=== PATIENT | female | born 1965 | race Caucasian/White ===

== ENCOUNTER 2024-10-21 09:19 | Outpatient (CLI) | payer MEDICARE, SELFPAY ==
--- OUTSIDE RECORDS SUMMARY | 2024-10-21 09:22 | XMS_ITS | Encounter Summary ---
Author Organization [employer] Address [address] [place] [address] Care Team Providers Care Tool Dispatcher Name Role Phone Santosh Briones MD Primary Care Provider [phone] Santosh Briones MD Primary Care Provider [phone] Julius Cho MD Unavailable Lew Ross MD Unavailable Karlos Islas PA-C Unavailable [phone] Encounter Details Date Type Department Care Team (Late st Contact Info) Description 07/24/2021 Transcribed Document [facility] [place] [facility] [place] [address] ProviderAle MD [address] [place] [address] Social History Tobacco Use Types Packs/Day Years Used Date Smoking Tobacco: Never Assessed Comments Unknown Sex and Gender Information Value Date Recorded Sex Assigned at Female 03/19/2022 10:49 AM PRIZE COORDINATOR Legal Sex Female 5:46 PM CDT Gender Identity Female 03/19/2022 10:49 AM PRIZE COORDINATOR Sexual Orientation Not on file documented as of this encounter Miscellaneous Notes * Cerner Conversion Note - Ale Johnson MD - 07/24/2021 1:17 PM CDT Patient Education Materials Follows: How to Use Compression Stockings Compression stockings are elastic socks that squeeze the legs. They help increase blood flow (circulation) to the legs, decrease swelling in the legs, and reduce the chance of developing blood clots in the lower legs. Compression stockings are often used by people who: ??? Are recovering from surgery. ??? Have poor circulation in their legs. ??? Tend to get blood clots in their legs. ??? Have bulging (varicose) veins. ??? Sit or stay in bed for long periods of time. Follow instructions from your health care provider about how and when to wear your compression stockings. How to wear compression stockings Before you put on your compression stockings: ??? Make sure that they are the correct size and degree of compression. If you do not know your size or required grade of compression, ask your health care provider and follow the manufacturers representative's instructions that come with the stockings. ??? Make sure that they are clean, dry, and in good condition. ??? Check them for rips and tears. Do not put them on if they are ripped or torn. Put your stockings on first thing in the morning, before you get out of bed. Keep them on for as long as your health care provider advises. When you are wearing your stockings: ??? Keep them as smooth as possible. Do not allow them to bunch up. It is especially important to prevent the stockings from bunching up around your toes or behind your knees. ??? Do not roll the stockings downward and leave them rolled down. This can decrease blood flow to your leg. ??? Change them right away if they become wet or dirty. When you take off your stockings, inspect your legs and feet. Check for: ??? Open sores. ??? Red spots. ??? Swelling. General tips ??? Do not stop wearing compression stockings without talking to your health care provider first. ??? Wash your stockings every day with mild detergent in cold or warm water. Do not use bleach. Air-dry your stockings or dry them in a clothes dryer on low heat. It may be helpful to have two pairs so that you have a pair to wear while the other is being washed. ??? Replace your stockings every 3?6 months. ??? If skin moisturizing is part of your treatment plan, apply lotion or cream at night so that your skin will be dry when you put on the stockings in the morning. It is harder to put the stockings on when you have lotion on your legs or feet. ??? Wear nonskid shoes or slip-resistant socks when walking while wearing compression stockings. Contact a health care provider and remove your stockings if you have: ??? A feeling of pins and needles in your feet or legs. ??? Open sores, red spots, or other skin changes on your feet or legs. ??? Swelling or pain that gets worse. Get help right away if you have: ??? Numbness or tingling in your lower legs that does not get better right after you take the stockings off. ??? Toes or feet that are unusually cold or turn a bluish color. ??? A warm or red area on your leg. ??? New swelling or soreness in your leg. ??? Shortness of breath. ??? Chest pain. ??? A fast or irregular heartbeat. ??? Light-headedness. ??? Dizziness. Summary ??? Compression stockings are elastic socks that squeeze the legs. ??? They help increase blood flow (circulation) to the legs, decrease swelling in the legs, and reduce the chance of developing blood clots in the lower legs. ??? Follow instructions from your health care provider about how and when to wear your compression stockings. ??? Do not stop wearing your compression stockings without talking to your health care provider first. This information is not intended to replace advice given to you by your health care provider. Make sure you discuss any questions you have with your health care provider. Document Revised: 08/22/2020 Document Reviewed: 08/22/2020 Elsevier Patient Education ? 2020 [employer] Infectious Disease Wound Infection A wound infection happens when germs start to grow in a wound. Germs that cause wound infections are most often bacteria. Other types of infections can occur as well. An infection can cause the wound to break open. Wound infections need treatment. If a wound infection is not treated, problems can happen. What are the causes? Most often caused by germs (bacteria) that grow in a wound. ??? Other germs, such as yeast and funguses, can also cause wound infections. What increases the risk? Having a weak body defense system (immune system). ??? Having diabetes. ??? Taking certain medicines (steroids) for a long time. ??? Smoking. ??? Being an older person. ??? Being overweight. ??? Taking certain medicines for cancer treatment. What are the signs or symptoms? Having more redness, swelling, or pain at the wound site. ??? Having more blood or fluid at the wound site. ??? A bad smell coming from a wound or bandage (dressing). ??? Having a fever. ??? Feeling very tired. ??? Having warmth at or around the wound. ??? Having pus at the wound site. How is this treated? This condition is most often treated with an antibiotic medicine. ? The infection should improve 24?48 hours after you start antibiotics. ? After 24?48 hours, redness around the wound should stop spreading. The wound should also be less painful. Follow these instructions at home: Medicines ??? Take or apply zokp-oyv-tpzaezn and prescription medicines only as told by your doctor. ??? If you were prescribed an antibiotic medicine, take or apply it as told by your doctor. Do not stop using the antibiotic even if you start to feel better. Wound care ??? Clean the wound each day, or as told by your doctor. ? Wash the wound with mild soap and water. ? Rinse the wound with water to remove all soap. ? Pat the wound dry with a clean towel. Do not rub it. ??? Follow instructions from your doctor about how to take care of your wound. Make sure you: ? Wash your hands with soap and water before and after you change your bandage. If you cannot use soap and water, use hand fish dressing machine feeder. ? Change your bandage as told by your doctor. ? Leave stitches (sutures), skin glue, or skin tape (adhesive) strips in place if your wound has been closed. They may need to stay in place for 2 weeks or longer. If tape strips get loose and curl up, you may trim the loose edges. Do not remove tape strips completely unless your doctor says it is okay. Some wounds are left open to heal on their own. ??? Check your wound every day for signs of infection. Watch for: ? More redness, swelling, or pain. ? More fluid or blood. ? Warmth. ? Pus or a bad smell. General instructions ??? Keep the bandage dry until your doctor says it can be removed. ??? Do not take baths, swim, or use a hot tub until your doctor approves. Ask your doctor if you may take showers. You may only be allowed to take sponge baths. ??? Raise (elevate) the injured area above the level of your heart while you are sitting or lying down. ??? Do not scratch or pick at the wound. ??? Keep all follow-up visits as told by your doctor. This is important. Contact a doctor if: ??? Medicine does not help your pain. ??? You have more redness, swelling, or pain around your wound. ??? You have more fluid or blood coming from your wound. ??? Your wound feels warm to the touch. ??? You have pus coming from your wound. ??? You notice a bad smell coming from your wound or your bandage. ??? Your wound that was closed breaks open. Get help right away if: ??? You have a red streak going away from your wound. ??? You have a fever. Summary ??? A wound infection happens when germs start to grow in a wound. ??? This condition is usually treated with an antibiotic medicine. ??? Follow instructions from your doctor about how to take care of your wound. ??? Contact a doctor if your wound infection does not start to get better in 24?48 hours, or your symptoms get worse. ??? Keep all follow-up visits as told by your doctor. This is important. This information is not intended to replace advice given to you by your health care provider. Make sure you discuss any questions you have with your health care provider. Document Revised: 11/30/2018 Document Reviewed: 11/30/2018 [employer] Patient Education ? 2020 Elsevier Inc. Pharmacology Moderate Conscious Sedation, Adult, Care After This sheet gives you information about how to care for yourself after your procedure. Your health care provider may also give you more specific instructions. If you have problems or questions, contact your health care provider. What can I expect after the procedure? After the procedure, it is common to have: ??? Sleepiness for several hours. ??? Impaired judgment for several hours. ??? Difficulty with balance. ??? Vomiting if you eat too soon. Follow these instructions at home: For the time period you were told by your health care provider: ??? Rest. ??? Do not participate in activities where you could fall or become injured. ??? Do not drive or use machinery. ??? Do not drink alcohol. ??? Do not take sleeping pills or medicines that cause drowsiness. ??? Do not make important decisions or sign legal documents. ??? Do not take care of children on your own. Eating and drinking ??? Follow the diet recommended by your health care provider. ??? Drink enough fluid to keep your urine pale yellow. ??? If you vomit: ? Drink water, juice, or soup when you can drink without vomiting. ? Make sure you have little or no nausea before eating solid foods. General instructions ??? Take lkei-hnl-kpotbyl and prescription medicines only as told by your health care provider. ??? Have a responsible adult stay with you for the time you are told. It is important to have someone help care for you until you are awake and alert. ??? Do not smoke. ??? Keep all follow-up visits as told by your health care provider. This is important. Contact a health care provider if: ??? You are still sleepy or having trouble with balance after 24 hours. ??? You feel light-headed. ??? You keep feeling nauseous or you keep vomiting. ??? You develop a rash. ??? You have a fever. ??? You have redness or swelling around the IV site. Get help right away if: ??? You have trouble breathing. ??? You have new-onset confusion at home. Summary ??? After the procedure, it is common to feel sleepy, have impaired judgment, or feel nauseous if you eat too soon. ??? Rest after you get home. Know the things you should not do after the procedure. ??? Follow the diet recommended by your health care provider and drink enough fluid to keep your urine pale yellow. ??? Get help right away if you have trouble breathing or new-onset confusion at home. This information is not intended to replace advice given to you by your health care provider. Make sure you discuss any questions you have with your health care provider. Document Revised: 08/17/2020 Document Reviewed: 03/15/2020 Elsevier Patient Education ? 2020 [employer] documented in this encounter Plan of Treatment Not on file documented as of this encounter Visit Diagnoses Not on filedocumented in this encounter Care Teams Tool Dispatcher Relationship Specialty Start Date End Date Santosh Briones MD [address] [place], [place] [id number] PCP - General General Internal Medicine 04/18/22 04/22/22 Santosh Briones MD [address] [facility] [address] [place], [place] [id number] PCP - General General Internal Medicine 04/23/22 Julius Cho MD [address] [place] [address] Referring Physician Internal Medicine 04/23/22 Lew Ross MD [address] [facility] [address] [place] [address] Cardiology 08/13/23 Karlos Islas PA-C [address] [facility] [address] [place] [address] Cardiology 11/23/23 documented as of this encounter
--- OUTSIDE RECORDS SUMMARY | 2024-10-21 09:22 | XMS_ITS | Encounter Summary ---
Author Organization [employer] Address [address] [place] [address] Care Team Providers Care Gear Cutting Machine Set Up Operator Name Role Phone Santosh Briones MD Primary Care Provider [phone] Santosh Briones MD Primary Care Provider [phone] Julius Cho MD Unavailable Lew Ross MD Unavailable Karlos Islas PA-C Unavailable [phone] Encounter Details Date Type Department Care Team (Late st Contact Info) Description 12/19/2020 Transcribed Document [facility] [place] [facility] [place] [address] ProviderAle MD [address] [place] [address] Social History Tobacco Use Types Packs/Day Years Used Date Smoking Tobacco: Never Assessed Comments Unknown Sex and Gender Information Value Date Recorded Sex Assigned at Female 03/19/2022 10:49 AM BUSINESS INITIATIVES MANAGER Legal Sex Female 5:46 PM CDT Gender Identity Female 03/19/2022 10:49 AM BUSINESS INITIATIVES MANAGER Sexual Orientation Not on file documented as of this encounter Miscellaneous Notes * Cerner Conversion Note - Ale Johnson MD - 12/19/2020 8:35 AM CDT [facility] Main OR PostOp Summary Primary Physician: MEE TUCKER, DPM-POD Finalized Date/Time: 12/19/20 12:16:40 Pt. Name: JANIS FIGUEREDO./Sex: 1965 Female Med Rec #: [id number] Physician: MEE TUCKER, DPM-POD Financial #: [id number] Pt. Type: O Room/Bed: Admit/Disch: 12/19/20 06:32:00 - Institution: [facility] Main OR PostOp Case Times Entry 1 In PACU II 12/19/20 11:10:00 Ready for PACU II 12/19/20 12:11:00 Discharge Discharge from PACU 12/19/20 12:11:00 II Last Modified By: SIOMARA ALLEN RN 12/19/20 12:16:39 [facility] Main OR PostOp Case Times Audit 12/19/20 12:16:39 Property Claims Adjuster: [id number] Modifier: [id number] <+> 1 Ready for PACU II Discharge <+> 1 Discharge from PACU II Finalized By: SIOMARA ALLEN RN Document Signatures Signed By: SIOMARA ALLEN RN 12/19/20 12:16 Electronically signed by [facility] Conversion Watch Repairer Cerner at 08/22/2022 3:51 PM CDT documented in this encounter Plan of Treatment Not on file documented as of this encounter Visit Diagnoses Not on filedocumented in this encounter Care Teams Gear Cutting Machine Set Up Operator Relationship Specialty Start Date End Date Santosh Briones MD [address] [facility] [place] [address] [place] [address] PCP - General General Internal Medicine 04/18/22 04/22/22 Santosh Briones MD [address] [place] [address] [place] [address] PCP - General General Internal Medicine 04/23/22 Julius Cho MD [address] [place] [address] Referring Physician Internal Medicine 04/23/22 Lew Ross MD [address] [facility] [address] [place] [address] Cardiology 08/13/23 Karlos Islas PA-C [address] [facility] [address] [place] [address] Cardiology 11/23/23 documented as of this encounter
--- OUTSIDE RECORDS SUMMARY | 2024-10-21 09:22 | XMS_ITS | Encounter Summary ---
Author Organization [employer] Address [address] [place] [address] Care Team Providers Care Haulage Engine Operator Name Role Phone Santosh Briones MD Primary Care Provider [phone] Santosh Briones MD Primary Care Provider [phone] Julius Cho MD Unavailable Lew Ross MD Unavailable Karlos Islas PA-C Unavailable [phone] Encounter Details Date Type Department Care Team (Late st Contact Info) Description 12/19/2020 Transcribed Document [facility] [place] [address] ProviderAle MD [address] [place] [address] Social History Tobacco Use Types Packs/Day Years Used Date Smoking Tobacco: Never Assessed Comments Unknown Sex and Gender Information Value Date Recorded Sex Assigned at Female 03/19/2022 10:49 AM REMOTE SENSING TECHNOLOGIST Legal Sex Female 5:46 PM CDT Gender Identity Female 03/19/2022 10:49 AM REMOTE SENSING TECHNOLOGIST Sexual Orientation Not on file documented as of this encounter Miscellaneous Notes * Cerner Conversion Note - Ale Johnson MD - 12/19/2020 11:47 AM CDT Patient Education Materials Follows: General Anesthesia, Adult, Care After This sheet gives you information about how to care for yourself after your procedure. Your health care provider may also give you more specific instructions. If you have problems or questions, contact your health care provider. What can I expect after the procedure? After the procedure, the following side effects are common: ??? Pain or discomfort at the IV site. ??? Nausea. ??? Vomiting. ??? Sore throat. ??? Trouble concentrating. ??? Feeling cold or chills. ??? Weak or tired. ??? Sleepiness and fatigue. ??? Soreness and body aches. These side effects can affect parts of the body that were not involved in surgery. Follow these instructions at home: For at least 24 hours after the procedure: ??? Have a responsible adult stay with you. It is important to have someone help care for you until you are awake and alert. ??? Rest as needed. ??? Do not: ? Participate in activities in which you could fall or become injured. ? Drive. ? Use heavy machinery. ? Drink alcohol. ? Take sleeping pills or medicines that cause drowsiness. ? Make important decisions or sign legal documents. ? Take care of children on your own. Eating and drinking ??? Follow any instructions from your health care provider about eating or drinking restrictions. ??? When you feel hungry, start by eating small amounts of foods that are soft and easy to digest (bland), such as toast. Gradually return to your regular diet. ??? Drink enough fluid to keep your urine pale yellow. ??? If you vomit, rehydrate by drinking water, juice, or clear broth. General instructions ??? If you have sleep apnea, surgery and certain medicines can increase your risk for breathing problems. Follow instructions from your health care provider about wearing your sleep device: ? Anytime you are sleeping, including during daytime naps. ? While taking prescription pain medicines, sleeping medicines, or medicines that make you drowsy. ??? Return to your normal activities as told by your health care provider. Ask your health care provider what activities are safe for you. ??? Take zmsz-knp-ywxavwb and prescription medicines only as told by your health care provider. ??? If you smoke, do not smoke without supervision. ??? Keep all follow-up visits as told by your health care provider. This is important. Contact a health care provider if: ??? You have nausea or vomiting that does not get better with medicine. ??? You cannot eat or drink without vomiting. ??? You have pain that does not get better with medicine. ??? You are unable to pass urine. ??? You develop a skin rash. ??? You have a fever. ??? You have redness around your IV site that gets worse. Get help right away if: ??? You have difficulty breathing. ??? You have chest pain. ??? You have blood in your urine or stool, or you vomit blood. Summary ??? After the procedure, it is common to have a sore throat or nausea. It is also common to feel tired. ??? Have a responsible adult stay with you for the first 24 hours after general anesthesia. It is important to have someone help care for you until you are awake and alert. ??? When you feel hungry, start by eating small amounts of foods that are soft and easy to digest (bland), such as toast. Gradually return to your regular diet. ??? Drink enough fluid to keep your urine pale yellow. ??? Return to your normal activities as told by your health care provider. Ask your health care provider what activities are safe for you. This information is not intended to replace advice given to you by your health care provider. Make sure you discuss any questions you have with your health care provider. Document Revised: 04/23/2018 Document Reviewed: 12/04/2017 [employer] Patient Education ? 2020 [employer] documented in this encounter Plan of Treatment Not on file documented as of this encounter Visit Diagnoses Not on filedocumented in this encounter Care Teams Haulage Engine Operator Relationship Specialty Start Date End Date Santosh Briones MD [address] [facility] [place] [address] PCP - General General Internal Medicine 04/18/22 04/22/22 Santosh Briones MD [address] [facility] [place] [address] PCP - General General Internal Medicine 04/23/22 Julius Cho MD [address] [place] [address] Referring Physician Internal Medicine 04/23/22 Lew Ross MD [address] [facility] [address] [place] [address] Cardiology 08/13/23 Karlos Islas PA-C [address] [place] [address] Cardiology 11/23/23 documented as of this encounter
--- OUTSIDE RECORDS SUMMARY | 2024-10-21 09:22 | XMS_ITS | Encounter Summary ---
Author Organization [employer] Address [address] [place] [address] Care Team Providers Care Appointment Specialist Name Role Phone Santosh Briones MD Primary Care Provider [phone] Santosh Briones MD Primary Care Provider [phone] Julius Cho MD Unavailable Lew Ross MD Unavailable Karlos Islas PA-C Unavailable [phone] Encounter Details Date Type Department Care Team (Late st Contact Info) Description 07/25/2021 Transcribed Document [facility] [place] [facility] [place] [address] ProviderAle MD [address] [place] [address] Social History Tobacco Use Types Packs/Day Years Used Date Smoking Tobacco: Never Assessed Comments Unknown Sex and Gender Information Value Date Recorded Sex Assigned at Female 03/19/2022 10:49 AM ROUTE SALES SPECIALIST Legal Sex Female 5:46 PM CDT Gender Identity Female 03/19/2022 10:49 AM ROUTE SALES SPECIALIST Sexual Orientation Not on file documented as of this encounter Miscellaneous Notes * Cerner Conversion Note - Ale Johnson MD - 07/25/2021 3:59 PM CDT Nursing Discharge Summary Entered On: 07/25/2021 16:00 EDT Performed On: 07/25/2021 15:59 EDT by Archana Teague, upholstery restorer Documentation Discharge Date/Time : 07/25/2021 16:55 EDT Archana Teague RN - 07/25/2021 17:05 EDT Patient Disposition, General : Discharge Discharge To : Home with ambulatory/outpatient follow-up Mode Of Departure, General Discharge : Wheelchair Accompanied By, Discharge : Spouse IV Discontinued : Yes Discharge Instructions Reviewed With, Opportunity For Questions Given : Patient, Spouse Patient Education Completed : Yes Teaching Method : Explanation, Printed materials Teaching Evaluation : Verbalizes understanding Archana Teague RN - 07/25/2021 15:59 EDT Electronically signed by [facility], [facility] Conversion Blocker Automatic Cerner at 08/22/2022 4:06 PM CDT documented in this encounter Plan of Treatment Not on file documented as of this encounter Visit Diagnoses Not on filedocumented in this encounter Care Teams Appointment Specialist Relationship Specialty Start Date End Date Santosh Briones MD [address] [facility] [address] [place], [place] [id number] PCP - General General Internal Medicine 04/18/22 04/22/22 Santosh Briones MD [address] [facility] [address] [place], [place] [id number] PCP - General General Internal Medicine 04/23/22 Julius Cho MD [address] [place] [address] Referring Physician Internal Medicine 04/23/22 Lew Ross MD [address] [facility] [address] [place] [address] Cardiology 08/13/23 Karlos Islas PA-C [address] [place] [address] Cardiology 11/23/23 documented as of this encounter
--- OUTSIDE RECORDS SUMMARY | 2024-10-21 09:22 | XMS_ITS | Encounter Summary ---
Author Organization [employer] Address [address] [place] [address] Care Team Providers Care Cognos Architect Name Role Phone Santosh Briones MD Primary Care Provider [phone] Santosh Briones MD Primary Care Provider [phone] Julius Cho MD Unavailable Lew Ross MD Unavailable Karlos Islas PA-C Unavailable [phone] Encounter Details Date Type Department Care Team (Late st Contact Info) Description 07/25/2021 Transcribed Document [facility] [place] [facility] [place] [address] ProviderAle MD [address] [place] [address] Social History Tobacco Use Types Packs/Day Years Used Date Smoking Tobacco: Never Assessed Comments Unknown Sex and Gender Information Value Date Recorded Sex Assigned at Female 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 Sex Female 5:46 PM CDT Gender Identity Female 03/19/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 Sexual Orientation Not on file documented as of this encounter Miscellaneous Notes * Cerner Conversion Note - Ale Johnson MD - 07/25/2021 12:16 PM CDT Pre Procedure Adult Entered On: 07/25/2021 12:17 EDT Performed On: 07/25/2021 12:16 EDT by Archana Teague RN Height and Weight, Clinical Dosing Height Source : Stated Height Entry Format : Dorothy Height, Feet : 5 ft(Converted to: 152 cm, 60 Inch) Height, Inches : 7 Inch(Converted to: 0 ft 7 Inch, 17.78 cm) Clinical Height : 170.18 cm Weight Source : Standing scale Weight Entry Format : Dorothy Clinical Dosing Weight : 126.82 kg Weight, Pounds : 279 lb Body Surface Area (BSA) : 2.33 m2 Body Mass Index : 43.8 kg/m2 (>HHI) [place] Body Weight : 61 kg Archana Teague RN - 07/25/2021 12:16 EDT Electronically signed by [facility] Conversion Dictaphone Transcriber Cerner at 08/22/2022 4:07 PM CDT documented in this encounter Plan of Treatment Not on file documented as of this encounter Visit Diagnoses Not on filedocumented in this encounter Care Teams Cognos Architect Relationship Specialty Start Date End Date Santosh Briones MD [address] [place], [place] [address] PCP - General General Internal Medicine 04/18/22 04/22/22 Santosh Briones MD [address] [place], [place] [id number] PCP - General General Internal Medicine 04/23/22 Julius Cho MD [address] [address] Referring Physician Internal Medicine 04/23/22 Lew Ross MD [address] [facility] [address] [place] [address] Cardiology 08/13/23 Karlos Islas PA-C [address] [facility], [facility] [address] [place] [address] Cardiology 11/23/23 documented as of this encounter
--- OUTSIDE RECORDS SUMMARY | 2024-10-21 09:22 | XMS_ITS | Clinical Summary ---
Author Organization [facility] Address [address] [place] [address] Phone Care Team Providers Care Death Clearance Coordinator Name Role Phone Chris Nunn MD [ ] Conditions or Problems Problem Name Problem Code Onset Date Status Entry Date Provider Comment Standard Description Annotate Hx of pulmonary embolism 284118170 (SNOMED CT) 08/25 Resolved 08/25 Natalia Herron H/O: pulmonary embolus Morbid obesity due to excess calories E66.01 (ICD-10-CM ) 08/25 Active 08/25 Natalia Herron Morbid (severe) obesity due to excess calories Benign Essential Hypertension 80980345 (SNOMED CT) 08/25 Active 08/25 Natalia Herron Benign hypertension Candidiasis of vulva and vagina, acute B37.31 (ICD-10-CM ) 09/20 Active 09/20 Natalia Herron Acute candidiasis of vulva and vagina Yeast infection 1050296 (SNOMED CT) 09/20 Inactive 09/20 Chris Nunn MD Mycosis Scleroderma 40256245 (SNOMED CT) 08/25 Active 08/25 Dania Faulkner Systemic sclerosis Personal history of allergy Bactrim 707809699 (SNOMED CT) 08/25 Active 08/25 Dania Faulkner 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[employer] current use of anticoagulan ts 581275640 (SNOMED CT) 08/25 Active 08/25 Dania Faulkner Drug therapy finding Hx of pulmonary embolism 957569045 (SNOMED CT) 08/25 Removed 08/25 Dania Faulkner H/O: pulmonary embolus Presence of left artificial ankle joint 928923399 (SNOMED CT) 08/25 Active 08/25 Dania Faulkner Prosthetic total arthroplasty of ankle Morbid obesity 226542422 (SNOMED CT) 08/25 Inactive 08/25 Dania Faulkner Morbid obesity CAD (coronary artery disease) 58257248 (SNOMED CT) 08/25 Active 08/25 Dania Faulkner Coronary arteriosclerosis Hypertension 92600298 (SNOMED CT) 08/25 Inactive 08/25 Dania Faulkner Hypertensive disorder Chronic ulcer of left ankle, skin layer only 139394440 (SNOMED CT) 08/25 Active 08/25 Dania Faulkner Chronic ulcer of ankle Cellulitis of left lower limb 722920475 (SNOMED CT) 08/20 Active 08/20 Dania Faulkner Cellulitis of leg, excluding foot Chronic osteomyeliti s, left ankle 202157451 (SNOMED CT) 08/20 Active 08/20 Dania Faulkner Chronic osteomyelitis of ankle and/or foot Medications Medication Instructions Start Date Stop Date Generic Name NDC Provider MINOCYCLINE HCL 100 MG TABS Take 1 tablet by mouth once a day minocycline 21655554834 Chris Nunn MD DIFLUCAN 200 MG TABS 1 tablet by mouth once a day as needed for yeast infection fluconazole 57898550214 Chris Nunn MD DOXYCYCLINE HYCLATE 100 MG CAPS 1 capsule by mouth once a day doxycycline hyclate 39055421600 Chris Nunn MD FOLIC ACID 400 MCG TABS Take 2 tablet by mouth once a day folic acid 35680894056 Margaret Bermudez ACETAMINOPHEN 500 MG TABS Take 1 tablet by mouth every six hours as needed acetaminophen 48448545345 Margaret Bermudez NATURAL VITAMIN D-3 125 MCG (5000 UT) TABS Take 1 tablet by mouth once a day cholecalciferol (vitamin d3) 78917907031 Margaret Bermudez ASPIRIN LOW DOSE 81 MG TBEC Take 1 tablet by mouth once a day aspirin 27688914411 Margaret Bermudez FUROSEMIDE 40 MG TABS Take 1 tablet by mouth once a day furosemide 02126314933 Margaret Bermudez apixaban (Eliquis) 5 mg Tab tablet Take 1 tablet by mouth twice a day Eliquis Margaret Bermudez PANTOPRAZOLE SODIUM 40 MG TBEC Take 1 tablet by mouth once a day pantoprazole 68616737820 Margaret Bermudez VITAMIN B-12 1000 MCG TABS Take 1 tablet by mouth once a day cyanocobalamin (vitamin b-12) 29594622469 Margaret Bermudez SACCHAROMYCES BOULARDII 250 MG CAPS Take 1 capsule (250 mg total) by mouth 2 (two) times daily for 7 days. saccharomyces boulardii 39485411177 QIE qieuser PANTOPRAZOLE SODIUM 40 MG TBEC Take 1 tablet (40 mg total) by mouth daily. pantoprazole 39136189281 QIE qieuser FUROSEMIDE 40 MG TABS Take 1 tablet (40 mg total) by mouth daily. furosemide 73556525312 QIE qieuser FOLIC ACID 400 MCG TABS Take 2 tablets (800 mcg total) by mouth daily. folic acid 43219089646 QIE qieuser VITAMIN B-12 1000 MCG TABS Take 1 tablet (1,000 mcg total) by mouth daily. cyanocobalamin (vitamin b-12) 07368967440 QIE qieuser NATURAL VITAMIN D-3 125 MCG (5000 UT) TABS Take 1 tablet (5,000 Units total) by mouth daily. cholecalciferol (vitamin d3) 82104253395 QIE [employer]ieuser ASPIRIN LOW DOSE 81 MG TBEC Take 1 tablet (81 mg total) by mouth daily. aspirin 26886635994 QIE qieuser apixaban (Eliquis) 5 mg Tab tablet Take 1 tablet (5 mg total) by mouth 2 (two) times daily. Eliquis QIE qieuser ALENDRONATE SODIUM 70 MG TABS Take 1 tablet (70 mg total) by mouth every 7 days Take in the morning with a full glass of water, on an empty stomach, and do not take anything else by mouth or lie down for the next 30 min.. alendronate 06920179438 QIE qieuser ACETAMINOPHEN 500 MG TABS Take 1 tablet (500 mg total) by mouth every 6 (six) hours as needed for up to 10 days. acetaminophen 20806013104 QIE qieuser Cubicin RF 500 mg intravenous solution 500mg IV Q24hrs/ OPAT daptomycin 69088167071 Jasmin Proctor RN CEFTRIAXONE SODIUM 2 GM SOLR 2gm IV Q24hrs/ OPAT ceftriaxone 83142040957 Jasmin Proctor RN Medications Administered No information available. Allergies, Adverse Reactions, Alerts Allergy Name Reaction Description Start Date Severity Statu s Provider SULFAMETHOXAZOLE-TRIMETH OPRIM Nausea And Vomiting Mild Active Simi Starr bill MORPHINE Other (See Comments) Mild Active Simi Poncho Results Date Name Value Unit Range Flag Description Clinical Lists Update: Prelo ad VAPE_USE Never Tobacco smok ing status Lab Report: CBC WITH AUTO DI FFERENTIAL ZZ-GE-unk 0.0 /100 WBC 0.0-0.2 GE use only - fo r Link[employer]ic import when terms are not otherwise specified LYMPHOCY BF 26.3 % 19.6-45.3 lymphoc ytes as percent of body fluid leukocytes NEUTROP BF 64.9 % 42.7-76.0 Neutroph ils/100 leukocytes in Body fluid RDW_ 14.0 12.3-15.4 RDW, no uni ts Lab Report: CK CPK 36 U/L 20-180 Creatine riki se [Enzymatic activity/volume] in Serum or Plasma Lab Report: COMPREHENSIVE ME TABOLIC PANEL ANIONGAP 7.0 mmol/L 5.0-15.0 anion gap, serum Lab Report: CBC With Differe ntial/Platelet, Comp. Metabolic Panel (14), ... CRP 5 MG/L 0-10 C reactive pr otein [Mass/volume] in Serum or Plasma ESR 31 mm/h 0-40 Erythrocyte sedimentation rate by Westergren method SGPT (ALT) 7 U/L 0-32 Alanine aminotransferase [Enzymatic activity/volume] in Serum or Plasma SGOT (AST) 13 U/L 0-40 Aspartate aminotransferase [Enzymatic activity/volume] in Serum or Plasma ALK PHOS 113 U/L 44-121 Alkaline saira sphatase [Enzymatic activity/volume] in Blood BILI TOTAL 0.3 mg/dL 0.0-1.2 Bilirubin. total [Mass/volume] in Serum or Plasma GLOBULIN 3.1 1.5-4.5 Globulin [Mass/volume] in Serum ALBUMIN 3.9 g/dL 3.8-4.9 Albumin [Mass/volume] in Serum or Plasma PROTEIN, TOT 7.0 g/dL 6.0-8.5 Protein [Mass/volume] in Serum or Plasma CALCIUM 9.4 mg/dL 8.7-10.3 Calcium [Moles/volume] in Serum or Plasma CO2 27 mmol/L 20-29 Carbon dioxid e, total [Moles/volume] in Venous blood CHLORIDE 104 mmol/L 96-106 Chloride [Moles/volume] in Serum or Plasma POTASSIUM 4.0 mmol/L 3.5-5.2 Potassium [Moles/volume] in Serum or Plasma SODIUM 145 mmol/L 134-144 H Sodium [Moles/volume] in Serum or Plasma BUN/CREAT 16 12-28 Urea nitrogen/Creatinine [Mass Ratio] in Serum or Plasma CREATININE 0.87 mg/dL 0.57-1.00 Creatini ne [Mass/volume] in Serum or Plasma BUN 14 mg/dL 8-27 Urea nitrogen [Mass/volume] in Serum or Plasma GLUCOSE SER 100 mg/dL 70-99 H Glucose [Mass/volume] in Serum or Plasma IMMATUREGRAN 0.0 X10E3/UL 0.0-0.1 Immature granulocytes [#/volume] in Blood IMM GRANU % 0 % Not Estab. Immature granulocytes/100 leukocytes in Blood BASO# 0.0 x10E3/uL 0.0-0.2 Basophils [#/vol ume] in Blood EOS ABSLT 0.1 X10E3/UL 10*3/uL 0.0-0.4 Eosinophils [#/volume] in Blood MONOSCT AUTO 0.4 X10E3/UL 10*3/uL 0.1-0.9 Monocytes [#/vol ume] in Blood by Automated count LYMPHCT AUTO 1.6 X10E3/UL 10*3/mm3 0.7-3.1 Lymphocytes [#/volume] in Blood by Automated count ABS NEUTROPH 4.1 X10E3/UL 10*3/uL 1.4-7.0 Neutrophils [#/volume] in Blood BASOPHIL % 1 % Not Estab. Basophils/100 leukocytes in Blood by Manual count % EOS AUTO 1 % Not Estab. Eosinophils/100 leukocytes in Blood by Automated count MONOCYTE % 6 % Not Estab. Monocytes/100 leukocytes in Blood by Automated count LYMPHS % 26 % Not Estab. Lymphocytes/100 leukocytes in Blood by Automated count PMN % 66 % Not Estab. Neutrophils/100 leukocytes in Blood by Automated count PLATELETS 369 X10E3/UL 10*3/mm3 150-450 Platelets [#/vol ume] in Blood by Automated count RDW 14.7 % 11.7-15.4 Erythrocyte distribution width [Ratio] by Automated count MCHC 30.1 G/DL 31.5-35.7 L MCHC [Mass/ volume] by Automated count MCH 25.5 pg 26.6-33.0 L MCH [Entiti c mass] by Automated count MCV 85 fL 79-97 MCV [Entitic volume] by Automated count HCT 36.2 % 34.0-46.6 Hematocrit [Volume Fraction] of Blood by Automated count HGB 10.9 g/dL 11.1-15.9 L Hemoglobin [Mass/volume] in Blood RBC 4.27 X10E6/UL 10*6/mm3 3.77-5.28 Erythrocytes [#/volume] in Blood by Automated count WBC 6.3 X10E3/UL 10*3/mm3 3.4-10.8 Leukocytes [#/volume] in Blood by Automated count Office Visit: Office Visit: 2 MEDS REVIEW Done Documenta tion of current medications (procedure) ORALTOBACUSE Never Tobacco smoking status SMOK STATUS Never smoker Tobacco smoking status Plan of Care Type Date Detail Pending order Continue oral an tibiotics Pending order Change oral anti biotics Pending order CMP Pending order CBC with Differe ntial Pending order C- reactive prot ein Pending order Sedimentation Ra te (ESR) Pending order New Oral Antibio tic Pending order Discontinue IV a ntibiotics Pending order PICC Removal Pending order Weekly PICC Line Care Pending order Weekly Labs (Con tinue) Pending order Continue IV anti biotics Pending order Weekly PICC Line Care Pending order Weekly Labs (Con tinue) Pending order Continue IV anti biotics Pending order Weekly PICC Line Care Pending order Weekly Labs (Con tinue) Pending order Stat Weekly Labs Pending order Daptomycin Pending order Ceftriaxone Procedures Code Procedure Name Date Entry Date CPT-81366 CMP [id number] CBC with Differential 2023 CPT-02031 C- reactive protein CPT-66900 Sedimentation Rate (ESR) 202 08/10/07 CPT-coral Change oral antibiotics 2023 CPT-jason New Oral Antibiotic CPT-DC Discontinue IV antibiotics 2 CPT-PICREM PICC Removal CPT-wpc Weekly PICC Line Care 09/13 CPT-cwl Weekly Labs (Continue) 09/13 CPT-ca Continue IV antibiotics 2023 CPT-wpc Weekly PICC Line Care 09/06 CPT-cwl Weekly Labs (Continue) 09/06 CPT-ca Continue IV antibiotics 2023 CPT-wpc Weekly PICC Line Care 08/30 CPT-cwl Weekly Labs (Continue) 08/30 CPT- stat weekly Stat Weekly Labs CPT-J0878 Daptomycin CPT-J0696 Ceftriaxone Vital Signs Date Name Value Unit Description BMI (Body Mass Index) 43.76 kg/m2 Bod y Mass Index (Ratio) Body Temperature 97.8 [degF] temperat ure E&M BP Diastolic 78 mm[Hg] blood pressu re, diastolic BP Systolic 138 mm[Hg] blood pressur e, systolic Heart Rate 68 /min pulse rate Height 67 [in_us] height E&M Respiratory Rate 16 /min respirat ory rate E&M Weight Measured 279.4 [lb_av] weight E& M Weight Measured 279.4 [lb_av] weight E& M Immunizations No information available. Advance Directives Directive Description Start Date NO ADVANCED DIRECTIVES AT THIS TIME 2023
--- OUTSIDE RECORDS SUMMARY | 2024-10-21 09:22 | XMS_ITS | Encounter Summary ---
Author Organization [employer] Address [address] [place] [address] Care Team Providers Care Management Coordinator Name Role Phone Santosh Briones MD Primary Care Provider [phone] Santosh Briones MD Primary Care Provider [phone] Julius Cho MD Unavailable Lew Ross MD Unavailable Karlos Islas PA-C Unavailable [phone] Encounter Details Date Type Department Care Team (Late st Contact Info) Description 12/19/2020 Transcribed Document [facility] [place] [address] ProviderAle MD [address] [place] [address] Social History Tobacco Use Types Packs/Day Years Used Date Smoking Tobacco: Never Assessed Comments Unknown Sex and Gender Information Value Date Recorded Sex 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 Female 5:46 PM CDT Gender Identity Female 03/19/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 Sexual Orientation Not on file documented as of this encounter Miscellaneous Notes * Cerner Conversion Note - Ale Johnson MD - 12/19/2020 7:49 AM CDT Peripheral Nerve Block Entered On: 12/19/2020 7:51 EDT Performed On: 12/19/2020 7:49 EDT by Pérez Gil, Rn Peripheral Nerve Block Peripheral Nerve Block Start Date/Time : 12/19/2020 7:40 EDT Verbally Confirm Pt, Site, and Procedure : Yes Time Out Pause Time : 12/19/2020 7:38 EDT Site Marked and Visible : Yes Site Preparation : Chlorhexidine (Hibiclens) Peripheral Nerve Block : Adductor Canal, Popliteal Laterality : Right Peripheral Nerve Block Performed by : FREIDA COCHRAN MD-ANS Medication Delivery Method : Single Shot Peripheral Nerve Block Assisted by : Pérez Gil Rn Ultra sound used during insertion : Yes Nerve Block Activity, Patient Tolerance : Good Peripheral Nerve Block End Date/Time : 12/19/2020 7:48 EDT Pérez Gil Rn - 12/19/2020 7:49 EDT Electronically signed by [facility] Conversion Ruby Developer Cerner at 08/22/2022 3:50 PM CDT documented in this encounter Plan of Treatment Not on file documented as of this encounter Visit Diagnoses Not on filedocumented in this encounter Care Teams Management Coordinator Relationship Specialty Start Date End Date Santosh Briones MD [address] [facility] [address] [place], [place] [id number] PCP - General General Internal Medicine 04/18/22 04/22/22 Santosh Briones MD [address] [facility] [address] [place], [place] [id number] PCP - General General Internal Medicine 04/23/22 Julius Cho MD [address] [place] [address] Referring Physician Internal Medicine 04/23/22 Lew Ross MD [address] [facility] [address] [place] [address] Cardiology 08/13/23 Karlos Islas PA-C [address] [facility] [place] [address] Cardiology 11/23/23 documented as of this encounter
--- OUTSIDE RECORDS SUMMARY | 2024-10-21 09:22 | XMS_ITS | Encounter Summary ---
Author Organization [employer] Address [address] [place] [address] Care Team Providers Care Logistics And Planning Manager Name Role Phone Santosh Briones MD Primary Care Provider [phone] Santosh Briones MD Primary Care Provider [phone] Julius Cho MD Unavailable Lew Ross MD Unavailable Karlos Islas PA-C Unavailable [phone] Encounter Details Date Type Department Care Team (Late st Contact Info) Description 12/19/2020 Transcribed Document [facility] [place] [facility] [place] [address] ProviderAle MD [address] [place] [address] Social History Tobacco Use Types Packs/Day Years Used Date Smoking Tobacco: Never Assessed Comments Unknown Sex and Gender Information Value Date Recorded Sex Assigned at Female 03/19/2022 10:49 AM TECHNICAL ARCHITECT Legal Sex Female 5:46 PM CDT Gender Identity Female 03/19/2022 10:49 AM TECHNICAL ARCHITECT Sexual Orientation Not on file documented as of this encounter Miscellaneous Notes * Cerner Conversion Note - Ale Johnson MD - 12/19/2020 11:50 AM CDT [facility] [place] [address] JANIS FIGUEREDO :1965 Visit Time:12/19/2020 What to do next Your Diagnosis Calcaneal spur, unspecified foot, Calcaneal spur, unspecified foot Other acquired deformities of unspecified foot Pain in right foot Instructions From Your Care Team Diet after Discharge: Resume usual diet as tolerated, Do not drink any alcoholic beverages Activity after Discharge: Rest and relax today, No strenuous activity. Non weight bearing with right foot. Offload heel in bed with Prevalon boot Lifting Restrictions: No heavy lifting Driving after Discharge: Do not drive for 24 hours or while taking narcotic pain medications Showering/Bathing: Do not get dressing wet Notify Provider of: Fever or chills, excessive bleeding, pain uncontrolled by medication, swelling, pus-like drainage Wound/Incision Care after Discharge: DO NOT CHANGE DRESSING See separate sheet for additional post operative instructions Take pain medication with food, take stool softeners while on pain medication. Do Not exceed 4000mg of acetaminophen (Tylenol) per day. Use Incentive Spirometer every 2 hours while awake May resume Eliquis tomorrow 12/20/20 Discharge Follow Up Instructions: Follow-Up Appointments Follow Up with MEE TUCKER DPM-POD When Within 2 to 3 days Comments Follow up Thursday as scheduled Where: [address] [place] [address] Medications What How Much When Instructions Next Dose acetaminophen-oxyCODONE (acetaminophen-oxyCODONE 325 mg-7.5 mg oral tablet) 1 Tablet(s) Oral Every 6 Hours as needed for for pain Pickup at [place] [address] apixaban (Eliquis 5 mg oral tablet) 1 Tablet(s) Oral Two Times A Day atorvastatin (atorvastatin 40 mg oral tablet) 1 Tablet(s) Oral Every Day cephalexin (Keflex 500 mg oral capsule) 1 Capsule(s) Oral Every 8 Hours Duration: 1 Day(s) Pickup at [place] [address] cyanocobalamin (Vitamin B12 1000 mcg oral tablet) 1 Tablet(s) Oral Every Day furosemide (furosemide 40 mg oral tablet) 1 Tablet(s) Oral Every Day gabapentin (gabapentin 300 mg oral capsule) 1 Capsule(s) Oral Two Times A Day lisinopril (lisinopril 20 mg oral tablet) 1 Tablet(s) Oral Every Day Non Formulary (Turmeric) 1,000 Milligram(s) Oral Every Day pantoprazole (pantoprazole 40 mg oral delayed release tablet) 1 Tablet(s) Oral Every Day promethazine (promethazine 25 mg oral tablet) 1 Tablet(s) Oral Three Times A Day as needed for as needed for nausea/vomiting Pickup at [place] [address] Pharmacy Information [place] [address]: [address] [facility] [address] [place], [place] [id number] [phone] Take your medications faithfully. Do NOT skip medication. Do NOT stop taking medications without the direction of a physician. Carry a list of your medications with you at all times, and take this medication list with you to your first follow up visit. Report any side effects. Avoid herbal remedies unless discussed with your physician. As part of your treatment plan, your physician may have prescribed a limited course of a controlled substance. This medication may be given to help people with moderate or severe pain or for other medical conditions, but there are risks involved with treatment. Common side effects may include nausea, constipation, drowsiness, sweating, itching, dry mouth, and rash. More serious side effects may include cognitive and motor impairment, like problems with thinking, concentrating, alertness, and movement (e.g. slowed reflexes), and driving and operating heavy machinery can be dangerous. It is important for you to talk to your physician if you have these side effects or questions. These controlled substances can produce physical dependence and be habit-forming if taken for an extended period of time, which means that the body has gotten used to them and may experience withdrawal symptoms if they are abruptly stopped. Withdrawal symptoms can include runny nose, sweating, goose bumps, diarrhea, abdominal cramping, rapid heartbeat, difficulty sleeping, and nervousness. Please dispose of unused and medications per pharmacy guidance. Education Materials General Anesthesia, Adult, Care After This sheet [...] activities are safe for you. ??? Take kyly-qoh-isqnxqo and prescription medicines only as told by [...] provider. Document Revised: 04/23/2018 Document Reviewed: 12/04/2017 [employer] Patient Education ?? 2020 [employer]. Emergency Awareness and Preventative Care STROKE is an EMERGENCY Every Minute Counts Act FAST and Check for these signs: FACE Does the face look uneven? ARM Does one arm drift down? SPEECH Does their speech sound strange? TIME Call at any sign of stroke Stroke Risk Factors Atrial Fibrillation (irregular heartbeat) Diabetes Family history of stroke Heart Disease Heavy alcohol use High Blood Pressure High Cholesterol Physical inactivity and obesity Smoking Cigarette Smoking The facts are clear, cigarette smoking will shorten your life. Smoking can cause many illnesses along the way. As a healthcare provider, we recommend that you stop smoking. Assistance with quitting is available by contacting 7-003-NMNQ-NOW. This is a free resource providing counseling, support, and referral. Or you may contact your personal physician. National Suicide Prevention Lifeline: The National Suicide Prevention Lifeline is a national network of local crisis centers that provides free and confidential emotional support to people in suicidal crisis or emotional distress 24 hours a day, 7 days a week. Don't Wait! Stop a Heart Attack Before it Starts What is a heart attack? A heart attack is damage or to a part of the heart from severely decreased or lack of blood flow to the heart. Over time, arteries can become narrow from the buildup of fat and cholesterol, which is called plaque. The plaque can rupture causing a blood clot to form. When the blood clot forms, the artery can become severely narrowed or completely blocked, causing a heart attack. Heart attack is the leading cause of in the [place]. 85% of muscle damage occurs within the first 2 hours. Delay in the recognition of heart attack symptoms increases the chances of . Know the early symptoms of a heart attack: Nausea Feeling of fullness in chest Jaw Pain Pain that travels down one or both arms Fatigue/being tired Anxiety Back Pain Chest pressure, squeezing, or discomfort Shortness of breath Sweating, or a cold sweat Feeling of impending doom There are unusual signs of a heart attack, too! Women, the elderly, and diabetics may present with atypical symptoms: Fainting/dizziness Weakness Confusion Risk Factors for a Heart Attack Some heart disease risk factors, such as age and family history, cannot be changed. Others, like smoking and lack of exercise, can be changed. Smoking High Cholesterol High Blood Pressure Family History Obesity Age Gender (Males are at higher risk) Lack of Exercise Diabetes Diet Stress Excessive Alcohol Intake If you or someone you know is experiencing the signs and symptoms of a heart attack, DON???T DELAY. Call immediately and seek help. If someone collapses, perform CPR! Do not attempt to drive if you are having symptoms of heart attack. Hands-Only CPR Why Hands-Only CPR? Hands-Only CPR has been shown to be as effective as conventional CPR for cardiac arrests that occur outside of a hospital. Survival depends on immediately receiving CPR from someone nearby. How do you perform Hands-Only CPR? There are two easy steps: Call if you see a teen or adult collapse Push hard and fast in the center of the chest at a beat of 100 beats per minute. Save a life! 4 WAYS TO GET AHEAD OF SEPSIS SEPSIS is a MEDICAL EMERGENCY. Time matters! Infections put you and your family at risk for a life-threatening condition called sepsis. Sepsis is the body's extreme response to an infection. It is life-threatening, and without timely treatment, sepsis can rapidly lead to tissue damage, organ failure, and . Sepsis happens when an infection you already have-in your skin, lungs, urinary tract or somewhere else-triggers a chain reaction throughout your body. 1 PREVENT INFECTIONS Take good care of chronic conditions. Talk to your doctor about getting the recommended vaccines. 2 PRACTICE GOOD HYGIENE Wash your hands frequently. Keep cuts or open sores clean and covered until they are healed. 3 KNOW THE SYMPTOMS Confusion or disorientation Shortness of breath High heart rate Fever, shivering, or feeling very cold Extreme pain or discomfort Clammy or sweaty skin 4 ACT FAST Get medical care IMMEDIATELY if you suspect sepsis or if you have an infection that is not getting better or is getting worse. To learn more about sepsis and how to prevent infections, visit www.cdc.gov/sepsis. Test Results Laboratory or Other Results This Visit (last charted value for your 12/19/2020 visit) Microbiology 12/17/2020 1:55 PM SARS-CoV-2 (COVID19 PCR): Negative General Chemistry 12/17/2020 10:59 AM Potassium Level: 3.8 mmol/L -- Normal range between ( 3.5 and 5.1 ) Patient Name:JANIS FIGUEREDO I have received this information and was given the opportunity to ask questions. Patient/Retail Assistant Store Manager Name: Patient/Retail Assistant Store Manager Signature: Relationship to Patient: Clinician/Hospital Retail Assistant Store Manager Signature: Date: Electronically signed by Everardo, [facility] Conversion Electronic Equipment Trades Worker Cerner at 08/22/2022 3:54 PM CDT documented in this encounter Plan of Treatment Not on file documented as of this encounter Visit Diagnoses Not on filedocumented in this encounter Care Teams Logistics And Planning Manager Relationship Specialty Start Date End Date Santosh Briones MD [address] [place], [place] [id number] PCP - General General Internal Medicine 04/18/22 04/22/22 Santosh Briones MD [address] [place], [place] [id number] PCP - General General Internal Medicine 04/23/22 Julius Cho MD [address] [place] [address] Referring Physician Internal Medicine 04/23/22 Lew Ross MD [address] [facility] [address] [place] [address] Cardiology 08/13/23 Karlos Islas PA-C [address] [facility] [address] [place] [address] Cardiology 11/23/23 documented as of this encounter
--- OUTSIDE RECORDS SUMMARY | 2024-10-21 09:22 | XMS_ITS | Referral Summary ---
Author Organization [employer] Address [address] [place] [address] Care Team Providers Care Inverform Machine Operator Name Role Phone Santosh Briones MD Primary Care Provider [phone] Julius Cho MD Unavailable Lew Ross MD Unavailable Karlos Islas PA-C Unavailable [phone] Allergies Active Allergy Reactions Criticality Noted Date Comments Morphine Other (See Comments) 04/21/2022 Sulfamethoxazole-Trimethoprim Nausea And Vomiting 04/21/2022 Medications furosemide (LASIX) 40 MG tablet Take 1 tablet (40 mg total) by mouth daily. Active cyanocobalamin (vitamin B-12) 1000 MCG tablet Take 1 tablet (1,000 mcg total) by mouth daily. Active folic acid (FOLVITE) 400 MCG tablet Take 2 tablets (800 mcg total) by mouth daily. Active pantoprazole (PROTONIX) 40 MG tablet Take 1 tablet (40 mg total) by mouth daily. 4 Active alendronate (FOSAMAX) 70 MG tablet Take 1 tablet (70 mg total) by mouth every 7 days Take in the morning with a full glass of water, on an empty stomach, and do not take anything else by mouth or lie down for the next 30 min.. Active apixaban (Eliquis) 5 mg Tab tablet Take 1 tablet (5 mg total) by mouth 2 (two) times daily. Active cholecalcifero l (VITAMIN D3) 125 mcg (5,000 unit) tablet Take 1 tablet (5,000 Units total) by mouth daily. Active atorvastatin (LIPITOR) 80 MG tablet Take 1 tablet (80mg total) by mouth every evening.. 90 tablet 3 4 Active semaglutide, weight loss, (Wegovy) 0.5 mg/0.5 mL PnIj Inject 0.5 mg subcutaneously once a week. 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 History of femur fracture 07/17/2022 Pain management 04/23/2022 Ankle joint replacement status, left 04/23/2022 Morbid obesity 04/23/2022 ADONIS (obstructive sleep apnea) by history 022 Immunizations Name Administration Dates Next Due Tdap 07/17/2022 Social History Tobacco Use Types Packs/Day Years Used Date Smoking Tobacco: Never Smokeless Tobacco: Never Tobacco Cessation:Counseling Given: Not Answered Alcohol Use Standard Drinks/Week Comments Not Currently 0 (1 standard drink = 0.6 oz pur e alcohol) PRAPARE - Transportation Answer Date Re corded In the past 12 months, has l ack of transportation kept you from medical appointments or from getting medications? No 07/21/2022 Lack of Transportation (Non-Medical) Not on file 07/21/2022 Housing Stability Vital Sign Answer Arturo e Recorded In the last 12 months, was t here a time when you were not able to pay the mortgage or rent on time? No 07/21/2022 In the last 12 months, how many places have you lived? 1 07/21/2022 In the last 12 months, was t here a time when you did not have a steady place to sleep or slept in a residential (including now)? No 07/21/2022 Utilities Answer Date Recorded In the past 12 months, has t he electric, gas, oil, or water company threatened to shut off services in your home? No 08/17/2023 Interpersonal Safety Answer Date Record ed How often does anyone, margaret garza family and friends, physically hurt you? Never 08/17/2023 How often does anyone, margaret garza family and friends, insult or talk down to you? Never 08/17/2023 How often does anyone, margaret garza family and friends, threaten you with harm? Never 08/17/2023 How often does anyone, margaret garza family and friends, scream or curse at you? Never 08/17/2023 Housing Stability Answer Date Recorded What is your living situation today? [facility] place to live 08/17/[address] you li ve. Do you have problems with any of the following? None of the above 08/17/2023 Food Insecurity Answer Date Recorded Within the past 12 months, y ou worried that your food would run out before you got money to buy more. Never true 08/17/2023 Within the past 12 months, t he food you bought just didn't last and you didn't have money to get more. Never true 08/17/2023 Transportation Needs Answer Date Record ed In the past 12 months, has l ack of reliable transportation kept you from medical appointments, meetings, work or from getting things needed for daily living? No 08/17/2023 Financial Resource Strain Answer Date R ecorded How hard is it for you to pa y for the very basics like food, housing, medical care, and heating? Would you say it is: Not hard at all 08/17/2023 Employment Answer Date Recorded Do you want help finding or keeping work or a job? I do not need or want help 08/17/2023 Family and Community Support Answer Arturo e Recorded If for any reason you need h elp with day-to-day activities such as bathing, preparing meals, shopping, managing finances, etc., do you get the help you need? I don't need any help 08/17/2023 Feeling Lonely or Isolated 0 08/16 Educational Attainment Answer Date Kirk rded Do you speak a language other than Georgian at [facility]? No 08/17/2023 Do you want help with school or training? For example, starting or completing job training or getting a high school diploma, GED or equivalent. No 08/17/2023 Physical Activity Answer Date Recorded Number of minutes of exercise per week 0 08/17/2023 Alcohol Use Answer Date Recorded 5 or More Drinks Per Day Past 12 Months 0 03/19/2024 Depression Answer Date Recorded Calculation of above two rows 0 Stress Answer Date Recorded Stress means a situation in which a person feels tense, restless, nervous, or anxious, or is unable to sleep at night because his or her mind is troubled all the time. Do you feel this kind of stress these days? Not at all 08/17/2023 Disabilities Answer Date Recorded Because of a physical, menta l, or emotional condition, do you have serious difficulty concentrating, remembering, or making decisions? (5 years or older) No 08/17/2023 Because of a physical, menta l, or emotional condition, do you have difficulty doing errands alone such as visiting a doctor's office or shopping? (15 years or older) No 08/17/2023 Substance Use Answer Date Recorded How many times in the past y ear have you used prescription drugs for non-medical reasons? Never 08/17/2023 How many times in the past year have you used il legal drugs? Never 08/17/2023 Comments Unknown Sex and Gender Information Value Date Recorded Sex Assigned at Female 03/19/2022 10:49 AM STRAIGHT KNIFE MACHINE CUTTER Legal Sex Female 5:46 PM CDT Gender Identity Female 03/19/2022 10:49 AM STRAIGHT KNIFE MACHINE CUTTER Sexual Orientation Not on file Last Filed Vital Signs Vital Sign Reading Time Taken Comments Blood Pressure 130/80 11/23/2023 10:11 AM EDT Pulse 64 11/23/2023 10:11 AM EDT Temperature 36.3 C (97.3 F) 08/25/2023 7:57 AM EDT Respiratory Rate 16 08/25/2023 7:57 AM EDT Oxygen Saturation 99% 08/25/2023 7:57 AM EDT Inhaled Oxygen Concentration - - Weight 126.6 kg (279 lb) 11/23/2023 10:11 AM EDT Height 170.2 cm (5' 7 ) 11/23/2023 10:11 AM EDT Body Mass Index 43.7 11/23/2023 10:11 AM EDT Plan of Treatment Not on file Medical Devices Implanted Type Area Band Bias Machine Operator Device Identifier Shelf Expiration Date Model / Serial / Lot Base Tib 18mm [id number] - [id number] Implanted:Qty : 1 on 04/23/2022 by Massimo Blake, DPM at [facility] IMPLANTS Left: Ankle ARIAS MED GRP:ARIAS MED TECH 03/13/[id number] / / [id number] Stem Mid Tib 16mm [id number] - [id number] Implanted:Qty : 2 on 04/23/2022 by Massimo Blake, DPM at [facility] IMPLANTS Left: Ankle ARIAS MED GRP:ARIAS MED TECH 03/10/[id number] / / [id number] Stem Top Tib 16mm [id number] - [id number] Implanted:Qty : 1 on 04/23/2022 by Massimo Blake, DPM at [facility] IMPLANTS Left: Ankle ARIAS MED GRP:ARIAS MED TECH 05/20/[id number] / / [id number] Cement Bone Smplx Tobra 40gm 6197-9-001 - [id number] Implanted:Qty : 3 on 04/23/2022 by Massimo Blake, DPM at [facility] IMPLANTS Left: Ankle GIUSEPPE:GIUSEPPE ORTHOPAEDICS 08/02/2023 6197-9-001 / / [id number] Tray Tib Sz4 L [id number] - [id number] Implanted:Qty : 1 on 04/23/2022 by Massimo Blake, DPM at [facility] IMPLANTS Left: Ankle ARIAS MED GRP:ARIAS MED TECH 02/20/[id number] / / [id number] Dome Inbone Talar Sulcus Sz 3 - - [id number] Implanted:Qty : 1 on 04/23/2022 by Massimo Blake, DPM at [facility] IMPLANTS Left: Ankle ARIAS MED GRP:ARIAS MED TECH 10/31/2028- / / [id number] Insrt Crosslnk Poly Sz3 [id number] - [id number] Implanted:Qty : 1 on 04/23/2022 by Massimo Blake, DPM at [facility] IMPLANTS Left: Ankle ARIAS MED GRP:ARIAS MED TECH 02/17/2030 [id number] / / [id number] Stem Talar 10mm [id number] - [id number] Implanted:Qty : 1 on 04/23/2022 by Massimo Blake DPM at [facility] IMPLANTS Left: Ankle ARIAS MED GRP:ARIAS MED TECH 02/16/[id number] / / [id number] Bone Putty Stimulan [facility] 620-005 - [id number] Implanted:Qty : 1 on 08/18/2023 by Massimo Blake DPM at [facility] IMPLANTS Left: Ankle BIOCOMPOSITES 03/03/2026 620-005 / / [id number] Insurance BLUE CROSS/BLUE SHIELD Advance Directives For more information, please contact: [phone] * Full Code (Latest Code Status on File) Date Activated Date Inactivated Comments 08/21/2023 8:47 AM 08/25/2023 2:40 PM * Full Code Date Activated Date Inactivated Comments 08/21/2023 8:47 AM 08/21/2023 8:47 AM * Full Code Date Activated Date Inactivated Comments 08/20/2023 6:02 PM 08/21/2023 8:47 AM * Full Code Date Activated Date Inactivated Comments 08/18/2023 5:58 PM 08/20/2023 6:02 PM * Full Code Date Activated Date Inactivated Comments 08/17/2023 5:35 PM 08/18/2023 5:58 PM Care Teams Inverform Machine Operator Relationship Specialty Start Date End Date Santosh Briones MD [address] [place], [place] [id number] PCP - General General Internal Medicine 04/23/22 Julius Cho MD [address] [place] [address] Referring Physician Internal Medicine 04/23/22 Lew Ross MD [address] [facility] [address] [place] [address] Cardiology 08/13/23 Karlos Islas PA-C [address] [facility] [place] [address] Cardiology 11/23/23
--- OUTSIDE RECORDS SUMMARY | 2024-10-21 09:22 | XMS_ITS | Encounter Summary ---
Author Organization [employer] Address [address] [place] [address] Care Team Providers Care Folder Operator Name Role Phone Santosh Briones MD Primary Care Provider [phone] Santosh Briones MD Primary Care Provider [phone] Julius Cho MD Unavailable Lew Ross MD Unavailable Karlos Islas PA-C Unavailable [phone] Encounter Details Date Type Department Care Team (Late st Contact Info) Description 08/02/2021 Transcribed Document [facility] [place] [facility] [place] [address] ProviderAle MD [address] [place] [address] Social History Tobacco Use Types Packs/Day Years Used Date Smoking Tobacco: Never Assessed Comments Unknown Sex and Gender Information Value Date Recorded Sex Assigned at Female 03/19/2022 10:49 AM VISUAL PRESENTATION MANAGER Legal Sex Female 5:46 PM CDT Gender Identity Female 03/19/2022 10:49 AM VISUAL PRESENTATION MANAGER Sexual Orientation Not on file documented as of this encounter Miscellaneous Notes * Cerner Conversion Note - Ale Johnson MD - 08/02/2021 9:51 AM CDT HISTORY AND PHYSICAL UPDATE Update Required: The appropriate section below MUST be completed prior to authentication. __x___UPDATE: The History and Physical performed by Dr Lew Ross on 90-79-25 has been reviewed, patient was examined, and no change has occurred since the History and Physical was completed. OR UPDATE: The History and Physical performed by on has been reviewed and patient examined. The only significant change(s) in the patient's history or condition since the History and Physical was completed are indicated below: Significant Changes: Electronically signed by Interface, [facility] Conversion Commercial Parts Professional Cerner at 08/22/2022 3:57 PM CDT documented in this encounter Plan of Treatment Not on file documented as of this encounter Visit Diagnoses Not on filedocumented in this encounter Care Teams Folder Operator Relationship Specialty Start Date End Date Santosh Briones MD [address] [facility] [place] [address] [place] [address] PCP - General General Internal Medicine 04/18/22 04/22/22 Santosh Briones MD [address] [place] [address] [place] [address] PCP - General General Internal Medicine 04/23/22 Julius Cho MD [address] [place] [address] Referring Physician Internal Medicine 04/23/22 Lew Ross MD [address] [facility] [address] [place] [address] Cardiology 08/13/23 Karlos Islas PA-C [address] [facility], [facility] [address] [place] [address] Cardiology 11/23/23 documented as of this encounter
--- OUTSIDE RECORDS SUMMARY | 2024-10-21 09:22 | XMS_ITS | Encounter Summary ---
Author Organization [employer] Address [address] [place] [address] Care Team Providers Care Veterinarian Small Animal Name Role Phone Santosh Santos MD Primary Care Provider [phone] Santosh Santos MD Primary Care Provider [phone] Julius Cho MD Unavailable Nader Wu MD Unavailable Karlos Islas PA-C Unavailable [phone] Encounter Details Date Type Department Care Team (Late st Contact Info) Description 07/24/2021 Transcribed Document [facility] [place] [address] ProviderAle MD [address] [place] [address] Social History Tobacco Use Types Packs/Day Years Used Date Smoking Tobacco: Never Assessed Comments Unknown Sex and Gender Information Value Date Recorded Sex Assigned at Female 03/19/2022 10:49 AM KIER PLEATER Legal Sex Female 5:46 PM CDT Gender Identity Female 03/19/2022 10:49 AM KIER PLEATER Sexual Orientation Not on file documented as of this encounter Miscellaneous Notes * Cerner Conversion Note - Ale ProviderMD - 07/24/2021 4:25 PM CDT [facility] [place] [address] JANIS FIGUEREDO :1965 Visit Time:07/24/2021 Your Visit Summary Your Care Team Admitting Physician - NADER WU MD-CAR Attending Physician - NADER WU MD-CAR Primary Care Physician - SANTOSH SANTOS (REF)MATTHEW Referring Physician - NADER WU MD-CAR Your Diagnosis Chronic venous hypertension (idiopathic) with inflammation of bilateral lower extremity, Chronic venous hypertension (idiopathic) with inflammation of bilateral lower extremity These Are Your Goals No qualifying data available. Discharge Vitals Temperature 36.5 ??C Heart Rate 53 Blood Pressure 125/68 What to do next Instructions From Your Care Team Diet after Discharge: Resume usual diet as tolerated Activity after Discharge: Rest and relax today, No strenuous activity, Driving Restrictions: No driving for 24 hours. Showering/Bathing: No showering for 24 hours., No tub bathing, soaking or swimming for 3-5 days until site is healed. Medications: No changes to your current home medications., Dressing Instructions: You can remove the leg wrap in [address] compression hose on immediately Wear compression stockings 24 hours a day for 14 days. Follow-Up Appointments Follow Up with Return to hospital When Within 1 day Where: Medications What How Much When Instructions Next Dose apixaban (Eliquis 5 mg oral tablet) 1 Tablet(s) Oral Two Times A Day atorvastatin (atorvastatin 40 mg oral tablet) 1 Tablet(s) Oral Every Day cyanocobalamin (Vitamin B12 1000 mcg oral tablet) 1 Tablet(s) Oral Every Day furosemide (furosemide 40 mg oral tablet) 1 Tablet(s) Oral Every Day gabapentin (gabapentin 300 mg oral capsule) 1 Capsule(s) Oral Three Times A Day lisinopril (lisinopril 20 mg oral tablet) 1 Tablet(s) Oral Every Day Non Formulary (Turmeric) 1,000 Milligram(s) Oral Every Day pantoprazole (pantoprazole 40 mg oral delayed release tablet) 1 Tablet(s) Oral Every Day Take your medications faithfully. Do NOT skip [...] Please dispose of unused and medications per your retail pharmacy guidance. Allergies Bactrim (Nausea & vomiting) morphine (Chest pain) Immunizations This Visit No Immunizations Found Education Materials How to Use Compression Stockings Compression stockings [...] your health care provider and follow the supervisor paint roller covers's instructions that come with the stockings. ??? [...] being washed. ??? Replace your stockings every 3???6 months. ??? If skin moisturizing is part [...] provider. Document Revised: 08/22/2020 Document Reviewed: 08/22/2020 [employer] Patient Education ?? 2020 [employer] Wound Infection A wound infection happens when [...] antibiotic medicine. ? The infection should improve 24???48 hours after you start antibiotics. ? After 24???48 hours, redness around the wound should stop spreading. The wound should also be less painful. Follow these instructions at home: Medicines ??? Take or apply tcnz-tng-bgjnvva and prescription medicines only as told by [...] cannot use soap and water, use hand program advisor. ? Change your bandage as told by [...] does not start to get better in 24???48 hours, or your symptoms get worse. ??? Keep all follow-up visits as told by your doctor. This is important. This information is not intended to replace advice given to you by your health care provider. Make sure you discuss any questions you have with your health care provider. Document Revised: 11/30/2018 Document Reviewed: 11/30/2018 [employer] Patient Education ?? 2020 [employer] Moderate Conscious Sedation, Adult, Care After This [...] eating solid foods. General instructions ??? Take qcxc-cfj-hoggeis and prescription medicines only as told by [...] provider. Document Revised: 08/17/2020 Document Reviewed: 03/15/2020 [employer] Patient Education ?? 2020 [employer] Emergency Awareness and Preventative Care STROKE is [...] Assistance with quitting is available by contacting 1-899-EOHLNOW. This is a free resource providing counseling, [...] This Visit (last charted value for your 07/24/2021 visit) Vascular Ultrasound 07/24/2021 2:06 PM VL Veins LE Duplex LTD LT: VL Veins LE Duplex LTD LT Patient Name:JANIS FIGUEREDO I have received and understand this information and was given the opportunity to ask questions. Patient/Forms Examiner Name: Patient/Forms Examiner Signature: Relationship to Patient: Clinician/Hospital Forms Examiner Signature: Date: Electronically signed by Everardo, [facility] Conversion Nuclear Reactor Operator Cerner at 08/22/2022 3:53 PM CDT documented in this encounter Plan of Treatment Not on file documented as of this encounter Visit Diagnoses Not on filedocumented in this encounter Care Teams Veterinarian Small Animal Relationship Specialty Start Date End Date Santosh Santos MD [address] [place], [place] [id number] PCP - General General Internal Medicine 04/18/22 04/22/22 Santosh Santos MD [address] [place], [place] [id number] PCP - General General Internal Medicine 04/23/22 Julius Cho MD [address] [place] [address] Referring Physician Internal Medicine 04/23/22 Nader Wu MD [address] [facility] [address] [place] [address] Cardiology 08/13/23 Karlos Islas PA-C [address] [place] [address], [facility] [address] [place] [address] Cardiology 11/23/23 documented as of this encounter
--- OUTSIDE RECORDS SUMMARY | 2024-10-21 09:22 | XMS_ITS | Encounter Summary ---
Author Organization [employer] Address [address] [place] [address] Care Team Providers Care Cementing Machine Operator Name Role Phone Santosh Briones MD Primary Care Provider [phone] Santosh Briones MD Primary Care Provider [phone] Julius Cho MD Unavailable Lew Ross MD Unavailable Karlos Islas PA-C Unavailable [phone] Encounter Details Date Type Department Care Team (Late st Contact Info) Description 07/19/2021 Transcribed Document [facility] [place] [facility] [place] [address] ProviderAle MD [address] [place] [address] Social History Tobacco Use Types Packs/Day Years Used Date Smoking Tobacco: Never Assessed Comments Unknown Sex and Gender Information Value Date Recorded Sex Assigned at Female 03/19/2022 10:49 AM LICENSED REACTOR OPERATOR Legal Sex Female 5:46 PM CDT Gender Identity Female 03/19/2022 10:49 AM LICENSED REACTOR OPERATOR Sexual Orientation Not on file documented as of this encounter Miscellaneous Notes * Cerner Conversion Note - Ale ProviderMD - 07/19/2021 6:45 AM CDT Pre Procedure Adult Entered On: 07/19/2021 6:49 EDT Performed On: 07/19/2021 6:45 EDT by FAISAL CISNEROS RN Height and Weight, Clinical Dosing Height Source : Stated Height Entry Format : [place] Height, Feet : 5 ft(Converted to: 152 cm, 60 Inch) Height, Inches : 7 Inch(Converted to: 0 ft 7 Inch, 17.78 cm) Clinical Height : 170.18 cm Weight Source : Standing scale Weight Entry Format : [place]ler Clinical Dosing Weight : 127.27 kg Weight, Pounds : 280 lb Body Surface Area (BSA) : 2.33 m2 Body Mass Index : 43.9 kg/m2 (>HHI) [place] Body Weight : 61 kg FAISAL CISNEROS RN - 07/19/2021 6:45 EDT Health Histories Smoking Status : Never (less than 100 in lifetime; none in last 30 days) Smokeless Tobacco Status : Never Implant/Device Type, Nut Sorter Operator and Model : breast implants IVC filter FAISAL CISNEROS RN - 07/19/2021 6:45 EDT Social History (As Of: 07/19/2021 06:49:21 EDT) Tobacco: Never (less than 100 in lifetime) Smoking Status. Never Smokeless Tobacco Status. None Smokeless Tobacco Use History. Second Hand Smoke Exposure: Yes. (Last Updated: 12/14/2020 10:54:16 EDT by Tru Barkley, Rn) Alcohol: Alcohol Use History Yes. Days/Week: 0.5. # Drinks/Day: 2. Total Drinks/Week: 1. Use in Last 12 Months: Yes. (Last Updated: 12/14/2020 10:54:16 EDT by Tru Barkley, Rn) Substance Abuse: Drug Use Hx: No. Use in Last 12 Months: No. (Last Updated: 12/14/2020 10:54:16 EDT by Tru Barkley, Rn) Infectious Disease History Does patient have symptoms of COVID-19? : No Has the Patient Been Tested for COVID-19 in the last 14 days? : PreProcedure/NON-PUI COVID-19 Testing Does the Patient state known exposure to a COVID-19 positive case in the last 14 days? : No Patient Vaccinated for COVID-19 : Fully vaccinated FAISAL CISNEROS RN - 07/19/2021 6:45 EDT Infectious Disease Risk Screening Grid Cough < 2 wks of unknown origin : NO Cough > 2 weeks : NO Blood in Sputum : NO Fever or self-reported Fever : NO Rash of unknown origin : NO Headache : NO Stiff neck : NO Night Sweats : NO Unexplained Weight Loss : NO Diarrhea (3 episode per day) : NO FAISAL CISNEROS RN - 07/19/2021 6:45 EDT Physical contact outside [place] in the last 30 days : No Hospitalized in Foreign Country : No Infectious Disease History : Chicken pox/Shingles, Influenza INF Disease TB Screening Calc : 0 INF Disease Recent Travel Calc : 0 FAISAL CISNEROS RN - 07/19/2021 6:45 EDT COVID19 PreProcedure Screening Is this an Emergent or Add on Procedure? : No Date PreProcedure COVID-19 test known? : No Has patient been isolated since the test : N/A - PreProcedure, in-person visit Exposed to COVID19 symptoms since test? : N/A - PreProcedure, in-person visit FAISAL CISNEROS RN - 07/19/2021 6:45 EDT Anesthesia/Transfusion History Family History of Anesthesia Reaction : No prior transfusion(s) Transfusion History : Prior anesthesia without reaction Family History of Anesthesia Reaction : None FAISAL CISNEROS RN - 07/19/2021 6:45 EDT Functional Assessment Living Situation : Home Patient Lives With : Spouse Current Home Treatments : None FAISAL CISNEROS RN - 07/19/2021 6:45 EDT [place] Suicide Severity Rating Scale (C-SSRS) CSSRS Past Month Wish to be : No CSSRS Past Month Suicidal Thoughts : No CSSRS Lifetime Suicide Behavior : No Suicide Severity Rating Score : 0 Suicide Severity Rating : No Additional Care Required at this time FAISAL CISNEROS RN - 07/19/2021 6:45 EDT Psychosocial History Currently in Unsafe Situation : No FAISAL CISNEROS RN - 07/19/2021 6:45 EDT Advance Directive Patient has Advance Directive *Q : No, patient refuses Advance Directive information FIASAL CISNEROS RN - 07/19/2021 6:45 EDT Teaching/Learning Assessment Barriers To Learning : None evident FAISAL CISNEROS RN - 07/19/2021 6:45 EDT Education Topics, Periop Preadmission Perioperative Education Grid Arrival Time/Place : Verbalizes understanding Falls : Verbalizes understanding Infection Control : Verbalizes understanding IV's : Verbalizes understanding NPO Status/Directions : Verbalizes understanding Pain Management : Verbalizes understanding Postoperative Care Preparations : Verbalizes understanding Preprocedure Preparations : Verbalizes understanding Preprocedure Tests/Labs : Verbalizes understanding Responsible Adult : Verbalizes understanding FAISAL CISNEROS RN - 07/19/2021 6:45 EDT General Info Support Person/Patient Laborer [place] : Yes Support Person/Pt Rep Name : Jose Ramon Lorenzana - Support Person/Pt Rep Contact Information : [phone] Want Family/Rep/Phys Notified of Admit : No Emergency Contact #1 : . Emergency Contact #1 Phone Number : . Emergency Contact #1 Relationship : . Emergency Contact #2 : . Emergency Contact #2 Phone Number : . Emergency Contact #2 Relationship : . Primary Language : Pry[place] Communication Barrier : None Rural Sociologist Needed : No FAISAL CISNEROS RN - 07/19/2021 6:45 EDT Sleep Apnea Risk Assmt Hx of Obstructive Sleep Apnea Diagnosis : No Snore Loudly : No Tired, Fatigued, or Sleepy During Day : No Observed Stopping Breathing During Sleep : No Have/Are Being Treated for Hypertension : Yes BMI Greater Than 35 kg/m2 : Yes Age over 50 Years Old : Yes Neck Circumference Greater Than 40 cm : No Gender Male : No STOP-BANG Sleep Apnea Risk Level Score : 3 FAISAL CISNEROS RN - 07/19/2021 6:45 EDT Ke Scale Ke Sensory Perception : No impairment Ke Moisture : Rarely moist Ke Activity : Walks frequently Ke Mobility : No limitation Ke Nutrition : Adequate Ke Friction and Shear : No apparent problem Ke Score : 22 FAISAL CISNEROS RN - 07/19/2021 6:45 EDT Fall Risk Scales ABCs Fall Injury Risk Identification : Coagulation ABC Fall Injury Risk : Moderate to high injury risk SANCHEZ Hx Falls Immediate/Within 3 Months : No Sanchez Secondary Diagnosis : Yes SANCHEZ Use of Ambulatory Aid : None SANCHEZ IV Therapy or IV Access : Yes Sanchez Gait/Transferring : Normal, bedrest, immobile Sanchez Mental Status : Oriented to own ability Sanchez Fall Risk Score : 35 SANCHEZ Fall Scale Risk Level : 25-45 Medium Risk [place] Fall Interventions : Adequate lighting, Assistive devices within reach, Bed in low position, Personal items within reach, Reinforced to call for assistance before getting out of bed, Room free of clutter/spills FAISAL CISNEROS RN - 07/19/2021 6:45 EDT Valuables and Belongings Valuables and Belongings : Clothing Clothing : Common streetwear Clothing Disposition : Bedside, With family, Declines to send to security/safe BLAYNEFAISAL VUONG RN - 07/19/2021 6:45 EDT Electronically signed by [facility], [facility] Conversion Mirror Specialist Cerner at 08/22/2022 3:45 PM CDT documented in this encounter Plan of Treatment Not on file documented as of this encounter Visit Diagnoses Not on filedocumented in this encounter Care Teams Cementing Machine Operator Relationship Specialty Start Date End Date Santosh Briones MD [address] [place], [place] [id number] PCP - General General Internal Medicine 04/18/22 04/22/22 Santosh Briones MD [address] [place], [place] [id number] PCP - General General Internal Medicine 04/23/22 Julius Cho MD [address] [place] [address] Referring Physician Internal Medicine 04/23/22 Lew Ross MD [address] [facility] [address] [place] [address] Cardiology 08/13/23 Karlos Islas PA-C [address] [facility] [address] [place] [address] Cardiology 11/23/23 documented as of this encounter
--- OUTSIDE RECORDS SUMMARY | 2024-10-21 09:22 | XMS_ITS | Encounter Summary ---
Author Organization [employer] Address [address] [place] [address] Care Team Providers Care Lockstitch Coat Joiner Name Role Phone Santosh Briones MD Primary Care Provider [phone] Santosh Briones MD Primary Care Provider [phone] Julius Cho MD Unavailable Lew Ross MD Unavailable Karlos Islas PA-C Unavailable [phone] Encounter Details Date Type Department Care Team (Late st Contact Info) Description 07/23/2021 Transcribed Document [facility] [place] [facility] [address] ProviderAle MD [address] [place] [address] Social History Tobacco Use Types Packs/Day Years Used Date Smoking Tobacco: Never Assessed Comments Unknown Sex and Gender Information Value Date Recorded Sex Assigned at Female 03/19/2022 10:49 AM PLASTIC MACHINE OPERATOR Legal Sex Female 5:46 PM CDT Gender Identity Female 03/19/2022 10:49 AM PLASTIC MACHINE OPERATOR Sexual Orientation Not on file documented as of this encounter Miscellaneous Notes * Cerner Conversion Note - Ale Johnson MD - 07/23/2021 3:24 PM CDT Patient Education Materials Follows:Disease Wound Infection A wound infection happens when [...] at home: Medicines ??? Take or apply wvcf-fac-fbnacla and prescription medicines only as told by [...] cannot use soap and water, use hand six sigma black trainer. ? Change your bandage as told by [...] provider. Document Revised: 11/30/2018 Document Reviewed: 11/30/2018 [employer] Patient Education ? 2020 [employer] Pharmacology Moderate Conscious Sedation, Adult, Care [...] eating solid foods. General instructions ??? Take inie-ahm-jsxzgmi and prescription medicines only as told by [...] provider. Document Revised: 08/17/2020 Document Reviewed: 03/15/2020 [employer] Patient Education ? 2020 [employer]. documented in this encounter Plan of Treatment Not on file documented as of this encounter Visit Diagnoses Not on filedocumented in this encounter Care Teams Lockstitch Coat Joiner Relationship Specialty Start Date End Date Santosh Briones MD [address] [facility] [address] [place], [place] [id number] PCP - General General Internal Medicine 04/18/22 04/22/22 Santosh Briones MD [address] [facility] [place] [address] PCP - General General Internal Medicine 04/23/22 Julius Cho MD [address] [place] [address] Referring Physician Internal Medicine 04/23/22 Lew Ross MD [address] [facility] [address] [place] [address] Cardiology 08/13/23 Karlos Islas PA-C [address] [facility] [address] [place] [address] Cardiology 11/23/23 documented as of this encounter
--- OUTSIDE RECORDS SUMMARY | 2024-10-21 09:22 | XMS_ITS | Encounter Summary ---
Author Organization [employer] Address [address] [place] [address] Care Team Providers Care Pediatric Registered Nurse Name Role Phone Santosh Briones MD Primary Care Provider [phone] Santosh Briones MD Primary Care Provider [phone] Julius Cho MD Unavailable Lew Ross MD Unavailable Karlos Islas PA-C Unavailable [phone] Encounter Details Date Type Department Care Team (Late st Contact Info) Description 07/23/2021 Transcribed Document [facility] [place] [facility] [place] [address] ProviderAle MD [address] [place] [address] Social History Tobacco Use Types Packs/Day Years Used Date Smoking Tobacco: Never Assessed Comments Unknown Sex and Gender Information Value Date Recorded Sex Assigned at Female 03/19/2022 10:49 AM NUCLEAR MEDICINE PHYSICIAN Legal Sex Female 5:46 PM CDT Gender Identity Female 03/19/2022 10:49 AM NUCLEAR MEDICINE PHYSICIAN Sexual Orientation Not on file documented as of this encounter Miscellaneous Notes * Cerner Conversion Note - Ale ProviderMD - 07/23/2021 12:30 PM CDT Patient: JANIS FIGUEREDO Age: 56 years Sex: Female : 1965 Associated Diagnoses: None Author: Yuli Mendez, RN-ROUNDING Basic Information PCP: Santosh Briones Histology Assistant: Dr. 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 gastric bypass 2003/revision 2011. She has complaints of BLE edema, and breaking open L>R. She has gained 23lbs over the past year. Review of Systems Constitutional: Negative except as documented in history of present illness. Eye: Negative except as documented in history of present illness. Ear/Nose/Mouth/Throat: Negative except as documented in history of present illness. Respiratory: Negative except as documented in history of present illness. Cardiovascular: Negative except as documented in history of present illness. Gastrointestinal: Negative except as documented in history of present illness. Genitourinary: Negative except as documented in history of present illness. Hematology/Lymphatics: Negative except as documented in history of present illness. Endocrine: Negative except as documented in history of present illness. Immunologic: Negative except as documented in history of present illness. Musculoskeletal: Negative except as documented in history of present illness. Integumentary: Negative except as documented in history of present illness. Neurologic: Negative except as documented in history of present illness. Psychiatric: Negative except as documented in history of present illness. Health Status Allergies (2) Active Reaction Bactrim Nausea & vomiting morphine Chest pain Home Medications (8) Active atorvastatin 40 mg oral tablet 40 mg = 1 Tab, Oral, Daily Eliquis 5 mg oral tablet 5 mg = 1 Tab, Oral, BID furosemide 40 mg oral tablet 40 mg = 1 Tab, Oral, Daily gabapentin 300 mg oral capsule 300 mg = 1 Cap, Oral, TID lisinopril 20 mg oral tablet 20 mg = 1 Tab, Oral, Daily pantoprazole 40 mg oral delayed release tablet 40 mg = 1 Tab, Oral, Daily Turmeric 1,000 mg, Oral, Daily Vitamin B12 1000 mcg oral tablet 1,000 mcg = 1 Tab, Oral, Daily Allergies: Allergic Reactions (Selected) Severity Not Documented Bactrim- Nausea & vomiting. Morphine- Chest pain., Allergies (2) Active Reaction Bactrim Nausea & vomiting morphine Chest pain Current medications: (Selected) Documented Medications Documented Eliquis 5 mg oral tablet: 1 Tab, Oral, BID, 60 Tab, 0 Refill(s) Turmeric: 1,000 mg, Oral, Daily, 0 Refill(s) Vitamin B12 1000 mcg oral tablet: 1 Tab, Oral, Daily, 30 Tab, 0 Refill(s) atorvastatin 40 mg oral tablet: 1 Tab, Oral, Daily, 0 Refill(s) furosemide 40 mg oral tablet: 1 Tab, Oral, Daily, 0 Refill(s) gabapentin 300 mg oral capsule: 1 Cap, Oral, TID, 60 Cap, 0 Refill(s) lisinopril 20 mg oral tablet: 1 Tab, Oral, Daily, 30 Tab, 0 Refill(s) pantoprazole 40 mg oral delayed release tablet: 1 Tab, Oral, Daily, 30 Tab, 0 Refill(s), No qualifying data available Problem list: All Problems High blood pressure / SNOMED CT 54905371 / Confirmed GERD - Gastro-esophageal reflux disease / SNOMED CT 5174141745 / Confirmed Renal calculus / SNOMED CT 682453509 / Confirmed Arthritis / SNOMED CT 4916081 / Confirmed Peripheral neuropathy / SNOMED CT 4952335174 / Confirmed Blood clot in vein / SNOMED CT 781459922 / Confirmed Heel spur / SNOMED CT 11187560 / Confirmed Achilles tendon injury / SNOMED CT 2008638660 / Confirmed Dependent lymphedema due to / SNOMED CT 0541951371 / Confirmed left lower leg since blood clot 1995 At risk for sleep apnea / IMO 87923495 / Confirmed, Active Problems (10) Achilles tendon injury Arthritis At risk for sleep apnea Blood clot in vein Dependent lymphedema due to GERD - Gastro-esophageal reflux disease Heel spur High blood pressure Peripheral neuropathy Renal calculus Histories No education data available. Social & Psychosocial Habits Alcohol 12/14/2020 Alcohol Use History, Social Habits Yes Days Per Week of Alcohol Use 0.5 Number of Drinks per Day 2 Total Drinks Per Week 1 Alcohol Use in Last Twelve Months Yes Substance Abuse 12/14/2020 Recreational Drug Use History No Recreational Drug Use Last 12 Months No Tobacco 12/14/2020 Smoking Status Never (less than 100 in l Smokeless Tobacco Status Never Smokeless Tobacco Use History None Second Hand Smoke Exposure Yes Past Medical History: No active or resolved past medical history items have been selected or recorded. Family History: No family history items have been selected or recorded. Procedure history: gastric bypass. gastric bypass revision. hernia repair x2. Cholecystectomy (17808067). breast augmentation. Social History Social & Psychosocial Habits Alcohol 12/14/2020 Alcohol Use History, Social Habits Yes Days Per Week of Alcohol Use 0.5 Number of Drinks per Day 2 Total Drinks Per Week 1 Alcohol Use in Last Twelve Months Yes Substance Abuse 12/14/2020 Recreational Drug Use History No Recreational Drug Use Last 12 Months No Tobacco 12/14/2020 Smoking Status Never (less than 100 in l Smokeless Tobacco Status Never Smokeless Tobacco Use History None Second Hand Smoke Exposure Yes . Physical Examination VS/Measurements Vitals Signs (last 24 hrs) Last Charted Minimum Maximum Temp 98.3 (JUL 23 12:48) 98.3 (JUL 23:48) 98.3 (JUL 23:48) SBP 123 (JUL 23 12:48) 123 (JUL 23 12:48) 123 (JUL 23:48) DBP L 55 (JUL 23:48) L 55 (JUL 23:48) L 55 (JUL 23:48) SpO2 97 (JUL 23 12:48) 97 (JUL 23 12:48) 97 (JUL 23 12:48) General: Alert and oriented, No acute distress. Eye: Pupils are equal, round and reactive to light, Normal conjunctiva. HENT: Normocephalic. Neck: Supple, No jugular venous distention. Respiratory: Lungs are clear to auscultation, Respirations are non-labored, Symmetrical chest wall expansion. Cardiovascular: Normal rate, Regular rhythm, No murmur, Good pulses equal in all extremities. Gastrointestinal: Soft, Non-distended, Normal bowel sounds. Musculoskeletal: Normal range of motion, Normal strength. Integumentary: Warm, Dry, [place]. Neurologic: Alert, Oriented. Psychiatric: Cooperative, Appropriate mood & affect. Review / Management Results review: No qualifying data available. Impression and Plan IMPRESSION: * Limiting symptomatic L>R LE Swelling due to a combination of obesity related to lymphedema/lipedema & L LE post thrombotic syndrome. * Remote hx. DVT/PE 1994 resulting in IVC Filter Placement * Hx. of Phlebitis/Cellulitis * Morbid Obesity gastric bypass 2003/revision 2011. Previously weighed >500lbs, 23 lb weight gain over the past year. * Stable CAD * HTN * HLD PLAN; RLE Varithena Electronically signed by Interface, [facility] Conversion Factory Clerk Cerner at 08/22/2022 3:47 PM CDT documented in this encounter Plan of Treatment Not on file documented as of this encounter Visit Diagnoses Not on filedocumented in this encounter Care Teams Pediatric Registered Nurse Relationship Specialty Start Date End Date Santosh Briones MD [address] [place], [place] [address] PCP - General General Internal Medicine 04/18/22 04/22/22 Santosh Briones MD [address] [place], [place] [id number] PCP - General General Internal Medicine 04/23/22 Julius Cho MD [address] [address] Referring Physician Internal Medicine 04/23/22 Lew Ross MD [address] [facility] [address] [place] [address] Cardiology 08/13/23 Karlos Islas PA-C [address] [facility], [facility] [address] [place] [address] Cardiology 11/23/23 documented as of this encounter
--- OUTSIDE RECORDS SUMMARY | 2024-10-21 09:22 | XMS_ITS | Clinical Summary ---
Author Organization [employer] Address [address] [place] [address] Care Team Providers Care Keycase Assembler Name Role Phone Santosh Briones MD Primary Care Provider [phone] Julius Cho MD Unavailable Lew Ross MD Unavailable Karlos Islas PA-C Unavailable [phone] Allergies Active Allergy Reactions Criticality Noted [...] Name Administration Dates Next Due Tdap 07/17/2022 Family History Medical History Relation Name Comments Clotting disorder Brother Torandall Jimenez Diabetes Brother Josue Jimenez Heart disease Brother Josue Jimenez Hypertension Brother Torandall Jimenez Diabetes Father Ho Jimenez Heart attack Father Ho Jimenez Heart disease Father Ho Jimenez Diabetes Mother Relation Name Status Comments Brother Torandall Jimenez Father Ho Jimenez Mother Social History Tobacco Use Types Packs/Day Years [...] place to sleep or slept in a intermediate (including now)? No 07/21/2022 Utilities Answer Date Recorded In the past 12 months, has t he electric, gas, oil, or water company threatened to shut off services in your home? No 08/17/2023 Interpersonal Safety Answer Date Record ed How often does anyone, margaert garza family and friends, physically hurt you? [...] your living situation today? I have a [facility] place to live 08/17/2023 Think about [...] Do you speak a language other than [place] at [place]? No 08/17/2023 Do you want help with [...] Sex Assigned at Female 03/19/2022 10:49 AM CDL BULK DRIVER Legal Sex Female 5:46 PM CDT Gender Identity Female 03/19/2022 10:49 AM CDL BULK DRIVER Sexual Orientation Not on file Last Filed [...] 11/23/2023 10:11 AM EDT Plan of Treatment Health Maintenance Due Date Last Done Comments CT Colonography 1965 Colonoscopy 1965 Colorectal Cancer Screening 1965 FOBT/FIT 1965 Fit-DNA (Cologuard) 1965 Sigmoidoscopy 1965 Depression Screening (12+) 1975 HIV Screening 1978 Hepatitis C Screening 1981 Pap Smear 1984 Breast Cancer Screening 2003 Lipid Panel 2008 Respiratory Syncytial Virus (RSV) Adult or (1 - Risk 60-74 years 1-dose series) 2023 Shingles Vaccine (Zoster) (2 of 2) 03/20/20232022 COVID-19 VACCINE (5 - 2023-2 5 season) 2024 10/29/2021, 02/01/2021, 05/23/2020, Additional history exists Tobacco Cessation Counseling and Screening (12+) 11/22/2024 11/23/2023 Influenza Vaccine (Season Ended) 2025 01/24/20 DTAP/TDAP/TD VACCINES (2 - T d or Tdap) 07/17/2032 07/17/2022 Pneumococcal 50+ years Completed 01/28/2024 Medical Devices Implanted Type Area Cash Person Device Identifier Shelf Expiration Date Model / Serial / Lot Base Tib 18mm [id number] - [id number] Implanted:Qty : 1 on 04/23/2022 by Massimo Blake DPM at [facility] IMPLANTS Left: Ankle ARIAS MED GRP:ARIAS MED TECH 03/13/[id number] / / [id number] Stem Mid Tib 16mm [id number] - [id number] Implanted:Qty : 2 on 04/23/2022 by Massimo Blake DPM at [facility] IMPLANTS Left: Ankle ARIAS MED GRP:ARIAS MED TECH 03/10/2030 / / [id number] Stem Top Tib 16mm [id number] - [id number] Implanted:Qty : 1 on 04/23/2022 by Massimo Blake, DPM at [facility] IMPLANTS Left: Ankle ARIAS MED GRP:ARIAS MED TECH 05/20/[id number] / / [id number] Cement Bone Smplx Tobra 40gm 6197-9-001 - [id number] Implanted:Qty : 3 on 04/23/2022 by Massimo Blake, DPM at [facility] IMPLANTS Left: Ankle GIUSEPPE:GIUSEPPE ORTHOPAEDICS 08/02/2023 6197-9-001 / / [id number] Tray Tib Sz4 L [id number] - [id number] Implanted:Qty : 1 on 04/23/2022 by Massimo Blake, DPM at [facility] IMPLANTS Left: Ankle ARIAS MED GRP:ARIAS MED TECH 02/20/[id number] / / [id number] Dome Inbone Talar Sulcus Sz 3 - [id number] Implanted:Qty : 1 on 04/23/2022 by Massimo Blake, DPM at [facility] IMPLANTS Left: Ankle ARIAS MED GRP:ARIAS MED TECH 10/31/20283 / / [id number] Insrt Crosslnk Poly Sz3 [id number] - [id number] Implanted:Qty : 1 on 04/23/2022 by Massimo Blake, DPM at [facility] IMPLANTS Left: Ankle ARIAS MED GRP:ARIAS MED TECH 02/17/[id number] / / [id number] Stem Talar 10mm [id number] - [id number] Implanted:Qty : 1 on 04/23/2022 by Massimo Blake, DPM at [facility] IMPLANTS Left: Ankle ARIAS MED GRP:ARIAS MED TECH 02/16/[id number] / / [id number] Bone Putty Stimulan 5cc 620-005 - [id number] Implanted:Qty : 1 on 08/18/2023 by Massimo Blake, DPM at [facility] IMPLANTS Left: Ankle BIOCOMPOSITES 03/03/2026 620-005 / / [id number] Insurance BLUE CROSS/BLUE SHIELD Advance Directives For more information, please contact: [phone] * Full Code (Latest Code Status on [...] 5:35 PM 08/18/2023 5:58 PM Care Teams Keycase Assembler Relationship Specialty Start Date End Date Santosh Briones MD [address] [place] [address] [place] [address] PCP - General General Internal Medicine 04/23/22 Julius Cho MD [address] [place] [address] Referring Physician Internal Medicine 04/23/22 Lew Ross MD [address] [place] [address] [address] Cardiology 08/13/23 Karlos Islas PA-C [address] [facility], [facility] [address] [place] [address] Cardiology 11/23/23
--- OUTSIDE RECORDS SUMMARY | 2024-10-21 09:22 | XMS_ITS | Encounter Summary ---
Author Organization [employer] [facility] [employer] Address [address] [place] [address] Care Team Providers Care Bag Machine Adjuster Name Role Phone Santosh Briones MD Primary Care Provider [phone] Santosh Briones MD Primary Care Provider [phone] Julius Cho MD Unavailable Lew Ross MD Unavailable Karlos Islas PA-C Unavailable [phone] Encounter Details Date Type Department Care Team (Late st Contact Info) Description 07/19/2021 Transcribed Document [facility] [place] [facility] [place] [address] ProviderAle MD [address] [place] [address] Social History Tobacco Use Types Packs/Day Years Used Date Smoking Tobacco: Never Assessed Comments Unknown Sex and Gender Information Value Date Recorded Sex Assigned at Female 03/19/2022 10:49 AM RESEARCH AND DEVELOPMENT RESEARCHER Legal Sex Female 5:46 PM CDT Gender Identity Female 03/19/2022 10:49 AM RESEARCH AND DEVELOPMENT RESEARCHER Sexual Orientation Not on file documented as of this encounter Miscellaneous Notes * Cerner Conversion Note - Ale Johnson MD - 07/19/2021 9:30 AM CDT Patient Education Materials Follows:Disease Wound Infection [...] at home: Medicines ??? Take or apply uhyy-zbu-etkrprc and prescription medicines only as told by [...] cannot use soap and water, use hand healthcare corporate account director. ? Change your bandage as told by [...] provider. Document Revised: 11/30/2018 Document Reviewed: 11/30/2018 [employer] Patient Education ? 2020 [employer] Pharmacology Moderate Conscious Sedation, Adult, Care [...] eating solid foods. General instructions ??? Take slys-qhq-ubiczwb and prescription medicines only as told by [...] provider. Document Revised: 08/17/2020 Document Reviewed: 03/15/2020 [employer] Patient Education ? 2020 [employer]. documented in this encounter Plan of Treatment Not on file documented as of this encounter Visit Diagnoses Not on filedocumented in this encounter Care Teams Bag Machine Adjuster Relationship Specialty Start Date End Date Santosh Briones MD [address] [facility] [address] [place], [place] [id number] PCP - General General Internal Medicine 04/18/22 04/22/22 Santosh Briones MD [address] [facility] [place] [address] [place] [address] PCP - General General Internal Medicine 04/23/22 Julius Cho MD [address] [place] [address] Referring Physician Internal Medicine 04/23/22 Lew Ross MD [address] [facility] [address] [place] [address] Cardiology 08/13/23 Karlos Islas PA-C [address] [facility], [facility] [address] [place] [address] Cardiology 11/23/23 documented as of this encounter
--- OUTSIDE RECORDS SUMMARY | 2024-10-21 09:22 | XMS_ITS | Encounter Summary ---
Author Organization [facility] [employer] [facility] [employer] Address [address] [place] [address] Care Team Providers Care Superannuation Funds Manager Name Role Phone Santosh Santos MD Primary Care Provider [phone] Santosh Santos MD Primary Care Provider [phone] Julius Cho MD Unavailable Nader Wu MD Unavailable Karlos Islas PA-C Unavailable [phone] Encounter Details Date Type Department Care Team (Late st Contact Info) Description 07/25/2021 Transcribed Document [facility] Family Medicine [facility] [place] [address] ProviderAle MD [address] [place] [address] Social History Tobacco Use Types Packs/Day Years Used Date Smoking Tobacco: Never Assessed Comments Unknown Sex and Gender Information Value Date Recorded Sex Assigned at Female 03/19/2022 10:49 AM LUMP ROLLER Legal Sex Female 5:46 PM CDT Gender Identity Female 03/19/2022 10:49 AM LUMP ROLLER Sexual Orientation Not on file documented as of this encounter Miscellaneous Notes * Cerner Conversion Note - Ale ProviderMD - 07/25/2021 4:01 PM CDT [facility] [place] [address] JANIS FIGUEREDO :1965 Visit Time:07/25/2021 Your Visit Summary Your Care Team Admitting Physician - NADER WU MD-CAR Attending Physician - NADER WU MD-CAR Primary Care Physician - SANTOSH SANTOS (REF)MATTHEW Referring Physician - NADER WU MD-CAR Your Diagnosis Varicose veins of left lower extremity with inflammation, Varicose veins of left lower extremity with inflammation Varicose veins of right lower extremity with inflammation These Are Your Goals No qualifying data available. Discharge Vitals Heart Rate (Monitored) 52 Blood Pressure 154/70 What to do next Instructions From Your Care Team Diet after Discharge: Resume usual diet as tolerated Activity after Discharge: Rest and relax today, No strenuous activity, _, _ Driving Restrictions: No driving for 24 hours. Showering/Bathing: Keep bandages clean and dry for 48 hours Medications: No changes to your current home medications., _, _ Dressing Instructions: Do not remove the bandages and compression stocking applied by your doctor. Remove post-treatment bandages after 48 hours, but continue to wear compression stocking. Follow-Up Appointments Follow Up with NADRE WU MD-CAR When Comments Follow-up as instructed Where: [address] [place] [address] [place] [address]- Medications What How Much When Instructions Next [...] This Visit No Immunizations Found Education Materials Endovenous Ablation, Care After This sheet gives you information about how to care for yourself after your procedure. Your health care provider may also give you more specific instructions. If you have problems or questions, contact your health care provider. What can I expect after the procedure? After the procedure, it is common to have: ??? Bruising. ??? Tenderness. Follow these instructions at home: Incision care ??? Follow instructions from your health care provider about how to take care of your incision. Make sure you: ? Wash your hands with soap and water before and after you change your bandage (dressing). If soap and water are not available, use hand recreation aide. ? Change your dressing as told by your health care provider. ? Follow instructions from your health care provider about when you should remove your dressing. ??? Check your incision area every day for signs of infection. Check for: ? Redness, swelling, or pain. ? Fluid or blood. ? Warmth. ? Pus or a bad smell. ??? Keep the dressing dry until your health care provider says it can be removed. Activity ??? Avoid sitting for a long time without moving. Get up to take short walks every 1???2 hours. This is important to improve blood flow. Ask for help if you feel weak or unsteady. ??? Rest as told by your health care provider. General instructions ??? Take azoh-wmc-plkjhlv and prescription medicines only as told by your health care provider. ??? Do not drive for 24 hours if you were given a sedative during your procedure. ??? Do not take long car trips or travel by air until your health care provider has approved. ??? Wear compression stockings as told by your health care provider. These stockings help to prevent blood clots and reduce swelling in your legs. ??? Do not use any products that contain nicotine or tobacco, such as cigarettes, e-cigarettes, and chewing tobacco. These can delay incision healing after the procedure. If you need help quitting, ask your health care provider. ??? Keep all follow-up visits as told by your health care provider. This is important. Contact a health care provider if you have: ??? A fever. ??? Redness, swelling, or pain at the site of your incision. ??? Fluid or blood coming from your incision. ??? Warmth at the incision area. ??? Pus or a bad smell coming from your incision. Get help right away if you: ??? Notice red streaks coming from the incision. ??? Develop nausea or vomiting. ??? Have trouble breathing. ??? Develop chest pain. Summary ??? Follow instructions from your health care provider about how to take care of your incision. ??? Avoid sitting for a long time without moving. Get up to take short walks every 1???2 hours. ??? Wear compression stockings as told by your health care provider. These stockings help to prevent blood clots and reduce swelling in your legs. ??? Contact a health care provider if you have redness, swelling, or pain at the site of your incision. ??? Keep all follow-up visits as told by your health care provider. This is important. This information is not intended to replace advice given to you by your health care provider. Make sure you discuss any questions you have with your health care provider. Document Revised: 12/29/2018 Document Reviewed: 12/29/2018 Elsevier Patient Education ?? 2020 [email or web address] Moderate Conscious Sedation, Adult, Care After [...] eating solid foods. General instructions ??? Take jqii-xgt-xynwgdn and prescription medicines only as told by [...] provider. Document Revised: 08/17/2020 Document Reviewed: 03/15/2020 [email or web address] Patient Education ?? 2020 [employer]. Emergency Awareness and Preventative Care STROKE is [...] Assistance with quitting is available by contacting 8-770-CHLI-NOW. This is a free resource providing counseling, [...] This Visit (last charted value for your 07/25/2021 visit) No Laboratory or Other Results This Visit Patient Name:JANIS FIGUEREDO I have received and understand this information and was given the opportunity to ask questions. Patient/Television Mechanic Name: Patient/Television Mechanic Signature: Relationship to Patient: Clinician/Hospital Television Mechanic Signature: Date: documented in this encounter Plan of Treatment Not on file documented as of this encounter Visit Diagnoses Not on filedocumented in this encounter Care Teams Superannuation Funds Manager Relationship Specialty Start Date End Date Santosh Santos MD [address] [place] [address] [place] [address] PCP - General General Internal Medicine 04/18/22 04/22/22 Santosh Santos MD [address] [place] [address] [place] [address] PCP - General General Internal Medicine 04/23/22 Julius Cho MD [address] [place] [address] Referring Physician Internal Medicine 04/23/22 Nader Wu MD [address] [facility] [address] [place] [address] Cardiology 08/13/23 Karlos Islas PA-C [address] [place] [address] Cardiology 11/23/23 documented as of this encounter
--- OUTSIDE RECORDS SUMMARY | 2024-10-21 09:22 | XMS_ITS | Encounter Summary ---
Author Organization [employer] [facility] [employer] Address [address] [place] [address] Care Team Providers Care Veterinary Milk Specialist Name Role Phone Santosh Briones MD Primary Care Provider [phone] Santosh Briones MD Primary Care Provider [phone] Julius Cho MD Unavailable Lew Ross MD Unavailable Karlos Islas PA-C Unavailable [phone] Encounter Details Date Type Department Care Team (Late st Contact Info) Description 12/19/2020 Transcribed Document [facility] Family Medicine [facility] [place] [address] ProviderAle MD [address] [place] [address] Social History Tobacco Use Types Packs/Day Years Used Date Smoking Tobacco: Never Assessed Comments Unknown Sex and Gender Information Value Date Recorded Sex Assigned at Female 03/19/2022 10:49 AM UTILITY APPRAISER Legal Sex Female 5:46 PM CDT Gender Identity Female 03/19/2022 10:49 AM UTILITY APPRAISER Sexual Orientation Not on file documented as of this encounter Miscellaneous Notes * Cerner Conversion Note - Ale ProviderMD - 12/19/2020 7:30 AM CDT [facility] Main OR Preop Summary Primary Physician: MEE TUCKER, DPM-POD Finalized Date/Time: 12/19/20 07:52:13 Pt. Name: JANIS FIGUEREDO./Sex: 1965 Female Med Rec #: [id number] Physician: MEE TUCKER, DPM-POD Financial #: [id number] Pt. Type: O Room/Bed: Admit/Disch: 12/19/20 06:32:00 - Institution: [facility] PreOp Case Times Entry 1 In Preop 12/19/20 05:50:00 Ready for Holding n/a Room Patient Ready for 12/19/20 07:48:00 Surgery Patient Out of Preop 12/19/20 07:52:00 Patient Out of n/a Holding Room Last Modified By: Pérez Gil Rn 12/19/20 07:52:11 [facility] PreOp Case Times Audit 12/19/20 07:52:11 Network Specialist: [id number] Modifier: [id number] <+> 1 Patient Out of Preop <+> 1 Patient Ready for Surgery Finalized By: Pérez Gil Rn Document Signatures Signed By: Pérez Gil Rn 12/19/20 07:52 Electronically signed by Everardo [facility] Conversion Skin Lifter Bacon Cerner at 08/22/2022 3:49 PM CDT documented in this encounter Plan of Treatment Not on file documented as of this encounter Visit Diagnoses Not on filedocumented in this encounter Care Teams Veterinary Milk Specialist Relationship Specialty Start Date End Date Santosh Briones MD [address] [facility] [place] [address] [place] [address] PCP - General General Internal Medicine 04/18/22 04/22/22 Santosh Briones MD [address] [facility] [address] [place], [place] [id number] PCP - General General Internal Medicine 04/23/22 Julius Cho MD [address] [place] [address] Referring Physician Internal Medicine 04/23/22 Lew Ross MD [facility] [address] [place] [address] Cardiology 08/13/23 Karlos Islas PA-C [address] [facility] [address] [place] [address] Cardiology 11/23/23 documented as of this encounter
--- OUTSIDE RECORDS SUMMARY | 2024-10-21 09:22 | XMS_ITS | Encounter Summary ---
Author Organization [employer] [facility] [employer] Address [address] [place] [address] Care Team Providers Care Animal Feeder Name Role Phone Santosh Briones MD Primary Care Provider [phone] Santosh Briones MD Primary Care Provider [phone] Julius Cho MD Unavailable Lew Ross MD Unavailable Karlos Islas PA-C Unavailable [phone] Encounter Details Date Type Department Care Team (Late st Contact Info) Description 07/23/2021 Transcribed Document [facility] [place] Family Medicine [facility] [place] [address] ProviderAle MD [address] [place] [address] Social History Tobacco Use Types Packs/Day Years Used Date Smoking Tobacco: Never Assessed Comments Unknown Sex and Gender Information Value Date Recorded Sex Assigned at Female 03/19/2022 10:49 AM INTERNATIONAL COORDINATOR Legal Sex Female 5:46 PM CDT Gender Identity Female 03/19/2022 10:49 AM INTERNATIONAL COORDINATOR Sexual Orientation Not on file documented as of this encounter Miscellaneous Notes * Cerner Conversion Note - Ale Johnson MD - 07/23/2021 3:12 PM CDT Nursing Discharge Summary Entered On: 07/23/2021 15:12 EDT Performed On: 07/23/2021 15:12 EDT by Lisa Prado, plant operations manager Documentation Discharge Date/Time : 07/23/2021 16:00 EDT Lisa Prado RN - 07/23/2021 16:20 EDT Patient Disposition, General : Discharge Discharge To : Home with ambulatory/outpatient follow-up Mode Of Departure, General Discharge : Private vehicle Accompanied By, Discharge : Mother IV Discontinued : Yes Personal Belongings With Patient : Yes Discharge Instructions Reviewed With, Opportunity For Questions Given : Patient, Mother Patient Education Completed : Yes Teaching Method : Explanation, Printed materials Teaching Evaluation : Returns demonstration, Verbalizes understanding Lisa Prado RN - 07/23/2021 15:12 EDT Electronically signed by [facility] Conversion Bilingual Administrative Assistant Cerner at 08/22/2022 3:53 PM CDT documented in this encounter Plan of Treatment Not on file documented as of this encounter Visit Diagnoses Not on filedocumented in this encounter Care Teams Animal Feeder Relationship Specialty Start Date End Date Santosh Briones MD [address] [facility] [address] [place], [place] [id number] PCP - General General Internal Medicine 04/18/22 04/22/22 Santosh Briones MD [address] [facility] [address] [place], [place] [id number] PCP - General General Internal Medicine 04/23/22 Julius Cho MD [address] [place] [address] Referring Physician Internal Medicine 04/23/22 Lew Ross MD [address] [facility] [address] [place] [address] Cardiology 08/13/23 Karlos Islas PA-C [address] [place] [address] Cardiology 11/23/23 documented as of this encounter
--- OUTSIDE RECORDS SUMMARY | 2024-10-21 09:22 | XMS_ITS | Encounter Summary ---
Author Organization [employer] Address [address] [place] [address] Care Team Providers Care Sales Representative Groceries Name Role Phone Santosh Briones MD Primary Care Provider [phone] Santosh Briones MD Primary Care Provider [phone] Julius Cho MD Unavailable Lew Ross MD Unavailable Karlos Islas PA-C Unavailable [phone] Encounter Details Date Type Department Care Team (Late st Contact Info) Description 07/24/2021 Transcribed Document [facility] Family Medicine [facility] [address] ProviderAle MD [address] [place] [address] Social History Tobacco Use Types Packs/Day Years Used Date Smoking Tobacco: Never Assessed Comments Unknown Sex and Gender Information Value Date Recorded Sex Assigned at Female 03/19/2022 10:49 AM SHOE CLERK Legal Sex Female 5:46 PM CDT Gender Identity Female 03/19/2022 10:49 AM SHOE CLERK Sexual Orientation Not on file documented as of this encounter Miscellaneous Notes * Cerner Conversion Note - Ale Johnson MD - 07/24/2021 1:18 PM CDT Nursing Discharge Summary Entered On: 07/24/2021 13:18 EDT Performed On: 07/24/2021 13:[address] RN Discharge Documentation Patient Disposition, General : Discharge Discharge To : Home with ambulatory/outpatient follow-up Mode Of Departure, General Discharge : Private vehicle Accompanied By, Discharge : Sibling IV Discontinued : Yes Personal Belongings With Patient : Yes Pt's Own Supply of Medications Returned : No patient supply of medications to return Prescriptions Given to Patient : No Medications Given to Patient : No Discharge Instructions Reviewed With, Opportunity For Questions Given : Patient, Sibling Patient Education Completed : Yes Teaching Method : Explanation Teaching Evaluation : Returns demonstration, Verbalizes understanding OUSMANE LANE RN - 07/24/2021 13:18 EDT Electronically signed by Everardo [facility] Conversion Off Track Betting Manager Cerner at 08/22/2022 3:57 PM CDT documented in this encounter Plan of Treatment Not on file documented as of this encounter Visit Diagnoses Not on filedocumented in this encounter Care Teams Sales Representative Groceries Relationship Specialty Start Date End Date Santosh Briones MD [address] [facility] [address] [place], [place] [id number] PCP - General General Internal Medicine 04/18/22 04/22/22 Santosh Briones MD [address] [facility] [address] [place], [place] [id number] PCP - General General Internal Medicine 04/23/22 Julius Cho MD [address] [place] [address] Referring Physician Internal Medicine 04/23/22 Lew Ross MD [address] [facility] [address] [place] [address] Cardiology 08/13/23 Karlos Islas PA-C [address] [facility] [place] [address] Cardiology 11/23/23 documented as of this encounter
--- OUTSIDE RECORDS SUMMARY | 2024-10-21 09:22 | XMS_ITS | Encounter Summary ---
Author Organization [employer] Address [address] [place] [address] Care Team Providers Care Delivery Manager Name Role Phone Santosh Briones MD Primary Care Provider [phone] Santosh Briones MD Primary Care Provider [phone] Julius Cho MD Unavailable Lew Ross MD Unavailable Karlos Islas PA-C Unavailable [phone] Encounter Details Date Type Department Care Team (Late st Contact Info) Description 12/19/2020 Transcribed Document [facility] [facility] [place] [facility] [place] [address] ProviderAle MD [address] [place] [address] Social History Tobacco Use Types Packs/Day Years Used Date Smoking Tobacco: Never Assessed Comments Unknown Sex and Gender Information Value Date Recorded Sex Assigned at Female 03/19/2022 10:49 AM PARTS DESIGNER Legal Sex Female 5:46 PM CDT Gender Identity Female 03/19/2022 10:49 AM PARTS DESIGNER Sexual Orientation Not on file documented as of this encounter Miscellaneous Notes * Cerner Conversion Note - Ale Johnson MD - 12/19/2020 8:35 AM CDT [facility] Main OR IntraOp Summary Primary Physician: MEE TUCKER, DPM-POD Finalized Date/Time: 12/21/20 10:05:58 Pt. Name: JANIS FIGUEREDO./Sex: 1965 Female [facility] Rec #: [id number] Physician: MEE TUCKER, DPM-POD Financial #: [id number] Pt. Type: O Room/Bed: /9 Admit/Disch: 12/19/20 06:32:00 - 12/19/20 12:11:00 Institution: [facility] IntraOp Case Attendance Entry 1 Entry 2 Entry 3 Case Attendee MEE TUCKER BOWEN, JON B, MD-YVETTE ROSEN APRN DPM-POD Role Performed Surgeon/Proceduralist, Anesthesiologist of MANUFACTURING PLANT TECHNICIAN/Nurse Mold Dresser First Record Time In 12/19/20 07:55:00 12/19/20 07:55:00 12/19/20 07:55:00 Time Out 12/19/20 10:23:00 12/19/20 10:23:00 12/19/20 10:23:00 Procedure Achilles Tendon Achilles Tendon Achilles Tendon Repair(Right), Bone Repair(Right), Bone Repair(Right), Bone Spur Excision Spur Excision Spur Excision Other Attendee Superficial Wound Closed By: Last Modified By: Julienne Atkins Rn Compton, Tracy R, Rn Compton, Tracy R, Rn 12/19/20 10:28:51 12/19/20 10:28:51 12/19/20 10:28:51 Entry 4 Entry 5 Entry 6 Case Attendee Julienne Atkins Rn Poe, Kali, Letitia Reese, Tree Faller Role Performed Manager Proposal, First Manager Proposal, Second Scrub, First Time In 12/19/20 07:55:00 12/19/20 07:55:00 12/19/20 07:55:00 Time Out 12/19/20 10:23:00 12/19/20 10:23:00 12/19/20 10:23:00 Procedure Achilles Tendon Achilles Tendon Achilles Tendon Repair(Right), Bone Repair(Right), Bone Repair(Right), Bone Spur Excision Spur Excision Spur Excision Other Attendee Superficial Wound Closed By: Last Modified By: Julienne Atkins Rn Compton, Tracy R, Rn Compton, Tracy R, Rn 12/19/20 10:28:51 12/19/20 10:28:51 12/19/20 10:28:51 Entry 7 Case Attendee ROBERTO BELCHER RN Role Performed Manager Proposal, First Time In 12/19/20 09:45:00 Time Out 12/19/20 10:03:00 Procedure Achilles Tendon Repair(Right), Bone Spur Excision Other Attendee BREAK Superficial Wound Closed By: Last Modified By: Julienne Atkins Rn 12/19/20 10:28:51 [facility] IntraOp Case Attendance Audit 12/19/20 10:28:51 Cosmetics Counter Manager: [id number] Modifier: [id number] <+> Time Out 1 <*> Procedure Achilles Tendon Repair(Right), Bone Spur Excision 2 <+> Time Out 2 <*> Procedure Achilles Tendon Repair(Right), Bone Spur Excision 3 <+> Time Out 3 <*> Procedure Achilles Tendon Repair(Right), Bone Spur Excision 4 <+> Time Out 4 <*> Procedure Achilles Tendon Repair(Right), Bone Spur Excision 5 <+> Time Out 5 <*> Procedure Achilles Tendon Repair(Right), Bone Spur Excision 6 <+> Time Out 6 <*> Procedure Achilles Tendon Repair(Right), Bone Spur Excision 7 <*> Procedure Achilles Tendon Repair(Right), Bone Spur Excision 12/19/20 10:03:51 Cosmetics Counter Manager: [id number] Modifier: [id number] <+> Time Out 7 <*> Procedure Achilles Tendon Repair(Right), Bone Spur Excision 12/19/20 09:47:32 Cosmetics Counter Manager: [id number] Modifier: [id number] <*> Procedure Achilles Tendon Repair(Right), Bone Spur Excision 2 <+> Time In 2 <*> Procedure Achilles Tendon Repair(Right), Bone Spur Excision 3 <+> Time In 3 <*> Procedure Achilles Tendon Repair(Right), Bone Spur Excision 4 <+> Time In 4 <*> Procedure Achilles Tendon Repair(Right), Bone Spur Excision 5 <+> Time In 5 <*> Procedure Achilles Tendon Repair(Right), Bone Spur Excision 6 <+> Time In 6 <*> Procedure Achilles Tendon Repair(Right), Bone Spur Excision <+> 7 Case Attendee <+> 7 Role Performed <+> 7 Time In <+> 7 Procedure <+> 7 Other Attendee 12/19/20 07:58:46 Cosmetics Counter Manager: [id number] Modifier: [id number] <+> 6 Procedure [facility] IntraOp Case Times Entry 1 Patient In Room Time 12/19/20 07:55:00 Out Room Time 12/19/20 10:23:00 Anesthesia Start Time 12/19/20 07:55:00 Stop Time 12/19/20 10:23:00 Surgery / Procedure Times Start Time 12/19/20 08:35:00 Stop Time 12/19/20 10:16:00 Last Modified By: Julienne Atkins Rn 12/19/20 10:28:41 [facility] IntraOp Case Times Audit 12/19/20 10:28:41 Cosmetics Counter Manager: [id number] Modifier: [id number] <+> 1 Out Room Time <+> 1 Stop Time <+> 1 Stop Time 12/19/20 08:37:30 Cosmetics Counter Manager: [id number] Modifier: [id number] <+> 1 Start Time [facility] IntraOp Cautery Entry 1 ESU Identification Cautery Type Monopolar ESU ID Number [id number] ID Type Hospital Number Cautery Settings Cut Setting 30 Coag Setting 30 ESU Grounding Pad Ground Pad Type Adult Grounding Pad Site Left thigh Grounding Pad Julienne Atkins Rn Applied By Grounding Pad Site Warm, Dry, Intact Skin Condition Before Cautery Site Skin Condition WDL Before Comment Grounding Pad Site Unchanged Skin Condition After Cautery Site Skin Condition WDL After Comment Last Modified By: Julienne Atkins Rn 12/19/20 07:59:56 [facility] IntraOp Communication Entry 1 Communication To Family/Significant other Communication By Domingo Conklin RN Date and Time 12/19/20 08:37:00 Last Modified By: Julienne Atkins Rn 12/19/20 08:37:40 [facility] IntraOp Counts Verification Entry 1 Procedure Achilles Tendon Repair(Right), Bone Spur Excision Count Info Count Type Sponge, Sharps Counts Verification Baseline/pre-procedure Sequence Count Results Not Applicable Counts Performed By Count Performed By Letitia Washington (Scrub) Tree Faller Count Performed By Domingo Conklin RN (RN) Last Modified By: Julienne Atkins Rn 12/19/20 08:00:18 [facility] IntraOp Counts Final Entry 1 Procedure Achilles Tendon Repair(Right), Bone Spur Excision Final Count Info Count Type Sponge, Sharps Counts Verification Skin Closure/end of Sequence procedure Count Results Correct, surgeon notified Counts Performed By Count Performed By Letitia Washington (Scrub) Tree Faller Count Performed By Julienne Atkins Rn (RN) Last Modified By: Julinene Atkins Rn 12/19/20 10:05:43 [facility] IntraOp Cultures and Spec Summary Entry 1 Cultrures and Specimens Specimen Ordered: Yes Test(s) Routine/Path-Lab Requested/Final Disposition Last Modified By: Julienne Atkins Rn 12/19/20 09:32:55 General Comments: A. RIGHT FOOT BONE [facility] IntraOp Delays Entry 1 Delay Reason Patient, other (document in comment) Duration 25 Minute(s) Comment PATIENT GETTING NERVE BLOCK Last Modified By: Julienne Atkins Rn 12/19/20 08:00:49 [facility] IntraOp Departure from OR Entry 1 Integumentary Assessment Integumentary WDL Assessment WDL Transfer/Handoff Transfer to PACU Phase I Handoff Method Bedside/Face to face, Phone call Post-op Transport Stretcher/Gurney Via Patient Transport YVETTE CEJA, Accompanied by Wilbert CLEVELAND Tracy R, Viri, Domingo Conklin RN Last Modified By: Julienne Atkins Rn 12/19/20 08:01:04 [facility] IntraOp Drains and Tubes Entry 1 Device Type Dane Size 1/4 Drain/Tube Activity Inserted Drain/Tube Suction [place] Drain/Tube Drainage Red Device Location RIGHT LOWER LEG Method of Drainage [place] Last Modified By: Julienne Atkins Rn 12/19/20 08:49:09 [facility] IntraOp Dressing and Packing Entry 1 Type Dressing Location RIGHT FOOT Wound Dressing Item 4x4's, Kerlix/Janie, Johnnie, Other Applied By MEE TUCKER, DPM-POD Other Comments SILVER DRESSING Last Modified By: Julienne Atkins Rn 12/19/20 10:05:02 [facility] IntraOp Dressing and Packing Audit 12/19/20 10:05:02 Cosmetics Counter Manager: [id number] Modifier: [id number] 1 <*> Wound Dressing Item 4x4's, Kerlix/Janie, Johnnie 1 <+> Applied By 1 <*> Other Comments ACTICOAT [facility] IntraOp Fire Risk Assessment Entry 1 Fire Info Surgical Site or 0- No Incision Above the Xyphoid Open O2 Source 0- No (Mask or Cannula) Available Ignition 1- Yes (ESU, Laser, Light Source) Fire Risk 1 Assessment Score Fire Score Fire Risk Yes Assessment Complete Fire Risk Julienne Atkins Rn Assessment Verified By Fire Risk 12/19/20 08:01:00 Assessment Verified Date/Time Fire Risk Standard Fire Yes Safety Precautions Followed Last Modified By: Julienne Atkins Rn 12/19/20 08:01:48 [facility] IntraOp General Case Change Booth Attendant 1 Case Information OR OR 02 [facility] Case Level 1 Room Verified Yes Wound Class I - Clean Specialty Podiatry Anesthesia Type General ASA Class 3 Diagnosis Preop Diagnosis RIGHT ACHILLES INJURY Postop Same As Preop No Postop Diagnosis SEE MD NOTES Last Modified By: Julienne Atkins Rn 12/19/20 08:02:15 [facility] IntraOp Implant Log Entry 1 Entry 2 Entry 3 Type Tissue Implant Implant (Synthetic) Implant (Synthetic) (Biologic) Implant Log Implant Type Hardware Hardware Tissue Implant Type Tissue Implant IMP STRAVIX [id number] ARTHREX ANCHOR KT IB PLUS BC W/CC FT Identification [id number] Description Implant Quantity 1 2 1 Implant Site RIGHT ANKLE RIGHT FOOT RIGHT FOOT Implant Identification Model Number Implant [id number] Identification Serial Number Implant [id number] Identification Lot Number Implant [employer] ARTHREX Arthrex Identification Racket Stringer Name: Implant [id number] Identification Catalog Number Implant Size Implant Has an Yes Yes Yes Expiration Date Implant Expiration 04/13/23 08/01/22 07/01/22 Date Wasted Radioactive Material Time Implanted Tissue Implant Continue for Tissue Implant Documentation Tissue Identification Number Graft Prep Per Yes Racket Stringer Instructions: Tissue Preparation N/A Method: Reconstitution Solution: Reconstitution Solution Lot Number Reconstitution Solution Expiration Date: Thawing Solution Thawing Solution Lot Number Thawing Solution Expiration Date Preparation Materials, Other Preparation Materials, Other Lot Number Preparation Materials, Other Expiration Date MEE Ash, Prepared/Processed DPM-POD By Racket Stringer Yes Paperwork Completed Implant Type Comment Last Modified By: Julienne Atkins Rn Compton, Tracy R, Rn Compton, Tracy R, Rn 12/19/20 09:32:32 12/19/20 09:32:32 12/19/20 09:32:32 Entry 4 Type Implant (Synthetic) Implant Log Implant Type Tissue Implant Type Implant ARTHREX SUTURE TAPE REF Identification [id number] Description Implant Quantity 1 Implant Site OPSITE Implant Identification Model Number Implant Identification Serial Number Implant [id number] Identification Lot Number Implant Identification Racket Stringer Name: Implant Identification Catalog Number Implant Size Implant Has an Yes Expiration Date Implant Expiration 08/31/25 Date Wasted Radioactive Material Time Implanted Tissue Implant Continue for Tissue Implant Documentation Tissue Identification Number Graft Prep Per Racket Stringer Instructions: Tissue Preparation Method: Reconstitution Solution: Reconstitution Solution Lot Number Reconstitution Solution Expiration Date: Thawing Solution Thawing Solution Lot Number Thawing Solution Expiration Date Preparation Materials, Other Preparation Materials, Other Lot Number Preparation Materials, Other Expiration Date Tissue Prepared/Processed By Racket Stringer Paperwork Completed Implant Type Comment Last Modified By: Julienne Atkins Rn 12/19/20 10:03:35 [facility] IntraOp Implant Log Audit 12/19/20 10:03:35 Cosmetics Counter Manager: [id number] Modifier: [id number] <+> 4 Implant Identification Description <+> 4 Implant Identification Lot Number <+> 4 Implant Expiration Date <+> 4 Implant Site <+> 4 Implant Quantity <+> 4 Implant Has an Expiration Date <+> 4 Type [facility] IntraOp Intraoperative Assessment Entry 1 Handoff Method Bedside/Face to face, Online nursing summary Valid History / Yes Physical in Chart Preoperative Yes Checklist Reviewed/Evaluated Allergies Reviewed Yes Patient is Latex No Sensitive Isolation Not applicable Precautions Noted Level of WDL Consciousness (WDL = Alert, Oriented to Person, Place, and Time) Skin Assessment Yes Verified Present Upon IVs Arrival to OR Last Modified By: Julienne Atkins Rn 12/19/20 08:03:12 [facility] IntraOp Intraoperative Equipment Entry 1 Type Equipment Equipment Equipment Yumi Suction System ID Number [id number] Setting ON Intraop Monitoring Blood Pressure Non-Invasive BP Device Source Antiembolic Devices Scopes Photo/Video Documentation Last Modified By: Julienne Atkins Rn 12/19/20 08:03:54 [facility] IntraOp Medication Admin Entry 1 Medication/Irrigant LAILA IRR NACL 0.9PCT 2000ML [id number] Time Administered 12/19/20 08:35:00 Route of IRRIGATION Administration Dose Administered By MEE TUCKER, DPOswald-POD Procedure Irrigation Last Modified By: Julienne Atkins Rn 12/19/20 09:04:22 [facility] IntraOp Medication Admin Audit 12/19/20 09:04:22 Cosmetics Counter Manager: [id number] Modifier: [id number] 1 <*> Medication/Irrigant LAILA IRR NACL 0.9PCT 2000ML [id number] 1 <+> Time Administered [facility] IntraOp Patient Positioning Entry 1 Procedure Achilles Tendon Repair(Right), Bone Spur Excision Body Position Prone Left Arm Position Secured on padded arm board Right Arm Position Secured on padded arm board Left Leg Position Uncrossed, parallel Right Leg Position Held on field Feet Uncrossed Yes Pressure Points Yes Checked Positioning Devices Arm Board, Roll(s), Chest, Pad, Arm, Pillows, Safety Strap, Thighs Positioned By MEE TUCKER, DPM-POD, YVETTE CEJA APRN, Julienne Atkins, Rn, Domingo Conklin, RN Position Verified Positioning Yes Verified by Anesthesia Positioning Yes Verified by Surgeon Last Modified By: Julienne Atkins Rn 12/19/20 08:05:17 [facility] IntraOp Sign In Entry 1 Patient, Site, Yes Procedure Identified Surgical Consent Yes Confirmed Relevant Surgical Yes Documents Available Surgical Site Yes Marked by person performing procedure Anesthesia Machine Yes Check Completed Medication Checks Yes Completed Allergies Yes Airway Difficult No Airway/Aspiration Risk Difficult Yes Airway/Aspiration Intervention Equipment Available Blood Loss Risk Yes Blood Loss Yes Intervention Equipment Prepared and Ready Blood Identifiers Not applicable Verified Per Policy Hypothermia Risk Yes Warming Measures Yes Taken Last Modified By: Julienne Atkins Rn 12/19/20 08:05:29 [facility] IntraOp Sign Out Entry 1 RN Confirmation Surgical Yes Procedure(s) Identified Instrument, Sponge Yes and Sharps Counts Correct/Documented Equipment Problems Yes Documented Specimen Labeled Yes Correctly Urinary Catheter N/A Documented in IView Sales Patient Yes Recovery Concerns Reviewed with Anesthesia Provider, Surgeon and RN Sales Patient Yes Management Concerns Reviewed with Anesthesia Provider, Surgeon and RN Safety Checklist Yes Elements Complete? RN Sign Out Julienne tAkins Rn Signature RN Sign Out 12/19/20 10:28:00 Signature Date/Time Plan of Care Outcome - Fire Risk OUTCOME STATEMENT: Goal met Patient is free from injury related to surgical fire Plan of Care Outcome - Pt Positioning OUTCOME STATEMENT: Goal met Absence of signs and symptoms of positioning injury. Plan of Care Outcome - Skin Prep OUTCOME STATEMENT: Goal met Intraoperative care is consistent with measures to prevent infection Plan of Care Outcome - Xray/Images OUTCOME STATEMENT: Goal met Absence of observable signs or symptoms of radiation injury Plan of Care Outcome - Counts OUTCOME STATEMENT: Goal met Absence of signs and symptoms of injury related to extraneous objects Last Modified By: Julienne Atkins Rn 12/19/20 10:28:48 [facility] IntraOp Sign Out Audit 12/19/20 10:28:48 Cosmetics Counter Manager: [id number] Modifier: [id number] <+> 1 RN Sign Out Signature Date/Time [facility] IntraOp Skin Prep Entry 1 Procedure Achilles Tendon Repair(Right), Bone Spur Excision Prescribed Yes Pre-Surgical Prep Completed Prep Area RIGHT FOOT AND LOWER LEG TO KNEE Intraop Prep Integumentary WDL Assessment WDL Prep Agents Chloraprep Prep by Julienne Atkins Rn Hair Removal Methods No hair removal performed Last Modified By: Julienne Atkins Rn 12/19/20 08:08:22 [facility] IntraOp Surgical Procedures Entry 1 Entry 2 Procedure Achilles Tendon Repair Bone Spur Excision Modifiers Right Additional (RT FOOT ACHILLES Procedure DETACH REATTACH, Description CALCANEAL SPUR RESECTION, GASTROCHEMIUS RECESSION GRAFT) Primary Procedure Yes No Primary Surgeon MEE TUCKER, MEE TUCKER, DPM-POD DPM-POD Start 12/19/20 08:35:00 12/19/20 08:35:00 Stop 12/19/20 10:16:00 12/19/20 10:16:00 Physician States Cecum Reached Anesthesia Type General General Specialty Podiatry Podiatry Wound Class I - Clean I - Clean Last Modified By: Julienne Atkins Rn Compton, Tracy R, Rn 12/19/20 10:28:50 12/19/20 10:28:50 [facility] IntraOp Surgical Procedures Audit 12/19/20 10:28:50 Cosmetics Counter Manager: [id number] Modifier: [id number] <+> 1 Stop <+> 2 Stop [facility] IntraOp Temp Regulation Devices Entry 1 Temp Regulation Temperature Forced Air Warming Regulation Device device, Warm blankets Temperature [id number] Regulation Device Serial/Unit Number Temperature Upper body Regulation Site Temperature Device on Setting Temperature YVETTE CEJA APRN Regulation Device Applied by Last Modified By: Julienne Atkins Rn 12/19/20 08:39:43 [facility] IntraOP Time Out Entry 1 Procedure to be Achilles Tendon Performed Repair(Right), Bone Spur Excision Time Out Time Out Pause Time 12/19/20 08:32:00 All activity Yes suspended (unless life threatening emergency) Team Verbally Correct patient Confirms Information identity, Correct side and site are marked, Consent form is present and accurate, Agreement on the procedure to be done, Correct patient position, Relevant images/results properly labeled/appropriately displayed, Confirm antibiotics have been administered, Confirm the skin prep has dried, Confirm prosthesis/implant/devic e is present, Performed in location of procedure after prepped/draped, Reconcile problems if responses among team members differ Antibiotic Yes Prophylaxis Administered Or In Progress Within the Last 60 Minutes Beta Piotr N/A Administered Venous N/A Thromboembolism Prophylaxis Required Anticipated Critical Events Surgeon None expected Anesthesia Provider None expected Nursing Assures Sterility of instruments, Equipment concerns or issues, Implant Availability Essential Imaging Yes Labeled and Displayed Last Modified By: Julienne Atkins Rn 12/19/20 08:38:12 [facility] IntraOp Tourniquet Entry 1 Type Pneumatic Serial/Unit Number [id number] Setting 300 mmHg Pheumatic Yes Tourniquet Checked Per Protocol Placement Thigh, right upper Skin Protection - Yes Padded Under Cuff Applied By Julienne Atkins Rn Removed By MEE TUCKER DPM-POD Times Start Time 12/19/20 08:34:00 Stop Time 12/19/20 10:15:00 Total Time 101 calculated manually (Mins) Last Modified By: Julienne Atkins Rn 12/19/20 10:16:00 [facility] IntraOp Tourniquet Audit 12/19/20 10:16:00 Cosmetics Counter Manager: [id number] Modifier: [id number] <+> 1 Total Time calculated manually (Mins) <+> 1 Stop Time Case Comments <None> Finalized By: KENDRA PROCTOR Document Signatures Signed By: Julienne Atkins Rn 12/19/20 10:28 KENDRA PROCTOR 12/20/20 12:08 KENDRA PROCTOR 12/21/20 10:05 Unfinalized History Date/Time Username Reason for Unfinalizing Freetext Reason for Unfinalizing 12/20/20 12:03 WATTS Correct Billing 12/21/20 10:05 [email or web address] Correct Billing Electronically signed by Ever[facility] Conversion Motion Picture Set Up Worker Cerner at 08/22/2022 3:52 PM CDT documented in this encounter Plan of Treatment Not on file documented as of this encounter Visit Diagnoses Not on filedocumented in this encounter Care Teams Delivery Manager Relationship Specialty Start Date End Date Santosh Briones MD [address] [facility] [address] [place], [place] [id number] PCP - General General Internal Medicine 04/18/22 04/22/22 Santosh Briones MD [address] [place], [place] [id number] PCP - General General Internal Medicine 04/23/22 Julius Cho MD [address] [place] [address] Referring Physician Internal Medicine 04/23/22 Lew Ross MD [address] [facility] [address] [place] [address] Cardiology 08/13/23 Karlos Islas PA-C [address] [facility], [facility] [address] [place] [address] Cardiology 11/23/23 documented as of this encounter
--- OUTSIDE RECORDS SUMMARY | 2024-10-21 09:22 | XMS_ITS | Encounter Summary ---
Author Organization [employer] Address [address] [place] [address] Care Team Providers Care Thermoplastic Technician Name Role Phone Santosh Briones MD Primary Care Provider [phone] Santosh Briones MD Primary Care Provider [phone] Julius Cho MD Unavailable Lew Ross MD Unavailable Karlos Islas PA-C Unavailable [phone] Encounter Details Date Type Department Care Team (Late st Contact Info) Description 07/25/2021 Transcribed Document [facility] [place] [address] ProviderAle MD [address] [place] [address] Social History Tobacco Use Types Packs/Day Years Used Date Smoking Tobacco: Never Assessed Comments Unknown Sex and Gender Information Value Date Recorded Sex Assigned at Female 03/19/2022 10:49 AM CONDENSER TUBE TENDER Legal Sex Female 5:46 PM CDT Gender Identity Female 03/19/2022 10:49 AM CONDENSER TUBE TENDER Sexual Orientation Not on file documented as of this encounter Miscellaneous Notes * Cerner Conversion Note - Ale Johnson MD - 07/25/2021 3:54 PM CDT Patient Education Materials Follows: Moderate Conscious Sedation, Adult, Care After This [...] eating solid foods. General instructions ??? Take xyfr-wkb-tkqnwnl and prescription medicines only as told by [...] Reviewed: 03/15/2020 Elsevier Patient Education ? 2020 [employer] Procedures Endovenous Ablation, Care After This sheet gives [...] and water are not available, use hand body mechanic. ? Change your dressing as told by [...] Get up to take short walks every 1?2 hours. This is important to improve blood flow. Ask for help if you feel weak or unsteady. ??? Rest as told by your health care provider. General instructions ??? Take wwlv-lls-ipcvsfs and prescription medicines only as told by [...] Get up to take short walks every 1?2 hours. ??? Wear compression stockings as told [...] provider. Document Revised: 12/29/2018 Document Reviewed: 12/29/2018 [employer] Patient Education ? 2020 [employer]. Electronically signed by Jeremy Mcgee Conversion Lean Manufacturing Coordinator Cerner at 08/22/2022 3:48 PM CDT documented in this encounter Plan of Treatment Not on file documented as of this encounter Visit Diagnoses Not on filedocumented in this encounter Care Teams Thermoplastic Technician Relationship Specialty Start Date End Date Santosh Briones MD [address] [facility] [place] [address] PCP - General General Internal Medicine 04/18/22 04/22/22 Santosh Briones MD [address] [facility] [place] [address] PCP - General General Internal Medicine 04/23/22 Julius Cho MD [address] [place] [address] Referring Physician Internal Medicine 04/23/22 Lew Ross MD [address] [facility] [address] [place] [address] Cardiology 08/13/23 Karlos Islas PA-C [address] [place] [address] Cardiology 11/23/23 documented as of this encounter
--- OUTSIDE RECORDS SUMMARY | 2024-10-21 09:22 | XMS_ITS | Encounter Summary ---
Author Organization [employer] Address [address] [place] [address] Care Team Providers Care Measurement Supervisor Name Role Phone Santosh Briones MD Primary Care Provider Santosh Briones MD Primary Care Provider [phone] Julius Cho MD Unavailable Lew Ross MD Unavailable Karlos Islas PA-C Unavailable [phone] Encounter Details Date Type Department Care Team (Late st Contact Info) Description 07/23/2021 Transcribed Document [facility] [place] [facility] [place] [address] ProviderAle MD [address] [place] [address] Social History Tobacco Use Types Packs/Day Years Used Date Smoking Tobacco: Never Assessed Comments Unknown Sex and Gender Information Value Date Recorded Sex Assigned at Female 03/19/2022 10:49 AM SUPERVISOR PIG MACHINE Legal Sex Female 5:46 PM CDT Gender Identity Female 03/19/2022 10:49 AM SUPERVISOR PIG MACHINE Sexual Orientation Not on file documented as of this encounter Miscellaneous Notes * Cerner Conversion Note - Ale Johnson MD - 07/23/2021 1:19 PM CDT Pre Procedure Adult Entered On: 07/23/2021 14:07 EDT Performed On: 07/23/2021 13:19 EDT by Lisa Prado RN Height and Weight, Clinical Dosing Height Source : Stated Height Entry Format : Gibson Height, Feet : 5 ft(Converted to: 152 cm, 60 Inch) Height, Inches : 7 Inch(Converted to: 0 ft 7 Inch, 17.78 cm) Clinical Height : 170.18 cm Weight Source : Standing scale Weight Entry Format : Gibson Clinical Dosing Weight : 126.82 kg Weight, Pounds : 279 lb Body Surface Area (BSA) : 2.33 m2 Body Mass Index : 43.8 kg/m2 (>HHI) Trona Body Weight : 61 kg Lisa Prado RN - 07/23/2021 13:19 EDT Health Histories Smoking Status : Never (less than 100 in lifetime; none in last 30 days) Smokeless Tobacco Status : Never Implant/Device Type, Harbormaster and Model : breast implants IVC filter Lisa Prado RN - 07/23/2021 13:19 EDT Social History (As Of: 07/23/2021 14:07:41 EDT) Tobacco: Never (less than 100 in [...] COVID-19 in the last 14 days? : No, Patient stated Does the Patient state known exposure to a COVID-19 positive case in the last 14 days? : No Patient Vaccinated for COVID-19 : Fully vaccinated Lisa Prado RN - 07/23/2021 13:19 EDT Infectious Disease Risk Screening Grid Cough < 2 wks of unknown origin : NO Cough > 2 weeks : NO Blood in Sputum : NO Fever or self-reported Fever : NO Rash of unknown origin : NO Headache : NO Stiff neck : NO Night Sweats : NO Unexplained Weight Loss : NO Diarrhea (3 episode per day) : NO Lisa Prado RN - 07/23/2021 13:19 EDT Physical contact outside [place] in the last 30 days : No Hospitalized in Foreign Country : No Infectious Disease History : Chicken pox/Shingles, Influenza INF Disease TB Screening Calc : 0 INF Disease Recent Travel Calc : 0 Lisa Prado RN - 07/23/2021 13:19 EDT COVID19 PreProcedure Screening Is this an Emergent or Add on Procedure? : No Date PreProcedure COVID-19 test known? : No Has patient been isolated since the test : N/A - PreProcedure, in-person visit Exposed to COVID19 symptoms since test? : N/A - PreProcedure, in-person visit Lisa Prado RN - 07/23/2021 13:19 EDT Anesthesia/Transfusion History Family History of Anesthesia Reaction : No prior transfusion(s) Transfusion History : Prior anesthesia without reaction Family History of Anesthesia Reaction : None Intubation History : Unknown Lisa Prado RN - 07/23/2021 13:19 EDT Functional Assessment Living Situation : Home Current Home Treatments : None Lisa Prado RN - 07/23/2021 13:19 EDT Edgar Suicide Severity Rating Scale (C-SSRS) CSSRS Past Month Wish to be : No CSSRS Past Month Suicidal Thoughts : No CSSRS Lifetime Suicide Behavior : No Suicide Severity Rating Score : 0 Suicide Severity Rating : No Additional Care Required at this time Lisa Prado RN - 07/23/2021 13:19 EDT Psychosocial History Do You Have a History of the Following? : Patient denies history Currently in Unsafe Situation : No Lisa Prado RN - 07/23/2021 13:19 EDT Advance Directive Patient has Advance Directive *Q : No, patient refuses Advance Directive information Lisa Prado RN - 07/23/2021 13:19 EDT General Info Support Person/Patient Garbage Pick Up Worker : Yes Support Person/Pt Rep Name : Jose Ramon Lorenzana - Support Person/Pt Rep Contact Information : [phone] Want Family/Rep/Phys Notified of Admit : No Emergency Contact #1 : na Emergency Contact #1 Phone Number : na Emergency Contact #1 Relationship : na Emergency Contact #2 : na Emergency Contact #2 Phone Number : na Emergency Contact #2 Relationship : na Primary Language : Venezuelan Preferred Communication Mode : Verbal Communication Barrier : None Manager Bank Needed : No Lisa Prado RN - 07/23/2021 13:19 EDT Sleep Apnea Risk Assmt Hx of [...] Sleep Apnea Risk Level Score : 3 Lisa Prado RN - 07/23/2021 13:19 EDT Ke Scale Ke Sensory Perception : No impairment Ke Moisture : Rarely moist Ke Activity : Walks frequently Ke Mobility : No limitation Ke Nutrition : Excellent Ke Friction and Shear : No apparent problem Ke Score : 23 Lisa Prado RN - 07/23/2021 13:19 EDT Fall Risk Scales ABCs Fall Injury Risk Identification : None SANCHEZ Hx Falls Immediate/Within 3 Months : No Sanchez Secondary Diagnosis : No SANCHEZ Use of Ambulatory Aid : None SANCHEZ IV Therapy or IV Access : Yes Sanchez Gait/Transferring : Normal, bedrest, immobile Sanchez Mental Status : Oriented to own ability Sanchez Fall Risk Score : 20 SANCHEZ Fall Scale Risk Level : 0-24 Low Risk Cummings Fall Interventions : Adequate lighting, Assistive devices within reach, Bed in low position, Call device within reach, Fall prevention handout/education per facility policy, Frequent orientation to call device, Non-slip footwear, Personal items within reach, Reinforced to call for assistance before getting out of bed, Wheels locked, Wires/Cords secured Lisa Prado RN - 07/23/2021 13:19 EDT Valuables and Belongings Valuables and Belongings : Clothing Clothing : Common streetwear Clothing Disposition : Bedside, With family Lisa Prado RN - 07/23/2021 13:19 EDT documented in this encounter Plan of Treatment Not on file documented as of this encounter Visit Diagnoses Not on filedocumented in this encounter Care Teams Measurement Supervisor Relationship Specialty Start Date End Date Santosh Briones MD [address] [facility] [place], [place] [id number] PCP - General General Internal Medicine 04/18/22 04/22/22 Santosh Briones MD [address] [place], [place] [id number] PCP - General General Internal Medicine 04/23/22 Julius Cho MD [address] [place] [address] Referring Physician Internal Medicine 04/23/22 Lew Ross MD [address] [facility] [address] [place] [address] Cardiology 08/13/23 Karlos Islas PA-C [address] [place] [address] Cardiology 11/23/23 documented as of this encounter
--- OUTSIDE RECORDS SUMMARY | 2024-10-21 09:22 | XMS_ITS | Encounter Summary ---
Author Organization [employer] Address [address] [place] [address] Care Team Providers Care Layout Technician Name Role Phone Santosh Briones MD Primary Care Provider [phone] Santosh Briones MD Primary Care Provider [phone] Julius Cho MD Unavailable Lew Ross MD Unavailable Karlos Islas PA-C Unavailable [phone] Encounter Details Date Type Department Care Team (Late st Contact Info) Description 12/19/2020 Transcribed Document [facility] [place] Family Medicine [address] [place] [address] ProviderAle MD [address] [place] [address] Social History Tobacco Use Types Packs/Day Years Used Date Smoking Tobacco: Never Assessed Comments Unknown Sex and Gender Information Value Date Recorded Sex Assigned at Female 03/19/2022 10:49 AM BARBER SHOP OPERATOR Legal Sex Female 5:46 PM CDT Gender Identity Female 03/19/2022 10:49 AM BARBER SHOP OPERATOR Sexual Orientation Not on file documented as of this encounter Miscellaneous Notes * Cerner Conversion Note - Ale Johnson MD - 12/19/2020 3:48 PM CDT DATE OF PROCEDURE: 12/19/2020 1963 SURGEON: Massimo Blake DPM CLASSROOM ASSISTANT: None. PREOPERATIVE DIAGNOSES: Right Achilles tendon tear; pain, right foot and leg; edema to the right lower extremity, chronic lipid and lymphedema; gastroc equinus right ; and right calcaneal spur. POSTOPERATIVE DIAGNOSES: Right Achilles tendon tear; pain, right foot and leg; edema to the right lower extremity, chronic lipid and lymphedema; right gastroc equinus; and right calcaneal spur. PROCEDURES PERFORMED: 1. Achilles tendon repair with calcaneal spur resection Right ( detach /reattach anchors) 2. Right gastroc recession 3. Application of anterior-posterior splint. 4. use of allograft with Right foot Achilles repair. PATHOLOGY: Bone. ANESTHESIA: General. HEMOSTASIS: Pneumatic thigh tourniquet on the right at 300 mmHg. ESTIMATED BLOOD LOSS: Minimal. MATERIALS: Stratafix, nylon 2-0, Vicryl 2-0, Arthrex anchors x4. Dane drain. Graft Info: We used a 2 x 4 graft and the graft was completely used 100%. It was an Mary graft and Stravix graft. The rationale is to help in healing of the tissue and to give augmentation to the tissue as we healed it. INJECTABLES: See Anesthesia. COMPLICATIONS: None. INDICATIONS FOR PROCEDURE: The patient is a 55-year-old female, status post right Achilles tendon MRI, which found a tear to the area and found gastroc equinus. The patient failed conservative care, could not wear a boot and wrap due to the fact of the size of her leg, could not fit a boot on her leg. Therefore, the patient opted for surgical treatment. All risks, benefits, and potential complications were explained to the patient in great detail. The patient had the opportunity to ask questions. No guarantees were given or implied. OPERATIVE TECHNIQUE: The patient was brought into the operating room and placed on the operating room table in prone position, well-padded chest rolls and so forth. The right foot, ankle, and leg were prepped and draped in usual sterile fashion. Attention was then directed to patient's right foot, ankle, and leg where we made an incision over the medial leg there, identified the gastroc aponeurosis and did a gastroc recession. There was excellent release of that tissue. There was much less contractility at this time and we were able to do it. The surgical site was flushed with copious amounts of sterile saline and we were able to perform the gastroc recession. We then after finishing the gastroc recession after blunt and sharp dissection was done and paying careful attention to any neurovascular structures in the area, which were bovied, ligated and retracted as necessary. We then placed a Saint Joseph drain. We closed up the incision with Vicryl after a quarter-inch Saint Joseph drain was placed and then we put a 2-0 uninterrupted nylon in there after the Vicryl, and then we put incision on the posterior Achilles, where we identified the Achilles tendon, the calcaneal spur and so forth, identified that, we resected off the Achilles and removed all the calcification within the tendon, all the bone spur and so forth until a flat area of the back. We then anchored the tendon back onto the bone with two different types of tendon anchors, one for the main hook into the tendon and then the SpeedBridge tendon anchors, push locks. SpeedBridge was then complete. We then augmented the area with graft as well as additional suturing technique to help reinforce the tendons into the bone to give additional strength for the construct from both the anchors itself as well as the suture from the anchors. The area was then flushed with copious amounts of sterile saline and then we reapproximated the paratenon after allograft was placed with Vicryl, cutaneous structures with Stratafix. The surgical site was then dressed with silver dressing, 4 x 4's, Kerlix, Coban, and a well-padded splint was then applied to the patient's right lower extremity. The patient tolerated the procedure and anesthesia well without any complications. The patient was transported from the operating room to the recovery room for monitoring vital signs and neurovascular status. Prior to patient's discharge, patient will receive both oral and written instructions. The patient will follow up in my office. The patient is to keep dressing clean, dry, and intact, take medications as prescribed, call for any questions or emergencies. We will continue to follow this patient. /[id number] YONG Enciso/JALEEL / BMF / MODL /[id number] documented in this encounter Plan of Treatment Not on file documented as of this encounter Visit Diagnoses Not on filedocumented in this encounter Care Teams Layout Technician Relationship Specialty Start Date End Date Santosh Briones MD [address] [facility] [address] [place], [place] [id number] PCP - General General Internal Medicine 04/18/22 04/22/22 Santosh Briones MD [address] [place], [place] [id number] PCP - General General Internal Medicine 04/23/22 Julius [place] [address] Referring Physician Internal Medicine 04/23/22 Lew Ross MD [address] [facility] [address] [place] [address] Cardiology 08/13/23 Karlos Islas PA-C [address] [facility] [address] [place] [address] Cardiology 11/23/23 documented as of this encounter
--- OUTSIDE RECORDS SUMMARY | 2024-10-21 09:22 | XMS_ITS | Encounter Summary ---
Author Organization [employer] Address [address] [place] [address] Care Team Providers Care Senior Mainframe Programmer Analyst Name Role Phone Santosh Briones MD Primary Care Provider [phone] Santosh Briones MD Primary Care Provider [phone] Julius Cho MD Unavailable Lew Ross MD Unavailable Karlos Islas PA-C Unavailable [phone] Encounter Details Date Type Department Care Team (Late st Contact Info) Description 07/24/2021 Transcribed Document [facility] [place] [address] ProviderAle MD [address] [place] [address] Social History Tobacco Use Types Packs/Day Years Used Date Smoking Tobacco: Never Assessed Comments Unknown Sex and Gender Information Value Date Recorded Sex Assigned at Female 03/19/2022 10:49 AM PRIMARY OPERATOR Legal Sex Female 5:46 PM CDT Gender Identity Female 03/19/2022 10:49 AM PRIMARY OPERATOR Sexual Orientation Not on file documented as of this encounter Miscellaneous Notes * Cerner Conversion Note - Ale ProviderMD - 07/24/2021 12:43 PM CDT Pre Procedure Adult Entered On: 07/24/2021 12:47 EDT Performed On: 07/24/2021 12:[address], KATIA Height and Weight, Clinical Dosing Height Source : Stated Height Entry Format : [place] Height, Feet : 5 ft(Converted to: 152 cm, 60 Inch) Height, Inches : 7 Inch(Converted to: 0 ft 7 Inch, 17.78 cm) Clinical Height : 170.18 cm Weight Source : Standing scale Weight Entry Format : [place] Clinical Dosing Weight : 126.82 kg Weight, Pounds : 279 lb Body Surface Area (BSA) : 2.33 m2 Body Mass Index : 43.8 kg/m2 (>HHI) [place] Body Weight : [address] RN - 07/24/2021 12:43 EDT Health Histories Smoking Status : Never (less than 100 in lifetime; none in last 30 days) Smokeless Tobacco Status : Never Implant/Device Type, Outdoor Studies Director and Model : breast implants IVC filter OUSMANE LANE RN - 07/24/2021 12:43 EDT Social History (As Of: 07/24/2021 12:47:09 EDT) Tobacco: Never (less than 100 in [...] COVID-19 in the last 14 days? : Yes, Patient stated results Negative Does the Patient state known exposure to a COVID-19 positive case in the last 14 days? : No Patient Vaccinated for COVID-19 : Fully vaccinated OUSMANE LANE RN - 07/24/2021 12:43 EDT Infectious Disease Risk Screening Grid Cough < 2 wks of unknown origin : NO Cough > 2 weeks : NO Blood in Sputum : NO Fever or self-reported Fever : NO Rash of unknown origin : NO Headache : NO Stiff neck : NO Night Sweats : NO Unexplained Weight Loss : NO Diarrhea (3 episode per day) : NO OUSMANE ALNE RN - 07/24/2021 12:43 EDT Physical contact outside [place] in the last 30 days : No Hospitalized in Foreign Country : No Infectious Disease History : Chicken pox/Shingles, Influenza INF Disease TB Screening Calc : 0 INF Disease Recent Travel Calc : [address] RN - 07/24/2021 12:43 EDT COVID19 PreProcedure Screening Is this an Emergent or Add on Procedure? : No Date PreProcedure COVID-19 test known? : Yes Date of PreProcedure COVID-19 : 07/17/2021 EDT Has patient been isolated since the test : No Exposed to COVID19 symptoms since test? : No OUSMANE LANE RN - 07/24/2021 12:43 EDT Anesthesia/Transfusion History Family History of Anesthesia Reaction : No prior transfusion(s) Transfusion History : Prior anesthesia without reaction Family History of Anesthesia Reaction : None Intubation History : Unknown OUSMANE LANE RN - 07/24/2021 12:43 EDT Functional Assessment Living Situation : Home Current Home Treatments : None OUSMANE LANE RN - 07/24/2021 12:43 EDT [place] Suicide Severity Rating Scale (C-SSRS) CSSRS Past Month Wish to be : No CSSRS Past Month Suicidal Thoughts : No CSSRS Lifetime Suicide Behavior : No Suicide Severity Rating Score : 0 Suicide Severity Rating : No Additional Care Required at this time OUSMANE LANE RN - 07/24/2021 12:43 EDT Psychosocial History Do You Have a History of the Following? : Patient denies history Currently in Unsafe Situation : No OUSMANE LANE RN - 07/24/2021 12:43 EDT Advance Directive Patient has Advance Directive *Q : No, patient refuses Advance Directive information OUSMANE LANE RN - 07/24/2021 12:43 EDT Teaching/Learning Assessment Barriers To Learning : None evident Individuals Taught : Patient Learning Style Preferences Patient : Verbal explanation OUSMANE LANE RN - 07/24/2021 12:43 EDT Education Topics, Periop Preadmission Perioperative Education Grid Arrival Time/Place : Verbalizes understanding IV's : Verbalizes understanding NPO Status/Directions : Verbalizes understanding Pain Management : Verbalizes understanding Take/Hold Medications Pre-Procedure : Verbalizes understanding OUSMANE LANE RN - 07/24/2021 12:43 EDT General Info Support Person/Patient Shop Teacher : Yes Support Person/Pt Rep Name : Jose Ramon Lorenzana - Support Person/Pt Rep Contact Information : [phone] Want Family/Rep/Phys Notified of Admit : No Emergency Contact #1 : Gopal Jimenez Emergency Contact #1 Emergency Contact #1 Relationship : Brother Emergency Contact #2 : . Emergency Contact #2 Phone Number : . Emergency Contact #2 Relationship : . Primary Language : Italian Preferred Communication Mode : Verbal Communication Barrier : None Lidar Scientist Needed : No OUSMANE LANE RN - 07/24/2021 12:43 EDT Vital Measurements Temperature Mode : Fahrenheit Temperature, Fahrenheit : 97.7 Deg F Clinical Temperature, C : 36.5 Deg C Heart Rate, Apical : 53 bpm (LOW) Systolic Blood Pressure : 125 mmHg Diastolic Blood Pressure : 68 mmHg Oxygen Saturation : 98 % Oxygen Therapy Mode : Room air OUSMANE LANE RN - 07/24/2021 12:43 EDT Sleep Apnea Risk Assmt Hx of [...] Sleep Apnea Risk Level Score : [address] RN - 07/24/2021 12:43 EDT Ke Scale Ke Sensory Perception : No impairment Ke Moisture : Rarely moist Ke Activity : Walks frequently Ke Mobility : No limitation Ke Nutrition : Excellent Ke Friction and Shear : No apparent problem Ke Score : [address] RN - 07/24/2021 12:43 EDT Pain Assessment Pain Assessment : Initial assessment Pain Scale Used : 0-[address] RN - 07/24/2021 12:43 EDT Fall Risk Scales ABCs Fall Injury [...] Scale Risk Level : 0-24 Low Risk [place] Fall Interventions : Adequate lighting, Assistive devices within reach, Call device within reach, Frequent orientation to call device, Frequent orientation to surroundings, Hourly comfort/safety rounds, Non-slip footwear, Personal items within reach, Reinforced to call for assistance before getting out of bed, Room free of clutter/spills, Upper side-rails up, Wheels locked, Wires/Cords secured OUSMANE LANE RN - 07/24/2021 12:43 EDT Education Topics, Day of Surgery DayofSurgery Education Grid Anesthesia/Sedation : Verbalizes understanding IV's : Verbalizes understanding Responsible Adult : Verbalizes understanding OUSMANE LANE RN - 07/24/2021 12:43 EDT Valuables and Belongings Valuables and Belongings : Clothing Clothing : Common streetwear Clothing Disposition : Bedside, With family, Declines to send to security/safe OUSMANE LANE RN - 07/24/2021 12:43 EDT Pain Scale Intensity : [address] RN - 07/24/2021 12:43 EDT Image 4 - Images currently included in the form version of this document have not been included in the text rendition version of the form. Electronically signed by Jeremy Mcgee Conversion Patient Care Nursing Assistant Cerner at 08/22/2022 3:49 PM CDT documented in this encounter Plan of Treatment Not on file documented as of this encounter Visit Diagnoses Not on filedocumented in this encounter Care Teams Senior Mainframe Programmer Analyst Relationship Specialty Start Date End Date Santosh Briones MD [address] [place] [address] [place] [address] PCP - General General Internal Medicine 04/18/22 04/22/22 Santosh Briones MD [address] [place] [address] [place] [address] PCP - General General Internal Medicine 04/23/22 Julius Cho MD [address] [place] [address] Referring Physician Internal Medicine 04/23/22 Lew Ross MD [address] [facility] [address] [place] [address] Cardiology 08/13/23 Karlos Islas PA-C [address], [facility] [address] [place] [address] Cardiology 11/23/23 documented as of this encounter
--- OUTSIDE RECORDS SUMMARY | 2024-10-21 09:22 | XMS_ITS | Encounter Summary ---
Author Organization [employer] Address [address] [place] [address] Care Team Providers Care Senior Hydrogeologist Name Role Phone Santosh Briones MD Primary Care Provider [phone] Santosh Briones MD Primary Care Provider [phone] Julius Cho MD Unavailable Lew Ross MD Unavailable Karlos Islas PA-C Unavailable [phone] Encounter Details Date Type Department Care Team (Late st Contact Info) Description 07/23/2021 Transcribed Document [facility] [place] [address] ProviderAle MD [address] [place] [address] Social History Tobacco Use Types Packs/Day Years Used Date Smoking Tobacco: Never Assessed Comments Unknown Sex and Gender Information Value Date Recorded Sex Assigned at Female 03/19/2022 10:49 AM PIANOS AND ORGANS SALESPERSON Legal Sex Female 5:46 PM CDT Gender Identity Female 03/19/2022 10:49 AM PIANOS AND ORGANS SALESPERSON Sexual Orientation Not on file documented as of this encounter Miscellaneous Notes * Cerner Conversion Note - Ale Johnson MD - 07/23/2021 12:48 PM CDT Height and Weight, Clinical Dosing Entered On: 07/23/2021 12:48 EDT Performed On: 07/23/2021 12:48 EDT by Lisa Prado RN Height and Weight, Clinical Dosing Height Source : Stated Height Entry Format : [place] Height, Feet : 5 ft(Converted to: 152 cm, 60 Inch) Height, Inches : 7 Inch(Converted to: 0 ft 7 Inch, 17.78 cm) Clinical Height : 170.18 cm Weight Source : Standing scale Weight Entry Format : [place] Clinical Dosing Weight : 126.82 kg Weight, Pounds : 279 lb Body Surface Area (BSA) : 2.33 m2 Body Mass Index : 43.8 kg/m2 (>HHI) [place] Body Weight : 61 kg Lisa Prado RN - 07/23/2021 12:48 EDT Electronically signed by [facility] Conversion Lunch Wagon Operator Cerner at 08/22/2022 4:02 PM CDT documented in this encounter Plan of Treatment Not on file documented as of this encounter Visit Diagnoses Not on filedocumented in this encounter Care Teams Senior Hydrogeologist Relationship Specialty Start Date End Date Santosh Briones MD [address] [facility] [address] [place], [place] [id number] PCP - General General Internal Medicine 04/18/22 04/22/22 Santosh Briones MD [address] [facility] [address] [place], [place] [id number] PCP - General General Internal Medicine 04/23/22 Julius Cho MD [address] [place] [address] Referring Physician Internal Medicine 04/23/22 Lew Ross MD [address] [facility] [address] [place] [address] Cardiology 08/13/23 Karlos Islas PA-C [address] [facility], [facility] [address] [place] [address] Cardiology 11/23/23 documented as of this encounter
--- OUTSIDE RECORDS SUMMARY | 2024-10-21 09:22 | XMS_ITS | Encounter Summary ---
Author Organization [employer] Address [address] [place] [address] Care Team Providers Care Dust Puller Name Role Phone Santosh Briones MD Primary Care Provider [phone] Santosh Briones MD Primary Care Provider [phone] Julius Cho MD Unavailable Lew Ross MD Unavailable Karlos Islas PA-C Unavailable [phone] Encounter Details Date Type Department Care Team (Late st Contact Info) Description 12/19/2020 Transcribed Document [facility] [place] [facility] [place] [address] ProviderAle MD [address] [place] [address] Social History Tobacco Use Types Packs/Day Years Used Date Smoking Tobacco: Never Assessed Comments Unknown Sex and Gender Information Value Date Recorded Sex Assigned at Female 03/19/2022 10:49 AM RUNWAY MODEL Legal Sex Female 5:46 PM CDT Gender Identity Female 03/19/2022 10:49 AM RUNWAY MODEL Sexual Orientation Not on file documented as of this encounter Miscellaneous Notes * Cerner Conversion Note - Ale Johnson MD - 12/19/2020 8:35 AM CDT [facility] Main OR PACU Summary Primary Physician: MEE TUCKER, DPM-POD Finalized Date/Time: 12/21/20 20:53:34 Pt. Name: JANIS FIGUEREDO./Sex: 1965 Female Med Rec #: [id number] Physician: MEE TUCKER, DPM-POD Financial #: [id number] Pt. Type: O Room/Bed: Admit/Disch: 12/19/20 06:32:00 - 12/19/20 12:11:00 Institution: [facility] Main OR PACU I Case Times Entry 1 In PACU I 12/19/20 10:25:00 Ready for PACU 12/19/20 11:05:00 Discharge Discharge from PACU 12/19/20 11:08:00 I Last Modified By: Sunshine Rowland RN-PATIENT CARE BEDSIDE NON-EXEMPT 12/19/20 11:55:39 [facility] Main OR PACU Acuity Entry 1 Start Time 12/19/20 11:05:00 Stop Time 12/19/20 11:08:00 Acuity Level [facility] PACU Acuity I Last Modified By: Letitia Dugan, Nurse Insurance Sales Producer 12/21/20 20:53:32 [facility] Main OR PACU Acuity Audit 12/21/20 20:53:32 Hemodialysis Lab Technician: [id number] Modifier: [id number] <*> Start Time 12/19/20 10:25:00 Finalized By: Letitia Dugan, Nurse Pelt Inspector Signatures Signed By: Sunshine Rowland RN-PATIENT CARE BEDSIDE NON-EXEMPT 12/19/20 11:55 Letitia Dugan Nurse Insurance Sales Producer 12/21/20 20:53 Unfinalized History Date/Time Username Reason for Unfinalizing Freetext Reason for Unfinalizing 12/21/20 20:53 [id number] Correct Billing Electronically signed by Everardo [facility] Conversion Heat Seal Operator Cerner at 08/22/2022 3:52 PM CDT documented in this encounter Plan of Treatment Not on file documented as of this encounter Visit Diagnoses Not on filedocumented in this encounter Care Teams Dust Puller Relationship Specialty Start Date End Date Santosh Briones MD [address] [facility] [place] [address] PCP - General General Internal Medicine 04/18/22 04/22/22 Santosh Briones MD [address] [place] [address] [place] [address] PCP - General General Internal Medicine 04/23/22 Julius Cho MD [address] [place] [address] Referring Physician Internal Medicine 04/23/22 Lew Ross MD [address] [facility] [address] [place] [address] Cardiology 08/13/23 Karlos Islas PA-C [address], [place] [address] [place] [address] Cardiology 11/23/23 documented as of this encounter
--- OUTSIDE RECORDS SUMMARY | 2024-10-21 09:23 | XMS_ITS | Clinical Summary ---
Author Organization [facility] Address [address] [place] [address] Care Team Providers Care Hammer Smith Name Role Phone Santosh Briones MD Primary Care Provider [phone] Social History Tobacco Use Types Packs/Day Years Used Date Smoking Tobacco: Never Alcohol Use Standard Drinks/Week Comments No 0 (1 standard drink = 0.6 oz pur e alcohol) Comments Unknown Sex and Gender Information Value Date Recorded Sex Assigned at Not on file Legal Sex Female 6:50 PM EDT Gender Identity Not on file Sexual Orientation Not on file Last Filed Vital Signs Vital Sign Reading Time Taken Comments Blood Pressure 142/77 09/06/2018 1:10 PM EDT Pulse 66 09/06/2018 1:10 PM EDT Temperature - - Respiratory Rate - - Oxygen Saturation - - Inhaled Oxygen Concentration - - Weight 109 kg (239 lb 15.9 oz) 09/06/2018 1:10 P M EDT Height 170.2 cm (5' 7 ) 09/06/2018 1:10 PM EDT Body Mass Index 37.59 09/06/2018 1:10 PM EDT Plan of Treatment Health Maintenance Due Date Last Done Comments [facility]-Depression Screening 1965 [facility]-Infant/Child/Adol SDOH Screenings 1965 [facility]- SDOH Screenings 1981 [facility]-Adult SDOH Screenings 1981 [facility]-DTaP,Tdap,and Td Vaccines (1 - Tdap) 1982 [facility]-Pap Smear 1984 [facility]-Cervical Cancer Screening 1993 [facility]-HPV/Cotest 1993 CT Colonography 2008 Colonoscopy 2008 FIT-DNA 2008 FIT 2008 FOBT 2008 Sigmoidoscopy 2008 [facility]-Colorectal Cancer Screening 2008 [facility]-Pneumococcal Vaccine: 50+ Years (1 of 1 - PCV) 2013 [facility]-Zoster Vaccines (1 of 2) 2013 [id number] Vaccine (5 - season) 2024 10/29/2021, 02/01/2021, 05/23/2020, Additional history exists [facility]-Influenza Vaccine (Season Ended) 2025 [facility]-RSV Vaccine: 60+ Years or (1 - 1-dose 75+ series) 2038 HPV Vaccines Aged Out No longer eligi ble based on patient's age to complete this topic [facility]-HIB Vaccines Aged Out No longer e ligible based on patient's age to complete this topic [facility]-Hepatitis A Vaccines Aged Out No longer eligible based on patient's age to complete this topic [facility]-IPV Vaccines Aged Out No longer e ligible based on patient's age to complete this topic [facility]-Rotavirus Vaccines Aged Out No lo nger eligible based on patient's age to complete this topic Insurance Care Teams Hammer Smith Relationship Specialty Start Date End Date Santosh Briones MD [address] [place] [address] PCP - General 12/31/21
--- OUTSIDE RECORDS SUMMARY | 2024-10-21 09:23 | XMS_ITS | CCD ---
Author Name [employer] Address [address] [place] [address] [place] [address] Oncology an d Hematology Address [address] [place] [address] Care Team Providers Care Clothes Ironer Name Role Phone Fuentes Crawley Unavailable Unavailable Reason for Visit Encounters Medications Problems Social History
--- OUTSIDE RECORDS SUMMARY | 2024-10-21 09:23 | XMS_ITS | Encounter Summary ---
Author Organization [employer] Address [address] [place] [address] Care Team Providers Care Miner Assistant Name Role Phone Santosh Santos MD Primary Care Provider [phone] Santosh Santos MD Primary Care Provider [phone] Julius Cho MD Unavailable Nader Wu MD Unavailable Karlos Islas PA-C Unavailable [phone] Encounter Details Date Type Department Care Team (Late st Contact Info) Description 07/23/2021 Transcribed Document [facility] [place] Family [place] [facility] [place] [place] [address] ProviderAle MD [address] [place] [address] Social History Tobacco Use Types Packs/Day Years Used Date Smoking Tobacco: Never Assessed Comments Unknown Sex and Gender Information Value Date Recorded Sex Assigned at Female 03/19/2022 10:49 AM SAW STRAIGHTENER Legal Sex Female 5:46 PM CDT Gender Identity Female 03/19/2022 10:49 AM SAW STRAIGHTENER Sexual Orientation Not on file documented as of this encounter Miscellaneous Notes * Cerner Conversion Note - Ale ProviderMD - 07/23/2021 3:25 PM CDT [facility] [place] [address] JANIS FIGUEREDO :1965 Visit Time:07/23/2021 Your Visit Summary Your Care Team Admitting Physician - NADER WU MD-CAR Attending Physician - NADER WU MD-CAR Primary Care Physician - SANTOSH SANTOS (REF)MATTHEW Referring Physician - NADER WU MD-CAR Your Diagnosis Chronic venous hypertension (idiopathic) with inflammation of bilateral lower extremity, Chronic venous hypertension (idiopathic) with inflammation of bilateral lower extremity Varicose veins of left lower extremity with inflammation Varicose veins of right lower extremity with inflammation These Are Your Goals No qualifying data available. Discharge Vitals Temperature 36.8 ??C Heart Rate (Monitored) 56 Respiratory Rate 42 Blood Pressure 129/83 What to do next Instructions From Your [...] 14 days. Follow-Up Appointments Follow Up with NADER WU When Comments Follow-up as instructed Bring your compression stockings. Where: [address] [place] [address] Business (1) Medications What How Much When Instructions Next [...] This Visit No Immunizations Found Education Materials Wound Infection A wound infection happens when [...] at home: Medicines ??? Take or apply lhhb-izb-fjpctwz and prescription medicines only as told by [...] cannot use soap and water, use hand treatment counselor. ? Change your bandage as told by [...] provider. Document Revised: 11/30/2018 Document Reviewed: 11/30/2018 [employer] Patient Education ?? 202 [employer] Moderate Conscious Sedation, Adult, Care After [...] eating solid foods. General instructions ??? Take iztg-afm-buqhwcu and prescription medicines only as told by [...] 08/17/2020 Document Reviewed: 03/15/2020 Elsevier Patient Education ?? 2020 [employer] Emergency Awareness and Preventative Care STROKE [...] Assistance with quitting is available by contacting 7-779-OAJSNOW. This is a free resource providing counseling, [...] This Visit (last charted value for your 07/23/2021 visit) No Laboratory or Other Results This Visit Patient Name:JANIS FIGUEREDO BILLIE I have received and understand this information and was given the opportunity to ask questions. Patient/Cementer Machine Applicator Name: Patient/Cementer Machine Applicator Signature: Relationship to Patient: Clinician/Hospital Cementer Machine Applicator Signature: Date: documented in this encounter Plan of Treatment Not on file documented as of this encounter Visit Diagnoses Not on filedocumented in this encounter Care Teams Miner Assistant Relationship Specialty Start Date End Date Santosh Santos MD [address] [facility] [place] [address] PCP - General General Internal Medicine 04/18/22 04/22/22 Santosh Santos MD [address] [facility] [place] [address] [place] [address] PCP - General General Internal Medicine 04/23/22 Julius Cho MD [address] [place] [address] Referring Physician Internal Medicine 04/23/22 [place] [address] [place] [address] [address] [place] [address] Cardiology 08/13/23 Karlos Islas PA-C [address] [place] [address], [facility] [address] [place] [address] Cardiology 11/23/23 documented as of this encounter
--- OUTSIDE RECORDS SUMMARY | 2024-10-21 09:23 | XMS_ITS | Encounter Summary ---
Author Organization [employer] Address [address] [place] [address] Care Team Providers Care Emergency Service Restorer Name Role Phone Santosh Briones MD Primary Care Provider [phone] Santosh Briones MD Primary Care Provider [phone] Julius Cho MD Unavailable Lew Ross MD Unavailable Karlos Islas PA-C Unavailable [phone] Encounter Details Date Type Department Care Team (Late st Contact Info) Description 07/22/2021 Transcribed Document [facility] [place] [facility] [place] [place] [address] ProviderAle MD [address] [place] [address] Social History Tobacco Use Types Packs/Day Years Used Date Smoking Tobacco: Never Assessed Comments Unknown Sex and Gender Information Value Date Recorded Sex Assigned at Female 03/19/2022 10:49 AM TICKETING CLERK Legal Sex Female 5:46 PM CDT Gender Identity Female 03/19/2022 10:49 AM TICKETING CLERK Sexual Orientation Not on file documented as of this encounter Miscellaneous Notes * Cerner Conversion Note - Ale ProviderMD - 07/22/2021 1:46 PM CDT Spiritual Care Assessment Entered On: 07/22/2021 14:57 EDT Performed On: 07/22/2021 14:17 EDT by ZAKI TORO General Information Initial Visit : Yes Referral Reason Comment : Advance directive Ministry Provided to : Patient, Family/Significant other Orthodox Preference : Faith ZAKI TORO P - 07/22/2021 14:56 EDT Spiritual Assessment Spiritual Assessment Comment/Summary Points : Patient declined asking for advance directive info. Provided spiritual support. Spirital Assessment Comment/Summary Report : SPIRITUAL ASSESSMENT COMMENT/SUMMARY No qualifying data available. CORTEZ ZAKI P - 07/22/2021 14:56 EDT Interventions Advance Directive Information Provided : No Spiritual and Orthodox : Spiritual/Orthodox support provided ZAKI TORO P - 07/22/2021 14:56 EDT Electronically signed by [facility] Conversion Nuclear Fuel Processing Technician Cerner at 08/22/2022 3:52 PM CDT documented in this encounter Plan of Treatment Not on file documented as of this encounter Visit Diagnoses Not on filedocumented in this encounter Care Teams Emergency Service Restorer Relationship Specialty Start Date End Date Santosh Briones MD [address] [place], [place] [id number] PCP - General General Internal Medicine 04/18/22 04/22/22 Santosh Briones MD [address] [place] [place] [address] [place] [address] PCP - General General Internal Medicine 04/23/22 Julius Cho MD [address] [address] Referring Physician Internal Medicine 04/23/22 Lew Ross MD [address] [facility] [address] [place] [address] Cardiology 08/13/23 Karlos Islas PA-C [address] [place] [address] Cardiology 11/23/23 documented as of this encounter
--- OUTSIDE RECORDS SUMMARY | 2024-10-21 09:23 | XMS_ITS | Encounter Summary ---
Author Organization [facility] [facility] [employer] Address [address] [place] [address] Care Team Providers Care Pattern Changer And Repairer Name Role Phone Santosh Briones MD Primary Care Provider [phone] Santosh Briones MD Primary Care Provider [phone] Julius Cho MD Unavailable Lew Ross MD Unavailable Karlos Islas PA-C Unavailable [phone] Encounter Details Date Type Department Care Team (Late st Contact Info) Description 07/22/2021 Transcribed Document [facility] [place] [facility] [place] [address] ProviderAle MD [address] [place] [address] Social History Tobacco Use Types Packs/Day Years Used Date Smoking Tobacco: Never Assessed Comments Unknown Sex and Gender Information Value Date Recorded Sex Assigned at Female 03/19/2022 10:49 AM KNITTED GOODS SHAPER Legal Sex Female 5:46 PM CDT Gender Identity Female 03/19/2022 10:49 AM KNITTED GOODS SHAPER Sexual Orientation Not on file documented as of this encounter Miscellaneous Notes * Cerner Conversion Note - Ale Johnson MD - 07/22/2021 4:34 PM CDT Nursing Discharge Summary Entered On: 07/22/2021 16:35 EDT Performed On: 07/22/2021 16:34 EDT by Delisa Brothers, stone trimmer Documentation Discharge Date/Time : 07/22/2021 17:40 EDT Delisa Brothers RN - 07/22/2021 17:57 EDT Patient Disposition, General : Discharge Discharge [...] Teaching Evaluation : Returns demonstration, Verbalizes understanding Delisa Brothers RN - 07/22/2021 16:34 EDT Electronically signed by [facility], [facility] Conversion Fashion Coordinator Cerner at 08/22/2022 4:09 PM CDT documented in this encounter Plan of Treatment Not on file documented as of this encounter Visit Diagnoses Not on filedocumented in this encounter Care Teams Pattern Changer And Repairer Relationship Specialty Start Date End Date Santosh Briones MD [address] [place], [place] [id number] PCP - General General Internal Medicine 04/18/22 04/22/22 Santosh Briones MD [address] [place], [place] [id number] PCP - General General Internal Medicine 04/23/22 Julius Cho MD [address] [place] [address] Referring Physician Internal Medicine 04/23/22 Lew Ross MD [address] [facility] [address] [place] [address] Cardiology 08/13/23 Karlos Islas PA-C [address] [facility], [facility] [address] [place] [address] Cardiology 11/23/23 documented as of this encounter
--- OUTSIDE RECORDS SUMMARY | 2024-10-21 09:23 | XMS_ITS | CCD ---
Author Name Interface, [id number] Address [address] [place] [address] [place] [address] Oncology an d Hematology Address [address] [place] [address] Care Team Providers Care Wafer Polishing Worker Name Role Phone Fuentes Crawley Unavailable Unavailable Reason for Visit Encounters Medications Problems Social History
--- OUTSIDE RECORDS SUMMARY | 2024-10-21 09:23 | XMS_ITS | Encounter Summary ---
Author Organization [employer] Address [address] [place] [address] Care Team Providers Care Sole Cementer Name Role Phone Santosh Briones MD Primary Care Provider [phone] Santosh Briones MD Primary Care Provider [phone] Julius Cho MD Unavailable Lew Ross MD Unavailable Karlos Islas PA-C Unavailable [phone] Encounter Details Date Type Department Care Team (Late st Contact Info) Description 07/19/2021 Transcribed Document [facility] [place] [address] ProviderAle MD [address] [place] [address] Social History Tobacco Use Types Packs/Day Years Used Date Smoking Tobacco: Never Assessed Comments Unknown Sex and Gender Information Value Date Recorded Sex Assigned at Female 03/19/2022 10:49 AM DURABLE MEDICAL EQUIPMENT TECHNICIAN Legal Sex Female 5:46 PM CDT Gender Identity Female 03/19/2022 10:49 AM DURABLE MEDICAL EQUIPMENT TECHNICIAN Sexual Orientation Not on file documented as of this encounter Miscellaneous Notes * Cerner Conversion Note - Ale Johnson MD - 07/19/2021 9:32 AM CDT Nursing Discharge Summary Entered On: 07/19/2021 9:32 EDT Performed On: 07/19/2021 9:32 EDT by FAISAL CISNEROS gis professor Documentation Discharge Date/Time : 07/19/2021 10:50 EDT Transporter Signature : FAISAL CISNEROS, RN FAISAL CISNEROS RN - 07/19/2021 9:41 EDT Patient Disposition, General : Discharge Discharge To : Home with ambulatory/outpatient follow-up Mode Of Departure, General Discharge : Private vehicle Accompanied By, Discharge : Spouse IV Discontinued : Yes Personal Belongings With Patient : Yes Discharge Instructions Reviewed With, Opportunity For Questions Given : Patient, Spouse Patient Education Completed : Yes Teaching Method : Explanation, Printed materials Teaching Evaluation : Returns demonstration, Verbalizes understanding FAISAL CISNEROS RN - 07/19/2021 9:32 EDT Electronically signed by [facility], [facility] Conversion Buffet Runner Cerner at 08/22/2022 3:59 PM CDT documented in this encounter Plan of Treatment Not on file documented as of this encounter Visit Diagnoses Not on filedocumented in this encounter Care Teams Sole Cementer Relationship Specialty Start Date End Date Santosh Briones MD [address] [place], [place] [id number] PCP - General General Internal Medicine 04/18/22 04/22/22 Santosh Briones MD [address] [place] [address] [place] [address] PCP - General General Internal Medicine 04/23/22 Julius Cho MD [address] [place] [address] Referring Physician Internal Medicine 04/23/22 Lew Ross MD [address] [facility] [address] [place] [address] Cardiology 08/13/23 Karlos Islas PA-C [address] [facility], [facility] [address] [place] [address] Cardiology 11/23/23 documented as of this encounter
--- OUTSIDE RECORDS SUMMARY | 2024-10-21 09:23 | XMS_ITS | Clinical Summary ---
Author Organization [facility] Address [address] [place] [address] Care Team Providers Care Wool Buyer Name Role Phone Santosh Briones MD Primary Care Provider [phone] Social History Tobacco Use Types Packs/Day Years Used Date Smoking Tobacco: Never Assessed Abuse Screen Answer Date Recorded Unsafe at Home or Work/School Not on file Feels Threatened by Someone? Not on file 01/2023 Does Anyone Keep You from Co ntacting Others or Doint Things Outside the Home? Not on file 02/09/2023 Physical Sign of Abuse Present Not on file 1 Housing Stability Answer Date Recorded Current Living Arrangements Not on file 01/2023 Potentially Unsafe Housing Conditions Not on rex e 02/09/2023 Family and Community Support Answer Arturo e Recorded Help with Day-to-Day Activities Not on file 02/09/2023 Lonely or Isolated Not on file 02/09/2023 Employment Answer Date Recorded Do you want help finding or keeping work or a dominik b? Not on file 02/09/2023 Disabilities Answer Date Recorded Concentrating, Remembering, or Making Decisions Difficulty Not on file 02/09/2023 Doing Errands Independently Difficulty Not on fi le 02/09/2023 Education Answer Date Recorded Help with school or training? Not on file Preferred Language Not on file 02/09/2023 Comments Unknown Sex and Gender Information Value Date Recorded Sex Assigned at Not on file Legal Sex Female 1:22 PM EDT Gender Identity Not on file Sexual Orientation Not on file Plan of Treatment Health Maintenance Due Date Last Done Comments ANNUAL PHYSICAL 1965 Annual Gynecologic Pelvic an d Breast Exam 1965 HEPATITIS C SCREENING 1965 MAMMOGRAM 2003 COLOGUARD 2008 COLON CANCER SCREENING 5 YEA R SIGMOIDOSCOPY 2008 COLONOSCOPY [address] CANCER SCREENING 2008 CT COLONOGRAPHY 2008 FECAL OCCULT BLOOD TEST 2008 FIT Testing (1 year) 2008 Pneumococcal Vaccine 50+ (1 of 1 - PCV) 2013 ZOSTER VACCINE (2 of 2) 03/20/2023 01/23/2023 COVID-19 Vaccine (5 - 2023-2 5 season) 2024 10/29/2021, 02/01/2021, 05/23/2020, Additional history exists INFLUENZA VACCINE 11/01/2024 TDAP/TD VACCINES (2 - Td or Tdap) 07/17/2032 023 Insurance MEDICARE A & B Member Subscriber Plan / Payer (Ef fective 2024-Present) Name:Janis Lorenzana Member ID:[id number] Relation to Subscriber:Self Name:Christie Lorenzanalissette Suero Subscriber ID:[id number] Payer ID:[id number] Group ID:Not on file Type:Not on file Address: [address] MEDICARE ADVANTAGE HMO NON PAR Care Teams Wool Buyer Relationship Specialty Start Date End Date Santosh Briones MD PCP - General Internal Medicine 02/27/22
--- OUTSIDE RECORDS SUMMARY | 2024-10-21 09:23 | XMS_ITS | Encounter Summary ---
Author Organization [employer] Address [address] [place] [address] Care Team Providers Care Buffing Wheel Raker Name Role Phone Santosh Santos MD Primary Care Provider [phone] Santosh Santos MD Primary Care Provider [phone] Julius Cho MD Unavailable Nader Wu MD Unavailable Karlos Islas PA-C Unavailable [phone] Encounter Details Date Type Department Care Team (Late st Contact Info) Description 07/19/2021 Transcribed Document [facility] [place] [facility] [place] [address] ProviderAle MD [address] [place] [address] Social History Tobacco Use Types Packs/Day Years Used Date Smoking Tobacco: Never Assessed Comments Unknown Sex and Gender Information Value Date Recorded Sex Assigned at Female 03/19/2022 10:49 AM 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 [address] JANIS FIGUEREDO :1965 Visit Time:07/19/2021 Your Visit Summary Your Care Team Admitting Physician - NADER WU MD-CAR Attending Physician - NADER WU MD-CAR Primary Care Physician - SANTOSH SANTOS (REF)MATTHEW Referring Physician - NADER WU MD-CAR These Are Your Goals No qualifying data available. Discharge Vitals Temperature 36.6 ??C Heart Rate (Monitored) 52 Respiratory Rate 16 Blood Pressure 121/69 What to do next Instructions From Your [...] medications., Dressing Instructions: You can remove the dressing in 24 hours[address] compression hose on immediately Follow-Up Appointments Follow Up with Return to hospital When 07/22/2021 01:00 PM EDT Where: Medications What How Much When Instructions [...] at home: Medicines ??? Take or apply [id number] and prescription medicines only as told by [...] cannot use soap and water, use hand dredge lever operator. ? Change your bandage as told by [...] provider. Document Revised: 11/30/2018 Document Reviewed: 11/30/2018 [employer] Patient Education ?? [employer]. Moderate Conscious Sedation, Adult, Care After This [...] eating solid foods. General instructions ??? Take [id number] and prescription medicines only as told by [...] provider. Document Revised: 08/17/2020 Document Reviewed: 03/15/2020 [employer] Patient Education ?? 2020 [employer] Emergency Awareness and Preventative Care STROKE [...] Assistance with quitting is available by contacting 9-784-PMGTNOW. This is a free resource providing counseling, [...] CPR? There are two easy steps: Call 9-1-1 if you see a teen or adult [...] This Visit (last charted value for your 07/19/2021 visit) No Laboratory or Other Results This Visit Patient Name:JANIS FIGUEREDO BILLIE I have received and understand this information and was given the opportunity to ask questions. Patient/Mid Level Project Manager Name: Patient/Mid Level Project Manager Signature: Relationship to Patient: Clinician/Hospital Mid Level Project Manager Signature: Date: documented in this encounter Plan of Treatment Not on file documented as of this encounter Visit Diagnoses Not on filedocumented in this encounter Care Teams Buffing Wheel Raker Relationship Specialty Start Date End Date Santosh Santos MD [address] [facility] [place] [address] PCP - General General Internal Medicine 04/18/22 04/22/22 Santosh Santos MD [address] [facility] [place] [place] [id number] PCP - General General Internal Medicine 04/23/22 Julius Cho MD [address] [place] [address] Referring Physician Internal Medicine 04/23/22 Nader Wu MD [address] [facility] [address] [place] [address] Cardiology 08/13/23 Karlos Islas PA-C [address] [place] [address] Cardiology 11/23/23 documented as of this encounter
--- OUTSIDE RECORDS SUMMARY | 2024-10-21 09:23 | XMS_ITS | Patient Health Record ---
Author Organization [facility] Billing Info Address [address] [place] [address] Care Team Providers Care Credit Reporting Clerk Name Role Phone SANTOS NI Primary Care Provider Unavailabl e Allergies Allergen (clinical drug ingredient) Drug/Non Drug Allergy documented on EMR Reaction Allergy Type Onset Date Status sulfamethoxazole / trimethoprim Bactrim Unknown Drug Allergy Active morphine Morphine Unknown Drug Allergy Active Reason For Referral No Information Medications Medication SIG (Take, Route, Frequency, Duration) Notes Start Date End Date Status Carvedilol 12.5 MG 1 tablet with food O rally Twice a day for 30 day(s) 01/27/2022 Active Zetia 10 MG 1 tablet Orally Once a day for 30 day(s) 03/10/2022 Active Atorvastatin Calcium 80 MG TAKE ONE TABL ET BY MOUTH DAILY for 30 Active Furosemide 40 MG 1 tablet Orally Once a day for 30 day(s) Active Lisinopril 20 MG 1 tablet Orally Once a day for 30 day(s) Active Eliquis 5 MG Oral for 30 Activ e Gabapentin 300 MG 1 capsule Orally Onc e a day for 30 day(s) Active Ibuprofen 600 MG 1 tablet with food o r milk as needed Orally Three times a day Active B12 5000 MCG as directed Sublingual Active Pantoprazole Sodium 20 MG 1 tablet Orall y Once a day for 30 day(s) Active Social History Tobacco Use: Social History Observation Description Date Details (start date - stop date) Never Smoker NA - NA Tobacco Status: Question Answer Notes Patient is a never smoker Plan Of Treatment No Information Insurance Providers Payer Name Payer Address Payer Phone Subscriber Number Group Number Insured Name Patient Relationship to Insured Coverage Start Date Coverage End Date [employer] PPO [employer] MAINTENA[employer]CE [employer]D [address] [place] [id number] Janis Lorenzana Self - patient is the insured 2 Medical (General) History Medical History History ICD Code Hypertension I10 Hyperlipidemia E78.5 Chronic venous insufficiency I87.2 Atrial fibrillation GERD CAD, 70% proximal left circumflex, 90% m id OM, followed medically. Left lower extremity DVT, vena caval rex ter Obesity Asthma Surgical History Surgery Date(Month/Year) Gastric bypass X2 Hernia repair X2 Cholecystectomy Breast augmentation Vena caval filter placement Hospitalization History Reason Date(Month/Year) [facility] [place]- Chest Pain
--- OUTSIDE RECORDS SUMMARY | 2024-10-21 09:23 | XMS_ITS | Encounter Summary ---
Author Organization [employer] Address [address] [place] [address] Care Team Providers Care Community Product Specialist Name Role Phone Santosh Briones MD Primary Care Provider [phone] Santosh Briones MD Primary Care Provider [phone] Julius Cho MD Unavailable Lew Ross MD Unavailable Karlos Islas PA-C Unavailable [phone] Encounter Details Date Type Department Care Team (Late st Contact Info) Description 07/22/2021 Transcribed Document [facility] Family Medicine [facility] [place] [address] ProviderAle MD [address] [place] [address] Social History Tobacco Use Types Packs/Day Years Used Date Smoking Tobacco: Never Assessed Comments Unknown Sex and Gender Information Value Date Recorded Sex Assigned at Female 03/19/2022 10:49 AM 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 General instructions ??? Take aqpg-obx-xfyjdmx and prescription medicines only as told by [...] provider. Document Revised: 08/17/2020 Document Reviewed: 03/15/2020 [employer] Patient Education ? 2020 [employer] Procedures Endovenous Ablation Endovenous ablation is a procedure that seals off an abnormally enlarged leg vein (varicose vein). This procedure uses heat from radiofrequency waves or a laser to close off the affected vein. This procedure may be done if the vein is causing pain, swelling, sores on the skin (ulcers), or skin discoloration. Closing off the vein can help reduce these symptoms by preventing the pooling of blood that causes varicose veins. Tell a health care provider about: ??? Any allergies you have. ??? All medicines you are taking, including vitamins, herbs, eye drops, creams, and drba-css-qsyjiwi medicines. ??? Any problems you or family members have had with anesthetic medicines. ??? Any blood disorders you have. ??? Any surgeries you have had. ??? Any medical conditions you have or have had. ??? Whether you are or may be . What are the risks? Generally, this is a safe procedure. However, problems may occur, including: ??? Infection. ??? Bleeding. ??? Allergic reactions to medicines. ??? Damage to other structures. ??? Numbness or tingling along the leg. This is uncommon, and it is usually temporary. ??? Vein swelling. This is usually temporary. ??? Blood clots that form in a deep vein of the leg (deep vein thrombosis, or DVT) and can travel to the lungs (pulmonary embolism, or PE). This is very rare. What happens before the procedure? Medicines Ask your health care provider about: ??? Changing or stopping your regular medicines. This is especially important if you are taking diabetes medicines or blood thinners. ??? Taking medicines such as aspirin and ibuprofen. These medicines can thin your blood. Do not take these medicines unless your health care provider tells you to take them. ??? Taking fplq-bpv-jwmelac medicines, vitamins, herbs, and supplements. Eating and drinking Follow instructions from your health care provider about eating and drinking, which may include: ??? 8 hours before the procedure ? stop eating heavy meals or foods, such as meat, fried foods, or fatty foods. ??? 6 hours before the procedure ? stop eating light meals or foods, such as toast or cereal. ??? 6 hours before the procedure ? stop drinking milk or drinks that contain milk. ??? 2 hours before the procedure ? stop drinking clear liquids. Staying hydrated Follow instructions from your health care provider about hydration, which may include: ??? Up to 2 hours before the procedure ? you may continue to drink clear liquids, such as water, clear fruit juice, black coffee, and plain tea. General instructions ??? You may have blood tests to make sure that your blood can clot normally. ??? Plan to have someone take you home from the hospital or clinic. ??? If you will be going home right after the procedure, plan to have someone with you for 24 hours. ??? Do not use any products that contain nicotine or tobacco for at least 4 weeks before the procedure. These products include cigarettes, e-cigarettes, and chewing tobacco. If you need help quitting, ask your health care provider. ??? Ask your health care provider what steps will be taken to help prevent infection. These may include: ? Removing hair at the surgery site. ? Washing skin with a germ-killing soap. What happens during the procedure? You will lie on an exam table. ??? An IV will be inserted into one of your veins. ??? You will be given: ? A medicine to help you relax (sedative). ? A medicine to numb the area (local anesthetic). ??? Your health care provider will use an imaging tool that uses sound waves (ultrasonogram) to show images of your leg veins. ??? A small incision will be made near the area that will be treated. A narrow tube (catheter) will be slipped through the incision and into the vein. ??? Small sensors (electrodes or laser fibers) will be passed through the catheter and into the vein. ??? Radiofrequency or laser energy will be sent through the sensors to burn the vein. This seals off the vein. ??? The electrodes, laser fibers, and catheter will be removed from the vein. ??? A bandage (dressing) will be placed over the incision. The procedure may vary among health care providers and hospitals. What happens after the procedure? Your blood pressure, heart rate, breathing rate, and blood oxygen level may be monitored until you leave the hospital or clinic. ??? You may have to wear compression stockings. These stockings help to prevent blood clots and reduce swelling in your legs. ??? You will be encouraged to walk around right after the procedure. ??? Do not drive for 24 hours if you were given a sedative during your procedure. Summary ??? Endovenous ablation is a procedure that seals off an abnormally enlarged leg vein (varicose vein). ??? Follow instructions from your health care provider about changing or stopping your medicines. This is especially important if you are taking diabetes medicines or blood thinners. ??? Follow instructions from your health care provider about eating and drinking before the procedure. ??? Plan to have someone take you home from the hospital or clinic. ??? After the procedure, you may have to wear compression stockings, and you will be encouraged to walk around right away. This information is not intended to replace advice given to you by your health care provider. Make sure you discuss any questions you have with your health care provider. Document Revised: 12/29/2018 Document Reviewed: 12/29/2018 [employer] Patient Education ? 2020 [employer] Endovenous Ablation, Care After This sheet gives [...] and water are not available, use hand stringing machine operator. ? Change your dressing as told by [...] health care provider. General instructions ??? Take nlov-fkj-atsifry and prescription medicines only as told by [...] 12/29/2018 Document Reviewed: 12/29/2018 Elsevier Patient Education ? 2020 [employer] documented in this encounter Plan of Treatment Not on file documented as of this encounter Visit Diagnoses Not on filedocumented in this encounter Care Teams Community Product Specialist Relationship Specialty Start Date End Date Santosh Briones MD [address] [place], [place] [id number] PCP - General General Internal Medicine 04/18/22 04/22/22 Santosh Briones MD [address] [place] [address] [place] [address] PCP - General General Internal Medicine 04/23/22 Julius Cho MD [address] [place] [address] Referring Physician Internal Medicine 04/23/22 Lew Ross MD [address] [facility] [address] [place] [address] Cardiology 08/13/23 Karlos Islas PA-C [address] [facility] [place] [address] Cardiology 11/23/23 documented as of this encounter
--- OUTSIDE RECORDS SUMMARY | 2024-10-21 09:23 | XMS_ITS | Encounter Summary ---
Author Organization [employer] Address [address] [place] [address] Care Team Providers Care French Tutor Name Role Phone Santosh Santos MD Primary Care Provider [phone] Santosh Santos MD Primary Care Provider [phone] Julius Cho MD Unavailable Nader Wu MD Unavailable Karlos Islas PA-C Unavailable Encounter Details Date Type Department Care Team (Late st Contact Info) Description 07/22/[address] 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 [address] JANIS FIGUEREDO :1965 Visit Time:07/22/2021 Your Visit Summary Your Care Team Admitting [...] No qualifying data available. Discharge Vitals Temperature 37 ??C Heart Rate (Monitored) 62 Respiratory Rate 15 Blood Pressure 115/68 What to do next Instructions From Your Care Team No driving for 24 hours. Rest and relax today. No changes to your diet or current medications. Keep stocking intact, clean, and dry. Encourage ambulation. Follow-Up Appointments Follow Up with NADER WU When Comments Keep follow-up appointments as previously scheduled. Where: [address] [place] [address] Business (1) Medications What How Much [...] Visit No Immunizations Found Education Materials Endovenous Ablation Endovenous ablation is a procedure [...] including vitamins, herbs, eye drops, creams, and rzpf-eti-hjmkiwu medicines. ??? Any problems you or family [...] tells you to take them. ??? Taking wtjw-pmi-qtlfxbe medicines, vitamins, herbs, and supplements. Eating and drinking Follow instructions from your health care provider about eating and drinking, which may include: ??? 8 hours before the procedure ??? stop eating heavy meals or foods, such as meat, fried foods, or fatty foods. ??? 6 hours before the procedure ??? stop eating light meals or foods, such as toast or cereal. ??? 6 hours before the procedure ??? stop drinking milk or drinks that contain milk. ??? 2 hours before the procedure ??? stop drinking clear liquids. Staying hydrated Follow instructions from your health care provider about hydration, which may include: ??? Up to 2 hours before the procedure ??? you may continue to drink clear liquids, [...] provider. Document Revised: 12/29/2018 Document Reviewed: 12/29/2018 [employer] Patient Education ?? [employer] Endovenous Ablation, Care After This sheet [...] and water are not available, use hand mannequin molder. ? Change your dressing as told by [...] health care provider. General instructions ??? Take zexg-vci-izeqgns and prescription medicines only as told by [...] provider. Document Revised: 12/29/2018 Document Reviewed: 12/29/2018 [employer] Patient Education ?? 2020 [employer] Moderate Conscious Sedation, Adult, Care After [...] eating solid foods. General instructions ??? Take faeu-bpd-roewohk and prescription medicines only as told by [...] provider. Document Revised: 08/17/2020 Document Reviewed: 03/15/2020 [employer] Patient Education ?? 2020 [employer] Emergency Awareness and Preventative Care STROKE [...] Assistance with quitting is available by contacting 9-668-NSEF-NOW. This is a free resource providing counseling, [...] This Visit (last charted value for your 07/22/2021 visit) No Laboratory or Other Results This Visit Patient Name:JANIS FIGUEREDO I have received and understand this information and was given the opportunity to ask questions. Patient/Dictaphone Operator Name: Patient/Dictaphone Operator Signature: Relationship to Patient: Clinician/Hospital Dictaphone Operator Signature: Date: Electronically signed by Everardo, [facility] Conversion Punch Press Setter Cerner at 08/22/2022 3:43 PM CDT documented in this encounter Plan of Treatment Not on file documented as of this encounter Visit Diagnoses Not on filedocumented in this encounter Care Teams French Tutor Relationship Specialty Start Date End Date Santosh Santos MD [address] [place], [place] [id number] PCP - General General Internal Medicine 04/18/22 04/22/22 Santosh Santos MD [address] [place], [place] [id number] PCP - General General Internal Medicine 04/23/22 Julius Cho MD [address] [place] [address] Referring Physician Internal Medicine 04/23/22 Nader Wu MD [address] [facility] [address] [place] [address] Cardiology 08/13/23 Karlos Islas PA-C [address] [facility] [address] [place] [address] Cardiology 11/23/23 documented as of this encounter
--- OUTSIDE RECORDS SUMMARY | 2024-10-21 09:23 | XMS_ITS | Encounter Summary ---
Author Organization [employer] Address [address] [place] [address] Care Team Providers Care Application Support Developer Name Role Phone Santosh Briones MD Primary Care Provider [phone] Santosh Briones MD Primary Care Provider [phone] Julius Cho MD Unavailable Lew Ross MD Unavailable Karlos Islas PA-C Unavailable [phone] Encounter Details Date Type Department Care Team (Late st Contact Info) Description 12/14/2020 Transcribed Document [facility] Family Medicine [facility] [place] [address] ProviderAle MD [address] [place] [address] Social History Tobacco Use Types Packs/Day Years Used Date Smoking Tobacco: Never Assessed Comments Unknown Sex and Gender Information Value Date Recorded Sex Assigned at Female 03/19/2022 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 Sex Female 5:46 PM CDT Gender Identity Female 03/19/2022 10:49 AM 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 SALES MANAGER Sexual Orientation Not on file documented as of this encounter Miscellaneous Notes * Cerner Conversion Note - Ale Johnson MD - 12/14/2020 10:54 AM CDT PAT Adult Entered On: 12/14/2020 10:54 EDT Performed On: 12/14/2020 10:54 EDT by Tru Barkley, Rn Vital Measurements Temperature Source : Temporal artery scanning Temperature Mode : Fahrenheit Temperature, Fahrenheit : 97.1 Deg F Clinical Temperature, C : 36.2 Deg C Pulse Method : Palpation Pulse Source : Radial, Right Heart Rate, Apical : 58 bpm (LOW) Pulse Rhythm : Regular Respiratory Rate : 20 Breaths/Min Blood Pressure Location : Arm, right upper Blood Pressure Source : Non-Invasive BP Device Blood Pressure Position : Sitting Systolic Blood Pressure : 123 mmHg Diastolic Blood Pressure : 76 mmHg Oxygen Saturation : 100 % Oxygen Therapy Mode : Room air PETROS HERNDON RN - 12/17/2020 10:31 EDT Height and Weight, Clinical Dosing Height Source : Measured Height Entry Format : UsherBuddy Height, Feet : 5 ft(Converted to: 152 cm, 60 Inch) Height, Inches : 7 Inch(Converted to: 0 ft 7 Inch, 17.78 cm) Clinical Height : 170.18 cm Weight Source : Standing scale Weight Entry Format : UsherBuddy Clinical Dosing Weight : 116.82 kg Weight, Pounds : 257 lb Body Surface Area (BSA) : 2.25 m2 Body Mass Index : 40.3 kg/m2 (>HHI) [place] Body Weight : 61 kg PETROS HERNDON RN - 12/17/2020 10:31 EDT Health Histories Smoking Status : Never (less than 100 in lifetime; none in last 30 days) Smokeless Tobacco Status : Never Implant/Device Type, [employer] Groover and Model : breast implants IVC filter Tru Barkley Rn - 12/14/2020 10:54 EDT Social History (As Of: 12/14/2020 10:58:13 EDT) Tobacco: Never (less than 100 in [...] by Tru Barkley, Rn) Infectious Disease History Where are the test results? : In EMR Results Has the patient ever been tested for COVID-19? : Yes, Patient stated results Negative Pérez Gil Rn - 12/19/2020 6:14 EDT Date of COVID-19 test known? : Yes Date of COVID-19 Test : 12/17/2020 EDT Does patient have symptoms of COVID-19? : No COVID19 Screening : No Experiencing Infectious Disease Symptoms : No symptoms Physical contact outside [place] in the last 30 days : No Infectious Disease History : Chicken pox/Shingles, Influenza Childhood Vaccinations Comment : vaccine 04/22 and 05/24 Tuberculosis Symptoms : None PETROS HERNDON RN - 12/17/2020 10:31 EDT COVID19 PreProcedure Screening Has patient been isolated since the test : Yes Exposed to COVID19 symptoms since test? : No Pérez Gil Rn - 12/19/2020 6:14 EDT Is this an Emergent or Add on Procedure? : No Date PreProcedure COVID-19 test known? : Yes Date of PreProcedure COVID-19 : 12/17/2020 EDT PETROS HERNDON RN - 12/17/2020 10:31 EDT Anesthesia/Transfusion History Family History of Anesthesia Reaction : No prior transfusion(s) Blood Transfusion Acceptable to Patient : Yes Transfusion History : Prior anesthesia without reaction Family History of Anesthesia Reaction : None Tru Barkley Rn - 12/14/2020 10:55 EDT Functional Assessment Functional ADL Evaluation Index EBN Bathing : Independent (2) Dressing : Independent (2) Toileting : Independent (2) Transferring Bed or Chair : Independent (2) Continence : Independent (2) Feeding : Independent (2) Tru Barkley Rn - 12/14/2020 10:55 EDT ADL Index Score : 12 Tru Barkley Rn - 12/14/2020 10:55 EDT Advance Directive Patient has Advance Directive *Q : No, patient refuses Advance Directive information Tru Barkley Rn - 12/14/2020 10:55 EDT Spiritual/Cultural Needs Any Spiritual/Cultural Needs or Requests : No Tru Barkley Rn - 12/14/2020 10:55 EDT Placer Suicide Severity Rating Scale (C-SSRS) CSSRS Past Month Wish to be : No CSSRS Past Month Suicidal Thoughts : No CSSRS Lifetime Suicide Behavior : No Suicide Severity Rating Score : 0 Suicide Severity Rating : No Additional Care Required at this time Tru Barkley Rn - 12/14/2020 10:55 EDT Psychosocial History Currently in Unsafe Situation : Tru De La Fuente Rn - 12/14/2020 10:55 EDT General Info Legal Guardian : Spouse Support Person/Patient Nurse Companion : Yes Support Person/Pt Rep Name : Jose Ramon Lorenzana - Support Person/Pt Rep Contact Information : [phone] Want Family/Rep/Phys Notified of Admit : Tru De La Fuente Rn - 12/14/2020 10:55 EDT Emergency Contact #1 : Jose Ramon Lorenzana Emergency Contact #1 Emergency Contact #1 Relationship : Pérez GilViri - 12/19/2020 6:14 EDT Emergency Contact #2 : ` Emergency Contact #2 Phone Number : ` Emergency Contact #2 Relationship : ` Information Obtained From : Patient Primary Language : Malagasy Communication Barrier : None 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 : Tru De La Fuente Rn - 12/14/2020 10:55 EDT Ke Scale Ke Sensory Perception : No impairment Ke Moisture : Rarely moist Ke Activity : Walks occasionally Ke Mobility : Slightly limited Ke Nutrition : Adequate Ke Friction and Shear : No apparent problem Ke Score : 20 Tru Barkley Rn - 12/14/2020 10:55 EDT Sleep Apnea Risk Assmt BMI Greater Than 35 kg/m2 : Yes Neck Circumference Greater Than 40 cm : Yes STOP-BANG Sleep Apnea Risk Level Score : 4 PETROS HERNDON RN - 12/17/2020 10:31 EDT Hx of Obstructive Sleep Apnea Diagnosis : No Snore Loudly : No Tired, Fatigued, or Sleepy During Day : No Observed Stopping Breathing During Sleep : No Have/Are Being Treated for Hypertension : Yes Age over 50 Years Old : Yes Gender Male : Tru De La Fuente Rn - 12/14/2020 10:55 EDT documented in this encounter Plan of Treatment Not on file documented as of this encounter Visit Diagnoses Not on filedocumented in this encounter Care Teams Application Support Developer Relationship Specialty Start Date End Date Santosh Briones MD [address] [place], [place] [id number] PCP - General General Internal Medicine 04/18/22 04/22/22 Santosh Briones MD [address] [place], [place] [id number] PCP - General General Internal Medicine 04/23/22 Julius Cho MD [address] [place] [address] Referring Physician Internal Medicine 04/23/22 Lew Ross MD [address] [facility] [address] [place] [address] Cardiology 08/13/23 Karlos Islas PA-C [address] [facility] [place] [address] Cardiology 11/23/23 documented as of this encounter
--- OUTSIDE RECORDS SUMMARY | 2024-10-21 09:23 | XMS_ITS | Encounter Summary ---
Author Organization [employer] Address [address] [place] [address] Care Team Providers Care Communications Equipment Installer Name Role Phone Santosh Briones MD Primary Care Provider [phone] Santosh Briones MD Primary Care Provider [phone] Julius Cho MD Unavailable Lew Ross MD Unavailable Karlos Islas PA-C Unavailable [phone] Encounter Details Date Type Department Care Team (Late st Contact Info) Description 07/22/2021 Transcribed Document [facility] [place] [facility] [place] [address] ProviderAle MD [address] [place] [address] Social History Tobacco Use Types Packs/Day Years Used Date Smoking Tobacco: Never Assessed Comments Unknown Sex and Gender Information Value Date Recorded Sex Assigned at Female 03/19/2022 10:49 AM [employer] Legal Sex Female 5:46 PM CDT Gender Identity Female 03/19/2022 10:49 AM [employer] Sexual Orientation Not on file documented as of this encounter Miscellaneous Notes * Cerner Conversion Note - Ale ProviderMD - 07/22/2021 1:41 PM CDT Pre Procedure Adult Entered On: 07/22/2021 13:46 EDT Performed On: 07/22/2021 13:41 EDT by Delisa Brothers RN Height and Weight, Clinical Dosing Height Source : Stated Height Entry Format : [place] Height, Feet : 5 ft(Converted to: 152 cm, 60 Inch) Height, Inches : 7 Inch(Converted to: 0 ft 7 Inch, 17.78 cm) Clinical Height : 170.18 cm Weight Source : Standing scale Weight Entry Format : [place] Clinical Dosing Weight : 126.82 kg Weight, Pounds : 279 lb Body Surface Area (BSA) : 2.33 m2 Body Mass Index : 43.8 kg/m2 (>HHI) [place] Body Weight : 61 kg Delisa Brothers RN - 07/22/2021 13:41 EDT Health Histories Smoking Status : Never (less than 100 in lifetime; none in last 30 days) Smokeless Tobacco Status : Never 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/Device 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, 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 : Yes Physical contact outside [place] in the last 30 days : No Hospitalized in Foreign Country : No Infectious Disease History : Chicken pox/Shingles, Influenza INF Disease TB Screening Calc : 0 INF Disease Recent Travel Calc : 0 Delisa Brothers RN - 07/22/2021 13:41 EDT COVID19 PreProcedure Screening Is this an Emergent or Add on Procedure? : No Date PreProcedure COVID-19 test known? : No Has patient been isolated since the test : N/A - PreProcedure, in-person visit Exposed to COVID19 symptoms since test? : N/A - PreProcedure, in-person visit Delisa Brothers RN - 07/22/2021 13:41 EDT Anesthesia/Transfusion History Family History of Anesthesia Reaction : No prior transfusion(s) Blood Transfusion Acceptable to Patient : Yes Transfusion History : Prior anesthesia without reaction Family History of Anesthesia Reaction : None Intubation History : Unknown Delisa Brothers RN - 07/22/2021 13:41 EDT Functional Assessment Living Situation : Home Persons Assisting Patient at Home : Alone Current Daily Living Assistance : None Sensory Deficits : None Mobility Assistance Prior to Admission : Independent SANCHEZ Hx Falls Immediate/Within 3 Months : No Current Home Treatments : None Home Equipment : None Delisa Brothers RN - 07/22/2021 13:41 EDT [place] Suicide Severity Rating Scale (C-SSRS) CSSRS Past Month Wish to be : No CSSRS Past Month Suicidal Thoughts : No CSSRS Lifetime Suicide Behavior : No Suicide Severity Rating Score : 0 Suicide Severity Rating : No Additional Care Required at this time Delisa Brothers RN - 07/22/2021 13:41 EDT Psychosocial History Do You Have a History of the Following? : Patient denies history Currently in Unsafe Situation : No Delisa Brothers RN - 07/22/2021 13:41 EDT Advance Directive Patient has Advance Directive *Q : No, patient requests assist formulating Advance Directive Delisa Brothers RN - 07/22/2021 13:41 EDT Spiritual/Cultural Needs Scientologist Preference : Uatsdin Delisa Brothers RN - 07/22/2021 13:41 EDT Teaching/Learning Assessment Barriers To Learning : None evident Individuals Taught : Patient, Parent Readiness to Learn : Cooperative Readiness to Learn : Explanation Delisa Brothers RN - 07/22/2021 13:41 EDT Education Topics, Periop Preadmission Perioperative Education Grid Arrival Time/Place : Verbalizes understanding CAUTI : Verbalizes understanding Central Lines : Verbalizes understanding CHG Preoperative Bathing/Cloths : Verbalizes understanding Falls : Verbalizes understanding Incentive Spirometry : Verbalizes understanding Infection Control : Verbalizes understanding IV's : Verbalizes understanding NPO Status/Directions : Verbalizes understanding Pain Management : Verbalizes understanding Postoperative Care Preparations : Verbalizes understanding Preprocedure Preparations : Verbalizes understanding Preprocedure Tests/Labs : Verbalizes understanding Remove Body Piercings : Verbalizes understanding Responsible Adult : Verbalizes understanding SNE's : Verbalizes understanding Take/Hold Medications Pre-Procedure : Verbalizes understanding Other : Verbalizes understanding Delisa Brothers RN - 07/22/2021 13:41 EDT General Info Arrived From : Home Mode of Arrival on Unit : Ambulatory Legal Guardian : Mother Support Person/Patient Heart Coordinator : Yes Support Person/Pt Rep Name : Jose Ramon Lorenzana - Support Person/Pt Rep Contact Information : [phone] Want Family/Rep/Phys Notified of Admit : No Emergency Contact #1 : Lalitha Lorenzana Emergency Contact #1 Emergency Contact #1 Relationship : [id number] Emergency Contact #2 : Gopal Jimenez Emergency Contact #2 Emergency Contact #2 Relationship : Brother Information Obtained From : Patient Primary Language : Togolese Preferred Communication Mode : Verbal Communication Barrier : None Unemployment Examiner Needed : No Delisa Brothers RN - 07/22/2021 13:41 EDT Vital Measurements Temperature Source : Temporal artery scanning Temperature Mode : Fahrenheit Temperature, Fahrenheit : 98.6 Deg F Clinical Temperature, C : 37 Deg C Peripheral Pulse Rate : 62 bpm Respiratory Rate : 17 Breaths/Min Systolic Blood Pressure : 125 mmHg Diastolic Blood Pressure : 61 mmHg Oxygen Saturation : 97 % Oxygen Therapy Mode : Room air Delisa Brothers RN - 07/22/2021 13:41 EDT Sleep Apnea Risk Assmt Hx of [...] Sleep Apnea Risk Level Score : 3 Delisa Brothers RN - 07/22/2021 13:41 EDT Ke Scale Ke Sensory Perception : No impairment Ke Moisture : Rarely moist Ke Activity : Walks frequently Ke Mobility : No limitation Ke Nutrition : Excellent Ke Friction and Shear : No apparent problem Ke Score : 23 Delisa Brothers RN - 07/22/2021 13:41 EDT Pain Assessment Pain Assessment : Initial assessment Pain Scale Used : 0-10 Scale Delisa Brothers RN - 07/22/2021 13:41 EDT Fall Risk Scales ABCs Fall Injury [...] Scale Risk Level : 0-24 Low Risk [place] Fall Interventions : Adequate lighting, Assistive devices within reach, Bed in low position, Call device within reach, Fall prevention handout/education per facility policy, Frequent orientation to call device, Frequent orientation to surroundings, Hourly comfort/safety rounds, Non-slip footwear, Personal items within reach, Reinforced to call for assistance before getting out of bed, Room free of clutter/spills, Upper side-rails up, Wheels locked, Wires/Cords secured Delisa Brothers RN - 07/22/2021 13:41 EDT Valuables and Belongings Valuables and Belongings : Clothing, Personal devices, Personal items, No comfort items, No jewelry, No assistive devices, No respiratory devices Clothing : Common streetwear Clothing Disposition : Bedside, With patient, Declines to send to security/safe Personal Device Disposition : Bedside, With patient, Declines to send to security/safe Personal Devices : Glasses Personal Items : Purse Personal Items Disposition : Bedside, With family Delisa Brothers RN - 07/22/2021 13:41 EDT Pain Scale Intensity : 0 Delisa Brothers RN - 07/22/2021 13:41 EDT Image 4 - Images currently included in the form version of this document have not been included in the text rendition version of the form. documented in this encounter Plan of Treatment Not on file documented as of this encounter Visit Diagnoses Not on filedocumented in this encounter Care Teams Communications Equipment Installer Relationship Specialty Start Date End Date Santosh Briones MD [address] [place], [place] [id number] PCP - General General Internal Medicine 04/18/22 04/22/22 Santosh Briones MD [address] [place], [place] [id number] PCP - General General Internal Medicine 04/23/22 Julius Cho MD [address] [place] [address] Referring Physician Internal Medicine 04/23/22 Lew Ross MD [address] [facility] [address] [place] [address] Cardiology 08/13/23 Karlos Islas PA-C [address] [facility] [place] [address] Cardiology 11/23/23 documented as of this encounter
--- OUTSIDE RECORDS SUMMARY | 2024-10-21 09:24 | XMS_ITS | Data Portability ---
Author Organization [facility] AD[facility] Address [address] [place] [id number] Care Team Providers Care Computer Analyst Name Role Phone NI SANTOS Primary Care Provider [phone] Assessment Encounter Date Assessment Date Assessment LastModified by Organization Details LastModified Time 06/25/2023 06/25/2023 The patient is a 58 year old female referred to [facility] by Dr. Felipe for management of chronic low back pain. The patient denies diabetes, and nicotine dependence. The patient takes Eliquis daily as prescribed by Dr. Felipe. The patient presents to the clinic today for establishment of care. The patient complains of lumbar pain that has been present for greater than 5 years. She notes over the last few months the pain has been exacerbated. This pain affects her daily function, ability to sleep comfortably, and ability to ambulate for more than 10 minutes at a time. She performs exercises/stretch es at home in an effort to maintain function, but this provides minimal benefit. This pain is negatively effecting her quality of life. The patient complains of axial, non-radicular low back pain, which has been persistent for greater than 3 months despite conservative treatment, including PT. Based on the history and physical exam it appears that the pain is associated with lumbar spondylosis. I think much of the pain is being generated in the facet joints. I will order a lumbar x ray to assess the overall bony architecture of the lumbar spine and degree of degenerative process. I will review this imaging prior to proceeding with interventional procedures. After a detailed discussion of treatment modalities and the respective risks/benefits, I will proceed with scheduling a bilateral lumbar medial branch block at L4-S1. If the patient receives significant (greater than 80% pain relief for at least 6 hours) benefit from the block, I will repeat based on insurance, and if the patient again receives significant benefit, I will proceed with scheduling a lumbar RFA. The procedure will be fluoroscopy-guide d. * BLMBB L4-S1 * Order: Lumbar x ray * Follow Up: Post procedure I have discussed in great detail our potential treatment options which would include a rehabilitative approach to care. This program would include medication management, Physical Therapy, consideration for interventional procedures as appropriate, and lifestyle modification (diet, weight loss, exercise, smoking/tobacco cessation, holistic approach including meditation and yoga). The patient understands and agrees prior to proceeding with this plan. _ __ __ __ __ __ __ __ __ __ __ __ __ __ __ __ __ __ __ __ __ __ __ __ __ __ __ __ _ I counseled the patient extensively and informed of the risks of the procedure, including the risk of paralysis, nerve damage, respiratory arrest, arrhythmias, stroke, weakness, and infection, which although very low, could result in or disability. The patient acknowledged to me that they understand and accept these risks. RN EDUCATION Extensive coordination of care provided by RN to educate patient on upcoming procedure and to coordinate obtaining extensive incoming medical records. -------- RECORDS REVIEW: As per clinic policy, we will have the patient sign a release to obtain previous imaging and clinical notes. _ __ __ __ __ __ __ __ __ __ __ __ __ __ __ __ __ __ __ __ __ __ __ __ __ __ __ __ _ PSYCH: Pain affecting Neuro-psych behavior was discussed. Discussed about pain psychological counseling as a part of the multimodal approach to pain treatment. _ __ __ __ __ __ __ __ __ __ __ __ __ __ __ __ __ __ __ __ __ __ __ __ __ __ __ __ _ REHABILITATION: Discussed with the patient the importance of diet, daily physical activity and PT. Discussed with the patient the need to be scheduled for physical therapy since physical therapy will prolong the benefits of the procedure and interventions. _ __ __ __ __ __ __ __ __ __ __ __ __ __ __ __ __ __ __ __ __ __ __ __ __ __ __ __ _ ALEIDA: [id number] I have reviewed patient's ALEIDA report prior to prescribing Schedule II, III, and IV medications that require review by law. [email or web address] Not available 06/25/2023 12:07:47 Plan of Treatment Reminders Order Date Submit Date Provider Last Modified By Organization Details Last Modified Time Details Appointments None recorded. Lab None recorded. Referral None recorded. Procedures medial branch block, lumbar (PROC) - 20716, 22314; Bilateral L4-S1 2023 024 [email or web address] Cuco Fajardo MD, [address], [place], [address], 4 11:27:19 Surgeries None recorded. Imaging XR, lumbar spine - Assess overall bony oim architect ure of the lumbar spine and degree of degenerat wilian process prior to intervent ional procedure s. 2023 024 courtney [facility] (Registration ), [address], [place], [address], 4 11:34:24 Medication Orders None recorded. Patient TargetsNo targets recorded. Patient InstructionsNo instructions recorded. Reason for Referral None Reported. Results Created Date Observation Date Name Description Value Unit Range Abnormal Flag Note LastModifiedBy Organization Detail LastModifiedTime 06/25/19 24 06/25/2023 lumba r spine 2 to 3V [facility] [address] [place] [address] Phone: Fax: Name: JANIS FIGUEREDO Exam Date: : 963 Age 58 Gender : F Access ion: [id number] Physic nia: CUCO BALES Facili ty: [facility] Facili ty HSV: Outpat ient Exam: LUMBAR SPINE 2 TO 3V Lumbar spine 3 VIEW HISTOR Y: Pain. FINDIN GS: Accent uated lumbar spine lordos is. Trace malinda listhe sis of L3 on L4. Chroni c anteri or wedgin g of T11, T12 and L1 verteb ral bodies with mild height loss. Remain ing lumbar spine verteb ral body height s are normal . Severe multil evel facet degene rative change s. Mild multil evel degene rative disc diseas e. IVC filter is noted. IMPRES ZOHRA: Chroni c findin gs as above. No acute bony abnorm ality. Dictat ed By: Emanuel Batres Transc ribkerri By: Emanuel Macias Transc ribed On: 10:55 AM Electr onical ly signed by: Emanuel Batres Thank you for referr SATYA CedenoA to [facility] al. Legall y authen ticate d by EMILIA GARCIA 06-25 10:55: 27 CC'ed Logic: Orderi ng Provid er: MABEL NORWOOD Attend ing Provid er: MABEL NORWOOD Admitt ing Provid er: MABEL NORWOOD [email or web address] [facility] [address] [place] [address], [place], [address], 07/06/2023 09:37:21 Result Notes None recorded. Problems Name Problem SNOMED Code Status Onset Date Resolution Date Notes Provider Name and Address Organization Details Recorded Time Hypertensive disorder 46445379 [facility] [place] [facility] [place] & [place] 4 09:19:41 Heart disease 88372236 [facility] 2023 [facility] [place] [facility] [place] & [place] 4 09:19:49 Arthritis 3782514 Active 2023 [facility] [place] [facility] [place] & [place] 4 09:19:55 Osteoporosis 43092957 Active [facility]23 [facility] - [facility] [place] & [place] 4 09:20:06 Gastroesophage al reflux disease 753749628 Active 2023 [facility] [place] [place] [facility] & [place] 4 09:20:11 Hernia repair Active 2023 [facility] [place] [place] - [facility] & [place] 4 09:20:16 Problem Notes None recorded. Procedures Surgical History Date Name Laterality Status Provider Name and Address Organization Details Recorded Time bypass of stomach completed [facility] [place] [facility] [place] 06/25/2023 09:20:59 ankle reconstruction completed [facility] [place] - [facility] - [place] & [place] 06/25/2023 09:21:11 Cholecystectomy completed [facility] [place] - [facility] & [place] 06/25/2023 09:21:18 Breast augmentation w/implt completed [facility] [place] - [facility] - [place] & [place] 06/25/2023 09:21:28 Imaging Results None recorded. Procedure Notes None recorded. Medical Equipment None Reported. Allergies Allergen ID Allergen Name Allergen Category Reaction Reaction Severity Criticality Documentation Date Start Date Code Code System Note Provider Name and Address Organization Details Recorded Time 648218 morphine medicatio n chest pain Not available Not available 06/25/2023 7052 RxNorm Danielle Beardswor th null, [place] - [facility] & [place] 4 08:56:59 550836 Bactrim medicatio n nausea Not available Not available 06/25/2023 74671 9 [facility] & [place] 4 08:57:22 Medications Name Sig Start Date Stop Date Status Note LastModified by Organization Details LastModified Time Santyl 250 unit/gram topical ointment APPLY NICKEL THICK AMOUNT TO THE AFFECTED AREA DAILY DIRECTED. 06/25 completed Not Available Not Available Not Available promethazin e-DM 6.25 mg-15 mg/5 mL oral syrup 06/25 completed Not Available Not Available Not Available atorvastati n 80 mg tablet active Not Available Not Available Not Available alendronate 70 mg tablet Take 1 tablet every week by oral route. active Not Available Not Available No t Available pantoprazol e 40 mg tablet,yari yed release active Not Available Not Available Not Available oseltamivir 75 mg capsule 06/25 completed Not Available Not Available Not Available ergocalcife rol (vitamin D2) 1,250 mcg (50,000 unit) capsule active Not Available Not Available Not Available naproxen 500 mg tablet active Not Available Not Available Not Available Eliquis 5 mg tablet TAKE 1 TABLET BY MOUTH TWICE DAILY active Not Available Not Available No t Available Vitals Date Recorded Body weight Body temperature Oxygen saturation Oxygen saturation in Arterial blood by Pulse oximetry Heart rate Systolic blood pressure Diastolic blood pressure Provider Name and Address Organization Details Last Updated DateTime 4 651589. 46 g 97.2 [degF] 96 % 96 % 60 /min 159 mm[Hg] 95 mm[Hg] [facility] P[facility] & [place] 4 08:56:10 Social History None recorded. Functional Status None recorded. Mental Status None recorded. Family History Relationship Description Onset Age of this Age Resolved Age Notes LastModified by Organization Details LastModified Time Father Disorder of endocrine system pt. added direct ly (06/24) [email or web address] Not available 06/24/2023 09:08:15 Father Heart disease pt. added direct ly (06/24) [email or web address] Not available 06/24/2023 09:08:27 Brother Disorder of endocrine system pt. added direct ly (06/24) [email or web address] Not available 06/24/2023 09:08:15 Brother Heart disease pt. added direct ly (06/24) [email or web address] Not available 06/24/2023 09:08:27 Brother Blood coagulation disorder pt. added direct ly (06/24) [email or web address] Not available 06/24/2023 09:08:36 Maternal Grandfather Disorder of endocrine system pt. added direct ly (06/24) [email or web address] Not available 06/24/2023 09:08:15 Medical History Condition Response Hernia Y Acid Reflux (GERD) Y Heart Disease Y Hypertension Y Osteoporosis Y Gynecological HistoryNo gynecological history recorded. 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 874327996 M99.53 Health Concerns Section Related Observation LastModified by Organization Detai ls LastModified Time None Recorded Concern Status LastModified by Organization Details LastModified Time None Recorded Advance Directives Directive None Recorded Payers Insurance Date Sequence Insurance Name Policy Number Policy Mcduffie Covered Member ID Mcduffie Member ID Guarantor Name 07/08/2023 1 [facility] [id number] Jose Ramon Figueredo [id number] Janis Figueredo Notes Date Note Type Note Provider Name and Address Organization Details Recorded Time text/html The patient is a 58 year old female referred to [facility] by Dr. Felipe for management of chronic low back pain. The patient denies diabetes, and nicotine dependence.The patient takes Eliquis daily as prescribed by Dr. Felipe. The patient presents to the clinic today for establishment of care. She states her pain is in the low back, left knee, and left ankle that has been present for several years. In 2021 she had a left total ankle replacement, and in 2020 she had to have spurs removed from right ankle. Onset: 5+ yearContext: Worsening over timeCharacter: Ache, Dull, Constant, ThrobLocation: Low back, LLEDuration: Constant with fluctuationsIntensity: 6/10Worse: Prolonged sitting/standing, AmbulationBetter: Rest Associated symptoms: Denies saddle anaesthesia, denies acute bowel/bladder changes, denies acute power loss. ADLs: The patient's pain interferes with daily chores, exercise, sleep, relationships, and walking. Current Pain Medications: N/APrior Pain Medications: N/ANSAIDS/OTC: Minimal benefitNon-interventional Tx: Minimal benefitPhysical Therapy: Minimal benefit/home exerciseInterventional Tx: N/ASurgery:Imaging/Studies : Left knee MRI Cuco Fajardo MD [address] [facility], [place], [address], [facility] - [facility] & [place] 07/01/2023 11:45:50 OBGyn Episode No OBEpisode recorded.
--- NOTE | 2024-10-21 09:30 | XR_ITS ---
FINAL REPORT TECHNIQUE: Bone densitometry calculations of the lumbar spine and bilateral hips were obtained. CLINICAL HISTORY: osteoporosis COMPARISON: None FINDINGS: Using L1-4, the bone mineral density of the spine is 1.104 g/cm2, corresponding to T-score of 0.5 and a Z score of 2.0. This is within the range of normal. Using the left hip, the bone mineral density of the femoral neck is 0.534 g/cm2, corresponding to a T-score of -2.8 point and a Z-score of -1.5. This is within the range of osteoporosis. Using the right hip, the bone mineral density of the femoral neck is 0.552 g/cm?, corresponding to a T-score of -2.7 and a Z-score of -1.3. This is within the range of osteoporosis. NOTE: T-score: Standard deviation compared with peak bone mass of young adult mean. *Following the recommendations of the International Society of Bone densitometry, classification of hip BMD is based on the lower of two T-scores; total hip or femoral neck. IMPRESSION: 1. Bone mineral density of the lumbar spine within the range of normal. 2. Bone mineral density of the bilateral femoral necks within the range of osteoporosis. Reviewed, Interpreted and Dictated by Smiley Bower MD Transcribed by Tiffany Crane Authenticated and [facility]
--- NOTE | 2024-10-21 09:53 | MM_ITS ---
PROCEDURE INFORMATION: Exam: MG Bilateral Screening 3D Mammography Exam date and time: 10/21/2024 9:53 AM Age: 59 years old Clinical indication: Screening examination TECHNIQUE: Imaging protocol: Bilateral Screening tomosynthesis and 2D mammography including computer-aided detection (CAD) when performed. COMPARISON: No relevant prior studies available. FINDINGS: MAMMOGRAPHY: Breast composition: The breasts are almost entirely fatty. Mass: None. Architectural distortion: None. Calcifications: No suspicious calcifications. Asymmetric density: None. Skin thickening: None. Axillary adenopathy: None. Other findings: Subpectoral saline breast implants are present. IMPRESSION: No mammographic evidence of malignancy. Annual screening is recommended unless otherwise clinically indicated. ASSESSMENT: BI-RADS 1, Negative.
--- NOTE | 2024-10-21 10:00 | US_ITS ---
PROCEDURE: US TRANSVAGINAL CLINICAL INDICATION: bleeding of unknown origin COMPARISON: No exams were available for comparison FINDINGS: Transvaginal and transabdominal sonographic images of the pelvis were obtained. UTERUS: 6.2cm x 3.6 mmx 2.7 cm anteverted with a combined endometrial thickness of 5.2mm. There is fluid within the endometrial cavity. LEFT OVARY: 2.9 cmx3.0cmx2.1cm with a volume of 9.3ml. There is a follicle in the left ovary measuring 1.4 cm x 1.4 cm x 1.8 cm RIGHT OVARY: The right ovary is not visualized either transvaginally or transabdominally. Left ovary is seen and appears normal. Doppler flow to the ovary is seen. There is no fluid in the cul-de-sac. IMPRESSION: 1. Anteverted, small uterus. The endometrium measures 5.2 mm and there is fluid in the endometrium as well as in the cervix. Suggest endometrial sampling given that the endometrial thickness is greater than 4 mm. 2. The left ovary is seen and has a follicle measuring 1.8 cm. The right ovary is not visualized. 3. No fluid in the cul-de-sac. Dictated by: Jono Graves MD 10/21/2024 14:52 Jono Graves MD in OV 10/21/2024 14:52
== END 2024-10-21 23:59 | disposition home or self-care (01) ==
LOC: RAD 09:19
PROVIDERS: PCP Internal Medicine; Visit Provider Obstetrics & Gynecology
DX: Z12.31 Encounter for screening mammogram for malignant neoplasm of breast (principal); M81.0 Age-related osteoporosis without current pathological fracture; R93.89 Abnormal findings on diagnostic imaging of other specified body structures; R92.313 Mammographic fatty tissue density, bilateral breasts; R58 Hemorrhage, not elsewhere classified
CPT/HCPCS: 76830; 77063; 77067; 77080

== ENCOUNTER 2024-11-15 12:13 | Outpatient (CLI) | payer MEDICARE, SELFPAY ==
--- OUTSIDE RECORDS SUMMARY | 2024-11-15 12:15 | XMS_ITS | Continuity of Care Document ---
Author Organization [facility]. If a dditional information is needed, contact Health Information Management at [phone] Address [address] [place] [address] Phone Care Team Providers Care Customer Account Executive Name Role Phone Unavailable Unavailable Unavailable Unavailable Unavailable Unavailable Unavailable Unavailable Unavailable Unavailable Unavailable Unavailable Unavailable Unavailable Unavailable Unavailable Unavailable Unavailable Unavailable Unavailable Unavailable Unavailable Unavailable Unavailable Unavailable Unavailable Unavailable Unavailable Unavailable Unavailable Unavailable Unavailable Unavailable Unavailable Unavailable Unavailable Unavailable Unavailable Unavailable Unavailable Unavailable Unavailable Unavailable Unavailable Unavailable Unavailable Unavailable Unavailable Unavailable Unavailable Unavailable Problems H/O: pulmonary embolus Onset:18-Jan-2022 Chalo Clark Status:Acute Pain of left forearm Onset:08-Jan-2020 Fidel KAMINSKI Status:Acute Coronary arteriosclerosis Onset:24-Nov-2019 Rebeca Akers Status:Acute Hypertensive disorder Onset:24-Nov-2019 Rebeca Akers Status:Acute Hyperlipidemia Onset:24-Nov-2019 Rebeca Akers Status:Acute Fracture of radius Onset:24-Nov-2019 Rebeca Akers Status:Acute Chest wall pain Onset:21-Feb-2019 Mazin Lugo Status:Acute Abrasion and/or friction bur n of multiple sites Onset:25-Jun-2015 Dee Johnson Status:Acute Comments:Onset Date: Laceration of lip Onset:25-Jun-2015 Dee Johnson Status:Acute Comments:Onset Date: Laceration of mouth Onset:25-Jun-2015 Dee Johnson Status:Acute Comments:Onset Date: Abdominal pain Onset:18-Mar-2015 José Miguel Suero Status:Acute Comments:Onset Date: Chest pain Onset:18-Mar-2015 Curtis Lima Status:Acute Comments:Onset Date: Chest pain Onset:18-Mar-2015 Chalo Clark Status:Acute Comments:Onset Date: [id number] Hypertensive disorder Onset:18-Mar-2015 José Miguel Suero Comments:Onset Date: Nausea and vomiting Onset:18-Mar-2015 José Miguel Cecilia Suero Status:Complete Comments:Onset Date: [id number] Deep venous thrombosis Onset:13-Feb-2015 Pineda Perkins Comments:Onset Date: [id number] Morbid obesity Onset:12-Feb-2015 Brian Suero Comments:Onset Date: Acute non-ST segment elevati on myocardial infarction Onset:12-Feb-2015 Brian Suero Status:Acute Comments:Onset Date: Atypical chest pain Onset:11-Feb-2015 Zana Bettencourt Status:Acute Comments:Onset Date: Functional Status Functional finding 11-Feb-2022 Functional finding 11-Feb-2022 Functional finding 11-Feb-2022 Functional finding 11-Feb-2022 Functional finding 17-Jan-2022 Functional finding 17-Jan-2022 Functional finding 17-Jan-2022 Functional finding 08-Jan-2020 Functional finding 08-Jan-2020 Functional finding 08-Jan-2020 Functional finding 21-Feb-2019 Functional finding 21-Feb-2019 Functional finding 21-Feb-2019 Allergies and Adverse Reactions morphine(Allergy) Onset: 11-Feb-2022 Reaction:Chest Pain Sulfamethoxazole(Allergy) Onset: 11-Feb-2022 Reaction:Vomiting trimethoprim(Allergy) Onset: 11-Feb-2022 Reaction:Vomiting Bactrim(Allergy) Morphine(Allergy) Medications Atorvastatin Calcium;80 MG O rally Once a day, 1 tablet Quantity:30 Sagealison Del Cid W Start:10-Mar-2022 Comments:80 MG Orally Once a day, 1 tablet Zetia;10 MG Orally Once a da y, 1 tablet Quantity:30 Siu Nehemias W Start:10-Mar-2022 Comments:10 MG Orally Once a day, 1 tablet carvedilol 12.5 MG Oral Tablet;12.5 MG Orally Twice a day, 1 tablet with food Quantity:60 Si Nehemias W Start:27-Jan-2022 Comments:12.5 MG Orally Twice a day, 1 tablet with food 24 HR isosorbide mononitrate 30 MG Extended Release Oral Tablet;30 MG ORAL Daily Start:17-Jan-2022 Comments:30 mg PO DAILY nitroglycerin 0.4 MG Subling ual Tablet [Nitrostat];0.4 MG Sublingual Q5M Start:17-Jan-2022 Comments:0.4 mg SUBLINGUAL Q5M As Needed for Chest Pain acetaminophen 325 MG / HYDRO codone bitartrate 5 MG Oral Tablet;1 TAB ORAL Q6H Start:24-Nov-2019 Comments:1 tab PO Q6H lidocaine 0.05 MG/MG Medicat ed Patch [Lidoderm];1 PATCH TOPICAL Daily Start:21-Feb-2019 Comments:1 patch TOPICAL DAILY 24 HR isosorbide mononitrate 30 MG Extended Release Oral Tablet;30 MG ORAL Daily Start:24-Jun-2015 Comments:30 mg PO DAILY acetaminophen 325 MG / HYDRO codone bitartrate 5 MG Oral Tablet;1 TAB ORAL Every 6 Hours as Needed Start:24-Jun-2015 Comments:1 tab PO Q6H PRN As Needed for Pain furosemide 40 MG Oral Tablet ;40 MG ORAL Daily Start:24-Jun-2015 Comments:40 mg PO DAILY Zofran;4 MG ORAL Three Times a Day As Needed Start:20-Mar-2015 Status:Aborted Comments:4 MG PO TID PRN As Needed for Nausea Lactobacillus acidophilus [Acidophilus] Capsule;1 ORAL Two Times a Day Start:20-Mar-2015 Status:Aborted Comments:1 ea PO BID Flagyl;500 MG ORAL Three Gume es a Day Start:20-Mar-2015 Status:Aborted Comments:500 MG PO TID ;750 MG ORAL Start:20-Mar-2015 Status:Aborted Comments:750 MG PO Q24 ;25 MG ORAL Two Times a Day Start:19-Mar-2015 Comments:25 mg PO BID Lopressor_[id number];12. 5 MG ORAL Two Times a Day Start:14-Feb-2015 Status:Aborted Comments:12.5 MG PO BID pantoprazole 40 MG Delayed R elease Oral Tablet;40 MG ORAL Daily Start:14-Feb-2015 Comments:40 mg PO DAILY clopidogrel;75 MG ORAL Daily Start:14-Feb-2015 Comments:75 mg PO DAILY atorvastatin calcium;40 MG O RAL Daily Start:14-Feb-2015 Comments:40 mg PO DAILY Analgesic [place];325 MG ORAL D aily Start:14-Feb-2015 Comments:325 mg PO DAILY lisinopril 40 mg tablet;40 M G ORAL Daily Start:14-Feb-2015 Comments:40 mg PO DAILY No Home Medications_NK-AOM Start:11-Feb-2015 Status:Canceled apixaban 5 MG Oral Tablet [Eliquis];5 MG Oral , Quantity:60 Jimi Mtz Comments:5 MG Oral , Furosemide 40 MG Oral Tablet ;40 MG Orally Once a day, 1 tablet Quantity:30 Jimi Mtz Comments:40 MG Orally Once a day, 1 tablet Isosorbide Mononitrate 20 MG Oral Tablet;20 MG Orally Twice a day, 1 tablet Jimi Mtz Status:Inactive Comments:20 MG Orally Twice a day, 1 tablet pantoprazole 20 MG Delayed R elease Oral Tablet;20 MG Orally Once a day, 1 tablet Quantity:30 Jimi Mtz Comments:20 MG Orally Once a day, 1 tablet Lisinopril 20 MG Oral Tablet ;20 MG Orally Once a day, 1 tablet Quantity:30 Jimi Mtz Comments:20 MG Orally Once a day, 1 tablet Ibuprofen 600 MG Oral Tablet ;600 MG Orally Three times a day, 1 tablet with food or milk as needed Jimi Mtz Comments:600 MG Orally Three times a day, 1 tablet with food or milk as needed Gabapentin;300 MG Orally Onc e a day, 1 capsule Quantity:30 Jimi Mtz Comments:300 MG Orally Once a day, 1 capsule B12;5000 MCG Sublingual , as directed Jimi Mtz Comments:5000 MCG Sublingual , as directed Social History Smoking Status Never smoked tobacco Recorded: 08-Jan-2020 Never smoked tobacco Recorded: 24-Nov-2019 Never smoked tobacco Recorded: 21-Feb-2019 Never smoked tobacco Never smoked tobacco Encounters pre-admission 20-Jan-2019 Anay Suero (Attending) Juliann pre-admission 20-Aug-2018 08:00 Juliann
--- OUTSIDE RECORDS SUMMARY | 2024-11-15 12:16 | XMS_ITS | Encounter Summary ---
Author Organization [employer] ([place], [place], [place], [place]) Address [address] [place] [address] Care Team Providers Care Tactical Deception Plans Officer Name Role Phone Santosh Briones MD Primary Care Provider [phone] Santosh Briones MD Primary Care Provider [phone] Julius Cho MD Unavailable Lew Ross MD Unavailable Karlos Islas PA-C Unavailable [phone] Encounter Details Date Type Department Care Team (Late st Contact Info) Description 07/25/2021 Transcribed Document [facility] [place] [address] [place] [address] ProviderAle MD [address] [place] [address] Social History Tobacco Use Types Packs/Day Years Used Date Smoking Tobacco: Never Assessed PRAPARE - Transportation Answer Date Re corded In the past 12 months, has l ack of transportation kept you from medical appointments or from getting medications? No 07/21/2022 Lack of Transportation (Non-Medical) Not on file 07/21/2022 Utilities Answer Date Recorded In the past 12 months, has t he electric, gas, oil, or water company threatened to shut off services in your home? No 08/17/2023 Food Insecurity Answer Date Recorded Within [...] Do you speak a language other than [place] at [facility]? No 08/17/2023 Do you want help with school or training? For example, starting or completing job training or getting a high school diploma, GED or equivalent. No 08/17/2023 Physical Activity Answer Date Recorded Number of minutes of exercise per week 0 08/17/2023 Substance Use Answer Date Recorded How many times in the past y ear have you used prescription drugs for non-medical reasons? Never 08/17/2023 How many times in the past year have you used [place] legal drugs? Never 08/17/2023 Comments Unknown Sex and Gender Information Value Date Recorded Sex Assigned at Female 03/19/2022 10:49 AM HEADHUNTER Legal Sex Female 5:46 PM CDT Gender Identity Female 03/19/2022 10:49 AM HEADHUNTER Sexual Orientation Not on file COVID-19 Exposure Response Date Recorded In the last 10 days, have yo u been in contact with someone who was confirmed or suspected to have Coronavirus/COVID-19? No / Unsure 07/17/2022 7:53 AM EDT documented as of this encounter Miscellaneous Notes * Cerner Conversion Note - Historical Provider, - 07/25/2021 12:16 PM CDT Pre Procedure Adult Entered On: 07/25/2021 12:17 EDT Performed On: 07/25/2021 12:16 EDT by Archana Teague RN Height and Weight, Clinical Dosing Height Source : Stated Height Entry Format : [place] Height, Feet : 5 ft(Converted to: 152 cm, 60 Inch) Height, Inches : 7 Inch(Converted to: 0 ft 7 Inch, 17.78 cm) Clinical Height : 170.18 cm Weight Source : Standing scale Weight Entry Format : [place] Clinical Dosing Weight : 126.82 kg Weight, Pounds : 279 lb Body Surface Area (BSA) : 2.33 m2 Body Mass Index : 43.8 kg/m2 (>HHI) [place] Body Weight : 61 kg Archana Teague RN - 07/25/2021 12:16 EDT documented in this encounter Plan of Treatment Not on file documented as of this encounter Visit Diagnoses Not on filedocumented in this encounter Care Teams Tactical Deception Plans Officer Relationship Specialty Start Date End Date Santosh Briones MD [address] [facility] [address] [place], [place] [id number] PCP - General General Internal Medicine 04/18/22 04/22/22 Santosh Briones MD [address] [facility] [address] [place], [place] [id number] PCP - General General Internal Medicine 04/23/22 Julius Cho MD [address] [place] [address] Referring Physician Internal Medicine 04/23/22 Lew Ross MD [address] [facility] [address] [place] [address] Cardiology 08/13/23 Karlos Islas PA-C [address] [place] [address] Cardiology 11/23/23 documented as of this encounter
--- OUTSIDE RECORDS SUMMARY | 2024-11-15 12:16 | XMS_ITS | Encounter Summary ---
Author Organization [employer] ([place], [place], [place], [place]) Address [address] [place] [address] Care Team Providers Care Players Club Representative Name Role Phone Santosh Briones MD Primary Care Provider [phone] Santosh Briones MD Primary Care Provider [phone] Julius Cho MD Unavailable Lew Ross MD Unavailable Karlos Islas PA-C Unavailable [phone] Encounter Details Date Type Department Care Team (Late st Contact Info) Description 08/02/2021 Transcribed Document [facility] [place] Family Medicine [address] [place] [address] ProviderAle MD [address] [place] [address] Social History Tobacco Use Types [...] Do you speak a language other than [place]ian at [facility]? No 08/17/2023 Do you want help [...] Sex Assigned at Female 03/19/2022 10:49 AM CLOTH EXAMINER MACHINE Legal Sex Female 5:46 PM CDT Gender Identity Female 03/19/2022 10:49 AM CLOTH EXAMINER MACHINE Sexual Orientation Not on file COVID-19 Exposure Response Date Recorded In the last 10 days, have yo u been in contact with someone who was confirmed or suspected to have Coronavirus/COVID-19? No / Unsure 07/17/2022 7:53 AM EDT documented as of this encounter Miscellaneous Notes * Cerner Conversion Note - Historical Provider, - 08/02/2021 9:51 AM CDT HISTORY AND PHYSICAL UPDATE Update Required: The appropriate section below MUST be completed prior to authentication. __x___UPDATE: The History and Physical performed by Dr Hackett Lin on 28-04-79 has been reviewed, patient was examined, and no change has occurred since the History and Physical was completed. OR UPDATE: The History and Physical performed by on has been reviewed and patient examined. The only significant change(s) in the patient's history or condition since the History and Physical was completed are indicated below: Significant Changes: Electronically signed by Interface, [facility] Conversion Senior Web Analyst Cerner at 08/22/2022 3:57 PM CDT documented in this encounter Plan of Treatment Not on file documented as of this encounter Visit Diagnoses Not on filedocumented in this encounter Care Teams Players Club Representative Relationship Specialty Start Date End Date Santosh Briones MD [address] [facility] [place] [address] [place] [address] PCP - General General Internal Medicine 04/18/22 04/22/22 Santosh Briones MD [address] [facility] [place] [address] [place] [address] PCP - General General Internal Medicine 04/23/22 Julius Cho MD [address] [place] [address] Referring Physician Internal Medicine 04/23/22 Lew Ross MD [address] [facility] [address] [place] [address] Cardiology 08/13/23 Karlos Islas PA-C [address] [place] [address], [facility] [address] [place] [address] Cardiology 11/23/23 documented as of this encounter
--- OUTSIDE RECORDS SUMMARY | 2024-11-15 12:16 | XMS_ITS | Encounter Summary ---
Author Organization [employer] ([place], [place], [place], [place]) Address [address] [place] [address] Care Team Providers Care Hardboard Press Operator Name Role Phone Santosh Briones MD Primary Care Provider [phone] Santosh Briones MD Primary Care Provider [phone] Julius Cho MD Unavailable Lew Ross MD Unavailable Karlos Islas PA-C Unavailable [phone] Encounter Details Date Type Department Care Team (Late st Contact Info) Description 07/25/2021 Transcribed Document [facility] [place] Family Medicine [address] [place] [address] ProviderAle MD [address] [place] [address] Social History Tobacco Use Types [...] Do you speak a language other than Polish at [facility]? No 08/17/2023 Do you want help with [...] Sex Assigned at Female 03/19/2022 10:49 AM CUPOLA LINER Legal Sex Female 5:46 PM CDT Gender Identity Female 03/19/2022 10:49 AM CUPOLA LINER Sexual Orientation Not on file COVID-19 Exposure Response Date Recorded In the last 10 days, have yo u been in contact with someone who was confirmed or suspected to have Coronavirus/COVID-19? No / Unsure 07/17/2022 7:53 AM EDT documented as of this encounter Miscellaneous Notes * Cerner Conversion Note - Historical Provider, - 07/25/2021 3:59 PM CDT Nursing Discharge Summary Entered On: 07/25/2021 16:00 EDT Performed On: 07/25/2021 15:59 EDT by Archana Teague RN Discharge Documentation Discharge Date/Time : 07/25/2021 16:55 EDT [...] - 07/25/2021 15:59 EDT Electronically signed by [facility] Conversion Fill Technician Cerner at 08/22/2022 4:06 PM CDT documented in this encounter Plan of Treatment Not on file documented as of this encounter Visit Diagnoses Not on filedocumented in this encounter Care Teams Hardboard Press Operator Relationship Specialty Start Date End Date Santosh Briones MD [address] [facility] [address] [place], [place] [id number] PCP - General General Internal Medicine 04/18/22 04/22/22 Santosh Briones MD [address] [facility] [address] [place], [place] [id number] PCP - General General Internal Medicine 04/23/22 Julius Cho MD [address] [place] [address] Referring Physician Internal Medicine 04/23/22 Lew Ross MD [address] [facility] [address] [place] [address] Cardiology 08/13/23 Karlos Islas PA-C [address] [place] [address] Cardiology 11/23/23 documented as of this encounter
--- OUTSIDE RECORDS SUMMARY | 2024-11-15 12:17 | XMS_ITS | Clinical Summary ---
Author Organization [facility] Address [address] [place] [address] Care Team Providers Care Supervisor Properties Name Role Phone Santosh Briones MD Primary Care Provider [phone] Social History Tobacco Use Types Packs/Day Years [...] 02/01/2021, 05/23/2020, Additional history exists INFLUENZA VACCINE 02/01/2025 TDAP/TD VACCINES (2 - Td or Tdap) 07/17/2032 023 Insurance MEDICARE A & B Member Subscriber Plan / Payer (Ef fective 2024-Present) Name:Janis Lornezana Member ID:[id number] Relation to Subscriber:Self Name:Christie Lorenzanalissette Suero Subscriber ID:[id number] Payer ID:[id number] Group ID:Not on file Type:Not on file Address: [id number] MEDICARE ADVANTAGE HMO NON PAR Care Teams Supervisor Properties Relationship Specialty Start Date End Date Santosh Briones MD PCP - General Internal Medicine 02/27/22
--- OUTSIDE RECORDS SUMMARY | 2024-11-15 12:17 | XMS_ITS | Encounter Summary ---
Author Organization [employer] ([place], [place], [place], [place]) Address [address] [place] [address] Care Team Providers Care Central Office Operator Supervisor Name Role Phone Santosh Briones MD Primary Care Provider [phone] Santosh Briones MD Primary Care Provider [phone] Julius Cho MD Unavailable Lew Ross MD Unavailable Karlos Islas PA-C Unavailable [phone] Encounter Details Date Type Department Care Team (Late st Contact Info) Description 07/19/2021 Transcribed Document [facility] [place] [address] [place] [address] ProviderAle MD [address] [place] [address] Social History Tobacco Use Types [...] Do you speak a language other than Chinese at [facility]? No 08/17/2023 Do you want help with [...] Sex Assigned at Female 03/19/2022 10:49 AM MATERIALS MANAGEMENT MANAGER Legal Sex Female 5:46 PM CDT Gender Identity Female 03/19/2022 10:49 AM MATERIALS MANAGEMENT MANAGER Sexual Orientation Not on file COVID-19 Exposure Response Date Recorded In the last 10 days, have yo u been in contact with someone who was confirmed or suspected to have Coronavirus/COVID-19? No / Unsure 07/17/2022 7:53 AM EDT documented as of this encounter Miscellaneous Notes * Cerner Conversion Note - Historical Provider, - 07/19/2021 9:32 AM CDT Nursing Discharge Summary Entered On: 07/19/2021 9:32 EDT Performed On: 07/19/2021 9:32 EDT by FAISAL CISNEROS RN Discharge Documentation Discharge Date/Time : 07/19/2021 10:50 EDT Transporter Signature : FAISAL CISNEROS RN FAISAL CISNEROS RN - 07/19/2021 9:41 [...] - 07/19/2021 9:32 EDT Electronically signed by [facility] Conversion Salvage Engineer Cerner at 08/22/2022 3:59 PM CDT documented in this encounter Plan of Treatment Not on file documented as of this encounter Visit Diagnoses Not on filedocumented in this encounter Care Teams Central Office Operator Supervisor Relationship Specialty Start Date End Date Santosh Briones MD [address] [place], [place] [id number] PCP - General General Internal Medicine 04/18/22 04/22/22 Santosh Briones MD [address] [facility] [facility] [address] [place], [place] [address] PCP - General General Internal Medicine 04/23/22 Julius Cho MD [address] [place] [address] Referring Physician Internal Medicine 04/23/22 Lew Ross MD [address] [facility] [address] [place] [address] Cardiology 08/13/23 Karlos Islas PA-C [address] [place] [address] Cardiology 11/23/23 documented as of this encounter
--- OUTSIDE RECORDS SUMMARY | 2024-11-15 12:17 | XMS_ITS | Encounter Summary ---
Author Organization [employer] ([place], [place], [place], [place]) Address [address] [place] [address] Care Team Providers Care Certified Control Systems Technician Name Role Phone Santosh Briones MD Primary Care Provider [phone] Santosh Briones MD Primary Care Provider [phone] Julius Cho MD Unavailable Lew Ross MD Unavailable Karlos Islas PA-C Unavailable [phone] Encounter Details Date Type Department Care Team (Late st Contact Info) Description 07/19/2021 Transcribed Document [facility] Family Medicine [address] [place] [address] ProviderAle MD [address] [place] [address] Social History Tobacco Use Types [...] Do you speak a language other than Peruvian at [facility]? No 08/17/2023 Do you want help [...] Sex Assigned at Female 03/19/2022 10:49 AM RETAIL LOSS PREVENTION SPECIALIST Legal Sex Female 5:46 PM CDT Gender Identity Female 03/19/2022 10:49 AM RETAIL LOSS PREVENTION SPECIALIST Sexual Orientation Not on file COVID-19 Exposure Response Date Recorded In the last 10 days, have yo u been in contact with someone who was confirmed or suspected to have Coronavirus/COVID-19? No / Unsure 07/17/2022 7:53 AM EDT documented as of this encounter Miscellaneous Notes * Cerner Conversion Note - Historical Provider, - 07/19/2021 6:45 AM CDT Pre Procedure Adult Entered On: 07/19/2021 6:49 EDT Performed On: 07/19/2021 6:45 EDT by FAISAL CISNEROS RN Height and Weight, Clinical Dosing Height Source : Stated Height Entry Format : [place] Height, Feet : 5 ft(Converted to: 152 cm, 60 Inch) Height, Inches : 7 Inch(Converted to: 0 ft 7 Inch, 17.78 cm) Clinical Height : 170.18 cm Weight Source : Standing scale Weight Entry Format : [place]s Clinical Dosing Weight : 127.27 kg Weight, Pounds : 280 lb Body Surface Area (BSA) : 2.33 m2 Body Mass Index : 43.9 kg/m2 (>HHI) [place] Body Weight : 61 kg FAISAL CISNEROS RN - 07/19/2021 6:45 EDT Health Histories Smoking Status : Never (less than 100 in lifetime; none in last 30 days) Smokeless Tobacco Status : Never Implant/Device Type, Mass Communications Instructor and Model : breast implants IVC filter [...] (Last Updated: 12/14/2020 10:54:16 EDT by Tru Barkley Rn) Infectious Disease History Does patient have [...] FAISAL CISNEROS RN - 07/19/2021 6:45 EDT [place] Suicide Severity Rating Scale (C-SSRS) CSSRS Past [...] : No, patient refuses Advance Directive information FAISAL CISNEROS RN - 07/19/2021 6:45 EDT Teaching/Learning [...] 07/19/2021 6:45 EDT General Info Support Person/Patient Econometrician : Yes Support Person/Pt Rep Name : Jose Ramon Lorenzana - Support Person/Pt Rep Contact Information : [phone] Want Family/Rep/Phys Notified of Admit : No Emergency Contact #1 : . Emergency Contact #1 Phone Number : . Emergency Contact #1 Relationship : . Emergency Contact #2 : . Emergency Contact #2 Phone Number : . Emergency Contact #2 Relationship : . Primary Language : Peruvian Communication Barrier : None Pyrometer Mechanic Needed : No FAISAL CISNEROS RN - [...] Scale Risk Level : 25-45 Medium Risk [place] Fall Interventions : Adequate lighting, Assistive devices within reach, Bed in low position, Personal items within reach, Reinforced to call for assistance before getting out of bed, Room free of clutter/spills FAISAL CISNEROS RN - 07/19/2021 6:45 EDT Valuables and Belongings Valuables and Belongings : Clothing Clothing : Common streetwear Clothing Disposition : Bedside, With family, Declines to send to security/safe FAISAL CISNEROS RN - 07/19/2021 6:45 EDT Electronically signed by [facility] Conversion Ice Crusher Cerner at 08/22/2022 3:45 PM CDT documented in this encounter Plan of Treatment Not on file documented as of this encounter Visit Diagnoses Not on filedocumented in this encounter Care Teams Certified Control Systems Technician Relationship Specialty Start Date End Date Santosh Briones MD [address] [place], [place] [id number] PCP - General General Internal Medicine 04/18/22 04/22/22 Santosh Briones MD [address] [place], [place] [id number] PCP - General General Internal Medicine 04/23/22 Julius Cho MD [address] [place] [address] Referring Physician Internal Medicine 04/23/22 Lwe Ross MD [address] [facility] [address] [place] [address] Cardiology 08/13/23 Karlos Islas PA-C [address] [facility] [address] [place] [address] Cardiology 11/23/23 documented as of this encounter
--- OUTSIDE RECORDS SUMMARY | 2024-11-15 12:17 | XMS_ITS | Encounter Summary ---
Author Organization [employer] ([place], [place], [place], [place]) Address [address] [place] [address] Care Team Providers Care Supervisor Bleach Plant Name Role Phone Santosh Santos MD Primary Care Provider [phone] Santosh Santos MD Primary Care Provider [phone] Julius Cho MD Unavailable Nader Wu MD Unavailable Karlos Islas PA-C Unavailable [phone] Encounter Details Date Type Department Care Team (Late st Contact Info) Description 07/22/2021 Transcribed Document [facility] Family Medicine [address] [place] [address] ProviderAle MD [address] [place] [address] Social History Tobacco Use Types [...] Do you speak a language other than Gabonese at [facility]? No 08/17/2023 Do you want help [...] Sex Assigned at Female 03/19/2022 10:49 AM AIRPORT OPERATIONS CREW MEMBER Legal Sex Female 5:46 PM CDT Gender Identity Female 03/19/2022 10:49 AM AIRPORT OPERATIONS CREW MEMBER Sexual Orientation Not on file COVID-19 Exposure Response Date Recorded In the last 10 days, have yo u been in contact with someone who was confirmed or suspected to have Coronavirus/COVID-19? No / Unsure 07/17/2022 7:53 AM EDT documented as of this encounter Miscellaneous Notes * Cerner Conversion Note - Historical Provider, - 07/22/2021 4:35 PM CDT [facility] [place] [address] JANIS FIGUEREDO :1965 Visit Time:07/22/2021 Your Visit [...] Keep follow-up appointments as previously scheduled. Where: [address] [facility] [address] [place] [address] [facility] (1) Medications What How Much When Instructions [...] including vitamins, herbs, eye drops, creams, and ensc-ifd-plmrpwq medicines. ??? Any problems you or family [...] tells you to take them. ??? Taking lwfn-bpz-sytmvbo medicines, vitamins, herbs, and supplements. Eating and [...] provider. Document Revised: 12/29/2018 Document Reviewed: 12/29/2018 [employer] Patient Education ?? 2020 [employer] Endovenous Ablation, Care After This sheet [...] and water are not available, use hand enforcement manager. ? Change your dressing as told by [...] health care provider. General instructions ??? Take zcis-xad-dxhatau and prescription medicines only as told by [...] provider. Document Revised: 12/29/2018 Document Reviewed: 12/29/2018 [employer] Patient Education ?? 202 [employer] Moderate Conscious Sedation, Adult, Care After [...] eating solid foods. General instructions ??? Take oboe-gjh-djuehcm and prescription medicines only as told by [...] provider. Document Revised: 08/17/2020 Document Reviewed: 03/15/2020 [employer] Patient Education ?? 2020 [employer] Emergency Awareness and Preventative Care STROKE [...] Assistance with quitting is available by contacting 0-869-NPDB-NOW. This is a free resource providing counseling, [...] was given the opportunity to ask questions. Patient/Casket Coverer Name: Patient/Casket Coverer Signature: Relationship to Patient: Clinician/Hospital Casket Coverer Signature: Date: documented in this encounter Plan of Treatment Not on file documented as of this encounter Visit Diagnoses Not on filedocumented in this encounter Care Teams Supervisor Bleach Plant Relationship Specialty Start Date End Date Santosh Santos MD [address] [facility] [address] [place], [place] [id number] PCP - General General Internal Medicine 04/18/22 04/22/22 Santosh Santos MD [address] [facility] [address] [place], [place] [id number] PCP - General General Internal Medicine 04/23/22 Julius Cho MD [address] [place] [address] Referring Physician Internal Medicine 04/23/22 Nader Wu MD [address] [facility] [address] [place] [address] Cardiology 08/13/23 Karlos Islas PA-C [address] [facility] [address] [place] [address] Cardiology 11/23/23 documented as of this encounter
--- OUTSIDE RECORDS SUMMARY | 2024-11-15 12:17 | XMS_ITS | CCD ---
Author Name Interface, [employer] Address [address] [place] [address] Organization [facility] Address [address] [place] [address] [address] [place] [address] Care Team Providers Care Equipment Superintendent Name Role Phone Misbah STEWART, Fuentes Unavailable Unavailable Allergies and Adverse Reactions Medication/Group Name Reaction Severity Date morphine 05/21/2022 Bactrim 05/21/2022 Reason for Visit FOLLOW UP Medications Date Name Route Dose Frequency Instructions Start Date End Date Status Atorvastatin Oral active Cyanocobalamin Oral active Furosemide Oral a ctive Nitroglycerin Sublingual active Lisinopril Oral s topped Nystatin Oral act wilian Lisinopril Oral a ctive Nirmatrelvir-Ritona vir Dose Pack 300 mg (150 mg x 2)-100 mg active Apixaban Oral act wilian Pantoprazole (Sodium) Oral Delayed Release acti ve Methocarbamol Oral active Meloxicam Oral ac tive Gabapentin Oral a ctive Hydrocodone-Acetami nophen Oral 10 mg-325 mg active Problems Diagnosis Status Date of Diagnosis Resolution Date History of deep vein thrombosis (situation) Active Anemia Active Deep vein thrombosis Active 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
--- OUTSIDE RECORDS SUMMARY | 2024-11-15 12:17 | XMS_ITS | Encounter Summary ---
Author Organization [employer] ([place], [place], [place], [place]) Address [address] [place] [address] Care Team Providers Care Fish Stringer Assembler Name Role Phone Santosh Briones MD Primary Care Provider Santosh Briones MD Primary Care Provider [phone] Julius Cho MD Unavailable Lew Ross MD Unavailable Karlos Islas PA-C Unavailable [phone] Encounter Details Date Type Department Care Team (Late st Contact Info) Description 12/19/2020 Transcribed Document [facility] [place] [facility] Family Medicine [facility] [place] [address] Ale Johnson MD [address] [place] [address] Social History Tobacco Use Types Packs/Day Years Used Date Smoking Tobacco: Never Assessed Comments Unknown Sex and Gender Information Value Date Recorded Sex Assigned at Female 03/19/2022 10:49 AM BALL TRUING MACHINE OPERATOR Legal Sex Female 5:46 PM CDT Gender Identity Female 03/19/2022 10:49 AM BALL TRUING MACHINE OPERATOR Sexual Orientation Not on file [...] activities are safe for you. ??? Take fxrg-qxl-tkrueex and prescription medicines only as told by [...] provider. Document Revised: 04/23/2018 Document Reviewed: 12/04/2017 [employer] Patient Education ? 2020 [employer] documented in this encounter Plan of Treatment Not on file documented as of this encounter Visit Diagnoses Not on filedocumented in this encounter Care Teams Fish Stringer Assembler Relationship Specialty Start Date End Date Santosh Briones MD [address] [place] [address] PCP - General General Internal Medicine 04/18/22 04/22/22 Santosh Briones MD [address] [place] [address] PCP - General General Internal Medicine 04/23/22 Julius Cho MD [address] [place] [address] Referring Physician Internal Medicine 04/23/22 Lew Ross MD [address] [facility] [address] [place] [address] Cardiology 08/13/23 Karlos Islas PA-C [address] [place] [address] [address] [place] [address] Cardiology 11/23/23 documented as of this encounter
--- OUTSIDE RECORDS SUMMARY | 2024-11-15 12:17 | XMS_ITS | Encounter Summary ---
Author Organization [employer] ([place], [place], [place], [place]) Address [address] [place] [address] Care Team Providers Care Dairy Science Teacher Name Role Phone Santosh Briones MD Primary Care Provider [phone] Santosh Briones MD Primary Care Provider [phone] Julius Cho MD Unavailable Lew Ross MD Unavailable Karlos Islas PA-C Unavailable [phone] Encounter Details Date Type Department Care Team (Late st Contact Info) Description 07/22/2021 Transcribed Document [facility] Family Medicine [address] [place] [address] ProviderAle MD [address] [place] [address] Social History Tobacco Use Types [...] Do you speak a language other than Dominican at [facility]? No 08/17/2023 Do you want help with [...] Sex Assigned at Female 03/19/2022 10:49 AM CRITICAL CARE REGISTERED NURSE Legal Sex Female 5:46 PM CDT Gender Identity Female 03/19/2022 10:49 AM CRITICAL CARE REGISTERED NURSE Sexual Orientation Not on file COVID-19 Exposure Response Date Recorded In the last 10 days, have yo u been in contact with someone who was confirmed or suspected to have Coronavirus/COVID-19? No / Unsure 07/17/2022 7:53 AM EDT documented as of this encounter Miscellaneous Notes * Cerner Conversion Note - Historical Provider, - 07/22/2021 4:34 PM CDT Patient Education [...] eating solid foods. General instructions ??? Take rxju-hpc-nhbyexk and prescription medicines only as told by [...] provider. Document Revised: 08/17/2020 Document Reviewed: 03/15/2020 [employer] Patient Education ? 2020 [employer] Procedures Endovenous Ablation Endovenous ablation is [...] including vitamins, herbs, eye drops, creams, and guqg-itu-oywyemh medicines. ??? Any problems you or family [...] tells you to take them. ??? Taking yjbn-lra-pgqeggh medicines, vitamins, herbs, and supplements. Eating and [...] provider. Document Revised: 12/29/2018 Document Reviewed: 12/29/2018 [employer] Patient Education ? 2020 [employer] Endovenous Ablation, Care After This sheet [...] and water are not available, use hand automatic die cutting machine operator. ? Change your dressing as [...] health care provider. General instructions ??? Take zjxr-zew-wncjvdl and prescription medicines only as told by [...] provider. Document Revised: 12/29/2018 Document Reviewed: 12/29/2018 [employer] Patient Education ? 2020 [employer]. documented in this encounter Plan of Treatment Not on file documented as of this encounter Visit Diagnoses Not on filedocumented in this encounter Care Teams Dairy Science Teacher Relationship Specialty Start Date End Date Santosh Briones MD [address] [facility] [address] [place], [place] [id number] PCP - General General Internal Medicine 04/18/22 04/22/22 Santosh Briones MD [address] [facility] [place] [address] PCP - General General Internal Medicine 04/23/22 Julius Cho MD [address] [place] [address] Referring Physician Internal Medicine 04/23/22 Lew Ross MD [address] [facility] [address] [place] [address] Cardiology 08/13/23 Karlos Islas PA-C [address] [place] [address] Cardiology 11/23/23 documented as of this encounter
--- OUTSIDE RECORDS SUMMARY | 2024-11-15 12:17 | XMS_ITS | Encounter Summary ---
Author Organization [employer] ([place], [place], [place], [place]) Address [address] [place] [address] Care Team Providers Care Product Marketer Name Role Phone Santosh Briones MD Primary Care Provider [phone] Santosh Briones MD Primary Care Provider [phone] Julius Cho MD Unavailable Lew Ross MD Unavailable Karlos Islas PA-C Unavailable [phone] Encounter Details Date Type Department Care Team (Late st Contact Info) Description 07/23/2021 Transcribed Document [facility] Family Medicine [address] [place] [address] ProviderAle MD [address] [place] [address] Social History Tobacco Use Types [...] Do you speak a language other than Solomon Islander at [facility]? No 08/17/2023 Do you want help with [...] Sex Assigned at Female 03/19/2022 10:49 AM RABBIT FANCIER Legal Sex Female 5:46 PM CDT Gender Identity Female 03/19/2022 10:49 AM RABBIT FANCIER Sexual Orientation Not on file COVID-19 Exposure Response Date Recorded In the last 10 days, have yo u been in contact with someone who was confirmed or suspected to have Coronavirus/COVID-19? No / Unsure 07/17/2022 7:53 AM EDT documented as of this encounter Miscellaneous Notes * Cerner Conversion Note - Historical Provider, - 07/23/2021 1:19 PM CDT Pre Procedure Adult Entered On: 07/23/2021 14:07 EDT Performed On: 07/23/2021 13:19 EDT by Lisa Prado RN Height and Weight, Clinical Dosing Height Source : Stated Height Entry Format : [place] Height, Feet : 5 ft(Converted to: 152 cm, 60 Inch) Height, Inches : 7 Inch(Converted to: 0 ft 7 Inch, 17.78 cm) Clinical Height : 170.18 cm Weight Source : Standing scale Weight Entry Format : [place] Clinical Dosing Weight : 126.82 kg Weight, Pounds : 279 lb Body Surface Area (BSA) : 2.33 m2 Body Mass Index : 43.8 kg/m2 (>HHI) [place] Body Weight : 61 kg Lisa Prado RN - 07/23/2021 13:19 EDT Health Histories Smoking Status : Never (less than 100 in lifetime; none in last 30 days) Smokeless Tobacco Status : Never Implant/Device Type, Vp Ad Products And Planning and Model : breast implants IVC filter Lisa Prado RN - 07/23/2021 13:19 EDT Social History (As Of: 07/23/2021 14:07:41 EDT) Tobacco: Never (less than 100 in lifetime) Smoking Status. Never Smokeless Tobacco Status. None Smokeless Tobacco Use History. Second Hand Smoke Exposure: Yes. (Last Updated: 12/14/2020 10:54:16 EDT by Tru Barkley Rn) Alcohol: Alcohol Use History Yes. Days/Week: 0.5. # Drinks/Day: 2. Total Drinks/Week: 1. Use in Last 12 Months: Yes. (Last Updated: 12/14/2020 10:54:16 EDT by Tru Barkley Rn) Substance Abuse: Drug Use Hx: No. [...] : None Intubation History : Unknown Lisa Pardo RN - 07/23/2021 13:19 EDT Functional Assessment Living Situation : Home Current Home Treatments : None Lisa Prado RN - 07/23/2021 13:19 EDT [place] Suicide Severity Rating Scale (C-SSRS) CSSRS Past [...] 07/23/2021 13:19 EDT General Info Support Person/Patient Business Analyst Consultant : Yes Support Person/Pt Rep Name : Jose Ramon Lorenzana - Support Person/Pt Rep Contact Information : [phone] Want Family/Rep/Phys Notified of Admit : No Emergency Contact #1 : na Emergency Contact #1 Phone Number : na Emergency Contact #1 Relationship : na Emergency Contact #2 : na Emergency Contact #2 Phone Number : na Emergency Contact #2 Relationship : na Primary Language : Solomon Islander Preferred Communication Mode : Verbal Communication Barrier : None General Laborer Needed : No Lisa Prado RN - [...] Scale Risk Level : 0-24 Low Risk [place] Fall Interventions : Adequate lighting, Assistive devices [...] on filedocumented in this encounter Care Teams Product Marketer Relationship Specialty Start Date End Date Santosh Briones MD [address] [facility] [address] [place], [place] [id number] PCP - General General Internal Medicine 04/18/22 04/22/22 Santosh Briones MD [address] [place], [place] [id number] PCP - General General Internal Medicine 04/23/22 Julius Cho MD [address] [place] [address] Referring Physician Internal Medicine 04/23/22 Lew Ross MD [address] [facility] [address] [place] [address] Cardiology 08/13/23 Karlos Islas PA-C [address] [facility] [place] [address] Cardiology 11/23/23 documented as of this encounter
--- OUTSIDE RECORDS SUMMARY | 2024-11-15 12:17 | XMS_ITS | Encounter Summary ---
Author Organization [employer] ([place], [place], [place], [place]) Address [address] [place] [address] Care Team Providers Care Intelligence Applications Name Role Phone Santosh Briones MD Primary Care Provider [phone] Santosh Briones MD Primary Care Provider [phone] Julius Cho MD Unavailable Lew Ross MD Unavailable Karlos Islas PA-C Unavailable [phone] Encounter Details Date Type Department Care Team (Late st Contact Info) Description 07/23/2021 Transcribed Document [facility] [place] [address] [place] [address] ProviderAle MD [address] [place] [address] Social History Tobacco Use Types [...] Do you speak a language other than Surinamese at [facility]? No 08/17/2023 Do you want help [...] Sex Assigned at Female 03/19/2022 10:49 AM NATURAL RESOURCE SPECIALIST Legal Sex Female 5:46 PM CDT Gender Identity Female 03/19/2022 10:49 AM NATURAL RESOURCE SPECIALIST Sexual Orientation Not on file COVID-19 Exposure Response Date Recorded In the last 10 days, have yo u been in contact with someone who was confirmed or suspected to have Coronavirus/COVID-19? No / Unsure 07/17/2022 7:53 AM EDT documented as of this encounter Miscellaneous Notes * Cerner Conversion Note - Historical Provider, - 07/23/2021 3:12 PM CDT Nursing Discharge Summary Entered On: 07/23/2021 15:12 EDT Performed On: 07/23/2021 15:12 EDT by Lisa Prado RN Discharge Documentation Discharge Date/Time : 07/23/2021 16:00 EDT [...] - 07/23/2021 15:12 EDT Electronically signed by [facility] Conversion Boiler Cleaner Cerner at 08/22/2022 3:53 PM CDT documented in this encounter Plan of Treatment Not on file documented as of this encounter Visit Diagnoses Not on filedocumented in this encounter Care Teams Intelligence Applications Relationship Specialty Start Date End Date Santosh Briones MD [address] [place], [place] [id number] PCP - General General Internal Medicine 04/18/22 04/22/22 Santosh Briones MD [address] [place] [address] PCP - General General Internal Medicine 04/23/22 Julius Cho MD [address] [place] [address] Referring Physician Internal Medicine 04/23/22 Lew Ross MD [address] [facility] [address] [place] [address] Cardiology 08/13/23 Karlos Islas PA-C [address] [place] [address] Cardiology 11/23/23 documented as of this encounter
--- OUTSIDE RECORDS SUMMARY | 2024-11-15 12:17 | XMS_ITS | Encounter Summary ---
Author Organization [employer] ([place], [place], [place], [place]) Address [address] [place] [address] Care Team Providers Care Chrome Polisher Name Role Phone Santosh Santos MD Primary Care Provider [phone] Santosh Santos MD Primary Care Provider [phone] Julius Cho MD Unavailable Nader Wu MD Unavailable Karols Islas PA-C Unavailable [phone] Encounter Details Date Type Department Care Team (Late st Contact Info) Description 07/24/2021 Transcribed Document [facility] [place] [address] [place] [address] ProviderAle MD [address] [place] [address] Social History Tobacco Use Types [...] Do you speak a language other than Turkmen at [facility]? No 08/17/2023 Do you want [...] Sex Assigned at Female 03/19/2022 10:49 AM TELLER VAULT Legal Sex Female 5:46 PM CDT Gender Identity Female 03/19/2022 10:49 AM TELLER VAULT Sexual Orientation Not on file COVID-19 Exposure Response Date Recorded In the last 10 days, have yo u been in contact with someone who was confirmed or suspected to have Coronavirus/COVID-19? No / Unsure 07/17/2022 7:53 AM EDT documented as of this encounter Miscellaneous Notes * Cerner Conversion Note - Historical Provider, - 07/24/2021 4:25 PM CDT [facility] [place], [place] [id number] JANIS FIGUEREDO :1965 Visit Time:07/24/2021 Your Visit [...] your health care provider and follow the manager aerospace's instructions that come with the stockings. ??? [...] provider. Document Revised: 08/22/2020 Document Reviewed: 08/22/2020 [employer] Patient Education ?? 2020 [employer]. Wound Infection A wound infection happens when [...] at home: Medicines ??? Take or apply lnit-kzm-wkvooxh and prescription medicines only as told by [...] cannot use soap and water, use hand terrestrial ecologist. ? Change your bandage as told by [...] provider. Document Revised: 11/30/2018 Document Reviewed: 11/30/2018 [employer] Patient Education ?? 2020 [employer] Inc. Moderate Conscious Sedation, Adult, Care After [...] eating solid foods. General instructions ??? Take hahg-dzg-zdnxgmm and prescription medicines only as told by [...] provider. Document Revised: 08/17/2020 Document Reviewed: 03/15/2020 [employer] Patient Education ?? 2020 [employer] Inc. Emergency Awareness and Preventative Care STROKE [...] Assistance with quitting is available by contacting 4-012-CYXHNOW. This is a free resource providing counseling, [...] [employer] Patient Name:JANIS FIGUEREDO BILLIE I have received and understand this information and was given the opportunity to ask questions. Patient/Gypsum Calciner Name: Patient/Gypsum Calciner Signature: Relationship to Patient: Clinician/Hospital Gypsum Calciner Signature: Date: Electronically signed by Everardo, [facility] Conversion Underlay Stitcher Cerner at 08/22/2022 3:53 PM CDT documented in this encounter Plan of Treatment Not on file documented as of this encounter Visit Diagnoses Not on filedocumented in this encounter Care Teams Chrome Polisher Relationship Specialty Start Date End Date Santosh Santos MD [address] [place], [place] [id number] PCP - General General Internal Medicine 04/18/22 04/22/22 Santosh Santos MD [address] [facility] [address] [place], [place] [id number] PCP - General General Internal Medicine 04/23/22 Julius Cho MD [address] [place] [address] Referring Physician Internal Medicine 04/23/22 Nader Wu MD [address] [facility] [address] [place] [address] Cardiology 08/13/23 Karlos Islas PA-C [address] [facility], [facility] [address] [place] [address] Cardiology 11/23/23 documented as of this encounter
--- OUTSIDE RECORDS SUMMARY | 2024-11-15 12:17 | XMS_ITS | CCD ---
Author Name Interface, S1Douqnrb lity Address [address] [place] [address] Organization [facility] Address [address] [place] [address] [address] [place] [address] Care Team Providers Care Plant Packer Name Role Phone Misbah STEWART, Fuentes Unavailable Unavailable Allergies and Adverse Reactions Medication/Group Name Reaction Severity Date morphine 05/21/2022 Bactrim 05/21/2022 Reason for Visit FOLLOW UP Medications Date Name Route Dose Frequency Instructions Start Date End Date Status Atorvastatin Oral active Cyanocobalamin Oral active Furosemide Oral a ctive Nitroglycerin Sublingual active Lisinopril Oral s topped Nystatin Oral act wilian Lisinopril Oral a ctive Apixaban Oral act wilian Nirmatrelvir-Ritona vir Dose Pack 300 mg (150 mg x 2)-100 mg active Pantoprazole (Sodium) Oral Delayed Release acti ve Methocarbamol Oral active Meloxicam Oral ac tive Gabapentin Oral a ctive Hydrocodone-Acetami nophen Oral 10 mg-325 mg active Problems Diagnosis Status Date of Diagnosis Resolution Date History of deep vein thrombosis (situation) Active Anemia Active Deep vein thrombosis Active HTN Active 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
--- OUTSIDE RECORDS SUMMARY | 2024-11-15 12:17 | XMS_ITS | Encounter Summary ---
Author Organization [employer] ([place], [place], [place], [place]) Address [address] [place] [address] Care Team Providers Care Traffic Circuit Engineer Name Role Phone Santosh Briones MD Primary Care Provider [phone] Santosh Briones MD Primary Care Provider [phone] Julius Cho MD Unavailable Lew Ross MD Unavailable Karlos Islas PA-C Unavailable [phone] Encounter Details Date Type Department Care Team (Late st Contact Info) Description 07/24/2021 Transcribed Document [facility] [place] [address] [place] [address] ProviderAle MD [address] [place] [address] Social History Tobacco Use Types [...] Do you speak a language other than Tristanian at [facility]? No 08/17/2023 Do you want help with [...] Sex Assigned at Female 03/19/2022 10:49 AM WEB PRESS OPERATOR Legal Sex Female 5:46 PM CDT Gender Identity Female 03/19/2022 10:49 AM WEB PRESS OPERATOR Sexual Orientation Not on file COVID-19 Exposure Response Date Recorded In the last 10 days, have yo u been in contact with someone who was confirmed or suspected to have Coronavirus/COVID-19? No / Unsure 07/17/2022 7:53 AM EDT documented as of this encounter Miscellaneous Notes * Cerner Conversion Note - Historical Provider, - 07/24/2021 12:43 PM CDT Pre Procedure Adult Entered On: 07/24/2021 12:47 EDT Performed On: 07/24/2021 12:[address] RN Height and Weight, Clinical Dosing Height Source : Stated Height Entry Format : [place] Height, Feet : 5 ft(Converted to: 152 cm, 60 Inch) Height, Inches : 7 Inch(Converted to: 0 ft 7 Inch, 17.78 cm) Clinical Height : 170.18 cm Weight Source : Standing scale Weight Entry Format : [place] Clinical Dosing Weight : 126.82 kg Weight, Pounds : 279 lb Body Surface Area (BSA) : 2.33 m2 Body Mass Index : 43.8 kg/m2 (>HHI) [place] Body Weight : [address] RN - 07/24/2021 12:43 EDT Health Histories Smoking Status : Never (less than 100 in lifetime; none in last 30 days) Smokeless Tobacco Status : Never Implant/Device Type, Equipment Processer Storage and Model : breast implants IVC filter [...] (3 episode per day) : NO OUSMANE LANE RN - 07/24/2021 12:43 EDT Physical contact [...] OUSMANE LANE RN - 07/24/2021 12:43 EDT [place] Suicide Severity Rating Scale (C-SSRS) CSSRS Past [...] 07/24/2021 12:43 EDT General Info Support Person/Patient Copier Field Service Technician : Yes Support Person/Pt Rep Name : Jose Ramon Lorenzana - Support Person/Pt Rep Contact Information : [phone] Want Family/Rep/Phys Notified of Admit : No Emergency Contact #1 : Gopal Jimenez Emergency Contact #1 Emergency Contact #1 Relationship : Brother Emergency Contact #2 : . Emergency Contact #2 Phone Number : . Emergency Contact #2 Relationship : . Primary Language : Tristanian Preferred Communication Mode : Verbal Communication Barrier : None Lead Generation Specialist Needed : No OUSMANE LANE RN - [...] Scale Risk Level : 0-24 Low Risk [place] Fall Interventions : Adequate lighting, Assistive devices [...] on filedocumented in this encounter Care Teams Traffic Circuit Engineer Relationship Specialty Start Date End Date Santosh Briones MD [address] [place] [address] PCP - General General Internal Medicine 04/18/22 04/22/22 Santosh Briones MD [address] [place] [address] [place] [address] PCP - General General Internal Medicine 04/23/22 Julius Cho MD [address] [place] [address] Referring Physician Internal Medicine 04/23/22 Lew Ross MD [address] [facility] [address] [place] [address] Cardiology 08/13/23 Karlos Islas PA-C [address] [place] [address] Cardiology 11/23/23 documented as of this encounter
--- OUTSIDE RECORDS SUMMARY | 2024-11-15 12:17 | XMS_ITS | Encounter Summary ---
Author Organization [employer] ([place], [place], [place], [place]) Address [address] [place] [address] Care Team Providers Care Hearing Aide Technician Name Role Phone Santosh Briones MD Primary Care Provider [phone] Santosh Briones MD Primary Care Provider Julius Cho MD Unavailable Lew Ross MD Unavailable Karlos Islas PA-C Unavailable [phone] Encounter Details Date Type Department Care Team (Late st Contact Info) Description 07/23/2021 Transcribed Document [facility] [place] [address] [place] [address] ProviderAle MD [address] [place] [address] Social History Tobacco Use Types [...] Do you speak a language other than Barbadian at [facility]? No 08/17/2023 Do you want help [...] Sex Assigned at Female 03/19/2022 10:49 AM STOREKEEPER HELPER Legal Sex Female 5:46 PM CDT Gender Identity Female 03/19/2022 10:49 AM STOREKEEPER HELPER Sexual Orientation Not on file COVID-19 Exposure Response Date Recorded In the last 10 days, have yo u been in contact with someone who was confirmed or suspected to have Coronavirus/COVID-19? No / Unsure 07/17/2022 7:53 AM EDT documented as of this encounter Miscellaneous Notes * Cerner Conversion Note - Historical Provider, - 07/23/2021 3:24 PM CDT Patient Education [...] at home: Medicines ??? Take or apply fngl-xbt-lpkoazh and prescription medicines only as told by [...] cannot use soap and water, use hand fire management specialist. ? Change your bandage as told by [...] provider. Document Revised: 11/30/2018 Document Reviewed: 11/30/2018 [employer] Patient Education ? 2020 [employer]. Pharmacology Moderate Conscious Sedation, Adult, Care [...] eating solid foods. General instructions ??? Take lusb-ebk-nufdkjp and prescription medicines only as told by [...] provider. Document Revised: 08/17/2020 Document Reviewed: 03/15/2020 [employer] Patient Education ? 2020 [employer]. documented in this encounter Plan of Treatment Not on file documented as of this encounter Visit Diagnoses Not on filedocumented in this encounter Care Teams Hearing Aide Technician Relationship Specialty Start Date End Date Santosh Briones MD [address] [facility] [address] [place], [place] [id number] PCP - General General Internal Medicine 04/18/22 04/22/22 Santosh Briones MD [address] [facility] [place] [address] PCP - General General Internal Medicine 04/23/22 Julius Cho MD [address] [place] [address] Referring Physician Internal Medicine 04/23/22 Lew Ross MD [address] [facility] [address] [place] [address] Cardiology 08/13/23 Karlos Islas PA-C [address] [facility], [facility] [address] [place] [address] Cardiology 11/23/23 documented as of this encounter
--- OUTSIDE RECORDS SUMMARY | 2024-11-15 12:17 | XMS_ITS | Encounter Summary ---
Author Organization [employer] ([place], [place], [place], [place]) Address [address] [place] [address] Care Team Providers Care Technical Sales Representative Name Role Phone Santosh Briones MD Primary Care Provider [phone] Santosh Briones MD Primary Care Provider [phone] Julius Cho MD Unavailable Lew Ross MD Unavailable Karlos Islas PA-C Unavailable [phone] Encounter Details Date Type Department Care Team (Late st Contact Info) Description 07/22/2021 Transcribed Document [facility] [place] [address] [place] [address] ProviderAle MD [address] [place] [address] Social History Tobacco Use Types [...] Do you speak a language other than Sammarinese at [facility]? No 08/17/2023 Do you want help [...] Sex Assigned at Female 03/19/2022 10:49 AM K 9 HANDLER/ DEPUTY Legal Sex Female 5:46 PM CDT Gender Identity Female 03/19/2022 10:49 AM K 9 HANDLER/ DEPUTY Sexual Orientation Not on file COVID-19 Exposure Response Date Recorded In the last 10 days, have yo u been in contact with someone who was confirmed or suspected to have Coronavirus/COVID-19? No / Unsure 07/17/2022 7:53 AM EDT documented as of this encounter Miscellaneous Notes * Cerner Conversion Note - Historical Provider, - 07/22/2021 1:41 PM CDT Pre Procedure Adult Entered On: 07/22/2021 13:46 EDT Performed On: 07/22/2021 13:41 EDT by Delisa Brothers RN Height and Weight, Clinical Dosing Height Source : Stated Height Entry Format : [place] Height, Feet : 5 ft(Converted to: 152 cm, 60 Inch) Height, Inches : 7 Inch(Converted to: 0 ft 7 Inch, 17.78 cm) Clinical Height : 170.18 cm Weight Source : Standing scale Weight Entry Format : [place] Clinical Dosing Weight : 126.82 kg Weight, Pounds : 279 lb Body Surface Area (BSA) : 2.33 m2 Body Mass Index : 43.8 kg/m2 (>HHI) [place] Body Weight : 61 kg Delisa Brothers RN - 07/22/2021 13:41 EDT Health Histories Smoking Status : Never (less than 100 in lifetime; none in last 30 days) Smokeless Tobacco Status : Never Implant/Device Type, Time Piece Repairer and Model : breast implants IVC filter Delisa Brothers RN - 07/22/2021 13:41 EDT Social History (As Of: 07/22/2021 13:46:19 EDT) Tobacco: Never (less than 100 in lifetime) Smoking Status. Never Smokeless Tobacco Status. None Smokeless Tobacco Use History. Second Hand Smoke Exposure: Yes. (Last Updated: 12/14/2020 10:54:16 EDT by Tru Barkley, Viri) Alcohol: Alcohol Use History Yes. Days/Week: 0.5. # Drinks/Day: 2. Total Drinks/Week: 1. Use in Last 12 Months: Yes. (Last Updated: 12/14/2020 10:54:16 EDT by Tru Barkley, Rn) Substance Abuse: Drug Use Hx: No. Use in Last 12 Months: No. (Last Updated: 12/14/2020 10:54:16 EDT by Tru Barkley, Viri) Infectious Disease History Does patient have symptoms [...] Delisa Brothers RN - 07/22/2021 13:41 EDT [place] Suicide Severity Rating Scale (C-SSRS) CSSRS Past [...] RN - 07/22/2021 13:41 EDT Spiritual/Cultural Needs Hoahaoism Preference : Presybeterian Delisa Brothers RN - 07/22/2021 13:41 EDT [...] Ambulatory Legal Guardian : Mother Support Person/Patient Client Professional : Yes Support Person/Pt Rep Name : Jose Ramon Lorenzana - Support Person/Pt Rep Contact Information : [phone] Want Family/Rep/Phys Notified of Admit : No Emergency Contact #1 : Lalitha Salomón Emergency Contact #1 Emergency Contact #1 Relationship : Ifhmjl-eq-aly Emergency Contact #2 : Gopal Jimenez Emergency Contact #2 Emergency Contact #2 Relationship : Brother Information Obtained From : Patient Primary Language : Sammarinese Preferred Communication Mode : Verbal Communication Barrier : None Automotive Glass Technician Needed : No Delisa Brothers RN - [...] Scale Risk Level : 0-24 Low Risk [place] Fall Interventions : Adequate lighting, Assistive devices [...] version of the form. Electronically signed by Everardo, [facility] Conversion Shale Miner Blasting Cerner at 08/22/2022 4:03 PM CDT documented in this encounter Plan of Treatment Not on file documented as of this encounter Visit Diagnoses Not on filedocumented in this encounter Care Teams Technical Sales Representative Relationship Specialty Start Date End Date Santosh Briones MD [address] [place], [place] [id number] PCP - General General Internal Medicine 04/18/22 04/22/22 Santosh Briones MD [address] [place], [place] [id number] PCP - General General Internal Medicine 04/23/22 Julius Cho MD [address] [place] [address] Referring Physician Internal Medicine 04/23/22 Lew Ross MD [address] [facility] [address] [place] [address] Cardiology 08/13/23 Karlos Islas PA-C [address] [facility], [facility] [address] [place] [address] Cardiology 11/23/23 documented as of this encounter
--- OUTSIDE RECORDS SUMMARY | 2024-11-15 12:17 | XMS_ITS | Encounter Summary ---
Author Organization [employer] ([place], [place], [place], [place]) Address [address] [place] [address] Care Team Providers Care Nursery School Teacher Name Role Phone Santosh Briones MD Primary Care Provider [phone] Santosh Briones MD Primary Care Provider [phone] Juilus Cho MD Unavailable Lew Ross MD Unavailable Karlos Islas PA-C Unavailable [phone] Encounter Details Date Type Department Care Team (Late st Contact Info) Description 12/19/2020 Transcribed Document [facility] [place] [address] ProviderAle MD [address] [place] [address] Social History Tobacco Use Types Packs/Day Years Used Date Smoking Tobacco: Never Assessed Comments Unknown Sex and Gender Information Value Date Recorded Sex Assigned at Female 03/19/2022 10:49 AM TRAUMA PROGRAM MANAGER Legal Sex Female 5:46 PM CDT Gender Identity Female 03/19/2022 10:49 AM TRAUMA PROGRAM MANAGER Sexual Orientation Not on file documented as of this encounter Miscellaneous Notes * Cerner Conversion Note - Ale ProviderMD - 12/19/2020 11:50 AM CDT [facility] [place] [address] JANIS FIGUEREDO :1965 Visit Time:12/19/2020 What [...] Comments Follow up Thursday as scheduled Where: [address] [place] [address] Medications What How Much When Instructions Next Dose acetaminophen-oxyCODONE (acetaminophen-oxyCODONE 325 mg-7.5 mg oral tablet) 1 Tablet(s) Oral Every 6 Hours as needed for for pain Pickup at [place] [address] apixaban (Eliquis 5 mg oral tablet) 1 Tablet(s) Oral Two Times A Day atorvastatin (atorvastatin 40 mg oral tablet) 1 Tablet(s) Oral Every Day cephalexin (Keflex 500 mg oral capsule) 1 Capsule(s) Oral Every 8 Hours Duration: 1 Day(s) Pickup at [place] [address] cyanocobalamin (Vitamin B12 1000 mcg oral tablet) [...] for as needed for nausea/vomiting Pickup at [place] [address] Pharmacy Information [place] [address]: [address] [place], [place] [id number] [phone] Take your medications faithfully. Do NOT skip [...] activities are safe for you. ??? Take ljts-wpm-gjjikmd and prescription medicines only as told by [...] provider. Document Revised: 04/23/2018 Document Reviewed: 12/04/2017 [employer] Patient Education ?? 2020 [employer]. Emergency Awareness and Preventative Care STROKE is [...] Assistance with quitting is available by contacting 1-619-BAJT-NOW. This is a free resource providing counseling, [...] was given the opportunity to ask questions. Patient/Agility Instructor Name: Patient/Agility Instructor Signature: Relationship to Patient: Clinician/Hospital Agility Instructor Signature: Date: documented in this encounter Plan of Treatment Not on file documented as of this encounter Visit Diagnoses Not on filedocumented in this encounter Care Teams Nursery School Teacher Relationship Specialty Start Date End Date Santosh Briones MD [address] [place] [address] [place] [address] PCP - General General Internal Medicine 04/18/22 04/22/22 Santosh Briones MD [address] [place] [address] [place] [address] PCP - General General Internal Medicine 04/23/22 Julius Cho MD [address] [place] [address] Referring Physician Internal Medicine 04/23/22 Lew Ross MD [address] [facility] [address] [place] [address] Cardiology 08/13/23 Karlos Islas PA-C [address] [facility] [address] [place] [address] Cardiology 11/23/23 documented as of this encounter
--- OUTSIDE RECORDS SUMMARY | 2024-11-15 12:17 | XMS_ITS | Encounter Summary ---
Author Organization [employer] ([place], [place], [place], [place]) Address [address] [place] [address] Care Team Providers Care Furnace Worker Name Role Phone Santosh Briones MD Primary Care Provider [phone] Santosh Briones MD Primary Care Provider [phone] Julius Cho MD Unavailable Lew Ross MD Unavailable Karlos Islas PA-C Unavailable [phone] Encounter Details Date Type Department Care Team (Late st Contact Info) Description 07/24/2021 Transcribed Document [facility] [place] [address] [place] [address] ProviderAle MD [address] [place] [address] Social History Tobacco Use Types [...] Do you speak a language other than Danish at [facility]? No 08/17/2023 Do you want help with [...] Sex Assigned at Female 03/19/2022 10:49 AM TITLE COORDINATOR Legal Sex Female 5:46 PM CDT Gender Identity Female 03/19/2022 10:49 AM TITLE COORDINATOR Sexual Orientation Not on file COVID-19 Exposure Response Date Recorded In the last 10 days, have yo u been in contact with someone who was confirmed or suspected to have Coronavirus/COVID-19? No / Unsure 07/17/2022 7:53 AM EDT documented as of this encounter Miscellaneous Notes * Cerner Conversion Note - Historical Provider, - 07/24/2021 1:18 PM CDT Nursing Discharge [...] - 07/24/2021 13:18 EDT Electronically signed by [facility] Conversion Color Room Attendant Cerner at 08/22/2022 3:57 PM CDT documented in this encounter Plan of Treatment Not on file documented as of this encounter Visit Diagnoses Not on filedocumented in this encounter Care Teams Furnace Worker Relationship Specialty Start Date End Date Santosh Briones MD [address] [facility] [place], [place] [id number] PCP - General General Internal Medicine 04/18/22 04/22/22 Santosh Briones MD [address] [facility] [address] [place], [place] [id number] PCP - General General Internal Medicine 04/23/22 Julius Cho MD [address] [place] [address] Referring Physician Internal Medicine 04/23/22 Lew Ross MD [address] [facility] [address] [place] [address] Cardiology 08/13/23 Karlos Islas PA-C [address] [place] [address] Cardiology 11/23/23 documented as of this encounter
--- OUTSIDE RECORDS SUMMARY | 2024-11-15 12:17 | XMS_ITS | Encounter Summary ---
Author Organization [employer] ([place], [place], [place], [place]) Address [address] [place] [address] Care Team Providers Care Crystal Grinder Name Role Phone Santosh Briones MD Primary Care Provider [phone] Santosh Briones MD Primary Care Provider [phone] Julius Cho MD Unavailable Lew Ross MD Unavailable Karlos Islas PA-C Unavailable [phone] Encounter Details Date Type Department Care Team (Late st Contact Info) Description 07/23/2021 Transcribed Document [facility] Family Medicine [address] [place] [address] ProviderAle MD [address] [place] [address] Social History Tobacco Use Types [...] speak a language other than [place] at [facility]? No 08/17/2023 Do you [...] Sex Assigned at Female 03/19/2022 10:49 AM BOTTLE ASSEMBLER Legal Sex Female 5:46 PM CDT Gender Identity Female 03/19/2022 10:49 AM BOTTLE ASSEMBLER Sexual Orientation Not on file COVID-19 Exposure Response Date Recorded In the last 10 days, have yo u been in contact with someone who was confirmed or suspected to have Coronavirus/COVID-19? No / Unsure 07/17/2022 7:53 AM EDT documented as of this encounter Miscellaneous Notes * Cerner Conversion Note - Historical Provider, - 07/23/2021 12:30 PM CDT Patient: JANIS FIGEUREDO Age: 56 years Sex: Female : 1965 Associated Diagnoses: None Author: Yuli Mendez, RN-ROUNDING Basic Information PCP: Santosh Briones Veterinary Practitioner: Dr. 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 hernia repair x2. Cholecystectomy (19804450). breast augmentation. Social History Social & Psychosocial [...] 12:48) 123 (JUL 23 12:48) 123 (JUL 23 12:48) DBP L 55 (JUL 23 12:48) L 55 (JUL 23 12:48) L 55 (JUL 23 12:48) SpO2 97 (JUL 23:48) 97 (JUL 23 12:48) 97 (JUL 23 [...] of motion, Normal strength. Integumentary: Warm, Dry, [place]. Neurologic: Alert, Oriented. Psychiatric: Cooperative, Appropriate mood [...] PLAN; RLE Varithena Electronically signed by Interface, [facility] Conversion Lawn Sprinkler Installer Cerner at 08/22/2022 3:47 PM CDT documented in this encounter Plan of Treatment Not on file documented as of this encounter Visit Diagnoses Not on filedocumented in this encounter Care Teams Crystal Grinder Relationship Specialty Start Date End Date Santosh Briones MD [address] [facility] [address] [place], [place] [id number] PCP - General General Internal Medicine 04/18/22 04/22/22 Santosh Briones MD [address] [facility] [place] [address] [place] [address] PCP - General General Internal Medicine 04/23/22 Julius Cho MD [address] [place] [address] Referring Physician Internal Medicine 04/23/22 Lew Ross MD [address] [facility] [address] [place] [address] Cardiology 08/13/23 Karlos Islas PA-C [address] [facility], [facility] [address] [place] [address] Cardiology 11/23/23 documented as of this encounter
--- OUTSIDE RECORDS SUMMARY | 2024-11-15 12:17 | XMS_ITS | Referral Summary ---
Author Organization [employer] ([place], [place], [place], [place]) Address [address] [place] [address] Care Team Providers Care Cuff Presser Name Role Phone Santosh Briones MD Primary Care Provider [phone] Julius Cho MD Unavailable Lew Ross MD Unavailable Karlos Islas PA-C Unavailable Allergies Active Allergy Reactions Criticality Noted Date [...] Do you speak a language other than [place] at [facility]? No 08/17/2023 Do you want help with [...] Sex Assigned at Female 03/19/2022 10:49 AM TAXICAB COORDINATOR Legal Sex Female 5:46 PM CDT Gender Identity Female 03/19/2022 10:49 AM TAXICAB COORDINATOR Sexual Orientation Not on file Last Filed [...] on file Medical Devices Implanted Type Area Funeral Home Associate Device Identifier Shelf Expiration Date Model / Serial / Lot Base Tib 18mm [id number] - [id number] Implanted:Qty : 1 on 04/23/2022 by Massimo Blake, DPM at [facility] IMPLANTS Left: Ankle ARIAS MED GRP:ARIAS MED TECH 03/13/[id number] / / [id number] Stem Mid Tib 16mm [id number] - [id number] Implanted:Qty : 2 on 04/23/2022 by Massimo Blake, DPM at [facility] IMPLANTS Left: Ankle ARIAS MED GRP:ARIAS MED TECH 03/10/[id number] / / [id number] Stem Top Tib 16mm [id number] - [id number] Implanted:Qty : 1 on 04/23/2022 by Massimo Blake, DPM at [facility] IMPLANTS Left: Ankle ARIAS MED GRP:ARIAS MED TECH 05/20/[id number] / / [id number] Cement Bone Smplx Tobra 40gm 6197-9-001 - [id number] Implanted:Qty : 3 on 04/23/2022 by Massimo Blake, DPM at [facility] IMPLANTS Left: Ankle GIUSEPPE:GIUSEPPE ORTHOPAEDICS 08/02/2023 6197-9-001 / / [id number] Tray Tib Sz4 L [id number] - [id number] Implanted:Qty : 1 on 04/23/2022 by Massimo Blake, DPM at [facility] IMPLANTS Left: Ankle ARIAS MED GRP:ARIAS MED TECH 02/20/[id number] / / [id number] Dome Inbone Talar Sulcus Sz 3 - [id number] Implanted:Qty : 1 on 04/23/2022 by Massimo Blake, DPM at [facility] IMPLANTS Left: Ankle ARIAS MED GRP:ARIAS MED TECH 10/31/2028 / / [id number] Insrt Crosslnk Poly Sz3 [id number] - [id number] Implanted:Qty : 1 on 04/23/2022 by Massimo Blake DPM at [facility] IMPLANTS Left: Ankle ARIAS MED GRP:ARIAS MED TECH 02/17/2030 [id number] / / [id number] Stem Talar 10mm [id number] - [id number] Implanted:Qty : 1 on 04/23/2022 by Massimo Blake DPM at [facility] IMPLANTS Left: Ankle ARIAS MED GRP:ARIAS MED TECH 02/16/[id number] / / [id number] Bone Putty Stimulan [facility] 620-005 - [id number] Implanted:Qty : 1 on 08/18/2023 by Massimo Blake DPM at [facility] IMPLANTS Left: Ankle BIOCOMPOSITES 03/03/2026 620-005 / / [id number] Insurance BLUE CROSS/BLUE SHIELD Advance Directives For more information, please contact: [phone] * Full Code (Latest Code Status on [...] 5:35 PM 08/18/2023 5:58 PM Care Teams Cuff Presser Relationship Specialty Start Date End Date Santosh Briones MD [address] [place], [place] [id number] PCP - General General Internal Medicine 04/23/22 Julius Cho MD [address] [place] [address] Referring Physician Internal Medicine 04/23/22 Lew Ross MD [address] [facility] [address] [place] [address] Cardiology 08/13/23 Karlos Islas PA-C [address] [place] [address] Cardiology 11/23/23
--- OUTSIDE RECORDS SUMMARY | 2024-11-15 12:17 | XMS_ITS | Encounter Summary ---
Author Organization [employer] ([place], [place], [place], [place]) Address [address] [place] [address] Care Team Providers Care Oracle Soa Architect Name Role Phone Santosh Briones MD Primary Care Provider [phone] Santosh Briones MD Primary Care Provider [phone] Julius Cho MD Unavailable Lew Ross MD Unavailable Karlos Islas PA-C Unavailable [phone] Encounter Details Date Type Department Care Team (Late st Contact Info) Description 12/19/2020 Transcribed Document [facility] Family Medicine [facility] [place] [address] Ale Johnson MD [address] [place] [address] Social History Tobacco Use Types Packs/Day Years Used Date Smoking Tobacco: Never Assessed Comments Unknown Sex and Gender Information Value Date Recorded Sex Assigned at Female 03/19/2022 10:49 AM GROUP EXERCISE CLASS INSTRUCTOR Legal Sex Female 5:46 PM CDT Gender Identity Female 03/19/2022 10:49 AM GROUP EXERCISE CLASS INSTRUCTOR Sexual Orientation Not on file documented as of this encounter Miscellaneous Notes * Cerner Conversion Note - Ale ProviderMD - 12/19/2020 8:35 AM CDT [facility] Main [place] PostOp Summary Primary Physician: MEE TUCKER, DPM-POD Finalized Date/Time: 12/19/20 12:16:40 Pt. Name: JANIS FIGUEREDO BILLIE Sands/Sex: 1965 Female Med Rec #: [id number] Physician: MEE TUCKER, DPM-POD Financial #: [id number] Pt. Type: O Room/Bed: / Admit/Disch: 12/19/20 06:32:00 - Institution: [facility] Main OR PostOp Case Times Entry 1 In PACU II 12/19/20 11:10:00 Ready for PACU II 12/19/20 12:11:00 Discharge Discharge from PACU 12/19/20 12:11:00 II Last Modified By: SIOMARA ALLEN RN 12/19/20 12:16:39 [facility] Main OR PostOp Case Times Audit 12/19/20 12:16:39 Splicing Machine Operator Automatic: [id number] Modifier: [id number] <+> 1 Ready for PACU II Discharge <+> 1 Discharge from PACU II Finalized By: SIOMARA ALLEN RN Document Signatures Signed By: SIOMARA ALLEN RN 12/19/20 12:16 Electronically signed by [facility] Conversion Manager Implementation Cerner at 08/22/2022 3:51 PM CDT documented in this encounter Plan of Treatment Not on file documented as of this encounter Visit Diagnoses Not on filedocumented in this encounter Care Teams Oracle Soa Architect Relationship Specialty Start Date End Date Santosh Briones MD [address] [facility] [address] [place], [place] [id number] PCP - General General Internal Medicine 04/18/22 04/22/22 Santosh Briones MD [address] [facility] [address] [place], [place] [address] PCP - General General Internal Medicine 04/23/22 Julius Cho MD [address] [place] [address] Referring Physician Internal Medicine 04/23/22 Lew Ross MD [address] [facility] [address] [place] [address] Cardiology 08/13/23 Karlos Islas PA-C [address] [facility], [facility] [address] [place] [address] Cardiology 11/23/23 documented as of this encounter
--- OUTSIDE RECORDS SUMMARY | 2024-11-15 12:17 | XMS_ITS | Encounter Summary ---
Author Organization [employer] ([place], [place], [place], [place]) Address [address] [place] [address] Care Team Providers Care Diet Therapist Name Role Phone Santosh Briones MD Primary Care Provider [phone] Santosh Briones MD Primary Care Provider [phone] Julius Cho MD Unavailable Lew Ross MD Unavailable Karlos Islas PA-C Unavailable [phone] Encounter Details Date Type Department Care Team (Late st Contact Info) Description 12/14/2020 Transcribed Document [facility] [place] Medicine [facility] [place] [address] Ale Johnson MD [address] [place] [address] Social History Tobacco Use Types Packs/Day Years Used Date Smoking Tobacco: Never Assessed Comments Unknown Sex and Gender Information Value Date Recorded Sex Assigned at Female 03/19/2022 10:49 AM ASSISTANT MEDIA BUYER Legal Sex Female 5:46 PM CDT Gender Identity Female 03/19/2022 10:49 AM ASSISTANT MEDIA BUYER Sexual Orientation Not on file documented as [...] Source : Measured Height Entry Format : Elizabeth Height, Feet : 5 ft(Converted to: 152 cm, 60 Inch) Height, Inches : 7 Inch(Converted to: 0 ft 7 Inch, 17.78 cm) Clinical Height : 170.18 cm Weight Source : Standing scale Weight Entry Format : Elizabeth Clinical Dosing Weight : 116.82 kg Weight, Pounds : 257 lb Body Surface Area (BSA) : 2.25 m2 Body Mass Index : 40.3 kg/m2 (>HHI) [place] Body Weight : 61 kg PETROS HERNDON RN - 12/17/2020 10:31 EDT Health Histories Smoking Status : Never (less than 100 in lifetime; none in last 30 days) Smokeless Tobacco Status : Never Implant/Device Type, Special Needs Child Caregiver and Model : breast implants IVC filter [...] : Yes, Patient stated results Negative Pérez Gli Rn - 12/19/2020 6:14 EDT Date of [...] Tru Barkley Rn - 12/14/2020 10:55 EDT [place] Suicide Severity Rating Scale (C-SSRS) CSSRS Past Month Wish to be : No CSSRS Past Month Suicidal Thoughts : No CSSRS Lifetime Suicide Behavior : No Suicide Severity Rating Score : 0 Suicide Severity Rating : No Additional Care Required at this time Tru Barkley Rn - 12/14/2020 10:55 EDT Psychosocial History Currently in Unsafe Situation : No Tru Barkley Rn - 12/14/2020 10:55 EDT General Info Legal Guardian : Spouse Support Person/Patient Material Handling Supervisor : Yes Support Person/Pt Rep Name : Jose Ramon Lorenzana - Support Person/Pt Rep Contact Information : [phone] Want Family/Rep/Phys Notified of Admit : No Tru Barkley Rn - 12/14/2020 10:55 EDT Emergency Contact #1 : Jose Ramon Lorenzana Emergency Contact #1 Emergency Contact #1 Relationship : Pérez GilViri - 12/19/2020 6:14 EDT Emergency Contact #2 : ` Emergency Contact #2 Phone Number : ` Emergency Contact #2 Relationship : ` Information Obtained From : Patient Primary Language : [place]ian Communication Barrier : None Coiler Operator Needed : No Tru Barkley Rn - 12/14/2020 10:55 EDT Ke Scale [...] on filedocumented in this encounter Care Teams Diet Therapist Relationship Specialty Start Date End Date Santosh Briones MD [address] [place], [place] [id number] PCP - General General Internal Medicine 04/18/22 04/22/22 Santosh Briones MD [address] [facility] [address] [place], [place] [address] PCP - General General Internal Medicine 04/23/22 Julius Cho MD [address] [place] [address] Referring Physician Internal Medicine 04/23/22 Lew Ross MD [address] [facility] [address] [place] [address] Cardiology 08/13/23 Karlos Islas PA-C [address] [facility], [facility] [address] [place] [address] Cardiology 11/23/23 documented as of this encounter
--- OUTSIDE RECORDS SUMMARY | 2024-11-15 12:17 | XMS_ITS | Encounter Summary ---
Author Organization [email or web address] ([place], [place], [place], [place]) Address [address] [place] [address] Care Team Providers Care Stone Polisher Name Role Phone Santosh Briones MD Primary Care Provider [phone] Santosh Briones MD Primary Care Provider [phone] Julius Cho MD Unavailable Lew Ross MD Unavailable Karlos Islas PA-C Unavailable [phone] Encounter Details Date Type Department Care Team (Late st Contact Info) Description 07/22/2021 Transcribed Document [facility] Family Medicine [address] [place] [address] ProviderAle MD [address] [place] [address] Social History Tobacco Use Types [...] Do you speak a language other than [place] at [facility]? 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 No / Unsure 07/17/2022 7:53 AM EDT documented as of this encounter Miscellaneous Notes * Cerner Conversion Note - Historical Provider, - 07/22/2021 1:46 PM CDT Spiritual Care Assessment Entered On: 07/22/2021 14:57 EDT Performed On: 07/22/2021 14:17 EDT by ZAKI TORO General Information Initial Visit : Yes Referral Reason Comment : Advance directive Ministry Provided to : Patient, Family/Significant other Nondenominational Preference : Hoahaoism ZAKI TORO - 07/22/2021 14:56 EDT Spiritual Assessment Spiritual Assessment Comment/Summary Points : Patient declined asking for advance directive info. Provided spiritual support. Spirital Assessment Comment/Summary Report : SPIRITUAL ASSESSMENT COMMENT/SUMMARY No qualifying data available. ZAKI TORO P - 07/22/2021 14:56 EDT Interventions Advance Directive Information Provided : No Spiritual and Nondenominational : Spiritual/Nondenominational support provided ZAKI TORO - 07/22/2021 14:56 EDT Electronically signed by [facility] Conversion Accounting Coordinator Cerner at 08/22/2022 3:52 PM CDT documented in this encounter Plan of Treatment Not on file documented as of this encounter Visit Diagnoses Not on filedocumented in this encounter Care Teams Stone Polisher Relationship Specialty Start Date End Date Santosh Briones MD [address] [place], [place] [id number] PCP - General General Internal Medicine 04/18/22 04/22/22 Santosh Briones MD [address] [place] [address] [place] [address] PCP - General General Internal Medicine 04/23/22 Julius Cho MD [address] [place] [address] Referring Physician Internal Medicine 04/23/22 Lew Ross MD [address] [facility] [address] [place] [address] Cardiology 08/13/23 Karlos Islas PA-C [address] [place] [address] Cardiology 11/23/23 documented as of this encounter
--- OUTSIDE RECORDS SUMMARY | 2024-11-15 12:17 | XMS_ITS | Encounter Summary ---
Author Organization [employer] ([place], [place], [place], [place]) Address [address] [place] [address] Care Team Providers Care Graphic Art Sales Representative Name Role Phone Santosh Briones MD Primary Care Provider [phone] Santosh Briones MD Primary Care Provider [phone] Julius Cho MD Unavailable Lew Ross MD Unavailable Karlos Islas PA-C Unavailable [phone] Encounter Details Date Type Department Care Team (Late st Contact Info) Description 07/24/2021 Transcribed Document [facility] [place] [address] [place] [address] ProviderAle MD [address] [place] [address] Social History Tobacco Use Types [...] Do you speak a language other than [place] at [facility]? No 08/17/2023 Do you want help [...] Sex Assigned at Female 03/19/2022 10:49 AM PROFESSOR OF VIOLIN Legal Sex Female 5:46 PM CDT Gender Identity Female 03/19/2022 10:49 AM PROFESSOR OF VIOLIN Sexual Orientation Not on file COVID-19 Exposure Response Date Recorded In the last 10 days, have yo u been in contact with someone who was confirmed or suspected to have Coronavirus/COVID-19? No / Unsure 07/17/2022 7:53 AM EDT documented as of this encounter Miscellaneous Notes * Cerner Conversion Note - Historical Provider, - 07/24/2021 1:17 PM CDT Patient Education [...] your health care provider and follow the structural steel ironworker's instructions that come with the stockings. ??? [...] provider. Document Revised: 08/22/2020 Document Reviewed: 08/22/2020 [employer] Patient Education ? 2020 [employer] Infectious Disease Wound Infection A wound [...] at home: Medicines ??? Take or apply xdxq-caq-kyomknm and prescription medicines only as told by [...] cannot use soap and water, use hand writer producer. ? Change your bandage as told by [...] provider. Document Revised: 11/30/2018 Document Reviewed: 11/30/2018 [employer] Patient Education ? 2020 [employer] Pharmacology Moderate Conscious Sedation, Adult, Care [...] eating solid foods. General instructions ??? Take gyeb-xse-tcyerbm and prescription medicines only as told by [...] Reviewed: 03/15/2020 [employer] Patient Education ? 2020 [employer] documented in this encounter Plan of Treatment Not on file documented as of this encounter Visit Diagnoses Not on filedocumented in this encounter Care Teams Graphic Art Sales Representative Relationship Specialty Start Date End Date Santosh Briones MD [address] [facility] [address] [place], [place] [id number] PCP - General General Internal Medicine 04/18/22 04/22/22 Santosh Briones MD [address] [facility] [address] PCP - General General Internal Medicine 04/23/22 Julius Cho MD [address] [place] [address] Referring Physician Internal Medicine 04/23/22 Lew Ross MD [address] [facility] [address] [place] [address] Cardiology 08/13/23 Karlos Islas PA-C [address] [place] [address] Cardiology 11/23/23 documented as of this encounter
--- OUTSIDE RECORDS SUMMARY | 2024-11-15 12:17 | XMS_ITS | Clinical Summary ---
Author Organization [facility] Address [address] [place] [address] Phone Care Team Providers Care Piano Instructor Name Role Phone Chris Nunn MD [ ] Conditions or Problems Problem Name Problem Code Onset Date Status Entry Date Provider Comment Standard Description Annotate Hx of pulmonary embolism 494903796 (SNOMED CT) 08/25 Resolved 08/25 Natalia Herron H/O: pulmonary embolus Morbid obesity due to excess calories E66.01 (ICD-10-CM ) 08/25 Active 08/25 Natalia Herron Morbid (severe) obesity due to excess calories Benign Essential Hypertension 83258109 (SNOMED CT) 08/25 Active 08/25 Natalia Herron Benign hypertension Candidiasis of vulva and vagina, acute B37.31 (ICD-10-CM ) 09/20 Active 09/20 Natalia Herron Acute candidiasis of vulva and vagina Yeast infection 9067529 (SNOMED CT) 09/20 Inactive 09/20 Chris Nunn MD Mycosis Scleroderma 06608763 (SNOMED CT) 08/25 Active 08/25 Dania Faulkner Systemic sclerosis Personal history of allergy Bactrim 172938371 (SNOMED CT) 08/25 Active 08/25 Dania Faulkner Allergy to antibacterial drug intermediate frame tender current use of anticoagulan ts 106868061 (SNOMED CT) 08/25 Active 08/25 Dania Faulkner Drug therapy finding Hx of pulmonary embolism 523508229 (SNOMED CT) 08/25 Removed 08/25 Dania Faulkner H/O: pulmonary embolus Presence of left artificial ankle joint 246100753 (SNOMED CT) 08/25 Active 08/25 Dania Faulkner Prosthetic total arthroplasty of ankle Morbid obesity 988985942 (SNOMED CT) 08/25 Inactive 08/25 Dania Faulkner Morbid obesity CAD (coronary artery disease) 05955982 (SNOMED CT) 08/25 Active 08/25 Dania Faulkner Coronary arteriosclerosis Hypertension 91773971 (SNOMED CT) 08/25 Inactive 08/25 Dania Faulkner Hypertensive disorder Chronic ulcer of left ankle, skin layer only 225956708 (SNOMED CT) 08/25 Active 08/25 Dania Faulkner Chronic ulcer of ankle Cellulitis of left lower limb 970386371 (SNOMED CT) 08/20 Active 08/20 Dania Faulkner Cellulitis of leg, excluding foot Chronic osteomyeliti s, left ankle 239933587 (SNOMED CT) 08/20 Active 08/20 Dania Faulkner Chronic osteomyelitis of ankle and/or foot Medications Medication Instructions Start Date Stop Date Generic Name NDC Provider MINOCYCLINE HCL 100 MG TABS Take 1 tablet by mouth once a day minocycline 32262712073 Chris Nunn MD DIFLUCAN 200 MG TABS 1 tablet by mouth once a day as needed for yeast infection fluconazole 52217992099 Chris Nunn MD DOXYCYCLINE HYCLATE 100 MG CAPS 1 capsule by mouth once a day doxycycline hyclate 03831673382 Chris Nunn MD FOLIC ACID 400 MCG TABS Take 2 tablet by mouth once a day folic acid 56727007652 Margaret Bermudez ACETAMINOPHEN 500 MG TABS Take 1 tablet by mouth every six hours as needed acetaminophen 40721038310 Margaret Bermudez NATURAL VITAMIN D-3 125 MCG (5000 UT) TABS Take 1 tablet by mouth once a day cholecalciferol (vitamin d3) 34784538479 Margaret Bermudez ASPIRIN LOW DOSE 81 MG TBEC Take 1 tablet by mouth once a day aspirin 36491879015 Margaret Bermudez FUROSEMIDE 40 MG TABS Take 1 tablet by mouth once a day furosemide 32460601878 Margaret Bermudez apixaban (Eliquis) 5 mg Tab tablet Take 1 tablet by mouth twice a day Eliquis Margaret Bermudez PANTOPRAZOLE SODIUM 40 MG TBEC Take 1 tablet by mouth once a day pantoprazole 89514970252 Margaret Bermudez VITAMIN B-12 1000 MCG TABS Take 1 tablet by mouth once a day cyanocobalamin (vitamin b-12) 81679592229 Margaret Bermudez SACCHAROMYCES BOULARDII 250 MG CAPS Take 1 capsule (250 mg total) by mouth 2 (two) times daily for 7 days. saccharomyces boulardii 68555510208 QIE qieuser PANTOPRAZOLE SODIUM 40 MG TBEC Take 1 tablet (40 mg total) by mouth daily. pantoprazole 46727858533 QIE qieuser FUROSEMIDE 40 MG TABS Take 1 tablet (40 mg total) by mouth daily. furosemide 29527093396 QIE qieuser FOLIC ACID 400 MCG TABS Take 2 tablets (800 mcg total) by mouth daily. folic acid 40746461437 QIE qieuser VITAMIN B-12 1000 MCG TABS Take 1 tablet (1,000 mcg total) by mouth daily. cyanocobalamin (vitamin b-12) 13247800151 QIE qieuser NATURAL VITAMIN D-3 125 MCG (5000 UT) TABS Take 1 tablet (5,000 Units total) by mouth daily. cholecalciferol (vitamin d3) 87736903278 QIE qieuser ASPIRIN LOW DOSE 81 MG TBEC Take 1 tablet (81 mg total) by mouth daily. aspirin 35821897127 QIE qieuser apixaban (Eliquis) 5 mg Tab [...] down for the next 30 min.. alendronate 15056130866 QIE qieuser ACETAMINOPHEN 500 MG TABS Take 1 tablet (500 mg total) by mouth every 6 (six) hours as needed for up to 10 days. acetaminophen 32407842092 QIE qieuser Cubicin RF 500 mg intravenous solution 500mg IV Q24hrs/ OPAT daptomycin 13606538276 Jasmin Proctor RN CEFTRIAXONE SODIUM 2 GM SOLR 2gm IV Q24hrs/ OPAT ceftriaxone 62749083866 Jasmin Proctor RN Medications Administered No information [...] Procedures Code Procedure Name Date Entry Date CPT-24699 CMP J7041s,[id number] CBC with Differential 2023 CPT-68912 C- reactive protein CPT-51341 Sedimentation Rate (ESR) 202 08/10/07 CPT-coral Change [...]
--- OUTSIDE RECORDS SUMMARY | 2024-11-15 12:17 | XMS_ITS | Encounter Summary ---
Author Organization [email or web address] ([place], [place], [place], [place]) Address [address] [place] [address] Care Team Providers Care Edging Supervisor Name Role Phone Santosh Briones MD Primary Care Provider [phone] Santosh Briones MD Primary Care Provider [phone] Julius Cho MD Unavailable Lew Ross MD Unavailable Karlos Islas PA-C Unavailable [phone] Encounter Details Date Type Department Care Team (Late st Contact Info) Description 07/19/2021 Transcribed Document [facility] Family Medicine [address] [place] [address] ProviderAle MD [address] [place] [address] Social History Tobacco Use Types [...] Do you speak a language other than [place]ralt[place] at [facility]? No 08/17/2023 Do you want [...] Sex Assigned at Female 03/19/2022 10:49 AM LADIES' LOCKER ROOM ATTENDANT Legal Sex Female 5:46 PM CDT Gender Identity Female 03/19/2022 10:49 AM LADIES' LOCKER ROOM ATTENDANT Sexual Orientation Not on file COVID-19 Exposure Response Date Recorded In the last 10 days, have yo u been in contact with someone who was confirmed or suspected to have Coronavirus/COVID-19? No / Unsure 07/17/2022 7:53 AM EDT documented as of this encounter Miscellaneous Notes * Cerner Conversion Note - Historical Provider, - 07/19/2021 9:30 AM CDT Patient Education [...] at home: Medicines ??? Take or apply ougg-fdj-vqupoyg and prescription medicines only as told by [...] cannot use soap and water, use hand supervisor anodizing. ? Change your bandage as told by [...] provider. Document Revised: 11/30/2018 Document Reviewed: 11/30/2018 [employer] Patient Education ? 2020 [employer] Pharmacology Moderate Conscious Sedation, Adult, Care [...] eating solid foods. General instructions ??? Take izcy-vpm-cojqhic and prescription medicines only as told by [...] provider. Document Revised: 08/17/2020 Document Reviewed: 03/15/2020 [employer] Patient Education ? 2020 [employer]. documented in this encounter Plan of Treatment Not on file documented as of this encounter Visit Diagnoses Not on filedocumented in this encounter Care Teams Edging Supervisor Relationship Specialty Start Date End Date Santosh Briones MD [address] [facility] [address] [place], [place] [id number] PCP - General General Internal Medicine 04/18/22 04/22/22 Santosh Briones MD [address] [facility] [place] [address] [place] [address] PCP - General General Internal Medicine 04/23/22 Julius Cho MD [address] [place] [address] Referring Physician Internal Medicine 04/23/22 Lew Ross MD [address] [facility] [address] [place] [address] Cardiology 08/13/23 Karlos Islas PA-C [address] [facility], [facility] [address] [place] [address] Cardiology 11/23/23 documented as of this encounter
--- OUTSIDE RECORDS SUMMARY | 2024-11-15 12:17 | XMS_ITS | Encounter Summary ---
Author Organization [employer] ([place], [place], [place], [place]) Address [address] [address] Care Team Providers Care Inspector Handbag Frames Name Role Phone Santosh Briones MD Primary Care Provider [phone] Santosh Briones MD Primary Care Provider [phone] Julius Cho MD Unavailable Lew Ross MD Unavailable Karlos Islas PA-C Unavailable [phone] Encounter Details Date Type Department Care Team (Late st Contact Info) Description 07/23/2021 Transcribed Document [facility] Family Medicine [address] [place] [address] ProviderAle MD [address] [place] [address] Social History Tobacco Use Types [...] Do you speak a language other than Mongolian at [facility]? No 08/17/2023 Do you want [...] Sex Assigned at Female 03/19/2022 10:49 AM DISINTEGRATOR Legal Sex Female 5:46 PM CDT Gender Identity Female 03/19/2022 10:49 AM DISINTEGRATOR Sexual Orientation Not on file COVID-19 Exposure Response Date Recorded In the last 10 days, have yo u been in contact with someone who was confirmed or suspected to have Coronavirus/COVID-19? No / Unsure 07/17/2022 7:53 AM EDT documented as of this encounter Miscellaneous Notes * Cerner Conversion Note - Historical Provider, - 07/23/2021 12:48 PM CDT Height and Weight, Clinical Dosing Entered On: 07/23/2021 12:48 EDT Performed On: 07/23/2021 12:48 EDT by Lisa Prado RN Height and Weight, Clinical Dosing Height Source : Stated Height Entry Format : [place] Height, Feet : 5 ft(Converted to: 152 cm, 60 Inch) Height, Inches : 7 Inch(Converted to: 0 ft 7 Inch, 17.78 cm) Clinical Height : 170.18 cm Weight Source : Standing scale Weight Entry Format : [place] Clinical Dosing Weight : 126.82 kg Weight, Pounds : 279 lb Body Surface Area (BSA) : 2.33 m2 Body Mass Index : 43.8 kg/m2 (>HHI) [place] Body Weight : 61 kg Lisa Prado RN - 07/23/2021 12:48 EDT Electronically signed by [facility] Conversion Clinical Documentation Consultant Cerner at 08/22/2022 4:02 PM CDT documented in this encounter Plan of Treatment Not on file documented as of this encounter Visit Diagnoses Not on filedocumented in this encounter Care Teams Inspector Handbag Frames Relationship Specialty Start Date End Date Santosh Briones MD [address] [facility] [address] [place], [place] [id number] PCP - General General Internal Medicine 04/18/22 04/22/22 Santosh Briones MD [address] [facility] [address] [place], [place] [id number] PCP - General General Internal Medicine 04/23/22 Julius Cho MD [address] [place] [address] Referring Physician Internal Medicine 04/23/22 Lew Ross MD [address] [facility] [address] [place] [address] Cardiology 08/13/23 Karlos Islas PA-C [address] [place] [address] Cardiology 11/23/23 documented as of this encounter
--- OUTSIDE RECORDS SUMMARY | 2024-11-15 12:17 | XMS_ITS | Encounter Summary ---
Author Organization [employer] ([place], [place], [place], [place]) Address [address] [place] [address] Care Team Providers Care House Cleaner Name Role Phone Santosh Briones MD Primary Care Provider [phone] Santosh Briones MD Primary Care Provider [phone] Julius Cho MD Unavailable Lew Ross MD Unavailable Karlos Islas PA-C Unavailable [phone] Encounter Details Date Type Department Care Team (Late st Contact Info) Description 12/19/2020 Transcribed Document [facility] [place] Formerly [facility] [place] [address] Ale Johnson MD [address] [place] [address] Social History Tobacco Use Types Packs/Day Years Used Date Smoking Tobacco: Never Assessed Comments Unknown Sex and Gender Information Value Date Recorded Sex Assigned at Female 03/19/2022 10:49 AM CORSET FITTER Legal Sex Female 5:46 PM CDT Gender Identity Female 03/19/2022 10:49 AM CORSET FITTER Sexual Orientation Not on file documented as of this encounter Miscellaneous Notes * Cerner Conversion Note - Ale ProviderMD - 12/19/2020 8:[address] [facility] Main OR IntraOp Summary Primary Physician: MEE TUCKER, DPM-POD Finalized Date/Time: 12/21/20 10:05:58 Pt. Name: JANIS FIGUERDEO BILLIE Sands/Sex: 1965 Female [facility] Rec #: [id number] Physician: MEE TUCKER, DPM-POD Financial #: [id number] Pt. Type: O Room/Bed: /9 Admit/Disch: 12/19/20 06:32:00 - 12/19/20 12:11:00 Institution: [facility] IntraOp Case Attendance Entry 1 Entry 2 Entry 3 Case Attendee MEE UTCKER BOWEN, JON B, MD-YVETTE ROSEN APRN DPM-POD Role Performed Surgeon/Proceduralist, Anesthesiologist of [facility]/Nurse Public Works Manager First Record Time In 12/19/20 07:55:00 12/19/20 [...] Julienne Atkins Rn Poe, Kali, Letitia Reese, Tax Map Technician Role Performed Public Safety Police, First Public Safety Police, Second Scrub, First Time In 12/19/20 07:55:00 [...] Case Attendee ROBERTO BELCHER RN Role Performed Public Safety Police, First Time In 12/19/20 09:45:00 Time Out 12/19/20 10:03:00 Procedure Achilles Tendon Repair(Right), Bone Spur Excision Other Attendee BREAK Superficial Wound Closed By: Last Modified By: Julienne Atkins Rn 12/19/20 10:28:51 [facility] IntraOp Case Attendance Audit 12/19/20 10:28:51 Master Hearth Technician: [id number] Modifier: [id number] <+> Time Out 1 <*> Procedure [...] Tendon Repair(Right), Bone Spur Excision 12/19/20 10:03:51 Master Hearth Technician: [id number] Modifier: [id number] <+> Time Out 7 <*> Procedure Achilles Tendon Repair(Right), Bone Spur Excision 12/19/20 09:47:32 Master Hearth Technician: [id number] Modifier: [id number] 1 <*> Procedure Achilles Tendon Repair(Right), Bone [...] Procedure <+> 7 Other Attendee 12/19/20 07:58:46 Master Hearth Technician: [id number] Modifier: [id number] <+> [address] [facility] IntraOp Case Times Entry 1 Patient In Room Time 12/19/20 07:55:00 Out Room Time 12/19/20 10:23:00 Anesthesia Start Time 12/19/20 07:55:00 Stop Time 12/19/20 10:23:00 Surgery / Procedure Times Start Time 12/19/20 08:35:00 Stop Time 12/19/20 10:16:00 Last Modified By: Julienne Atkins Rn 12/19/20 10:28:41 [facility] IntraOp Case Times Audit 12/19/20 10:28:41 Master Hearth Technician: [id number] Modifier: [id number] <+> 1 Out Room Time <+> 1 Stop Time <+> 1 Stop Time 12/19/20 08:37:30 Master Hearth Technician: [id number] Modifier: [id number] <+> [address] [facility] IntraOp Cautery Entry 1 ESU Identification Cautery Type Monopolar ESU ID Number [id number] ID Type Hospital Number Cautery Settings Cut [...] Modified By: Julienne Atkins Rn 12/19/20 07:59:56 [facility] IntraOp Communication Entry 1 Communication To Family/Significant other Communication By Domingo Conklin RN Date and Time 12/19/20 08:37:00 Last Modified By: Julienne Atkins Rn 12/19/20 08:37:40 [facility] IntraOp Counts Verification Entry 1 Procedure Achilles Tendon Repair(Right), Bone Spur Excision Count Info Count Type Sponge, Sharps Counts Verification Baseline/pre-procedure Sequence Count Results Not Applicable Counts Performed By Count Performed By Letitia [place] (Scrub) Tax Map Technician Count Performed By Domingo Conklin RN (RN) Last Modified By: Julienne Atkins Rn 12/19/20 08:00:18 [facility] IntraOp Counts Final Entry 1 Procedure Achilles Tendon Repair(Right), Bone Spur Excision Final Count Info Count Type Sponge, Sharps Counts Verification Skin Closure/end of Sequence procedure Count Results Correct, surgeon notified Counts Performed By Count Performed By Letitia Washington (Scrub) Tax Map Technician Count Performed By Julienne Atkins Rn (RN) Last Modified By: Julienne Atkins Rn 12/19/20 10:05:43 [facility] IntraOp Cultures and Spec Summary Entry 1 Cultrures and Specimens Specimen Ordered: Yes Test(s) Routine/Path-Lab Requested/Final Disposition Last Modified By: Julienne Atkins Rn 12/19/20 09:32:55 General Comments: A. RIGHT FOOT BONE [facility] IntraOp Delays Entry 1 Delay Reason Patient, other (document in comment) Duration 25 Minute(s) Comment PATIENT GETTING NERVE BLOCK Last Modified By: Julienne Atkins Rn 12/19/20 08:00:49 [facility] IntraOp Departure from OR Entry 1 Integumentary Assessment Integumentary WDL Assessment WDL Transfer/Handoff Transfer to PACU Phase I Handoff Method Bedside/Face to face, Phone call Post-op Transport Stretcher/Gurney Via Patient Transport YVETTE CEJA, Accompanied by Wilbert CLEVELAND Tracy R, Rn, Domingo Conklin RN Last Modified By: Julienne Atkins Rn 12/19/20 08:01:04 [facility] IntraOp Drains and Tubes Entry 1 Device Type Dane Size 1/4 Drain/Tube Activity Inserted Drain/Tube Suction Emory Drain/Tube Drainage Red Device Location RIGHT LOWER LEG Method of Drainage Emory Last Modified By: Julienne Atkins Rn 12/19/20 08:49:09 [facility] IntraOp Dressing and Packing Entry 1 Type Dressing Location RIGHT FOOT Wound Dressing Item 4x4's, Kerlix/Janie, Johnnie, Other Applied By MEE TUCKER, DPOswald-POD Other Comments SILVER DRESSING Last Modified By: Julienne Atkins Rn 12/19/20 10:05:02 [facility] IntraOp Dressing and Packing Audit 12/19/20 10:05:02 Master Hearth Technician: [id number] Modifier: [id number] 1 <*> Wound Dressing Item 4x4's, Kerlix/Janie, Johnnie 1 <+> Applied By 1 <*> Other Comments ACTICOAT [facility] IntraOp Fire Risk Assessment Entry 1 Fire [...] Modified By: Julienne Atkins Rn 12/19/20 08:01:48 [facility] IntraOp General Case Procurement Services Manager 1 Case Information OR OR 02 [facility] Case Level 1 Room Verified Yes Wound Class I - Clean Specialty Podiatry Anesthesia Type General ASA Class 3 Diagnosis Preop Diagnosis RIGHT ACHILLES INJURY Postop Same As Preop No Postop Diagnosis SEE MD NOTES Last Modified By: Julienne Atkins Rn 12/19/20 08:02:15 [facility] IntraOp Implant Log Entry 1 Entry 2 Entry 3 Type Tissue Implant Implant (Synthetic) Implant (Synthetic) (Biologic) Implant Log Implant Type Hardware Hardware Tissue Implant Type Tissue Implant IMP STRAVIX [id number] ARTHREX ANCHOR KT IB PLUS BC W/CC FT Identification [id number] Description Implant Quantity 1 2 1 Implant Site RIGHT ANKLE RIGHT FOOT RIGHT FOOT Implant Identification Model Number Implant [id number] Identification Serial Number Implant [id number] Identification Lot Number Implant [employer] ARTHREX Arthrex Identification Tripe Cooker Name: Implant [id number] Identification Catalog Number Implant Size Implant Has an Yes Yes Yes Expiration Date Implant Expiration 04/13/23 08/01/22 07/01/22 Date Wasted Radioactive Material Time Implanted Tissue Implant Continue for Tissue Implant Documentation Tissue Identification Number Graft Prep Per Yes Tripe Cooker Instructions: Tissue Preparation N/A Method: Reconstitution Solution: Reconstitution Solution Lot Number Reconstitution Solution Expiration Date: Thawing Solution Thawing Solution Lot Number Thawing Solution Expiration Date Preparation Materials, Other Preparation Materials, Other Lot Number Preparation Materials, Other Expiration Date MEE Ash, Prepared/Processed DPM-POD By Tripe Cooker Yes Paperwork Completed Implant Type Comment Last Modified By: Julienne Atkins Rn Compton, Tracy R, Rn Compton, Tracy R, Rn 12/19/20 09:32:32 12/19/20 09:32:32 12/19/20 09:32:32 Entry 4 Type Implant (Synthetic) Implant Log Implant Type Tissue Implant Type Implant ARTHREX SUTURE TAPE REF Identification [id number] Description Implant Quantity 1 Implant Site OPSITE Implant Identification Model Number Implant Identification Serial Number Implant [id number] Identification Lot Number Implant Identification Tripe Cooker Name: Implant Identification Catalog Number Implant Size Implant Has an Yes Expiration Date Implant Expiration 08/31/25 Date Wasted Radioactive Material Time Implanted Tissue Implant Continue for Tissue Implant Documentation Tissue Identification Number Graft Prep Per Tripe Cooker Instructions: Tissue Preparation Method: Reconstitution Solution: Reconstitution Solution Lot Number Reconstitution Solution Expiration Date: Thawing Solution Thawing Solution Lot Number Thawing Solution Expiration Date Preparation Materials, Other Preparation Materials, Other Lot Number Preparation Materials, Other Expiration Date Tissue Prepared/Processed By Tripe Cooker Paperwork Completed Implant Type Comment Last Modified By: Julienne Atkins Rn 12/19/20 10:03:35 [facility] IntraOp Implant Log Audit 12/19/20 10:03:35 Master Hearth Technician: [id number] Modifier: [id number] <+> 4 Implant Identification Description <+> 4 Implant Identification Lot Number <+> 4 Implant Expiration Date <+> 4 Implant Site <+> 4 Implant Quantity <+> 4 Implant Has an Expiration Date <+> [address] [facility] IntraOp Intraoperative Assessment Entry 1 Handoff Method [...] Modified By: Julienne Atkins Rn 12/19/20 08:03:12 [facility] IntraOp Intraoperative Equipment Entry 1 Type Equipment Equipment Equipment Yumi Suction System ID Number [id number] Setting ON Intraop Monitoring Blood Pressure Non-Invasive BP Device Source Antiembolic Devices Scopes Photo/Video Documentation Last Modified By: Julienne Atkins Rn 12/19/20 08:03:54 [facility] IntraOp Medication Admin Entry 1 Medication/Irrigant LAILA IRR NACL 0.9PCT 2000ML [facility]-[id number] Time Administered 12/19/20 08:35:00 Route of IRRIGATION Administration Dose Administered By MEE TUCKER DPOswald-POD Procedure Irrigation Last Modified By: Julienne Atkins Rn 12/19/20 09:04:22 [facility] IntraOp Medication Admin Audit 12/19/20 09:04:22 Master Hearth Technician: [id number] Modifier: [id number] 1 <*> Medication/Irrigant LAILA IRR NACL 0.9PCT 2000ML [facility]-[id number] 1 <+> Time Administered [facility] IntraOp Patient Positioning Entry 1 Procedure Achilles [...] TUCKER, DPM-POD, YVETTE CEJA APRN, Julienne Atkins, Viri, Domingo Conklin, RN Position Verified Positioning Yes Verified by Anesthesia Positioning Yes Verified by Surgeon Last Modified By: Julienne Atkins Rn 12/19/20 08:05:17 [facility] IntraOp Sign In Entry 1 Patient, Site, [...] Modified By: Julienne Atkins Rn 12/19/20 08:05:29 [facility] IntraOp Sign Out Entry 1 RN Confirmation [...] Yes Elements Complete? RN Sign Out Julienne Atkins Rn Signature RN Sign Out 12/19/20 10:28:00 [...] Modified By: Julienne Atkins Rn 12/19/20 10:28:48 [facility] IntraOp Sign Out Audit 12/19/20 10:28:48 Master Hearth Technician: [id number] Modifier: [id number] <+> 1 RN Sign Out Signature Date/Time [facility] IntraOp Skin Prep Entry 1 Procedure Achilles Tendon Repair(Right), Bone Spur Excision Prescribed Yes Pre-Surgical Prep Completed Prep Area RIGHT FOOT AND LOWER LEG TO KNEE Intraop Prep Integumentary WDL Assessment WDL Prep Agents Chloraprep Prep by Julienne Atkins Rn Hair Removal Methods No hair removal performed Last Modified By: Julienne Atkins Rn 12/19/20 08:08:22 [facility] IntraOp Surgical Procedures Entry 1 Entry 2 [...] Tracy R, Rn 12/19/20 10:28:50 12/19/20 10:28:50 [facility] IntraOp Surgical Procedures Audit 12/19/20 10:28:50 Master Hearth Technician: [id number] Modifier: [id number] <+> 1 Stop <+> [address] [facility] IntraOp Temp Regulation Devices Entry 1 Temp Regulation Temperature Forced Air Warming Regulation Device device, Warm blankets Temperature 179723 Regulation Device Serial/Unit Number Temperature Upper body Regulation Site Temperature Device on Setting Temperature YVETTE CEJA APRN Regulation Device Applied by Last Modified By: Julienne Atkins Rn 12/19/20 08:39:43 [facility] IntraOP Time Out Entry 1 Procedure to [...] Modified By: Julienne Atkins Rn 12/19/20 08:38:12 [facility] IntraOp Tourniquet Entry 1 Type Pneumatic Serial/Unit Number [id number] Setting 300 mmHg Pheumatic Yes Tourniquet Checked Per Protocol Placement Thigh, right upper Skin Protection - Yes Padded Under Cuff Applied By Julienne Atkins Rn Removed By MEE TUCKER DPM-POD Times Start Time 12/19/20 08:34:00 Stop Time 12/19/20 10:15:00 Total Time 101 calculated manually (Mins) Last Modified By: Julienne Atkins Rn 12/19/20 10:16:00 [facility] IntraOp Tourniquet Audit 12/19/20 10:16:00 Master Hearth Technician: [id number] Modifier: [id number] <+> 1 Total Time calculated manually (Mins) <+> 1 Stop Time Case Comments <None> Finalized By: KENDRA PROCTOR Document Signatures Signed By: Julienne Atkins Rn 12/19/20 10:28 KENDRA PROCTOR 12/20/20 12:08 KENDRA PROCTOR 12/21/20 10:05 Unfinalized History Date/Time Username Reason for Unfinalizing Freetext Reason for Unfinalizing 12/20/20 12:03 [id number] Correct Billing 12/21/20 10:05 CHEN Correct Billing Electronically signed by [facility] Conversion Opthalmic Tech Cerner at 08/22/2022 3:52 PM CDT documented in this encounter Plan of Treatment Not on file documented as of this encounter Visit Diagnoses Not on filedocumented in this encounter Care Teams House Cleaner Relationship Specialty Start Date End Date Santosh Briones MD [address] [place], [place] [id number] PCP - General General Internal Medicine 04/18/22 04/22/22 Santosh Briones MD [address] [place], [place] [id number] PCP - General General Internal Medicine 04/23/22 Julius Cho MD [address] [place] [address] Referring Physician Internal Medicine 04/23/22 Lew Ross MD [address] [facility] [address] [place] [address] Cardiology 08/13/23 Karlos Islas PA-C [address] [facility] [address] [place] [id number] Cardiology 11/23/23 documented as of this encounter
--- OUTSIDE RECORDS SUMMARY | 2024-11-15 12:17 | XMS_ITS | Encounter Summary ---
Author Organization [employer] ([place], [place], [place], [place]) Address [address] [place] [address] Care Team Providers Care Second Hand Paper Machine Name Role Phone Santosh Briones MD Primary Care Provider [phone] Santosh Briones MD Primary Care Provider [phone] Julius Cho MD Unavailable Lew Ross MD Unavailable Karlos Islas PA-C Unavailable [phone] Encounter Details Date Type Department Care Team (Late st Contact Info) Description 12/19/2020 Transcribed Document [facility] [place] [facility] [place] [address] Ale Johnson MD [address] [place] [address] Social History Tobacco Use Types Packs/Day Years Used Date Smoking Tobacco: Never Assessed Comments Unknown Sex and Gender Information Value Date Recorded Sex Assigned at Female 03/19/2022 10:49 AM FRETTED INSTRUMENT REPAIRER Legal Sex Female 5:46 PM CDT Gender Identity Female 03/19/2022 10:49 AM FRETTED INSTRUMENT REPAIRER Sexual Orientation Not on file documented as of this encounter Miscellaneous Notes * Cerner Conversion Note - Ale ProviderMD - 12/19/2020 7:49 AM CDT Peripheral Nerve [...] - 12/19/2020 7:49 EDT Electronically signed by [facility] Conversion Director Vaccine Cerner at 08/22/2022 3:50 PM CDT documented in this encounter Plan of Treatment Not on file documented as of this encounter Visit Diagnoses Not on filedocumented in this encounter Care Teams Second Hand Paper Machine Relationship Specialty Start Date End Date Santosh Briones MD [address] [facility] [address] [place], [place] [id number] PCP - General General Internal Medicine 04/18/22 04/22/22 Santosh Briones MD [address] [facility] [address] [place], [place] [id number] PCP - General General Internal Medicine 04/23/22 Julius Cho MD [address] [place] [address] Referring Physician Internal Medicine 04/23/22 Lew Ross MD [address] [facility] [address] [place] [address] Cardiology 08/13/23 Karlos Islas PA-C [address] [facility] [address] [place] [address] Cardiology 11/23/23 documented as of this encounter
--- OUTSIDE RECORDS SUMMARY | 2024-11-15 12:17 | XMS_ITS | Encounter Summary ---
Author Organization [employer] ([place], [place], [place], [place]) Address [address] [place] [address] Care Team Providers Care Retail Leasing Agent Name Role Phone Santosh Briones MD Primary Care Provider [phone] Santosh Briones MD Primary Care Provider [phone] Julius Cho MD Unavailable Lew Ross MD Unavailable Karlos Islas PA-C Unavailable [phone] Encounter Details Date Type Department Care Team (Late st Contact Info) Description 12/19/2020 Transcribed Document [facility] [place] Family [place] [address] Ale Johnson MD [address] [place] [address] Social History Tobacco Use Types Packs/Day Years Used Date Smoking Tobacco: Never Assessed Comments Unknown Sex and Gender Information Value Date Recorded Sex Assigned at Female 03/19/2022 10:49 AM PRECAST WORKER Legal Sex Female 5:46 PM CDT Gender Identity Female 03/19/2022 10:49 AM PRECAST WORKER Sexual Orientation Not on file documented as of this encounter Miscellaneous Notes * Cerner Conversion Note - Ale ProviderMD - 12/19/2020 8:35 AM CDT [facility] Main OR PACU Summary Primary Physician: MEE TUCKER, DPM-POD Finalized Date/Time: 12/21/20 20:53:34 Pt. Name: JANIS FIGUEREDO BILLIE Sands/Sex: 1965 Female Med Rec #: [id number] Physician: MEE TUCKER, DPM-POD Financial #: [id number] Pt. Type: O Room/Bed: Admit/Disch: 12/19/20 06:32:00 - 12/19/20 12:11:00 Institution: [facility] Main OR PACU I Case Times Entry 1 In PACU I 12/19/20 10:25:00 Ready for PACU 12/19/20 11:05:00 Discharge Discharge from PACU 12/19/20 11:08:00 I Last Modified By: Sunshine Rowland RN-PATIENT CARE BEDSIDE NON-EXEMPT 12/19/20 11:55:39 [facility] Main OR PACU Acuity Entry 1 Start Time 12/19/20 11:05:00 Stop Time 12/19/20 11:08:00 Acuity Level [facility] PACU Acuity I Last Modified By: Letitia Dugan Nurse Billet Assembler 12/21/20 20:53:32 [facility] Main OR PACU Acuity Audit 12/21/20 20:53:32 Wealth Management Advisor: [id number] Modifier: [id number] <*> Start Time 12/19/20 10:25:00 Finalized By: Letitia Dugan Nurse Returns Processor Signatures Signed By: Sunshine Rowland RN-PATIENT CARE BEDSIDE NON-EXEMPT 12/19/20 11:55 Letitia Dugan Nurse Billet Assembler 12/21/20 20:53 Unfinalized History Date/Time Username Reason for Unfinalizing Freetext Reason for Unfinalizing 12/21/20 20:53 [id number] Correct Billing Electronically signed by [facility] Conversion Treer Cerner at 08/22/2022 3:52 PM CDT documented in this encounter Plan of Treatment Not on file documented as of this encounter Visit Diagnoses Not on filedocumented in this encounter Care Teams Retail Leasing Agent Relationship Specialty Start Date End Date Santosh Briones MD [address] [facility] [place] [address] PCP - General General Internal Medicine 04/18/22 04/22/22 Santosh Briones MD [address] [place] [address] [place] [address] PCP - General General Internal Medicine 04/23/22 Julius Cho MD [address] [place] [address] Referring Physician Internal Medicine 04/23/22 Lew Ross MD [address] [facility] [address] [place] [address] Cardiology 08/13/23 Karlos Islas PA-C [address] [facility] [address] [place] [address] Cardiology 11/23/23 documented as of this encounter
--- OUTSIDE RECORDS SUMMARY | 2024-11-15 12:17 | XMS_ITS | Encounter Summary ---
Author Organization [employer] ([place], [place], [place], [place]) Address [address] [place] [address] Care Team Providers Care Formula Mixer Name Role Phone Santosh Briones MD Primary Care Provider [phone] Santosh Briones MD Primary Care Provider [phone] Julius Cho MD Unavailable Lew Ross MD Unavailable Karlos Islas PA-C Unavailable Encounter Details Date Type Department Care Team (Late st Contact Info) Description 12/19/2020 Transcribed Document [facility] [place] Medicine [address] [place] [address] ProviderAle MD [address] [place] [address] Social History Tobacco Use Types Packs/Day Years Used Date Smoking Tobacco: Never Assessed Comments Unknown Sex and Gender Information Value Date Recorded Sex Assigned at Female 03/19/2022 10:49 AM CAR STARTER Legal Sex Female 5:46 PM CDT Gender Identity Female 03/19/2022 10:49 AM CAR STARTER Sexual Orientation Not on file documented as of this encounter Miscellaneous Notes * Cerner Conversion Note - Ale ProviderMD - 12/19/2020 3:48 PM CDT DATE OF PROCEDURE: 12/19/2020 1965 SURGEON: Massimo Blake DPM HEAD OF MERCHANDISE BUYING: None. PREOPERATIVE DIAGNOSES: Right Achilles tendon tear; [...] nylon 2-0, Vicryl 2-0, Arthrex anchors x4. Daen drain. Graft Info: We used a 2 [...] retracted as necessary. We then placed a Dane drain. We closed up the incision with Vicryl after a quarter-inch Dane drain was placed and then we put [...] We will continue to follow this patient. /[id number] YONG Enciso/JALEEL / BMLizbet / MODL /[id number] documented in this encounter Plan of Treatment Not on file documented as of this encounter Visit Diagnoses Not on filedocumented in this encounter Care Teams Formula Mixer Relationship Specialty Start Date End Date Santosh Briones MD [address] [place], [place] [id number] PCP - General General Internal Medicine 04/18/22 04/22/22 Santosh Briones MD [address] [facility] [address] [place], [place] [id number] PCP - General General Internal Medicine 04/23/22 Julius Cho MD [address] [address] Referring Physician Internal Medicine 04/23/22 Lew Ross MD [address] [facility] [address] [place] [address] Cardiology 08/13/23 Karlos Islas PA-C [address] [facility] [address] [place] [address] Cardiology 11/23/23 documented as of this encounter
--- OUTSIDE RECORDS SUMMARY | 2024-11-15 12:17 | XMS_ITS | Encounter Summary ---
Author Organization [employer] ([place], [place], [place], [place]) Address [address] [place] [address] Care Team Providers Care International Organizer Name Role Phone Santosh Santos MD Primary Care Provider [phone] Santosh Santos MD Primary Care Provider [phone] Julius Cho MD Unavailable Nader Wu MD Unavailable Karlos Islas PA-C Unavailable Encounter Details Date Type Department Care Team (Late st Contact Info) Description 07/25/2021 Transcribed Document [facility] [place] Family Medicine [address] [place] [address] ProviderAle MD [address] [place] [address] Social History Tobacco Use Types [...] Do you speak a language other than Marshallese at [facility]? No 08/17/2023 Do [...] Sex Assigned at Female 03/19/2022 10:49 AM SMASH HAND Legal Sex Female 5:46 PM CDT Gender Identity Female 03/19/2022 10:49 AM SMASH HAND Sexual Orientation Not on file COVID-19 Exposure Response Date Recorded In the last 10 days, have yo u been in contact with someone who was confirmed or suspected to have Coronavirus/COVID-19? No / Unsure 07/17/2022 7:53 AM EDT documented as of this encounter Miscellaneous Notes * Cerner Conversion Note - Historical Provider, - 07/25/2021 4:01 PM CDT [facility] [address] [place], [place] [id number] JANIS FIGUEREDO :1965 Visit Time:07/25/2021 Your Visit [...] compression stocking. Follow-Up Appointments Follow Up with NADER WU MD-CAR When Comments Follow-up as instructed Where: [address] [place] [address] [address] [place] [address]- Medications What How Much When Instructions Next [...] and water are not available, use hand personal injury specialist. ? Change your dressing as told by [...] health care provider. General instructions ??? Take weof-otv-rspptve and prescription medicines only as told by [...] provider. Document Revised: 12/29/2018 Document Reviewed: 12/29/2018 ngmoco Patient Education ?? 2020 ngmoco Inc. Moderate Conscious Sedation, Adult, Care After [...] eating solid foods. General instructions ??? Take jcmo-pln-vwvijql and prescription medicines only as told by [...] provider. Document Revised: 08/17/2020 Document Reviewed: 03/15/2020 ElseFly Fishing Hunter Patient Education ?? 2020 ngmoco Inc. Emergency Awareness and Preventative Care STROKE [...] Assistance with quitting is available by contacting 0-558-CAYF-NOW. This is a free resource providing counseling, [...] was given the opportunity to ask questions. Patient/Heeler Name: Patient/Heeler Signature: Relationship to Patient: Clinician/Hospital Heeler Signature: Date: documented in this encounter Plan of Treatment Not on file documented as of this encounter Visit Diagnoses Not on filedocumented in this encounter Care Teams International Organizer Relationship Specialty Start Date End Date Santosh Santos MD [facility] [address] [place], [place] [id number] PCP - General General Internal Medicine 04/18/22 04/22/22 Santosh Santos MD [address] [facility] [place] [address] PCP - General General Internal Medicine 04/23/22 Julius Cho MD [address] [place] [address] Referring Physician Internal Medicine 04/23/22 Nader Wu MD [address] [facility] [address] [place] [address] Cardiology 08/13/23 Karlos Islas PA-C [address] [place] [address] Cardiology 11/23/23 documented as of this encounter
--- OUTSIDE RECORDS SUMMARY | 2024-11-15 12:17 | XMS_ITS | Encounter Summary ---
Author Organization [employer] ([place], [place], [place], [place]) Address [address] [place] [address] Care Team Providers Care Bundle Sorter Name Role Phone Santosh Santos MD Primary Care Provider [phone] Santosh Santos MD Primary Care Provider [phone] Julius Cho MD Unavailable Nader Wu MD Unavailable Karlos Islas PA-C Unavailable [phone] Encounter Details Date Type Department Care Team (Late st Contact Info) Description 07/19/2021 Transcribed Document [facility] [place] Family Medicine [address] [place] [address] ProviderAle MD [address] [place] [address] Social History Tobacco Use Types [...] Do you speak a language other than Cook Islander at [facility]? No 08/17/2023 Do you want help with [...] Sex Assigned at Female 03/19/2022 10:49 AM STOVE MECHANIC Legal Sex Female 5:46 PM CDT Gender Identity Female 03/19/2022 10:49 AM STOVE MECHANIC Sexual Orientation Not on file COVID-19 Exposure Response Date Recorded In the last 10 days, have yo u been in contact with someone who was confirmed or suspected to have Coronavirus/COVID-19? No / Unsure 07/17/2022 7:53 AM EDT documented as of this encounter Miscellaneous Notes * Cerner Conversion Note - Historical Provider, - 07/19/2021 9:32 AM CDT [facility] [address] [place], [place] [id number] JANIS FIGUEREDO :1965 Visit Time:07/19/2021 Your Visit [...] at home: Medicines ??? Take or apply nroh-zfa-qdcfbmk and prescription medicines only as told by [...] cannot use soap and water, use hand organic gardening teacher. ? Change your bandage as told by [...] provider. Document Revised: 11/30/2018 Document Reviewed: 11/30/2018 Semmle Patient Education ?? 2020 Semmle Inc. Moderate Conscious Sedation, Adult, Care After [...] eating solid foods. General instructions ??? Take ctpj-jwi-rxkmcoi and prescription medicines only as told by [...] Reviewed: 03/15/2020 Elsevier Patient Education ?? 2020 Semmle Inc. Emergency Awareness and Preventative Care STROKE [...] Assistance with quitting is available by contacting 1-565-UXKU-NOW. This is a free resource providing counseling, support, and referral. Or you may contact your personal physician. Amber Suicide Prevention Lifeline: The National Suicide Prevention [...] CPR? There are two easy steps: Call --1 if you see a teen or adult [...] Laboratory or Other Results This Visit Patient Name:FIGUEREDOJANIS I have received and understand this information and was given the opportunity to ask questions. Patient/Transfusion Nurse Name: Patient/Transfusion Nurse Signature: Relationship to Patient: Clinician/Hospital Transfusion Nurse Signature: Date: documented in this encounter Plan of Treatment Not on file documented as of this encounter Visit Diagnoses Not on filedocumented in this encounter Care Teams Bundle Sorter Relationship Specialty Start Date End Date Santosh Santos MD [address] [facility] [place] [address] PCP - General General Internal Medicine 04/18/22 04/22/22 Santosh Santos MD [address] [facility] [place] [address] PCP - General General Internal Medicine 04/23/22 Julius Cho MD [address] [place] [address] Referring Physician Internal Medicine 04/23/22 Nader Wu MD [address] [facility] [address] [place] [address] Cardiology 08/13/23 Karlos Islas PA-C [address] [facility] [place] [address] Cardiology 11/23/23 documented as of this encounter
--- OUTSIDE RECORDS SUMMARY | 2024-11-15 12:17 | XMS_ITS | Encounter Summary ---
Author Organization [employer] ([place], [place], [place], [place]) Address [address] [place] [address] Care Team Providers Care Director Of Front Office Name Role Phone Santosh Briones MD Primary Care Provider [phone] Santosh Briones MD Primary Care Provider [phone] Julius Cho MD Unavailable Lew Ross MD Unavailable Karlos Islas PA-C Unavailable [phone] Encounter Details Date Type Department Care Team (Late st Contact Info) Description 07/22/2021 Transcribed Document [facility] [place] Family Medicine [address] [place] [address] ProviderAle MD [address] [place] [address] Social History Tobacco Use Types [...] Do you speak a language other than Scottish at [facility]? No 08/17/2023 Do you want help [...] Sex Assigned at Female 03/19/2022 10:49 AM SOUND EQUIPMENT MECHANIC Legal Sex Female 5:46 PM CDT Gender Identity Female 03/19/2022 10:49 AM SOUND EQUIPMENT MECHANIC Sexual Orientation Not on file COVID-19 Exposure Response Date Recorded In the last 10 days, have yo u been in contact with someone who was confirmed or suspected to have Coronavirus/COVID-19? No / Unsure 07/17/2022 7:53 AM EDT documented as of this encounter Miscellaneous Notes * Cerner Conversion Note - Historical Provider, - 07/22/2021 4:34 PM CDT Nursing Discharge Summary Entered On: 07/22/2021 16:35 EDT Performed On: 07/22/2021 16:34 EDT by [employer] mixing and molding machine operator Documentation Discharge Date/Time : 07/22/2021 17:40 EDT [...] - 07/22/2021 16:34 EDT Electronically signed by [facility] Conversion Air Saw Operator Cerner at 08/22/2022 4:09 PM CDT documented in this encounter Plan of Treatment Not on file documented as of this encounter Visit Diagnoses Not on filedocumented in this encounter Care Teams Director Of Front Office Relationship Specialty Start Date End Date Santosh Briones MD [address] [facility] [address] [place], [place] [id number] PCP - General General Internal Medicine 04/18/22 04/22/22 Santosh Briones MD [address] [facility] [address] [place], [place] [address] PCP - General General Internal Medicine 04/23/22 Julius Cho MD [address] [place] [address] Referring Physician Internal Medicine 04/23/22 eLw Ross MD [address] [facility] [address] [place] [address] Cardiology 08/13/23 Karlos Islas PA-C [address] [facility], [facility] [address] [place] [address] Cardiology 11/23/23 documented as of this encounter
--- OUTSIDE RECORDS SUMMARY | 2024-11-15 12:17 | XMS_ITS | Encounter Summary ---
Author Organization [employer] ([place], [place], [place], [place]) Address [address] [place] [address] Care Team Providers Care Supervisor Phosphoric Acid Name Role Phone Santosh Santos MD Primary Care Provider [phone] Santosh Santos MD Primary Care Provider [phone] Julius Cho MD Unavailable Nader Wu MD Unavailable Karlos Islas PA-C Unavailable [phone] Encounter Details Date Type Department Care Team (Late st Contact Info) Description 07/23/2021 Transcribed Document [facility] [place] Family Medicine [address] [place] [address] ProviderAle MD [address] [place] [address] Social History Tobacco Use Types [...] Do you speak a language other than Bolivian at [facility]? No 08/17/2023 Do you want help [...] Assigned at Female 03/19/2022 10:49 AM VISUAL JOURNALIST Legal Sex Female 5:46 PM CDT Gender Identity Female 03/19/2022 10:49 AM VISUAL JOURNALIST Sexual Orientation Not on file COVID-19 Exposure Response Date Recorded In the last 10 days, have yo u been in contact with someone who was confirmed or suspected to have Coronavirus/COVID-19? No / Unsure 07/17/2022 7:53 AM EDT documented as of this encounter Miscellaneous Notes * Cerner Conversion Note - Historical Provider, - 07/23/2021 3:25 PM CDT [facility] [place] [address] JANIS FIGUEREDO :1965 Visit Time:07/23/2021 Your Visit [...] as instructed Bring your compression stockings. Where: [address] [facility] [address] [place] [address]- Business (1) Medications What How Much When [...] at home: Medicines ??? Take or apply obgt-nxs-muyrvsb and prescription medicines only as told by [...] cannot use soap and water, use hand web press operator helper offset. ? Change your bandage as told by [...] provider. Document Revised: 11/30/2018 Document Reviewed: 11/30/2018 ElseFuture Health Software Patient Education ?? 2021 CAH Holdings Groupvier Inc. Moderate Conscious Sedation, Adult, Care After [...] eating solid foods. General instructions ??? Take zjth-gim-uzwrgtb and prescription medicines only as told by [...] provider. Document Revised: 08/17/2020 Document Reviewed: 03/15/2020 ElseFuture Health Software Patient Education ?? 2020 [employer]o Group Inc. Emergency Awareness and Preventative Care STROKE [...] Assistance with quitting is available by contacting 2-430-FPQKNew Seasons MarketNOW. This is a free resource providing counseling, [...] was given the opportunity to ask questions. Patient/Utility System Repairer Name: Patient/Utility System Repairer Signature: Relationship to Patient: Clinician/Hospital Utility System Repairer Signature: Date: Electronically signed by Everardo [facility] Conversion Wood Molder Cerner at 08/22/2022 3:47 PM CDT documented in this encounter Plan of Treatment Not on file documented as of this encounter Visit Diagnoses Not on filedocumented in this encounter Care Teams Supervisor Phosphoric Acid Relationship Specialty Start Date End Date Santosh Santos MD [address] [facility] [place] [address] PCP - General General Internal Medicine 04/18/22 04/22/22 Santosh Santos MD [address] [place] [address] PCP - General General Internal Medicine 04/23/22 Julius Cho MD [address] [place] [address] Referring Physician Internal Medicine 04/23/22 Nader Wu MD [address] [place] [address] [address] [place] [address] Cardiology 08/13/23 Karlos Islas PA-C [address], [facility] [address] [place] [address] Cardiology 11/23/23 documented as of this encounter
--- OUTSIDE RECORDS SUMMARY | 2024-11-15 12:17 | XMS_ITS | Encounter Summary ---
Author Organization [employer] ([place], [place], [place], [place]) Address [address] [place] [address] Care Team Providers Care Explosive Operator Fuse Name Role Phone Santosh Briones MD Primary Care Provider Santosh Briones MD Primary Care Provider [phone] Julius Cho MD Unavailable Lew Ross MD Unavailable Karlos Islas PA-C Unavailable [phone] Encounter Details Date Type Department Care Team (Late st Contact Info) Description 12/19/2020 Transcribed Document [facility] [place] Family Medicine [facility] [address] Ale Johnson MD [address] [place] [address] Social History Tobacco Use Types Packs/Day Years Used Date Smoking Tobacco: Never Assessed Comments Unknown Sex and Gender Information Value Date Recorded Sex Assigned at Female 03/19/2022 10:49 AM MEAT TEAM MEMBER Legal Sex Female 5:46 PM CDT Gender Identity Female 03/19/2022 10:49 AM MEAT TEAM MEMBER Sexual Orientation Not on file documented as of this encounter Miscellaneous Notes * Cerner Conversion Note - Ale ProviderMD - 12/19/2020 7:30 AM CDT [facility] Main OR Preop Summary Primary Physician: MEE TUCKER, DPM-POD Finalized Date/Time: 12/19/20 07:52:13 Pt. Name: JANIS FIGUEREDO BILLIE Sands/Sex: 1965 Female Med Rec #: [id number] Physician: MEE TUCKER, DPM-POD Financial #: [id number] Pt. Type: O Room/Bed: / Admit/Disch: 12/19/20 06:32:00 - Institution: [facility] PreOp Case Times Entry 1 In Preop 12/19/20 05:50:00 Ready for Holding n/a Room Patient Ready for 12/19/20 07:48:00 Surgery Patient Out of Preop 12/19/20 07:52:00 Patient Out of n/a Holding Room Last Modified By: Pérez Gil Rn 12/19/20 07:52:11 [facility] PreOp Case Times Audit 12/19/20 07:52:11 Process Controller: [id number] Modifier: [id number] <+> 1 Patient Out of Preop <+> 1 Patient Ready for Surgery Finalized By: Pérez Gil Rn Document Signatures Signed By: Pérez Gil Rn 12/19/20 07:52 Electronically signed by Everardo [facility] Conversion Environmental Field Team Member Cerner at 08/22/2022 3:49 PM CDT documented in this encounter Plan of Treatment Not on file documented as of this encounter Visit Diagnoses Not on filedocumented in this encounter Care Teams Explosive Operator Fuse Relationship Specialty Start Date End Date Santosh Briones MD [address] [place] [address] PCP - General General Internal Medicine 04/18/22 04/22/22 Santosh Briones MD [address] [place], [place] [address] PCP - General General Internal Medicine 04/23/22 Julius Cho MD [address] [place] [address] Referring Physician Internal Medicine 04/23/22 Lew Ross MD [address] [place] [address] [address] [place] [address] Cardiology 08/13/23 Karlos Islas PA-C [address], [facility] [address] [place] [address] Cardiology 11/23/23 documented as of this encounter
--- OUTSIDE RECORDS SUMMARY | 2024-11-15 12:17 | XMS_ITS | Encounter Summary ---
Author Organization [employer] ([place], [place], [place], [place]) Address [address] [place] [address] Care Team Providers Care Sample Wrapper Name Role Phone Santosh Briones MD Primary Care Provider [phone] Santosh Briones MD Primary Care Provider [phone] Julius Cho MD Unavailable Lew Ross MD Unavailable Karlos Islas PA-C Unavailable Encounter Details Date Type Department Care Team (Late st Contact Info) Description 07/25/2021 Transcribed Document [facility] [place] Family [place] [address] [place] [address] ProviderAle MD [address] [place] [address] Social History Tobacco Use Types [...] speak a language other than Bolivian at [facility]? No 08/17/2023 Do you [...] Sex Assigned at Female 03/19/2022 10:49 AM FERRIS WHEEL ATTENDANT Legal Sex Female 5:46 PM CDT Gender Identity Female 03/19/2022 10:49 AM FERRIS WHEEL ATTENDANT Sexual Orientation Not on file COVID-19 Exposure Response Date Recorded In the last 10 days, have yo u been in contact with someone who was confirmed or suspected to have Coronavirus/COVID-19? No / Unsure 07/17/2022 7:53 AM EDT documented as of this encounter Miscellaneous Notes * Cerner Conversion Note - Historical Provider, - 07/25/2021 3:54 PM CDT Patient Education [...] eating solid foods. General instructions ??? Take tiqe-tpq-vgtxnub and prescription medicines only as told by [...] provider. Document Revised: 08/17/2020 Document Reviewed: 03/15/2020 [email or web address] Patient Education ? 2020 Comparameglio.it Inc. Procedures Endovenous Ablation, Care After This [...] and water are not available, use hand health director. ? Change your dressing as told by [...] health care provider. General instructions ??? Take fijz-arf-fbzcytt and prescription medicines only as told by [...] provider. Document Revised: 12/29/2018 Document Reviewed: 12/29/2018 [email or web address].it Patient Education ? 2020 [email or web address].[email or web address]. documented in this encounter Plan of Treatment Not on file documented as of this encounter Visit Diagnoses Not on filedocumented in this encounter Care Teams Sample Wrapper Relationship Specialty Start Date End Date Santosh Briones MD [address] [facility] [place] [address] PCP - General General Internal Medicine 04/18/22 04/22/22 Santosh Briones MD [address] [facility] [place] [address] PCP - General General Internal Medicine 04/23/22 Julius Cho MD [address] [place] [address] Referring Physician Internal Medicine 04/23/22 Lew Ross MD [address] [facility] [address] [place] [address] Cardiology 08/13/23 Karlos Islas PA-C [address] [place] [address] Cardiology 11/23/23 documented as of this encounter
--- OUTSIDE RECORDS SUMMARY | 2024-11-15 12:17 | XMS_ITS | Clinical Summary ---
Author Organization [employer] ([place], [place], [place], [place]) Address [address] [place] [address] Care Team Providers Care Bioinformatics Support Specialist Name Role Phone Santosh Briones MD Primary Care Provider [phone] Julius Cho MD Unavailable Lew Ross MD Unavailable Karlos Islas PA-C Unavailable [phone] Allergies Active Allergy Reactions Criticality Noted [...] Diabetes Mother Relation Name Status Comments Brother Josue Jimenez Father Ho Jimenez Mother Social History [...] Do you speak a language other than Korean at [facility]? No 08/17/2023 Do you want help with [...] Sex Assigned at Female 03/19/2022 10:49 AM OILING MACHINE OPERATOR Legal Sex Female 5:46 PM CDT Gender Identity Female 03/19/2022 10:49 AM OILING MACHINE OPERATOR Sexual Orientation Not on file Last Filed [...] and Screening (12+) 11/22/2024 11/23/2023 Influenza Vaccine (#1) 2025 01/23/2023 DTAP/TDAP/TD VACCINES (2 - T d or Tdap) 07/17/2032 07/17/2022 Pneumococcal 50+ years Completed 01/28/2024 Medical Devices Implanted Type Area Health Science Instructor Device Identifier Shelf Expiration Date Model / Serial / Lot Base Tib 18mm [id number] - [id number] Implanted:Qty : 1 on 04/23/2022 by Massimo Blake DPM at [facility] IMPLANTS Left: Ankle ARIAS MED GRP:ARIAS MED TECH 03/13/[id number] / / [id number] Stem Mid Tib 16mm [id number] - [id number] Implanted:Qty : 2 on 04/23/2022 by Massimo Blake, DPM at [facility] IMPLANTS Left: Ankle ARIAS MED GRP:ARIAS MED TECH 03/10/2030 / / [id number] Stem Top Tib 16mm [id number] - [id number] Implanted:Qty : 1 on 04/23/2022 by Massimo Blake, DPM at [facility] IMPLANTS Left: Ankle ARIAS MED GRP:ARIAS MED TECH 05/20/[id number] / / [id number] Cement Bone Smplx Tobra 40gm 6197-9-001 - [id number] Implanted:Qty : 3 on 04/23/2022 by Massimo Blake, DPM at [facility] IMPLANTS Left: Ankle GIUSEPPE:GIUSEPPE ORTHOPAEDICS 08/02/2023 6197-9-001 / / [id number] Tray Tib Sz4 L [id number] - [id number] Implanted:Qty : 1 on 04/23/2022 by Massimo Blake, DPM at [facility] IMPLANTS Left: Ankle ARIAS MED GRP:ARIAS MED TECH 02/20/[id number] / / [id number] Dome Inbone Talar Sulcus Sz 3 - [id number] Implanted:Qty : 1 on 04/23/2022 by Massimo Blake, DPM at [facility] IMPLANTS Left: Ankle ARIAS MED GRP:ARIAS MED TECH 10/31/20283 / / [id number] Insrt Crosslnk Poly Sz3 [id number] - [id number] Implanted:Qty : 1 on 04/23/2022 by Massimo Blake, DPM at [facility] IMPLANTS Left: Ankle ARIAS MED GRP:ARIAS MED TECH 02/17/[id number] / / [id number] Stem Talar 10mm [id number] - [id number] Implanted:Qty : 1 on 04/23/2022 by Massimo Blake, DPM at [facility] IMPLANTS Left: Ankle ARIAS MED GRP:ARIAS MED TECH 02/16/[id number] / / [id number] Bone Putty [facility] 620-005 - [id number] Implanted:Qty : 1 on 08/18/2023 by Massimo Blake DPM at [facility] IMPLANTS Left: Ankle BIOCOMPOSITES 03/03/2026 620-005 / / [id number] Insurance BLUE CROSS/BLUE SHIELD Advance Directives For more information, please contact: [phone] * Full Code (Latest Code Status on [...] 5:35 PM 08/18/2023 5:58 PM Care Teams Bioinformatics Support Specialist Relationship Specialty Start Date End Date Santosh Briones MD [address] [facility] [place] [address] PCP - General General Internal Medicine 04/23/22 Julius Cho MD [address] [place] [address] Referring Physician Internal Medicine 04/23/22 Lew Ross MD [address] [facility] [address] [place] [address] Cardiology 08/13/23 Karlos Islas PA-C [address], [facility] [address] [place] [address] Cardiology 11/23/23
--- OUTSIDE RECORDS SUMMARY | 2024-11-15 12:18 | XMS_ITS | Data Portability ---
Author Organization [facility] ADMIN Address [address] [place] [id number] Care Team Providers Care Nurse Discharge Name Role Phone NI SANTOS Primary Care Provider Assessment Encounter Date Assessment Date Assessment LastModified by Organization Details LastModified Time 06/25/2023 06/25/2023 The patient is a 58 year old female referred to [facility] by Dr. Feliep for management of chronic low back pain. [...] lumbar RFA. The procedure will be fluoroscopy-guide dAgnes * BLMBB L4-S1 * Order: Lumbar x [...] __ __ __ __ __ _ ALEIDA: [id number] I have reviewed patient's ALEIDA report prior to prescribing Schedule II, III, and IV medications that require review by law. [email or web address] Not available 06/25/2023 12:07:47 Plan of Treatment Reminders Order Date Submit Date Provider Last Modified By Organization Details Last Modified Time Details Appointments None recorded. Lab None recorded. Referral None recorded. Procedures medial branch block, lumbar (PROC) - 27767, 70869; Bilateral L4-S1 2023 024 [email or web address] Cuco Fajardo MD, [address], [address], [place], [address], 4 11:27:19 Surgeries None recorded. Imaging XR, lumbar spine - Assess overall bony data modeling architect ure of the lumbar spine and degree of degenerat wilian process prior to intervent ional procedure s. 2023 024 [email or web address] [facility] (Registration ), [address], [place], [address], 4 11:34:24 Medication Orders None recorded. Patient TargetsNo targets recorded. Patient InstructionsNo instructions recorded. Reason for Referral None Reported. Results Created Date Observation Date Name Description Value Unit Range Abnormal Flag Note LastModifiedBy Organization Detail LastModifiedTime 06/25/19 24 06/25/2023 lumba r spine 2 to 3V [facility] [address] [place] [address] Phone: Fax: Name: JANIS FIGUEREDO Exam Date: : 963 Age 58 Gender : F Access ion: [id number] Physic nia: CUCO BALES Facili ty: [facility] Facili ty HSV: Outpat ient Exam: LUMBAR [...] Thank you for referr SATYA CedenoA to [facility] al. Legall y authen ticate d by EMILIA GARCIA 06-25 10:55: 27 CC'ed Logic: Orderi ng Provid er: MABEL NORWOOD Attend ing Provid er: MABEL NORWOOD Admitt ing Provid er: MABEL NORWOOD [email or web address] [facility] - Physical Therapy [address], [place], [address], 07/06/2023 09:37:21 Result Notes None recorded. Problems Name Problem SNOMED Code Status Onset Date Resolution Date Notes Provider Name and Address Organization Details Recorded Time Hypertensive disorder 91689314 [facility] [place] [facility] [place] & [place] 4 09:19:41 Heart disease 39628126 Active 2023 [facility] th null, [place] - [place] [place] & [place] 4 09:19:49 Arthritis 5904319 [facility] [place] & [place] 4 09:19:55 Osteoporosis 19456778 [facility] [place] - [facility] [place] & [place] 4 09:20:06 Gastroesophage al reflux disease 929749404 Active 2023 [facility] th null, [place] - [facility] [place] & [place] 4 09:20:11 Hernia repair Active 2023 [facility] null, [place] - [facility] [place] & [place] 4 09:20:16 Problem Notes None recorded. Procedures Surgical History Date Name Laterality Status Provider Name and Address Organization Details Recorded Time bypass of stomach completed [facility] [place] [facility] [place] 06/25/2023 09:20:59 ankle reconstruction completed [facility] [place] [facility] [place] 06/25/2023 09:21:11 Cholecystectomy completed [facility] [place] [facility] [place] 06/25/2023 09:21:18 Breast augmentation w/implt completed [facility] [place] - [facility] - [place] & [place] 06/25/2023 09:21:28 Imaging Results None recorded. Procedure Notes None recorded. Medical Equipment None Reported. Allergies Allergen ID Allergen Name Allergen Category Reaction Reaction Severity Criticality Documentation Date Start Date Code Code System Note Provider Name and Address Organization Details Recorded Time 239358 morphine medicatio n chest pain Not available Not available 06/25/2023 7052 [facility], [facility] & [place] 4 08:56:59 362050 Bactrim medicatio n nausea Not available Not available 06/25/2023 19916 9 [facility], [facility] [place] 4 08:57:22 Medications Name Sig Start Date [...] blood by Pulse oximetry Heart rate Systolic And Diastolic Provider Name and Address Organization Details Last Updated DateTime 4 522644. 46 g 97.2 [degF] 96 % 96 % 60 /min 159/95 mm[Hg] [facility] [place] 4 08:56:10 Social History None recorded. 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 773825847 M99.53 Health Concerns Section Related Observation LastModified by Organization Detai ls LastModified Time None Recorded Concern Status LastModified by Organization Details LastModified Time None Recorded Advance Directives Directive None Recorded Payers Insurance Date Sequence Insurance Name Policy Number Policy Mcduffie Covered Member ID Mcduffie Member ID Guarantor Name 07/08/2023 1 [facility] [id number] Jose Ramon Figueredo [id number] Janis Figueredo Notes Date Note Type Note Provider Name and Address Organization Details Recorded Time text/html The patient is a 58 year old female referred to [facility] by Dr. Felipe for management of [...] : Left knee MRI Cuco Fajardo MD [address], [place], [address], [facility] - [facility] & [place] 07/01/2023 11:45:50 OBGyn Episode No OBEpisode recorded.
--- OUTSIDE RECORDS SUMMARY | 2024-11-15 12:18 | XMS_ITS | Patient Health Record ---
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
--- OUTSIDE RECORDS SUMMARY | 2024-11-15 12:18 | XMS_ITS | Clinical Summary ---
Author Organization [facility] Address [address] [place] [address] Care Team Providers Care Spinner Hand Name Role Phone Santosh Briones MD Primary Care Provider [phone] Social History Tobacco Use Types Packs/Day Years [...] 2013 [facility]-Zoster Vaccines (1 of 2) 2013 [facility]-OCZES-78 Vaccine (5 - season) 2024 10/29/2021, 02/01/2021, 05/23/2020, Additional history exists [facility]-Influenza Vaccine (#1) 2025 [facility]-RSV Vaccine: 60+ Years or (1 [...] to complete this topic Insurance Care Teams Spinner Hand Relationship Specialty Start Date End Date Santosh Briones MD [address] [place] [address] PCP - General 12/31/21
--- OUTSIDE RECORDS SUMMARY | 2024-11-15 12:18 | XMS_ITS | Data Portability ---
Author Organization [facility] ROBI Jane GREGORY CLOSED Address [address] [place] [address] Assessment No assessment recorded. Plan of Treatment Reminders Order Date Submit Date Provider Last Modified By Organization Details Last Modified Time Details Appointments None recorded. Lab None recorded. Referral home health referral - 1-2 visits per week for 4-6 weeks. Range of motion and strength, modalities, manual therapy, and development of home exercise program per therapist discretion. *Begin with ROM to start, pt is WBAT* 2022 023 [email or web address] [facility], [address], [address], [place], [address], 3 09:33:59 physical therapist referral - 1-2 visits per week for 4-6 weeks. Range of motion and strength, modalities, manual therapy, and development of home exercise program per therapist discretion. *Begin with ROM to start, pt is WBAT* 2022 023 [facility], [address], [place], [address], 3 22:51:41 home health referral - 1-2 visits of home health PT per week for 6-8 weeks. Range of motion up to 30-45 degrees for the next two weeks, toe touch weighbearin g to start, progressing to partial WB over the course of the next two weeks. Strength, modalities, manual therapy, and development of home exercise program per therapist discretion. 2022 023 [email or web address] [facility], [address], [address], [place], [address], 3 11:57:29 Procedures None recorded. Surgeries None recorded. Imaging None recorded. Medication Orders None recorded. Patient TargetsNo targets recorded. Patient InstructionsNo instructions recorded. Reason for Referral Home Health Referral for Marisol sed fracture of lateral condyle of left femur 1-2 visits of home health PT per week for 6-8 weeks. Range of motion up to 30-45 degrees for the next two weeks, toe touch weighbearing to start, progressing to partial WB over the course of the next two weeks. Strength, modalities, manual therapy, and development of home exercise program per therapist discretion. Referring Physician: Paulie Gooden, Orthopedic Surgery, Encounter Date: 08/12/2022 Home Health Referral for Marisol sed fracture of lateral condyle of left femur 1-2 visits per week for 4-6 weeks. Range of motion and strength, modalities, manual therapy, and development of home exercise program per therapist discretion.*Begin with ROM to start, pt is WBAT* Referring Physician: Paulie Gooden, Orthopedic Surgery, Encounter Date: 08/26/2022 Physical Therapist Referral for Closed fracture of lateral condyle of left femur 1-2 visits per week for 4-6 weeks. Range of motion and strength, modalities, manual therapy, and development of home exercise program per therapist discretion.*Begin with ROM to start, pt is WBAT* Referring Physician: Paulie Gooden, Orthopedic Surgery, Encounter Date: 08/26/2022 Results Created Date Observation Date Name Description Value Unit Range Abnormal Flag Note LastModifiedBy Organization Detail LastModifiedTime 08/13/19 23 08/12/2022 XR, knee, 1 or 2 view [facility] [address] [place] [address] Sadi martin Name: JANIS FIGUEREDO Davidashahzad veronica : 963 Davidashahzad martin 55 Orderi ng Provid er: PAULIE GOODEN EXAM DATE: 2022 EXAM: XR LT KNEE 1 OR 2 VIEWS COMPAR ALTA: None. HISTOR Y: Follow -up of a fractu re. FINDIN GS: No displa val fractu re is identi fied. There are modera te degene rative change s in the left knee. There is modera te medial joint space loss. There is modera te margin al spurri ng. IMPRES ZOHRA: 1. No defini te fractu re is seen of the left knee. There are modera te degene rative change s in the left knee. Interp reted By: Deandra aguilera MD Electr onical ly Signed By: Deandra aguilera MD on 023 2:12 PM [email or web address] [facility] [place] [address], [place], [address], 09/11/2022 09:34:11 08/27/19 23 08/26/2022 XR, knee, 1 or 2 view [facility] [address] [place] [address] Sadi martin Name: JANIS martin : 963 Sadi martin 55 Orderi ng Provid er: [facility]IE [facility] EXAM DATE: 2022 EXAM: XR LT KNEE 1 OR 2 VIEWS COMPAR ALTA: HISTOR Y: Left knee pain. FINDIN GS: No displa val fractu re is identi fied. There are modera te degene rative change s in the left knee. There is mild to modera te medial joint space loss. There is modera te margin al spurri ng. IMPRES ZOHRA: 1. There are modera te degene rative change s in the left knee. A nondis placed fractu re cannot be exclud ed. Interp reted By: Deandra aguilera MD Electr onical ly Signed By: Deandra aguilera MD on 023 10:10 AM [email or web address] [facility] [place] [address] , [place], [address], 09/10/2022 16:48:12 05/09/20 23 09/09/2022 XR, knee, 1 or 2 view [facility] [address] [place] [address] Sadi martin Name: JANIS martin : 963 Sadi martin 55 Orderi ng Provid er: [facility] EXAM DATE: 2022 EXAM: XR LT KNEE 1 OR 2 VIEWS COMPAR ALTA: 023 HISTOR Y: Follow -up of a fractu re. FINDIN GS: No displa val fractu re is identi fied. There are modera te degene rative change s in the left knee. There is mild to modera te medial joint space loss. There is modera te margin al spurri ng. IMPRES ZOHRA: 1. There are modera te degene rative change s in the left knee. A nondis placed fractu re cannot be exclud ed. Interp reted By: Deandra aguilera MD Electr onical ly Signed By: Deandra aguilrea MD on 09/10/19 23 9:00 AM [email or web address] [facility] [place] [address] , [place], [address], 09/10/2022 16:32:20 10/01/19 23 09/30/2022 XR, knee, 1 or 2 view Saqib garcia [facility] [address] [place] [address] Sadi martin Name: JANIS martin : 963 Sadi martin 55 Orderi ng Provid er: [facility] EXAM DATE: 2022 EXAM: XR LT KNEE 1 OR 2 VIEWS COMPAR ALTA: 09/10/19 23 HISTOR Y: Follow up of fractu re. FINDIN GS: Again seen is a probab le fractu re of the latera l femora l condyl e which is minima lly displa val. There are severe degene rative change s in the left knee. IMPRES ZOHRA: 1. There is unchan ged alignm ent of the fractu re of the distal left femur. Interp reted By: TimLila aguilera MD Electr on ly Signed By: Deandra aguilera MD on 023 9:15 AM [email or web address] [facility] [address] , [place], [address], 11/26/2022 16:01:04 Result Notes Documentation Provider Name and Address Organization Details Recorded Time Xr, Knee, 1 Or 2 View : [place] [address] [place] [address] Patient Name: JANIS FIGUEREDO Patient : 1965 Patient Ordering Provider: PAULIE GOODEN EXAM DATE: 08/12/2022 EXAM: XR LT KNEE 1 OR 2 VIEWS COMPARISON: None. HISTORY: Follow-up of a fracture. FINDINGS: No displaced fracture is identified. There are moderate degenerative changes in the left knee. There is moderate medial joint space loss. There is moderate marginal spurring. IMPRESSION: 1. No definite fracture is seen of the left knee. There are moderate degenerative changes in the left knee. Interpreted By: Diego Brower MD IE GOODEN PA-C [address] [place] [address], [address], [facility] 09/11/2022 09:34:11 Xr, Knee, 1 Or 2 View : [facility] [address] [address] Patient Name: JANIS FIGUEREDO Patient : 1965 Patient Ordering Provider: PAULIE GOODEN EXAM DATE: 08/26/2022 EXAM: XR LT KNEE 1 OR 2 VIEWS COMPARISON: 08/12/2022 HISTORY: Left knee pain. FINDINGS: No displaced fracture is identified. There are moderate degenerative changes in the left knee. There is mild to moderate medial joint space loss. There is moderate marginal spurring. IMPRESSION: 1. There are moderate degenerative changes in the left knee. A nondisplaced fracture cannot be excluded. Interpreted By: Diego Brower MD IE GOODEN PA-C [address] [place], [address], [facility] 09/10/2022 16:48:12 Xr, Knee, 1 Or 2 View : [facility] [address] [place] [address] Patient Name: JANIS FIGUEREDO Patient : 1965 Patient Ordering Provider: PAULIE GOODEN EXAM DATE: 09/09/2022 EXAM: XR LT KNEE 1 OR 2 VIEWS COMPARISON: 08/26/2022 HISTORY: Follow-up of a fracture. FINDINGS: No displaced fracture is identified. There are moderate degenerative changes in the left knee. There is mild to moderate medial joint space loss. There is moderate marginal spurring. IMPRESSION: 1. There are moderate degenerative changes in the left knee. A nondisplaced fracture cannot be excluded. Interpreted By: Diego Brower MD IE GOODEN PA-C [address] [place], [address], [facility] 09/10/2022 16:32:20 Xr, Knee, 1 Or 2 View : [place] [address] [place] [address] Patient Name: JANIS FIGUEREDO Patient : 1965 Patient Ordering Provider: PAULIE GOODEN EXAM DATE: 09/30/2022 EXAM: XR LT KNEE 1 OR 2 VIEWS COMPARISON: 09/09/2022 HISTORY: Followup of fracture. FINDINGS: Again seen is a probable fracture of the lateral femoral condyle which is minimally displaced. There are severe degenerative changes in the left knee. IMPRESSION: 1. There is unchanged alignment of the fracture of the distal left femur. Interpreted By: Diego Brower MD IE GOODEN [facility]-C [address] [facility] [place], [address], [facility] 11/26/2022 16:01:04 Procedures Surgical History Date Name Laterality Status Provider Name and Address Organization Details Recorded Time 04/23/20 prosthetic total arthroplasty of ankle completed Elena Jacob [facility] 09/09/2022 09:02:08 Imaging Results None recorded. Procedure Notes None recorded. Medical Equipment None Reported. Allergies Allergen ID Allergen Name Allergen Category Reaction Reaction Severity Criticality Documentation Date Start Date Code Code System Note Provider Name and Address Organization Details Recorded Time 779593 Bactrim medicatio n Not available Not available Not available 08/12/2022 87102 9 RxNorm Jesu [facility] 3 14:02:58 158162 morphine medicatio n Not available Not available Not available 08/12/2022 7052 RxNorm Jesu [facility] 3 14:03:05 Medications Name Sig Start Date Stop Date Status Note LastModified by Organization Details LastModified Time furosemide 40 mg tablet Take 1 tablet every day by oral route. active Not Available Not Available No t Available atorvastatin 80 mg tablet Take 1 tablet every day by oral route. active Not Available Not Available No t Available pantoprazole 40 mg tablet,delayed release Take 1 tablet every day by oral route. active Not Available Not Available No t Available folic acid 1 mg tablet Take 1 tablet every day by oral route. active Not Available Not Available No t Available potassium 750mg active Not Available Not Jeniffer ilable Not Available B-12 Plus active Not Available Not Jeniffer ilable Not Available Eliquis 5 mg tablet Take 1 tablet twice a day by oral route. active Not Available Not Available No t Available Vitals Date Recorded Body height Provider Name an d Address Organization Details Last Updated DateTime 08/12/2022 170.18 cm Jesu Jeter [facility] 08/12/2022 14:02:31 Date Recorded Body height Provider Name an d Address Organization Details Last Updated DateTime 08/26/2022 170.18 cm Eyad Iam [facility] 09:57:49 Date Recorded Body height Body mass index (BMI) Body weight Provider Name and Address Organization Details Last Updated DateTime 09/09/2022 170.18 cm 43.9 kg/m2 382515.86 g Elena Jacob [facility] 09/09/2022 09:00:04 Date Recorded Body height Body mass index (BMI) Body weight Provider Name and Address Organization Details Last Updated DateTime 09/30/2022 170.18 cm 43.9 kg/m2 418077.86 g Jesu Jeter [facility] 09/30/2022 09:13:05 Date Recorded Body height Body mass index (BMI) Body weight Provider Name and Address Organization Details Last Updated DateTime 10/28/2022 170.18 cm 43.9 kg/m2 649292.86 g Eyad Vitale [facility] 10/28/2022 08:57:51 Social History Question Answer Notes LastModified by Organizat ion Details LastModified Time Tobacco Smoking Status [facility]/09/2022 09:00:55 What Is Your Level Of Caffeine Consumption? Moderate [email or web address] Information not available 09/09/2022 What Was The Date Of Your Most Recent Tobacco Screening? 09/09/2022 Information not available 09/09/2022 Has Tobacco Cessation Counseling Been Provided? No [email or web address] Information not available 09/09/2022 Sex: Unknown Functional Status Question Answer Note LastModified by Organizat ion Details LastModified Time Do you use any illicit or recreational drugs? No [email or web address] Information not available 09/09/2022 Do you or have you ever used any other forms of tobacco or nicotine? No [email or web address] Information not available 09/09/2022 What is your level of alcohol consumption? None [email or web address] Information not available 09/09/2022 Mental Status None recorded. Family History Nothing Reported. Medical History Condition Response Allergies/Hayfever N Anxiety/Depression N Gout N Other N Thyroid Disease N Kidney Stones N Heart Conditions N Hernia N Migraines N COPD N Glaucoma N Pneumonia N Skin Problems N Immune System Disorder N Anesthesia Complications N Heart Attack ([place]) N Mental Illness N Neurological Problems N Diabetes N Rheumatic Fever N Bleeding Disorder N Arthritis N Seizures/Epilepsy N Blood Clot N Tuberculosis N Genetic Disorder N AIDS/HIV N Cancer N Stroke N Asthma N Blood Thinners Y Alcohol Overuse/Alcohol Abuse N Sleep Apnea N High Cholesterol Y Liver Disease N Included as Review of Systems N Hypertension N Osteoporosis N Kidney Disease N Gynecological HistoryNo gynecological history recorded. Obstetrics History GPAL:G 0 P 0 0 0 0 Immunizations Vaccine Type Date Status Note Provider Nam e and Address Organization Details Recorded Time COVID-19, mRNA, LNP-S, PF, 30 mcg/0.3 mL dose 05/23/2020 completed Elena Hubbardon null, [facility] 09/09/2022 09:00:22 COVID-19, mRNA, LNP-S, PF, 30 mcg/0.3 mL dose 10/29/2021 completed Elena Hubbardon null, [facility] 09/09/2022 09:00:22 COVID-19, mRNA, LNP-S, PF, 30 mcg/0.3 mL dose 02/01/2021 completed Elena Jacob null, [facility] 09/09/2022 09:00:22 COVID-19, mRNA, LNP-S, PF, 30 mcg/0.3 mL dose 05/03/2020 completed Elena Hubbardon null, [facility] 09/09/2022 09:00:22 Tdap 07/17/2022 [facility] 09:00:22 Past Encounters Encounter ID Performer Location Encounter Start Date Encounter Closed Date Diagnosis/Indication Diagnosis SNOMED-CT Code Diagnosis ICD10 Code Diagnosis Note [id number] PAULIE GOODEN PA-C [facility] [address] [place] [address] 08/12/2022 13:21:20 08/12/2022 14:55:58 Closed fracture of lateral condyle of left femur [id number] S72.422A Assessment : Closed lateral femoral condyle fracture with mild displaceme nt. Plan: Dr. Nueñz consulted on the case today. Knee immobilize r for ambulation , put an order in for home health physical therapy. States she will use a walker most likely for ambulation . Follow-up in 2 weeks for repeat x-rays on arrival and recheck. [id number] PAULIE GOODEN PA[facility]C [facility] [address] [address] 08/26/2022 09:17:49 08/26/2022 10:13:28 Closed fracture of lateral condyle of left femur [id number] S72.422D Assessment : Follow-up of mildly displaced lateral femoral condyle fracture Plan: Continue with knee immobilize r for ambulation begin gentle range of motion with therapy. Follow-up in 2 weeks for repeat x-rays on arrival and recheck. [id number] PAULIE GOODEN PA[facility] [address] [place] [address] 09/09/2022 08:45:36 09/09/2022 09:23:43 Closed fracture of lateral condyle of left femur 7642011202 [id number] S72.422D Assessment : Status nearly 8 weeks lateral femoral condyle fracture with well-maint ained alignment, compared to last visit studies Plan: She still does not feel entirely confident with the quad strength at this point, T scope ordered, I would like her to use that locked out for ambulation for the rest of this week to give her more time to work on the quad. She is nearly 8 weeks out from injury at this point. Beginning next week, she may unlock the T scope to 90 degrees flexion and 0 degrees extension for ambulation , continuing to use the walker and work on good quad strengthen ing while at PT. Follow-up in 3 weeks for recheck, no x-rays needed at that visit. [id number] PAULIE GOODEN PA[facility]C [facility] [address] [place] [address] 09/30/2022 08:53:14 09/30/2022 09:32:35 Closed fracture of lateral condyle of left femur [id number] S72.422D Assessment : Follow-up of lateral femoral condyle fracture Plan: She is doing great from a knee perspectiv e but still using the crutches a bit from the ankle surgery that she had. Follow-up in 4 weeks for recheck of the left knee. No x-rays needed at that time. [id number] PAULIE GOODEN PA-C [facility] [address] [place] [address] 10/28/2022 08:51:03 10/28/2022 09:08:47 Closed fracture of lateral condyle of left femur [id number] S72.422D Assessment : Follow-up of lateral femoral condyle fracture Plan: From a knee perspectiv e I think she has progressed nicely. By her own account she feels as though she is headed in the right direction. She still has some lingering issues with the ankle following the surgery. She may follow-up with me on an as needed basis going forward. Health Concerns Section Related Observation LastModified by Organization Detai ls LastModified Time None Recorded Concern Status LastModified by Organization Details LastModified Time None Recorded Advance Directives Directive None Recorded Payers Insurance Date Sequence Insurance Name Policy Number Policy Mcduffie Covered Member ID Mcduffie Member ID Guarantor Name 08/26/2023 1 [id number] Jose Ramon Figueredo [id number] Janis Figueredo 08/24/2023 GENERIC INSURANCE - MOVED-HOLD Janis Figueredo 09/15/2024 PAYMENT PLAN Janis Figueredo 08/28/2023 1 [place] [id number] Janis Figueredo [id number] Janis Figueredo Notes Date Note Type Note Provider Name and Address Organization Details Recorded Time 08/12/2022 text/html WHAT: Left Knee.WHEN: [id number]: tripped and fellSYMPTOMS: pain, swelling, bruisingPain is intermittent dull ache in nature.The patient does not have numbness or tinglingThey do not have popping and clickingThey are able to sleep comfortably with this injury.Their pain is made better with resting the limbTheir pain is exacerbated by putting weight on and moving the affected limbOverall, the patient would say that their pain is well-controlled at this time PAIN: 10X-RAY: LCMRI:PT:INJECTION : PAULIE GOODEN PA-C [address] [place], [address], [facility] 08/26/2022 16:24:18 08/26/2022 text/html Patient comes in today for FU Left foot. Patient states they are better than last visit. Patient denies new injury since last visit Pain is intermittent dull ache in nature. The patient does not have numbness or tingling They do not have popping and clicking They are not able to sleep comfortably with this injury. Their pain is made better with resting the limb Their pain is exacerbated by putting weight on and moving the affected limb Overall, the patient would say that their pain is well-controlled at this time. PAULIE GOODEN PA-C [address] [place], [address], [facility] 09/11/2022 10:31:35 09/09/2022 text/html Patient comes in today for FU Left Knee.Patient states they are better than last visit.Patient denies new injury since last visitPain is intermittent dull ache in nature.The patient does not have numbness or tinglingThey do not have popping and clickingThey are able to sleep comfortably with this injury.Their pain is made better with resting the limbTheir pain is exacerbated by nothingOverall, the patient would say that their pain is well-controlled at this time. PAULIE GOODEN PA-C [address] [place], [address], [facility] 09/09/2022 09:31:11 09/30/2022 text/html Patient comes in today for FU Left Knee.Patient states they are better than last visit.Patient denies new injury since last visitThe patient does not have numbness or tinglingThey do not have popping and clickingThey are able to sleep comfortably with this injury.Their pain is made better with resting the limbTheir pain is exacerbated by nothingOverall, the patient would say that their pain is well-controlled at this time. PAULIE GOODEN PA-C [address] [place], [address], [facility] 10/18/2022 16:55:34 10/28/2022 text/html Patient comes in today for FU Left Knee.Patient states they are better than last visit.Patient denies new injury since last visitPain is intermittent dull ache in nature.The patient does not have numbness or tinglingThey have popping and clickingThey are able to sleep comfortably with this injury.Their pain is made better with resting the limbTheir pain is exacerbated by putting weight on and moving the affected limbOverall, the patient would say that their pain is not well-controlled at this time.Still notes some popping in the knee and stiffness in the morning. PAULIE GOODEN PA-C [address] [place], [address], [facility] 10/28/2022 10:39:06 OBGyn Episode No OBEpisode recorded.
[2024-11-15 13:08] LABS: Alanine Aminotransferase 15 U/L (12-78); Albumin Level 3.7 g/dl (3.5-5.0); Albumin/Globulin Ratio 1.3 (1.1-1.8); Alkaline Phosphatase 109 U/L (38-126); Anion Gap 15.1 mEq/L (5-15); Aspartate Amino Transferase 23 U/L (14-36); Bilirubin,Total 0.7 mg/dl (0.2-1.3); Blood Urea Nitrogen 18 mg/dl (7-17); Calcium 9.3 mg/dl (8.4-10.2); Carbon Dioxide 27 mmol/L (22.0-30.0); Chloride 101 mmol/L (98-107); Creatinine,Serum 0.70 mg/dl (0.52-1.04); Estimated Glomerular Filt Rate 85 ml/min (>60); GFR (African American) 103 ML/MIN (>60); Globulin 2.9 g/dL (1.3-3.2); Glucose 100 mg/dl (74-100); Potassium 4.1 mmoL/L (3.5-5.1); Sodium 139 mmol/L (136-145); Total Protein,Serum 6.6 g/dl (6.3-8.2)
[2024-11-16 11:43] LABS: RPR W/RFX Titers Nonreactive (Nonreactive)
[2024-11-20 03:37] LABS: 1,25 Dihydroxy Vitamin D 94 pg/mL (.); 1,25-Dihydroxy, Vitamin D-2 30 pg/mL (.); 1,25-Dihydroxy, Vitamin D-3 64 pg/mL (.)
== END 2024-11-15 23:59 | disposition home or self-care (01) ==
LOC: LAB 12:15
PROVIDERS: PCP Nurse Practitioner Family; Visit Provider Obstetrics & Gynecology
DX: M81.0 Age-related osteoporosis without current pathological fracture (principal); Z01.419 Encounter for gynecological examination (general) (routine) without abnormal findings
CPT/HCPCS: 36415; 80053; 80074; 82652; 86592; 87389

== ENCOUNTER 2024-11-28 12:29 | Outpatient (CLI) | payer MEDICARE, SELFPAY ==
--- OUTSIDE RECORDS SUMMARY | 2024-11-28 12:35 | XMS_ITS | Clinical Summary ---
Author Organization [facility] Address [address] [place] [address] Phone Care Team Providers Care Pelletizer Tender Name Role Phone Chris Nunn MD [ ] Conditions or Problems Problem Name Problem Code Onset Date Status Entry Date Provider Comment Standard Description Annotate Hx of pulmonary embolism 542177556 (SNOMED CT) 08/25 Resolved 08/25 Natalia Herron H/O: pulmonary embolus Morbid obesity due to excess calories E66.01 (ICD-10-CM ) 08/25 Active 08/25 Natalia Herron Morbid (severe) obesity due to excess calories Benign Essential Hypertension 67230744 (SNOMED CT) 08/25 Active 08/25 Natalia Herron Benign hypertension Candidiasis of vulva and vagina, acute B37.31 (ICD-10-CM ) 09/20 Active 09/20 Natalia Herron Acute candidiasis of vulva and vagina Yeast infection 6191534 (SNOMED CT) 09/20 Inactive 09/20 Chris Nunn MD Mycosis Scleroderma 59011855 (SNOMED CT) 08/25 Active 08/25 Dania Faulkner Systemic sclerosis Personal history of allergy Bactrim 308506340 (SNOMED CT) 08/25 Active 08/25 Dania Faulkner 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 use of anticoagulan ts 956208978 (SNOMED CT) 08/25 Active 08/25 Dania Faulkner Drug therapy finding Hx of pulmonary embolism 179521933 (SNOMED CT) 08/25 Removed 08/25 Dania Faulkner H/O: pulmonary embolus Presence of left artificial ankle joint 077287535 (SNOMED CT) 08/25 Active 08/25 Dania Faulkner Prosthetic total arthroplasty of ankle Morbid obesity 954117249 (SNOMED CT) 08/25 Inactive 08/25 Dania Faulkner Morbid obesity CAD (coronary artery disease) 14460505 (SNOMED CT) 08/25 Active 08/25 Dania Faulkner Coronary arteriosclerosis Hypertension 90958051 (SNOMED CT) 08/25 Inactive 08/25 Dania Faulkner Hypertensive disorder Chronic ulcer of left ankle, skin layer only 472093243 (SNOMED CT) 08/25 Active 08/25 Dania Faulkner Chronic ulcer of ankle Cellulitis of left lower limb 354159574 (SNOMED CT) 08/20 Active 08/20 Dania Faulkner Cellulitis of leg, excluding foot Chronic osteomyeliti s, left ankle 023850108 (SNOMED CT) 08/20 Active 08/20 Dania Faulkner Chronic osteomyelitis of ankle and/or foot Medications Medication Instructions Start Date Stop Date Generic Name NDC Provider MINOCYCLINE HCL 100 MG TABS Take 1 tablet by mouth once a day minocycline 12544021678 Chris Nunn MD DIFLUCAN 200 MG TABS 1 tablet by mouth once a day as needed for yeast infection fluconazole 28435932609 Chris Nunn MD DOXYCYCLINE HYCLATE 100 MG CAPS 1 capsule by mouth once a day doxycycline hyclate 31679018490 Chris Nunn MD FOLIC ACID 400 MCG TABS Take 2 tablet by mouth once a day folic acid 63703159454 Margaret Bermudez ACETAMINOPHEN 500 MG TABS Take 1 tablet by mouth every six hours as needed acetaminophen 67377738614 Margaret Bermudez NATURAL VITAMIN D-3 125 MCG (5000 UT) TABS Take 1 tablet by mouth once a day cholecalciferol (vitamin d3) 64541477010 Margaret Bermudez ASPIRIN LOW DOSE 81 MG TBEC Take 1 tablet by mouth once a day aspirin 16698376662 Margaret Bermudez FUROSEMIDE 40 MG TABS Take 1 tablet by mouth once a day furosemide 37753247660 Margaret Bermudez apixaban (Eliquis) 5 mg Tab tablet Take 1 tablet by mouth twice a day Eliquis Margaret Bermudez PANTOPRAZOLE SODIUM 40 MG TBEC Take 1 tablet by mouth once a day pantoprazole 80930377440 Margaret Bermudez VITAMIN B-12 1000 MCG TABS Take 1 tablet by mouth once a day cyanocobalamin (vitamin b-12) 22101203871 Margaret Bermudez SACCHAROMYCES BOULARDII 250 MG CAPS Take 1 capsule (250 mg total) by mouth 2 (two) times daily for 7 days. saccharomyces boulardii 27115654770 QIE qieuser PANTOPRAZOLE SODIUM 40 MG TBEC Take 1 tablet (40 mg total) by mouth daily. pantoprazole 14260673191 QIE [facility] FUROSEMIDE 40 MG TABS Take 1 tablet (40 mg total) by mouth daily. furosemide 21982184876 QIE [facility]ieuser FOLIC ACID 400 MCG TABS Take 2 tablets (800 mcg total) by mouth daily. folic acid 42194502872 QIE [facility]ieuser VITAMIN B-12 1000 MCG TABS Take 1 tablet (1,000 mcg total) by mouth daily. cyanocobalamin (vitamin b-12) 94553775946 QIE [facility]ieuser NATURAL VITAMIN D-3 125 MCG (5000 UT) TABS Take 1 tablet (5,000 Units total) by mouth daily. cholecalciferol (vitamin d3) 28046291154 QIE [facility]ieuser ASPIRIN LOW DOSE 81 MG TBEC Take 1 tablet (81 mg total) by mouth daily. aspirin 06207909616 QIE qieuser apixaban (Eliquis) 5 mg Tab [...] down for the next 30 min.. alendronate 48291783900 QIE qieuser ACETAMINOPHEN 500 MG TABS Take 1 tablet (500 mg total) by mouth every 6 (six) hours as needed for up to 10 days. acetaminophen 93679436592 QIE qieuser Cubicin RF 500 mg intravenous solution 500mg IV Q24hrs/ OPAT daptomycin 51013947613 Jasmin Proctor RN CEFTRIAXONE SODIUM 2 GM SOLR 2gm IV Q24hrs/ OPAT ceftriaxone 84109514991 Jasmin Proctor RN Medications Administered No information [...] Procedures Code Procedure Name Date Entry Date CPT-89592 CMP [id number] CBC with Differential 2023 CPT-02695 C- reactive protein CPT-10287 Sedimentation Rate (ESR) 202 08/10/07 CPT-coral Change [...]
--- OUTSIDE RECORDS SUMMARY | 2024-11-28 12:35 | XMS_ITS | Encounter Summary ---
Author Organization [employer] ([place], [place], [place], [place]) Address [address] [place] [address] Care Team Providers Care Machine Biller Name Role Phone Santosh Santos MD Primary Care Provider [phone] Santosh Santos MD Primary Care Provider [phone] Julius Cho MD Unavailable Nader Wu MD Unavailable Karlos Islas PA-C Unavailable [phone] Encounter Details Date Type Department Care Team (Late st Contact Info) Description 07/25/2021 Transcribed Document [facility] [address] [place] [address] ProviderAle MD [address] [place] [address] Social History Tobacco Use Types [...] Do you speak a language other than Guamanian at [facility]? No 08/17/2023 Do you [...] Sex Assigned at Female 03/19/2022 10:49 AM CRM TECHNICAL LEAD Legal Sex Female 5:46 PM CDT Gender Identity Female 03/19/2022 10:49 AM CRM TECHNICAL LEAD Sexual Orientation Not on file COVID-19 Exposure Response Date Recorded In the last 10 days, have yo u been in contact with someone who was confirmed or suspected to have Coronavirus/COVID-19? No / Unsure 07/17/2022 7:53 AM EDT documented as of this encounter Miscellaneous Notes * Cerner Conversion Note - Historical Provider, - 07/25/2021 4:01 PM CDT [facility] [address] [place], [place] [id number] JANIS FIGUEREDO :1965 Visit Time:07/25/2021 Your Visit [...] MD-CAR When Comments Follow-up as instructed Where: [address] [place] [address] [address] [place] [address]- Medications What How Much When Instructions Next [...] and water are not available, use hand bee producer. ? Change your dressing as told by [...] health care provider. General instructions ??? Take kzwx-zks-uvatzqc and prescription medicines only as told by [...] provider. Document Revised: 12/29/2018 Document Reviewed: 12/29/2018 [employer] Patient Education ?? 2020 [employer] Moderate Conscious Sedation, Adult, Care After [...] eating solid foods. General instructions ??? Take essg-jin-fhrexkx and prescription medicines only as told by [...] provider. Document Revised: 08/17/2020 Document Reviewed: 03/15/2020 [email or web address] Patient Education ?? 2020 [employer] Emergency Awareness and Preventative Care STROKE [...] Assistance with quitting is available by contacting 6-266-ZBBS-NOW. This is a free resource providing counseling, [...] was given the opportunity to ask questions. Patient/Melt Superintendant Name: Patient/Melt Superintendant Signature: Relationship to Patient: Clinician/Hospital Melt Superintendant Signature: Date: documented in this encounter Plan of Treatment Not on file documented as of this encounter Visit Diagnoses Not on filedocumented in this encounter Care Teams Machine Biller Relationship Specialty Start Date End Date Santosh Santos MD [facility] [address] [place], [place] [id number] PCP - General General Internal Medicine 04/18/22 04/22/22 Santosh Santos MD [address] [facility] [place] [address] [place] [address] PCP - General General Internal Medicine 04/23/22 Julius Cho MD [address] [place] [address] Referring Physician Internal Medicine 04/23/22 Nader Wu MD [address] [facility] [address] [place] [address] Cardiology 08/13/23 Karlos Islas PA-C [address] [place] [address] Cardiology 11/23/23 documented as of this encounter
--- OUTSIDE RECORDS SUMMARY | 2024-11-28 12:35 | XMS_ITS | CCD ---
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
--- OUTSIDE RECORDS SUMMARY | 2024-11-28 12:35 | XMS_ITS | Encounter Summary ---
Author Organization [employer] ([place], [place], [place], [place]) Address [address] [address] Care Team Providers Care Embossing Calender Operator Name Role Phone Santosh Briones MD Primary Care Provider [phone] Santosh Briones MD Primary Care Provider [phone] Julius Cho MD Unavailable Lew Ross MD Unavailable Karlos Islas PA-C Unavailable Encounter Details Date Type Department Care Team (Late st Contact Info) Description 07/25/2021 Transcribed Document [facility] Family Medicine [address] [place] [address] ProviderAle MD [address] [place] [address] Social History Tobacco Use [...] Do you speak a language other than Puerto Rican at [facility]? 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 Legal Sex Female 5:46 PM CDT Gender Identity Female 03/19/2022 10:49 AM LEVERS LACE MACHINE OPERATOR Sexual Orientation Not on file COVID-19 [...] Source : Stated Height Entry Format : Hughes Height, Feet : 5 ft(Converted to: 152 cm, 60 Inch) Height, Inches : 7 Inch(Converted to: 0 ft 7 Inch, 17.78 cm) Clinical Height : 170.18 cm Weight Source : Standing scale Weight Entry Format : Hughes Clinical Dosing Weight : 126.82 kg Weight, Pounds : 279 lb Body Surface Area (BSA) : 2.33 m2 Body Mass Index : 43.8 kg/m2 (>HHI) [place] Body Weight : 61 kg Archana Teague RN - 07/25/2021 12:16 EDT documented in this encounter Plan of Treatment Not on file documented as of this encounter Visit Diagnoses Not on filedocumented in this encounter Care Teams Embossing Calender Operator Relationship Specialty Start Date End Date Santosh Briones MD [address] [facility] [address] [place], [place] [id number] PCP - General General Internal Medicine 04/18/22 04/22/22 Santosh Briones MD [address] [facility] [address] [place], [place] [id number] PCP - General General Internal Medicine 04/23/22 Julius Cho MD [address] [place] [address] Referring Physician Internal Medicine 04/23/22 Lew Ross MD [address] [facility] [address] [place] [address] Cardiology 08/13/23 Karlos Islas PA-C [address] [place] [address] Cardiology 11/23/23 documented as of this encounter
--- OUTSIDE RECORDS SUMMARY | 2024-11-28 12:35 | XMS_ITS | Clinical Summary ---
Author Organization [employer] ([place], [place], [place], [place]) Address [address] [place] [address] Care Team Providers Care Disease Case Manager Name Role Phone Santosh Briones MD Primary Care Provider [phone] Julius Cho MD Unavailable Lew Ross MD Unavailable Karlos Islas PA-C Unavailable [phone] Allergies Active Allergy Reactions Criticality Noted [...] disease Brother Josue Jimenez Hypertension Brother Torandall Jiemnez Diabetes Father Ho Jimenez Heart attack Father [...] Do you speak a language other than Nepali at [facility]? No 08/17/2023 [...] Sex Assigned at Female 03/19/2022 10:49 AM SHOW GIRL Legal Sex Female 5:46 PM CDT Gender Identity Female 03/19/2022 10:49 AM SHOW GIRL Sexual Orientation Not on file Last Filed [...] Completed 01/28/2024 Medical Devices Implanted Type Area Back Stayer Device Identifier Shelf Expiration Date Model / Serial / Lot Base Tib 18mm [id number] - [id number] Implanted:Qty : 1 on 04/23/2022 by Massimo Blake DPM at [facility] IMPLANTS Left: Ankle ARIAS MED GRP:ARIAS MED TECH 03/13/[id number] / / [id number] Stem Mid Tib 16mm [id number] - [id number] Implanted:Qty : 2 on 04/23/2022 by Massimo Blake, DPM at [facility] IMPLANTS Left: Ankle ARIAS MED GRP:ARIAS MED TECH 03/10/2030 / / [id number] Stem Top Tib 16mm [id number] - [id number] Implanted:Qty : 1 on 04/23/2022 by Massimo Blake, DPM at [facility] IMPLANTS Left: Ankle ARIAS MED GRP:ARIAS MED TECH 05/20/[id number] / / [id number] Cement Bone Smplx Tobra 40gm 6197-9-001 - [id number] Implanted:Qty : 3 on 04/23/2022 by Massimo Blake, DPM at [facility] IMPLANTS Left: Ankle GIUSEPPE:GIUSEPPE ORTHOPAEDICS 08/02/2023 6197-9-001 / / [id number] Tray Tib Sz4 L [id number] - [id number] Implanted:Qty : 1 on 04/23/2022 by Massimo Blake, DPM at [facility] IMPLANTS Left: Ankle ARIAS MED GRP:ARIAS MED TECH 02/20/[id number] / / [id number] Dome Inbone Talar Sulcus Sz 3 - [id number] Implanted:Qty : 1 on 04/23/2022 by Massimo Blake, DPM at [facility] IMPLANTS Left: Ankle ARIAS MED GRP:ARIAS MED TECH 10/31/20283 / / [id number] Insrt Crosslnk Poly Sz3 [id number] - [id number] Implanted:Qty : 1 on 04/23/2022 by Massimo Blake, DPM at [facility] IMPLANTS Left: Ankle ARIAS MED GRP:ARIAS MED TECH 02/17/[id number] / / [id number] Stem Talar 10mm [id number] - [id number] Implanted:Qty : 1 on 04/23/2022 by Massimo Blake, DPM at [facility] IMPLANTS Left: Ankle ARIAS MED GRP:ARIAS MED TECH 02/16/[id number] / / [id number] Bone Putty Stimulan [facility] 620-005 - [id number] Implanted:Qty : 1 on 08/18/2023 by Massimo Blake DPM at [facility] IMPLANTS Left: Ankle BIOCOMPOSITES 03/03/2026 620-005 / / [id number] Insurance BLUE CROSS/BLUE SHIELD Advance Directives For more information, please contact: [phone] * Full Code (Latest Code Status on [...] 5:35 PM 08/18/2023 5:58 PM Care Teams Disease Case Manager Relationship Specialty Start Date End Date Santosh Briones MD [address] [facility] [place] [facility] [place] [address] PCP - General General Internal Medicine 04/23/22 Julius Cho MD [address] [place] [address] Referring Physician Internal Medicine 04/23/22 Lew Ross MD [address] [facility] [address] [place] [address] Cardiology 08/13/23 Kalros Islas PA-C [address] [facility] [address] [place] [address] Cardiology 11/23/23
--- OUTSIDE RECORDS SUMMARY | 2024-11-28 12:35 | XMS_ITS | Encounter Summary ---
Author Organization [employer] ([place], [place], [place], [place]) Address [address] [place] [address] Care Team Providers Care Wood Router Hand Name Role Phone Santosh Briones MD Primary Care Provider [phone] Santosh Briones MD Primary Care Provider [phone] Julius Cho MD Unavailable Lew Ross MD Unavailable Karlos Islas PA-C Unavailable [phone] Encounter Details Date Type Department Care Team (Late st Contact Info) Description 07/23/2021 Transcribed Document [facility] [address] [place] [address] ProviderAle MD [address] [place] [address] Social History Tobacco Use Types [...] Do you speak a language other than Macedonian at [facility]? 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 Legal Sex Female 5:46 PM CDT Gender Identity Female 03/19/2022 10:49 AM AUTOMOTIVE BUYER Sexual Orientation Not on file COVID-19 Exposure [...] Source : Stated Height Entry Format : Gray Height, Feet : 5 ft(Converted to: 152 cm, 60 Inch) Height, Inches : 7 Inch(Converted to: 0 ft 7 Inch, 17.78 cm) Clinical Height : 170.18 cm Weight Source : Standing scale Weight Entry Format : Gray Clinical Dosing Weight : 126.82 kg Weight, Pounds : 279 lb Body Surface Area (BSA) : 2.33 m2 Body Mass Index : 43.8 kg/m2 (>HHI) [place] Body Weight : 61 kg Lisa Prado RN - 07/23/2021 13:19 EDT Health Histories Smoking Status : Never (less than 100 in lifetime; none in last 30 days) Smokeless Tobacco Status : Never Implant/Device Type, Ict Support Technicians and Model : breast implants IVC filter [...] Lisa Prado RN - 07/23/2021 13:19 EDT [place] Suicide Severity Rating Scale (C-SSRS) CSSRS Past [...] 07/23/2021 13:19 EDT General Info Support Person/Patient Modeling Agency Manager : Yes Support Person/Pt Rep Name : Jose Ramon Lorenzana - Support Person/Pt Rep Contact Information : [phone] Want Family/Rep/Phys Notified of Admit : No Emergency Contact #1 : na Emergency Contact #1 Phone Number : na Emergency Contact #1 Relationship : na Emergency Contact #2 : na Emergency Contact #2 Phone Number : na Emergency Contact #2 Relationship : na Primary Language : Macedonian Preferred Communication Mode : Verbal Communication Barrier : None Neon Glass Blower Needed : No Lisa Prado RN - [...] Scale Risk Level : 0-24 Low Risk Gypsy Fall Interventions : Adequate lighting, Assistive devices [...] on filedocumented in this encounter Care Teams Wood Router Hand Relationship Specialty Start Date End Date Santosh Briones MD [address] [facility] [address] [place], [place] [address] PCP - General General Internal Medicine 04/18/22 04/22/22 Santosh Briones MD [address] [place], [place] [address] PCP - General General Internal Medicine 04/23/22 Julius Cho MD [address] [place] [address] Referring Physician Internal Medicine 04/23/22 Lew Ross MD [address] [facility] [address] [place] [address] Cardiology 08/13/23 Karlos Islas PA-C [address] [facility] [place] [address] Cardiology 11/23/23 documented as of this encounter
--- OUTSIDE RECORDS SUMMARY | 2024-11-28 12:35 | XMS_ITS | Encounter Summary ---
Author Organization [employer] ([place], [place], [place], [place]) Address [address] [place] [address] Care Team Providers Care Slip Seat Coverer Name Role Phone Santosh Briones MD Primary Care Provider [phone] Santosh Briones MD Primary Care Provider [phone] Julius Cho MD Unavailable Lew Ross MD Unavailable Karlos Islas PA-C Unavailable [phone] Encounter Details Date Type Department Care Team (Late st Contact Info) Description 07/25/2021 Transcribed Document [facility] [place] [address] [place] [address] ProviderAle MD [address] [place] [address] Social History Tobacco Use Types [...] Do you speak a language other than Israeli at [facility]? No 08/17/2023 Do you want help [...] Sex Assigned at Female 03/19/2022 10:49 AM MANIPULATIVE THERAPY SPECIALIST Legal Sex Female 5:46 PM CDT Gender Identity Female 03/19/2022 10:49 AM MANIPULATIVE THERAPY SPECIALIST Sexual Orientation Not on file COVID-19 [...] eating solid foods. General instructions ??? Take cjqc-exg-qqttvad and prescription medicines only as told by [...] provider. Document Revised: 08/17/2020 Document Reviewed: 03/15/2020 [employer] Patient Education ? 2020 [employer] Inc. Procedures Endovenous Ablation, Care After This [...] and water are not available, use hand coach mechanic. ? Change your dressing as told [...] health care provider. General instructions ??? Take tdzy-snz-csrmfny and prescription medicines only as told by [...] provider. Document Revised: 12/29/2018 Document Reviewed: 12/29/2018 [employer] Patient Education ? 2020 [employer]. documented in this encounter Plan of Treatment Not on file documented as of this encounter Visit Diagnoses Not on filedocumented in this encounter Care Teams Slip Seat Coverer Relationship Specialty Start Date End Date Santosh Briones MD [address] [facility] [place] [address] PCP - General General Internal Medicine 04/18/22 04/22/22 Santosh Briones MD [address] [facility] [place] [address] PCP - General General Internal Medicine 04/23/22 Julius Cho MD [address] [place] [address] Referring Physician Internal Medicine 04/23/22 Lew Ross MD [address] [facility] [address] [place] [address] Cardiology 08/13/23 Karlos Islas PA-C [address] [place] [address] Cardiology 11/23/23 documented as of this encounter
--- OUTSIDE RECORDS SUMMARY | 2024-11-28 12:35 | XMS_ITS | Encounter Summary ---
Author Organization [employer] ([place], [place], [place], [place]) Address [address] [place] [address] Care Team Providers Care Industrial Education Instructor Name Role Phone Santosh Briones MD Primary Care Provider [phone] Santosh Briones MD Primary Care Provider [phone] Julius Cho MD Unavailable Lew Ross MD Unavailable Karlos Islas PA-C Unavailable [phone] Encounter Details Date Type Department Care Team (Late st Contact Info) Description 07/24/2021 Transcribed Document [facility] [place] [address] [place] [address] ProviderAle MD [address] [place] [address] Social History Tobacco Use Types [...] Do you speak a language other than [facility]? No 08/17/2023 Do [...] Sex Assigned at Female 03/19/2022 10:49 AM CLINIC CLERK Legal Sex Female 5:46 PM CDT Gender Identity Female 03/19/2022 10:49 AM CLINIC CLERK Sexual Orientation Not on file COVID-19 Exposure [...] Source : Stated Height Entry Format : Bracken Height, Feet : 5 ft(Converted to: 152 cm, 60 Inch) Height, Inches : 7 Inch(Converted to: 0 ft 7 Inch, 17.78 cm) Clinical Height : 170.18 cm Weight Source : Standing scale Weight Entry Format : Bracken Clinical Dosing Weight : 126.82 kg Weight, Pounds : 279 lb Body Surface Area (BSA) : 2.33 m2 Body Mass Index : 43.8 kg/m2 (>HHI) Switchback Body Weight : [address] RN - 07/24/2021 12:43 EDT Health Histories Smoking Status : Never (less than 100 in lifetime; none in last 30 days) Smokeless Tobacco Status : Never Implant/Device Type, Technical Laboratory Asst and Model : breast implants IVC filter [...] OUSMANE LANE RN - 07/24/2021 12:43 EDT [place] Suicide Severity Rating Scale (C-SSRS) CSSRS Past [...] 07/24/2021 12:43 EDT General Info Support Person/Patient Museum Exhibit Designer : Yes Support Person/Pt Rep Name : Jose Ramon Lorenzana - Support Person/Pt Rep Contact Information : [phone] Want Family/Rep/Phys Notified of Admit : No Emergency Contact #1 : Gopal Jimenez Emergency Contact #1 Emergency Contact #1 Relationship : Brother Emergency Contact #2 : . Emergency Contact #2 Phone Number : . Emergency Contact #2 Relationship : . Primary Language : Japanese Preferred Communication Mode : Verbal Communication Barrier : None Power Plant Inspector Needed : No OUSMANE LANE RN - [...] Scale Risk Level : 0-24 Low Risk [place] Fall Interventions : Adequate lighting, Assistive devices [...] on filedocumented in this encounter Care Teams Industrial Education Instructor Relationship Specialty Start Date End Date Santosh Briones MD [address] [place] [address] PCP - General General Internal Medicine 04/18/22 04/22/22 Santosh Briones MD [address] [place] [address] PCP - General General Internal Medicine 04/23/22 Julius Cho MD [address] [place] [address] Referring Physician Internal Medicine 04/23/22 Lew Ross MD [address] [facility] [address] [place] [address] Cardiology 08/13/23 Karlos Islas PA-C [address] [place] [address] Cardiology 11/23/23 documented as of this encounter
--- OUTSIDE RECORDS SUMMARY | 2024-11-28 12:35 | XMS_ITS | Encounter Summary ---
Author Organization [employer] ([place], [place], [place], [place]) Address [address] [place] [address] Care Team Providers Care Engineering Program Manager Name Role Phone Santosh Briones MD Primary Care Provider [phone] Santosh Briones MD Primary Care Provider [phone] Julius Cho MD Unavailable Lew Ross MD Unavailable Karlos Islas PA-C Unavailable [phone] Encounter Details Date Type Department Care Team (Late st Contact Info) Description 07/25/2021 Transcribed Document [facility] [place] Family Medicine [address] [place] [address] ProviderAle MD [address] [place] [address] Social History Tobacco Use Types [...] Do you speak a language other than Citizen Of [place] at [facility]? No 08/17/2023 Do you [...] Sex Assigned at Female 03/19/2022 10:49 AM BRONC BREAKER Legal Sex Female 5:46 PM CDT Gender Identity Female 03/19/2022 10:49 AM BRONC BREAKER Sexual Orientation Not on file COVID-19 Exposure [...] - 07/25/2021 15:59 EDT Electronically signed by [facility] Conversion Children'S Program Coordinator Cerner at 08/22/2022 4:06 PM CDT documented in this encounter Plan of Treatment Not on file documented as of this encounter Visit Diagnoses Not on filedocumented in this encounter Care Teams Engineering Program Manager Relationship Specialty Start Date End Date Santosh Briones MD [address] [facility] [address] [place], [place] [id number] PCP - General General Internal Medicine 04/18/22 04/22/22 Santosh Briones MD [address] [facility] [address] [place], [place] [id number] PCP - General General Internal Medicine 04/23/22 Julius Cho MD [address] [place] [address] Referring Physician Internal Medicine 04/23/22 Lew Ross MD [address] [facility] [address] [place] [address] Cardiology 08/13/23 Karlos Islas PA-C [address] [place] [address] Cardiology 11/23/23 documented as of this encounter
--- OUTSIDE RECORDS SUMMARY | 2024-11-28 12:35 | XMS_ITS | Encounter Summary ---
Author Organization [employer] ([place], [place], [place], [place]) Address [address] [place] [address] Care Team Providers Care Contract Loader Name Role Phone Santosh Santos MD Primary Care Provider [phone] Santosh Santos MD Primary Care Provider [phone] Julius Cho MD Unavailable Nader Wu MD Unavailable Karlos Islas PA-C Unavailable [phone] Encounter Details Date Type Department Care Team (Late st Contact Info) Description 07/24/2021 Transcribed Document [facility] [place] [address] [place] [address] ProviderAle MD [address] [place] [address] Social History Tobacco Use Types [...] Do you speak a language other than Rwandan at [facility]? No 08/17/2023 Do you want help [...] Sex Assigned at Female 03/19/2022 10:49 AM RAILROAD SIGNAL OPERATOR Legal Sex Female 5:46 PM CDT Gender Identity Female 03/19/2022 10:49 AM RAILROAD SIGNAL OPERATOR Sexual Orientation Not on file COVID-19 Exposure Response Date Recorded In the last 10 days, have yo u been in contact with someone who was confirmed or suspected to have Coronavirus/COVID-19? No / Unsure 07/17/2022 7:53 AM EDT documented as of this encounter Miscellaneous Notes * Cerner Conversion Note - Historical Provider, - 07/24/2021 4:[address] [facility] [address] [place], [place] [id number] JANIS FIGUEREDO :1965 Visit Time:07/24/2021 Your Visit [...] your health care provider and follow the software analyst's instructions that come with the stockings. ??? [...] provider. Document Revised: 08/22/2020 Document Reviewed: 08/22/2020 [employer] Patient Education ?? 2020 [employer]. Wound Infection A wound infection happens when [...] at home: Medicines ??? Take or apply llhp-ylp-ykgdxkk and prescription medicines only as told by [...] cannot use soap and water, use hand box brander. ? Change your bandage as told by [...] provider. Document Revised: 11/30/2018 Document Reviewed: 11/30/2018 [employer] Patient Education ?? 2020 [employer] Moderate Conscious Sedation, Adult, Care After [...] eating solid foods. General instructions ??? Take joub-zkj-aiznhvo and prescription medicines only as told by [...] provider. Document Revised: 08/17/2020 Document Reviewed: 03/15/2020 [employer] Patient Education ?? 2020 [employer] Emergency Awareness and Preventative Care STROKE [...] Assistance with quitting is available by contacting 1-641-OHTPNOW. This is a free resource providing counseling, [...] was given the opportunity to ask questions. Patient/Supervisor Composing Room Name: Patient/Supervisor Composing Room Signature: Relationship to Patient: Clinician/Hospital Supervisor Composing Room Signature: Date: Electronically signed by Everardo, [facility] Conversion Commodities Requirements Analyst Cerner at 08/22/2022 3:53 PM CDT documented in this encounter Plan of Treatment Not on file documented as of this encounter Visit Diagnoses Not on filedocumented in this encounter Care Teams Contract Loader Relationship Specialty Start Date End Date Santosh Santos MD [address] [place], [place] [id number] PCP - General General Internal Medicine 04/18/22 04/22/22 Santosh Santos MD [address] [facility] [address] [place], [place] [id number] PCP - General General Internal Medicine 04/23/22 Julius Cho MD [address] [place] [address] Referring Physician Internal Medicine 04/23/22 Nader Wu MD [address] [facility] [address] [place] [address] Cardiology 08/13/23 Karlos Islas PA-C [address] [facility] [address] [place] [address] Cardiology 11/23/23 documented as of this encounter
--- OUTSIDE RECORDS SUMMARY | 2024-11-28 12:35 | XMS_ITS | Referral Summary ---
Author Organization [employer] ([place], [place], [place], [place]) Address [address] [place] [address] Care Team Providers Care Director Operating Room Name Role Phone Santosh Briones MD Primary Care Provider [phone] Julius Cho MD Unavailable Lew Ross MD Unavailable Karlos Islas PA-C Unavailable [phone] Allergies Active Allergy Reactions Criticality Noted [...] Do you speak a language other than Micronesian at [facility]? No 08/17/2023 Do you want [...] Sex Assigned at Female 03/19/2022 10:49 AM HEAVY MACHINERY ASSEMBLER Legal Sex Female 5:46 PM CDT Gender Identity Female 03/19/2022 10:49 AM HEAVY MACHINERY ASSEMBLER Sexual Orientation Not on file Last Filed [...] on file Medical Devices Implanted Type Area Panel Machine Operator Device Identifier Shelf Expiration Date Model / Serial / Lot Base Tib 18mm [id number] - [id number] Implanted:Qty : 1 on 04/23/2022 by Massimo Blake, DPM at [facility] IMPLANTS Left: Ankle ARIAS MED GRP:ARIAS MED TECH 03/13/[id number] / / [id number] Stem Mid Tib 16mm [id number] - [id number] Implanted:Qty : 2 on 04/23/2022 by Massimo Blake, DPM at [facility] IMPLANTS Left: Ankle ARIAS MED GRP:ARIAS MED TECH 03/10/[id number] / / [id number] Stem Top Tib 16mm [id number] - [id number] Implanted:Qty : 1 on 04/23/2022 by Massimo Blake, DPM at [facility] IMPLANTS Left: Ankle ARIAS MED GRP:ARIAS MED TECH 05/20/[id number] / / [id number] Cement Bone Smplx Tobra 40gm 6197-9-001 - [id number] Implanted:Qty : 3 on 04/23/2022 by Massimo Blake, DPM at [facility] IMPLANTS Left: Ankle GIUSEPPE:GIUSEPPE ORTHOPAEDICS 08/02/2023 6197-9-001 / / [id number] Tray Tib Sz4 L [id number] - [id number] Implanted:Qty : 1 on 04/23/2022 by Massimo Blake, DPM at [facility] IMPLANTS Left: Ankle ARIAS MED GRP:ARIAS MED TECH 02/20/[id number] / / [id number] Dome Inbone Talar Sulcus Sz 3 - [id number] Implanted:Qty : 1 on 04/23/2022 by Massimo Blake, DPM at [facility] IMPLANTS Left: Ankle ARIAS MED GRP:ARIAS MED TECH 10/31/2028 / / [id number] Insrt Crosslnk Poly Sz3 [id number] - [id number] Implanted:Qty : 1 on 04/23/2022 by Massimo Blake DPM at [facility] IMPLANTS Left: Ankle ARIAS MED GRP:ARIAS MED TECH 02/17/2030 [id number] / / [id number] Stem Talar 10mm [id number] - [id number] Implanted:Qty : 1 on 04/23/2022 by Massimo Blake DPM at [facility] IMPLANTS Left: Ankle ARIAS MED GRP:ARIAS MED TECH 02/16/[id number] / / [id number] Bone Putty Stimulan [facility] 620-005 - [id number] Implanted:Qty : 1 on 08/18/2023 by Massimo Blake DPM at [facility] IMPLANTS Left: Ankle BIOCOMPOSITES 03/03/2026 620-005 / / [id number] Insurance BLUE CROSS/BLUE SHIELD Advance Directives For more information, please contact: [phone] * Full Code (Latest Code Status on [...] 5:35 PM 08/18/2023 5:58 PM Care Teams Director Operating Room Relationship Specialty Start Date End Date Santosh Briones MD [address] [place], [place] [id number] PCP - General General Internal Medicine 04/23/22 Julius Cho MD [address] [place] [address] Referring Physician Internal Medicine 04/23/22 Lew Ross MD [address] [facility] [address] [place] [address] Cardiology 08/13/23 Karlos Islas PA-C [address] [place] [address] Cardiology 11/23/23
--- OUTSIDE RECORDS SUMMARY | 2024-11-28 12:35 | XMS_ITS | Encounter Summary ---
Author Organization [employer] ([place], [place], [place], [place]) Address [address] [place] [address] Care Team Providers Care Mogul Operator Name Role Phone Santosh Briones MD Primary Care Provider [phone] Santosh Briones MD Primary Care Provider [phone] Julius Cho MD Unavailable Lew Ross MD Unavailable Karlos Islas PA-C Unavailable [phone] Encounter Details Date Type Department Care Team (Late st Contact Info) Description 07/24/2021 Transcribed Document [facility] [place] [address] [place] [address] ProviderAle MD [address] [place] [address] Social History Tobacco Use Types [...] Do you speak a language other than Palestinian at [facility]? No 08/17/2023 Do you [...] Sex Assigned at Female 03/19/2022 10:49 AM REJOINER Legal Sex Female 5:46 PM CDT Gender Identity Female 03/19/2022 10:49 AM REJOINER Sexual Orientation Not on file COVID-19 Exposure [...] your health care provider and follow the exceptional needs teacher's instructions that come with the stockings. ??? [...] provider. Document Revised: 08/22/2020 Document Reviewed: 08/22/2020 [email or web address] Patient Education ? 2020 [employer] Infectious Disease Wound Infection A wound [...] at home: Medicines ??? Take or apply awfp-jbo-jvbnwhr and prescription medicines only as told by [...] cannot use soap and water, use hand stab setter and driller. ? Change your bandage as told by [...] provider. Document Revised: 11/30/2018 Document Reviewed: 11/30/2018 [email or web address] Patient Education ? 2020 [employer] Pharmacology Moderate Conscious Sedation, Adult, Care [...] eating solid foods. General instructions ??? Take mkwp-qpw-eariafp and prescription medicines only as told by [...] Reviewed: 03/15/2020 [employer] Patient Education ? 2020 [employer] documented in this encounter Plan of Treatment Not on file documented as of this encounter Visit Diagnoses Not on filedocumented in this encounter Care Teams Mogul Operator Relationship Specialty Start Date End Date Santosh Briones MD [address] [facility] [address] [place], [place] [id number] PCP - General General Internal Medicine 04/18/22 04/22/22 Santosh Briones MD [address] [facility] [place] [address] PCP - General General Internal Medicine 04/23/22 Julius Cho MD [address] [place] [address] Referring Physician Internal Medicine 04/23/22 Lew Ross MD [address] [facility] [address] [place] [address] Cardiology 08/13/23 Karlos Islas PA-C [address] [place] [address] Cardiology 11/23/23 documented as of this encounter
--- OUTSIDE RECORDS SUMMARY | 2024-11-28 12:35 | XMS_ITS | Encounter Summary ---
Author Organization [employer] ([place], [place], [place], [place]) Address [address] [place] [address] Care Team Providers Care Mop Handle Assembler Name Role Phone Santosh Briones MD Primary Care Provider [phone] Santosh Briones MD Primary Care Provider [phone] Julius Cho MD Unavailable Lew Ross MD Unavailable Karlos Islas PA-C Unavailable [phone] Encounter Details Date Type Department Care Team (Late st Contact Info) Description 07/24/2021 Transcribed Document [facility] [place] [address] [place] [address] ProviderAle MD [address] [place] [address] Social History Tobacco Use Types [...] Do you speak a language other than Nicaraguan at [facility]? No 08/17/2023 Do you [...] Sex Assigned at Female 03/19/2022 10:49 AM SURFACE GRINDER TENDER Legal Sex Female 5:46 PM CDT Gender Identity Female 03/19/2022 10:49 AM SURFACE GRINDER TENDER Sexual Orientation Not on file COVID-19 Exposure [...] - 07/24/2021 13:18 EDT Electronically signed by [facility] Conversion Coordinate Measuring Machine Technician Cerner at 08/22/2022 3:57 PM CDT documented in this encounter Plan of Treatment Not on file documented as of this encounter Visit Diagnoses Not on filedocumented in this encounter Care Teams Mop Handle Assembler Relationship Specialty Start Date End Date Santosh Briones MD [address] [facility] [address] [place], [place] [address] PCP - General General Internal Medicine 04/18/22 04/22/22 Santosh Briones MD [address] [facility] [address] [place], [place] [address] PCP - General General Internal Medicine 04/23/22 Julius Cho MD [address] [place] [address] Referring Physician Internal Medicine 04/23/22 Lew Ross MD [address] [facility] [address] [place] [address] Cardiology 08/13/23 Karlos Islas PA-C [address] [place] [address] Cardiology 11/23/23 documented as of this encounter
--- OUTSIDE RECORDS SUMMARY | 2024-11-28 12:35 | XMS_ITS | Encounter Summary ---
Author Organization [employer] ([place], [place], [place], [place]) Address [address] [address] Care Team Providers Care Print Controller Name Role Phone Santosh Briones MD Primary Care Provider [phone] Santosh Briones MD Primary Care Provider [phone] Julius Cho MD Unavailable Lew Ross MD Unavailable Karlos Islas PA-C Unavailable [phone] Encounter Details Date Type Department Care Team (Late st Contact Info) Description 07/23/2021 Transcribed Document [facility] [place] [address] [place] [address] ProviderAle MD [address] [place] [address] Social History Tobacco Use Types [...] Do you speak a language other than Libyan at [facility]? No 08/17/2023 Do you want help [...] Sex Assigned at Female 03/19/2022 10:49 AM OUTSIDE MACHINIST SUPERVISOR Legal Sex Female 5:46 PM CDT Gender Identity Female 03/19/2022 10:49 AM OUTSIDE MACHINIST SUPERVISOR Sexual Orientation Not on file COVID-19 Exposure [...] Source : Stated Height Entry Format : Pima Height, Feet : 5 ft(Converted to: 152 cm, 60 Inch) Height, Inches : 7 Inch(Converted to: 0 ft 7 Inch, 17.78 cm) Clinical Height : 170.18 cm Weight Source : Standing scale Weight Entry Format : Pima Clinical Dosing Weight : 126.82 kg Weight, Pounds : 279 lb Body Surface Area (BSA) : 2.33 m2 Body Mass Index : 43.8 kg/m2 (>HHI) Deep Water Body Weight : 61 kg Lisa Prado RN - 07/23/2021 12:48 EDT Electronically signed by Everardo [facility] Conversion Boiler Installer Cerner at 08/22/2022 4:02 PM CDT documented in this encounter Plan of Treatment Not on file documented as of this encounter Visit Diagnoses Not on filedocumented in this encounter Care Teams Print Controller Relationship Specialty Start Date End Date Santosh Briones MD [address] [facility] [address] [place], [place] [address] PCP - General General Internal Medicine 04/18/22 04/22/22 Santosh Briones MD [address] [facility] [address] [place], [place] [address] PCP - General General Internal Medicine 04/23/22 Julius Cho MD [address] [place] [address] Referring Physician Internal Medicine 04/23/22 Lew Ross MD [address] [facility] [address] [place] [address] Cardiology 08/13/23 Karlos Islas PA-C [address] [place] [address] Cardiology 11/23/23 documented as of this encounter
--- OUTSIDE RECORDS SUMMARY | 2024-11-28 12:35 | XMS_ITS | Encounter Summary ---
Author Organization [employer] ([place], [place], [place], [place]) Address [address] [address] Care Team Providers Care Entry Level Recruiter Name Role Phone Santosh Briones MD Primary Care Provider [phone] Santosh Briones MD Primary Care Provider [phone] Julius Cho MD Unavailable Lew Ross MD Unavailable Karlos Islas PA-C Unavailable [phone] Encounter Details Date Type Department Care Team (Late st Contact Info) Description 08/02/2021 Transcribed Document [facility] [place] Family Medicine [address] [place] [address] ProviderAle MD [address] [place] [address] Social History Tobacco Use Types [...] Do you speak a language other than Ecuadorean at [facility]? No 08/17/2023 Do you want [...] Sex Assigned at Female 03/19/2022 10:49 AM SALES AND MANAGEMENT TRAINEE Legal Sex Female 5:46 PM CDT Gender Identity Female 03/19/2022 10:49 AM SALES AND MANAGEMENT TRAINEE Sexual Orientation Not on file COVID-19 Exposure [...] Physical performed by Dr Hackett Lin on [id number] has been reviewed, patient was examined, and no change has occurred since the History and Physical was completed. OR UPDATE: The History and Physical performed by on has been reviewed and patient examined. The only significant change(s) in the patient's history or condition since the History and Physical was completed are indicated below: Significant Changes: Electronically signed by Interface, [facility] Conversion Hydraulic Repairer Cerner at 08/22/2022 3:57 PM CDT documented in this encounter Plan of Treatment Not on file documented as of this encounter Visit Diagnoses Not on filedocumented in this encounter Care Teams Entry Level Recruiter Relationship Specialty Start Date End Date Santosh Briones MD [address] [facility] [place] [address] PCP - General General Internal Medicine 04/18/22 04/22/22 Santosh Briones MD 200 [facility] [place] [address] PCP - General General Internal Medicine 04/23/22 Julius Cho MD [address] [place] [address] Referring Physician Internal Medicine 04/23/22 Lew Ross MD [address] [facility] [address] [place] [address] Cardiology 08/13/23 Karlos Islas PA-C [address] [place] [address], [facility] [address] [place] [address] Cardiology 11/23/23 documented as of this encounter
--- NOTE | 2024-11-28 12:36 | XR_ITS ---
FINAL REPORT CLINICAL HISTORY: left hip pain FINDINGS: AP and frog leg views of the left hip were obtained. There is no acute fracture or dislocation. 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 Soft tissues are unremarkable. IMPRESSION: Degenerative findings bilaterally with no acute osseous abnormality. Reviewed, Interpreted and Dictated by Smiley Bower MD Transcribed by YAMILEX Christopher Authenticated and [facility]
--- OUTSIDE RECORDS SUMMARY | 2024-11-28 12:36 | XMS_ITS | Encounter Summary ---
Author Organization [employer] ([place], [place], [place], [place]) Address [address] [place] [address] Care Team Providers Care Dental Biller Name Role Phone Santosh Briones MD Primary Care Provider [phone] Santosh Briones MD Primary Care Provider [phone] Julius Cho MD Unavailable Lew Ross MD Unavailable Karlos Islas PA-C Unavailable [phone] Encounter Details Date Type Department Care Team (Late st Contact Info) Description 12/19/2020 Transcribed Document [facility] [place] Family Medicine [facility] [place] [address] ProviderAle MD [address] [place] [address] Social History Tobacco Use Types Packs/Day Years Used Date Smoking Tobacco: Never Assessed Comments Unknown Sex and Gender Information Value Date Recorded Sex Assigned at Female 03/19/2022 10:49 AM COIN MACHINE SUPERVISOR Legal Sex Female 5:46 PM CDT Gender Identity Female 03/19/2022 10:49 AM COIN MACHINE SUPERVISOR Sexual Orientation Not on file documented as of this encounter Miscellaneous Notes * Cerner Conversion Note - Ale ProviderMD - 12/19/2020 7:30 AM CDT [facility] Main OR Preop Summary Primary Physician: MEE TUCKER, DPM-POD Finalized Date/Time: 12/19/20 07:52:13 Pt. Name: JANIS FIGUEREDO BILLIE Sands/Sex: 1965 Female Med Rec #: [id number] Physician: MEE TUCKER, DPM-POD Financial #: [id number] Pt. Type: O Room/Bed: / Admit/Disch: 12/19/20 06:32:00 - Institution: [facility] PreOp Case Times Entry 1 In Preop 12/19/20 05:50:00 Ready for Holding n/a Room Patient Ready for 12/19/20 07:48:00 Surgery Patient Out of Preop 12/19/20 07:52:00 Patient Out of n/a Holding Room Last Modified By: Pérez Gil Rn 12/19/20 07:52:11 [facility] PreOp Case Times Audit 12/19/20 07:52:11 Casket Coverer: [id number] Modifier: [id number] <+> 1 Patient Out of Preop <+> 1 Patient Ready for Surgery Finalized By: Pérez Gil Rn Document Signatures Signed By: Pérez Gil Rn 12/19/20 07:52 Electronically signed by Everardo [facility] Conversion Bread Racker Cerner at 08/22/2022 3:49 PM CDT documented in this encounter Plan of Treatment Not on file documented as of this encounter Visit Diagnoses Not on filedocumented in this encounter Care Teams Dental Biller Relationship Specialty Start Date End Date Santosh Briones MD [address] [place] [address] [place] [address] PCP - General General Internal Medicine 04/18/22 04/22/22 Santosh Briones MD [address] [place], [place] [id number] PCP - General General Internal Medicine 04/23/22 Julius Cho MD [address] [place] [address] Referring Physician Internal Medicine 04/23/22 Lew Ross MD [address] [place] [address] [address] [place] [address] Cardiology 08/13/23 Karlos Islas PA-C [address], [facility] [address] [place] [address] Cardiology 11/23/23 documented as of this encounter
--- OUTSIDE RECORDS SUMMARY | 2024-11-28 12:36 | XMS_ITS | Encounter Summary ---
Author Organization [employer] ([place], [place], [place], [place]) Address [address] [place] [address] Care Team Providers Care Operators Teacher Name Role Phone Santosh Briones MD Primary Care Provider Santosh Briones MD Primary Care Provider [phone] Julius Cho MD Unavailable Lew Ross MD Unavailable Karlos Islas PA-C Unavailable Encounter Details Date Type Department Care Team (Late st Contact Info) Description 12/19/2020 Transcribed Document [facility] [place] [facility] [place] [address] Ale Johnson MD [address] [place] [address] Social History Tobacco Use Types Packs/Day Years Used Date Smoking Tobacco: Never Assessed Comments Unknown Sex and Gender Information Value Date Recorded Sex Assigned at Female 03/19/2022 10:49 AM ART GILDER Legal Sex Female 5:46 PM CDT Gender Identity Female 03/19/2022 10:49 AM ART GILDER Sexual Orientation Not on file documented as of this encounter Miscellaneous Notes * Cerner Conversion Note - Ale ProviderMD - 12/19/2020 8:35 AM CDT [facility] Main OR PACU Summary Primary Physician: MEE TUCKER, DPM-POD Finalized Date/Time: 12/21/20 20:53:34 Pt. Name: JANIS FIGUEREDO BILLIE Sands/Sex: 1965 Female Med Rec #: [id number] Physician: MEE TUCKER, DPM-POD Financial #: [id number] Pt. Type: O Room/Bed: Admit/Disch: 12/19/20 06:32:00 - 12/19/20 12:11:00 Institution: [facility] Main OR PACU I Case Times Entry 1 In PACU I 12/19/20 10:25:00 Ready for PACU 12/19/20 11:05:00 Discharge Discharge from PACU 12/19/20 11:08:00 I Last Modified By: Sunshine Rowland RN-PATIENT CARE BEDSIDE NON-EXEMPT 12/19/20 11:55:39 [facility] Main OR PACU Acuity Entry 1 Start Time 12/19/20 11:05:00 Stop Time 12/19/20 11:08:00 Acuity Level [facility] PACU Acuity I Last Modified By: Letitia Dugan Nurse Industrial Hygenist 12/21/20 20:53:32 [facility] Main OR PACU Acuity Audit 12/21/20 20:53:32 Rn Imaging: [id number] Modifier: [id number] <*> Start Time 12/19/20 10:25:00 Finalized By: Letitia Dugan Nurse Manager Requirements Signatures Signed By: Sunshine Rowland RN-PATIENT CARE BEDSIDE NON-EXEMPT 12/19/20 11:55 Letitia Dugan Nurse Industrial Hygenist 12/21/20 20:53 Unfinalized History Date/Time Username Reason for Unfinalizing Freetext Reason for Unfinalizing 12/21/20 20:53 [id number] Correct Billing Electronically signed by [facility] Conversion Vice President Global Advertising Sales Cerner at 08/22/2022 3:52 PM CDT documented in this encounter Plan of Treatment Not on file documented as of this encounter Visit Diagnoses Not on filedocumented in this encounter Care Teams Operators Teacher Relationship Specialty Start Date End Date Santosh Briones MD [address] [facility] [place] [address] PCP - General General Internal Medicine 04/18/22 04/22/22 Santosh Briones MD [address] [place] [address] [place] [address] PCP - General General Internal Medicine 04/23/22 Julius Cho MD [address] [place] [address] Referring Physician Internal Medicine 04/23/22 Lew Ross MD [address] [facility] [address] [place] [address] Cardiology 08/13/23 Karlos Islas PA-C [address] [facility] [address] [place] [address] Cardiology 11/23/23 documented as of this encounter
--- OUTSIDE RECORDS SUMMARY | 2024-11-28 12:36 | XMS_ITS | Encounter Summary ---
Author Organization [employer] ([place], [place], [place], [place]) Address [address] [place] [address] Care Team Providers Care Ell Tutor Name Role Phone Santosh Briones MD Primary Care Provider [phone] Santosh Briones MD Primary Care Provider [phone] Julius Cho MD Unavailable Lew Ross MD Unavailable Karlos Islas PA-C Unavailable [phone] Encounter Details Date Type Department Care Team (Late st Contact Info) Description 12/19/2020 Transcribed Document [facility] [place] [facility] [place] [address] Ale Johnson MD [address] [place] [address] Social History Tobacco Use Types Packs/Day Years Used Date Smoking Tobacco: Never Assessed Comments Unknown Sex and Gender Information Value Date Recorded Sex Assigned at Female 03/19/2022 10:49 AM RN COMPLIANCE Legal Sex Female 5:46 PM CDT Gender Identity Female 03/19/2022 10:49 AM RN COMPLIANCE Sexual Orientation Not on file documented as [...] activities are safe for you. ??? Take cnjx-gkd-mheqpdb and prescription medicines only as told by [...] provider. Document Revised: 04/23/2018 Document Reviewed: 12/04/2017 dotHIV Patient Education ? 2020 [employer]. documented in this encounter Plan of Treatment Not on file documented as of this encounter Visit Diagnoses Not on filedocumented in this encounter Care Teams Ell Tutor Relationship Specialty Start Date End Date Santosh Briones MD [address] [facility] [place] [address] PCP - General General Internal Medicine 04/18/22 04/22/22 Santosh Briones MD [address] [facility] [place] [address] PCP - General General Internal Medicine 04/23/22 Julius Cho MD [address] [place] [address] Referring Physician Internal Medicine 04/23/22 Lew Ross MD [address] [facility] [address] [place] [address] Cardiology 08/13/23 Karlos Islas PA-C [address] [place] [address] [address] [place] [address] Cardiology 11/23/23 documented as of this encounter
--- OUTSIDE RECORDS SUMMARY | 2024-11-28 12:36 | XMS_ITS | Encounter Summary ---
Author Organization [employer] ([place], [place], [place], [place]) Address [address] [place] [address] Care Team Providers Care Medical Technologist Prn Name Role Phone Santosh Briones MD Primary Care Provider [phone] Santosh Briones MD Primary Care Provider [phone] Julius Cho MD Unavailable Lew Ross MD Unavailable Karlos Islas PA-C Unavailable [phone] Encounter Details Date Type Department Care Team (Late st Contact Info) Description 07/23/2021 Transcribed Document [facility] [place] Family Medicine [address] [place] [address] ProviderAle MD [address] [place] [address] Social History Tobacco Use Types [...] Do you speak a language other than Venezuelan at [facility]? 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 Take or apply lqeh-jlb-wvdibys and prescription medicines only as told by [...] cannot use soap and water, use hand lye machine operator. ? Change your bandage as told [...] provider. Document Revised: 11/30/2018 Document Reviewed: 11/30/2018 ElseHandpay Patient Education ? 2020 [employer] Pharmacology Moderate Conscious Sedation, Adult, Care [...] eating solid foods. General instructions ??? Take jgvh-pcg-hajcktn and prescription medicines only as told by [...] provider. Document Revised: 08/17/2020 Document Reviewed: 03/15/2020 [employer]ESEEKER Patient Education ? 2020 [employer]. documented in this encounter Plan of Treatment Not on file documented as of this encounter Visit Diagnoses Not on filedocumented in this encounter Care Teams Medical Technologist Prn Relationship Specialty Start Date End Date Santosh Briones MD [address] [facility] [address] [place], [place] [id number] PCP - General General Internal Medicine 04/18/22 04/22/22 Santosh Briones MD [address] [facility] [place] [address] PCP - General General Internal Medicine 04/23/22 Julius Cho MD [address] [place] [address] Referring Physician Internal Medicine 04/23/22 Lew Ross MD [address] [facility] [address] [place] [address] Cardiology 08/13/23 Karlos Islas PA-C [address] [facility] [address] [place] [address] Cardiology 11/23/23 documented as of this encounter
--- OUTSIDE RECORDS SUMMARY | 2024-11-28 12:36 | XMS_ITS | Clinical Summary ---
Author Organization [facility] Address [address] [place] [address] Care Team Providers Care Bag Repairer Name Role Phone Santosh Briones MD Primary Care Provider [phone] Social History Tobacco Use Types Packs/Day Years [...] Payer (Ef fective 2024-Present) Name:Janis Lorenzana Member ID:[id number] Relation to Subscriber:Self Name:Christie Lorenzanalissette Suero Subscriber ID:[id number] Payer ID:[id number] Group ID:Not on file Type:Not on file Address: [id number] MEDICARE ADVANTAGE HMO NON PAR Care Teams Bag Repairer Relationship Specialty Start Date End Date Santosh Briones MD PCP - General Internal Medicine 02/27/22
--- OUTSIDE RECORDS SUMMARY | 2024-11-28 12:36 | XMS_ITS | Encounter Summary ---
Author Organization [employer] ([place], [place], [place], [place]) Address [address] [place] [address] Care Team Providers Care Hand Pattern Marker Name Role Phone Santosh Briones MD Primary Care Provider [phone] Santosh Briones MD Primary Care Provider [phone] Julius Cho MD Unavailable Lew Ross MD Unavailable Karlos Islas PA-C Unavailable [phone] Encounter Details Date Type Department Care Team (Late st Contact Info) Description 07/22/2021 Transcribed Document [facility] [place] [address] [place] [address] ProviderAle MD [address] [place] [address] Social History Tobacco Use Types [...] Do you speak a language other than Chadian at [facility]? No 08/17/2023 Do you want [...] Sex Assigned at Female 03/19/2022 10:49 AM JBOSS DEVELOPER Legal Sex Female 5:46 PM CDT Gender Identity Female 03/19/2022 10:49 AM JBOSS DEVELOPER Sexual Orientation Not on file COVID-19 Exposure [...] Ministry Provided to : Patient, Family/Significant other Church Preference : [employer] ZAKI TORO - 07/22/2021 14:56 EDT Spiritual Assessment Spiritual Assessment Comment/Summary Points : Patient declined asking for advance directive info. Provided spiritual support. Spirital Assessment Comment/Summary Report : SPIRITUAL ASSESSMENT COMMENT/SUMMARY No qualifying data available. ZAKI TORO P - 07/22/2021 14:56 EDT Interventions Advance Directive Information Provided : No Spiritual and Church : Spiritual/Church support provided ZAKI TORO - 07/22/2021 14:56 EDT Electronically signed by Everardo [facility] Conversion Mining Plant Operator Cerner at 08/22/2022 3:52 PM CDT documented in this encounter Plan of Treatment Not on file documented as of this encounter Visit Diagnoses Not on filedocumented in this encounter Care Teams Hand Pattern Marker Relationship Specialty Start Date End Date Santosh Briones MD [address] [place], [place] [id number] PCP - General General Internal Medicine 04/18/22 04/22/22 Santosh Briones MD [address] [place] [address] PCP - General General Internal Medicine 04/23/22 Julius Cho MD [address] [place] [address] Referring Physician Internal Medicine 04/23/22 Lew Ross MD [address] [facility] [address] [place] [address] Cardiology 08/13/23 Karlos Islas PA-C [address] [place] [address] Cardiology 11/23/23 documented as of this encounter
--- OUTSIDE RECORDS SUMMARY | 2024-11-28 12:36 | XMS_ITS | Encounter Summary ---
Author Organization [employer] ([place], [place], [place], [place]) Address [address] [place] [address] Care Team Providers Care Pressure Control Supervisor Name Role Phone Santosh Santos MD Primary Care Provider [phone] Santosh Santos MD Primary Care Provider [phone] Julius Cho MD Unavailable Nader Wu MD Unavailable Karlos Islas PA-C Unavailable [phone] Encounter Details Date Type Department Care Team (Late st Contact Info) Description 07/19/2021 Transcribed Document [facility] [place] Family Medicine [address] [place] [address] ProviderAle MD [address] [place] [address] Social History Tobacco Use Types [...] speak a language other than Palestinian at [facility]? No 08/17/2023 Do you want help [...] Sex Assigned at Female 03/19/2022 10:49 AM INSURANCE SERVICE REPRESENTATIVE Legal Sex Female 5:46 PM CDT Gender Identity Female 03/19/2022 10:49 AM INSURANCE SERVICE REPRESENTATIVE Sexual Orientation Not on file COVID-19 Exposure Response Date Recorded In the last 10 days, have yo u been in contact with someone who was confirmed or suspected to have Coronavirus/COVID-19? No / Unsure 07/17/2022 7:53 AM EDT documented as of this encounter Miscellaneous Notes * Cerner Conversion Note - Historical Provider, - 07/19/2021 9:32 AM CDT [facility] [address] [place], [place] [id number] JANIS FIGUEREDO :1965 Visit Time:07/19/2021 Your Visit [...] at home: Medicines ??? Take or apply ytwn-rdv-tjaaefw and prescription medicines only as told by [...] cannot use soap and water, use hand tour conductor. ? Change your bandage as told by [...] provider. Document Revised: 11/30/2018 Document Reviewed: 11/30/2018 Mygeni Patient Education ?? 2020 My[employer]i Inc. Moderate Conscious Sedation, Adult, Care After [...] eating solid foods. General instructions ??? Take ycos-muk-pevlizo and prescription medicines only as told by [...] Reviewed: 03/15/2020 Elsevier Patient Education ?? 2020 My[employer]i Inc. Emergency Awareness and Preventative Care STROKE [...] Assistance with quitting is available by contacting 6-841-TXWT-NOW. This is a free resource providing counseling, support, and referral. Or you may contact your personal physician. [place] Suicide Prevention Lifeline: The National Suicide Prevention [...] was given the opportunity to ask questions. Patient/Tile Machine Operator Name: Patient/Tile Machine Operator Signature: Relationship to Patient: Clinician/Hospital Tile Machine Operator Signature: Date: Electronically signed by Jeremy Mcgee Conversion Dictating Transcribing Machine Servicer Cerner at 08/22/2022 4:00 PM CDT documented in this encounter Plan of Treatment Not on file documented as of this encounter Visit Diagnoses Not on filedocumented in this encounter Care Teams Pressure Control Supervisor Relationship Specialty Start Date End Date Santosh Santos MD [address] [facility] [address] PCP - General General Internal Medicine 04/18/22 04/22/22 Santosh Santos MD [address] [facility] [place] [address] PCP - General General Internal Medicine 04/23/22 Julius Cho MD [address] [place] [address] Referring Physician Internal Medicine 04/23/22 Nader Wu MD [address] [facility] [address] [place] [address] Cardiology 08/13/23 Karlos Islas PA-C [address] [facility] [place] [address] Cardiology 11/23/23 documented as of this encounter
--- OUTSIDE RECORDS SUMMARY | 2024-11-28 12:36 | XMS_ITS | Encounter Summary ---
Author Organization [employer] ([place], [place], [place], [place]) Address [address] [place] [address] Care Team Providers Care Student Development Coordinator Name Role Phone Santosh Briones MD Primary Care Provider [phone] Santosh Briones MD Primary Care Provider [phone] Julius Cho MD Unavailable Lew Ross MD Unavailable Karlos Islas PA-C Unavailable [phone] Encounter Details Date Type Department Care Team (Late st Contact Info) Description 12/19/2020 Transcribed Document [facility] [place] [facility] [place] [address] Ale Johnson MD [address] [place] [address] Social History Tobacco Use Types Packs/Day Years Used Date Smoking Tobacco: Never Assessed Comments Unknown Sex and Gender Information Value Date Recorded Sex Assigned at Female 03/19/2022 10:49 AM APARTMENT MAINTENANCE SUPERVISOR Legal Sex Female 5:46 PM CDT Gender Identity Female 03/19/2022 10:49 AM APARTMENT MAINTENANCE SUPERVISOR Sexual Orientation Not on file documented [...] - 12/19/2020 7:49 EDT Electronically signed by [facility] Conversion Collections Clerk Cerner at 08/22/2022 3:50 PM CDT documented in this encounter Plan of Treatment Not on file documented as of this encounter Visit Diagnoses Not on filedocumented in this encounter Care Teams Student Development Coordinator Relationship Specialty Start Date End Date Santosh Briones MD [address] [facility] [address] [place], [place] [id number] PCP - General General Internal Medicine 04/18/22 04/22/22 Santosh Briones MD [address] [facility] [address] [place], [place] [address] PCP - General General Internal Medicine 04/23/22 Julius Cho MD [address] [place] [address] Referring Physician Internal Medicine 04/23/22 Lew Ross MD [address] [facility] [address] [place] [address] Cardiology 08/13/23 Karlos Islas PA-C [address] [facility] [place] [address] Cardiology 11/23/23 documented as of this encounter
--- OUTSIDE RECORDS SUMMARY | 2024-11-28 12:36 | XMS_ITS | Encounter Summary ---
Author Organization [employer] ([place], [place], [place], [place]) Address [address] [place] [address] Care Team Providers Care Package Handler Name Role Phone Santosh Briones MD Primary Care Provider [phone] Santosh Briones MD Primary Care Provider [phone] Julius Cho MD Unavailable Lew Ross MD Unavailable Karlos Islas PA-C Unavailable [phone] Encounter Details Date Type Department Care Team (Late st Contact Info) Description 07/19/2021 Transcribed Document [facility] [address] [place] [address] ProviderAle MD [address] [place] [address] Social History Tobacco Use Types [...] Do you speak a language other than Martiniquais at [facility]? No 08/17/2023 Do you want [...] Sex Assigned at Female 03/19/2022 10:49 AM PUNCH OPERATOR Legal Sex Female 5:46 PM CDT Gender Identity Female 03/19/2022 10:49 AM PUNCH OPERATOR Sexual Orientation Not on file COVID-19 [...] - 07/19/2021 9:32 EDT Electronically signed by [facility] Conversion Smooth Stucco Resurfacer Cerner at 08/22/2022 3:59 PM CDT documented in this encounter Plan of Treatment Not on file documented as of this encounter Visit Diagnoses Not on filedocumented in this encounter Care Teams Package Handler Relationship Specialty Start Date End Date Santosh Briones MD [address] [place], [place] [id number] PCP - General General Internal Medicine 04/18/22 04/22/22 Santosh Briones MD [address] [facility] [address] [place], [place] [address] PCP - General General Internal Medicine 04/23/22 Julius Cho MD [address] [place] [address] Referring Physician Internal Medicine 04/23/22 Lew Ross MD [address] [facility] [address] [place] [address] Cardiology 08/13/23 Karlos Islas PA-C [address] [place] [address] Cardiology 11/23/23 documented as of this encounter
--- OUTSIDE RECORDS SUMMARY | 2024-11-28 12:36 | XMS_ITS | Data Portability ---
Author Organization [facility] ROBI [place] CLOS[place] Address [address] [facility] [address] [place] [address] Assessment No assessment recorded. Plan of Treatment [...] to start, pt is WBAT* 2022 023 [email or web address] [facility], [address], [address], [place], [address], 3 09:33:59 physical therapist referral - 1-2 visits per week for 4-6 weeks. Range of motion and strength, modalities, manual therapy, and development of home exercise program per therapist discretion. *Begin with ROM to start, pt is WBAT* 2022 023 [facility], [address] [facility], [place], [address], 3 22:51:41 home health referral - 1-2 visits of home health PT per week for 6-8 weeks. Range of motion up to 30-45 degrees for the next two weeks, toe touch weighbearin g to start, progressing to partial WB over the course of the next two weeks. Strength, modalities, manual therapy, and development of home exercise program per therapist discretion. 2022 023 [email or web address] [facility], [address], [address], [place], [address], 3 11:57:29 Procedures None recorded. Surgeries None [...] knee, 1 or 2 view [facility] [address] [place] [address] Sadi martin Name: JANIS FIGUEREDO Davidashahzad veronica [...] aguilera MD on 023 2:12 PM [email or web address] [facility] [address], [place], [address], 09/11/2022 09:34:11 08/27/19 23 08/26/2022 XR, knee, 1 or 2 view [facility] [address] [place] [address] Sadi martin Name: JANIS martin : 89 Sadi martin 55 Orderi ng Provid er: [facility] EXAM DATE: 2022 EXAM: XR LT [...] aguilera MD on 023 10:10 AM [email or web address] [facility] [address] , [place], [address], 09/10/2022 16:48:12 05/09/20 23 09/09/2022 XR, knee, 1 or 2 view [facility] [address] [place] [address] Sadi martin Name: JANIS martin : 89 Sadi martin 55 Orderi ng Provid er: [facility] EXAM DATE: 2022 EXAM: XR LT KNEE [...] ly Signed By: Deandra aguilera MD on 09/10/19 23 9:00 AM [email or web address] [facility] [address] , [place], [address], 09/10/2022 16:32:20 10/01/19 23 09/30/2022 XR, knee, 1 or 2 view [facility] [address] [place] [address] Sadi martin Name: JANIS martin : 961 Sadi martin 55 Orderi ng Provid er: [facility] EXAM DATE: 2022 EXAM: XR LT KNEE [...] aguilera MD on 023 9:15 AM [email or web address] [facility] [address] , [place], [address], 11/26/2022 16:01:04 Result Notes Documentation Provider Name and Address Organization Details Recorded Time Xr, Knee, 1 Or 2 View : [place] [address] [place] [address] Patient Name: JANIS FIGUEREDO Patient : 1965 [...] By: Diego Brower MD IE GOODEN PA-C [address] [place] [address], [address], [facility] 09/11/2022 09:34:11 Xr, Knee, 1 Or 2 View : [facility] [address] [place] [address] Patient Name: JANIS FIGUEREDO Patient : 1965 [...] Brower MD IE GOODEN PA-C [address] [place], [address], [facility] 09/10/2022 16:48:12 Xr, Knee, 1 Or 2 View : [facility] [address] [place] [address] Patient Name: JANIS FIGUEREDO Patient : 1965 [...] Brower MD IE GOODEN PA-C [address] [place], [address], [facility] 09/10/2022 16:32:20 Xr, Knee, 1 Or 2 View : [place] [address] [place] [address] Patient Name: JANIS FIGUEREDO Patient : 1965 [...] Diego Brower MD IE GOODEN PA-C [address] [facility] [place], [address], [facility] 11/26/2022 16:01:04 Procedures Surgical History Date Name Laterality Status Provider Name and Address Organization Details Recorded Time 04/23/20 prosthetic total arthroplasty of ankle completed Elena James [facility] 09/09/2022 09:02:08 Imaging Results None recorded. Procedure Notes None recorded. Medical Equipment None Reported. Allergies Allergen ID Allergen Name Allergen Category Reaction Reaction Severity Criticality Documentation Date Start Date Code Code System Note Provider Name and Address Organization Details Recorded Time 313444 Bactrim medicatio n Not available Not available Not available 08/12/2022 85805 9 RxNorm Jesu Jeter [facility] 3 14:02:58 296436 morphine medicatio n Not available Not available Not available 08/12/2022 7052 RxNorm Jesu Jeter [facility] 3 14:03:05 Medications Name Sig Start Date [...] t Available Vitals Date Recorded Body height Pain severity - 0-10 verbal numeric rating [Score] - Reported Pain severity - 0-10 verbal numeric rating [Score] - Reported Provider Name and Address Organization Details Last Updated DateTime 08/12/2022 170.18 cm 0 3 Jesu Jeter [facility] 08/12/2022 14:02:40 Date Recorded Body height Pain severity - 0-10 verbal numeric rating [Score] - Reported Provider Name and Address Organization Details Last Updated DateTime 08/26/2022 170.18 cm 1 Eyad Vitale [facility] 08/26/2022 09:58:04 Date Recorded Body height Body mass index (BMI) Body weight Pain severity - 0-10 verbal numeric rating [Score] - Reported Provider Name and Address Organization Details Last Updated DateTime 09/09/2022 170.18 cm 43.9 kg/m2 570813.86 g 2 Elena James [facility] 09/09/2022 09:00:15 Date Recorded Body height Body mass index (BMI) Body weight Pain severity - 0-10 verbal numeric rating [Score] - Reported Provider Name and Address Organization Details Last Updated DateTime 09/30/2022 170.18 cm 43.9 kg/m2 184262.86 g 0 Jesu Jeter [facility] 09/30/2022 09:13:11 Date Recorded Body height Body mass index (BMI) Body weight Pain severity - 0-10 verbal numeric rating [Score] - Reported Provider Name and Address Organization Details Last Updated DateTime 10/28/2022 170.18 cm 43.9 kg/m2 024694.86 g 0 Eyad Iam [facility] 10/28/2022 08:57:52 Social History Question Answer Notes LastModified by [employer] Details LastModified Time Tobacco Smoking Status Never Smoker Elena James [facility] 09/09/2022 09:00:55 What Is Your Level Of Caffeine Consumption? Moderate [email or web address] Information not available 09/09/2022 What Was The Date Of Your Most Recent Tobacco Screening? 09/09/2022 [email or web address] Information not available 09/09/2022 Has Tobacco Cessation Counseling Been Provided? No [email or web address] Information not available 09/09/2022 Sex: Unknown Functional Status Question Answer Note LastModified by [employer] Details LastModified Time Do you use any illicit or recreational drugs? No [email or web address] Information not available 09/09/2022 Do you or have you ever used any other forms of tobacco or nicotine? No [email or web address] Information not available 09/09/2022 What is your level of alcohol consumption? None Information not available 09/09/2022 Mental Status None recorded. Family History Nothing Reported. Medical History Condition Response Gout N Other N Kidney Stones N COPD N Pneumonia N Arthritis N Blood Clot N Cancer N Stroke N Kidney Disease N Heart Conditions N Migraines N Skin Problems N Rheumatic Fever N Bleeding Disorder N Tuberculosis N Genetic Disorder N AIDS/HIV N Asthma N Included as Review of Systems N Anxiety/Depression N Thyroid Disease N Hernia N Glaucoma N Anesthesia Complications N Blood Thinners Y Alcohol Overuse/Alcohol Abuse N High Cholesterol Y Liver Disease N Allergies/Hayfever N Immune System Disorder N Heart Attack ([place]) N Mental Illness N Neurological Problems N Diabetes N Seizures/Epilepsy N Sleep Apnea N Hypertension N Osteoporosis N Gynecological HistoryNo gynecological history recorded. Obstetrics History GPAL:G 0 P 0 0 0 0 Immunizations Vaccine Type Date Status Note Provider Nam e and Address Organization Details Recorded Time COVID-19, mRNA, LNP-S, PF, 30 mcg/0.3 mL dose 05/23/2020 completed Elena James null, [facility] 09/09/2022 09:00:22 COVID-19, mRNA, LNP-S, PF, 30 mcg/0.3 mL dose 10/29/2021 [facility] 09:00:22 COVID-19, mRNA, LNP-S, PF, 30 mcg/0.3 mL dose 02/01/2021 completed Elena James null, [facility] 09/09/2022 09:00:22 COVID-19, mRNA, LNP-S, PF, 30 mcg/0.3 mL dose 05/03/2020 completed Elena avendaño, [facility] 09/09/2022 09:00:22 Tdap 07/17/2022 completed Elena James [facility] 09/09/2022 09:00:22 Past Encounters Encounter ID Performer Location Encounter Start Date Encounter Closed Date Diagnosis/Indication Diagnosis SNOMED-CT Code Diagnosis ICD10 Code Diagnosis Note [id number] PAULIE GOODEN PA-C [facility] [address] [place] [address] 08/12/2022 13:21:20 08/12/2022 14:55:58 Closed fracture of lateral condyle of left femur [id number] S72.422A Assessment : Closed lateral femoral condyle fracture with mild displaceme nt. Plan: Dr. Nuñez consulted on the case today. Knee immobilize r for ambulation , put an order in for home health physical therapy. States she will use a walker most likely for ambulation . Follow-up in 2 weeks for repeat x-rays on arrival and recheck. [id number] PAULIE GOODEN PA-C [facility] [address] [address] 08/26/2022 09:17:49 08/26/2022 10:13:28 Closed fracture of lateral condyle of left femur [id number] S72.422D Assessment : Follow-up of mildly displaced lateral femoral condyle fracture Plan: Continue with knee immobilize r for ambulation begin gentle range of motion with therapy. Follow-up in 2 weeks for repeat x-rays on arrival and recheck. [id number] PAULIE GOODEN PA-C [facility] [address] [address] 09/09/2022 08:45:36 09/09/2022 09:23:43 Closed fracture of lateral condyle of left femur [id number] S72.422D Assessment : Status nearly 8 weeks [...] recheck, no x-rays needed at that visit. [id number] PAULIE GOODEN PA-C [facility] [address] [place] [address] 09/30/2022 08:53:14 09/30/2022 09:32:35 Closed fracture of lateral condyle of left femur [id number] S72.422D Assessment : Follow-up of lateral femoral condyle fracture Plan: She is doing great from a knee perspectiv e but still using the crutches a bit from the ankle surgery that she had. Follow-up in 4 weeks for recheck of the left knee. No x-rays needed at that time. [id number] PAULIE GOODEN PA-C [facility] [address] [place] [address] 10/28/2022 08:51:03 10/28/2022 09:08:47 Closed fracture of lateral condyle of left femur [id number] S72.422D Assessment : Follow-up of lateral femoral [...] Mcduffie Member ID Guarantor Name 08/26/2023 1 [id number] Jose Ramon Figueredo [id number] Janis Figueredo 08/24/2023 GENERIC INSURANCE - MOVED-HOLD Janis Figueredo 09/15/2024 PAYMENT PLAN Janis Figueredo 08/28/2023 1 [place] [id number] Janis Figueredo [id number] Janis Figueredo OBGyn Episode No OBEpisode recorded.
--- OUTSIDE RECORDS SUMMARY | 2024-11-28 12:36 | XMS_ITS | Encounter Summary ---
Author Organization [employer] ([place], [place], [place], [place]) Address [address] [place] [address] Care Team Providers Care Security Administrator Name Role Phone Santosh Briones MD Primary Care Provider [phone] Santosh Briones MD Primary Care Provider [phone] Julius Cho MD Unavailable Lew Ross MD Unavailable Karlos Islas PA-C Unavailable [phone] Encounter Details Date Type Department Care Team (Late st Contact Info) Description 12/19/2020 Transcribed Document [facility] Family Medicine [address] [place] [address] ProviderAle MD [address] [place] [address] Social History Tobacco Use Types Packs/Day Years Used Date Smoking Tobacco: Never Assessed Comments Unknown Sex and Gender Information Value Date Recorded Sex Assigned at Female 03/19/2022 10:49 AM ANIMAL CHIROPRACTOR Legal Sex Female 5:46 PM CDT Gender Identity Female 03/19/2022 10:49 AM ANIMAL CHIROPRACTOR Sexual Orientation Not on file documented as of this encounter Miscellaneous Notes * Cerner Conversion Note - Ale ProviderMD - 12/19/2020 3:48 PM CDT DATE OF PROCEDURE: 12/19/2020 1965 SURGEON: Massimo Blake DPM SEAT COVERER: None. PREOPERATIVE DIAGNOSES: Right Achilles tendon tear; [...] We will continue to follow this patient. /[id number] YONG Enciso/JALEEL / BMLizbet / MODL /[id number] documented in this encounter Plan of Treatment Not on file documented as of this encounter Visit Diagnoses Not on filedocumented in this encounter Care Teams Security Administrator Relationship Specialty Start Date End Date Santosh Birones MD [address] [place], [place] [address] PCP - General General Internal Medicine 04/18/22 04/22/22 Santosh Briones MD [address] [facility] [address] [place], [place] [address] PCP - General General Internal Medicine 04/23/22 Julius Cho MD [address] [address] Referring Physician Internal Medicine 04/23/22 Lew Ross MD [address] [facility] [address] [place] [address] Cardiology 08/13/23 Karlos Islas PA-C [address] [facility] [address] [place] [address] Cardiology 11/23/23 documented as of this encounter
--- OUTSIDE RECORDS SUMMARY | 2024-11-28 12:36 | XMS_ITS | Encounter Summary ---
Author Organization [employer] ([place], [place], [place], [place]) Address [address] [place] [address] Care Team Providers Care Section Leader Name Role Phone Santosh Santos MD Primary Care Provider [phone] Santosh Santos MD Primary Care Provider [phone] Julius Cho MD Unavailable Nader Wu MD Unavailable Karlos Islas PA-C Unavailable [phone] Encounter Details Date Type Department Care Team (Late st Contact Info) Description 07/23/2021 Transcribed Document [facility] [address] [place] [address] ProviderAle MD [address] [place] [address] Social History Tobacco Use Types [...] Do you speak a language other than [place] at [facility]? No 08/17/2023 Do you want help [...] Sex Assigned at Female 03/19/2022 10:49 AM CUT TOBACCO BULKER Legal Sex Female 5:46 PM CDT Gender Identity Female 03/19/2022 10:49 AM CUT TOBACCO BULKER Sexual Orientation Not on file COVID-19 Exposure Response Date Recorded In the last 10 days, have yo u been in contact with someone who was confirmed or suspected to have Coronavirus/COVID-19? No / Unsure 07/17/2022 7:53 AM EDT documented as of this encounter Miscellaneous Notes * Cerner Conversion Note - Historical Provider, - 07/23/2021 3:25 PM CDT [facility] [address] [place] [address] JANIS FIGUEREDO :1965 Visit Time:07/23/2021 Your Visit [...] instructed Bring your compression stockings. Where: [address] [facility] [address] [place] [address]- Business (1) Medications What How Much When [...] at home: Medicines ??? Take or apply bciy-rxg-wjtqjua and prescription medicines only as told by [...] cannot use soap and water, use hand gear cutter. ? Change your bandage as told by [...] provider. Document Revised: 11/30/2018 Document Reviewed: 11/30/2018 [employer] (ML4D) Patient Education ?? 2021 [employer] Moderate Conscious Sedation, Adult, Care After [...] eating solid foods. General instructions ??? Take edvy-hzv-biiejad and prescription medicines only as told by [...] provider. Document Revised: 08/17/2020 Document Reviewed: 03/15/2020 [employer] (ML4D) Patient Education ?? 2020 [employer] Emergency Awareness and Preventative Care STROKE [...] Assistance with quitting is available by contacting 5-559-HJOXPoly AdaptiveNOW. This is a free resource providing counseling, [...] was given the opportunity to ask questions. Patient/Group President Name: Patient/Group President Signature: Relationship to Patient: Clinician/Hospital Group President Signature: Date: Electronically signed by Everardo [facility] Conversion Structural Steel Detailer Cerner at 08/22/2022 3:47 PM CDT documented in this encounter Plan of Treatment Not on file documented as of this encounter Visit Diagnoses Not on filedocumented in this encounter Care Teams Section Leader Relationship Specialty Start Date End Date Santosh Santos MD [address] [facility] [place] [address] PCP - General General Internal Medicine 04/18/22 04/22/22 Santosh Santos MD [address] [place] [address] PCP - General General Internal Medicine 04/23/22 Julius Cho MD [address] [place] [address] Referring Physician Internal Medicine 04/23/22 Nader Wu MD [address] [place] [address] [address] [place] [address] Cardiology 08/13/23 Karlos Islas PA-C [address] [facility] [address] [place] [address] Cardiology 11/23/23 documented as of this encounter
--- OUTSIDE RECORDS SUMMARY | 2024-11-28 12:36 | XMS_ITS | Encounter Summary ---
Author Organization [employer] ([place], [place], [place], [place]) Address [address] [place] [address] Care Team Providers Care Artificial Fly Tier Name Role Phone Santosh Briones MD Primary Care Provider [phone] Santosh Briones MD Primary Care Provider [phone] Julius Cho MD Unavailable Lew Ross MD Unavailable Karlos Islas PA-C Unavailable [phone] Encounter Details Date Type Department Care Team (Late st Contact Info) Description 07/19/2021 Transcribed Document [facility] [address] [place] [address] ProviderAle MD [address] [place] [address] Social History Tobacco Use Types [...] Do you speak a language other than Austrian at [facility]? No 08/17/2023 Do you want help with [...] Sex Assigned at Female 03/19/2022 10:49 AM FACILITY REHAB DIRECTOR Legal Sex Female 5:46 PM CDT Gender Identity Female 03/19/2022 10:49 AM FACILITY REHAB DIRECTOR Sexual Orientation Not on file COVID-19 Exposure [...] Source : Stated Height Entry Format : [place] Height, Feet : 5 ft(Converted to: 152 cm, 60 Inch) Height, Inches : 7 Inch(Converted to: 0 ft 7 Inch, 17.78 cm) Clinical Height : 170.18 cm Weight Source : Standing scale Weight Entry Format : [place] Clinical Dosing Weight : 127.27 kg Weight, Pounds : 280 lb Body Surface Area (BSA) : 2.33 m2 Body Mass Index : 43.9 kg/m2 (>HHI) [place] Body Weight : 61 kg FAISAL CISNEROS RN - 07/19/2021 6:45 EDT Health Histories Smoking Status : Never (less than 100 in lifetime; none in last 30 days) Smokeless Tobacco Status : Never Implant/Device Type, Solar Energy Systems Designer and Model : breast implants IVC filter [...] FAISAL CISNEROS RN - 07/19/2021 6:45 EDT [place] Suicide Severity Rating Scale (C-SSRS) CSSRS Past [...] 07/19/2021 6:45 EDT General Info Support Person/Patient Volunteer Recruitment Coordinator : Yes Support Person/Pt Rep Name : Jose Ramon Lorenzana - Support Person/Pt Rep Contact Information : [phone] Want Family/Rep/Phys Notified of Admit : No Emergency Contact #1 : . Emergency Contact #1 Phone Number : . Emergency Contact #1 Relationship : . Emergency Contact #2 : . Emergency Contact #2 Phone Number : . Emergency Contact #2 Relationship : . Primary Language : Austrian Communication Barrier : None Evaluator Transfer Students Needed : No FAISAL CISNEROS RN - [...] Scale Risk Level : 25-45 Medium Risk [place] Interventions : Adequate lighting, Assistive devices [...] - 07/19/2021 6:45 EDT Electronically signed by [facility] Conversion Solar Energy Systems Designer Cerner at 08/22/2022 3:45 PM CDT documented in this encounter Plan of Treatment Not on file documented as of this encounter Visit Diagnoses Not on filedocumented in this encounter Care Teams Artificial Fly Tier Relationship Specialty Start Date End Date Santosh Briones MD [address] [place], [place] [address] PCP - General General Internal Medicine 04/18/22 04/22/22 Santosh Briones MD [address] [place], [place] [address] PCP - General General Internal Medicine 04/23/22 Julius Cho MD [address] [place] [address] Referring Physician Internal Medicine 04/23/22 Lew Ross MD [address] [facility] [address] [place] [address] Cardiology 08/13/23 Karlos Islas PA-C [address] [facility] [address] [place] [address] Cardiology 11/23/23 documented as of this encounter
--- OUTSIDE RECORDS SUMMARY | 2024-11-28 12:36 | XMS_ITS | Encounter Summary ---
Author Organization [employer] ([place], [place], [place], [place]) Address [address] [place] [address] Care Team Providers Care Behavioral Modification Assistant Name Role Phone Santosh Briones MD Primary Care Provider [phone] Santosh Briones MD Primary Care Provider [phone] Julius Cho MD Unavailable Lew Ross MD Unavailable Karlos Islas PA-C Unavailable [phone] Encounter Details Date Type Department Care Team (Late st Contact Info) Description 12/14/2020 Transcribed Document [facility] Family [place] [facility] [place] [address] Ale Johnson MD [address] [place] [address] Social History Tobacco Use Types Packs/Day Years Used Date Smoking Tobacco: Never Assessed Comments Unknown Sex and Gender Information Value Date Recorded Sex Assigned at Female 03/19/2022 10:49 AM WORKERS' COMPENSATION MAGISTRATE Legal Sex Female 5:46 PM CDT Gender Identity Female 03/19/2022 10:49 AM WORKERS' COMPENSATION MAGISTRATE Sexual Orientation Not on file documented as [...] Source : Measured Height Entry Format : [place] Height, Feet : 5 ft(Converted to: 152 cm, 60 Inch) Height, Inches : 7 Inch(Converted to: 0 ft 7 Inch, 17.78 cm) Clinical Height : 170.18 cm Weight Source : Standing scale Weight Entry Format : [place] Clinical Dosing Weight : 116.82 kg Weight, Pounds : 257 lb Body Surface Area (BSA) : 2.25 m2 Body Mass Index : 40.3 kg/m2 (>HHI) [place] Body Weight : 61 kg PETROS HERNDON RN - 12/17/2020 10:31 EDT Health Histories Smoking Status : Never (less than 100 in lifetime; none in last 30 days) Smokeless Tobacco Status : Never Implant/Device Type, E Learning Manager and Model : breast implants IVC filter [...] Tru Barkley Rn - 12/14/2020 10:55 EDT [place] Suicide Severity Rating Scale (C-SSRS) CSSRS Past [...] Info Legal Guardian : Spouse Support Person/Patient Manager Copy : Yes Support Person/Pt Rep Name : Jose Ramon Lorenzana - Support Person/Pt Rep Contact Information : [phone] Want Family/Rep/Phys Notified of Admit : No Tru Barkley Rn - 12/14/2020 10:55 EDT Emergency Contact #1 : Jose Ramon Lorenzana Emergency Contact #1 Emergency Contact #1 Relationship : Pérez GilViri - 12/19/2020 6:14 EDT Emergency Contact #2 : ` Emergency Contact #2 Phone Number : ` Emergency Contact #2 Relationship : ` Information Obtained From : Patient Primary Language : Beninese Communication Barrier : None Client Liaison Needed : No Tru Barkley Rn - [...] on filedocumented in this encounter Care Teams Behavioral Modification Assistant Relationship Specialty Start Date End Date Santosh Briones MD [address] [place], [place] [address] PCP - General General Internal Medicine 04/18/22 04/22/22 Santosh Briones MD [address] [facility] [address] [place], [place] [address] PCP - General General Internal Medicine 04/23/22 Julius Cho MD [address] [place] [address] Referring Physician Internal Medicine 04/23/22 Lew Ross MD [address] [facility] [address] [place] [address] Cardiology 08/13/23 Karlos Islas PA-C [address] [facility] [address] [place] [address] Cardiology 11/23/23 documented as of this encounter
--- OUTSIDE RECORDS SUMMARY | 2024-11-28 12:36 | XMS_ITS | Encounter Summary ---
Author Organization [employer] ([place], [place], [place], [place]) Address [address] [place] [address] Care Team Providers Care Contact Officer Name Role Phone Santosh Briones MD Primary Care Provider [phone] Santosh Briones MD Primary Care Provider [phone] Julius Cho MD Unavailable Lew Ross MD Unavailable Karlos Islas PA-C Unavailable [phone] Encounter Details Date Type Department Care Team (Late st Contact Info) Description 07/23/2021 Transcribed Document [facility] [place] [address] [place] [address] ProviderAle MD [address] [place] [address] Social History Tobacco Use Types [...] Do you speak a language other than [place] at [facility]? No 08/17/2023 Do [...] Sex Assigned at Female 03/19/2022 10:49 AM PRACTICE PERFORMANCE MANAGER Legal Sex Female 5:46 PM CDT Gender Identity Female 03/19/2022 10:49 AM PRACTICE PERFORMANCE MANAGER Sexual Orientation Not on file COVID-19 [...] 07/23/2021 15:12 EDT Electronically signed by Everardo [facility] Conversion Territory Outside Sales Manager Cerner at 08/22/2022 3:53 PM CDT documented in this encounter Plan of Treatment Not on file documented as of this encounter Visit Diagnoses Not on filedocumented in this encounter Care Teams Contact Officer Relationship Specialty Start Date End Date Santosh Briones MD [address] [facility] [address] [place], [place] [id number] PCP - General General Internal Medicine 04/18/22 04/22/22 Santosh Briones MD [address] [facility] [address] [place] [address] PCP - General General Internal Medicine 04/23/22 Julius Cho MD [address] [place] [address] Referring Physician Internal Medicine 04/23/22 Lew Ross MD [address] [facility] [address] [place] [address] Cardiology 08/13/23 Karlos Islas PA-C [address] [place] [address] Cardiology 11/23/23 documented as of this encounter
--- OUTSIDE RECORDS SUMMARY | 2024-11-28 12:36 | XMS_ITS | Encounter Summary ---
Author Organization [employer] ([place], [place], [place], [place]) Address [address] [place] [address] Care Team Providers Care Pill Coater Name Role Phone Santosh Briones MD Primary Care Provider [phone] Santosh Briones MD Primary Care Provider [phone] Julius Cho MD Unavailable Lew Ross MD Unavailable Karlos Islas PA-C Unavailable [phone] Encounter Details Date Type Department Care Team (Late st Contact Info) Description 12/19/2020 Transcribed Document [facility] [place] Family [place] [address] ProviderAle MD [address] [place] [address] Social History Tobacco Use Types Packs/Day Years Used Date Smoking Tobacco: Never Assessed Comments Unknown Sex and Gender Information Value Date Recorded Sex Assigned at Female 03/19/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 [address] JANIS FIGUEREDO :1965 Visit Time:12/19/2020 What [...] Comments Follow up Thursday as scheduled Where: [address] [place] [address] Medications What How Much When Instructions Next Dose acetaminophen-oxyCODONE (acetaminophen-oxyCODONE 325 mg-7.5 mg oral tablet) 1 Tablet(s) Oral Every 6 Hours as needed for for pain Pickup at [place] [address] apixaban (Eliquis 5 mg oral tablet) 1 Tablet(s) Oral Two Times A Day atorvastatin (atorvastatin 40 mg oral tablet) 1 Tablet(s) Oral Every Day cephalexin (Keflex 500 mg oral capsule) 1 Capsule(s) Oral Every 8 Hours Duration: 1 Day(s) Pickup at [place] [address] cyanocobalamin (Vitamin B12 1000 mcg oral tablet) [...] for as needed for nausea/vomiting Pickup at [place] [address] Pharmacy Information [place] [address]: [address] [place], [place] [id number] [phone] Take your medications faithfully. Do NOT skip [...] activities are safe for you. ??? Take jyqg-bpn-enpbxbl and prescription medicines only as told by [...] provider. Document Revised: 04/23/2018 Document Reviewed: 12/04/2017 [employer] Patient Education ?? 2020 [employer]. Emergency Awareness and Preventative Care STROKE is [...] Assistance with quitting is available by contacting 9-022-CTXG-NOW. This is a free resource providing counseling, [...] was given the opportunity to ask questions. Patient/Accounts Payable Representative Name: Patient/Accounts Payable Representative Signature: Relationship to Patient: Clinician/Hospital Accounts Payable Representative Signature: Date: documented in this encounter Plan of Treatment Not on file documented as of this encounter Visit Diagnoses Not on filedocumented in this encounter Care Teams Pill Coater Relationship Specialty Start Date End Date Santosh Briones MD [address] [place] [address] [place] [address] PCP - General General Internal Medicine 04/18/22 04/22/22 Santosh Briones MD [address] [place] [address] [place] [address] PCP - General General Internal Medicine 04/23/22 Julius Cho MD [address] [place] [address] Referring Physician Internal Medicine 04/23/22 Lew Ross MD [address] [facility] [address] [place] [address] Cardiology 08/13/23 Karlos Islas PA-C [address] [facility], [facility] [address] [place] [address] Cardiology 11/23/23 documented as of this encounter
--- OUTSIDE RECORDS SUMMARY | 2024-11-28 12:36 | XMS_ITS | Encounter Summary ---
Author Organization [employer] ([place], [place], [place], [place]) Address [address] [place] [address] Care Team Providers Care Alterations Sewer Name Role Phone Santosh Briones MD Primary Care Provider [phone] Santosh Briones MD Primary Care Provider [phone] Julius Cho MD Unavailable Lew Ross MD Unavailable Karlos Islas PA-C Unavailable Encounter Details Date Type Department Care Team (Late st Contact Info) Description 12/19/2020 Transcribed Document [facility] [place] Medicine [facility] [place] [address] Ale Johnson MD [address] [place] [address] Social History Tobacco Use Types Packs/Day Years Used Date Smoking Tobacco: Never Assessed Comments Unknown Sex and Gender Information Value Date Recorded Sex Assigned at Female 03/19/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 Name: JANIS FIGUEREDO BILLIE Sands/Sex: 1965 Female [facility] Rec #: [id number] Physician: MEE TUCKER, DPM-POD Financial #: [id number] Pt. Type: O Room/Bed: /9 Admit/Disch: 12/19/20 06:32:00 - 12/19/20 12:11:00 Institution: [facility] IntraOp Case Attendance Entry 1 Entry 2 Entry 3 Case Attendee MEE TUCKER BOWEN, JON B, MD-YVETTE ROSEN APRN DPM-POD Role Performed Surgeon/Proceduralist, Anesthesiologist of [facility]/Nurse Sales Exhibitor First Record Time In 12/19/20 07:55:00 12/19/20 [...] Julienne Atkins Rn Poe, Kali, Letitia Reese, Windshield Repair Technician Role Performed Dietist, First Dietist, Second Scrub, First Time In 12/19/20 07:55:00 [...] Case Attendee ROBERTO BELCHER RN Role Performed Dietist, First Time In 12/19/20 09:45:00 Time Out 12/19/20 10:03:00 Procedure Achilles Tendon Repair(Right), Bone Spur Excision Other Attendee BREAK Superficial Wound Closed By: Last Modified By: Julienne Atkins Rn 12/19/20 10:28:51 [facility] IntraOp Case Attendance Audit 12/19/20 10:28:51 Pvc Monitor: [id number] Modifier: [id number] 1 <+> Time Out 1 <*> Procedure [...] Tendon Repair(Right), Bone Spur Excision 12/19/20 10:03:51 Pvc Monitor: [id number] Modifier: [id number] <+> Time Out 7 <*> Procedure Achilles Tendon Repair(Right), Bone Spur Excision 12/19/20 09:47:32 Pvc Monitor: [id number] Modifier: [id number] 1 <*> Procedure Achilles Tendon Repair(Right), Bone [...] Procedure <+> 7 Other Attendee 12/19/20 07:58:46 Pvc Monitor: [id number] Modifier: [id number] <+> 6 Procedure [facility] IntraOp Case Times Entry 1 Patient In Room Time 12/19/20 07:55:00 Out Room Time 12/19/20 10:23:00 Anesthesia Start Time 12/19/20 07:55:00 Stop Time 12/19/20 10:23:00 Surgery / Procedure Times Start Time 12/19/20 08:35:00 Stop Time 12/19/20 10:16:00 Last Modified By: Julienne Atkins Rn 12/19/20 10:28:41 [facility] IntraOp Case Times Audit 12/19/20 10:28:41 Pvc Monitor: [id number] Modifier: [id number] <+> 1 Out Room Time <+> 1 Stop Time <+> 1 Stop Time 12/19/20 08:37:30 Pvc Monitor: [id number] Modifier: [id number] <+> 1 Start Time [facility] IntraOp Cautery Entry 1 ESU Identification Cautery Type Monopolar ESU ID Number [id number] ID Type Hospital Number Cautery Settings Cut [...] Modified By: Julienne Atkins Rn 12/19/20 07:59:56 [facility] IntraOp Communication Entry 1 Communication To Family/Significant other Communication By Domingo Conklin RN Date and Time 12/19/20 08:37:00 Last Modified By: Julienne Atkins Rn 12/19/20 08:37:40 [facility] IntraOp Counts Verification Entry 1 Procedure Achilles Tendon Repair(Right), Bone Spur Excision Count Info Count Type Sponge, Sharps Counts Verification Baseline/pre-procedure Sequence Count Results Not Applicable Counts Performed By Count Performed By Letitia Washington (Scrub) Windshield Repair Technician Count Performed By Domingo Conklin RN (RN) Last Modified By: Julienne Atkins Rn 12/19/20 08:00:18 [facility] IntraOp Counts Final Entry 1 Procedure Achilles Tendon Repair(Right), Bone Spur Excision Final Count Info Count Type Sponge, Sharps Counts Verification Skin Closure/end of Sequence procedure Count Results Correct, surgeon notified Counts Performed By Count Performed By Letitia Washington (Scrub) Windshield Repair Technician Count Performed By Julienne Atkins Rn (RN) Last Modified By: Julienne Atkins Rn 12/19/20 10:05:43 [facility] IntraOp Cultures and Spec Summary Entry 1 Cultrures and Specimens Specimen Ordered: Yes Test(s) Routine/Path-Lab Requested/Final Disposition Last Modified By: Julienne Atkins Rn 12/19/20 09:32:55 General Comments: A. RIGHT FOOT BONE [facility] IntraOp Delays Entry 1 Delay Reason Patient, other (document in comment) Duration 25 Minute(s) Comment PATIENT GETTING NERVE BLOCK Last Modified By: Julienne Atkins Rn 12/19/20 08:00:49 [facility] IntraOp Departure from OR Entry 1 Integumentary Assessment Integumentary WDL Assessment WDL Transfer/Handoff Transfer to PACU Phase I Handoff Method Bedside/Face to face, Phone call Post-op Transport Stretcher/Gurney Via Patient Transport YVETTE CEJA, Accompanied by Wilbert CLEVELAND Tracy R, Rn, Domingo Conklin RN Last Modified By: Julienne Atkins Rn 12/19/20 08:01:04 [facility] IntraOp Drains and Tubes Entry 1 Device Type Dane Size 1/4 Drain/Tube Activity Inserted Drain/Tube Suction [place] Drain/Tube Drainage Red Device Location RIGHT LOWER LEG Method of Drainage [place] Last Modified By: Julienne Atkins Rn 12/19/20 08:49:09 [facility] IntraOp Dressing and Packing Entry 1 Type Dressing Location RIGHT FOOT Wound Dressing Item 4x4's, Kerlix/Janie, Johnnie, Other Applied By MEE TUCKER, DPOswald-POD Other Comments SILVER DRESSING Last Modified By: Julienne Atkins Rn 12/19/20 10:05:02 [facility] IntraOp Dressing and Packing Audit 12/19/20 10:05:02 Pvc Monitor: [id number] Modifier: [id number] 1 <*> Wound Dressing Item 4x4's, Kerlix/Janie, Johnnie 1 <+> Applied By 1 <*> Other Comments ACTICOAT [facility] IntraOp Fire Risk Assessment Entry 1 Fire [...] Modified By: Julienne Atkins Rn 12/19/20 08:01:48 [facility] IntraOp General Case Automobile Engine 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 1 Case Information OR OR 02 [facility] Case Level 1 Room Verified Yes Wound Class I - Clean Specialty Podiatry Anesthesia Type General ASA Class 3 Diagnosis Preop Diagnosis RIGHT ACHILLES INJURY Postop Same As Preop No Postop Diagnosis SEE MD NOTES Last Modified By: Julienne Atkins Rn 12/19/20 08:02:15 [facility] IntraOp Implant Log Entry 1 Entry 2 Entry 3 Type Tissue Implant Implant (Synthetic) Implant (Synthetic) (Biologic) Implant Log Implant Type Hardware Hardware Tissue Implant Type Tissue Implant IMP STRAVIX [id number] ARTHREX ANCHOR KT IB PLUS BC W/CC FT Identification [id number] Description Implant Quantity 1 2 1 Implant Site RIGHT ANKLE RIGHT FOOT RIGHT FOOT Implant Identification Model Number Implant [id number] Identification Serial Number Implant [id number] Identification Lot Number Implant [employer] ARTHREX Arthrex Identification Gun Barrel Finisher Name: Implant [id number] Identification Catalog Number Implant Size Implant Has an Yes Yes Yes Expiration Date Implant Expiration 04/13/23 08/01/22 07/01/22 Date Wasted Radioactive Material Time Implanted Tissue Implant Continue for Tissue Implant Documentation Tissue Identification Number Graft Prep Per Yes Gun Barrel Finisher Instructions: Tissue Preparation N/A Method: Reconstitution Solution: Reconstitution Solution Lot Number Reconstitution Solution Expiration Date: Thawing Solution Thawing Solution Lot Number Thawing Solution Expiration Date Preparation Materials, Other Preparation Materials, Other Lot Number Preparation Materials, Other Expiration Date MEE Ash, Prepared/Processed DPM-POD By Gun Barrel Finisher Yes Paperwork Completed Implant Type Comment Last Modified By: Julienne Atkins Rn Compton, Tracy R, Rn Compton, Tracy R, Rn 12/19/20 09:32:32 12/19/20 09:32:32 12/19/20 09:32:32 Entry 4 Type Implant (Synthetic) Implant Log Implant Type Tissue Implant Type Implant ARTHREX SUTURE TAPE REF Identification [id number] Description Implant Quantity 1 Implant Site OPSITE Implant Identification Model Number Implant Identification Serial Number Implant [id number] Identification Lot Number Implant Identification Gun Barrel Finisher Name: Implant Identification Catalog Number Implant Size Implant Has an Yes Expiration Date Implant Expiration 08/31/25 Date Wasted Radioactive Material Time Implanted Tissue Implant Continue for Tissue Implant Documentation Tissue Identification Number Graft Prep Per Gun Barrel Finisher Instructions: Tissue Preparation Method: Reconstitution Solution: Reconstitution Solution Lot Number Reconstitution Solution Expiration Date: Thawing Solution Thawing Solution Lot Number Thawing Solution Expiration Date Preparation Materials, Other Preparation Materials, Other Lot Number Preparation Materials, Other Expiration Date Tissue Prepared/Processed By Gun Barrel Finisher Paperwork Completed Implant Type Comment Last Modified By: Julienne Atkins Rn 12/19/20 10:03:35 [facility] IntraOp Implant Log Audit 12/19/20 10:03:35 Pvc Monitor: [id number] Modifier: [id number] <+> 4 Implant Identification Description <+> 4 Implant Identification Lot Number <+> 4 Implant Expiration Date <+> 4 Implant Site <+> 4 Implant Quantity <+> 4 Implant Has an Expiration Date <+> 4 Type [facility] IntraOp Intraoperative Assessment Entry 1 Handoff Method [...] Modified By: Julienne Atkins Rn 12/19/20 08:03:12 [facility] IntraOp Intraoperative Equipment Entry 1 Type Equipment Equipment Equipment Yumi Suction System ID Number [id number] Setting ON Intraop Monitoring Blood Pressure Non-Invasive BP Device Source Antiembolic Devices Scopes Photo/Video Documentation Last Modified By: Julienne Atkins Rn 12/19/20 08:03:54 [facility] IntraOp Medication Admin Entry 1 Medication/Irrigant LAILA IRR NACL 0.9PCT 2000ML [facility]-[id number] Time Administered 12/19/20 08:35:00 Route of IRRIGATION Administration Dose Administered By MEE TUCKER DPOswald-POD Procedure Irrigation Last Modified By: Julienne Atkins Rn 12/19/20 09:04:22 [facility] IntraOp Medication Admin Audit 12/19/20 09:04:22 Pvc Monitor: [id number] Modifier: [id number] 1 <*> Medication/Irrigant LAILA IRR NACL 0.9PCT 2000ML [facility]-[id number] 1 <+> Time Administered [facility] IntraOp Patient Positioning Entry 1 Procedure Achilles [...] Modified By: Julienne Atkins Rn 12/19/20 08:05:17 [facility] IntraOp Sign In Entry 1 Patient, Site, [...] Modified By: Julienne Atkins Rn 12/19/20 08:05:29 [facility] IntraOp Sign Out Entry 1 RN Confirmation [...] Modified By: Julienne Atkins Rn 12/19/20 10:28:48 [facility] IntraOp Sign Out Audit 12/19/20 10:28:48 Pvc Monitor: [id number] Modifier: [id number] <+> 1 RN Sign Out Signature Date/Time [facility] IntraOp Skin Prep Entry 1 Procedure Achilles Tendon Repair(Right), Bone Spur Excision Prescribed Yes Pre-Surgical Prep Completed Prep Area RIGHT FOOT AND LOWER LEG TO KNEE Intraop Prep Integumentary WDL Assessment WDL Prep Agents Chloraprep Prep by Julienne Atkins Rn Hair Removal Methods No hair removal performed Last Modified By: Julienne Atkins Rn 12/19/20 08:08:22 [facility] IntraOp Surgical Procedures Entry 1 Entry 2 [...] Tracy R, Rn 12/19/20 10:28:50 12/19/20 10:28:50 [facility] IntraOp Surgical Procedures Audit 12/19/20 10:28:50 Pvc Monitor: [id number] Modifier: [id number] <+> 1 Stop <+> 2 Stop [facility] IntraOp Temp Regulation Devices Entry 1 Temp Regulation Temperature Forced Air Warming Regulation Device device, Warm blankets Temperature 766702 Regulation Device Serial/Unit Number Temperature Upper body Regulation Site Temperature Device on Setting Temperature YVETTE CEJA APRN Regulation Device Applied by Last Modified By: Julienne Atkins Rn 12/19/20 08:39:43 [facility] IntraOP Time Out Entry 1 Procedure to [...] Modified By: Julienne Atkins Rn 12/19/20 08:38:12 [facility] IntraOp Tourniquet Entry 1 Type Pneumatic Serial/Unit Number [id number] Setting 300 mmHg Pheumatic Yes Tourniquet Checked Per Protocol Placement Thigh, right upper Skin Protection - Yes Padded Under Cuff Applied By Julienne Atkins Rn Removed By MEE TUCKER DPM-POD Times Start Time 12/19/20 08:34:00 Stop Time 12/19/20 10:15:00 Total Time 101 calculated manually (Mins) Last Modified By: Julienne Atkins Rn 12/19/20 10:16:00 [facility] IntraOp Tourniquet Audit 12/19/20 10:16:00 Pvc Monitor: [id number] Modifier: [id number] <+> 1 Total Time calculated manually (Mins) <+> 1 Stop Time Case Comments <None> Finalized By: KENDRA PROCTOR Document Signatures Signed By: Julienne Atkins Rn 12/19/20 10:28 KENDRA PROCTOR 12/20/20 12:08 KENDRA PROCTOR 12/21/20 10:05 Unfinalized History Date/Time Username Reason for Unfinalizing Freetext Reason for Unfinalizing 12/20/20 12:03 [email or web address] Correct Billing 12/21/20 10:05 CHEN Correct Billing Electronically signed by [facility] Conversion Director Export Cerner at 08/22/2022 3:52 PM CDT documented in this encounter Plan of Treatment Not on file documented as of this encounter Visit Diagnoses Not on filedocumented in this encounter Care Teams Alterations Sewer Relationship Specialty Start Date End Date Santosh Briones MD [address] [place], [place] [id number] PCP - General General Internal Medicine 04/18/22 04/22/22 Santosh Briones MD [address] [place], [place] [id number] PCP - General General Internal Medicine 04/23/22 Julius Cho MD [address] [place] [address] Referring Physician Internal Medicine 04/23/22 Lew Ross MD [address] [facility] [address] [place] [address] Cardiology 08/13/23 Karlos Islas PA-C [address] [facility], [facility] [address] [place] [id number] Cardiology 11/23/23 documented as of this encounter
--- OUTSIDE RECORDS SUMMARY | 2024-11-28 12:36 | XMS_ITS | Encounter Summary ---
Author Organization [employer] ([place], [place], [place], [place]) Address [address] [place] [address] Care Team Providers Care Gui Developer Name Role Phone Santosh Briones MD Primary Care Provider [phone] Santosh Briones MD Primary Care Provider [phone] Julius Cho MD Unavailable Lew Ross MD Unavailable Karlos Islas PA-C Unavailable [phone] Encounter Details Date Type Department Care Team (Late st Contact Info) Description 12/19/2020 Transcribed Document [facility] [place] [facility] [place] [address] Ale Johnson MD [address] [place] [address] Social History Tobacco Use Types Packs/Day Years Used Date Smoking Tobacco: Never Assessed Comments Unknown Sex and Gender Information Value Date Recorded Sex Assigned at Female 03/19/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 Name: JANIS FIGUEREDO BILLIE Sands/Sex: 1965 Female Med Rec #: [id number] Physician: MEE TUCKER, DPM-POD Financial #: [id number] Pt. Type: O Room/Bed: / Admit/Disch: 12/19/20 06:32:00 - Institution: [facility] Main OR PostOp Case Times Entry 1 In PACU II 12/19/20 11:10:00 Ready for PACU II 12/19/20 12:11:00 Discharge Discharge from PACU 12/19/20 12:11:00 II Last Modified By: SIOMARA ALLEN RN 12/19/20 12:16:39 [facility] Main OR PostOp Case Times Audit 12/19/20 12:16:39 Elevator Constructor Hydraulic: [id number] Modifier: [id number] <+> 1 Ready for PACU II Discharge <+> 1 Discharge from PACU II Finalized By: SIOMARA ALLEN RN Document Signatures Signed By: SIOMARA ALLEN RN 12/19/20 12:[address] [facility] Conversion Complaint Evaluation Officer Cerner at 08/22/2022 3:51 PM CDT documented in this encounter Plan of Treatment Not on file documented as of this encounter Visit Diagnoses Not on filedocumented in this encounter Care Teams Gui Developer Relationship Specialty Start Date End Date Santosh Briones MD [address] [facility] [address] [place], [place] [id number] PCP - General General Internal Medicine 04/18/22 04/22/22 Santosh Briones MD [address] [facility] [address] [place], [place] [id number] PCP - General General Internal Medicine 04/23/22 Julius Cho MD [address] [place] [address] Referring Physician Internal Medicine 04/23/22 Lew Ross MD [address] [facility] [address] [place] [address] Cardiology 08/13/23 Karlos Islas PA-C [address] [facility], [facility] [address] [place] [address] Cardiology 11/23/23 documented as of this encounter
--- OUTSIDE RECORDS SUMMARY | 2024-11-28 12:36 | XMS_ITS | Encounter Summary ---
Author Organization [employer] ([place], [place], [place]) Address [address] [place] [address] Care Team Providers Care Grapple Operator Name Role Phone Santosh Briones MD Primary Care Provider [phone] Santosh Briones MD Primary Care Provider [phone] Julius Cho MD Unavailable Lew Ross MD Unavailable Karlos Islas PA-C Unavailable [phone] Encounter Details Date Type Department Care Team (Late st Contact Info) Description 07/22/2021 Transcribed Document [facility] [place] [address] [place] [address] ProviderAle MD [address] [place] [address] Social History Tobacco Use Types [...] Do you speak a language other than Montenegrin at [facility]? 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 Conversion Hotel Night Auditor Cerner at 08/22/2022 4:09 PM CDT documented in this encounter Plan of Treatment Not on file documented as of this encounter Visit Diagnoses Not on filedocumented in this encounter Care Teams Grapple Operator Relationship Specialty Start Date End Date Santosh Briones MD [address] [facility] [address] [place], [place] [id number] PCP - General General Internal Medicine 04/18/22 04/22/22 Santosh Briones MD [address] [facility] [address] [place], [place] [address] PCP - General General Internal Medicine 04/23/22 Julius Cho MD [address] [place] [address] Referring Physician Internal Medicine 04/23/22 Lew Ross MD [address] [facility] [address] [place] [address] Cardiology 08/13/23 Karlos Islas PA-C [address] [facility], [facility] [address] [place] [address] Cardiology 11/23/23 documented as of this encounter
--- OUTSIDE RECORDS SUMMARY | 2024-11-28 12:36 | XMS_ITS | Encounter Summary ---
Author Organization [employer] ([place], [place], [place], [place]) Address [address] [place] [address] Care Team Providers Care Drum Worker Name Role Phone Santosh Briones MD Primary Care Provider [phone] Snatosh Briones MD Primary Care Provider [phone] Julius Cho MD Unavailable Lew Ross MD Unavailable Karlos Islas PA-C Unavailable [phone] Encounter Details Date Type Department Care Team (Late st Contact Info) Description 07/23/2021 Transcribed Document [facility] [place] [address] [place] [address] ProviderAle MD [address] [place] [address] Social History Tobacco Use Types [...] speak a language other than Citizen Of [place] at [facility]? 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 hernia repair x2. Cholecystectomy (58361217). breast augmentation. Social History Social & Psychosocial [...] of motion, Normal strength. Integumentary: Warm, Dry, Nixon. Neurologic: Alert, Oriented. Psychiatric: Cooperative, Appropriate mood [...] Interface, [facility] Conversion Casing Sewer Cerner at 08/22/2022 3:47 PM CDT documented in this encounter Plan of Treatment Not on file documented as of this encounter Visit Diagnoses Not on filedocumented in this encounter Care Teams Drum Worker Relationship Specialty Start Date End Date Santosh Briones MD [address] [facility] [address] [place], [place] [address] PCP - General General Internal Medicine 04/18/22 04/22/22 Santosh Briones MD [address] [facility] [place] [address] [place] [address] PCP - General General Internal Medicine 04/23/22 Julius Cho MD [address] [place] [address] Referring Physician Internal Medicine 04/23/22 Lew Ross MD [address] [facility] [address] [place] [address] Cardiology 08/13/23 Karlos Islas PA-C [address] [facility], [facility] [address] [place] [address] Cardiology 11/23/23 documented as of this encounter
--- OUTSIDE RECORDS SUMMARY | 2024-11-28 12:36 | XMS_ITS | Encounter Summary ---
Author Organization [email or web address] ([place], [place], [place], [place]) Address [address] [place] [address] Care Team Providers Care Health Care Attorney Name Role Phone Santosh Briones MD Primary Care Provider [phone] Santosh Briones MD Primary Care Provider Julius Cho MD Unavailable Lew Ross MD Unavailable Karlos Islas PA-C Unavailable [phone] Encounter Details Date Type Department Care Team (Late st Contact Info) Description 07/22/2021 Transcribed Document [facility] [place] Family Medicine [address] [place] [address] ProviderAle MD [address] [place] [address] Social History Tobacco Use Types [...] Do you speak a language other than [place] Korean at [facility]? 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 Legal Sex Female 5:46 PM CDT Gender Identity Female 03/19/2022 10:49 AM PLANT BREEDER SCIENTIST Sexual Orientation Not on file COVID-19 Exposure [...] Source : Stated Height Entry Format : [place] Height, Feet : 5 ft(Converted to: 152 cm, 60 Inch) Height, Inches : 7 Inch(Converted to: 0 ft 7 Inch, 17.78 cm) Clinical Height : 170.18 cm Weight Source : Standing scale Weight Entry Format : [place] Clinical Dosing Weight : 126.82 kg Weight, Pounds : 279 lb Body Surface Area (BSA) : 2.33 m2 Body Mass Index : 43.8 kg/m2 (>HHI) [place] Body Weight : 61 kg Delisa Brothers RN - 07/22/2021 13:41 EDT Health Histories Smoking Status : Never (less than 100 in lifetime; none in last 30 days) Smokeless Tobacco Status : Never Implant/Device Type, Movie Editor and Model : breast implants IVC filter [...] Delisa Brothers RN - 07/22/2021 13:41 EDT [place] Suicide Severity Rating Scale (C-SSRS) CSSRS Past [...] RN - 07/22/2021 13:41 EDT Spiritual/Cultural Needs Buddhist Preference : Christianity Delisa Brothers RN - 07/22/2021 13:41 EDT [...] Ambulatory Legal Guardian : Mother Support Person/Patient Glaucoma Specialist : Yes Support Person/Pt Rep Name : Jose Ramon Lorenzana - Support Person/Pt Rep Contact Information : [phone] Want Family/Rep/Phys Notified of Admit : No Emergency Contact #1 : Lalitha Salomón Emergency Contact #1 Emergency Contact #1 Relationship : [id number] Emergency Contact #2 : Gopal Jimenez Emergency Contact #2 Emergency Contact #2 Relationship : Brother Information Obtained From : Patient Primary Language : North Korean Preferred Communication Mode : Verbal Communication Barrier : None Email Marketing Assistant Needed : No Delisa Brothers RN - [...] Mental Status : Oriented to own ability Sancehz Fall Risk Score : 20 SANCHEZ Fall Scale Risk Level : 0-24 Low Risk [place] Fall Interventions : Adequate lighting, Assistive devices [...] of the form. Electronically signed by Everardo, [facility] Conversion Utility Sales Representative Cerner at 08/22/2022 4:03 PM CDT documented in this encounter Plan of Treatment Not on file documented as of this encounter Visit Diagnoses Not on filedocumented in this encounter Care Teams Health Care Attorney Relationship Specialty Start Date End Date Santosh Briones MD [address] [place], [place] [address] PCP - General General Internal Medicine 04/18/22 04/22/22 Santosh Briones MD [address] [place], [place] [address] PCP - General General Internal Medicine 04/23/22 Julius Cho MD [address] [place] [address] Referring Physician Internal Medicine 04/23/22 Lew Ross MD [address] [facility] [address] [place] [address] Cardiology 08/13/23 Karlos Islas PA-C [address] [facility], [facility] [address] [place] [address] Cardiology 11/23/23 documented as of this encounter
--- OUTSIDE RECORDS SUMMARY | 2024-11-28 12:36 | XMS_ITS | Encounter Summary ---
Author Organization [employer] ([place], [place], [place], [place]) Address [address] [place] [address] Care Team Providers Care Baking Factory Worker Name Role Phone Santosh Briones MD Primary Care Provider [phone] Santosh Briones MD Primary Care Provider [phone] Julius Cho MD Unavailable Lew Ross MD Unavailable Karlos Islas PA-C Unavailable [phone] Encounter Details Date Type Department Care Team (Late st Contact Info) Description 07/19/2021 Transcribed Document [facility] [place] Family Medicine [address] [place] [address] ProviderAle MD [address] [place] [address] Social History Tobacco Use Types [...] speak a language other than Georgian at [facility]? 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 Take or apply rcra-jia-ywvpecf and prescription medicines only as told by [...] cannot use soap and water, use hand vpk teacher. ? Change your bandage as told [...] provider. Document Revised: 11/30/2018 Document Reviewed: 11/30/2018 ElseAdChoice Patient Education ? 2020 [employer] Inc. Pharmacology Moderate Conscious Sedation, Adult, Care [...] eating solid foods. General instructions ??? Take nlmq-khh-cebttmi and prescription medicines only as told by [...] provider. Document Revised: 08/17/2020 Document Reviewed: 03/15/2020 [employer] Patient Education ? 2020 [employer]. documented in this encounter Plan of Treatment Not on file documented as of this encounter Visit Diagnoses Not on filedocumented in this encounter Care Teams Baking Factory Worker Relationship Specialty Start Date End Date Santosh Briones MD [address] [facility] [address] [place], [place] [address] PCP - General General Internal Medicine 04/18/22 04/22/22 Santosh Briones MD [address] [facility] [place] [address] [place] [address] PCP - General General Internal Medicine 04/23/22 Julius Cho MD [address] [place] [address] Referring Physician Internal Medicine 04/23/22 Lew Ross MD [address] [facility] [address] [place] [address] Cardiology 08/13/23 Karlos Islas PA-C [address] [facility] [address] [place] [address] Cardiology 11/23/23 documented as of this encounter
--- OUTSIDE RECORDS SUMMARY | 2024-11-28 12:36 | XMS_ITS | Clinical Summary ---
Author Organization [facility] Address [address] [place] [address] Care Team Providers Care Mobile Product Manager Name Role Phone Santosh Briones MD Primary Care Provider [phone] Social History Tobacco Use Types Packs/Day Years [...] 2013 UKY-Zoster Vaccines (1 of 2) 2013 BDO-DIBLP-07 Vaccine (5 - season) 2024 10/29/2021, 02/01/2021, [...] to complete this topic Insurance Care Teams Mobile Product Manager Relationship Specialty Start Date End Date Santosh Briones MD [address] [place] [address] PCP - General 12/31/21
--- OUTSIDE RECORDS SUMMARY | 2024-11-28 12:36 | XMS_ITS | Encounter Summary ---
Author Organization [employer] ([place], [place], [place], [place]) Address [address] [place] [address] Care Team Providers Care Small Battery Plate Assembler Name Role Phone Santosh Briones MD Primary Care Provider [phone] Santosh Briones MD Primary Care Provider [phone] Julius Cho MD Unavailable Lew Ross MD Unavailable Karlos Islas PA-C Unavailable [phone] Encounter Details Date Type Department Care Team (Late st Contact Info) Description 07/22/2021 Transcribed Document [facility] [place] Family Medicine [address] [place] [address] ProviderAle MD [address] [place] [address] Social History Tobacco Use Types [...] Do you speak a language other than German at [facility]? No 08/17/2023 Do you want [...] Sex Assigned at Female 03/19/2022 10:49 AM SR. MANAGER Legal Sex Female 5:46 PM CDT Gender Identity Female 03/19/2022 10:49 AM SR. MANAGER Sexual Orientation Not on file COVID-19 [...] eating solid foods. General instructions ??? Take zhue-knb-gjxqmel and prescription medicines only as told by [...] provider. Document Revised: 08/17/2020 Document Reviewed: 03/15/2020 Candid io Patient Education ? 2020 C[employer] Inc. Procedures Endovenous Ablation Endovenous ablation is [...] including vitamins, herbs, eye drops, creams, and yyfy-bwc-rtmqeuq medicines. ??? Any problems you or family [...] tells you to take them. ??? Taking akzk-sye-riupjii medicines, vitamins, herbs, and supplements. Eating and [...] provider. Document Revised: 12/29/2018 Document Reviewed: 12/29/2018 Candid io Patient Education ? 2020 [employer] Inc. Endovenous Ablation, Care After This sheet [...] and water are not available, use hand high school drafting teacher. ? Change your dressing as told by [...] health care provider. General instructions ??? Take ejnl-muj-majlxud and prescription medicines only as told by [...] provider. Document Revised: 12/29/2018 Document Reviewed: 12/29/2018 ElseMashery Patient Education ? 2020 [employer]. documented in this encounter Plan of Treatment Not on file documented as of this encounter Visit Diagnoses Not on filedocumented in this encounter Care Teams Small Battery Plate Assembler Relationship Specialty Start Date End Date Santosh Briones MD [address] [facility] [address] [place], [place] [id number] PCP - General General Internal Medicine 04/18/22 04/22/22 Snatosh Briones MD [address] [facility] [place] [address] PCP - General General Internal Medicine 04/23/22 Julius Cho MD [address] [place] [address] Referring Physician Internal Medicine 04/23/22 Lew Ross MD [address] [facility] [address] [place] [address] Cardiology 08/13/23 Karlos Islas PA-C [address] [place] [address] Cardiology 11/23/23 documented as of this encounter
--- OUTSIDE RECORDS SUMMARY | 2024-11-28 12:36 | XMS_ITS | Encounter Summary ---
Author Organization [employer] ([place], [place], [place], [place]) Address [address] [place] [address] Care Team Providers Care Director Advertising Name Role Phone Santosh Santos MD Primary Care Provider [phone] Santosh Santos MD Primary Care Provider [phone] Julius Cho MD Unavailable Nader Wu MD Unavailable Karlos Islas PA-C Unavailable [phone] Encounter Details Date Type Department Care Team (Late st Contact Info) Description 07/22/2021 Transcribed Document [facility] [place] [address] [place] [address] ProviderAle MD [address] [place] [address] Social History Tobacco Use Types [...] Do you speak a language other than Afghan at [facility]? 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 No / Unsure 07/17/2022 7:53 AM EDT documented as of this encounter Miscellaneous Notes * Cerner Conversion Note - Historical Provider, - 07/22/2021 4:35 PM CDT [facility] [address] [place] [address] JANIS FIGUEREDO :1965 Visit Time:07/22/2021 Your Visit [...] follow-up appointments as previously scheduled. Where: [address] [facility] [address] [place] [address] [facility] (1) Medications What How Much When [...] including vitamins, herbs, eye drops, creams, and fgsm-fcg-hjiwrae medicines. ??? Any problems you or family [...] tells you to take them. ??? Taking fqdl-was-skoopta medicines, vitamins, herbs, and supplements. Eating and [...] provider. Document Revised: 12/29/2018 Document Reviewed: 12/29/2018 ElseTabl Media Patient Education ?? 2020 [employer] Inc. Endovenous Ablation, Care After This sheet [...] and water are not available, use hand principal strategist. ? Change your dressing as told by [...] health care provider. General instructions ??? Take emao-jxt-lvytkbw and prescription medicines only as told by [...] provider. Document Revised: 12/29/2018 Document Reviewed: 12/29/2018 ElseTabl Media Patient Education ?? 202 [employer] Moderate Conscious Sedation, Adult, Care After [...] eating solid foods. General instructions ??? Take xjac-ccd-ktqymla and prescription medicines only as told by [...] provider. Document Revised: 08/17/2020 Document Reviewed: 03/15/2020 ElseTabl Media Patient Education ?? 2020 [employer] Inc. Emergency Awareness and Preventative Care STROKE [...] Assistance with quitting is available by contacting 5-904-[facility]HN-NOW. This is a free resource providing counseling, [...] was given the opportunity to ask questions. Patient/Global Sales Executive Name: Patient/Global Sales Executive Signature: Relationship to Patient: Clinician/Hospital Global Sales Executive Signature: Date: documented in this encounter Plan of Treatment Not on file documented as of this encounter Visit Diagnoses Not on filedocumented in this encounter Care Teams Director Advertising Relationship Specialty Start Date End Date Santosh Santos MD [address] [facility] [address] [place], [place] [id number] PCP - General General Internal Medicine 04/18/22 04/22/22 Santosh Santos MD [address] [facility] [address] [place], [place] [address] PCP - General General Internal Medicine 04/23/22 Julius Cho MD [address] [place] [address] Referring Physician Internal Medicine 04/23/22 Nader Wu MD [address] [facility] [address] [place] [address] Cardiology 08/13/23 Karlos Islas PA-C [address] [facility], [facility] [address] [place] [address] Cardiology 11/23/23 documented as of this encounter
== END 2024-11-28 23:59 | disposition home or self-care (01) ==
LOC: RAD 12:33
PROVIDERS: PCP Nurse Practitioner Family; Visit Provider Nurse Practitioner Family
DX: M16.0 Bilateral primary osteoarthritis of hip (principal)
CPT/HCPCS: 73502

== ENCOUNTER 2024-12-06 08:31 | Outpatient (CLI) | payer MEDICARE, SELFPAY ==
--- OUTSIDE RECORDS SUMMARY | 2024-12-06 08:33 | XMS_ITS | Encounter Summary ---
Author Organization [employer] ([place], [place], [place], [place]) Address [address] [place] [address] Care Team Providers Care Nursing Program Coordinator Name Role Phone Santosh Briones MD Primary Care Provider [phone] Santosh Briones MD Primary Care Provider [phone] Julius Cho MD Unavailable Lew Ross MD Unavailable Karlos Islas PA-C Unavailable [phone] Encounter Details Date Type Department Care Team (Late st Contact Info) Description 07/25/2021 Transcribed Document [facility] [place] Family Medicine [address] [place] [address] ProviderAle MD [address] [place] [address] Social History Tobacco Use Types [...] Do you speak a language other than Sudanese at [facility]? 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 FIELDER Legal Sex Female 5:46 PM CDT Gender Identity Female 03/19/2022 10:49 AM ORE FIELDER Sexual Orientation Not on file COVID-19 Exposure [...] - 07/25/2021 15:59 EDT Electronically signed by [facility] Conversion Welding Rod Coater Cerner at 08/22/2022 4:06 PM CDT documented in this encounter Plan of Treatment Not on file documented as of this encounter Visit Diagnoses Not on filedocumented in this encounter Care Teams Nursing Program Coordinator Relationship Specialty Start Date End Date Santosh Briones MD [address] [facility] [address] [place], [place] [id number] PCP - General General Internal Medicine 04/18/22 04/22/22 Santosh Briones MD [address] [facility] [address] [place], [place] [id number] PCP - General General Internal Medicine 04/23/22 Julius Cho MD [address] [place] [address] Referring Physician Internal Medicine 04/23/22 Lew Ross MD [address] [facility] [address] [place] [address] Cardiology 08/13/23 Karlos Islas PA-C [address] [place] [address] Cardiology 11/23/23 documented as of this encounter
--- OUTSIDE RECORDS SUMMARY | 2024-12-06 08:33 | XMS_ITS | Encounter Summary ---
Author Organization [employer] ([place], [place], [place], [place]) Address [address] [place] [address] Care Team Providers Care Guide Travel Name Role Phone Santosh Briones MD Primary Care Provider [phone] Santosh Briones MD Primary Care Provider [phone] Julius Cho MD Unavailable Lew Ross MD Unavailable Karlos Islas PA-C Unavailable [phone] Encounter Details Date Type Department Care Team (Late st Contact Info) Description 07/25/2021 Transcribed Document [facility] [place] Family Medicine [address] [place] [address] ProviderAle MD [address] [place] [address] Social History Tobacco Use Types [...] a language other than Solomon Islander at [facility]? No 08/17/2023 Do you want help [...] Sex Assigned at Female 03/19/2022 10:49 AM BALLISTICIAN Legal Sex Female 5:46 PM CDT Gender Identity Female 03/19/2022 10:49 AM BALLISTICIAN Sexual Orientation Not on file COVID-19 Exposure [...] Source : Stated Height Entry Format : [place]onda Height, Feet : 5 ft(Converted to: 152 cm, 60 Inch) Height, Inches : 7 Inch(Converted to: 0 ft 7 Inch, 17.78 cm) Clinical Height : 170.18 cm Weight Source : Standing scale Weight Entry Format : Ronda Clinical Dosing Weight : 126.82 kg Weight, Pounds : 279 lb Body Surface Area (BSA) : 2.33 m2 Body Mass Index : 43.8 kg/m2 (>HHI) [place] Body Weight : 61 kg Archana Teague RN - 07/25/2021 12:16 EDT documented in this encounter Plan of Treatment Not on file documented as of this encounter Visit Diagnoses Not on filedocumented in this encounter Care Teams Guide Travel Relationship Specialty Start Date End Date Santosh Briones MD [address] [facility] [address] [place], [place] [address] PCP - General General Internal Medicine 04/18/22 04/22/22 Santosh Briones MD [address] [facility] [address] [place], [place] [address] PCP - General General Internal Medicine 04/23/22 Julius Cho MD [address] [place] [address] Referring Physician Internal Medicine 04/23/22 Lew Ross MD [address] [facility] [address] [place] [address] Cardiology 08/13/23 Karlos Islas PA-C [address] [place] [address] Cardiology 11/23/23 documented as of this encounter
--- OUTSIDE RECORDS SUMMARY | 2024-12-06 08:33 | XMS_ITS | Encounter Summary ---
Author Organization [employer] ([place], [place], [place], [place]) Address [address] [place] [address] Care Team Providers Care Associate Sales Name Role Phone Santosh Briones MD Primary Care Provider [phone] Santosh Briones MD Primary Care Provider [phone] Julius Cho MD Unavailable Lew Ross MD Unavailable Karlos Islas PA-C Unavailable [phone] Encounter Details Date Type Department Care Team (Late st Contact Info) Description 08/02/2021 Transcribed Document [facility] [place] Medicine [address] [place] [address] ProviderAle MD [address] [place] [address] Social History Tobacco Use Types [...] Do you speak a language other than Liberian at [facility]? No 08/17/2023 Do you [...] Sex Assigned at Female 03/19/2022 10:49 AM TELEPHONE ASSEMBLER Legal Sex Female 5:46 PM CDT Gender Identity Female 03/19/2022 10:49 AM TELEPHONE ASSEMBLER Sexual Orientation Not on file COVID-19 [...] Physical performed by Dr Hackett Lin on 76-72-89 has been reviewed, patient was examined, and no change has occurred since the History and Physical was completed. OR UPDATE: The History and Physical performed by on has been reviewed and patient examined. The only significant change(s) in the patient's history or condition since the History and Physical was completed are indicated below: Significant Changes: Electronically signed by Interface, [facility] Conversion Cork Painter And Grader Cerner at 08/22/2022 3:57 PM CDT documented in this encounter Plan of Treatment Not on file documented as of this encounter Visit Diagnoses Not on filedocumented in this encounter Care Teams Associate Sales Relationship Specialty Start Date End Date Santosh Briones MD [address] [facility] [place] [address] PCP - General General Internal Medicine 04/18/22 04/22/22 Santosh Briones MD [address] [facility] [place] [address] PCP - General General Internal Medicine 04/23/22 Julius Cho MD [address] [place] [address] Referring Physician Internal Medicine 04/23/22 Lew Ross MD [address] [facility] [address] [place] [address] Cardiology 08/13/23 Karlos Islas PA-C [address] [place] [address], [facility] [address] [place] [address] Cardiology 11/23/23 documented as of this encounter
--- OUTSIDE RECORDS SUMMARY | 2024-12-06 08:33 | XMS_ITS | Encounter Summary ---
Author Organization [employer] ([place], [place], [place], [place]) Address [address] [place] [address] Care Team Providers Care Dip Stand Loader Name Role Phone Santosh Briones MD Primary Care Provider Santosh Briones MD Primary Care Provider [phone] Julius Cho MD Unavailable Lew Ross MD Unavailable Karlos Islas PA-C Unavailable [phone] Encounter Details Date Type Department Care Team (Late st Contact Info) Description 07/25/2021 Transcribed Document [facility] [place] [address] [place] [address] ProviderAle MD [address] [place] [address] Social History Tobacco Use Types [...] speak a language other than Rwandan at [facility]? No 08/17/2023 Do you want help [...] Sex Assigned at Female 03/19/2022 10:49 AM DISTRICT COMMERCIAL SUPERINTENDENT Legal Sex Female 5:46 PM CDT Gender Identity Female 03/19/2022 10:49 AM DISTRICT COMMERCIAL SUPERINTENDENT Sexual Orientation Not on file COVID-19 Exposure [...] eating solid foods. General instructions ??? Take cpge-zmo-bxexpjc and prescription medicines only as told by [...] provider. Document Revised: 08/17/2020 Document Reviewed: 03/15/2020 [employer] Patient Education ? 2020 [employer] Procedures Endovenous Ablation, Care After This [...] and water are not available, use hand vice president of recruiting. ? Change your dressing as told by [...] health care provider. General instructions ??? Take fkzp-vnf-mlzhssd and prescription medicines only as told by [...] provider. Document Revised: 12/29/2018 Document Reviewed: 12/29/2018 [facility] [employer] [facility] Patient Education ? 2020 [employer]. documented in this encounter Plan of Treatment Not on file documented as of this encounter Visit Diagnoses Not on filedocumented in this encounter Care Teams Dip Stand Loader Relationship Specialty Start Date End Date Santosh Briones MD [address] [facility] [place] [address] PCP - General General Internal Medicine 04/18/22 04/22/22 Santosh Briones MD 200 [facility] [place] [address] PCP - General General Internal Medicine 04/23/22 Julius Cho MD [address] [place] [address] Referring Physician Internal Medicine 04/23/22 Lew Ross MD [address] [facility] [address] [place] [address] Cardiology 08/13/23 Karlos Islas PA-C [address] [place] [address] Cardiology 11/23/23 documented as of this encounter
--- OUTSIDE RECORDS SUMMARY | 2024-12-06 08:34 | XMS_ITS | Encounter Summary ---
Author Organization [employer] ([place], [place], [place], [place]) Address [address] [place] [address] Care Team Providers Care Legend Maker Name Role Phone Santosh Santos MD Primary Care Provider [phone] Santosh Santos MD Primary Care Provider [phone] Julius Cho MD Unavailable Nader Wu MD Unavailable Karlos Islas PA-C Unavailable [phone] Encounter Details Date Type Department Care Team (Late st Contact Info) Description 07/25/2021 Transcribed Document [facility] [place] [address] [place] [address] ProviderAle MD [address] [place] [address] Social History Tobacco Use Types [...] speak a language other than [facility] at [facility]? No 08/17/2023 Do you want help [...] Sex Assigned at Female 03/19/2022 10:49 AM BACTERIOLOGY PROFESSOR Legal Sex Female 5:46 PM CDT Gender Identity Female 03/19/2022 10:49 AM BACTERIOLOGY PROFESSOR Sexual Orientation Not on file COVID-19 Exposure Response Date Recorded In the last 10 days, have yo u been in contact with someone who was confirmed or suspected to have Coronavirus/COVID-19? No / Unsure 07/17/2022 7:53 AM EDT documented as of this encounter Miscellaneous Notes * Cerner Conversion Note - Historical Provider, - 07/25/2021 4:01 PM CDT [facility] [address] [place], [place] [id number] JANIS FIGUEREDO :1965 Visit Time:07/25/2021 Your Visit [...] MD-CAR When Comments Follow-up as instructed Where: [address] [place] [address] [address] [place] [address]- Medications What How Much When Instructions Next [...] and water are not available, use hand home school coordinator. ? Change your dressing as told by [...] health care provider. General instructions ??? Take lnbp-eot-nakhrke and prescription medicines only as told by [...] provider. Document Revised: 12/29/2018 Document Reviewed: 12/29/2018 [employer] Patient Education ?? 2020 [employer]. Moderate Conscious Sedation, Adult, Care After [...] eating solid foods. General instructions ??? Take uesh-lgd-uzmwlgt and prescription medicines only as told by [...] provider. Document Revised: 08/17/2020 Document Reviewed: 03/15/2020 [employer] Patient Education ?? 2020 [employer]. Emergency Awareness and Preventative Care STROKE [...] Assistance with quitting is available by contacting [phone]-PGMW-NOW. This is a free resource providing counseling, [...] was given the opportunity to ask questions. Patient/Project Management Professor Name: Patient/Project Management Professor Signature: Relationship to Patient: Clinician/Hospital Project Management Professor Signature: Date: documented in this encounter Plan of Treatment Not on file documented as of this encounter Visit Diagnoses Not on filedocumented in this encounter Care Teams Legend Maker Relationship Specialty Start Date End Date Santosh Santos MD [facility] [address] [place], [place] [id number] PCP - General General Internal Medicine 04/18/22 04/22/22 Santosh Santos MD [address] [facility] [place] [address] PCP - General General Internal Medicine 04/23/22 Julius Cho MD [address] [place] [address] Referring Physician Internal Medicine 04/23/22 Nader Wu MD [address] [facility] [address] [place] [address] Cardiology 08/13/23 Karlos Islas PA-C [address] [place] [address] Cardiology 11/23/23 documented as of this encounter
--- OUTSIDE RECORDS SUMMARY | 2024-12-06 08:35 | XMS_ITS | Clinical Summary ---
Author Organization [facility] Address [address] [place] [address] Phone Care Team Providers Care Showplace Manager Name Role Phone Chris Nunn MD [ ] Conditions or Problems Problem Name Problem Code Onset Date Status Entry Date Provider Comment Standard Description Annotate Hx of pulmonary embolism 732023867 (SNOMED CT) 08/25 Resolved 08/25 Natalia Herron H/O: pulmonary embolus Morbid obesity due to excess calories E66.01 (ICD-10-CM ) 08/25 Active 08/25 Natalia Herron Morbid (severe) obesity due to excess calories Benign Essential Hypertension 29109111 (SNOMED CT) 08/25 Active 08/25 Natalia Herron Benign hypertension Candidiasis of vulva and vagina, acute B37.31 (ICD-10-CM ) 09/20 Active 09/20 Natalia Herron Acute candidiasis of vulva and vagina Yeast infection 9949961 (SNOMED CT) 09/20 Inactive 09/20 Chris Nunn MD Mycosis Scleroderma 08896534 (SNOMED CT) 08/25 Active 08/25 Dania Faulkner Systemic sclerosis Personal history of allergy Bactrim 874294526 (SNOMED CT) 08/25 Active 08/25 Dania Faulkner 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 current use of anticoagulan ts 672303617 (SNOMED CT) 08/25 Active 08/25 Dania Faulkner Drug therapy finding Hx of pulmonary embolism 772914323 (SNOMED CT) 08/25 Removed 08/25 Dania Faulkner H/O: pulmonary embolus Presence of left artificial ankle joint 947312859 (SNOMED CT) 08/25 Active 08/25 Dania Faulkner Prosthetic total arthroplasty of ankle Morbid obesity 131793762 (SNOMED CT) 08/25 Inactive 08/25 Dania Faulkner Morbid obesity CAD (coronary artery disease) 13567979 (SNOMED CT) 08/25 Active 08/25 Dania Faulkner Coronary arteriosclerosis Hypertension 48587152 (SNOMED CT) 08/25 Inactive 08/25 Dania Faulkner Hypertensive disorder Chronic ulcer of left ankle, skin layer only 776488744 (SNOMED CT) 08/25 Active 08/25 Dania Faulkner Chronic ulcer of ankle Cellulitis of left lower limb 649577314 (SNOMED CT) 08/20 Active 08/20 Dania Faulkner Cellulitis of leg, excluding foot Chronic osteomyeliti s, left ankle 736809261 (SNOMED CT) 08/20 Active 08/20 Dania Faulkner Chronic osteomyelitis of ankle and/or foot Medications Medication Instructions Start Date Stop Date Generic Name NDC Provider MINOCYCLINE HCL 100 MG TABS Take 1 tablet by mouth once a day minocycline 24418668616 Chris Nunn MD DIFLUCAN 200 MG TABS 1 tablet by mouth once a day as needed for yeast infection fluconazole 46023935336 Chris Nunn MD DOXYCYCLINE HYCLATE 100 MG CAPS 1 capsule by mouth once a day doxycycline hyclate 80360654239 Chris Nunn MD FOLIC ACID 400 MCG TABS Take 2 tablet by mouth once a day folic acid 53910859015 Margaret Bermudez ACETAMINOPHEN 500 MG TABS Take 1 tablet by mouth every six hours as needed acetaminophen 85694780236 Margaret Bermudez NATURAL VITAMIN D-3 125 MCG (5000 UT) TABS Take 1 tablet by mouth once a day cholecalciferol (vitamin d3) 51853199498 Margaret Bermudez ASPIRIN LOW DOSE 81 MG TBEC Take 1 tablet by mouth once a day aspirin 77662990593 Margaret Bermudez FUROSEMIDE 40 MG TABS Take 1 tablet by mouth once a day furosemide 23983562190 Margaret Bermudez apixaban (Eliquis) 5 mg Tab tablet Take 1 tablet by mouth twice a day Eliquis Margaret Bermudez PANTOPRAZOLE SODIUM 40 MG TBEC Take 1 tablet by mouth once a day pantoprazole 89680059481 Margaret Bermudez VITAMIN B-12 1000 MCG TABS Take 1 tablet by mouth once a day cyanocobalamin (vitamin b-12) 24581370823 Margaret Bermudez SACCHAROMYCES BOULARDII 250 MG CAPS Take 1 capsule (250 mg total) by mouth 2 (two) times daily for 7 days. saccharomyces boulardii 20374901630 QIE qieuser PANTOPRAZOLE SODIUM 40 MG TBEC Take 1 tablet (40 mg total) by mouth daily. pantoprazole 92615657436 QIE [employer]user FUROSEMIDE 40 MG TABS Take 1 tablet (40 mg total) by mouth daily. furosemide 00616633004 QIE [employer]ieuser FOLIC ACID 400 MCG TABS Take 2 tablets (800 mcg total) by mouth daily. folic acid 63151604310 QIE [employer]user VITAMIN B-12 1000 MCG TABS Take 1 tablet (1,000 mcg total) by mouth daily. cyanocobalamin (vitamin b-12) 16242456473 QIE [employer]user NATURAL VITAMIN D-3 125 MCG (5000 UT) TABS Take 1 tablet (5,000 Units total) by mouth daily. cholecalciferol (vitamin d3) 04182466803 QIE [employer]user ASPIRIN LOW DOSE 81 MG TBEC Take 1 tablet (81 mg total) by mouth daily. aspirin 20108990792 QIE qieuser apixaban (Eliquis) 5 mg Tab [...] down for the next 30 min.. alendronate 08670811197 QIE [employer]user ACETAMINOPHEN 500 MG TABS Take 1 tablet (500 mg total) by mouth every 6 (six) hours as needed for up to 10 days. acetaminophen 75286659235 QIE qieuser Cubicin RF 500 mg intravenous solution 500mg IV Q24hrs/ OPAT daptomycin 49307277913 Jasmin Proctor RN CEFTRIAXONE SODIUM 2 GM SOLR 2gm IV Q24hrs/ OPAT ceftriaxone 18227464105 Jasmin Proctor RN Medications Administered No information [...] Procedures Code Procedure Name Date Entry Date CPT-50701 CMP [id number] CBC with Differential 2023 CPT-57539 C- reactive protein CPT-24627 Sedimentation Rate (ESR) 202 08/10/07 CPT-coral Change [...]
--- OUTSIDE RECORDS SUMMARY | 2024-12-06 08:35 | XMS_ITS | Encounter Summary ---
Author Organization [employer] ([place], [place], [place], [place]) Address [address] [place] [address] Care Team Providers Care Cash Crop Farmer Name Role Phone Santosh Briones MD Primary Care Provider [phone] Santosh Briones MD Primary Care Provider [phone] Julius Cho MD Unavailable Lew Ross MD Unavailable Karlos Islas PA-C Unavailable [phone] Encounter Details Date Type Department Care Team (Late st Contact Info) Description 07/24/2021 Transcribed Document [facility] [place] [address] [place] [address] ProviderAle MD [address] [place] [address] Social History Tobacco Use Types [...] Do you speak a language other than [place] Verdean at [facility]? No 08/17/2023 Do you want help [...] Sex Assigned at Female 03/19/2022 10:49 AM ELECTRIC SERVICEMAN Legal Sex Female 5:46 PM CDT Gender Identity Female 03/19/2022 10:49 AM ELECTRIC SERVICEMAN Sexual Orientation Not on file COVID-19 Exposure [...] your health care provider and follow the nitric acid concentrator operator's instructions that come with the stockings. ??? [...] provider. Document Revised: 08/22/2020 Document Reviewed: 08/22/2020 [employer] Patient Education ? 2020 [employer]. Infectious Disease Wound Infection A wound [...] at home: Medicines ??? Take or apply qoea-bxs-hmdrndf and prescription medicines only as told by [...] cannot use soap and water, use hand senior scheduler. ? Change your bandage as told by [...] provider. Document Revised: 11/30/2018 Document Reviewed: 11/30/2018 [employer] Patient Education ? 2020 [employer] Pharmacology Moderate Conscious Sedation, Adult, Care [...] eating solid foods. General instructions ??? Take yayt-oop-rhieqqp and prescription medicines only as told by [...] Reviewed: 03/15/2020 Elsevier Patient Education ? 2020 [employer]. documented in this encounter Plan of Treatment Not on file documented as of this encounter Visit Diagnoses Not on filedocumented in this encounter Care Teams Cash Crop Farmer Relationship Specialty Start Date End Date Santosh Briones MD [address] [facility] [address] [place], [place] [id number] PCP - General General Internal Medicine 04/18/22 04/22/22 Santosh Briones MD [address] [facility] [place] [address] PCP - General General Internal Medicine 04/23/22 Julius Cho MD [address] [place] [address] Referring Physician Internal Medicine 04/23/22 Lew Ross MD [address] [facility] [address] [place] [address] Cardiology 08/13/23 Karlos Islas PA-C [address] [place] [address] Cardiology 11/23/23 documented as of this encounter
--- OUTSIDE RECORDS SUMMARY | 2024-12-06 08:35 | XMS_ITS | Encounter Summary ---
Author Organization [employer] ([place], [place], [place], [place]) Address [address] [place] [address] Care Team Providers Care Wax Pumper Name Role Phone Santosh Santos MD Primary Care Provider [phone] Santosh Santos MD Primary Care Provider [phone] Julius Cho MD Unavailable Nader Wu MD Unavailable Karlos Islas PA-C Unavailable [phone] Encounter Details Date Type Department Care Team (Late st Contact Info) Description 07/24/2021 Transcribed Document [facility] [place] [address] [place] [address] ProviderAle MD [address] [place] [address] Social History Tobacco Use Types [...] Do you speak a language other than [place]orese at [facility]? No 08/17/2023 Do [...] Sex Assigned at Female 03/19/2022 10:49 AM ELECTRICAL APPLIANCE MECHANIC Legal Sex Female 5:46 PM CDT Gender Identity Female 03/19/2022 10:49 AM ELECTRICAL APPLIANCE MECHANIC Sexual Orientation Not on file COVID-19 Exposure Response Date Recorded In the last 10 days, have yo u been in contact with someone who was confirmed or suspected to have Coronavirus/COVID-19? No / Unsure 07/17/2022 7:53 AM EDT documented as of this encounter Miscellaneous Notes * Cerner Conversion Note - Historical Provider, - 07/24/2021 4:25 PM CDT [facility] [address] [place], [place] [id number] JANIS FIGUEREDO :1965 Visit Time:07/24/2021 Your Visit [...] your health care provider and follow the tele rn's instructions that come with the stockings. ??? [...] provider. Document Revised: 08/22/2020 Document Reviewed: 08/22/2020 [employer] Patient Education ?? 2020 [employer]. Wound Infection A wound infection happens when [...] at home: Medicines ??? Take or apply sdmu-dxk-wvujhgj and prescription medicines only as told by [...] cannot use soap and water, use hand criminal researcher. ? Change your bandage as told by [...] provider. Document Revised: 11/30/2018 Document Reviewed: 11/30/2018 [employer] Patient Education ?? 2020 [employer] Moderate Conscious Sedation, Adult, Care After [...] eating solid foods. General instructions ??? Take zbnr-vvu-zxsjbcz and prescription medicines only as told by [...] provider. Document Revised: 08/17/2020 Document Reviewed: 03/15/2020 [employer] Patient Education ?? 2020 [employer] Emergency Awareness and Preventative Care STROKE [...] Assistance with quitting is available by contacting [phone]-AZLCNOW. This is a free resource providing counseling, [...] was given the opportunity to ask questions. Patient/Magneto Electrician Name: Patient/Magneto Electrician Signature: Relationship to Patient: Clinician/Hospital Magneto Electrician Signature: Date: Electronically signed by Everardo, [facility] Conversion Boat Cleaner Cerner at 08/22/2022 3:53 PM CDT documented in this encounter Plan of Treatment Not on file documented as of this encounter Visit Diagnoses Not on filedocumented in this encounter Care Teams Wax Pumper Relationship Specialty Start Date End Date Santosh Santos MD [address] [place], [place] [id number] PCP - General General Internal Medicine 04/18/22 04/22/22 Santosh Santos MD [address] [facility] [address] [place], [place] [id number] PCP - General General Internal Medicine 04/23/22 Julius Cho MD [address] [place] [address] Referring Physician Internal Medicine 04/23/22 Nader Wu MD [address] [facility] [address] [place] [address] Cardiology 08/13/23 Karlos Islas PA-C [address] [facility] [address] [place] [address] Cardiology 11/23/23 documented as of this encounter
--- OUTSIDE RECORDS SUMMARY | 2024-12-06 08:35 | XMS_ITS | Encounter Summary ---
Author Organization [employer] ([place], [place], [place], [place]) Address [address] [place] [address] Care Team Providers Care Boiler House Supervisor Name Role Phone Santosh Briones MD Primary Care Provider [phone] Santosh Briones MD Primary Care Provider Julius Cho MD Unavailable Lew Ross MD Unavailable Karlos Islas PA-C Unavailable [phone] Encounter Details Date Type Department Care Team (Late st Contact Info) Description 07/19/2021 Transcribed Document [facility] Family Medicine [address] [place] [address] ProviderAle MD [address] [place] [address] Social History Tobacco Use Types [...] Do you speak a language other than Kenyan at [facility]? No 08/17/2023 Do you [...] Source : Stated Height Entry Format : [place] Height, Feet : 5 ft(Converted to: 152 cm, 60 Inch) Height, Inches : 7 Inch(Converted to: 0 ft 7 Inch, 17.78 cm) Clinical Height : 170.18 cm Weight Source : Standing scale Weight Entry Format : [place] Clinical Dosing Weight : 127.27 kg Weight, Pounds : 280 lb Body Surface Area (BSA) : 2.33 m2 Body Mass Index : 43.9 kg/m2 (>HHI) [place] Body Weight : 61 kg FAISAL CISNEROS RN - 07/19/2021 6:45 EDT Health Histories Smoking Status : Never (less than 100 in lifetime; none in last 30 days) Smokeless Tobacco Status : Never Implant/Device Type, Program Admin and Model : breast implants IVC filter [...] FAISAL CISNEROS RN - 07/19/2021 6:45 EDT [place] Suicide Severity Rating Scale (C-SSRS) CSSRS Past [...] 07/19/2021 6:45 EDT General Info Support Person/Patient Process Coordinator : Yes Support Person/Pt Rep Name : Jose Ramon Lorenzana - Support Person/Pt Rep Contact Information : [phone] Want Family/Rep/Phys Notified of Admit : No Emergency Contact #1 : . Emergency Contact #1 Phone Number : . Emergency Contact #1 Relationship : . Emergency Contact #2 : . Emergency Contact #2 Phone Number : . Emergency Contact #2 Relationship : . Primary Language : Kenyan Communication Barrier : None Residential Program Coordinator Needed : No FAISAL CISNEROS RN - [...] Scale Risk Level : 25-45 Medium Risk [place] Fall Interventions : Adequate lighting, Assistive devices [...] - 07/19/2021 6:45 EDT Electronically signed by [facility], [facility] Conversion Hull Outfit Supervisor Cerner at 08/22/2022 3:45 PM CDT documented in this encounter Plan of Treatment Not on file documented as of this encounter Visit Diagnoses Not on filedocumented in this encounter Care Teams Boiler House Supervisor Relationship Specialty Start Date End Date Santsoh Briones MD [address] [place], [place] [id number] PCP - General General Internal Medicine 04/18/22 04/22/22 Santosh Briones MD [address] [place], [place] [id number] PCP - General General Internal Medicine 04/23/22 Julius Cho MD [address] [place] [address] Referring Physician Internal Medicine 04/23/22 Lew Ross MD [address] [facility] [address] [place] [address] Cardiology 08/13/23 Karlos Islas PA-C [address] [facility] [address] [place] [address] Cardiology 11/23/23 documented as of this encounter
--- OUTSIDE RECORDS SUMMARY | 2024-12-06 08:35 | XMS_ITS | Clinical Summary ---
Author Organization [employer] ([place], [place], [place], [place]) Address [address] [place] [address] Care Team Providers Care Violin Restorer Name Role Phone Santosh Briones MD Primary Care Provider [phone] Julius Cho MD Unavailable Lew Ross MD Unavailable Karlos Islas PA-C Unavailable [phone] Allergies Active Allergy Reactions Criticality Noted [...] speak a language other than [place]ian at [facility]? No 08/17/2023 Do you [...] Sex Assigned at Female 03/19/2022 10:49 AM COMMERCIAL INSTALLER Legal Sex Female 5:46 PM CDT Gender Identity Female 03/19/2022 10:49 AM COMMERCIAL INSTALLER Sexual Orientation Not on file Last Filed [...] Completed 01/28/2024 Medical Devices Implanted Type Area Boom Man Device Identifier Shelf Expiration Date Model / Serial / Lot Base Tib 18mm [id number] - [id number] Implanted:Qty : 1 on 04/23/2022 by Massimo Blake DPM at [facility] IMPLANTS Left: Ankle ARIAS MED GRP:ARIAS MED TECH 03/13/[id number] / / [id number] Stem Mid Tib 16mm [id number] - [id number] Implanted:Qty : 2 on 04/23/2022 by Massimo Blake, DPM at [facility] IMPLANTS Left: Ankle ARIAS MED GRP:ARIAS MED TECH 03/10/2030 / / [id number] Stem Top Tib 16mm [id number] - [id number] Implanted:Qty : 1 on 04/23/2022 by Massimo Blake, DPM at [facility] IMPLANTS Left: Ankle ARIAS MED GRP:ARIAS MED TECH 05/20/[id number] / / [id number] Cement Bone Smplx Tobra 40gm 6197-9-001 - [id number] Implanted:Qty : 3 on 04/23/2022 by Massimo Blake, DPM at [facility] IMPLANTS Left: Ankle GIUSEPPE:GIUSEPPE ORTHOPAEDICS 08/02/2023 6197-9-001 / / [id number] Tray Tib Sz4 L [id number] - [id number] Implanted:Qty : 1 on 04/23/2022 by Massimo Blake, DPM at [facility] IMPLANTS Left: Ankle ARIAS MED GRP:ARIAS MED TECH 02/20/[id number] / / [id number] Dome Inbone Talar Sulcus Sz 3 - [id number] Implanted:Qty : 1 on 04/23/2022 by Massimo Blake, DPM at [facility] IMPLANTS Left: Ankle ARIAS MED GRP:ARIAS MED TECH 10/31/20283 / / [id number] Insrt Crosslnk Poly Sz3 [id number] - [id number] Implanted:Qty : 1 on 04/23/2022 by Massimo Blake, DPM at [facility] IMPLANTS Left: Ankle ARIAS MED GRP:ARIAS MED TECH 02/17/[id number] / / [id number] Stem Talar 10mm [id number] - [id number] Implanted:Qty : 1 on 04/23/2022 by Massimo Blake, DPM at [facility] IMPLANTS Left: Ankle ARIAS MED GRP:ARIAS MED TECH 02/16/[id number] / / [id number] Bone Putty Stimulan [facility] 620-005 - [id number] Implanted:Qty : 1 on 08/18/2023 by Massimo Blake DPM at [facility] IMPLANTS Left: Ankle BIOCOMPOSITES 03/03/2026 620-005 / / [id number] Insurance BLUE CROSS/BLUE SHIELD Advance Directives For more information, please contact: [phone] * Full Code (Latest Code Status on [...] 5:35 PM 08/18/2023 5:58 PM Care Teams Violin Restorer Relationship Specialty Start Date End Date Santosh Briones MD [address] [facility] [place] [address] PCP - General General Internal Medicine 04/23/22 Julius Cho MD [address] [place] [address] Referring Physician Internal Medicine 04/23/22 Lew Ross MD [address] [facility] [address] [place] [address] Cardiology 08/13/23 Karlos Islas PA-C [address], [facility] [address] [place] [address] Cardiology 11/23/23
--- OUTSIDE RECORDS SUMMARY | 2024-12-06 08:35 | XMS_ITS | Encounter Summary ---
Author Organization [employer] ([place], [place], [place], [place]) Address [address] [place] [address] Care Team Providers Care Apartment Coordinator Name Role Phone Santosh Briones MD Primary Care Provider [phone] Santosh Briones MD Primary Care Provider [phone] Julius Cho MD Unavailable Lew Ross MD Unavailable Karlos Islas PA-C Unavailable [phone] Encounter Details Date Type Department Care Team (Late st Contact Info) Description 07/23/2021 Transcribed Document [facility] [place] Family Medicine [address] [place] [address] ProviderAle MD [address] [place] [address] Social History Tobacco Use Types [...] speak a language other than Venezuelan at [facility]? No 08/17/2023 [...] Sex Assigned at Female 03/19/2022 10:49 AM GM VIDEO Legal Sex Female 5:46 PM CDT Gender Identity Female 03/19/2022 10:49 AM GM VIDEO Sexual Orientation Not on file COVID-19 Exposure [...] Source : Stated Height Entry Format : [place] Height, Feet : 5 ft(Converted to: 152 cm, 60 Inch) Height, Inches : 7 Inch(Converted to: 0 ft 7 Inch, 17.78 cm) Clinical Height : 170.18 cm Weight Source : Standing scale Weight Entry Format : [place] Clinical Dosing Weight : 126.82 kg Weight, Pounds : 279 lb Body Surface Area (BSA) : 2.33 m2 Body Mass Index : 43.8 kg/m2 (>HHI) [place] Body Weight : 61 kg Lisa Prado RN - 07/23/2021 12:48 EDT Electronically signed by Everardo [facility] Conversion Injection Molding Machine Offbearer Cerner at 08/22/2022 4:02 PM CDT documented in this encounter Plan of Treatment Not on file documented as of this encounter Visit Diagnoses Not on filedocumented in this encounter Care Teams Apartment Coordinator Relationship Specialty Start Date End Date Santosh Briones MD [address] [facility] [address] [place], [place] [address] PCP - General General Internal Medicine 04/18/22 04/22/22 Santosh Briones MD [address] [facility] [address] [place], [place] [address] PCP - General General Internal Medicine 04/23/22 Julius Cho MD [address] [place] [address] Referring Physician Internal Medicine 04/23/22 Lew Ross MD [address] [facility] [address] [place] [address] Cardiology 08/13/23 Karlos Islas PA-C [address] [place] [address] Cardiology 11/23/23 documented as of this encounter
--- OUTSIDE RECORDS SUMMARY | 2024-12-06 08:35 | XMS_ITS | Encounter Summary ---
Author Organization [employer] ([place], [place], [place], [place]) Address [address] [place] [address] Care Team Providers Care Powertrain Engineer Name Role Phone Santosh Briones MD Primary Care Provider [phone] Santosh Briones MD Primary Care Provider [phone] Julius Cho MD Unavailable Lew Ross MD Unavailable Karlos Islas PA-C Unavailable [phone] Encounter Details Date Type Department Care Team (Late st Contact Info) Description 07/24/2021 Transcribed Document [facility] [place] Family Medicine [address] [place] [address] ProviderAle MD [address] [place] [address] Social History Tobacco Use Types [...] Do you speak a language other than Singaporean at [facility]? No 08/17/2023 Do you want help [...] Sex Assigned at Female 03/19/2022 10:49 AM SACK DEPARTMENT SUPERVISOR Legal Sex Female 5:46 PM CDT Gender Identity Female 03/19/2022 10:49 AM SACK DEPARTMENT SUPERVISOR Sexual Orientation Not on file COVID-19 [...] Source : Stated Height Entry Format : [place] Height, Feet : 5 ft(Converted to: 152 cm, 60 Inch) Height, Inches : 7 Inch(Converted to: 0 ft 7 Inch, 17.78 cm) Clinical Height : 170.18 cm Weight Source : Standing scale Weight Entry Format : [place] Clinical Dosing Weight : 126.82 kg Weight, Pounds : 279 lb Body Surface Area (BSA) : 2.33 m2 Body Mass Index : 43.8 kg/m2 (>HHI) [place] Body Weight : [address] RN - 07/24/2021 12:43 EDT Health Histories Smoking Status : Never (less than 100 in lifetime; none in last 30 days) Smokeless Tobacco Status : Never Implant/Device Type, Nurse Transplant and Model : breast implants IVC filter OUSMANE ALNE RN - 07/24/2021 12:43 EDT Social History [...] OUSMANE LANE RN - 07/24/2021 12:43 EDT [place] Suicide Severity Rating Scale (C-SSRS) CSSRS Past [...] 07/24/2021 12:43 EDT General Info Support Person/Patient Nut Sheller : Yes Support Person/Pt Rep Name : Jose Ramon Lorenzana - Support Person/Pt Rep Contact Information : [phone] Want Family/Rep/Phys Notified of Admit : No Emergency Contact #1 : Gopal Jimenez Emergency Contact #1 Emergency Contact #1 Relationship : Brother Emergency Contact #2 : . Emergency Contact #2 Phone Number : . Emergency Contact #2 Relationship : . Primary Language : Singaporean Preferred Communication Mode : Verbal Communication Barrier : None Digital Measurement Advisor Needed : No OUSMANE LANE RN - [...] Scale Risk Level : 0-24 Low Risk [place] Fall Interventions : Adequate lighting, Assistive devices [...] EDT Pain Scale Intensity : 0 OUSMANE LNAE RN - 07/24/2021 12:43 EDT Image 4 - Images currently included in the form version of this document have not been included in the text rendition version of the form. Electronically signed by Jeremy Mcgee Conversion Manager Enterprise Content Management Cerner at 08/22/2022 3:49 PM CDT documented in this encounter Plan of Treatment Not on file documented as of this encounter Visit Diagnoses Not on filedocumented in this encounter Care Teams Powertrain Engineer Relationship Specialty Start Date End Date Santosh Briones MD [address] [facility] [place] [address] PCP - General General Internal Medicine 04/18/22 04/22/22 Santosh Briones MD [address] [place] [address] [place] [address] PCP - General General Internal Medicine 04/23/22 Julius Cho MD [address] [place] [address] Referring Physician Internal Medicine 04/23/22 Lew Ross MD [address] [facility] [address] [place] [address] Cardiology 08/13/23 Karlos Islas PA-C [address] [place] [address] Cardiology 11/23/23 documented as of this encounter
--- OUTSIDE RECORDS SUMMARY | 2024-12-06 08:35 | XMS_ITS | Referral Summary ---
Author Organization [employer] ([place], [place], [place], [place]) Address [address] [place] [address] Care Team Providers Care Beam Worker Name Role Phone Santosh Briones MD Primary Care Provider [phone] Julius Cho MD Unavailable Lew Ross MD Unavailable Karlos Islas PA-C Unavailable [phone] Allergies Active Allergy Reactions Criticality Noted [...] Do you speak a language other than Taiwanese at [facility]? No 08/17/2023 Do [...] Sex Assigned at Female 03/19/2022 10:49 AM DEVELOPMENT REPRESENTATIVE Legal Sex Female 5:46 PM CDT Gender Identity Female 03/19/2022 10:49 AM DEVELOPMENT REPRESENTATIVE Sexual Orientation Not on file Last Filed [...] on file Medical Devices Implanted Type Area Ground Mixer Device Identifier Shelf Expiration Date Model / Serial / Lot Base Tib 18mm [id number] - [id number] Implanted:Qty : 1 on 04/23/2022 by Massimo Blake, DPM at [facility] IMPLANTS Left: Ankle ARIAS MED GRP:ARIAS MED TECH 03/13/[id number] / / [id number] Stem Mid Tib 16mm [id number] - [id number] Implanted:Qty : 2 on 04/23/2022 by Massimo Blake, DPM at [facility] IMPLANTS Left: Ankle ARIAS MED GRP:ARIAS MED TECH 03/10/[id number] / / [id number] Stem Top Tib 16mm [id number] - [id number] Implanted:Qty : 1 on 04/23/2022 by Massimo Blake, DPM at [facility] IMPLANTS Left: Ankle ARIAS MED GRP:ARIAS MED TECH 05/20/[id number] / / [id number] Cement Bone Smplx Tobra 40gm 6197-9-001 - [id number] Implanted:Qty : 3 on 04/23/2022 by Massimo Blake, DPM at [facility] IMPLANTS Left: Ankle GIUSEPPE:GIUSEPPE ORTHOPAEDICS 08/02/2023 6197-9-001 / / [id number] Tray Tib Sz4 L [id number] - [id number] Implanted:Qty : 1 on 04/23/2022 by Massimo Blake, DPM at [facility] IMPLANTS Left: Ankle ARIAS MED GRP:ARIAS MED TECH 02/20/[id number] / / [id number] Dome Inbone Talar Sulcus Sz 3 - [id number] Implanted:Qty : 1 on 04/23/2022 by Massimo Blake, DPM at [facility] IMPLANTS Left: Ankle ARIAS MED GRP:ARIAS MED TECH 10/31/2028 / / [id number] Insrt Crosslnk Poly Sz3 [id number] - [id number] Implanted:Qty : 1 on 04/23/2022 by Massimo Balke DPM at [facility] IMPLANTS Left: Ankle ARIAS MED GRP:ARIAS MED TECH 02/17/2030 [id number] / / [id number] Stem Talar 10mm [id number] - [id number] Implanted:Qty : 1 on 04/23/2022 by Massimo Blake DPM at [facility] IMPLANTS Left: Ankle ARIAS MED GRP:ARIAS MED TECH 02/16/[id number] / / [id number] Bone Putty Stimulan [facility] 620-005 - [id number] Implanted:Qty : 1 on 08/18/2023 by Massimo Blake DPM at [facility] IMPLANTS Left: Ankle BIOCOMPOSITES 03/03/2026 620-005 / / [id number] Insurance BLUE CROSS/BLUE SHIELD Advance Directives For more information, please contact: [phone] * Full Code (Latest Code Status on [...] 5:35 PM 08/18/2023 5:58 PM Care Teams Beam Worker Relationship Specialty Start Date End Date Santosh Briones MD [address] [place], [place] [address] PCP - General General Internal Medicine 04/23/22 Julius Cho MD [address] [place] [address] Referring Physician Internal Medicine 04/23/22 Lew Ross MD [address] [facility] [address] [place] [address] Cardiology 08/13/23 Karlos Islas PA-C [address] [place] [address] Cardiology 11/23/23
--- OUTSIDE RECORDS SUMMARY | 2024-12-06 08:35 | XMS_ITS | Encounter Summary ---
Author Organization [employer] ([place], [place], [place], [place]) Address [address] [place] [address] Care Team Providers Care Straight Knife Cutter Machine Name Role Phone Santosh Briones MD Primary Care Provider Santosh Briones MD Primary Care Provider [phone] Julius Cho MD Unavailable Lew Ross MD Unavailable Karlos Islas PA-C Unavailable [phone] Encounter Details Date Type Department Care Team (Late st Contact Info) Description 07/24/2021 Transcribed Document [facility] [place] Family Medicine [address] [place] [address] ProviderAle MD [address] [place] [address] Social History Tobacco Use Types [...] Do you speak a language other than Salvadorean at [facility]? No 08/17/2023 Do you want [...] Sex Assigned at Female 03/19/2022 10:49 AM GIN INSPECTOR Legal Sex Female 5:46 PM CDT Gender Identity Female 03/19/2022 10:49 AM GIN INSPECTOR Sexual Orientation Not on file COVID-19 [...] - 07/24/2021 13:18 EDT Electronically signed by [facility] Conversion Keysmith Cerner at 08/22/2022 3:57 PM CDT documented in this encounter Plan of Treatment Not on file documented as of this encounter Visit Diagnoses Not on filedocumented in this encounter Care Teams Straight Knife Cutter Machine Relationship Specialty Start Date End Date Santosh Briones MD [address] [facility] [address] [place], [place] [address] PCP - General General Internal Medicine 04/18/22 04/22/22 Santosh Briones MD [address] [facility] [address] [place], [place] [address] PCP - General General Internal Medicine 04/23/22 Julius Cho MD [address] [place] [address] Referring Physician Internal Medicine 04/23/22 Lew Ross MD [address] [facility] [address] [place] [address] Cardiology 08/13/23 Karlos Islas PA-C [address] [place] [address] Cardiology 11/23/23 documented as of this encounter
--- OUTSIDE RECORDS SUMMARY | 2024-12-06 08:35 | XMS_ITS | Encounter Summary ---
Author Organization [employer] ([place], [place], [place], [place]) Address [address] [place] [address] Care Team Providers Care Communications Assistant Name Role Phone Santosh Briones MD Primary Care Provider [phone] Santosh Briones MD Primary Care Provider [phone] Julius Cho MD Unavailable Lew Ross MD Unavailable Karlos Islas PA-C Unavailable [phone] Encounter Details Date Type Department Care Team (Late st Contact Info) Description 07/23/2021 Transcribed Document [facility] [place] [address] [place] [address] ProviderAle MD [address] [place] [address] Social History Tobacco Use Types [...] Do you speak a language other than Azerbaijani at [facility]? No 08/17/2023 Do [...] Sex Assigned at Female 03/19/2022 10:49 AM BRAILLE TEACHER Legal Sex Female 5:46 PM CDT Gender Identity Female 03/19/2022 10:49 AM BRAILLE TEACHER Sexual Orientation Not on file COVID-19 Exposure [...] Source : Stated Height Entry Format : [place] Height, Feet : 5 ft(Converted to: 152 cm, 60 Inch) Height, Inches : 7 Inch(Converted to: 0 ft 7 Inch, 17.78 cm) Clinical Height : 170.18 cm Weight Source : Standing scale Weight Entry Format : [place] Clinical Dosing Weight : 126.82 kg Weight, Pounds : 279 lb Body Surface Area (BSA) : 2.33 m2 Body Mass Index : 43.8 kg/m2 (>HHI) [place] Body Weight : 61 kg Lisa Prado RN - 07/23/2021 13:19 EDT Health Histories Smoking Status : Never (less than 100 in lifetime; none in last 30 days) Smokeless Tobacco Status : Never Implant/Device Type, Offshore Wind Operations Manager and Model : breast implants IVC filter Lisa Prado RN - 07/23/2021 13:19 EDT Social History (As Of: 07/23/2021 14:07:41 EDT) Tobacco: Never (less than 100 in lifetime) Smoking Status. Never Smokeless Tobacco Status. None Smokeless Tobacco Use History. Second Hand Smoke Exposure: Yes. (Last Updated: 12/14/2020 10:54:16 EDT by rTu Barkley Rn) Alcohol: Alcohol Use History Yes. [...] Lisa Prado RN - 07/23/2021 13:19 EDT [place] Suicide Severity Rating Scale (C-SSRS) CSSRS Past [...] 07/23/2021 13:19 EDT General Info Support Person/Patient Brick Grader : Yes Support Person/Pt Rep Name : Jose Ramon Lorenzana - Support Person/Pt Rep Contact Information : [phone] Want Family/Rep/Phys Notified of Admit : No Emergency Contact #1 : na Emergency Contact #1 Phone Number : na Emergency Contact #1 Relationship : na Emergency Contact #2 : na Emergency Contact #2 Phone Number : na Emergency Contact #2 Relationship : na Primary Language : Azerbaijani Preferred Communication Mode : Verbal Communication Barrier : None Outboard System Operator Needed : No Lisa Prado RN - [...] Scale Risk Level : 0-24 Low Risk [place] Fall Interventions : Adequate lighting, Assistive devices [...] filedocumented in this encounter Care Teams Communications Assistant Relationship Specialty Start Date End Date Santosh Briones MD [address] [facility] [address] [place], [place] [address] PCP - General General Internal Medicine 04/18/22 04/22/22 Santosh Briones MD [address] [place], [place] [address] PCP - General General Internal Medicine 04/23/22 Julius Cho MD [address] [place] [address] Referring Physician Internal Medicine 04/23/22 Lew Ross MD [address] [facility] [address] [place] [address] Cardiology 08/13/23 Karlos Islas PA-C [address] [facility] [place] [address] Cardiology 11/23/23 documented as of this encounter
--- OUTSIDE RECORDS SUMMARY | 2024-12-06 08:36 | XMS_ITS | Encounter Summary ---
Author Organization [employer] ([place], [place], [place], [place]) Address [address] [place] [address] Care Team Providers Care Steel Heater Name Role Phone Santosh Briones MD Primary Care Provider [phone] Santosh Briones MD Primary Care Provider [phone] Julius Cho MD Unavailable Lew Ross MD Unavailable Karlos Islas PA-C Unavailable [phone] Encounter Details Date Type Department Care Team (Late st Contact Info) Description 12/19/2020 Transcribed Document [facility] [place] Family Medicine [address] [place] [address] ProviderAle MD [address] [place] [address] Social History Tobacco Use Types Packs/Day Years Used Date Smoking Tobacco: Never Assessed Comments Unknown Sex and Gender Information Value Date Recorded Sex Assigned at Female 03/19/2022 10:49 AM PROCESSOR INSPECTOR Legal Sex Female 5:46 PM CDT Gender Identity Female 03/19/2022 10:49 AM PROCESSOR INSPECTOR Sexual Orientation Not on file documented as of this encounter Miscellaneous Notes * Cerner Conversion Note - Ale ProviderMD - 12/19/2020 3:48 PM CDT DATE OF PROCEDURE: 12/19/2020 1965 SURGEON: Massimo Blake DPM CONVEYOR WORKER: None. PREOPERATIVE DIAGNOSES: Right Achilles tendon tear; [...] nylon 2-0, Vicryl 2-0, Arthrex anchors x4. Newfane drain. Graft Info: We used a 2 [...] We will continue to follow this patient. /[id number] YONG Enciso/JALEEL / BMLizbet / MODL /[id number] documented in this encounter Plan of Treatment Not on file documented as of this encounter Visit Diagnoses Not on filedocumented in this encounter Care Teams Steel Heater Relationship Specialty Start Date End Date Santosh Briones MD [address] [place], [place] [address] PCP - General General Internal Medicine 04/18/22 04/22/22 Santosh Briones MD [address] [facility] [address] [place], [place] [address] PCP - General General Internal Medicine 04/23/22 Julius Cho MD [address] [address] Referring Physician Internal Medicine 04/23/22 Lew Ross MD [address] [facility] [address] [place] [address] Cardiology 08/13/23 Karlos Islas PA-C [address] [facility] [address] [place] [address] Cardiology 11/23/23 documented as of this encounter
--- OUTSIDE RECORDS SUMMARY | 2024-12-06 08:36 | XMS_ITS | Encounter Summary ---
Author Organization [employer] ([place], [place], [place], [place]) Address [address] [place] [address] Care Team Providers Care Ceo And Founder Name Role Phone Santosh Briones MD Primary Care Provider [phone] Santosh Briones MD Primary Care Provider [phone] Julius Cho MD Unavailable Lew Ross MD Unavailable Karlos Islas PA-C Unavailable [phone] Encounter Details Date Type Department Care Team (Late st Contact Info) Description 12/19/2020 Transcribed Document [facility] [place] Family Medicine Count [facility] [place] [address] Ale Johnson MD [address] [place] [address] Social History Tobacco Use Types Packs/Day Years Used Date Smoking Tobacco: Never Assessed Comments Unknown Sex and Gender Information Value Date Recorded Sex Assigned at Female 03/19/2022 10:49 AM BACK PANEL PADDER Legal Sex Female 5:46 PM CDT Gender Identity Female 03/19/2022 10:49 AM BACK PANEL PADDER Sexual Orientation Not on file documented as of this encounter Miscellaneous Notes * Cerner Conversion Note - lAe Johnson MD - 12/19/2020 11:47 AM CDT [...] activities are safe for you. ??? Take [id number] and prescription medicines only as told by [...] provider. Document Revised: 04/23/2018 Document Reviewed: 12/04/2017 [employer] Patient Education ? 2020 [employer] Electronically signed by Jeremy Mcgee Conversion Telegraphic Typewriter Operator Cerner at 08/22/2022 4:02 PM CDT documented in this encounter Plan of Treatment Not on file documented as of this encounter Visit Diagnoses Not on filedocumented in this encounter Care Teams Ceo And Founder Relationship Specialty Start Date End Date Santosh Briones MD [address] [facility] [place] [address] PCP - General General Internal Medicine 04/18/22 04/22/22 Santosh Briones MD [address] [facility] [place] [address] PCP - General General Internal Medicine 04/23/22 Julius Cho MD [address] [place] [address] Referring Physician Internal Medicine 04/23/22 Lew Ross MD [address] [facility] [address] [place] [address] Cardiology 08/13/23 Karlos Islas PA-C [address] [place] [address] [address] [place] [address] Cardiology 11/23/23 documented as of this encounter
--- OUTSIDE RECORDS SUMMARY | 2024-12-06 08:36 | XMS_ITS | Encounter Summary ---
Author Organization [employer] ([place], [place], [place], [place]) Address [address] [place] [address] Care Team Providers Care Wrecker Driver Name Role Phone Santosh Briones MD Primary Care Provider [phone] Santosh Briones MD Primary Care Provider [phone] Julius Cho MD Unavailable Lew Ross MD Unavailable Karlos Islas PA-C Unavailable [phone] Encounter Details Date Type Department Care Team (Late st Contact Info) Description 12/19/2020 Transcribed Document [facility] Family [place] [facility] [place] [address] ProviderAle MD [address] [place] [address] Social History Tobacco Use Types Packs/Day Years Used Date Smoking Tobacco: Never Assessed Comments Unknown Sex and Gender Information Value Date Recorded Sex Assigned at Female 03/19/2022 10:49 AM WOMEN'S SOCCER COACH Legal Sex Female 5:46 PM CDT Gender Identity Female 03/19/2022 10:49 AM WOMEN'S SOCCER COACH Sexual Orientation Not on file documented as of this encounter Miscellaneous Notes * Cerner Conversion Note - Ale ProviderMD - 12/19/2020 11:50 AM CDT [facility] [place] [address] JANIS FIGUEREDO :1965 Visit Time:12/19/2020 What [...] Comments Follow up Thursday as scheduled Where: [address] [place] [address] Medications What How Much When Instructions Next Dose acetaminophen-oxyCODONE (acetaminophen-oxyCODONE 325 mg-7.5 mg oral tablet) 1 Tablet(s) Oral Every 6 Hours as needed for for pain Pickup at [place] [address] apixaban (Eliquis 5 mg oral tablet) 1 Tablet(s) Oral Two Times A Day atorvastatin (atorvastatin 40 mg oral tablet) 1 Tablet(s) Oral Every Day cephalexin (Keflex 500 mg oral capsule) 1 Capsule(s) Oral Every 8 Hours Duration: 1 Day(s) Pickup at [place] [address] cyanocobalamin (Vitamin B12 1000 mcg oral tablet) [...] for as needed for nausea/vomiting Pickup at [place] [address] Pharmacy Information [place] [address]: [address] [place], [place] [id number] [phone] Take your medications faithfully. Do NOT skip [...] activities are safe for you. ??? Take eqlf-vyg-jgvjsqm and prescription medicines only as told by [...] provider. Document Revised: 04/23/2018 Document Reviewed: 12/04/2017 [employer] Patient Education ?? 2020 One Month. Emergency Awareness and Preventative Care STROKE is [...] Assistance with quitting is available by contacting 0-187-MTCF-NOW. This is a free resource providing counseling, [...] was given the opportunity to ask questions. Patient/Boxcar Weigher Name: Patient/Boxcar Weigher Signature: Relationship to Patient: Clinician/Hospital Boxcar Weigher Signature: Date: documented in this encounter Plan of Treatment Not on file documented as of this encounter Visit Diagnoses Not on filedocumented in this encounter Care Teams Wrecker Driver Relationship Specialty Start Date End Date Santosh Briones MD [address] [place] [address] [place] [address] PCP - General General Internal Medicine 04/18/22 04/22/22 Santosh Briones MD [address] [place] [address] [place] [address] PCP - General General Internal Medicine 04/23/22 Julius Cho MD [address] [place] [address] Referring Physician Internal Medicine 04/23/22 Lew Ross MD [address] [facility] [address] [place] [address] Cardiology 08/13/23 Karlos Islas PA-C [address] [facility] [address] [place] [address] Cardiology 11/23/23 documented as of this encounter
--- OUTSIDE RECORDS SUMMARY | 2024-12-06 08:36 | XMS_ITS | Encounter Summary ---
Author Organization [employer] ([place], [place], [place], [place]) Address [address] [place] [address] Care Team Providers Care Juvenile Counselor Name Role Phone Santosh Briones MD Primary Care Provider [phone] Santosh Briones MD Primary Care Provider [phone] Julius Cho MD Unavailable Lew Ross MD Unavailable Karlos Islas PA-C Unavailable [phone] Encounter Details Date Type Department Care Team (Late st Contact Info) Description 12/19/2020 Transcribed Document [facility] [place] [facility] [place] [address] Ale Johnson MD [address] [place] [address] Social History Tobacco Use Types Packs/Day Years Used Date Smoking Tobacco: Never Assessed Comments Unknown Sex and Gender Information Value Date Recorded Sex Assigned at Female 03/19/2022 10:49 AM 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 Name: JANIS FIGUEREDO BILLIE Sands/Sex: 1965 Female [facility] Rec #: [id number] Physician: MEE TUCKER, DPM-POD Financial #: [id number] Pt. Type: O Room/Bed: /9 Admit/Disch: 12/19/20 06:32:00 - 12/19/20 12:11:00 Institution: [facility] IntraOp Case Attendance Entry 1 Entry 2 Entry 3 Case Attendee MEE TUCEKR BOWEN, JON B, MD-YVETTE ROSEN APRN DPM-POD Role Performed Surgeon/Proceduralist, Anesthesiologist of [facility]/Nurse Strategic Planning Specialist First Record Time In 12/19/20 07:55:00 12/19/20 [...] Julienne Atkins Rn Poe, Kali, Letitia Reese, Hoseman Role Performed Supervisor Graphite, First Supervisor Graphite, Second Scrub, First Time In 12/19/20 07:55:00 [...] Case Attendee ROBERTO BELCHER RN Role Performed Supervisor Graphite, First Time In 12/19/20 09:45:00 Time Out 12/19/20 10:03:00 Procedure Achilles Tendon Repair(Right), Bone Spur Excision Other Attendee BREAK Superficial Wound Closed By: Last Modified By: Julienne Atkins Rn 12/19/20 10:28:51 [facility] IntraOp Case Attendance Audit 12/19/20 10:28:51 Calibration Engineer: [id number] Modifier: [id number] <+> Time Out 1 <*> Procedure [...] Tendon Repair(Right), Bone Spur Excision 12/19/20 10:03:51 Calibration Engineer: [id number] Modifier: [id number] <+> Time Out 7 <*> Procedure Achilles Tendon Repair(Right), Bone Spur Excision 12/19/20 09:47:32 Calibration Engineer: [id number] Modifier: [id number] 1 <*> Procedure Achilles Tendon Repair(Right), Bone [...] Procedure <+> 7 Other Attendee 12/19/20 07:58:46 Calibration Engineer: [id number] Modifier: [id number] <+> 6 Procedure [facility] IntraOp Case Times Entry 1 Patient In Room Time 12/19/20 07:55:00 Out Room Time 12/19/20 10:23:00 Anesthesia Start Time 12/19/20 07:55:00 Stop Time 12/19/20 10:23:00 Surgery / Procedure Times Start Time 12/19/20 08:35:00 Stop Time 12/19/20 10:16:00 Last Modified By: Julienne Atkins Rn 12/19/20 10:28:41 [facility] IntraOp Case Times Audit 12/19/20 10:28:41 Calibration Engineer: [id number] Modifier: [id number] <+> 1 Out Room Time <+> 1 Stop Time <+> 1 Stop Time 12/19/20 08:37:30 Calibration Engineer: [id number] Modifier: [id number] <+> 1 Start Time [facility] IntraOp Cautery Entry 1 ESU Identification Cautery Type Monopolar ESU ID Number [id number] ID Type Hospital Number Cautery Settings Cut [...] Modified By: Julienne Atkins Rn 12/19/20 07:59:56 [facility] IntraOp Communication Entry 1 Communication To Family/Significant other Communication By Domingo Conklin RN Date and Time 12/19/20 08:37:00 Last Modified By: Julienne Atkins Rn 12/19/20 08:37:40 [facility] IntraOp Counts Verification Entry 1 Procedure Achilles Tendon Repair(Right), Bone Spur Excision Count Info Count Type Sponge, Sharps Counts Verification Baseline/pre-procedure Sequence Count Results Not Applicable Counts Performed By Count Performed By Letitia Washington (Scrub) Hoseman Count Performed By Domingo Conklin RN (RN) Last Modified By: Julienne Atkins Rn 12/19/20 08:00:18 [facility] IntraOp Counts Final Entry 1 Procedure Achilles Tendon Repair(Right), Bone Spur Excision Final Count Info Count Type Sponge, Sharps Counts Verification Skin Closure/end of Sequence procedure Count Results Correct, surgeon notified Counts Performed By Count Performed By Letitia Washington (Scrub) Hoseman Count Performed By Julienne Atkins Rn (RN) Last Modified By: Julienne Atkins Rn 12/19/20 10:05:43 [facility] IntraOp Cultures and Spec Summary Entry 1 Cultrures and Specimens Specimen Ordered: Yes Test(s) Routine/Path-Lab Requested/Final Disposition Last Modified By: Julienne Atkins Rn 12/19/20 09:32:55 General Comments: A. RIGHT FOOT BONE [facility] IntraOp Delays Entry 1 Delay Reason Patient, other (document in comment) Duration 25 Minute(s) Comment PATIENT GETTING NERVE BLOCK Last Modified By: Julienne Atkins Rn 12/19/20 08:00:49 [facility] IntraOp Departure from OR Entry 1 Integumentary Assessment Integumentary WDL Assessment WDL Transfer/Handoff Transfer to PACU Phase I Handoff Method Bedside/Face to face, Phone call Post-op Transport Stretcher/Gurney Via Patient Transport YVETTE CEJA, Accompanied by Wilbert CLEVELAND Tracy R, Rn, Domingo Conklin RN Last Modified By: Julienne Atkins Rn 12/19/20 08:01:04 [facility] IntraOp Drains and Tubes Entry 1 Device Type [place] Size 1/4 Drain/Tube Activity Inserted Drain/Tube Suction [place] Drain/Tube Drainage Red Device Location RIGHT LOWER LEG Method of Drainage [place] Last Modified By: Julienne Atkins Rn 12/19/20 08:49:09 [facility] IntraOp Dressing and Packing Entry 1 Type Dressing Location RIGHT FOOT Wound Dressing Item 4x4's, Kerlix/Janie, Johnnie, Other Applied By MEE TUCKER, DPOswald-POD Other Comments SILVER DRESSING Last Modified By: Julienne Atkins Rn 12/19/20 10:05:02 [facility] IntraOp Dressing and Packing Audit 12/19/20 10:05:02 Calibration Engineer: [id number] Modifier: [id number] 1 <*> Wound Dressing Item 4x4's, Kerlix/Janie, Johnnie 1 <+> Applied By 1 <*> Other Comments ACTICOAT [facility] IntraOp Fire Risk Assessment Entry 1 [...] Modified By: Julienne Atkins Rn 12/19/20 08:01:48 [facility] IntraOp General Case Plating Inspector 1 Case Information OR OR 02 [facility] Case Level 1 Room Verified Yes Wound Class I - Clean Specialty Podiatry Anesthesia Type General ASA Class 3 Diagnosis Preop Diagnosis RIGHT ACHILLES INJURY Postop Same As Preop No Postop Diagnosis SEE MD NOTES Last Modified By: Julienne Atkins Rn 12/19/20 08:02:15 [facility] IntraOp Implant Log Entry 1 Entry 2 Entry 3 Type Tissue Implant Implant (Synthetic) Implant (Synthetic) (Biologic) Implant Log Implant Type Hardware Hardware Tissue Implant Type Tissue Implant IMP STRAVIX [id number] ARTHREX ANCHOR KT IB PLUS BC W/CC FT Identification [id number] Description Implant Quantity 1 2 1 Implant Site RIGHT ANKLE RIGHT FOOT RIGHT FOOT Implant Identification Model Number Implant [id number] Identification Serial Number Implant [id number] Identification Lot Number Implant [employer] ARTHREX Arthrex Identification Hand Hardener Name: Implant [id number] Identification Catalog Number Implant Size Implant Has an Yes Yes Yes Expiration Date Implant Expiration 04/13/23 08/01/22 07/01/22 Date Wasted Radioactive Material Time Implanted Tissue Implant Continue for Tissue Implant Documentation Tissue Identification Number Graft Prep Per Yes Hand Hardener Instructions: Tissue Preparation N/A Method: Reconstitution Solution: Reconstitution Solution Lot Number Reconstitution Solution Expiration Date: Thawing Solution Thawing Solution Lot Number Thawing Solution Expiration Date Preparation Materials, Other Preparation Materials, Other Lot Number Preparation Materials, Other Expiration Date MEE Ash, Prepared/Processed DPM-POD By Hand Hardener Yes Paperwork Completed Implant Type Comment Last Modified By: Julienne Atkins Rn Compton, Tracy R, Rn Compton, Tracy R, Rn 12/19/20 09:32:32 12/19/20 09:32:32 12/19/20 09:32:32 Entry 4 Type Implant (Synthetic) Implant Log Implant Type Tissue Implant Type Implant ARTHREX SUTURE TAPE REF Identification [id number] Description Implant Quantity 1 Implant Site OPSITE Implant Identification Model Number Implant Identification Serial Number Implant [id number] Identification Lot Number Implant Identification Hand Hardener Name: Implant Identification Catalog Number Implant Size Implant Has an Yes Expiration Date Implant Expiration 08/31/25 Date Wasted Radioactive Material Time Implanted Tissue Implant Continue for Tissue Implant Documentation Tissue Identification Number Graft Prep Per Hand Hardener Instructions: Tissue Preparation Method: Reconstitution Solution: Reconstitution Solution Lot Number Reconstitution Solution Expiration Date: Thawing Solution Thawing Solution Lot Number Thawing Solution Expiration Date Preparation Materials, Other Preparation Materials, Other Lot Number Preparation Materials, Other Expiration Date Tissue Prepared/Processed By Hand Hardener Paperwork Completed Implant Type Comment Last Modified By: Julienne Atkins Rn 12/19/20 10:03:35 [facility] IntraOp Implant Log Audit 12/19/20 10:03:35 Calibration Engineer: [id number] Modifier: [id number] <+> 4 Implant Identification Description <+> 4 Implant Identification Lot Number <+> 4 Implant Expiration Date <+> 4 Implant Site <+> 4 Implant Quantity <+> 4 Implant Has an Expiration Date <+> 4 Type [facility] IntraOp Intraoperative Assessment Entry 1 Handoff [...] IVs Arrival to OR Last Modified By: Julienen Atkins Rn 12/19/20 08:03:12 [facility] IntraOp Intraoperative Equipment Entry 1 Type Equipment Equipment Equipment Yumi Suction System ID Number [id number] Setting ON Intraop Monitoring Blood Pressure Non-Invasive BP Device Source Antiembolic Devices Scopes Photo/Video Documentation Last Modified By: Julienne Atkins Rn 12/19/20 08:03:54 [facility] IntraOp Medication Admin Entry 1 Medication/Irrigant LAILA IRR NACL 0.9PCT 2000ML [employer]-[id number] Time Administered 12/19/20 08:35:00 Route of IRRIGATION Administration Dose Administered By MEE TUCKER DPOswald-POD Procedure Irrigation Last Modified By: Julienne Atkins Rn 12/19/20 09:04:22 [facility] IntraOp Medication Admin Audit 12/19/20 09:04:22 Calibration Engineer: [id number] Modifier: [id number] 1 <*> Medication/Irrigant LAILA IRR NACL 0.9PCT 2000ML [employer]-[id number] 1 <+> Time Administered [facility] IntraOp Patient Positioning Entry 1 Procedure [...] Modified By: Julienne Atkins Rn 12/19/20 08:05:17 [facility] IntraOp Sign In Entry 1 Patient, [...] Modified By: Julienne Atkins Rn 12/19/20 08:05:29 [facility] IntraOp Sign Out Entry 1 RN [...] Modified By: Julienne Atkins Rn 12/19/20 10:28:48 [facility] IntraOp Sign Out Audit 12/19/20 10:28:48 Calibration Engineer: [id number] Modifier: [id number] <+> 1 RN Sign Out Signature Date/Time [facility] IntraOp Skin Prep Entry 1 Procedure Achilles Tendon Repair(Right), Bone Spur Excision Prescribed Yes Pre-Surgical Prep Completed Prep Area RIGHT FOOT AND LOWER LEG TO KNEE Intraop Prep Integumentary WDL Assessment WDL Prep Agents Chloraprep Prep by Julienne Atkins Rn Hair Removal Methods No hair removal performed Last Modified By: Julienne Atkins Rn 12/19/20 08:08:22 [facility] IntraOp Surgical Procedures Entry 1 Entry [...] Tracy R, Rn 12/19/20 10:28:50 12/19/20 10:28:50 [facility] IntraOp Surgical Procedures Audit 12/19/20 10:28:50 Calibration Engineer: [id number] Modifier: [id number] <+> 1 Stop <+> 2 Stop [facility] IntraOp Temp Regulation Devices Entry 1 Temp Regulation Temperature Forced Air Warming Regulation Device device, Warm blankets Temperature 948243 Regulation Device Serial/Unit Number Temperature Upper body Regulation Site Temperature Device on Setting Temperature YVETTE CEJA APRN Regulation Device Applied by Last Modified By: Julienne Atkins Rn 12/19/20 08:39:43 [facility] IntraOP Time Out Entry 1 Procedure [...] Modified By: Julienne Atkins Rn 12/19/20 08:38:12 [facility] IntraOp Tourniquet Entry 1 Type Pneumatic Serial/Unit Number [id number] Setting 300 mmHg Pheumatic Yes Tourniquet Checked Per Protocol Placement Thigh, right upper Skin Protection - Yes Padded Under Cuff Applied By Julienne Atkins Rn Removed By MEE TUCKER DPM-POD Times Start Time 12/19/20 08:34:00 Stop Time 12/19/20 10:15:00 Total Time 101 calculated manually (Mins) Last Modified By: Julienne Atkins Rn 12/19/20 10:16:00 [facility] IntraOp Tourniquet Audit 12/19/20 10:16:00 Calibration Engineer: [id number] Modifier: [id number] <+> 1 Total Time calculated manually (Mins) <+> 1 Stop Time Case Comments <None> Finalized By: KENDRA PROCTOR Document Signatures Signed By: Julienne Atkins Rn 12/19/20 10:28 KENDRA PROCTOR 12/20/20 12:08 KENDRA PROCTOR 12/21/20 10:05 Unfinalized History Date/Time Username Reason for Unfinalizing Freetext Reason for Unfinalizing 12/20/20 12:03 [email or web address] Correct Billing 12/21/20 10:05 CHEN Correct Billing Electronically signed by [facility], [facility] Conversion Shoe Stamper Cerner at 08/22/2022 3:52 PM CDT documented in this encounter Plan of Treatment Not on file documented as of this encounter Visit Diagnoses Not on filedocumented in this encounter Care Teams Juvenile Counselor Relationship Specialty Start Date End Date Santosh Briones MD [address] [place], [place] [id number] PCP - General General Internal Medicine 04/18/22 04/22/22 Santosh Briones MD [address] [place], [place] [address] PCP - General General Internal Medicine 04/23/22 Julius Cho MD [address] [place] [address] Referring Physician Internal Medicine 04/23/22 Lew Ross MD [address] [facility] [address] [place] [address] Cardiology 08/13/23 Karlos Islas PA-C [address] [facility] [address] [place] [id number] Cardiology 11/23/23 documented as of this encounter
--- OUTSIDE RECORDS SUMMARY | 2024-12-06 08:36 | XMS_ITS | Encounter Summary ---
Author Organization [employer] ([place], [place], [place], [place]) Address [address] [place] [address] Care Team Providers Care Taxation Inspector Name Role Phone Santosh Briones MD Primary Care Provider [phone] Santosh Briones MD Primary Care Provider [phone] Julius Cho MD Unavailable Lew Ross MD Unavailable Karlos Islas PA-C Unavailable [phone] Encounter Details Date Type Department Care Team (Late st Contact Info) Description 12/19/2020 Transcribed Document [facility] [place] [facility] [place] [address] Ale Johnson MD [address] [place] [address] Social History Tobacco Use Types Packs/Day Years Used Date Smoking Tobacco: Never Assessed Comments Unknown Sex and Gender Information Value Date Recorded Sex Assigned at Female 03/19/2022 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 Name: JANIS FIGUEREDO BILLIE Sands/Sex: 1965 Female Med Rec #: [id number] Physician: MEE TUCKER, DPM-POD Financial #: [id number] Pt. Type: O Room/Bed: / Admit/Disch: 12/19/20 06:32:00 - Institution: [facility] Main OR PostOp Case Times Entry 1 In PACU II 12/19/20 11:10:00 Ready for PACU II 12/19/20 12:11:00 Discharge Discharge from PACU 12/19/20 12:11:00 II Last Modified By: SIOMARA ALLEN RN 12/19/20 12:16:39 [facility] Main OR PostOp Case Times Audit 12/19/20 12:16:39 Trim Mechanic: [id number] Modifier: [id number] <+> 1 Ready for PACU II Discharge <+> 1 Discharge from PACU II Finalized By: SIOMARA ALLEN RN Document Signatures Signed By: SIOMARA ALLEN RN 12/19/20 12:16 Electronically signed by [facility] Conversion Violin Mechanic Cerner at 08/22/2022 3:51 PM CDT documented in this encounter Plan of Treatment Not on file documented as of this encounter Visit Diagnoses Not on filedocumented in this encounter Care Teams Taxation Inspector Relationship Specialty Start Date End Date Santosh Briones MD [address] [facility] [address] [place], [place] [address] PCP - General General Internal Medicine 04/18/22 04/22/22 Santosh Briones MD [address] [facility] [address] [place], [place] [address] PCP - General General Internal Medicine 04/23/22 Julius Cho MD [address] [place] [address] Referring Physician Internal Medicine 04/23/22 Lew Ross MD [address] [facility] [address] [place] [address] Cardiology 08/13/23 Karlos Islas PA-C [address] [facility] [address] [place] [address] Cardiology 11/23/23 documented as of this encounter
--- OUTSIDE RECORDS SUMMARY | 2024-12-06 08:36 | XMS_ITS | Encounter Summary ---
Author Organization [employer] ([place], [place], [place], [place]) Address [address] [place] [address] Care Team Providers Care Maintenance Aide Name Role Phone Santosh Briones MD Primary Care Provider [phone] Santosh Briones MD Primary Care Provider [phone] Julius Cho MD Unavailable Lew Ross MD Unavailable Karlos Islas PA-C Unavailable [phone] Encounter Details Date Type Department Care Team (Late st Contact Info) Description 12/19/2020 Transcribed Document [facility] Family Medicine [facility] [place] [address] Ale Johnson MD [address] [place] [address] Social History Tobacco Use Types Packs/Day Years Used Date Smoking Tobacco: Never Assessed Comments Unknown Sex and Gender Information Value Date Recorded Sex Assigned at Female 03/19/2022 10:49 AM 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 Name: JANSI FIGUEREDO BILLIE Sands/Sex: 1965 Female Med Rec #: [id number] Physician: MEE TUCKER, DPM-POD Financial #: [id number] Pt. Type: O Room/Bed: Admit/Disch: 12/19/20 06:32:00 - 12/19/20 12:11:00 Institution: [facility] Main OR PACU I Case Times Entry 1 In PACU I 12/19/20 10:25:00 Ready for PACU 12/19/20 11:05:00 Discharge Discharge from PACU 12/19/20 11:08:00 I Last Modified By: Sunshine Rowland RN-PATIENT CARE BEDSIDE NON-EXEMPT 12/19/20 11:55:39 [facility] Main OR PACU Acuity Entry 1 Start Time 12/19/20 11:05:00 Stop Time 12/19/20 11:08:00 Acuity Level [facility] PACU Acuity I Last Modified By: Letitia Dugan Nurse Design Inserter 12/21/20 20:53:32 [facility] Main OR PACU Acuity Audit 12/21/20 20:53:32 Cherry Picker Operator: [id number] Modifier: [id number] <*> Start Time 12/19/20 10:25:00 Finalized By: Letitia Dugan Nurse Wood Experimental Mechanic Signatures Signed By: Sunshine Rowland RN-PATIENT CARE BEDSIDE NON-EXEMPT 12/19/20 11:55 Letitia Dugan Nurse Design Inserter 12/21/20 20:53 Unfinalized History Date/Time Username Reason for Unfinalizing Freetext Reason for Unfinalizing 12/21/20 20:53 [id number] Correct Billing Electronically signed by [facility] Conversion Wax Pourer Cerner at 08/22/2022 3:52 PM CDT documented in this encounter Plan of Treatment Not on file documented as of this encounter Visit Diagnoses Not on filedocumented in this encounter Care Teams Maintenance Aide Relationship Specialty Start Date End Date Santosh Briones MD [address] [facility] [place] [address] PCP - General General Internal Medicine 04/18/22 04/22/22 Santosh Briones MD [address] [place] [address] PCP - General General Internal Medicine 04/23/22 Julius Cho MD [address] [place] [address] Referring Physician Internal Medicine 04/23/22 Lew Ross MD [address] [facility] [address] [place] [address] Cardiology 08/13/23 Karlos Islas PA-C [address] [facility] [[email or web address] [address] [place] [address] Cardiology 11/23/23 documented as of this encounter
--- OUTSIDE RECORDS SUMMARY | 2024-12-06 08:36 | XMS_ITS | Encounter Summary ---
Author Organization [employer] ([place], [place], [place], [place]) Address [address] [place] [address] Care Team Providers Care Product Development Assistant Name Role Phone Santosh Briones MD Primary Care Provider [phone] Santosh Briones MD Primary Care Provider [phone] Julius Cho MD Unavailable Lew Ross MD Unavailable Karlos Islas PA-C Unavailable [phone] Encounter Details Date Type Department Care Team (Late st Contact Info) Description 12/19/2020 Transcribed Document [facility] Family Medicine [facility] [place] [address] Ale Johnson MD [address] [place] [address] Social History Tobacco Use Types Packs/Day Years Used Date Smoking Tobacco: Never Assessed Comments Unknown Sex and Gender Information Value Date Recorded Sex Assigned at Female 03/19/2022 10:49 AM HIGH SCHOOL 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 Legal Sex Female 5:46 PM CDT Gender Identity Female 03/19/2022 10:49 AM HIGH SCHOOL LIBRARY 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 Sexual Orientation Not on file documented [...] - 12/19/2020 7:49 EDT Electronically signed by [facility] Conversion Meter And Regulator Shop Supervisor Cerner at 08/22/2022 3:50 PM CDT documented in this encounter Plan of Treatment Not on file documented as of this encounter Visit Diagnoses Not on filedocumented in this encounter Care Teams Product Development Assistant Relationship Specialty Start Date End Date Santosh Briones MD [address] [facility] [address] [place], [place] [id number] PCP - General General Internal Medicine 04/18/22 04/22/22 Santosh Briones MD [address] [facility] [address] [place], [place] [address] PCP - General General Internal Medicine 04/23/22 Julius Cho MD [address] [place] [address] Referring Physician Internal Medicine 04/23/22 Lew Ross MD [address] [facility] [address] [place] [address] Cardiology 08/13/23 Karlos Islas PA-C [address] [facility] [place] [address] Cardiology 11/23/23 documented as of this encounter
--- OUTSIDE RECORDS SUMMARY | 2024-12-06 08:37 | XMS_ITS | Encounter Summary ---
Author Organization [email or web address] ([place], [place], [place], [place]) Address [address] [place] [address] Care Team Providers Care Loan Workout Officer Name Role Phone Santosh Santos MD Primary Care Provider [phone] Santosh Santos MD Primary Care Provider [phone] Julius Cho MD Unavailable Nader Wu MD Unavailable Karlos Islas PA-C Unavailable [phone] Encounter Details Date Type Department Care Team (Late st Contact Info) Description 07/23/2021 Transcribed Document [facility] Family Medicine [address] [place] [address] ProviderAle MD [address] [place] [address] Social History Tobacco Use Types [...] Do you speak a language other than Kuwaiti at [facility]? No 08/17/2023 Do [...] Sex Assigned at Female 03/19/2022 10:49 AM SHEET ROCK SANDER Legal Sex Female 5:46 PM CDT Gender Identity Female 03/19/2022 10:49 AM SHEET ROCK SANDER Sexual Orientation Not on file COVID-19 Exposure Response Date Recorded In the last 10 days, have yo u been in contact with someone who was confirmed or suspected to have Coronavirus/COVID-19? No / Unsure 07/17/2022 7:53 AM EDT documented as of this encounter Miscellaneous Notes * Cerner Conversion Note - Historical Provider, - 07/23/2021 3:25 PM CDT [facility] [address] [place] [address] JANIS FIGUEREDO :1965 Visit Time:07/23/2021 Your Visit [...] instructed Bring your compression stockings. Where: [address] [facility] [address] [place] [address]- Business (1) Medications What How Much When [...] at home: Medicines ??? Take or apply dehr-qoy-mjbzzcb and prescription medicines only as told by [...] cannot use soap and water, use hand lag screwer. ? Change your bandage as told by [...] provider. Document Revised: 11/30/2018 Document Reviewed: 11/30/2018 [employer] Patient Education ?? 2021 [employer] Moderate Conscious Sedation, Adult, Care After [...] eating solid foods. General instructions ??? Take jrbt-ruc-katiads and prescription medicines only as told by [...] provider. Document Revised: 08/17/2020 Document Reviewed: 03/15/2020 [employer] Patient Education ?? 2020 [employer] Emergency Awareness and Preventative Care STROKE [...] Assistance with quitting is available by contacting 4-751-MKDJParadigm SolarNOW. This is a free resource providing counseling, [...] was given the opportunity to ask questions. Patient/Venetian Blind Installer Name: Patient/Venetian Blind Installer Signature: Relationship to Patient: Clinician/Hospital Venetian Blind Installer Signature: Date: Electronically signed by Everardo [facility] Conversion Pre Algebra Teacher Cerner at 08/22/2022 3:47 PM CDT documented in this encounter Plan of Treatment Not on file documented as of this encounter Visit Diagnoses Not on filedocumented in this encounter Care Teams Loan Workout Officer Relationship Specialty Start Date End Date Santosh Santos MD [address] [facility] [place] [address] PCP - General General Internal Medicine 04/18/22 04/22/22 Santosh Santos MD [address] [place] [address] PCP - General General Internal Medicine 04/23/22 Julius Cho MD [address] [place] [address] Referring Physician Internal Medicine 04/23/22 Nader Wu MD [address] [place] [address] [address] [place] [address] Cardiology 08/13/23 Karlos Islas PA-C [address] [facility] [address] [place] [address] Cardiology 11/23/23 documented as of this encounter
--- OUTSIDE RECORDS SUMMARY | 2024-12-06 08:37 | XMS_ITS | Encounter Summary ---
Author Organization [employer] ([place], [place], [place], [place]) Address [address] [place] [address] Care Team Providers Care Jet Engine Mechanic Name Role Phone Santosh Briones MD Primary Care Provider [phone] Santosh Briones MD Primary Care Provider [phone] Julius Cho MD Unavailable Lwe Ross MD Unavailable Karlos Islas PA-C Unavailable [phone] Encounter Details Date Type Department Care Team (Late st Contact Info) Description 07/23/2021 Transcribed Document [facility] [place] Family Medicine [address] [place] [address] ProviderAle MD [address] [place] [address] Social History Tobacco Use Types [...] Do you speak a language other than Somali at [facility]? No 08/17/2023 Do you want help with [...] Sex Assigned at Female 03/19/2022 10:49 AM GOVERNMENT TEACHER Legal Sex Female 5:46 PM CDT Gender Identity Female 03/19/2022 10:49 AM GOVERNMENT TEACHER Sexual Orientation Not on file COVID-19 [...] at home: Medicines ??? Take or apply tpgm-cjg-knkoyoj and prescription medicines only as told by [...] cannot use soap and water, use hand vending machine host/hostess. ? Change your bandage as told by [...] provider. Document Revised: 11/30/2018 Document Reviewed: 11/30/2018 [employer] Patient Education ? 2020 [employer]. Pharmacology Moderate Conscious Sedation, Adult, Care [...] eating solid foods. General instructions ??? Take rete-ywx-cdlftlo and prescription medicines only as told by [...] provider. Document Revised: 08/17/2020 Document Reviewed: 03/15/2020 [employer] Patient Education ? 2020 [employer]. documented in this encounter Plan of Treatment Not on file documented as of this encounter Visit Diagnoses Not on filedocumented in this encounter Care Teams Jet Engine Mechanic Relationship Specialty Start Date End Date Santosh Briones MD [address] [facility] [address] [place], [place] [id number] PCP - General General Internal Medicine 04/18/22 04/22/22 Santosh Briones MD [address] [facility] [place] [address] PCP - General General Internal Medicine 04/23/22 Julius Cho MD [address] [place] [address] Referring Physician Internal Medicine 04/23/22 Lew Ross MD [address] [facility] [address] [place] [address] Cardiology 08/13/23 Karlos Islas PA-C [address] [facility] [address] [place] [address] Cardiology 11/23/23 documented as of this encounter
--- OUTSIDE RECORDS SUMMARY | 2024-12-06 08:37 | XMS_ITS | CCD ---
Author Name Interface, [email or web address] Address [address] [place] [address] Oncology an d Hematology Address [address] [place] [address] Care Team Providers Care Sheeting Puller Name Role Phone Misbah STEWART, Fuentes Unavailable Unavailable Allergies and Adverse Reactions Reason for Visit Medications Problems Social History
--- OUTSIDE RECORDS SUMMARY | 2024-12-06 08:37 | XMS_ITS | Encounter Summary ---
Author Organization [employer] ([place], [place], [place], [place]) Address [address] [place] [address] Care Team Providers Care Joist Setter Name Role Phone Santosh Briones MD Primary Care Provider [phone] Santosh Briones MD Primary Care Provider [phone] Julius Cho MD Unavailable Lwe Ross MD Unavailable Karlos Islas PA-C Unavailable [phone] Encounter Details Date Type Department Care Team (Late st Contact Info) Description 07/23/2021 Transcribed Document [facility] Family Medicine [address] [place] [address] ProviderAle MD [address] [place] [address] Social History Tobacco Use Types [...] Do you speak a language other than Czech at [facility]? No 08/17/2023 Do [...] Assigned at Female 03/19/2022 10:49 AM BUSINESS MACHINES TEACHER Legal Sex Female 5:46 PM CDT Gender Identity Female 03/19/2022 10:49 AM BUSINESS MACHINES TEACHER Sexual Orientation Not on file COVID-19 [...] 07/23/2021 15:12 EDT Electronically signed by Everardo [facility] Conversion Boat Loader Cerner at 08/22/2022 3:53 PM CDT documented in this encounter Plan of Treatment Not on file documented as of this encounter Visit Diagnoses Not on filedocumented in this encounter Care Teams Joist Setter Relationship Specialty Start Date End Date Santosh Briones MD [address] [facility] [address] [place], [place] [address] PCP - General General Internal Medicine 04/18/22 04/22/22 Santosh Briones MD [address] [facility] [place] [address] PCP - General General Internal Medicine 04/23/22 Julius Cho MD [address] [place] [address] Referring Physician Internal Medicine 04/23/22 Lew Ross MD [address] [facility] [address] [place] [address] Cardiology 08/13/23 Karlos Islas PA-C [address] [place] [address] Cardiology 11/23/23 documented as of this encounter
--- OUTSIDE RECORDS SUMMARY | 2024-12-06 08:37 | XMS_ITS | Encounter Summary ---
Author Organization [employer] ([place], [place], [place], [place]) Address [address] [place] [address] Care Team Providers Care Green Jobs Trainer Name Role Phone Santosh Briones MD Primary Care Provider [phone] Santosh Briones MD Primary Care Provider [phone] Julius Cho MD Unavailable Lew Ross MD Unavailable Karlos Islas PA-C Unavailable [phone] Encounter Details Date Type Department Care Team (Late st Contact Info) Description 07/23/2021 Transcribed Document [facility] [place] [address] [place] [address] ProviderAle MD [address] [place] [address] Social History Tobacco Use Types [...] Do you speak a language other than Moz[place]ican at [facility]? No 08/17/2023 Do you want help with [...] Sex Assigned at Female 03/19/2022 10:49 AM MARBLE CEILING INSTALLER Legal Sex Female 5:46 PM CDT Gender Identity Female 03/19/2022 10:49 AM MARBLE CEILING INSTALLER Sexual Orientation Not on file COVID-19 Exposure [...] Mendez, RN-ROUNDING Basic Information PCP: Santosh Briones Awning Maker: Dr. 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 hernia repair x2. Cholecystectomy ([id number]). breast augmentation. Social History Social & Psychosocial [...] of motion, Normal strength. Integumentary: Warm, Dry, [place]. Neurologic: Alert, Oriented. Psychiatric: Cooperative, Appropriate mood [...] PLAN; RLE Varithena Electronically signed by Interface, [facility] Conversion Chip Separator Cerner at 08/22/2022 3:47 PM CDT documented in this encounter Plan of Treatment Not on file documented as of this encounter Visit Diagnoses Not on filedocumented in this encounter Care Teams Green Jobs Trainer Relationship Specialty Start Date End Date Santosh Briones MD 200 [facility] [address] [place], [place] [address] PCP - General General Internal Medicine 04/18/22 04/22/22 Santosh Briones MD [address] [facility] [place] [address] PCP - General General Internal Medicine 04/23/22 Julius Cho MD [address] [place] [address] Referring Physician Internal Medicine 04/23/22 Lew Ross MD [address] [facility] [address] [place] [address] Cardiology 08/13/23 Karlos Islas PA-C [address] [facility] [address] [place] [address] Cardiology 11/23/23 documented as of this encounter
--- OUTSIDE RECORDS SUMMARY | 2024-12-06 08:37 | XMS_ITS | Encounter Summary ---
Author Organization [employer] ([place], [place], [place], [place]) Address [address] [place] [address] Care Team Providers Care Pharmacy Services Representative Name Role Phone Santosh Briones MD Primary Care Provider [phone] Santosh Briones MD Primary Care Provider [phone] Julius Cho MD Unavailable Lew Ross MD Unavailable Karlos Islas PA-C Unavailable [phone] Encounter Details Date Type Department Care Team (Late st Contact Info) Description 12/19/2020 Transcribed Document [facility] [place] [facility] [place] [address] Ale Johnson MD [address] [place] [address] Social History Tobacco Use Types Packs/Day Years Used Date Smoking Tobacco: Never Assessed Comments Unknown Sex and Gender Information Value Date Recorded Sex Assigned at Female 03/19/2022 10:49 AM MECHANICAL ENGINEERING PROFESSOR Legal Sex Female 5:46 PM CDT Gender Identity Female 03/19/2022 10:49 AM MECHANICAL ENGINEERING PROFESSOR Sexual Orientation Not on file documented as of this encounter Miscellaneous Notes * Cerner Conversion Note - Ale ProviderMD - 12/19/2020 7:30 AM CDT [facility] Main OR Preop Summary Primary Physician: MEE TUCKER, DPM-POD Finalized Date/Time: 12/19/20 07:52:13 Pt. Name: JANIS FIGUEREDO BILLIE Sands/Sex: 1965 Female Med Rec #: [id number] Physician: MEE TUCKER, DPM-POD Financial #: [id number] Pt. Type: O Room/Bed: / Admit/Disch: 12/19/20 06:32:00 - Institution: [facility] PreOp Case Times Entry 1 In Preop 12/19/20 05:50:00 Ready for Holding n/a Room Patient Ready for 12/19/20 07:48:00 Surgery Patient Out of Preop 12/19/20 07:52:00 Patient Out of n/a Holding Room Last Modified By: Pérez Gil Rn 12/19/20 07:52:11 [facility] PreOp Case Times Audit 12/19/20 07:52:11 Counter Sales Person: [id number] Modifier: [id number] <+> 1 Patient Out of Preop <+> 1 Patient Ready for Surgery Finalized By: Pérez Gil Rn Document Signatures Signed By: Pérez Gil Rn 12/19/20 07:52 Electronically signed by Everardo [facility] Conversion Communications Professional Cerner at 08/22/2022 3:49 PM CDT documented in this encounter Plan of Treatment Not on file documented as of this encounter Visit Diagnoses Not on filedocumented in this encounter Care Teams Pharmacy Services Representative Relationship Specialty Start Date End Date Santosh Briones MD [address] [place] [address] PCP - General General Internal Medicine 04/18/22 04/22/22 Santosh Briones MD [address] [place], [place] [address] PCP - General General Internal Medicine 04/23/22 Julius Cho MD [address] [place] [address] Referring Physician Internal Medicine 04/23/22 Lew Ross MD [address] [place] [address] [address] [place] [address] Cardiology 08/13/23 Karlos Islas PA-C [address], [facility] [address] [place] [address] Cardiology 11/23/23 documented as of this encounter
--- OUTSIDE RECORDS SUMMARY | 2024-12-06 08:38 | XMS_ITS | Encounter Summary ---
Author Organization [employer] ([place], [place], [place], [place]) Address [address] [place] [address] Care Team Providers Care Pain Management Physician Name Role Phone Santosh Briones MD Primary Care Provider [phone] Santosh Briones MD Primary Care Provider [phone] Julius Cho MD Unavailable Lew Ross MD Unavailable Karlos Islas PA-C Unavailable Encounter Details Date Type Department Care Team (Late st Contact Info) Description 07/22/2021 Transcribed Document [facility] [place] Family Medicine [address] [place] [address] ProviderAle MD [address] [place] [address] Social History Tobacco Use Types [...] Do you speak a language other than Northern Irish at [facility]? No 08/17/2023 Do you [...] Sex Assigned at Female 03/19/2022 10:49 AM SCRUBBER MACHINE TENDER Legal Sex Female 5:46 PM CDT Gender Identity Female 03/19/2022 10:49 AM SCRUBBER MACHINE TENDER Sexual Orientation Not on file COVID-19 [...] Ministry Provided to : Patient, Family/Significant other Adventism Preference : Restorationism ZAKI TORO - 07/22/2021 14:56 EDT Spiritual Assessment Spiritual Assessment Comment/Summary Points : Patient declined asking for advance directive info. Provided spiritual support. Spirital Assessment Comment/Summary Report : SPIRITUAL ASSESSMENT COMMENT/SUMMARY No qualifying data available. ZAKI TORO P - 07/22/2021 14:56 EDT Interventions Advance Directive Information Provided : No Spiritual and Adventism : Spiritual/Adventism support provided ZAKI TORO - 07/22/2021 14:56 EDT Electronically signed by Everardo [facility] Conversion Pigment Processor Cerner at 08/22/2022 3:52 PM CDT documented in this encounter Plan of Treatment Not on file documented as of this encounter Visit Diagnoses Not on filedocumented in this encounter Care Teams Pain Management Physician Relationship Specialty Start Date End Date Santosh Briones MD [address] [place], [place] [address] PCP - General General Internal Medicine 04/18/22 04/22/22 Santosh Briones MD [address] [place] [address] [place] [address] PCP - General General Internal Medicine 04/23/22 Julius Cho MD [address] [place] [address] Referring Physician Internal Medicine 04/23/22 Lew Ross MD [address] [facility] [address] [place] [address] Cardiology 08/13/23 Karlos Islas PA-C [address] [place] [address] Cardiology 11/23/23 documented as of this encounter
--- OUTSIDE RECORDS SUMMARY | 2024-12-06 08:38 | XMS_ITS | Encounter Summary ---
Author Organization [employer] ([place], [place], [place], [place]) Address [address] [place] [address] Care Team Providers Care Elevator Service Mechanic Name Role Phone Santosh Briones MD Primary Care Provider [phone] Santosh Briones MD Primary Care Provider [phone] Julius Cho MD Unavailable Lew Ross MD Unavailable Karlos Islas PA-C Unavailable [phone] Encounter Details Date Type Department Care Team (Late st Contact Info) Description 07/19/2021 Transcribed Document [facility] [place] Family Medicine [address] [place] [address] ProviderAle MD [address] [place] [address] Social History Tobacco Use Types [...] Do you speak a language other than Ugandan at [facility]? No 08/17/2023 Do you want help with [...] Sex Assigned at Female 03/19/2022 10:49 AM BORDER INSPECTOR Legal Sex Female 5:46 PM CDT Gender Identity Female 03/19/2022 10:49 AM BORDER INSPECTOR Sexual Orientation Not on file COVID-19 [...] - 07/19/2021 9:32 EDT Electronically signed by [facility] Conversion Solar Sales Cerner at 08/22/2022 3:59 PM CDT documented in this encounter Plan of Treatment Not on file documented as of this encounter Visit Diagnoses Not on filedocumented in this encounter Care Teams Elevator Service Mechanic Relationship Specialty Start Date End Date Santosh Briones MD [address] [place], [place] [id number] PCP - General General Internal Medicine 04/18/22 04/22/22 Santosh Briones MD [address] [facility] [address] [place], [place] [id number] PCP - General General Internal Medicine 04/23/22 Julius Cho MD [address] [place] [address] Referring Physician Internal Medicine 04/23/22 Lew Ross MD [address] [facility] [address] [place] [address] Cardiology 08/13/23 Karlos Islas PA-C [address] [place] [address] Cardiology 11/23/23 documented as of this encounter
--- OUTSIDE RECORDS SUMMARY | 2024-12-06 08:38 | XMS_ITS | Encounter Summary ---
Author Organization [employer] ([place], [place]) Address [address] [place] [address] Care Team Providers Care Reed Repairer Name Role Phone Santosh Briones MD Primary Care Provider [phone] Santosh Briones MD Primary Care Provider [phone] Julius Cho MD Unavailable Lew Ross MD Unavailable Karlos Islas PA-C Unavailable [phone] Encounter Details Date Type Department Care Team (Late st Contact Info) Description 07/22/2021 Transcribed Document [facility] Family Medicine [address] [place] [address] ProviderAle MD [address] [place] [address] Social History Tobacco Use Types [...] speak a language other than Somali at [facility]? No 08/17/2023 [...] Sex Assigned at Female 03/19/2022 10:49 AM CROWN ATTACHER Legal Sex Female 5:46 PM CDT Gender Identity Female 03/19/2022 10:49 AM CROWN ATTACHER Sexual Orientation Not on file COVID-19 Exposure [...] eating solid foods. General instructions ??? Take uzid-dot-mardqts and prescription medicines only as told by [...] provider. Document Revised: 08/17/2020 Document Reviewed: 03/15/2020 Memorandom Patient Education ? 2020 Memorandom Inc. Procedures Endovenous Ablation Endovenous ablation is [...] including vitamins, herbs, eye drops, creams, and lovr-gdm-oabuqay medicines. ??? Any problems you or family [...] tells you to take them. ??? Taking lnnf-hve-tgrtxak medicines, vitamins, herbs, and supplements. Eating and [...] provider. Document Revised: 12/29/2018 Document Reviewed: 12/29/2018 Memorandom Patient Education ? 2020 [employer]andom Inc. Endovenous Ablation, Care After This sheet [...] and water are not available, use hand director of psychology. ? Change your dressing as told by [...] health care provider. General instructions ??? Take rkck-yeq-icpatkc and prescription medicines only as told by [...] provider. Document Revised: 12/29/2018 Document Reviewed: 12/29/2018 [email or web address].TV Patient Education ? 2020 Sim[employer]. documented in this encounter Plan of Treatment Not on file documented as of this encounter Visit Diagnoses Not on filedocumented in this encounter Care Teams Reed Repairer Relationship Specialty Start Date End Date Santosh Briones MD [address] [facility] [address] [place], [place] [id number] PCP - General General Internal Medicine 04/18/22 04/22/22 Santosh Briones MD [address] [facility] [place] [address] PCP - General General Internal Medicine 04/23/22 Julius Cho MD [address] [place] [address] Referring Physician Internal Medicine 04/23/22 Lew Ross MD [address] [facility] [address] [place] [address] Cardiology 08/13/23 Karlos Islas PA-C [address] [place] [address] Cardiology 11/23/23 documented as of this encounter
--- OUTSIDE RECORDS SUMMARY | 2024-12-06 08:38 | XMS_ITS | Encounter Summary ---
Author Organization [employer] ([place], [place], [place], [place]) Address [address] [place] [address] Care Team Providers Care Front Office Agent Name Role Phone Santosh Santos MD Primary Care Provider [phone] Santosh Santos MD Primary Care Provider [phone] Julius Cho MD Unavailable Nader Wu MD Unavailable Karlos Islas PA-C Unavailable [phone] Encounter Details Date Type Department Care Team (Late st Contact Info) Description 07/19/2021 Transcribed Document [facility] Medicine [address] [place] [address] ProviderAle MD [address] [place] [address] Social History Tobacco Use Types [...] Do you speak a language other than Guinean at [facility]? No 08/17/2023 Do you want help with [...] Sex Assigned at Female 03/19/2022 10:49 AM DENTAL TECHNICIAN Legal Sex Female 5:46 PM CDT Gender Identity Female 03/19/2022 10:49 AM DENTAL TECHNICIAN Sexual Orientation Not on file COVID-19 Exposure Response Date Recorded In the last 10 days, have yo u been in contact with someone who was confirmed or suspected to have Coronavirus/COVID-19? No / Unsure 07/17/2022 7:53 AM EDT documented as of this encounter Miscellaneous Notes * Cerner Conversion Note - Historical Provider, - 07/19/2021 9:32 AM CDT [facility] [address] [place], [place] [id number] JANIS FIGUEREDO :1965 Visit Time:07/19/2021 Your Visit [...] at home: Medicines ??? Take or apply pubj-afi-pssyybq and prescription medicines only as told by [...] cannot use soap and water, use hand link assembler. ? Change your bandage as told by [...] provider. Document Revised: 11/30/2018 Document Reviewed: 11/30/2018 Circle Patient Education ?? 2020 Circle Inc. Moderate Conscious Sedation, Adult, Care After [...] eating solid foods. General instructions ??? Take brzd-fip-aeegaia and prescription medicines only as told by [...] Reviewed: 03/15/2020 Elsevier Patient Education ?? 2020 Circle Inc. Emergency Awareness and Preventative Care STROKE [...] Assistance with quitting is available by contacting 2-249-EZXG-NOW. This is a free resource providing counseling, support, and referral. Or you may contact your personal physician. [place] Suicide Prevention Lifeline: The National Suicide Prevention [...] was given the opportunity to ask questions. Patient/Personal Lines Agent Name: Patient/Personal Lines Agent Signature: Relationship to Patient: Clinician/Hospital Personal Lines Agent Signature: Date: documented in this encounter Plan of Treatment Not on file documented as of this encounter Visit Diagnoses Not on filedocumented in this encounter Care Teams Front Office Agent Relationship Specialty Start Date End Date Santosh Santos MD [address] [facility] [address] PCP - General General Internal Medicine 04/18/22 04/22/22 Santosh Santos MD [address] [facility] [place] [address] PCP - General General Internal Medicine 04/23/22 Julius Cho MD [address] [place] [address] Referring Physician Internal Medicine 04/23/22 Nader Wu MD [address] [facility] [address] [place] [address] Cardiology 08/13/23 Karlos Islas PA-C [address] [facility] [place] [address] Cardiology 11/23/23 documented as of this encounter
--- OUTSIDE RECORDS SUMMARY | 2024-12-06 08:38 | XMS_ITS | Clinical Summary ---
Author Organization [facility] Address [address] [place] [address] Care Team Providers Care Bowling Ball Mold Assembler Name Role Phone Santosh Briones MD Primary Care Provider [phone] Social History Tobacco Use Types Packs/Day Years [...] 2013 UKY-Zoster Vaccines (1 of 2) 2013 MMC-ICOFL-50 Vaccine (5 - season) 2024 10/29/2021, 02/01/2021, [...] to complete this topic Insurance Care Teams Bowling Ball Mold Assembler Relationship Specialty Start Date End Date Santosh Briones MD [address] [place] [address] PCP - General 12/31/21
--- OUTSIDE RECORDS SUMMARY | 2024-12-06 08:38 | XMS_ITS | Patient Health Record ---
Author Organization [id number] [facility] Address [address] [place], [place] [id number] Care Team Providers Care Band Machine Operator Name Role Phone NI SANTOS Primary Care [...] Start Date Coverage End Date CIGNA PPO RAAvuxi MAINTENANCE FUND [id number] [place] [id number] Lorenzana, Janis Self - patient is the [...] caval filter placement Hospitalization History Reason Date(Month/Year) [facility]- Chest Pain
--- OUTSIDE RECORDS SUMMARY | 2024-12-06 08:38 | XMS_ITS | CCD ---
Author Name Interface, [employer]cy lity Address [address] [place] [address] Organization [facility] Address [address] [place] [address] [address] [place] [address] Care Team Providers Care Metal Weather Stripper Name Role Phone Misbah STEWART, Fuentes Unavailable [...] 2)-100 mg active Apixaban Oral act wilian Methocarbamol Oral active Pantoprazole (Sodium) Oral Delayed Release acti ve Meloxicam Oral ac tive Gabapentin Oral a ctive Hydrocodone-Acetami nophen Oral 10 mg-325 mg active Problems Diagnosis Status Date of Diagnosis Resolution Date History of deep vein thrombosis (situation) Active Anemia Active Deep vein thrombosis Active HTN 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
--- OUTSIDE RECORDS SUMMARY | 2024-12-06 08:38 | XMS_ITS | Clinical Summary ---
Author Organization [facility] Address [address] [place] [address] Care Team Providers Care Color Printer Operator Name Role Phone Santosh Briones MD Primary Care Provider [phone] Social History Tobacco Use Types Packs/Day Years [...] Payer (Ef fective 2024-Present) Name:Janis Lorenzana Member ID:[id number] Relation to Subscriber:Self Name:Christie Lorenzanalissette Suero Subscriber ID:[id number] Payer ID:[id number] Group ID:Not on file Type:Not on file Address: [address] MEDICARE ADVANTAGE HMO NON PAR Care Teams Color Printer Operator Relationship Specialty Start Date End Date Santosh Briones MD PCP - General Internal Medicine 02/27/22
--- OUTSIDE RECORDS SUMMARY | 2024-12-06 08:38 | XMS_ITS | Encounter Summary ---
Author Organization [employer] ([place], [place], [place], [place]) Address [address] [place] [address] Care Team Providers Care Senior Telecommunications Consultant Name Role Phone Santosh Santos MD Primary Care Provider [phone] Santosh Santos MD Primary Care Provider [phone] Julius Cho MD Unavailable Nader Wu MD Unavailable Karlos Islas PA-C Unavailable [phone] Encounter Details Date Type Department Care Team (Late st Contact Info) Description 07/22/2021 Transcribed Document [facility] [place] Family Medicine [address] [place] [address] ProviderAle MD [address] [place] [address] Social History Tobacco Use Types [...] Do you speak a language other than Fijian at [facility]? No 08/17/2023 [...] Assigned at Female 03/19/2022 10:49 AM SUPERVISOR LAMP SHADES Legal Sex Female 5:46 PM CDT Gender Identity Female 03/19/2022 10:49 AM SUPERVISOR LAMP SHADES Sexual Orientation Not on file COVID-19 Exposure Response Date Recorded In the last 10 days, have yo u been in contact with someone who was confirmed or suspected to have Coronavirus/COVID-19? No / Unsure 07/17/2022 7:53 AM EDT documented as of this encounter Miscellaneous Notes * Cerner Conversion Note - Historical Provider, - 07/22/2021 4:35 PM CDT [facility] [address] [place] [address] JANIS FIGUEREDO :1965 Visit Time:07/22/2021 Your Visit [...] follow-up appointments as previously scheduled. Where: [address] [facility] [address] [place] [address] [facility] (1) Medications What How Much When Instructions [...] including vitamins, herbs, eye drops, creams, and tqzh-qpg-azmtyjc medicines. ??? Any problems you or family [...] tells you to take them. ??? Taking gxle-gmj-ddjqlpb medicines, vitamins, herbs, and supplements. Eating and [...] provider. Document Revised: 12/29/2018 Document Reviewed: 12/29/2018 ElseWorth [employer] Fund Patient Education ?? 2020 Drawn to Scale Inc. Endovenous Ablation, Care After This sheet [...] and water are not available, use hand roll out manager. ? Change your dressing as told [...] health care provider. General instructions ??? Take iobl-umi-vukzzyw and prescription medicines only as told by [...] provider. Document Revised: 12/29/2018 Document Reviewed: 12/29/2018 ElseWorth [employer] Fund Patient Education ?? 202 Drawn to Scale Inc. Moderate Conscious Sedation, Adult, Care After [...] eating solid foods. General instructions ??? Take clfy-six-pbsmzer and prescription medicines only as told by [...] provider. Document Revised: 08/17/2020 Document Reviewed: 03/15/2020 ElseW[employer] Fund Patient Education ?? 2020 Drawn to Scale Inc. Emergency Awareness and Preventative Care STROKE [...] Assistance with quitting is available by contacting 3-949-QEJR-NOW. This is a free resource providing counseling, [...] was given the opportunity to ask questions. Patient/Kitchen Hand Name: Patient/Kitchen Hand Signature: Relationship to Patient: Clinician/Hospital Kitchen Hand Signature: Date: documented in this encounter Plan of Treatment Not on file documented as of this encounter Visit Diagnoses Not on filedocumented in this encounter Care Teams Senior Telecommunications Consultant Relationship Specialty Start Date End Date Santosh Santos MD [address] [facility] [address] [place], [place] [id number] PCP - General General Internal Medicine 04/18/22 04/22/22 Santosh Santos MD [address] [facility] [address] [place], [place] [id number] PCP - General General Internal Medicine 04/23/22 Julius Cho MD [address] [place] [address] Referring Physician Internal Medicine 04/23/22 Nader Wu MD [address] [facility] [address] [place] [address] Cardiology 08/13/23 Karlos Islas PA-C [address] [facility] [address] [place] [address] Cardiology 11/23/23 documented as of this encounter
--- OUTSIDE RECORDS SUMMARY | 2024-12-06 08:38 | XMS_ITS | Encounter Summary ---
Author Organization [employer] ([place], [place], [place], [place]) Address [address] [place] [address] Care Team Providers Care Management Expert Name Role Phone Santosh Briones MD Primary Care Provider [phone] Santosh Briones MD Primary Care Provider [phone] Julius Cho MD Unavailable Lew Ross MD Unavailable Karlos Islas PA-C Unavailable [phone] Encounter Details Date Type Department Care Team (Late st Contact Info) Description 07/22/2021 Transcribed Document [facility] [place] Family Medicine [address] [place] [address] ProviderAle MD [address] [place] [address] Social History Tobacco Use Types [...] Do you speak a language other than Latvian at [facility]? No 08/17/2023 Do you [...] Assigned at Female 03/19/2022 10:49 AM TECHNICAL OPERATIONS MANAGER Legal Sex Female 5:46 PM CDT Gender Identity Female 03/19/2022 10:49 AM TECHNICAL OPERATIONS MANAGER Sexual Orientation Not on file COVID-19 [...] Source : Stated Height Entry Format : [place] Height, Feet : 5 ft(Converted to: 152 cm, 60 Inch) Height, Inches : 7 Inch(Converted to: 0 ft 7 Inch, 17.78 cm) Clinical Height : 170.18 cm Weight Source : Standing scale Weight Entry Format : [place] Clinical Dosing Weight : 126.82 kg Weight, Pounds : 279 lb Body Surface Area (BSA) : 2.33 m2 Body Mass Index : 43.8 kg/m2 (>HHI) Half Way Body Weight : 61 kg Delisa Brothers RN - 07/22/2021 13:41 EDT Health Histories Smoking Status : Never (less than 100 in lifetime; none in last 30 days) Smokeless Tobacco Status : Never Implant/Device Type, Internet Marketing Intern and Model : breast implants IVC filter [...] Delisa Brothers RN - 07/22/2021 13:41 EDT [place] Suicide Severity Rating Scale (C-SSRS) CSSRS Past [...] RN - 07/22/2021 13:41 EDT Spiritual/Cultural Needs Gnosticism Preference : Scientologist Delisa Brothers RN - 07/22/2021 13:41 EDT [...] Ambulatory Legal Guardian : Mother Support Person/Patient Hot Tamale Worker : Yes Support Person/Pt Rep Name : Jose Ramon Lorenzana - Support Person/Pt Rep Contact Information : [phone] Want Family/Rep/Phys Notified of Admit : No Emergency Contact #1 : Lalitha Salomón Emergency Contact #1 Emergency Contact #1 Relationship : Inbgkh-ai-ydr Emergency Contact #2 : Gopal Jimenez Emergency Contact #2 Emergency Contact #2 Relationship : Brother Information Obtained From : Patient Primary Language : Latvian Preferred Communication Mode : Verbal Communication Barrier : None Shower Maid Needed : No Delisa Brothers RN - [...] Scale Risk Level : 0-24 Low Risk [place] Fall Interventions : Adequate lighting, Assistive devices [...] 13:41 EDT Pain Scale Intensity : 0 Deilsa Brothers RN - 07/22/2021 13:41 EDT Image 4 - Images currently included in the form version of this document have not been included in the text rendition version of the form. Electronically signed by Everardo, [facility] Conversion Route Driver Cerner at 08/22/2022 4:03 PM CDT documented in this encounter Plan of Treatment Not on file documented as of this encounter Visit Diagnoses Not on filedocumented in this encounter Care Teams Management Expert Relationship Specialty Start Date End Date Santosh Briones MD [address] [place], [place] [id number] PCP - General General Internal Medicine 04/18/22 04/22/22 Santosh Briones MD [address] [place], [place] [id number] PCP - General General Internal Medicine 04/23/22 Julius Cho MD [address] [place] [address] Referring Physician Internal Medicine 04/23/22 Lew Ross MD [address] [facility] [address] [place] [address] Cardiology 08/13/23 Karlos Islas PA-C [address] [facility] [address] [place] [address] Cardiology 11/23/23 documented as of this encounter
--- OUTSIDE RECORDS SUMMARY | 2024-12-06 08:38 | XMS_ITS | Encounter Summary ---
Author Organization [employer] ([place], [place], [place], [place]) Address [address] [place] [address] Care Team Providers Care Artificial Inseminator Name Role Phone Santosh Briones MD Primary Care Provider [phone] Santosh Briones MD Primary Care Provider [phone] Julius Cho MD Unavailable Lew Ross MD Unavailable Karlos Islas PA-C Unavailable [phone] Encounter Details Date Type Department Care Team (Late st Contact Info) Description 12/14/2020 Transcribed Document [facility] [place] Family Medicine [facility] [place] [address] Ale Johnson MD [address] [place] [address] Social History Tobacco Use Types Packs/Day Years Used Date Smoking Tobacco: Never Assessed Comments Unknown Sex and Gender Information Value Date Recorded Sex Assigned at Female 03/19/2022 10:49 AM TRUCK SALES REPRESENTATIVE Legal Sex Female 5:46 PM CDT Gender Identity Female 03/19/2022 10:49 AM TRUCK SALES REPRESENTATIVE Sexual Orientation Not on file [...] Source : Measured Height Entry Format : [place] Height, Feet : 5 ft(Converted to: 152 cm, 60 Inch) Height, Inches : 7 Inch(Converted to: 0 ft 7 Inch, 17.78 cm) Clinical Height : 170.18 cm Weight Source : Standing scale Weight Entry Format : [place] Clinical Dosing Weight : 116.82 kg Weight, Pounds : 257 lb Body Surface Area (BSA) : 2.25 m2 Body Mass Index : 40.3 kg/m2 (>HHI) [place] Body Weight : 61 kg PETROS HERNDON RN - 12/17/2020 10:31 EDT Health Histories Smoking Status : Never (less than 100 in lifetime; none in last 30 days) Smokeless Tobacco Status : Never Implant/Device Type, Concrete Analyst and Model : breast implants IVC filter [...] Tru Barkley Rn - 12/14/2020 10:55 EDT [place] Suicide Severity Rating Scale (C-SSRS) CSSRS Past [...] Info Legal Guardian : Spouse Support Person/Patient Video Software Engineer : Yes Support Person/Pt Rep Name : Jose Ramon Lorenzana - Support Person/Pt Rep Contact Information : [phone] Want Family/Rep/Phys Notified of Admit : No Tru Barkley Rn - 12/14/2020 10:55 EDT Emergency Contact #1 : Jose Ramon Lorenzana Emergency Contact #1 Emergency Contact #1 Relationship : Pérez GilViri - 12/19/2020 6:14 EDT Emergency Contact #2 : ` Emergency Contact #2 Phone Number : ` Emergency Contact #2 Relationship : ` Information Obtained From : Patient Primary Language : Paraguayan Communication Barrier : None Fan Mail Editor Needed : No Tru Barkley Rn - [...] filedocumented in this encounter Care Teams Artificial Inseminator Relationship Specialty Start Date End Date Santosh Briones MD [address] [place], [place] [address] PCP - General General Internal Medicine 04/18/22 04/22/22 Santosh Briones MD [address] [facility] [address] [place], [place] [id number] PCP - General General Internal Medicine 04/23/22 Julius Cho MD [address] [place] [address] Referring Physician Internal Medicine 04/23/22 Lew Ross MD [address] [facility] [address] [place] [address] Cardiology 08/13/23 Karlos Islas PA-C [address] [facility] [address] [place] [address] Cardiology 11/23/23 documented as of this encounter
--- NOTE | 2024-12-06 09:15 | MR_ITS ---
FINAL REPORT CLINICAL HISTORY: Severe left hip pain left hip pain x 1 month unknown injury FINDINGS: Multiplanar MR imaging of the left hip was performed without contrast. There is moderate hip joint space narrowing bilaterally. The femoral heads have a normal smooth contour. There is no evidence of fracture or dislocation. There is no evidence of avascular necrosis. There are multiple small osteochondral lesions in the superior left acetabulum measuring up to 11 mm. There are mild hypertrophic changes at the acetabular margins. No bony mass is identified. No labral tear is identified. No significant joint effusion is seen. There is minimal edema at the insertions of the abductor tendons bilaterally, left greater than right which are related to mild abductor tendinosis. The musculature is intact. No soft tissue mass or cyst is identified. IMPRESSION: Moderate osteoarthritis with degenerative cysts/osteochondral lesions in the superior left acetabulum. Mild abductor tendinitis, left greater than right Reviewed, Interpreted and Dictated by Shaheed Rao MD Transcribed by Mary Jane Donis Authenticated and [facility]
[2024-12-06 09:25] LABS: Activated Partial Thrombo Time 25.6 seconds (22.8-30.6); D-Dimer 0.92 ug/mL (0.0-0.5); INR 0.99 (0.9-1.1); Prothrombin Time 11.0 seconds (10.1-12.5)
[2024-12-06 09:45] LABS: Cholesterol 207 mg/dl (140-200); HDL Cholesterol 57 mg/dl (40-60); Triglycerides 140 mg/dl (30-150); Uric Acid 5.1 mg/dl (2.5-6.2)
[2024-12-07 12:39] LABS: RA Latex Turbid. <10.0 IU/mL (<14.0)
[2024-12-07 19:13] LABS: Antinuclear Antibodies, IFA Positive (.)
== END 2024-12-06 23:59 | disposition home or self-care (01) ==
LOC: RAD 08:32
PROVIDERS: PCP Nurse Practitioner Family; Visit Provider Nurse Practitioner Family
DX: M25.552 Pain in left hip (principal); M16.12 Unilateral primary osteoarthritis, left hip; Z86.718 Personal history of other venous thrombosis and embolism; Z83.2 Family history of diseases of the blood and blood-forming organs and certain disorders involving the immune mechanism; E78.5 Hyperlipidemia, unspecified; I25.10 Atherosclerotic heart disease of native coronary artery without angina pectoris; M76.9 Unspecified enthesopathy, lower limb, excluding foot
CPT/HCPCS: 36415; 73721; 80061; 84550; 85240; 85246; 85250; 85378; 85610; 85651; 85730; 86038; 86431

== ENCOUNTER 2024-12-12 09:45 | Outpatient (POV) | payer MEDICARE, SELFPAY ==
--- OUTSIDE RECORDS SUMMARY | 2024-12-12 09:52 | XMS_ITS | Clinical Summary ---
Author Organization [facility] Address [address] [place] [address] Care Team Providers Care Metal Can Inspector Name Role Phone Santosh Briones MD Primary Care Provider [phone] Social History Tobacco Use Types Packs/Day Years [...] Payer (Ef fective 2024-Present) Name:Janis Lorenzana Member ID:[id number] Relation to Subscriber:Self Name:Christie Lorenzanalissette Suero Subscriber ID:[id number] Payer ID:[id number] Group ID:Not on file Type:Not on file Address: [address] MEDICARE ADVANTAGE HMO NON PAR Care Teams Metal Can Inspector Relationship Specialty Start Date End Date Santosh Briones MD PCP - General Internal Medicine 02/27/22
--- OUTSIDE RECORDS SUMMARY | 2024-12-12 09:52 | XMS_ITS | Clinical Summary ---
Author Organization [facility] Address [address] [place] [address] Care Team Providers Care Asic Design Engineer Name Role Phone Santosh Briones MD Primary Care Provider [phone] Social History Tobacco Use Types Packs/Day Years [...] Date Last Done Comments [facility]-Depression Screening 1965 [facility]-/Child/Adol SDOH Screenings 1965 [facility]- SDOH Screenings 1981 [facility]-Adult SDOH Screenings 1981 [facility]-DTaP,Tdap,and Td Vaccines (1 - Tdap) 1982 [facility]-Pap Smear 1984 [facility]-Cervical Cancer Screening 1993 [facility]-HPV/Cotest 1993 CT Colonography 2008 Colonoscopy 2008 FIT-DNA 2008 FIT 2008 FOBT 2008 Sigmoidoscopy 2008 [facility]-Colorectal Cancer Screening 2008 [facility]-Pneumococcal Vaccine: 50+ Years (1 of 1 - PCV) 2013 [facility]-Zoster Vaccines (1 of 2) 2013 [facility]-YGEIQ-88 Vaccine (5 - season) 2024 10/29/2021, 02/01/2021, [...] patient's age to complete this topic Insurance * Guarantor: Janis Lorenzana Account Type Relation to Patient Date of Phone Billing Address Personal/Family Self [address] [place] [address] Care Teams Asic Design Engineer Relationship Specialty Start Date End Date Santosh Briones MD [address] [place] [address] PCP - General 12/31/21
--- OUTSIDE RECORDS SUMMARY | 2024-12-12 09:52 | XMS_ITS | CCD ---
Author Name Interface, [email or web address] Address [address] [place] [address] [facility] Address [address] [place] [address] Care Team Providers Care Choir Accompanist Name Role Phone Misbah STEWART, Fuentes Unavailable Unavailable Allergies and Adverse Reactions Reason for Visit Medications Problems Social History
--- OUTSIDE RECORDS SUMMARY | 2024-12-12 09:52 | XMS_ITS | Clinical Summary ---
Author Organization [facility] Address [address] [place] [address] Phone Care Team Providers Care Social And Political Studies Professor Name Role Phone Chris Nunn MD [ ] Conditions or Problems Problem Name Problem Code Onset Date Status Entry Date Provider Comment Standard Description Annotate Hx of pulmonary embolism 775979614 (SNOMED CT) 08/25 Resolved 08/25 Natalia Herron H/O: pulmonary embolus Morbid obesity due to excess calories E66.01 (ICD-10-CM ) 08/25 Active 08/25 Natalia Herron Morbid (severe) obesity due to excess calories Benign Essential Hypertension 87372573 (SNOMED CT) 08/25 Active 08/25 Natalia Herron Benign hypertension Candidiasis of vulva and vagina, acute B37.31 (ICD-10-CM ) 09/20 Active 09/20 Natalia Herron Acute candidiasis of vulva and vagina Yeast infection 8471752 (SNOMED CT) 09/20 Inactive 09/20 Chris Nunn MD Mycosis Scleroderma 79051209 (SNOMED CT) 08/25 Active 08/25 Dania Faulkner Systemic sclerosis Personal history of allergy Bactrim 481925401 (SNOMED CT) 08/25 Active 08/25 Dania Faulkner Allergy to antibacterial drug termite treater current use of anticoagulan ts 418757842 (SNOMED CT) 08/25 Active 08/25 Dania Faulkner Drug therapy finding Hx of pulmonary embolism 163197726 (SNOMED CT) 08/25 Removed 08/25 Dania Faulkner H/O: pulmonary embolus Presence of left artificial ankle joint 956868606 (SNOMED CT) 08/25 Active 08/25 Dania Faulkner Prosthetic total arthroplasty of ankle Morbid obesity 239390009 (SNOMED CT) 08/25 Inactive 08/25 Dania Faulkner Morbid obesity CAD (coronary artery disease) 17796459 (SNOMED CT) 08/25 Active 08/25 Dania Faulkner Coronary arteriosclerosis Hypertension 73377336 (SNOMED CT) 08/25 Inactive 08/25 Dania Faulkner Hypertensive disorder Chronic ulcer of left ankle, skin layer only 972193687 (SNOMED CT) 08/25 Active 08/25 Dania Faulkner Chronic ulcer of ankle Cellulitis of left lower limb 147582472 (SNOMED CT) 08/20 Active 08/20 Dania Faulkner Cellulitis of leg, excluding foot Chronic osteomyeliti s, left ankle 362661569 (SNOMED CT) 08/20 Active 08/20 aDnia Faulkner Chronic osteomyelitis of ankle and/or foot Medications Medication Instructions Start Date Stop Date Generic Name NDC Provider MINOCYCLINE HCL 100 MG TABS Take 1 tablet by mouth once a day minocycline 07441130342 Chris Nunn MD DIFLUCAN 200 MG TABS 1 tablet by mouth once a day as needed for yeast infection fluconazole 83918965881 Chris Nunn MD DOXYCYCLINE HYCLATE 100 MG CAPS 1 capsule by mouth once a day doxycycline hyclate 20323561338 Chris Nunn MD FOLIC ACID 400 MCG TABS Take 2 tablet by mouth once a day folic acid 84343840256 Margaret Bermudez ACETAMINOPHEN 500 MG TABS Take 1 tablet by mouth every six hours as needed acetaminophen 66410722604 Margaret Bermudez NATURAL VITAMIN D-3 125 MCG (5000 UT) TABS Take 1 tablet by mouth once a day cholecalciferol (vitamin d3) 12079665059 Margaret Bermudez ASPIRIN LOW DOSE 81 MG TBEC Take 1 tablet by mouth once a day aspirin 81713253421 Margaret Bermudez FUROSEMIDE 40 MG TABS Take 1 tablet by mouth once a day furosemide 95185795878 Margaret Bermudez apixaban (Eliquis) 5 mg Tab tablet Take 1 tablet by mouth twice a day Eliquis Margaret Bermudez PANTOPRAZOLE SODIUM 40 MG TBEC Take 1 tablet by mouth once a day pantoprazole 86237546890 Margaret Bermudez VITAMIN B-12 1000 MCG TABS Take 1 tablet by mouth once a day cyanocobalamin (vitamin b-12) 76130925301 Margaret Bermudez SACCHAROMYCES BOULARDII 250 MG CAPS Take 1 capsule (250 mg total) by mouth 2 (two) times daily for 7 days. saccharomyces boulardii 78869735187 QIE qieuser PANTOPRAZOLE SODIUM 40 MG TBEC Take 1 tablet (40 mg total) by mouth daily. pantoprazole 50665457756 QIE qieuser FUROSEMIDE 40 MG TABS Take 1 tablet (40 mg total) by mouth daily. furosemide 09768846681 QIE qieuser FOLIC ACID 400 MCG TABS Take 2 tablets (800 mcg total) by mouth daily. folic acid 50109333906 QIE qieuser VITAMIN B-12 1000 MCG TABS Take 1 tablet (1,000 mcg total) by mouth daily. cyanocobalamin (vitamin b-12) 39441027978 QIE qieuser NATURAL VITAMIN D-3 125 MCG (5000 UT) TABS Take 1 tablet (5,000 Units total) by mouth daily. cholecalciferol (vitamin d3) 20021015633 QIE qieuser ASPIRIN LOW DOSE 81 MG TBEC Take 1 tablet (81 mg total) by mouth daily. aspirin 93143660721 QIE qieuser apixaban (Eliquis) 5 mg Tab [...] down for the next 30 min.. alendronate 31910164581 QIE qieuser ACETAMINOPHEN 500 MG TABS Take 1 tablet (500 mg total) by mouth every 6 (six) hours as needed for up to 10 days. acetaminophen 18563097359 QIE qieuser Cubicin RF 500 mg intravenous solution 500mg IV Q24hrs/ OPAT daptomycin 09387369827 Jasmin Proctor RN CEFTRIAXONE SODIUM 2 GM SOLR 2gm IV Q24hrs/ OPAT ceftriaxone 53722219292 Jasmin Proctor RN Medications Administered No information [...] Procedures Code Procedure Name Date Entry Date CPT-61903 CMP [id number] CBC with Differential 2023 CPT-14472 C- reactive protein CPT-92192 Sedimentation Rate (ESR) 202 08/10/07 CPT-coral Change [...]
--- NOTE | 2024-12-12 09:59 | EXP.PAIN.OV ---
HPI Data of Consult Patient: new to practice Consult date: 12/12/24 Requesting Physician: Diane Aguila APRN Primary Care Provider: Abby Phillip APRN Reason for consult: Low back pain, bilateral hip pain History of present illness: Ms. Lorenzana is a 59 year old female who presents today as a new patient. She is a referral from Luisa Phillip's office. Patient does state that she has had chronic low back pain for years that is progressively worsened. She does state that she has been seen at [facility] [place] office they are in [place] however she wanted to be switched closer because this is much easier than going all the way to [place]. Patient does state that she had been getting injections including medial branch blocks and lumbar RFA. She states that that last procedure was done in the end of November and that they had broken apart the left versus the right with 1 being about 3 weeks prior to that. Patient does state that she thinks it did help however she has been having a lot of left hip pain and is unsure if that is causing part of these issues currently. Patient does state that it was about a month ago that that started and that she had just more so turned funny getting in and out of her jeep. She does state that it was a deep achy sensation that is positional and will occasionally send sharp symptoms into the hip area. Patient does state over the last couple of weeks it has eased down and is much better but that she does have an MRI that she is to review over with primary care immediately after this appointment. Patient does typically use [id number]-hwkesro medications such as Tylenol along with prescription medications of gabapentin and Robaxin with some improvement. Patient has tried heat and ice and topicals with minimal changes. Patient does also make mention that she knows her weight gain has caused additional pain. She states that she has probably had around 60 pounds and so it is affecting her range of motion and causing worsening pain. Patient states she has tried to see about getting on some injections for the weight loss but that insurance keeps denying it. Patient feels like overall that she is currently manageable with her pain but did want to go ahead and set up and establish care here at our office. Patient does also state she has had physical therapy and it made her symptoms worse. Her Rivera has been reviewed and is appropriate. Pain at rest (0-10 scale): 6 Has patient had previous pain injection?: No Conservative treatment options previously tried: Home exercise plan (Longer than 12 weeks) cc:: CC: Diane Aguila APRN [facility] Disclaimer: The information contained in this section may have been updated after the patient was seen, as this information can be updated by other users. Medical History (Updated 12/12/24 @ 11:33 by Diane Aguila APRN) Lumbar radiculopathy Heart attack Hyperlipidemia Nerve damage of left foot Osteoporosis Encounter for routine gynecological examination Post-menopausal bleeding Osteoarthritis Obesity Surgical History H/O breast augmentation S/P cholecystectomy H/O hernia repair H/O total ankle replacement H/O gastric bypass Family History Father Diabetes Coronary artery disease Brother Diabetes Family/Other Blood clot in vein Blood disease Social History (Updated 12/12/24 @ 10:14 by Catherine Leyva RN) Smoking Status: Never smoker second hand exposure: No (previously) alcohol intake: former substance use type: denies use current occupational status: disabled Travel in the last 8 weeks?: None Have you lived/traveled outside US in past 30 days?: No Contact w/someone who lives/traveled outside US past 30 days?: No Exposure to someone with infectious disease in past 14 days?: No Do you have a fever (greater than 100.4 F or 38 C)?: No Have you tested positive for COVID-19?: No Exposed to someone with COVID-19 in past 14 days?: No Do you have a sore throat?: No Do you have a cough?: No Do you have shortness of breath?: No Do you have a headache?: No Do you have any weakness?: No Are you experiencing any nausea/vomitting?: No Do you have any diarrhea?: No Are you experiencing any unusual bleeding?: No Do you have any muscle aches/pain?: No Do you have any abdominal pain?: No Are you experiencing loss of taste or smell?: No Review of Systems Review of Systems Review of systems:: pertinent systems reviewed and negative unless documented below Review of systems (narrative): Review of Systems: General: No recent weight changes, no fever, no sleep disturbances Respiratory: No cough, no shortness of air, no recurring pulmonary infections Cardiovascular/peripheral vascular: No chest pain, no palpitations, no edema, no shortness of breath Gastrointestinal: No new onset incontinence, normal bowel movements reported Genitourinary: No new onset incontinence Musculoskeletal: Low back pain, hip pain Psychiatric: [Normal mood/affect] Neurological: [Denies weakness in extremities], [denies balance issues] Meds Home Medications and Allergies Home Medications ?Medication ?Instructions ?Recorded ?Confirmed ?Type acetaminophen 650 mg 1,300 mg PO TID 10/12/24 12/12/24 History tablet,extended release apixaban 5 mg tablet (Eliquis) 5 mg PO BID 10/12/24 12/12/24 History aspirin 81 mg tablet 81 mg PO DAILY 10/12/24 12/12/24 History atorvastatin 80 mg tablet 80 mg PO DAILY 10/12/24 12/12/24 History Held on 11/28/24. Instructions: Home Medication placed on hold at Doctor's office cholecalciferol (vitamin D3) 125 125 mcg PO DAILY 10/12/24 12/12/24 History mcg (5,000 unit) capsule folic acid 1 mg tablet 1 mg PO DAILY 10/12/24 12/12/24 History furosemide 40 mg tablet (Lasix) 40 mg PO DAILY 10/12/24 12/12/24 History gabapentin 300 mg capsule 300 mg PO TID 10/12/24 12/12/24 History minocycline 100 mg capsule 100 mg PO DAILY 10/12/24 12/12/24 History duloxetine 30 mg capsule,delayed 30 mg PO DAILY #30 caps 11/28/24 12/12/24 Rx release ibandronate 150 mg tablet 150 mg PO QMONTH #1 tab 11/28/24 12/12/24 Rx methocarbamol 750 mg tablet 750 mg PO TID #90 tabs 12/09/24 12/12/24 Rx pantoprazole 40 mg tablet,delayed 40 mg PO DAILY #90 tabs 12/09/24 12/12/24 Rx release New Prescriptions to Start Prescriptions: Allergies Allergy/AdvReac Type Severity Reaction Status Date / Time morphine Allergy Severe Chest Pain Verified 11/28/24 11:07 sulfamethoxazole (From Allergy Severe Nausea Verified 11/28/24 11:07 Bactrim) trimethoprim (From Bactrim) Allergy Severe Nausea Verified 11/28/24 11:07 Objective Narrative: Physical Exam: General: Alert and oriented x3, no acute distress, pleasant and cooperative Lungs: Respirations even and unlabored, symmetrical chest expansion Eyes: PERRL Musculoskeletal: Flexion and extension of lumbar [spine] somewhat guarded secondary to pain, [antalgic gait noted] point tenderness along bilateral SIs and greater trochanteric bursa's with positive bilateral Ladarius's, Rylan's, Gaenslen's, compression and distraction exam Neurological: Speech clear, no gross sensory deficit Additional findings Additional findings: FINDINGS: Multiplanar MR imaging of the left hip was performed without contrast. There is moderate hip joint space narrowing bilaterally. The femoral heads have a normal smooth contour. There is no evidence of fracture or dislocation. There is no evidence of avascular necrosis. There are multiple small osteochondral lesions in the superior left acetabulum measuring up to 11 mm. There are mild hypertrophic changes at the acetabular margins. No bony mass is identified. No labral tear is identified. No significant joint effusion is seen. There is minimal edema at the insertions of the abductor tendons bilaterally, left greater than right which are related to mild abductor tendinosis. The musculature is intact. No soft tissue mass or cyst is identified. IMPRESSION: Moderate osteoarthritis with degenerative cysts/osteochondral lesions in the superior left acetabulum. Mild abductor tendinitis, left greater than right Reviewed, Interpreted and Dictated by Shaheed Rao MD Transcribed by Mary Jane Donis [facility] 09/09/2024 MRI lumbar spine without contrast Findings: The L5-S1 shows degenerative disc disease without focal disc herniation or central spinal stenosis. Mild bilateral L5-S1 foraminal stenosis. L4-L5 level shows a central disc herniation indenting the anterior thecal sac. Mild bilateral L4-L5 foraminal stenosis. L3-L4 shows minimal anterolisthesis of L3 on L4. Degenerative disc disease without focal disc herniation or central spinal stenosis. Neuroforamina patent. L2-L3 shows no evidence of disc herniation or spinal stenosis. Neuroforamina patent. L1-L2 and T12 is normal. Conus and cauda equina are normal. Paravertebral soft tissues normal. Assessment and Plan *Assessment and plan (1) Bilateral sacroiliitis: Status: Acute Category: Medical Code(s): M46.1 - Sacroiliitis, not elsewhere classified (2) Greater trochanteric bursitis: Status: Acute Category: Medical Code(s): M70.60 - Trochanteric bursitis, unspecified hip (3) Osteoarthritis of left hip: Status: Acute Category: Medical Code(s): M16.12 - Unilateral primary osteoarthritis, left hip Plan Will order the patient a compounded cream. I did discuss with the patient at length today that I do believe there are several things going on including some sacroiliitis some bursitis and degenerative changes of the left hip that she would do well with a intra-articular injection. Patient however has had improvement over the last couple of weeks and we have discussed that we will try the cream and have her back in 1 month and see how she is doing at that time. Patient agrees with this plan of care. Patient has been instructed to contact the clinic with any concerns before the next appointment. Dr. Hsu has reviewed this note and agrees with this plan of care. This note was dictated using voice recognition software and make contain errors or omissions. All injections are used with Lidocaine, Bupivacaine and dexamethasone. Occasionally urine drug screen is needed to verify patient's compliance with our office pain contract. This is ordered based off specific treatments related to chronic pain with the potential to abuse certain medications.
[2024-12-12 10:12] VITALS: BP 153/85; PULSE 63; RESP 18; O2SAT 97; BMI 45.6
== END 2024-12-12 23:59 | disposition home or self-care (01) ==
LOC: SC.PAIN 09:47
PROVIDERS: PCP Nurse Practitioner Family; Visit Provider Nurse Practitioner Family
DX: M46.1 Sacroiliitis, not elsewhere classified (principal); M70.61 Trochanteric bursitis, right hip; M16.12 Unilateral primary osteoarthritis, left hip; Z79.899 Other long term (current) drug therapy
CPT/HCPCS: 99202; G0463

== ENCOUNTER 2024-12-12 12:40 | Outpatient (CLI) | payer MEDICARE, SELFPAY ==
--- OUTSIDE RECORDS SUMMARY | 2024-12-12 12:43 | XMS_ITS | Clinical Summary ---
Author Organization [facility] Address [address] [place] [address] Phone Care Team Providers Care Community Support Worker Name Role Phone Chris Nunn MD [ ] Conditions or Problems Problem Name Problem Code Onset Date Status Entry Date Provider Comment Standard Description Annotate Hx of pulmonary embolism 181726912 (SNOMED CT) 08/25 Resolved 08/25 Natalia Herron H/O: pulmonary embolus Morbid obesity due to excess calories E66.01 (ICD-10-CM ) 08/25 Active 08/25 Natalia Herron Morbid (severe) obesity due to excess calories Benign Essential Hypertension 00928996 (SNOMED CT) 08/25 Active 08/25 Natalia Herron Benign hypertension Candidiasis of vulva and vagina, acute B37.31 (ICD-10-CM ) 09/20 Active 09/20 Natalia Herron Acute candidiasis of vulva and vagina Yeast infection 2817014 (SNOMED CT) 09/20 Inactive 09/20 Chris Nunn MD Mycosis Scleroderma 56113997 (SNOMED CT) 08/25 Active 08/25 Dania Faulkner Systemic sclerosis Personal history of allergy Bactrim 844829705 (SNOMED CT) 08/25 Active 08/25 Dania Faulkner 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 use of anticoagulan ts 369826339 (SNOMED CT) 08/25 Active 08/25 Dania Faulkner Drug therapy finding Hx of pulmonary embolism 525974608 (SNOMED CT) 08/25 Removed 08/25 Dania Faulkner H/O: pulmonary embolus Presence of left artificial ankle joint 259635168 (SNOMED CT) 08/25 Active 08/25 Dania Faulkner Prosthetic total arthroplasty of ankle Morbid obesity 576768112 (SNOMED CT) 08/25 Inactive 08/25 Dania Faulkner Morbid obesity CAD (coronary artery disease) 68209459 (SNOMED CT) 08/25 Active 08/25 Dania Faulkner Coronary arteriosclerosis Hypertension 29551126 (SNOMED CT) 08/25 Inactive 08/25 Dania Faulkner Hypertensive disorder Chronic ulcer of left ankle, skin layer only 682053225 (SNOMED CT) 08/25 Active 08/25 Dania Faulkner Chronic ulcer of ankle Cellulitis of left lower limb 269092421 (SNOMED CT) 08/20 Active 08/20 Dania Faulkner Cellulitis of leg, excluding foot Chronic osteomyeliti s, left ankle 465846332 (SNOMED CT) 08/20 Active 08/20 Dania Faulkner Chronic osteomyelitis of ankle and/or foot Medications Medication Instructions Start Date Stop Date Generic Name NDC Provider MINOCYCLINE HCL 100 MG TABS Take 1 tablet by mouth once a day minocycline 28612552294 Chris Nunn MD DIFLUCAN 200 MG TABS 1 tablet by mouth once a day as needed for yeast infection fluconazole 61206199019 Chris Nunn MD DOXYCYCLINE HYCLATE 100 MG CAPS 1 capsule by mouth once a day doxycycline hyclate 67434105489 Chris Nnun MD FOLIC ACID 400 MCG TABS Take 2 tablet by mouth once a day folic acid 77469625133 Margaret Bermudez ACETAMINOPHEN 500 MG TABS Take 1 tablet by mouth every six hours as needed acetaminophen 33191683005 Margaret Bermudez NATURAL VITAMIN D-3 125 MCG (5000 UT) TABS Take 1 tablet by mouth once a day cholecalciferol (vitamin d3) 41660518822 Margaret Bermudez ASPIRIN LOW DOSE 81 MG TBEC Take 1 tablet by mouth once a day aspirin 33798703785 Margaret Bermudez FUROSEMIDE 40 MG TABS Take 1 tablet by mouth once a day furosemide 01143876485 Margaret Bermudez apixaban (Eliquis) 5 mg Tab tablet Take 1 tablet by mouth twice a day Eliquis Margaret Bermudez PANTOPRAZOLE SODIUM 40 MG TBEC Take 1 tablet by mouth once a day pantoprazole 92727964366 Margaret Bermudez VITAMIN B-12 1000 MCG TABS Take 1 tablet by mouth once a day cyanocobalamin (vitamin b-12) 01738160796 Margaret Bermudez SACCHAROMYCES BOULARDII 250 MG CAPS Take 1 capsule (250 mg total) by mouth 2 (two) times daily for 7 days. saccharomyces boulardii 09558993841 QIE qieuser PANTOPRAZOLE SODIUM 40 MG TBEC Take 1 tablet (40 mg total) by mouth daily. pantoprazole 06208111799 QIE qieuser FUROSEMIDE 40 MG TABS Take 1 tablet (40 mg total) by mouth daily. furosemide 62040102307 QIE qieuser FOLIC ACID 400 MCG TABS Take 2 tablets (800 mcg total) by mouth daily. folic acid 04908299148 QIE qieuser VITAMIN B-12 1000 MCG TABS Take 1 tablet (1,000 mcg total) by mouth daily. cyanocobalamin (vitamin b-12) 69264595732 QIE qieuser NATURAL VITAMIN D-3 125 MCG (5000 UT) TABS Take 1 tablet (5,000 Units total) by mouth daily. cholecalciferol (vitamin d3) 87426345239 QIE qieuser ASPIRIN LOW DOSE 81 MG TBEC Take 1 tablet (81 mg total) by mouth daily. aspirin 20810506594 QIE qieuser apixaban (Eliquis) 5 mg Tab [...] down for the next 30 min.. alendronate 93367664536 QIE qieuser ACETAMINOPHEN 500 MG TABS Take 1 tablet (500 mg total) by mouth every 6 (six) hours as needed for up to 10 days. acetaminophen 64878983496 QIE qieuser Cubicin RF 500 mg intravenous solution 500mg IV Q24hrs/ OPAT daptomycin 19671437465 Jasmin Proctor RN CEFTRIAXONE SODIUM 2 GM SOLR 2gm IV Q24hrs/ OPAT ceftriaxone 92493184643 Jasmin Proctor RN Medications Administered No information [...] Procedures Code Procedure Name Date Entry Date CPT-51406 CMP E0731p,[id number] CBC with Differential 2023 CPT-76706 C- reactive protein CPT-38541 Sedimentation Rate (ESR) 202 08/10/07 CPT-coral Change [...]
--- OUTSIDE RECORDS SUMMARY | 2024-12-12 12:43 | XMS_ITS | Encounter Summary ---
Author Organization [employer] ([place], [place], [place], [place]) Address [address] [place] [address] Care Team Providers Care Value Advisor Name Role Phone Santosh Briones MD Primary Care Provider [phone] Santosh Briones MD Primary Care Provider [phone] Julius Cho MD Unavailable Lew Ross MD Unavailable Karlos Islas PA-C Unavailable [phone] Encounter Details Date Type Department Care Team (Late st Contact Info) Description 07/24/2021 Transcribed Document [facility] [address] [place] [address] ProviderAle MD [address] [place] [address] Social History Tobacco Use Types [...] Do you speak a language other than Luxembourgish at [facility]? 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 ??? [...] provider. Document Revised: 08/22/2020 Document Reviewed: 08/22/2020 ElseItegria Patient Education ? 2020 [employer] Infectious Disease Wound Infection A wound [...] at home: Medicines ??? Take or apply yvmx-mlm-pogpinf and prescription medicines only as told by [...] cannot use soap and water, use hand neurology specialist. ? Change your bandage as told [...] provider. Document Revised: 11/30/2018 Document Reviewed: 11/30/2018 ElseItegria Patient Education ? 2020 [employer] Pharmacology Moderate Conscious Sedation, Adult, Care [...] eating solid foods. General instructions ??? Take jmhi-fiy-gmibgwb and prescription medicines only as told by [...] Reviewed: 03/15/2020 Elsevier Patient Education ? 2020 [employer] documented in this encounter Plan of Treatment Not on file documented as of this encounter Visit Diagnoses Not on filedocumented in this encounter Care Teams Value Advisor Relationship Specialty Start Date End Date Santosh Briones MD [address] [facility] [address] [place], [place] [id number] PCP - General General Internal Medicine 04/18/22 04/22/22 Santosh Briones MD [address] [facility] [place] [address] PCP - General General Internal Medicine 04/23/22 Julius Cho MD [address] [place] [address] Referring Physician Internal Medicine 04/23/22 Lew Ross MD [address] [facility] [address] [place] [address] Cardiology 08/13/23 Karlos Islas PA-C [address] [place] [address] Cardiology 11/23/23 documented as of this encounter
--- OUTSIDE RECORDS SUMMARY | 2024-12-12 12:43 | XMS_ITS | CCD ---
Author Name Interface, [id number] lity Address [address] [place] [address] Oncology an d Hematology Address [address] [place] [address] Care Team Providers Care Police Captain Precinct Name Role Phone Misbah STEWART, Fuentes Unavailable Unavailable Allergies and Adverse Reactions Reason for Visit Medications Problems Social History
--- OUTSIDE RECORDS SUMMARY | 2024-12-12 12:43 | XMS_ITS | Encounter Summary ---
Author Organization [employer] ([place], [place], [place], [place]) Address [address] [place] [address] Care Team Providers Care Vinyl Hanger Name Role Phone Santosh Briones MD Primary Care Provider [phone] Santosh Briones MD Primary Care Provider [phone] Julius Cho MD Unavailable Lew Ross MD Unavailable Karlos Islas PA-C Unavailable [phone] Encounter Details Date Type Department Care Team (Late st Contact Info) Description 12/19/2020 Transcribed Document [facility] [place] [facility] [place] [address] Ale Johnson MD [address] [place] [address] Social History Tobacco Use Types Packs/Day Years Used Date Smoking Tobacco: Never Assessed Comments Unknown Sex and Gender Information Value Date Recorded Sex Assigned at Female 03/19/2022 10:49 AM 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 Name: JANIS FIGUEREDO BILLIE Sands/Sex: 1965 Female Med Rec #: [id number] Physician: MEE TUCKER, DPM-POD Financial #: [id number] Pt. Type: O Room/Bed: / Admit/Disch: 12/19/20 06:32:00 - Institution: [facility] Main OR PostOp Case Times Entry 1 In PACU II 12/19/20 11:10:00 Ready for PACU II 12/19/20 12:11:00 Discharge Discharge from PACU 12/19/20 12:11:00 II Last Modified By: SIOMARA ALLEN RN 12/19/20 12:16:39 [facility] Main OR PostOp Case Times Audit 12/19/20 12:16:39 Button Station Worker: [id number] Modifier: [id number] <+> 1 Ready for PACU II Discharge <+> 1 Discharge from PACU II Finalized By: SIOMARA ALLEN RN Document Signatures Signed By: SIOMARA ALLEN RN 12/19/20 12:16 Electronically signed by [facility] Conversion Cleaning Staff Supervisor Cerner at 08/22/2022 3:51 PM CDT documented in this encounter Plan of Treatment Not on file documented as of this encounter Visit Diagnoses Not on filedocumented in this encounter Care Teams Vinyl Hanger Relationship Specialty Start Date End Date Santosh Briones MD [address] [facility] [address] [place], [place] [id number] PCP - General General Internal Medicine 04/18/22 04/22/22 Santosh Briones MD [address] [facility] [address] [place], [place] [address] PCP - General General Internal Medicine 04/23/22 Julius Cho MD [address] [place] [address] Referring Physician Internal Medicine 04/23/22 Lew Ross MD [address] [facility] [address] [place] [address] Cardiology 08/13/23 Karlos Islas PA-C [address] [facility] [address] [place] [address] Cardiology 11/23/23 documented as of this encounter
--- OUTSIDE RECORDS SUMMARY | 2024-12-12 12:43 | XMS_ITS | Encounter Summary ---
Author Organization [employer] ([place], [place], [place], [place]) Address [address] [place] [address] Care Team Providers Care Scooter Mechanic Name Role Phone Santosh Briones MD Primary Care Provider [phone] Santosh Briones MD Primary Care Provider [phone] Julius Cho MD Unavailable Lew Ross MD Unavailable Karlos Islas PA-C Unavailable [phone] Encounter Details Date Type Department Care Team (Late st Contact Info) Description 07/23/2021 Transcribed Document [facility] [place] Medicine [address] [place] [address] ProviderAle MD [address] [place] [address] Social History Tobacco Use Types [...] Do you speak a language other than Guatemalan at [facility]? 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 Legal Sex Female 5:46 PM CDT Gender Identity Female 03/19/2022 10:49 AM EXTRUDING MACHINE OPERATOR Sexual Orientation Not on file [...] Source : Stated Height Entry Format : Zavala Height, Feet : 5 ft(Converted to: 152 cm, 60 Inch) Height, Inches : 7 Inch(Converted to: 0 ft 7 Inch, 17.78 cm) Clinical Height : 170.18 cm Weight Source : Standing scale Weight Entry Format : Zavala Clinical Dosing Weight : 126.82 kg Weight, Pounds : 279 lb Body Surface Area (BSA) : 2.33 m2 Body Mass Index : 43.8 kg/m2 (>HHI) [place] Body Weight : 61 kg Lisa Prado RN - 07/23/2021 13:19 EDT Health Histories Smoking Status : Never (less than 100 in lifetime; none in last 30 days) Smokeless Tobacco Status : Never Implant/Device Type, Snow Plow Operator and Model : breast implants IVC [...] Lisa Prado RN - 07/23/2021 13:19 EDT [place] Suicide Severity Rating Scale (C-SSRS) CSSRS Past [...] 07/23/2021 13:19 EDT General Info Support Person/Patient Coke Production Heater : Yes Support Person/Pt Rep Name : Jose Ramon Lorenzana - Support Person/Pt Rep Contact Information : [phone] Want Family/Rep/Phys Notified of Admit : No Emergency Contact #1 : na Emergency Contact #1 Phone Number : na Emergency Contact #1 Relationship : na Emergency Contact #2 : na Emergency Contact #2 Phone Number : na Emergency Contact #2 Relationship : na Primary Language : Guatemalan Preferred Communication Mode : Verbal Communication Barrier : None Electrical Products Sales Engineer Needed : No Lisa Prado RN - [...] Scale Risk Level : 0-24 Low Risk [place] Fall Interventions : Adequate lighting, Assistive devices [...] on filedocumented in this encounter Care Teams Scooter Mechanic Relationship Specialty Start Date End Date Santosh Briones MD [address] [facility] [address] [place], [place] [id number] PCP - General General Internal Medicine 04/18/22 04/22/22 Santosh Briones MD [address] [place], [place] [address] PCP - General General Internal Medicine 04/23/22 Julius Cho MD [address] [place] [address] Referring Physician Internal Medicine 04/23/22 Lew Ross MD [address] [facility] [address] [place] [address] Cardiology 08/13/23 Karlos Islas PA-C [address] [facility] [place] [address] Cardiology 11/23/23 documented as of this encounter
--- OUTSIDE RECORDS SUMMARY | 2024-12-12 12:43 | XMS_ITS | Encounter Summary ---
Author Organization [employer] ([place], [place], [place], [place]) Address [address] [place] [address] Care Team Providers Care Loom Operator Name Role Phone Santosh Briones MD Primary Care Provider Santosh Briones MD Primary Care Provider [phone] Julius Cho MD Unavailable Lew Ross MD Unavailable Karlos Islas PA-C Unavailable [phone] Encounter Details Date Type Department Care Team (Late st Contact Info) Description 12/19/2020 Transcribed Document [facility] [place] [address] ProviderAle MD [address] [place] [address] Social History Tobacco Use Types Packs/Day Years Used Date Smoking Tobacco: Never Assessed Comments Unknown Sex and Gender Information Value Date Recorded Sex Assigned at Female 03/19/2022 10:49 AM MIDDLEWARE ADMINISTRATOR Legal Sex Female 5:46 PM CDT Gender Identity Female 03/19/2022 10:49 AM MIDDLEWARE ADMINISTRATOR Sexual Orientation Not on file documented as of this encounter Miscellaneous Notes * Cerner Conversion Note - Ale ProviderMD - 12/19/2020 11:50 AM CDT [facility] [place] [address] JANIS FIGUEREDO :1965 Visit Time:12/19/2020 What [...] Comments Follow up Thursday as scheduled Where: [address] [place] [address] Medications What How Much When Instructions Next Dose acetaminophen-oxyCODONE (acetaminophen-oxyCODONE 325 mg-7.5 mg oral tablet) 1 Tablet(s) Oral Every 6 Hours as needed for for pain Pickup at [place] [address] apixaban (Eliquis 5 mg oral tablet) 1 Tablet(s) Oral Two Times A Day atorvastatin (atorvastatin 40 mg oral tablet) 1 Tablet(s) Oral Every Day cephalexin (Keflex 500 mg oral capsule) 1 Capsule(s) Oral Every 8 Hours Duration: 1 Day(s) Pickup at [place] [address] cyanocobalamin (Vitamin B12 1000 mcg oral tablet) [...] for as needed for nausea/vomiting Pickup at [place] [address] Pharmacy Information [place] [address]: [address] [place], [place] [id number] [phone] Take your medications faithfully. Do NOT skip [...] activities are safe for you. ??? Take ywhx-vtb-jingajd and prescription medicines only as told by [...] provider. Document Revised: 04/23/2018 Document Reviewed: 12/04/2017 BBspace Patient Education ?? 2020 [employer]. Emergency Awareness and Preventative Care STROKE is [...] Assistance with quitting is available by contacting 6-786-EHUT-NOW. This is a free resource providing counseling, [...] was given the opportunity to ask questions. Patient/Angle Bender Name: Patient/Angle Bender Signature: Relationship to Patient: Clinician/Hospital Angle Bender Signature: Date: documented in this encounter Plan of Treatment Not on file documented as of this encounter Visit Diagnoses Not on filedocumented in this encounter Care Teams Loom Operator Relationship Specialty Start Date End Date Santosh Briones MD [address] [place] [address] [place] [address] PCP - General General Internal Medicine 04/18/22 04/22/22 Santosh Briones MD [address] [place] [address] [place] [address] PCP - General General Internal Medicine 04/23/22 Julius Cho MD [address] [place] [address] Referring Physician Internal Medicine 04/23/22 Lew Ross MD [address] [facility] [address] [place] [address] Cardiology 08/13/23 Karlos sIlas PA-C [address] [facility], [facility] [address] [place] [address] Cardiology 11/23/23 documented as of this encounter
--- OUTSIDE RECORDS SUMMARY | 2024-12-12 12:43 | XMS_ITS | Encounter Summary ---
Author Organization [employer] ([place], [place], [place], [place]) Address [address] [place] [address] Care Team Providers Care Gas Operations Analyst Name Role Phone Santosh Briones MD Primary Care Provider [phone] Santosh Briones MD Primary Care Provider [phone] Julius Cho MD Unavailable Lew Ross MD Unavailable Karlos Islas PA-C Unavailable [phone] Encounter Details Date Type Department Care Team (Late st Contact Info) Description 07/19/2021 Transcribed Document [facility] [address] [place] [address] ProviderAle MD [address] [place] [address] Social History Tobacco Use Types [...] Do you speak a language other than Mauritanian at [facility]? No 08/17/2023 Do [...] Sex Assigned at Female 03/19/2022 10:49 AM CANDY WAFFLE ASSEMBLER Legal Sex Female 5:46 PM CDT Gender Identity Female 03/19/2022 10:49 AM CANDY WAFFLE ASSEMBLER Sexual Orientation Not on file COVID-19 [...] at home: Medicines ??? Take or apply zgow-cwi-qeglsly and prescription medicines only as told by [...] cannot use soap and water, use hand relationship advisor. ? Change your bandage as told [...] provider. Document Revised: 11/30/2018 Document Reviewed: 11/30/2018 ElsePiazza Patient Education ? 2020 [employer] Pharmacology Moderate Conscious Sedation, Adult, Care [...] eating solid foods. General instructions ??? Take ankp-gmz-eofpscq and prescription medicines only as told by [...] provider. Document Revised: 08/17/2020 Document Reviewed: 03/15/2020 [employer] Patient Education ? 2020 [employer]. documented in this encounter Plan of Treatment Not on file documented as of this encounter Visit Diagnoses Not on filedocumented in this encounter Care Teams Gas Operations Analyst Relationship Specialty Start Date End Date Santosh Briones MD [address] [facility] [address] [place], [place] [address] PCP - General General Internal Medicine 04/18/22 04/22/22 Santosh Briones MD [address] [facility] [place] [address] PCP - General General Internal Medicine 04/23/22 Julius Cho MD [address] [place] [address] Referring Physician Internal Medicine 04/23/22 Lew Ross MD [address] [facility] [address] [place] [address] Cardiology 08/13/23 Karlos Islas PA-C [address] [facility] [address] [place] [address] Cardiology 11/23/23 documented as of this encounter
--- OUTSIDE RECORDS SUMMARY | 2024-12-12 12:43 | XMS_ITS | Encounter Summary ---
Author Organization [employer] ([place], [place], [place], [place]) Address [address] [place] [address] Care Team Providers Care Purchasing Administrative Assistant Name Role Phone Santosh Briones MD Primary Care Provider [phone] Santosh Briones MD Primary Care Provider [phone] Julius Cho MD Unavailable Lew Ross MD Unavailable Karlos Islas PA-C Unavailable Encounter Details Date Type Department Care Team (Late st Contact Info) Description 12/19/2020 Transcribed Document [facility] [place] [address] Ale Johnson MD [address] [place] [address] Social History Tobacco Use Types Packs/Day Years Used Date Smoking Tobacco: Never Assessed Comments Unknown Sex and Gender Information Value Date Recorded Sex Assigned at Female 03/19/2022 10:49 AM JAVA PERFORMANCE ENGINEER Legal Sex Female 5:46 PM CDT Gender Identity Female 03/19/2022 10:49 AM JAVA PERFORMANCE ENGINEER Sexual Orientation Not on file documented as of this encounter Miscellaneous Notes * Cerner Conversion Note - Ale ProviderMD - 12/19/2020 7:30 AM CDT [facility] Main OR Preop Summary Primary Physician: MEE TUCKER, DPM-POD Finalized Date/Time: 12/19/20 07:52:13 Pt. Name: JANIS FIGUEREDO BILLIE Sands/Sex: 1965 Female Med Rec #: [id number] Physician: MEE TUCKER, DPM-POD Financial #: [id number] Pt. Type: O Room/Bed: / Admit/Disch: 12/19/20 06:32:00 - Institution: [facility] PreOp Case Times Entry 1 In Preop 12/19/20 05:50:00 Ready for Holding n/a Room Patient Ready for 12/19/20 07:48:00 Surgery Patient Out of Preop 12/19/20 07:52:00 Patient Out of n/a Holding Room Last Modified By: Pérez Gil Rn 12/19/20 07:52:11 [facility] PreOp Case Times Audit 12/19/20 07:52:11 Machine Gunner: [id number] Modifier: [id number] <+> 1 Patient Out of Preop <+> 1 Patient Ready for Surgery Finalized By: Pérez Gil Rn Document Signatures Signed By: Pérez Gil Rn 12/19/20 07:52 Electronically signed by [facility] Conversion Grocery Clerk Checking Cerner at 08/22/2022 3:49 PM CDT documented in this encounter Plan of Treatment Not on file documented as of this encounter Visit Diagnoses Not on filedocumented in this encounter Care Teams Purchasing Administrative Assistant Relationship Specialty Start Date End Date Santosh Briones MD [address] [place] [address] [place] [address] PCP - General General Internal Medicine 04/18/22 04/22/22 Santosh Briones MD [address] [place], [place] [address] PCP - General General Internal Medicine 04/23/22 Julius Cho MD [address] [place] [address] Referring Physician Internal Medicine 04/23/22 Lew Ross MD [address] [place] [address] [address] [place] [address] Cardiology 08/13/23 Karlos Islas PA-C [address] [facility] [address] [place] [address] Cardiology 11/23/23 documented as of this encounter
--- OUTSIDE RECORDS SUMMARY | 2024-12-12 12:43 | XMS_ITS | Encounter Summary ---
Author Organization [employer] ([place], [place], [place], [place]) Address [address] [place] [address] Care Team Providers Care Sales Expert Name Role Phone Santosh Briones MD Primary Care Provider [phone] Santosh Briones MD Primary Care Provider [phone] Julius Cho MD Unavailable Lew Ross MD Unavailable Karlos Islas PA-C Unavailable [phone] Encounter Details Date Type Department Care Team (Late st Contact Info) Description 12/19/2020 Transcribed Document [facility] [place] [address] Ale Johnson MD [address] [place] [address] Social History Tobacco Use Types Packs/Day Years Used Date Smoking Tobacco: Never Assessed Comments Unknown Sex and Gender Information Value Date Recorded Sex Assigned at Female 03/19/2022 10:49 AM RADIAGRAPH OPERATOR Legal Sex Female 5:46 PM CDT Gender Identity Female 03/19/2022 10:49 AM RADIAGRAPH OPERATOR Sexual Orientation Not on file documented [...] - 12/19/2020 7:49 EDT Electronically signed by [facility] Conversion Core Drill Operator Helper Cerner at 08/22/2022 3:50 PM CDT documented in this encounter Plan of Treatment Not on file documented as of this encounter Visit Diagnoses Not on filedocumented in this encounter Care Teams Sales Expert Relationship Specialty Start Date End Date Santosh Briones MD [address] [facility] [address] [place], [place] [address] PCP - General General Internal Medicine 04/18/22 04/22/22 Santosh Brionse MD [address] [facility] [address] [place], [place] [address] PCP - General General Internal Medicine 04/23/22 Julius Cho MD [address] [place] [address] Referring Physician Internal Medicine 04/23/22 Lew Ross MD [address] [facility] [address] [place] [address] Cardiology 08/13/23 Karlos Islas PA-C [address] [facility] [place] [address] Cardiology 11/23/23 documented as of this encounter
--- OUTSIDE RECORDS SUMMARY | 2024-12-12 12:43 | XMS_ITS | Encounter Summary ---
Author Organization [email or web address] ([place], [place], [place], [place]) Address [address] [place] [address] Care Team Providers Care Salesperson Men'S And Boys' Clothing Name Role Phone Santosh Briones MD Primary Care Provider [phone] Santosh Briones MD Primary Care Provider [phone] Julius Cho MD Unavailable Lew Ross MD Unavailable Karlos Islas PA-C Unavailable [phone] Encounter Details Date Type Department Care Team (Late st Contact Info) Description 07/25/2021 Transcribed Document [facility] [place] [address] [place] [address] ProviderAle MD [address] [place] [address] Social History Tobacco Use Types [...] Do you speak a language other than Lithuanian at [facility]? No 08/17/2023 Do [...] Sex Assigned at Female 03/19/2022 10:49 AM TRACER CLERK Legal Sex Female 5:46 PM CDT Gender Identity Female 03/19/2022 10:49 AM TRACER CLERK Sexual Orientation Not on file COVID-19 [...] eating solid foods. General instructions ??? Take qmbf-ydj-jvkzaea and prescription medicines only as told by [...] provider. Document Revised: 08/17/2020 Document Reviewed: 03/15/2020 MinoMonsters Patient Education ? 2020 [employer] Inc. Procedures Endovenous Ablation, Care After This [...] and water are not available, use hand cnc mill operator. ? Change your dressing as told [...] health care provider. General instructions ??? Take lrpb-znu-cuecwxf and prescription medicines only as told by [...] provider. Document Revised: 12/29/2018 Document Reviewed: 12/29/2018 MinoMonsters Patient Education ? 2020 [employer]. documented in this encounter Plan of Treatment Not on file documented as of this encounter Visit Diagnoses Not on filedocumented in this encounter Care Teams Salesperson Men'S And Boys' Clothing Relationship Specialty Start Date End Date Satnosh Briones MD [address] [facility] [place] [address] PCP - General General Internal Medicine 04/18/22 04/22/22 Santosh Briones MD [address] [facility] [place] [address] PCP - General General Internal Medicine 04/23/22 Julius Cho MD [address] [place] [address] Referring Physician Internal Medicine 04/23/22 Lew Ross MD [address] [facility] [address] [place] [address] Cardiology 08/13/23 Karlos Islas PA-C [address] [place] [address] Cardiology 11/23/23 documented as of this encounter
--- OUTSIDE RECORDS SUMMARY | 2024-12-12 12:43 | XMS_ITS | Encounter Summary ---
Author Organization [employer] ([place], [place], [place], [place]) Address [address] [place] [address] Care Team Providers Care Associate Director Of Sales Name Role Phone Santosh Santos MD Primary Care Provider [phone] Santosh Santos MD Primary Care Provider [phone] Julius Cho MD Unavailable Nader Wu MD Unavailable Karlos Islas PA-C Unavailable [phone] Encounter Details Date Type Department Care Team (Late st Contact Info) Description 07/25/2021 Transcribed Document [facility] [place] Family Medicine [address] [place] [address] ProviderAle MD [address] [place] [address] Social History Tobacco Use Types [...] speak a language other than Ecuadorean at [facility]? No 08/17/2023 [...] Sex Assigned at Female 03/19/2022 10:49 AM RF MANAGER Legal Sex Female 5:46 PM CDT Gender Identity Female 03/19/2022 10:49 AM RF MANAGER Sexual Orientation Not on file COVID-19 Exposure Response Date Recorded In the last 10 days, have yo u been in contact with someone who was confirmed or suspected to have Coronavirus/COVID-19? No / Unsure 07/17/2022 7:53 AM EDT documented as of this encounter Miscellaneous Notes * Cerner Conversion Note - Historical Provider, - 07/25/2021 4:01 PM CDT [facility] [address] [place], [place] [id number] JANIS FIGUEREDO :1965 Visit Time:07/25/2021 Your Visit [...] MD-CAR When Comments Follow-up as instructed Where: [address] [place] [address] [address] [place] [address]- Medications What How Much When Instructions Next [...] and water are not available, use hand dancing master. ? Change your dressing as told by [...] health care provider. General instructions ??? Take uokc-bvh-mcxdqtt and prescription medicines only as told by [...] provider. Document Revised: 12/29/2018 Document Reviewed: 12/29/2018 [employer] Patient Education ?? 2020 [employer]. Moderate Conscious Sedation, Adult, Care After [...] eating solid foods. General instructions ??? Take djvn-ypp-bbbdpzt and prescription medicines only as told by [...] provider. Document Revised: 08/17/2020 Document Reviewed: 03/15/2020 [employer] Patient Education ?? 2020 [employer] Inc. Emergency Awareness and Preventative Care STROKE [...] Assistance with quitting is available by contacting 5-688-LDTC-NOW. This is a free resource providing counseling, [...] was given the opportunity to ask questions. Patient/Gold Miner Blasting Name: Patient/Gold Miner Blasting Signature: Relationship to Patient: Clinician/Hospital Gold Miner Blasting Signature: Date: documented in this encounter Plan of Treatment Not on file documented as of this encounter Visit Diagnoses Not on filedocumented in this encounter Care Teams Associate Director Of Sales Relationship Specialty Start Date End Date Santosh Santos [facility] [address] [place], [place] [id number] PCP - General General Internal Medicine 04/18/22 04/22/22 Santosh Santos MD [address] [facility] [place] [address] [place] [address] PCP - General General Internal Medicine 04/23/22 Julius Cho MD [address] [place] [address] Referring Physician Internal Medicine 04/23/22 Nader Wu MD [address] [facility] [address] [place] [address] Cardiology 08/13/23 Karlos Islas PA-C [address] [place] [address] Cardiology 11/23/23 documented as of this encounter
--- OUTSIDE RECORDS SUMMARY | 2024-12-12 12:43 | XMS_ITS | Encounter Summary ---
Author Organization [employer] ([place], [place], [place], [place]) Address [address] [place] [address] Care Team Providers Care Equip Maint Eng Name Role Phone Santosh Briones MD Primary Care Provider [phone] Santosh Briones MD Primary Care Provider [phone] Julius Cho MD Unavailable Lew Ross MD Unavailable Karlos Islas PA-C Unavailable [phone] Encounter Details Date Type Department Care Team (Late st Contact Info) Description 07/25/2021 Transcribed Document [facility] [place] Family Medicine [address] [place] [address] ProviderAle MD [address] [place] [address] Social History Tobacco Use Types [...] Do you speak a language other than [place]ican at [facility]? No 08/17/2023 Do [...] Sex Assigned at Female 03/19/2022 10:49 AM JACK SETTER Legal Sex Female 5:46 PM CDT Gender Identity Female 03/19/2022 10:49 AM JACK SETTER Sexual Orientation Not on file COVID-19 Exposure [...] - 07/25/2021 15:59 EDT Electronically signed by [facility] Conversion Groundskeeper Cerner at 08/22/2022 4:06 PM CDT documented in this encounter Plan of Treatment Not on file documented as of this encounter Visit Diagnoses Not on filedocumented in this encounter Care Teams Equip Maint Eng Relationship Specialty Start Date End Date Santosh Briones MD [address] [facility] [address] [place], [place] [id number] PCP - General General Internal Medicine 04/18/22 04/22/22 Santosh Briones MD [address] [facility] [address] [place], [place] [id number] PCP - General General Internal Medicine 04/23/22 Julius Cho MD [address] [place] [address] Referring Physician Internal Medicine 04/23/22 Lew Ross MD [address] [facility] [address] [place] [address] Cardiology 08/13/23 Karlos Islas PA-C [address] [place] [address] Cardiology 11/23/23 documented as of this encounter
--- OUTSIDE RECORDS SUMMARY | 2024-12-12 12:43 | XMS_ITS | Encounter Summary ---
Author Organization [employer] ([place], [place], [place], [place]) Address [address] [place] [address] Care Team Providers Care Technician Name Role Phone Santosh Briones MD Primary Care Provider [phone] Santosh Briones MD Primary Care Provider [phone] Julius Cho MD Unavailable Lew Ross MD Unavailable Karlos Islas PA-C Unavailable [phone] Encounter Details Date Type Department Care Team (Late st Contact Info) Description 07/23/2021 Transcribed Document [facility] [place] Family Medicine [address] [place] [address] ProviderAle MD [address] [place] [address] Social History Tobacco Use Types [...] speak a language other than Azerbaijani at [facility]? No 08/17/2023 Do you want help [...] Sex Assigned at Female 03/19/2022 10:49 AM COLORING ROOM WORKER Legal Sex Female 5:46 PM CDT Gender Identity Female 03/19/2022 10:49 AM COLORING ROOM WORKER Sexual Orientation Not on file COVID-19 Exposure [...] Mendez, RN-ROUNDING Basic Information PCP: Santosh Briones Live In Housekeeper: Dr. 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 hernia repair x2. Cholecystectomy (15730369). breast augmentation. Social History Social & Psychosocial [...] of motion, Normal strength. Integumentary: Warm, Dry, Hood. Neurologic: Alert, Oriented. Psychiatric: Cooperative, Appropriate mood [...] RLE Varithena Electronically signed by Interface, [facility] Conversion Reliability Manager Cerner at 08/22/2022 3:47 PM CDT documented in this encounter Plan of Treatment Not on file documented as of this encounter Visit Diagnoses Not on filedocumented in this encounter Care Teams Technician Relationship Specialty Start Date End Date Santosh Briones MD [address] [facility] [address] [place], [place] [id number] PCP - General General Internal Medicine 04/18/22 04/22/22 Santosh Briones MD [address] [facility] [place] [address] [place] [address] PCP - General General Internal Medicine 04/23/22 Julius Cho MD [address] [place] [address] Referring Physician Internal Medicine 04/23/22 Lew Ross MD [address] [facility] [address] [place] [address] Cardiology 08/13/23 Karlos Islas PA-C [address] [facility] [address] [place] [address] Cardiology 11/23/23 documented as of this encounter
--- OUTSIDE RECORDS SUMMARY | 2024-12-12 12:43 | XMS_ITS | Encounter Summary ---
Author Organization [employer] ([place], [place], [place], [place]) Address [address] [place] [address] Care Team Providers Care Vest Maker Name Role Phone Santosh Santos MD Primary Care Provider [phone] Santosh Santos MD Primary Care Provider [phone] Julius Cho MD Unavailable Nader Wu MD Unavailable Karlos Islas PA-C Unavailable [phone] Encounter Details Date Type Department Care Team (Late st Contact Info) Description 07/23/2021 Transcribed Document [facility] [place] Family Medicine [address] [place] [address] ProviderAle MD [address] [place] [address] Social History Tobacco Use Types [...] Do you speak a language other than Nauruan at [facility]? No 08/17/2023 Do you want help [...] Sex Assigned at Female 03/19/2022 10:49 AM LITHOPONE CHARGER Legal Sex Female 5:46 PM CDT Gender Identity Female 03/19/2022 10:49 AM LITHOPONE CHARGER Sexual Orientation Not on file COVID-19 Exposure Response Date Recorded In the last 10 days, have yo u been in contact with someone who was confirmed or suspected to have Coronavirus/COVID-19? No / Unsure 07/17/2022 7:53 AM EDT documented as of this encounter Miscellaneous Notes * Cerner Conversion Note - Historical Provider, - 07/23/2021 3:25 PM CDT [facility] [address] [place] [id number] JANIS FIGUEREDO :1965 Visit Time:07/23/2021 Your Visit [...] instructed Bring your compression stockings. Where: [address] [facility] [address] [place] [address]- Business (1) Medications What How Much When [...] at home: Medicines ??? Take or apply neqt-bqu-rkuafyr and prescription medicines only as told by [...] cannot use soap and water, use hand snailer. ? Change your bandage as told by [...] provider. Document Revised: 11/30/2018 Document Reviewed: 11/30/2018 [employer] Patient Education ?? 2021 [employer] Moderate Conscious Sedation, Adult, Care After [...] eating solid foods. General instructions ??? Take fqsn-krg-rlvwdil and prescription medicines only as told by [...] provider. Document Revised: 08/17/2020 Document Reviewed: 03/15/2020 [employer] Patient Education ?? 2020 [employer] Emergency Awareness and Preventative Care STROKE [...] Assistance with quitting is available by contacting 8-268-RTYUmakeenaNOW. This is a free resource providing counseling, [...] was given the opportunity to ask questions. Patient/Gill Tender Name: Patient/Gill Tender Signature: Relationship to Patient: Clinician/Hospital Gill Tender Signature: Date: Electronically signed by [facility] Conversion Floor Helper Cerner at 08/22/2022 3:47 PM CDT documented in this encounter Plan of Treatment Not on file documented as of this encounter Visit Diagnoses Not on filedocumented in this encounter Care Teams Vest Maker Relationship Specialty Start Date End Date Santosh Santos MD [address] [facility] [place] [address] PCP - General General Internal Medicine 04/18/22 04/22/22 Santosh Santos MD [address] [place] [address] PCP - General General Internal Medicine 04/23/22 Julius Cho MD [address] [place] [address] Referring Physician Internal Medicine 04/23/22 Nader Wu MD [address] [place] [address] [address] [place] [address] Cardiology 08/13/23 Karlos Islas PA-C [address] [address] [place] [address] Cardiology 11/23/23 documented as of this encounter
--- OUTSIDE RECORDS SUMMARY | 2024-12-12 12:43 | XMS_ITS | Encounter Summary ---
Author Organization [employer] ([place], [place], [place], [place]) Address [address] [place] [address] Care Team Providers Care Photographer Aerial Name Role Phone Santosh Briones MD Primary Care Provider Santosh Briones MD Primary Care Provider [phone] Julius Cho MD Unavailable Lew Ross MD Unavailable Karlos Islas PA-C Unavailable [phone] Encounter Details Date Type Department Care Team (Late st Contact Info) Description 07/24/2021 Transcribed Document [facility] [place] Family Medicine [address] [place] [address] ProviderAle MD [address] [place] [address] Social History Tobacco Use Types [...] Do you speak a language other than Greek at [facility]? No 08/17/2023 Do you want [...] Sex Assigned at Female 03/19/2022 10:49 AM CORRECTIONAL OFFICER CAPTAIN Legal Sex Female 5:46 PM CDT Gender Identity Female 03/19/2022 10:49 AM CORRECTIONAL OFFICER CAPTAIN Sexual Orientation Not on file COVID-19 Exposure [...] - 07/24/2021 13:18 EDT Electronically signed by [facility] Conversion Drier And Pulverizer Tender Cerner at 08/22/2022 3:57 PM CDT documented in this encounter Plan of Treatment Not on file documented as of this encounter Visit Diagnoses Not on filedocumented in this encounter Care Teams Photographer Aerial Relationship Specialty Start Date End Date Santosh Briones MD [address] [facility] [address] [place], [place] [id number] PCP - General General Internal Medicine 04/18/22 04/22/22 Santosh Briones MD [address] [facility] [address] [place], [place] [address] PCP - General General Internal Medicine 04/23/22 Julius Cho MD [address] [place] [address] Referring Physician Internal Medicine 04/23/22 Lew Ross MD [address] [facility] [address] [place] [address] Cardiology 08/13/23 Karlos Islas PA-C [address] [place] [address] Cardiology 11/23/23 documented as of this encounter
--- OUTSIDE RECORDS SUMMARY | 2024-12-12 12:43 | XMS_ITS | Encounter Summary ---
Author Organization [employer] ([place], [place], [place], [place]) Address [address] [place] [address] Care Team Providers Care Donation Worker Name Role Phone Santosh Briones MD Primary Care Provider [phone] Santosh Briones MD Primary Care Provider [phone] Julius Cho MD Unavailable Lew Ross MD Unavailable Karlos Islas PA-C Unavailable [phone] Encounter Details Date Type Department Care Team (Late st Contact Info) Description 12/19/2020 Transcribed Document [facility] [place] Family Medicine [facility] [place] [address] Ale Johnson MD [address] [place] [address] Social History Tobacco Use Types Packs/Day Years Used Date Smoking Tobacco: Never Assessed Comments Unknown Sex and Gender Information Value Date Recorded Sex Assigned at Female 03/19/2022 10:49 AM SCRIPT WRITER Legal Sex Female 5:46 PM CDT Gender Identity Female 03/19/2022 10:49 AM SCRIPT WRITER Sexual Orientation Not on file documented as of this encounter Miscellaneous Notes * Cerner Conversion Note - Ale ProviderMD - 12/19/2020 8:35 AM CDT [facility] Main OR IntraOp Summary Primary Physician: MEE TUCKER, DPM-POD Finalized Date/Time: 12/21/20 10:05:58 Pt. Name: JANIS FIGUEREDO BILLIE Sands/Sex: 1965 Female [facility] Rec #: [id number] Physician: MEE TUCKER, DPM-POD Financial #: [id number] Pt. Type: O Room/Bed: /9 Admit/Disch: 12/19/20 06:32:00 - 12/19/20 12:11:00 Institution: [facility] IntraOp Case Attendance Entry 1 Entry 2 Entry 3 Case Attendee MEE TUCKER BOWEN, JON B, MD-YVETTE ROSEN APRN DPM-POD Role Performed Surgeon/Proceduralist, Anesthesiologist of [facility]/Nurse Lehr Operator First Record Time In 12/19/20 07:55:00 12/19/20 [...] Julienne Atkins Rn Poe, Kali, Letitia Reese, Irrigator Role Performed Manager Strategy & Account, First Manager Strategy & Account, Second Scrub, First Time In 12/19/20 07:55:00 [...] Attendee ROBERTO BELCHER RN Role Performed Manager Strategy & Account, First Time In 12/19/20 09:45:00 Time Out 12/19/20 10:03:00 Procedure Achilles Tendon Repair(Right), Bone Spur Excision Other Attendee BREAK Superficial Wound Closed By: Last Modified By: Julienne Atkins Rn 12/19/20 10:28:51 [facility] IntraOp Case Attendance Audit 12/19/20 10:28:51 Vp Revenue Cycle: [id number] Modifier: [id number] 1 <+> Time Out 1 <*> Procedure [...] Tendon Repair(Right), Bone Spur Excision 12/19/20 10:03:51 Vp Revenue Cycle: [id number] Modifier: [id number] 7 <+> Time Out 7 <*> Procedure Achilles Tendon Repair(Right), Bone Spur Excision 12/19/20 09:47:32 Vp Revenue Cycle: [id number] Modifier: [id number] 1 <*> Procedure Achilles Tendon Repair(Right), Bone [...] Procedure <+> 7 Other Attendee 12/19/20 07:58:46 Vp Revenue Cycle: [id number] Modifier: [id number] <+> 6 Procedure [facility] IntraOp Case Times Entry 1 Patient In Room Time 12/19/20 07:55:00 Out Room Time 12/19/20 10:23:00 Anesthesia Start Time 12/19/20 07:55:00 Stop Time 12/19/20 10:23:00 Surgery / Procedure Times Start Time 12/19/20 08:35:00 Stop Time 12/19/20 10:16:00 Last Modified By: Julienne Atkins Rn 12/19/20 10:28:41 [facility] IntraOp Case Times Audit 12/19/20 10:28:41 Vp Revenue Cycle: [id number] Modifier: [id number] <+> 1 Out Room Time <+> 1 Stop Time <+> 1 Stop Time 12/19/20 08:37:30 Vp Revenue Cycle: [id number] Modifier: [id number] <+> 1 Start Time [facility] IntraOp Cautery Entry 1 ESU Identification Cautery Type Monopolar ESU ID Number [id number] ID Type Hospital Number Cautery Settings Cut [...] Modified By: Julienne Atkins Rn 12/19/20 07:59:56 [facility] IntraOp Communication Entry 1 Communication To Family/Significant other Communication By Domingo Conklin RN Date and Time 12/19/20 08:37:00 Last Modified By: Julienne Atkins Rn 12/19/20 08:37:40 [facility] IntraOp Counts Verification Entry 1 Procedure Achilles Tendon Repair(Right), Bone Spur Excision Count Info Count Type Sponge, Sharps Counts Verification Baseline/pre-procedure Sequence Count Results Not Applicable Counts Performed By Count Performed By Letitia Washington (Scrub) Irrigator Count Performed By Domingo Conklin RN (RN) Last Modified By: Julienne Atkins Rn 12/19/20 08:00:18 [facility] IntraOp Counts Final Entry 1 Procedure Achilles Tendon Repair(Right), Bone Spur Excision Final Count Info Count Type Sponge, Sharps Counts Verification Skin Closure/end of Sequence procedure Count Results Correct, surgeon notified Counts Performed By Count Performed By Letitia Washington (Scrub) Irrigator Count Performed By Julienne Atkins Rn (RN) Last Modified By: Julienne Atkins Rn 12/19/20 10:05:43 [facility] IntraOp Cultures and Spec Summary Entry 1 Cultrures and Specimens Specimen Ordered: Yes Test(s) Routine/Path-Lab Requested/Final Disposition Last Modified By: Julienne Atkins Rn 12/19/20 09:32:55 General Comments: A. RIGHT FOOT BONE [facility] IntraOp Delays Entry 1 Delay Reason Patient, other (document in comment) Duration 25 Minute(s) Comment PATIENT GETTING NERVE BLOCK Last Modified By: Julienne Atkins Rn 12/19/20 08:00:49 [facility] IntraOp Departure from OR Entry 1 Integumentary Assessment Integumentary WDL Assessment WDL Transfer/Handoff Transfer to PACU Phase I Handoff Method Bedside/Face to face, Phone call Post-op Transport Stretcher/Gurney Via Patient Transport YVETTE CEJA, Accompanied by Wilbert CLEVELAND Tracy R, Rn, Domingo Conklin RN Last Modified By: Julienne Atkins Rn 12/19/20 08:01:04 [facility] IntraOp Drains and Tubes Entry 1 Device Type Dane Size 1/4 Drain/Tube Activity Inserted Drain/Tube Suction Eldena Drain/Tube Drainage Red Device Location RIGHT LOWER LEG Method of Drainage Eldena Last Modified By: Julienne Atkins Rn 12/19/20 08:49:09 [facility] IntraOp Dressing and Packing Entry 1 Type Dressing Location RIGHT FOOT Wound Dressing Item 4x4's, Kerlix/Janie, Johnnie, Other Applied By MEE TUCKER, DPOswald-POD Other Comments SILVER DRESSING Last Modified By: Julienne Atkins Rn 12/19/20 10:05:02 [facility] IntraOp Dressing and Packing Audit 12/19/20 10:05:02 Vp Revenue Cycle: [id number] Modifier: [id number] 1 <*> Wound Dressing Item 4x4's, Kerlix/Janie, Johnnei 1 <+> Applied By 1 <*> Other Comments ACTICOAT [facility] IntraOp Fire Risk Assessment Entry 1 [...] Modified By: Julienne Atkins Rn 12/19/20 08:01:48 [facility] IntraOp General Case Steel Layer 1 Case Information OR OR 02 [facility] Case Level 1 Room Verified Yes Wound Class I - Clean Specialty Podiatry Anesthesia Type General ASA Class 3 Diagnosis Preop Diagnosis RIGHT ACHILLES INJURY Postop Same As Preop No Postop Diagnosis SEE MD NOTES Last Modified By: Julienne Atkins Rn 12/19/20 08:02:15 [facility] IntraOp Implant Log Entry 1 Entry 2 Entry 3 Type Tissue Implant Implant (Synthetic) Implant (Synthetic) (Biologic) Implant Log Implant Type Hardware Hardware Tissue Implant Type Tissue Implant IMP STRAVIX [id number] ARTHREX ANCHOR KT IB PLUS BC W/CC FT Identification [id number] Description Implant Quantity 1 2 1 Implant Site RIGHT ANKLE RIGHT FOOT RIGHT FOOT Implant Identification Model Number Implant [id number] Identification Serial Number Implant [id number] Identification Lot Number Implant [employer] ARTHREX Arthrex Identification Risk Officer Name: Implant [id number] Identification Catalog Number Implant Size Implant Has an Yes Yes Yes Expiration Date Implant Expiration 04/13/23 08/01/22 07/01/22 Date Wasted Radioactive Material Time Implanted Tissue Implant Continue for Tissue Implant Documentation Tissue Identification Number Graft Prep Per Yes Risk Officer Instructions: Tissue Preparation N/A Method: Reconstitution Solution: Reconstitution Solution Lot Number Reconstitution Solution Expiration Date: Thawing Solution Thawing Solution Lot Number Thawing Solution Expiration Date Preparation Materials, Other Preparation Materials, Other Lot Number Preparation Materials, Other Expiration Date MEE Ash, Prepared/Processed DPM-POD By Risk Officer Yes Paperwork Completed Implant Type Comment Last Modified By: Julienne Atkins Rn Compton, Tracy R, Rn Compton, Tracy R, Rn 12/19/20 09:32:32 12/19/20 09:32:32 12/19/20 09:32:32 Entry 4 Type Implant (Synthetic) Implant Log Implant Type Tissue Implant Type Implant ARTHREX SUTURE TAPE REF Identification [id number] Description Implant Quantity 1 Implant Site OPSITE Implant Identification Model Number Implant Identification Serial Number Implant [id number] Identification Lot Number Implant Identification Risk Officer Name: Implant Identification Catalog Number Implant Size Implant Has an Yes Expiration Date Implant Expiration 08/31/25 Date Wasted Radioactive Material Time Implanted Tissue Implant Continue for Tissue Implant Documentation Tissue Identification Number Graft Prep Per Risk Officer Instructions: Tissue Preparation Method: Reconstitution Solution: Reconstitution Solution Lot Number Reconstitution Solution Expiration Date: Thawing Solution Thawing Solution Lot Number Thawing Solution Expiration Date Preparation Materials, Other Preparation Materials, Other Lot Number Preparation Materials, Other Expiration Date Tissue Prepared/Processed By Risk Officer Paperwork Completed Implant Type Comment Last Modified By: Julienne Atkins Rn 12/19/20 10:03:35 [facility] IntraOp Implant Log Audit 12/19/20 10:03:35 Vp Revenue Cycle: [id number] Modifier: [id number] <+> 4 Implant Identification Description <+> 4 Implant Identification Lot Number <+> 4 Implant Expiration Date <+> 4 Implant Site <+> 4 Implant Quantity <+> 4 Implant Has an Expiration Date <+> 4 Type [facility] IntraOp Intraoperative Assessment Entry 1 Handoff [...] Modified By: Julienne Atkins Rn 12/19/20 08:03:12 [facility] IntraOp Intraoperative Equipment Entry 1 Type Equipment Equipment Equipment Yumi Suction System ID Number [id number] Setting ON Intraop Monitoring Blood Pressure Non-Invasive BP Device Source Antiembolic Devices Scopes Photo/Video Documentation Last Modified By: Julienne Atkins Rn 12/19/20 08:03:54 [facility] IntraOp Medication Admin Entry 1 Medication/Irrigant LAILA IRR NACL 0.9PCT 2000ML [facility]-[id number] Time Administered 12/19/20 08:35:00 Route of IRRIGATION Administration Dose Administered By MEE TUCKER DPOswald-POD Procedure Irrigation Last Modified By: Julienne Atkins Rn 12/19/20 09:04:22 [facility] IntraOp Medication Admin Audit 12/19/20 09:04:22 Vp Revenue Cycle: [id number] Modifier: [id number] 1 <*> Medication/Irrigant LAILA IRR NACL 0.9PCT 2000ML [facility]-[id number] 1 <+> Time Administered [facility] IntraOp Patient Positioning Entry 1 Procedure [...] Modified By: Julienne Atkins Rn 12/19/20 08:05:17 [facility] IntraOp Sign In Entry 1 Patient, [...] Modified By: Julienne Atkins Rn 12/19/20 08:05:29 [facility] IntraOp Sign Out Entry 1 RN [...] Modified By: Julienne Atkins Rn 12/19/20 10:28:48 [facility] IntraOp Sign Out Audit 12/19/20 10:28:48 Vp Revenue Cycle: [id number] Modifier: [id number] <+> 1 RN Sign Out Signature Date/Time [facility] IntraOp Skin Prep Entry 1 Procedure Achilles Tendon Repair(Right), Bone Spur Excision Prescribed Yes Pre-Surgical Prep Completed Prep Area RIGHT FOOT AND LOWER LEG TO KNEE Intraop Prep Integumentary WDL Assessment WDL Prep Agents Chloraprep Prep by Julienne Atkins Rn Hair Removal Methods No hair removal performed Last Modified By: Julienne Atkins Rn 12/19/20 08:08:22 [facility] IntraOp Surgical Procedures Entry 1 Entry [...] Tracy R, Rn 12/19/20 10:28:50 12/19/20 10:28:50 [facility] IntraOp Surgical Procedures Audit 12/19/20 10:28:50 Vp Revenue Cycle: [id number] Modifier: [id number] <+> 1 Stop <+> 2 Stop [facility] IntraOp Temp Regulation Devices Entry 1 Temp Regulation Temperature Forced Air Warming Regulation Device device, Warm blankets Temperature 852606 Regulation Device Serial/Unit Number Temperature Upper body Regulation Site Temperature Device on Setting Temperature YVETTE CEJA APRN Regulation Device Applied by Last Modified By: Julienne Atkins Rn 12/19/20 08:39:43 [facility] IntraOP Time Out Entry 1 Procedure [...] Modified By: Julienne Atkins Rn 12/19/20 08:38:12 [facility] IntraOp Tourniquet Entry 1 Type Pneumatic Serial/Unit Number [id number] Setting 300 mmHg Pheumatic Yes Tourniquet Checked Per Protocol Placement Thigh, right upper Skin Protection - Yes Padded Under Cuff Applied By Julienne Atkins Rn Removed By MEE TUCKER DPM-POD Times Start Time 12/19/20 08:34:00 Stop Time 12/19/20 10:15:00 Total Time 101 calculated manually (Mins) Last Modified By: Julienne Atkins Rn 12/19/20 10:16:00 [facility] IntraOp Tourniquet Audit 12/19/20 10:16:00 Vp Revenue Cycle: [id number] Modifier: [id number] <+> 1 Total Time calculated manually (Mins) <+> 1 Stop Time Case Comments <None> Finalized By: KENDRA PROCTOR Document Signatures Signed By: Julienne Atkins Rn 12/19/20 10:28 KENDRA PROCTOR 12/20/20 12:08 KENDRA PROCTOR 12/21/20 10:05 Unfinalized History Date/Time Username Reason for Unfinalizing Freetext Reason for Unfinalizing 12/20/20 12:03 [email or web address] Correct Billing 12/21/20 10:05 CHEN Correct Billing Electronically signed by [facility], [facility] Conversion Screen Printer Helper Cerner at 08/22/2022 3:52 PM CDT documented in this encounter Plan of Treatment Not on file documented as of this encounter Visit Diagnoses Not on filedocumented in this encounter Care Teams Donation Worker Relationship Specialty Start Date End Date Santosh Briones MD [address] [place], [place] [id number] PCP - General General Internal Medicine 04/18/22 04/22/22 Santosh Briones MD [address] [place], [place] [id number] PCP - General General Internal Medicine 04/23/22 Julius Cho MD [address] [place] [address] Referring Physician Internal Medicine 04/23/22 Lew Ross MD [address] [facility] [address] [place] [address] Cardiology 08/13/23 Karlos Islas PA-C [address] [facility] [address] [place] [id number] Cardiology 11/23/23 documented as of this encounter
--- OUTSIDE RECORDS SUMMARY | 2024-12-12 12:43 | XMS_ITS | Encounter Summary ---
Author Organization [employer] ([place], [place], [place], [place]) Address [address] [place] [address] Care Team Providers Care Vendor Analyst Name Role Phone Santosh Briones MD Primary Care Provider [phone] Santosh Briones MD Primary Care Provider [phone] Julius Cho MD Unavailable Lew Ross MD Unavailable Karlos Islas PA-C Unavailable [phone] Encounter Details Date Type Department Care Team (Late st Contact Info) Description 07/19/2021 Transcribed Document [facility] [place] [address] [place] [address] ProviderAle MD [address] [place] [address] Social History Tobacco Use Types [...] Do you speak a language other than [place] [facility]? No 08/17/2023 [...] Sex Assigned at Female 03/19/2022 10:49 AM CAUSTIC PLANT WORKER Legal Sex Female 5:46 PM CDT Gender Identity Female 03/19/2022 10:49 AM CAUSTIC PLANT WORKER Sexual Orientation Not on file COVID-19 [...] EDT Performed On: 07/19/2021 6:45 EDT by FIASAL CISNEROS RN Height and Weight, Clinical Dosing Height Source : Stated Height Entry Format : [place] Height, Feet : 5 ft(Converted to: 152 cm, 60 Inch) Height, Inches : 7 Inch(Converted to: 0 ft 7 Inch, 17.78 cm) Clinical Height : 170.18 cm Weight Source : Standing scale Weight Entry Format : [place] Clinical Dosing Weight : 127.27 kg Weight, Pounds : 280 lb Body Surface Area (BSA) : 2.33 m2 Body Mass Index : 43.9 kg/m2 (>HHI) [place] Body Weight : 61 kg FAISAL CISNEROS RN - 07/19/2021 6:45 EDT Health Histories Smoking Status : Never (less than 100 in lifetime; none in last 30 days) Smokeless Tobacco Status : Never Implant/Device Type, Lead Man Over All Dies In Pattern Shop and Model : breast implants IVC filter [...] FAISAL CISNEROS RN - 07/19/2021 6:45 EDT [place] Suicide Severity Rating Scale (C-SSRS) CSSRS Past [...] 07/19/2021 6:45 EDT General Info Support Person/Patient Geophysical Observer : Yes Support Person/Pt Rep Name : Jose Ramon Lorenzana - Support Person/Pt Rep Contact Information : [phone] Want Family/Rep/Phys Notified of Admit : No Emergency Contact #1 : . Emergency Contact #1 Phone Number : . Emergency Contact #1 Relationship : . Emergency Contact #2 : . Emergency Contact #2 Phone Number : . Emergency Contact #2 Relationship : . Primary Language : [place] Communication Barrier : None Religion Department Chair Needed : No FAISAL CISNEROS RN - [...] Scale Risk Level : 25-45 Medium Risk [place] Fall Interventions : Adequate lighting, Assistive devices [...] - 07/19/2021 6:45 EDT Electronically signed by [facility], [facility] Conversion Dipper Machine Operator Cerner at 08/22/2022 3:45 PM CDT documented in this encounter Plan of Treatment Not on file documented as of this encounter Visit Diagnoses Not on filedocumented in this encounter Care Teams Vendor Analyst Relationship Specialty Start Date End Date Santosh Briones MD [address] [place], [place] [id number] PCP - General General Internal Medicine 04/18/22 04/22/22 Santosh Briones MD [address] [place], [place] [id number] PCP - General General Internal Medicine 04/23/22 Julius Cho MD [address] [place] [address] Referring Physician Internal Medicine 04/23/22 Lew Ross MD [address] [facility] [address] [place] [address] Cardiology 08/13/23 Karlos Islas PA-C [address] [facility] [address] [place] [address] Cardiology 11/23/23 documented as of this encounter
--- OUTSIDE RECORDS SUMMARY | 2024-12-12 12:43 | XMS_ITS | Encounter Summary ---
Author Organization [employer] ([place], [place], [place], [place]) Address [address] [place] [address] Care Team Providers Care Icing Maker Name Role Phone Santosh Santos MD Primary Care Provider [phone] Santosh Santos MD Primary Care Provider [phone] Julius Cho MD Unavailable Nader Wu MD Unavailable Karlos Islas PA-C Unavailable [phone] Encounter Details Date Type Department Care Team (Late st Contact Info) Description 07/24/[address] [facility] [place] Family Medicine [address] [place] [address] ProviderAle MD [address] [place] [address] Social History Tobacco Use Types [...] Do you speak a language other than [facility] at [facility]? No 08/17/2023 Do you want [...] Sex Assigned at Female 03/19/2022 10:49 AM ENVELOPE ADJUSTER Legal Sex Female 5:46 PM CDT Gender Identity Female 03/19/2022 10:49 AM ENVELOPE ADJUSTER Sexual Orientation Not on file COVID-19 Exposure Response Date Recorded In the last 10 days, have yo u been in contact with someone who was confirmed or suspected to have Coronavirus/COVID-19? No / Unsure 07/17/2022 7:53 AM EDT documented as of this encounter Miscellaneous Notes * Cerner Conversion Note - Historical Provider, - 07/24/2021 4:25 PM CDT [facility] [address] [place], [place] [id number] JANIS FIGUEREDO :1965 Visit Time:07/24/2021 Your Visit [...] your health care provider and follow the wooden boat builder's instructions that come with the stockings. ??? [...] provider. Document Revised: 08/22/2020 Document Reviewed: 08/22/2020 [employer] Patient Education ?? 2020 [employer]. Wound Infection A wound infection happens when [...] at home: Medicines ??? Take or apply ggpx-rcs-wkmufwm and prescription medicines only as told by [...] cannot use soap and water, use hand cleat blanker. ? Change your bandage as told by [...] provider. Document Revised: 11/30/2018 Document Reviewed: 11/30/2018 [employer] Patient Education ?? 2020 [employer] Moderate Conscious Sedation, Adult, Care After [...] eating solid foods. General instructions ??? Take mavr-ysx-onnsvfj and prescription medicines only as told by [...] provider. Document Revised: 08/17/2020 Document Reviewed: 03/15/2020 [employer] Patient Education ?? 2020 [employer] Emergency Awareness and Preventative Care STROKE [...] Assistance with quitting is available by contacting [phone]. This is a free resource providing counseling, [...] was given the opportunity to ask questions. Patient/Die Repairer Forging Name: Patient/Die Repairer Forging Signature: Relationship to Patient: Clinician/Hospital Die Repairer Forging Signature: Date: Electronically signed by Everardo, [facility] Conversion Proof Machine Operator Cerner at 08/22/2022 3:53 PM CDT documented in this encounter Plan of Treatment Not on file documented as of this encounter Visit Diagnoses Not on filedocumented in this encounter Care Teams Icing Maker Relationship Specialty Start Date End Date Santosh Santos MD [address] [place], [place] [id number] PCP - General General Internal Medicine 04/18/22 04/22/22 Santosh Santos MD [address] [facility] [address] [place], [place] [id number] PCP - General General Internal Medicine 04/23/22 Julius Cho MD [address] [place] [address] Referring Physician Internal Medicine 04/23/22 Nader Wu MD [address] [facility] [address] [place] [address] Cardiology 08/13/23 Karlos Islas PA-C [address] [facility] [address] [place] [address] Cardiology 11/23/23 documented as of this encounter
--- OUTSIDE RECORDS SUMMARY | 2024-12-12 12:43 | XMS_ITS | Referral Summary ---
Author Organization [employer] ([place], [place], [place], [place]) Address [address] [place] [address] Care Team Providers Care Psychiatric Rn Name Role Phone Santosh Briones MD Primary Care Provider [phone] Julius Cho MD Unavailable Lew Ross MD Unavailable Karlos Islas PA-C Unavailable [phone] Allergies Active Allergy Reactions Criticality Noted [...] Isolated 0 08/16 Educational Attainment Answer Date Krik rded Do you speak a language other than Nepalese at [facility]? No 08/17/2023 Do you want help with [...] Sex Assigned at Female 03/19/2022 10:49 AM MANAGER FIRE Legal Sex Female 5:46 PM CDT Gender Identity Female 03/19/2022 10:49 AM MANAGER FIRE Sexual Orientation Not on file Last Filed [...] on file Medical Devices Implanted Type Area Mixed Livestock Farm Worker Device Identifier Shelf Expiration Date Model / Serial / Lot Base Tib 18mm [id number] - [id number] Implanted:Qty : 1 on 04/23/2022 by Massimo Blake, DPM at [facility] IMPLANTS Left: Ankle ARIAS MED GRP:ARIAS MED TECH 03/13/[id number] / / [id number] Stem Mid Tib 16mm [id number] - [id number] Implanted:Qty : 2 on 04/23/2022 by Massimo Blake, DPM at [facility] IMPLANTS Left: Ankle ARIAS MED GRP:ARIAS MED TECH 03/10/[id number] / / [id number] Stem Top Tib 16mm [id number] - [id number] Implanted:Qty : 1 on 04/23/2022 by Massimo Blake, DPM at [facility] IMPLANTS Left: Ankle ARIAS MED GRP:ARIAS MED TECH 05/20/[id number] / / [id number] Cement Bone Smplx Tobra 40gm 6197-9-001 - [id number] Implanted:Qty : 3 on 04/23/2022 by Massimo Blake, DPM at [facility] IMPLANTS Left: Ankle GIUSEPPE:GIUSEPPE ORTHOPAEDICS 08/02/2023 6197-9-001 / / [id number] Tray Tib Sz4 L [id number] - [id number] Implanted:Qty : 1 on 04/23/2022 by Massimo Blake, DPM at [facility] IMPLANTS Left: Ankle ARIAS MED GRP:ARIAS MED TECH 02/20/[id number] / / [id number] Dome Inbone Talar Sulcus Sz 3 - [id number] Implanted:Qty : 1 on 04/23/2022 by Massimo Blake, DPM at [facility] IMPLANTS Left: Ankle ARIAS MED GRP:ARIAS MED TECH 10/31/2028 / / [id number] Insrt Crosslnk Poly Sz3 [id number] - [id number] Implanted:Qty : 1 on 04/23/2022 by Massimo Blake DPM at [facility] IMPLANTS Left: Ankle ARIAS MED GRP:ARIAS MED TECH 02/17/2030 [id number] / / [id number] Stem Talar 10mm [id number] - [id number] Implanted:Qty : 1 on 04/23/2022 by Massimo Blake DPM at [facility] IMPLANTS Left: Ankle ARIAS MED GRP:ARIAS MED TECH 02/16/[id number] / / [id number] Bone Putty Stimulan [facility] 620-005 - [id number] Implanted:Qty : 1 on 08/18/2023 by Massimo Blake DPM at [facility] IMPLANTS Left: Ankle BIOCOMPOSITES 03/03/2026 620-005 / / [id number] Insurance BLUE CROSS/BLUE SHIELD Advance Directives For more information, please contact: [phone] * Full Code (Latest Code Status on [...] 5:35 PM 08/18/2023 5:58 PM Care Teams Psychiatric Rn Relationship Specialty Start Date End Date Santosh Briones MD [address] [place], [place] [id number] PCP - General General Internal Medicine 04/23/22 Julius Cho MD [address] [place] [address] Referring Physician Internal Medicine 04/23/22 Lew Ross MD [address] [facility] [address] [place] [address] Cardiology 08/13/23 Karlos Islas PA-C [address] [place] [address] Cardiology 11/23/23
--- OUTSIDE RECORDS SUMMARY | 2024-12-12 12:43 | XMS_ITS | Encounter Summary ---
Author Organization [employer] ([place], [place], [place], [place]) Address [address] [place] [address] Care Team Providers Care Carbon Capture Power Plant Operator Name Role Phone Santosh Briones MD Primary Care Provider [phone] Santosh Briones MD Primary Care Provider [phone] Julius Cho MD Unavailable Lew Ross MD Unavailable Karlos Islas PA-C Unavailable [phone] Encounter Details Date Type Department Care Team (Late st Contact Info) Description 12/19/2020 Transcribed Document [facility] [place] [address] [place] [address] ProviderAle MD [address] [place] [address] Social History Tobacco Use Types Packs/Day Years Used Date Smoking Tobacco: Never Assessed Comments Unknown Sex and Gender Information Value Date Recorded Sex Assigned at Female 03/19/2022 10:49 AM ASBESTOS CLOTH INSPECTOR Legal Sex Female 5:46 PM CDT Gender Identity Female 03/19/2022 10:49 AM ASBESTOS CLOTH INSPECTOR Sexual Orientation Not on file documented as of this encounter Miscellaneous Notes * Cerner Conversion Note - Ale ProviderMD - 12/19/2020 3:48 PM CDT DATE OF PROCEDURE: 12/19/2020 1965 SURGEON: Massimo Blake DPM ENDOSCOPY SPECIALTY TECHNICIAN: None. PREOPERATIVE DIAGNOSES: Right Achilles tendon tear; [...] nylon 2-0, Vicryl 2-0, Arthrex anchors x4. [place] drain. Graft Info: We used a 2 [...] We will continue to follow this patient. /[id number] YONG Enciso/JALEEL / BMLizbet / MODL /[id number] documented in this encounter Plan of Treatment Not on file documented as of this encounter Visit Diagnoses Not on filedocumented in this encounter Care Teams Carbon Capture Power Plant Operator Relationship Specialty Start Date End Date Santosh Briones MD [address] [place], [place] [id number] PCP - General General Internal Medicine 04/18/22 04/22/22 Santosh Briones MD [address] [facility] [address] [place], [place] [address] PCP - General General Internal Medicine 04/23/22 Julius Cho MD [address] [address] Referring Physician Internal Medicine 04/23/22 Lew Ross MD [address] [facility] [address] [place] [address] Cardiology 08/13/23 Karlos Islas PA-C [address] [facility], [facility] [address] [place] [address] Cardiology 11/23/23 documented as of this encounter
--- OUTSIDE RECORDS SUMMARY | 2024-12-12 12:43 | XMS_ITS | Encounter Summary ---
Author Organization [employer] ([place], [place], [place], [place]) Address [address] [address] Care Team Providers Care Manager Application Name Role Phone Santosh Briones MD Primary Care Provider [phone] Santosh Briones MD Primary Care Provider Julius Cho MD Unavailable Lew Ross MD Unavailable Karlos Islas PA-C Unavailable [phone] Encounter Details Date Type Department Care Team (Late st Contact Info) Description 07/22/2021 Transcribed Document [facility] [place] [address] [place] [address] ProviderAle MD [address] [place] [address] Social History Tobacco Use Types [...] Do you speak a language other than Equatorial [place]inean at [facility]? No 08/17/2023 [...] Sex Assigned at Female 03/19/2022 10:49 AM RELATIONSHIP SPECIALIST Legal Sex Female 5:46 PM CDT Gender Identity Female 03/19/2022 10:49 AM RELATIONSHIP SPECIALIST Sexual Orientation Not on file COVID-19 [...] On: 07/22/2021 16:34 EDT by Delisa Brothers coal sample tester Documentation Discharge Date/Time : 07/22/2021 17:40 EDT [...] - 07/22/2021 16:34 EDT Electronically signed by [facility] Conversion Bridge Inspector Cerner at 08/22/2022 4:09 PM CDT documented in this encounter Plan of Treatment Not on file documented as of this encounter Visit Diagnoses Not on filedocumented in this encounter Care Teams Manager Application Relationship Specialty Start Date End Date Santosh Briones MD [address] [facility] [address] [place], [place] [address] PCP - General General Internal Medicine 04/18/22 04/22/22 Santosh Briones MD [address] [facility] [address] [place], [place] [address] PCP - General General Internal Medicine 04/23/22 Julius Cho MD [address] [place] [address] Referring Physician Internal Medicine 04/23/22 Lew Ross MD [address] [facility] [address] [place] [address] Cardiology 08/13/23 Karlos Islas PA-C [address] [facility] [place] [address] Cardiology 11/23/23 documented as of this encounter
--- OUTSIDE RECORDS SUMMARY | 2024-12-12 12:43 | XMS_ITS | Encounter Summary ---
Author Organization [employer] ([place], [place], [place], [place]) Address [address] [place] [address] Care Team Providers Care Rn Peritoneal Dialysis Name Role Phone Santosh Briones MD Primary Care Provider [phone] Santosh Briones MD Primary Care Provider [phone] Julius Cho MD Unavailable Lew Ross MD Unavailable Karlos Islas PA-C Unavailable [phone] Encounter Details Date Type Department Care Team (Late st Contact Info) Description 08/02/2021 Transcribed Document [facility] [address] [place] [address] ProviderAle MD [address] [place] [address] Social History Tobacco Use Types [...] Do you speak a language other than Central African at [facility]? No 08/17/2023 Do you want help with [...] Sex Assigned at Female 03/19/2022 10:49 AM METAL BONDING ASSEMBLER Legal Sex Female 5:46 PM CDT Gender Identity Female 03/19/2022 10:49 AM METAL BONDING ASSEMBLER Sexual Orientation Not on file COVID-19 [...] Physical performed by Dr Hackett Lin on 82-20-11 has been reviewed, patient was examined, and no change has occurred since the History and Physical was completed. OR UPDATE: The History and Physical performed by on has been reviewed and patient examined. The only significant change(s) in the patient's history or condition since the History and Physical was completed are indicated below: Significant Changes: Electronically signed by Interface, [facility] Conversion Automatic Winder Operator Cerner at 08/22/2022 3:57 PM CDT documented in this encounter Plan of Treatment Not on file documented as of this encounter Visit Diagnoses Not on filedocumented in this encounter Care Teams Rn Peritoneal Dialysis Relationship Specialty Start Date End Date Santosh Briones MD [address] [facility] [place] [address] PCP - General General Internal Medicine 04/18/22 04/22/22 Santosh Briones MD [address] [facility] [place] [address] PCP - General General Internal Medicine 04/23/22 Julius Cho MD [address] [place] [address] Referring Physician Internal Medicine 04/23/22 Lew Ross MD [address] [facility] [address] [place] [address] Cardiology 08/13/23 Karlos Islas PA-C [address] [place] [address], [facility] [address] [place] [address] Cardiology 11/23/23 documented as of this encounter
--- OUTSIDE RECORDS SUMMARY | 2024-12-12 12:43 | XMS_ITS | Encounter Summary ---
Author Organization [employer] ([place], [place], [place], [place]) Address [address] [place] [address] Care Team Providers Care Vacuum Repairer Name Role Phone Santosh Briones MD Primary Care Provider [phone] Santosh Briones MD Primary Care Provider [phone] Julius Cho MD Unavailable Lew Ross MD Unavailable Karlos Islas PA-C Unavailable [phone] Encounter Details Date Type Department Care Team (Late st Contact Info) Description 07/24/2021 Transcribed Document [facility] [place] [address] [place] [address] ProviderAle MD [address] [place] [address] Social History Tobacco Use Types [...] Do you speak a language other than Brazilian at [facility]? No 08/17/2023 Do you [...] Sex Assigned at Female 03/19/2022 10:49 AM FIRMWARE ENGINEER Legal Sex Female 5:46 PM CDT Gender Identity Female 03/19/2022 10:49 AM FIRMWARE ENGINEER Sexual Orientation Not on file COVID-19 Exposure [...] Source : Stated Height Entry Format : Swift Height, Feet : 5 ft(Converted to: 152 cm, 60 Inch) Height, Inches : 7 Inch(Converted to: 0 ft 7 Inch, 17.78 cm) Clinical Height : 170.18 cm Weight Source : Standing scale Weight Entry Format : Swift Clinical Dosing Weight : 126.82 kg Weight, Pounds : 279 lb Body Surface Area (BSA) : 2.33 m2 Body Mass Index : 43.8 kg/m2 (>HHI) [place] Body Weight : [address] RN - 07/24/2021 12:43 EDT Health Histories Smoking Status : Never (less than 100 in lifetime; none in last 30 days) Smokeless Tobacco Status : Never Implant/Device Type, Ripsaw Grader and Model : breast implants IVC filter [...] OUSMANE LANE RN - 07/24/2021 12:43 EDT [place] Suicide Severity Rating Scale (C-SSRS) CSSRS Past [...] 07/24/2021 12:43 EDT General Info Support Person/Patient Valve Maker : Yes Support Person/Pt Rep Name : Jose Ramon Lorenzana - Support Person/Pt Rep Contact Information : [phone] Want Family/Rep/Phys Notified of Admit : No Emergency Contact #1 : Gopal Jimenez Emergency Contact #1 Emergency Contact #1 Relationship : Brother Emergency Contact #2 : . Emergency Contact #2 Phone Number : . Emergency Contact #2 Relationship : . Primary Language : Brazilian Preferred Communication Mode : Verbal Communication Barrier : None Gravure Printing Machinist Needed : No OUSMANE LANE RN - [...] Scale Risk Level : 0-24 Low Risk [place] Fall Interventions : Adequate lighting, Assistive devices [...] Verbalizes understanding Responsible Adult : Verbalizes understanding UOSMANE LANE RN - 07/24/2021 12:43 EDT Valuables [...] on filedocumented in this encounter Care Teams Vacuum Repairer Relationship Specialty Start Date End Date Santosh Briones MD [address] [facility] [address] PCP - General General Internal Medicine 04/18/22 04/22/22 Santosh Briones MD [address] [place] [address] [place] [address] PCP - General General Internal Medicine 04/23/22 Julius Cho MD [address] [place] [address] Referring Physician Internal Medicine 04/23/22 Lew Ross MD [address] [facility] [address] [place] [address] Cardiology 08/13/23 Karlos Islas PA-C [address] [place] [address] Cardiology 11/23/23 documented as of this encounter
--- OUTSIDE RECORDS SUMMARY | 2024-12-12 12:43 | XMS_ITS | Encounter Summary ---
Author Organization [employer] ([place], [place], [place], [place]) Address [address] [place] [address] Care Team Providers Care Vice President Of Talent Management Name Role Phone Santosh Briones MD Primary Care Provider [phone] Santosh Briones MD Primary Care Provider Julius Cho MD Unavailable Lew Ross MD Unavailable Karlos Islas PA-C Unavailable [phone] Encounter Details Date Type Department Care Team (Late st Contact Info) Description 07/25/2021 Transcribed Document [facility] [place] Family Medicine [address] [place] [address] ProviderAle MD [address] [place] [address] Social History Tobacco Use Types [...] speak a language other than Swiss at [facility]? No 08/17/2023 Do [...] Sex Assigned at Female 03/19/2022 10:49 AM MOBILE MANAGER Legal Sex Female 5:46 PM CDT Gender Identity Female 03/19/2022 10:49 AM MOBILE MANAGER Sexual Orientation Not on file COVID-19 [...] Source : Stated Height Entry Format : [place] Height, Feet : 5 ft(Converted to: 152 cm, 60 Inch) Height, Inches : 7 Inch(Converted to: 0 ft 7 Inch, 17.78 cm) Clinical Height : 170.18 cm Weight Source : Standing scale Weight Entry Format : [place] Clinical Dosing Weight : 126.82 kg Weight, Pounds : 279 lb Body Surface Area (BSA) : 2.33 m2 Body Mass Index : 43.8 kg/m2 (>HHI) [place] Body Weight : 61 kg Archana Teague RN - 07/25/2021 12:16 EDT documented in this encounter Plan of Treatment Not on file documented as of this encounter Visit Diagnoses Not on filedocumented in this encounter Care Teams Vice President Of Talent Management Relationship Specialty Start Date End Date Santosh Briones MD [address] [facility] [address] [place], [place] [id number] PCP - General General Internal Medicine 04/18/22 04/22/22 Santosh Briones MD [address] [facility] [address] [place], [place] [address] PCP - General General Internal Medicine 04/23/22 Julius Cho MD [address] [place] [address] Referring Physician Internal Medicine 04/23/22 Lew Ross MD [address] [facility] [address] [place] [address] Cardiology 08/13/23 Karlos Islas PA-C [address] [place] [address] Cardiology 11/23/23 documented as of this encounter
--- OUTSIDE RECORDS SUMMARY | 2024-12-12 12:43 | XMS_ITS | Encounter Summary ---
Author Organization [employer] ([place], [place], [place], [place]) Address [address] [place] [address] Care Team Providers Care Associate Merchant Name Role Phone Santosh Briones MD Primary Care Provider [phone] Santosh Briones MD Primary Care Provider [phone] Julius Cho MD Unavailable Lew Ross MD Unavailable Karlos Islas PA-C Unavailable [phone] Encounter Details Date Type Department Care Team (Late st Contact Info) Description 07/23/2021 Transcribed Document [facility] [place] Family Medicine [address] [place] [address] ProviderAle MD [address] [place] [address] Social History Tobacco Use Types [...] Do you speak a language other than Dutch at [facility]? No 08/17/2023 Do you [...] Sex Assigned at Female 03/19/2022 10:49 AM INCIDENT MANAGER Legal Sex Female 5:46 PM CDT Gender Identity Female 03/19/2022 10:49 AM INCIDENT MANAGER Sexual Orientation Not on file COVID-19 [...] 07/23/2021 15:12 EDT Electronically signed by [facility] Conversion Relationship Management Lead Cerner at 08/22/2022 3:53 PM CDT documented in this encounter Plan of Treatment Not on file documented as of this encounter Visit Diagnoses Not on filedocumented in this encounter Care Teams Associate Merchant Relationship Specialty Start Date End Date Santosh Briones MD [address] [facility] [address] [place], [place] [id number] PCP - General General Internal Medicine 04/18/22 04/22/22 Santosh Briones MD [address] [facility] [place] [address] PCP - General General Internal Medicine 04/23/22 Julius Cho MD [address] [place] [address] Referring Physician Internal Medicine 04/23/22 Lew Ross MD [address] [facility] [address] [place] [address] Cardiology 08/13/23 Karlos Islas PA-C [address] [place] [address] Cardiology 11/23/23 documented as of this encounter
--- OUTSIDE RECORDS SUMMARY | 2024-12-12 12:43 | XMS_ITS | Encounter Summary ---
Author Organization [employer] ([place], [place], [place], [place]) Address [address] [place] [address] Care Team Providers Care Bat Carrier Name Role Phone Santosh Briones MD Primary Care Provider [phone] Santosh Briones MD Primary Care Provider [phone] Julius Cho MD Unavailable Lew Ross MD Unavailable Karlos Islas PA-C Unavailable [phone] Encounter Details Date Type Department Care Team (Late st Contact Info) Description 12/19/2020 Transcribed Document [facility] [place] [facility] [place] [address] Ale Johnson MD [address] [place] [address] Social History Tobacco Use Types Packs/Day Years Used Date Smoking Tobacco: Never Assessed Comments Unknown Sex and Gender Information Value Date Recorded Sex Assigned at Female 03/19/2022 10:49 AM LUMBER PRESS OPERATOR Legal Sex Female 5:46 PM CDT Gender Identity Female 03/19/2022 10:49 AM LUMBER PRESS OPERATOR Sexual Orientation Not on file documented [...] activities are safe for you. ??? Take nwvw-nsk-npyhqha and prescription medicines only as told by [...] provider. Document Revised: 04/23/2018 Document Reviewed: 12/04/2017 [employer] Patient Education ? 2020 [employer] documented in this encounter Plan of Treatment Not on file documented as of this encounter Visit Diagnoses Not on filedocumented in this encounter Care Teams Bat Carrier Relationship Specialty Start Date End Date Santosh Briones MD [address] [place] [facility] [place] [address] PCP - General General Internal Medicine 04/18/22 04/22/22 Santosh Briones MD [address] [place] [facility] [place] [address] PCP - General General Internal Medicine 04/23/22 Julius Cho MD [address] [place] [address] Referring Physician Internal Medicine 04/23/22 Lew Ross MD [address] [facility] [address] [place] [address] Cardiology 08/13/23 Karlos Islas PA-C [address] [place] [address] [address] [place] [address] Cardiology 11/23/23 documented as of this encounter
--- OUTSIDE RECORDS SUMMARY | 2024-12-12 12:43 | XMS_ITS | Encounter Summary ---
Author Organization [employer] ([place], [place], [place], [place]) Address [address] [place] [address] Care Team Providers Care Oracle Adf Developer Name Role Phone Santosh Briones MD Primary Care Provider [phone] Santosh Briones MD Primary Care Provider [phone] Julius Cho MD Unavailable Lew Ross MD Unavailable Karlos Islas PA-C Unavailable [phone] Encounter Details Date Type Department Care Team (Late st Contact Info) Description 07/23/2021 Transcribed Document [facility] [place] [address] [place] [address] ProviderAle MD [address] [place] [address] Social History Tobacco Use Types [...] Do you speak a language other than [facility] at [facility]? No 08/17/2023 Do you [...] Sex Assigned at Female 03/19/2022 10:49 AM OPERATING SYSTEM DESIGNER Legal Sex Female 5:46 PM CDT Gender Identity Female 03/19/2022 10:49 AM OPERATING SYSTEM DESIGNER Sexual Orientation Not on file COVID-19 Exposure [...] at home: Medicines ??? Take or apply dqbz-ivh-lgvmsxq and prescription medicines only as told by [...] cannot use soap and water, use hand sewer pipe press operator. ? Change your bandage as told [...] provider. Document Revised: 11/30/2018 Document Reviewed: 11/30/2018 [employer] Patient Education ? 2020 [employer] Pharmacology Moderate Conscious Sedation, Adult, Care [...] eating solid foods. General instructions ??? Take bbmn-bhu-sxbewiw and prescription medicines only as told by [...] provider. Document Revised: 08/17/2020 Document Reviewed: 03/15/2020 [employer] Patient Education ? 2020 [employer]. documented in this encounter Plan of Treatment Not on file documented as of this encounter Visit Diagnoses Not on filedocumented in this encounter Care Teams Oracle Adf Developer Relationship Specialty Start Date End Date Santosh Briones MD [address] [facility] [address] [place], [place] [id number] PCP - General General Internal Medicine 04/18/22 04/22/22 Santosh Briones MD [address] [facility] [place] [address] PCP - General General Internal Medicine 04/23/22 Julius Cho MD [address] [place] [address] Referring Physician Internal Medicine 04/23/22 Lew Ross MD [address] [facility] [address] [place] [address] Cardiology 08/13/23 Karlos Islas PA-C [address] [facility] [address] [place] [address] Cardiology 11/23/23 documented as of this encounter
--- OUTSIDE RECORDS SUMMARY | 2024-12-12 12:43 | XMS_ITS | Clinical Summary ---
Author Organization [employer] ([place], [place], [place], [place]) Address [address] [place] [address] Care Team Providers Care Engineering Design Manager Name Role Phone Santosh Briones MD Primary Care Provider [phone] Julius Cho MD Unavailable Lew Ross MD [...] speak a language other than Turkmen at [facility]? No 08/17/2023 Do you want help with [...] Sex Assigned at Female 03/19/2022 10:49 AM POURER BUGGY LADLE Legal Sex Female 5:46 PM CDT Gender Identity Female 03/19/2022 10:49 AM POURER BUGGY LADLE Sexual Orientation Not on file Last Filed [...] Completed 01/28/2024 Medical Devices Implanted Type Area Aoc Airspace Control Officer Device Identifier Shelf Expiration Date Model / Serial / Lot Base Tib 18mm [id number] - [id number] Implanted:Qty : 1 on 04/23/2022 by Massimo Blake DPM at [facility] IMPLANTS Left: Ankle ARIAS MED GRP:ARIAS MED TECH 03/13/[id number] / / [id number] Stem Mid Tib 16mm [id number] - [id number] Implanted:Qty : 2 on 04/23/2022 by Massimo Blake, DPM at [facility] IMPLANTS Left: Ankle ARIAS MED GRP:ARIAS MED TECH 03/10/2030 / / [id number] Stem Top Tib 16mm [id number] - [id number] Implanted:Qty : 1 on 04/23/2022 by Massimo Blake, DPM at [facility] IMPLANTS Left: Ankle ARIAS MED GRP:ARIAS MED TECH 05/20/[id number] / / [id number] Cement Bone Smplx Tobra 40gm 6197-9-001 - [id number] Implanted:Qty : 3 on 04/23/2022 by Massimo Blake, DPM at [facility] IMPLANTS Left: Ankle GIUSEPPE:GIUSEPPE ORTHOPAEDICS 08/02/2023 6197-9-001 / / [id number] Tray Tib Sz4 L [id number] - [id number] Implanted:Qty : 1 on 04/23/2022 by Massimo Blake, DPM at [facility] IMPLANTS Left: Ankle ARIAS MED GRP:ARIAS MED TECH 02/20/[id number] / / [id number] Dome Inbone Talar Sulcus Sz 3 - [id number] Implanted:Qty : 1 on 04/23/2022 by Massimo Blake, DPM at [facility] IMPLANTS Left: Ankle ARIAS MED GRP:ARIAS MED TECH 10/31/20283 / / [id number] Insrt Crosslnk Poly Sz3 [id number] - [id number] Implanted:Qty : 1 on 04/23/2022 by Massimo Blake, DPM at [facility] IMPLANTS Left: Ankle ARIAS MED GRP:ARIAS MED TECH 02/17/[id number] / / [id number] Stem Talar 10mm [id number] - [id number] Implanted:Qty : 1 on 04/23/2022 by Massimo Blake, DPM at [facility] IMPLANTS Left: Ankle ARIAS MED GRP:ARIAS MED TECH 02/16/[id number] / / [id number] Bone Putty Stimulan [facility] 620-005 - [id number] Implanted:Qty : 1 on 08/18/2023 by Massimo Blake DPM at [facility] IMPLANTS Left: Ankle BIOCOMPOSITES 03/03/2026 620-005 / / [id number] Insurance BLUE CROSS/BLUE SHIELD Advance Directives For more information, please contact: [phone] * Full Code (Latest Code Status on [...] 5:35 PM 08/18/2023 5:58 PM Care Teams Engineering Design Manager Relationship Specialty Start Date End Date Santsoh Briones MD [address] [facility] [place] [address] PCP - General General Internal Medicine 04/23/22 Julius Cho MD [address] [place] [address] Referring Physician Internal Medicine 04/23/22 Lew Ross MD [address] [facility] [address] [place] [address] Cardiology 08/13/23 Karlos Islas PA-C [address], [facility] [address] [place] [address] Cardiology 11/23/23
--- OUTSIDE RECORDS SUMMARY | 2024-12-12 12:43 | XMS_ITS | Encounter Summary ---
Author Organization [employer] ([place], [place], [place], [place]) Address [address] [place] [address] Care Team Providers Care Air Press Operator Name Role Phone Santosh Briones MD Primary Care Provider [phone] Santosh Briones MD Primary Care Provider [phone] Julius Cho MD Unavailable Lew Ross MD Unavailable Karlos Islas PA-C Unavailable [phone] Encounter Details Date Type Department Care Team (Late st Contact Info) Description 12/19/2020 Transcribed Document [facility] [place] [facility] [place] [address] Ale Johnson MD [address] [place] [address] Social History Tobacco Use Types Packs/Day Years Used Date Smoking Tobacco: Never Assessed Comments Unknown Sex and Gender Information Value Date Recorded Sex Assigned at Female 03/19/2022 10:49 AM CONSTRUCTION OPERATIONS MANAGER Legal Sex Female 5:46 PM CDT Gender Identity Female 03/19/2022 10:49 AM CONSTRUCTION OPERATIONS MANAGER Sexual Orientation Not on file documented as of this encounter Miscellaneous Notes * Cerner Conversion Note - Ale ProviderMD - 12/19/2020 8:35 AM CDT [facility] Main OR PACU Summary Primary Physician: MEE TUCKER, DPM-POD Finalized Date/Time: 12/21/20 20:53:34 Pt. Name: JANIS FIGUEREDO BILLIE Sands/Sex: 1965 Female Med Rec #: [id number] Physician: MEE TUCKER, DPM-POD Financial #: [id number] Pt. Type: O Room/Bed: Admit/Disch: 12/19/20 06:32:00 - 12/19/20 12:11:00 Institution: [facility] Main OR PACU I Case Times Entry 1 In PACU I 12/19/20 10:25:00 Ready for PACU 12/19/20 11:05:00 Discharge Discharge from PACU 12/19/20 11:08:00 I Last Modified By: Sunshine Rowland RN-PATIENT CARE BEDSIDE NON-EXEMPT 12/19/20 11:55:39 [facility] Main OR PACU Acuity Entry 1 Start Time 12/19/20 11:05:00 Stop Time 12/19/20 11:08:00 Acuity Level [facility] PACU Acuity I Last Modified By: Letitia Dugan Nurse Sales Management Trainee 12/21/20 20:53:32 [facility] Main OR PACU Acuity Audit 12/21/20 20:53:32 Flamer After Lasting: [id number] Modifier: [id number] <*> Start Time 12/19/20 10:25:00 Finalized By: Letitia Dugan Nurse Non Destructive Testing Specialist Signatures Signed By: Sunshine Rowland RN-PATIENT CARE BEDSIDE NON-EXEMPT 12/19/20 11:55 Letitia Dugan Nurse Sales Management Trainee 12/21/20 20:53 Unfinalized History Date/Time Username Reason for Unfinalizing Freetext Reason for Unfinalizing 12/21/20 20:53 [id number] Correct Billing Electronically signed by [facility] Conversion Collection Technician Cerner at 08/22/2022 3:52 PM CDT documented in this encounter Plan of Treatment Not on file documented as of this encounter Visit Diagnoses Not on filedocumented in this encounter Care Teams Air Press Operator Relationship Specialty Start Date End Date Santosh Briones MD [address] [facility] [place] [address] PCP - General General Internal Medicine 04/18/22 04/22/22 Santosh Briones MD [address] [place] [address] PCP - General General Internal Medicine 04/23/22 Julius Cho MD [address] [place] [address] Referring Physician Internal Medicine 04/23/22 Lew Ross MD [address] [facility] [address] [place] [address] Cardiology 08/13/23 Karlos Islas PA-C [address] [facility], [facility] [address] [place] [address] Cardiology 11/23/23 documented as of this encounter
--- OUTSIDE RECORDS SUMMARY | 2024-12-12 12:43 | XMS_ITS | Encounter Summary ---
Author Organization [employer] ([place], [place], [place], [place]) Address [address] [place] [address] Care Team Providers Care Fur Glosser Name Role Phone Santosh Briones MD Primary Care Provider [phone] Santosh Briones MD Primary Care Provider Julius Cho MD Unavailable Lew Ross MD Unavailable Karlos Islas PA-C Unavailable [phone] Encounter Details Date Type Department Care Team (Late st Contact Info) Description 07/23/2021 Transcribed Document [facility] [place] [address] [place] [address] ProviderAle MD [address] [place] [address] Social History Tobacco Use Types [...] Do you speak a language other than Monegasque at [facility]? No 08/17/2023 Do you want help [...] Sex Assigned at Female 03/19/2022 10:49 AM MECHANIC'S ASSISTANT Legal Sex Female 5:46 PM CDT Gender Identity Female 03/19/2022 10:49 AM MECHANIC'S ASSISTANT Sexual Orientation Not on file COVID-19 [...] Source : Stated Height Entry Format : [place] Height, Feet : 5 ft(Converted to: 152 cm, 60 Inch) Height, Inches : 7 Inch(Converted to: 0 ft 7 Inch, 17.78 cm) Clinical Height : 170.18 cm Weight Source : Standing scale Weight Entry Format : [place] Clinical Dosing Weight : 126.82 kg Weight, Pounds : 279 lb Body Surface Area (BSA) : 2.33 m2 Body Mass Index : 43.8 kg/m2 (>HHI) Admire Body Weight : 61 kg Lisa Prado RN - 07/23/2021 12:48 EDT Electronically signed by [facility] Conversion Leather Goods Maker Cerner at 08/22/2022 4:02 PM CDT documented in this encounter Plan of Treatment Not on file documented as of this encounter Visit Diagnoses Not on filedocumented in this encounter Care Teams Fur Glosser Relationship Specialty Start Date End Date Santosh Briones MD [address] [facility] [address] [place], [place] [id number] PCP - General General Internal Medicine 04/18/22 04/22/22 Santosh Briones MD [address] [facility] [address] [place], [place] [address] PCP - General General Internal Medicine 04/23/22 Julius Cho MD [address] [place] [address] Referring Physician Internal Medicine 04/23/22 Lew Ross MD [address] [facility] [address] [place] [address] Cardiology 08/13/23 Karlos Islas PA-C [address] [place] [address] Cardiology 11/23/23 documented as of this encounter
--- OUTSIDE RECORDS SUMMARY | 2024-12-12 12:44 | XMS_ITS | Encounter Summary ---
Author Organization [employer] ([place], [place], [place], [place]) Address [address] [place] [address] Care Team Providers Care Medical Office Worker Name Role Phone Santosh Briones MD Primary Care Provider [phone] Santosh Briones MD Primary Care Provider [phone] Julius Cho MD Unavailable Lew Ross MD Unavailable Karlos Islas PA-C Unavailable [phone] Encounter Details Date Type Department Care Team (Late st Contact Info) Description 12/14/2020 Transcribed Document [facility] [place] [address] Ale Johnson MD [address] [place] [address] Social History Tobacco Use Types Packs/Day Years Used Date Smoking Tobacco: Never Assessed Comments Unknown Sex and Gender Information Value Date Recorded Sex Assigned at Female 03/19/2022 10:49 AM BUSINESS DEVELOPMENT AGENT Legal Sex Female 5:46 PM CDT Gender Identity Female 03/19/2022 10:49 AM BUSINESS DEVELOPMENT AGENT Sexual Orientation Not on file documented as [...] Source : Measured Height Entry Format : [place] Height, Feet : 5 ft(Converted to: 152 cm, 60 Inch) Height, Inches : 7 Inch(Converted to: 0 ft 7 Inch, 17.78 cm) Clinical Height : 170.18 cm Weight Source : Standing scale Weight Entry Format : [place] Clinical Dosing Weight : 116.82 kg Weight, Pounds : 257 lb Body Surface Area (BSA) : 2.25 m2 Body Mass Index : 40.3 kg/m2 (>HHI) [place] Body Weight : 61 kg PETROS HERNDON RN - 12/17/2020 10:31 EDT Health Histories Smoking Status : Never (less than 100 in lifetime; none in last 30 days) Smokeless Tobacco Status : Never Implant/Device Type, Extermination Inspector and Model : breast implants IVC filter [...] Tru Barkley Rn - 12/14/2020 10:55 EDT [place] Suicide Severity Rating Scale (C-SSRS) CSSRS Past [...] Info Legal Guardian : Spouse Support Person/Patient Wildland Fire Fighter Specialist : Yes Support Person/Pt Rep Name : Jose Ramon Lorenzana - Support Person/Pt Rep Contact Information : [phone] Want Family/Rep/Phys Notified of Admit : No Tru Barkley Rn - 12/14/2020 10:55 EDT Emergency Contact #1 : Jose Ramon Lorenzana Emergency Contact #1 Emergency Contact #1 Relationship : Pérez GilViri - 12/19/2020 6:14 EDT Emergency Contact #2 : ` Emergency Contact #2 Phone Number : ` Emergency Contact #2 Relationship : ` Information Obtained From : Patient Primary Language : Eritrean Communication Barrier : None Juvenile Justice Specialist Needed : No Tru Barkley Rn - [...] filedocumented in this encounter Care Teams Medical Office Worker Relationship Specialty Start Date End Date Santosh Briones MD [address] [place], [place] [address] PCP - General General Internal Medicine 04/18/22 04/22/22 Santohs Briones MD [address] [facility] [address] [place], [place] [address] PCP - General General Internal Medicine 04/23/22 Julius Cho MD [address] [place] [address] Referring Physician Internal Medicine 04/23/22 Lew Ross MD [address] [facility] [address] [place] [address] Cardiology 08/13/23 Karlos Islas PA-C [address] [facility], [facility] [address] [place] [address] Cardiology 11/23/23 documented as of this encounter
--- OUTSIDE RECORDS SUMMARY | 2024-12-12 12:44 | XMS_ITS | Encounter Summary ---
Author Organization [employer] ([place], [place], [place], [place]) Address [address] [place] [address] Care Team Providers Care Control Valve Technician Name Role Phone Santosh Briones MD Primary Care Provider [phone] Santosh Briones MD Primary Care Provider [phone] Julius Cho MD Unavailable Lew Ross MD Unavailable Karlos Islas PA-C Unavailable [phone] Encounter Details Date Type Department Care Team (Late st Contact Info) Description 07/22/2021 Transcribed Document [facility] [place] Family Medicine [address] [place] [address] ProviderAle MD [address] [place] [address] Social History Tobacco Use Types [...] Do you speak a language other than Thai at [facility]? No 08/17/2023 Do you want [...] Sex Assigned at Female 03/19/2022 10:49 AM HAND RUG BRAIDER Legal Sex Female 5:46 PM CDT Gender Identity Female 03/19/2022 10:49 AM HAND RUG BRAIDER Sexual Orientation Not on file COVID-19 Exposure [...] Ministry Provided to : Patient, Family/Significant other Scientology Preference : Muslim ZAKI TORO - 07/22/2021 14:56 EDT Spiritual Assessment Spiritual Assessment Comment/Summary Points : Patient declined asking for advance directive info. Provided spiritual support. Spirital Assessment Comment/Summary Report : SPIRITUAL ASSESSMENT COMMENT/SUMMARY No qualifying data available. ZAKI TORO P - 07/22/2021 14:56 EDT Interventions Advance Directive Information Provided : No Spiritual and Scientology : Spiritual/Scientology support provided ZAKI TORO - 07/22/2021 14:56 EDT Electronically signed by Ever[facility] Conversion Crystalizer Cerner at 08/22/2022 3:52 PM CDT documented in this encounter Plan of Treatment Not on file documented as of this encounter Visit Diagnoses Not on filedocumented in this encounter Care Teams Control Valve Technician Relationship Specialty Start Date End Date Santosh Briones MD [address] [place], [place] [id number] PCP - General General Internal Medicine 04/18/22 04/22/22 Santosh Briones MD [address] [place] [address] [place] [address] PCP - General General Internal Medicine 04/23/22 Julius Cho MD [address] [place] [address] Referring Physician Internal Medicine 04/23/22 Lew Ross MD [address] [facility] [address] [place] [address] Cardiology 08/13/23 Karlos Islas PA-C [address] [place] [address] Cardiology 11/23/23 documented as of this encounter
--- OUTSIDE RECORDS SUMMARY | 2024-12-12 12:44 | XMS_ITS | Encounter Summary ---
Author Organization [employer] ([place], [place], [place], [place]) Address [address] [place] [address] Care Team Providers Care Manager Money Name Role Phone Santosh Santos MD Primary Care Provider [phone] Santosh Santos MD Primary Care Provider [phone] Julius Cho MD Unavailable Nader Wu MD Unavailable Karlos Islas PA-C Unavailable [phone] Encounter Details Date Type Department Care Team (Late st Contact Info) Description 07/19/2021 Transcribed Document [facility] [place] [address] [place] [address] ProviderAle MD [address] [place] [address] Social History Tobacco Use Types [...] language other than Nepalese at [facility]? No 08/17/2023 [...] Assigned at Female 03/19/2022 10:49 AM TIMBER SIZER Legal Sex Female 5:46 PM CDT Gender Identity Female 03/19/2022 10:49 AM TIMBER SIZER Sexual Orientation Not on file COVID-19 Exposure Response Date Recorded In the last 10 days, have yo u been in contact with someone who was confirmed or suspected to have Coronavirus/COVID-19? No / Unsure 07/17/2022 7:53 AM EDT documented as of this encounter Miscellaneous Notes * Cerner Conversion Note - Historical Provider, - 07/19/2021 9:32 AM CDT [facility] [address] [place], [place] [id number] JANIS FIGUEREDO :1965 Visit Time:07/19/2021 Your Visit [...] at home: Medicines ??? Take or apply jpch-upi-rwblcws and prescription medicines only as told by [...] cannot use soap and water, use hand tax processor. ? Change your bandage as told by [...] provider. Document Revised: 11/30/2018 Document Reviewed: 11/30/2018 Element [employer] Patient Education ?? 2020 [employer] Moderate Conscious Sedation, Adult, Care After [...] eating solid foods. General instructions ??? Take dgux-yvb-ondjwwq and prescription medicines only as told by [...] Reviewed: 03/15/2020 Elsevier Patient Education ?? 2020 [employer] Emergency Awareness and Preventative Care STROKE [...] Assistance with quitting is available by contacting 8-414-HFCY-NOW. This is a free resource providing counseling, support, and referral. Or you may contact your personal physician. [place] Suicide Prevention Lifeline: The National Suicide Prevention [...] was given the opportunity to ask questions. Patient/Revenue Accountant Name: Patient/Revenue Accountant Signature: Relationship to Patient: Clinician/Hospital Revenue Accountant Signature: Date: Electronically signed by Jeremy Mcgee Conversion Post Anesthesia Care Unit Nurse Cerner at 08/22/2022 4:00 PM CDT documented in this encounter Plan of Treatment Not on file documented as of this encounter Visit Diagnoses Not on filedocumented in this encounter Care Teams Manager Money Relationship Specialty Start Date End Date Santosh Santos MD [address] [facility] [place] [address] PCP - General General Internal Medicine 04/18/22 04/22/22 Santosh Santos MD [address] [facility] [place] [address] PCP - General General Internal Medicine 04/23/22 Julius Cho MD [address] [place] [address] Referring Physician Internal Medicine 04/23/22 Nader Wu MD [address] [facility] [address] [place] [address] Cardiology 08/13/23 Karlos Islas PA-C [address] [facility] [place] [address] Cardiology 11/23/23 documented as of this encounter
--- OUTSIDE RECORDS SUMMARY | 2024-12-12 12:44 | XMS_ITS | Clinical Summary ---
Author Organization [facility] Address [address] [place] [address] Care Team Providers Care Software Engineer Intern Name Role Phone Santosh Briones MD Primary Care Provider [phone] Social History Tobacco Use Types Packs/Day Years [...] 2013 UKY-Zoster Vaccines (1 of 2) 2013 ETC-[id number]-77 Vaccine (5 - season) 2024 10/29/2021, 02/01/2021, [...] to complete this topic Insurance Care Teams Software Engineer Intern Relationship Specialty Start Date End Date Santosh Briones MD [address] [place] [address] PCP - General 12/31/21
--- OUTSIDE RECORDS SUMMARY | 2024-12-12 12:44 | XMS_ITS | CCD ---
Author Name Interface, [id number] Address [address] [place] [address] Oncology an d Hematology Address [address] [place] [address] Care Team Providers Care Chief Mechanical Officer Name Role Phone Misbah STEWART, Fuentes Unavailable Unavailable Allergies and Adverse Reactions Reason for Visit Medications Problems Social History
--- OUTSIDE RECORDS SUMMARY | 2024-12-12 12:44 | XMS_ITS | Encounter Summary ---
Author Organization [employer] ([place], [place], [place], [place]) Address [address] [place] [address] Care Team Providers Care Yeast Culture Developer Name Role Phone Santosh Santos MD Primary Care Provider [phone] Santosh Santos MD Primary Care Provider [phone] Julius Cho MD Unavailable Nader Wu MD Unavailable Karlos Islas PA-C Unavailable [phone] Encounter Details Date Type Department Care Team (Late st Contact Info) Description 07/22/2021 Transcribed Document [facility] [place] [address] [place] [address] ProviderAle MD [address] [place] [address] Social History Tobacco Use Types [...] speak a language other than Brazilian at [facility]? 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 No / Unsure 07/17/2022 7:53 AM EDT documented as of this encounter Miscellaneous Notes * Cerner Conversion Note - Historical Provider, - 07/22/2021 4:35 PM CDT [facility] [address] [place] [address] JANIS FIGUEREDO :1965 Visit Time:07/22/2021 Your Visit [...] follow-up appointments as previously scheduled. Where: [address] [facility] [address] [place] [address] [facility] (1) Medications What How Much When [...] including vitamins, herbs, eye drops, creams, and bnts-uhd-figxwhx medicines. ??? Any problems you or family [...] tells you to take them. ??? Taking ffwx-ggd-qmbpwgf medicines, vitamins, herbs, and supplements. Eating and [...] provider. Document Revised: 12/29/2018 Document Reviewed: 12/29/2018 [facility] Patient Education ?? 2020 [employer]. Endovenous Ablation, Care After This sheet [...] and water are not available, use hand supervisor commissary production. ? Change your dressing as told by [...] health care provider. General instructions ??? Take dqbv-flt-xxkrehq and prescription medicines only as told by [...] provider. Document Revised: 12/29/2018 Document Reviewed: 12/29/2018 [facility] Patient Education ?? 202 [employer] Moderate Conscious Sedation, Adult, Care After [...] eating solid foods. General instructions ??? Take iybk-skd-xrolwdz and prescription medicines only as told by [...] provider. Document Revised: 08/17/2020 Document Reviewed: 03/15/2020 [facility] Patient Education ?? 2020 [employer] Emergency Awareness and Preventative Care STROKE [...] Assistance with quitting is available by contacting 4-786-LWPJ-NOW. This is a free resource providing counseling, [...] was given the opportunity to ask questions. Patient/Correctional Sergeant Name: Patient/Correctional Sergeant Signature: Relationship to Patient: Clinician/Hospital Correctional Sergeant Signature: Date: documented in this encounter Plan of Treatment Not on file documented as of this encounter Visit Diagnoses Not on filedocumented in this encounter Care Teams Yeast Culture Developer Relationship Specialty Start Date End Date Santosh Santos MD [address] [facility] [address] [place], [place] [address] PCP - General General Internal Medicine 04/18/22 04/22/22 Santosh Santos MD [address] [facility] [address] [place], [place] [address] PCP - General General Internal Medicine 04/23/22 Julius Cho MD [address] [place] [address] Referring Physician Internal Medicine 04/23/22 Nader Wu MD [address] [facility] [address] [place] [address] Cardiology 08/13/23 Karlos Islas PA-C [address] [facility] [place] [facility] [address] [place] [address] Cardiology 11/23/23 documented as of this encounter
--- OUTSIDE RECORDS SUMMARY | 2024-12-12 12:44 | XMS_ITS | Clinical Summary ---
Author Organization [facility] Address [address] [place] [address] Care Team Providers Care Artificial Fly Tier Name Role Phone Santosh Briones MD Primary Care Provider [phone] Social History Tobacco Use Types Packs/Day Years [...] - Td or Tdap) 07/17/2032 023 Insurance * Guarantor: Janis Lorenzana Account Type Relation to Patient Date of Phone Billing Address Personal/Family Self [address] [place] [address] MEDICARE A & B Member Subscriber Plan / Payer (Ef fective 2024-Present) Name:Janis Lorenzana Member ID:[id number] Relation to Subscriber:Self Name:Christie Lorenzanalissette Suero Subscriber ID:[id number] Payer ID:[id number] Group ID:Not on file Type:Not on file Address: [id number] MEDICARE ADVANTAGE HMO NON PAR Care Teams Artificial Fly Tier Relationship Specialty Start Date End Date Santosh Briones MD PCP - General Internal Medicine 02/27/22
--- OUTSIDE RECORDS SUMMARY | 2024-12-12 12:44 | XMS_ITS | Encounter Summary ---
Author Organization [employer] ([place], [place], [place], [place]) Address [address] [place] [address] Care Team Providers Care Traveling Sales Executive Name Role Phone Santosh Briones MD Primary Care Provider [phone] Santosh Briones MD Primary Care Provider [phone] Julius Cho MD Unavailable Lew Ross MD Unavailable Karlos Islas PA-C Unavailable [phone] Encounter Details Date Type Department Care Team (Late st Contact Info) Description 07/22/2021 Transcribed Document [facility] [place] [address] [place] [address] ProviderAle MD [address] [place] [address] Social History Tobacco Use Types [...] a language other than Cook Islander at [facility]? No 08/17/2023 Do you [...] Sex Assigned at Female 03/19/2022 10:49 AM DIRECTOR OF ASSISTED LIVING Legal Sex Female 5:46 PM CDT Gender Identity Female 03/19/2022 10:49 AM DIRECTOR OF ASSISTED LIVING Sexual Orientation Not on file COVID-19 Exposure [...] eating solid foods. General instructions ??? Take qfxa-mqs-qagsnqz and prescription medicines only as told by [...] provider. Document Revised: 08/17/2020 Document Reviewed: 03/15/2020 [employer] Patient Education ? 2020 [employer] Procedures Endovenous Ablation Endovenous ablation is [...] including vitamins, herbs, eye drops, creams, and xzkk-ykz-xsgfxbi medicines. ??? Any problems you or family [...] tells you to take them. ??? Taking vagd-yhr-tfwvpvo medicines, vitamins, herbs, and supplements. Eating and [...] provider. Document Revised: 12/29/2018 Document Reviewed: 12/29/2018 [employer] Patient Education ? 2020 [employer] Endovenous Ablation, Care After This sheet [...] and water are not available, use hand intake worker. ? Change your dressing as told by [...] health care provider. General instructions ??? Take avnk-mtf-mdytozq and prescription medicines only as told by [...] provider. Document Revised: 12/29/2018 Document Reviewed: 12/29/2018 [employer] Patient Education ? 2020 [employer]. documented in this encounter Plan of Treatment Not on file documented as of this encounter Visit Diagnoses Not on filedocumented in this encounter Care Teams Traveling Sales Executive Relationship Specialty Start Date End Date Santosh Briones MD [address] [facility] [address] [place], [place] [id number] PCP - General General Internal Medicine 04/18/22 04/22/22 Santosh Briones MD [address] [facility] [place] [address] [place] [address] PCP - General General Internal Medicine 04/23/22 Julius Cho MD [address] [place] [address] Referring Physician Internal Medicine 04/23/22 Lew Ross MD [address] [facility] [address] [place] [address] Cardiology 08/13/23 Karlos Islas PA-C [address] [place] [address] Cardiology 11/23/23 documented as of this encounter
--- OUTSIDE RECORDS SUMMARY | 2024-12-12 12:44 | XMS_ITS | Encounter Summary ---
Author Organization [employer] ([place], [place], [place], [place]) Address [address] [place] [address] Care Team Providers Care Woodworking Bench Carpenter Name Role Phone Santosh Briones MD Primary Care Provider [phone] Santosh Briones MD Primary Care Provider [phone] Julius Cho MD Unavailable Lew Ross MD Unavailable Karlos Islas PA-C Unavailable [phone] Encounter Details Date Type Department Care Team (Late st Contact Info) Description 07/19/2021 Transcribed Document [facility] [place] [address] [place] [address] ProviderAle MD [address] [place] [address] Social History Tobacco Use Types [...] Do you speak a language other than Senegalese at [facility]? 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 Legal Sex Female 5:46 PM CDT Gender Identity Female 03/19/2022 10:49 AM SWAHILI TEACHER Sexual Orientation Not on file COVID-19 [...] - 07/19/2021 9:32 EDT Electronically signed by [facility] Conversion Foaming Machine Operator Cerner at 08/22/2022 3:59 PM CDT documented in this encounter Plan of Treatment Not on file documented as of this encounter Visit Diagnoses Not on filedocumented in this encounter Care Teams Woodworking Bench Carpenter Relationship Specialty Start Date End Date Santosh Briones MD [address] [place], [place] [id number] PCP - General General Internal Medicine 04/18/22 04/22/22 Santosh Briones MD [address] [facility] [address] [place], [place] [id number] PCP - General General Internal Medicine 04/23/22 Julius Cho MD [address] [place] [address] Referring Physician Internal Medicine 04/23/22 Lew Ross MD [address] [facility] [address] [place] [address] Cardiology 08/13/23 Karlos Islas PA-C [address] [place] [address] Cardiology 11/23/23 documented as of this encounter
--- OUTSIDE RECORDS SUMMARY | 2024-12-12 12:44 | XMS_ITS | Encounter Summary ---
Author Organization [employer] ([place], [place], [place], [place]) Address [address] [place] [address] Care Team Providers Care Director Of Distance Learning Name Role Phone Santosh Briones MD Primary Care Provider [phone] Santosh Briones MD Primary Care Provider [phone] Julius Cho MD Unavailable Lew Ross MD Unavailable Karlos Islas PA-C Unavailable [phone] Encounter Details Date Type Department Care Team (Late st Contact Info) Description 07/22/2021 Transcribed Document [facility] [place] [address] [place] [address] ProviderAle MD [address] [place] [address] Social History Tobacco Use [...] Do you speak a language other than Jamaican at [facility]? No 08/17/2023 Do you want help [...] Sex Assigned at Female 03/19/2022 10:49 AM PHARMACY TECHNICIAN PROGRAM DIRECTOR Legal Sex Female 5:46 PM CDT Gender Identity Female 03/19/2022 10:49 AM PHARMACY TECHNICIAN PROGRAM DIRECTOR Sexual Orientation Not on file COVID-19 [...] Source : Stated Height Entry Format : [place] Height, Feet : 5 ft(Converted to: 152 cm, 60 Inch) Height, Inches : 7 Inch(Converted to: 0 ft 7 Inch, 17.78 cm) Clinical Height : 170.18 cm Weight Source : Standing scale Weight Entry Format : [place] Clinical Dosing Weight : 126.82 kg Weight, Pounds : 279 lb Body Surface Area (BSA) : 2.33 m2 Body Mass Index : 43.8 kg/m2 (>HHI) [place] Body Weight : 61 kg Delisa Brothers RN - 07/22/2021 13:41 EDT Health Histories Smoking Status : Never (less than 100 in lifetime; none in last 30 days) Smokeless Tobacco Status : Never Implant/Device Type, Machine Filler Servicer and Model : breast implants IVC filter [...] Delisa Brothers RN - 07/22/2021 13:41 EDT [place] Suicide Severity Rating Scale (C-SSRS) CSSRS Past [...] RN - 07/22/2021 13:41 EDT Spiritual/Cultural Needs Faith Preference : Latter Day Delisa Brothers RN - 07/22/2021 13:41 EDT [...] Ambulatory Legal Guardian : Mother Support Person/Patient Trouble Lineman : Yes Support Person/Pt Rep Name : Jose Ramon Lorenzana - Support Person/Pt Rep Contact Information : [phone] Want Family/Rep/Phys Notified of Admit : No Emergency Contact #1 : Lalitha Salomón Emergency Contact #1 Emergency Contact #1 Relationship : Mizxdg-fg-inf Emergency Contact #2 : Gopal Jimenez Emergency Contact #2 Emergency Contact #2 Relationship : Brother Information Obtained From : Patient Primary Language : Jamaican Preferred Communication Mode : Verbal Communication Barrier : None Technical Advisor Needed : No Delisa Brothers RN - [...] Scale Risk Level : 0-24 Low Risk [place] Fall Interventions : Adequate lighting, Assistive devices [...] of the form. Electronically signed by Everardo, [facility] Conversion Healthcare Science Specialist Cerner at 08/22/2022 4:03 PM CDT documented in this encounter Plan of Treatment Not on file documented as of this encounter Visit Diagnoses Not on filedocumented in this encounter Care Teams Director Of Distance Learning Relationship Specialty Start Date End Date Santosh Briones MD [address] [place], [place] [id number] PCP - General General Internal Medicine 04/18/22 04/22/22 Santosh Briones MD [address] [place], [place] [id number] PCP - General General Internal Medicine 04/23/22 Julius Cho MD [address] [place] [address] Referring Physician Internal Medicine 04/23/22 Lew Ross MD [address] [facility] [address] [place] [address] Cardiology 08/13/23 Karlos Islas PA-C [address] [facility] [address] [place] [address] Cardiology 11/23/23 documented as of this encounter
[2024-12-12 13:13] LABS: Hematocrit 35.2 % (37.0-47.0); Hemoglobin 10.5 g/dL (12.2-16.2); Immature Granulocytes % 0.2 %; Mean Corpuscular HGB Conc 29.8 g/dL (31.8-35.4); Mean Corpuscular Hemoglobin 25.3 pg (27.0-31.2); Mean Corpuscular Volume 84.8 fl (81-99); Nucleated Red Blood Cells % 0 %; Platelet Count 311 K/mm3 (142-424); Red Blood Count 4.15 M/mm3 (4.20-5.40); Red Cell Distribution Width-SD 45.6 fL; White Blood Count 4.8 K/mm3 (4.8-10.8)
[2024-12-12 13:58] LABS: Total Iron Binding Capacity 328 ug/dL (265-497)
[2024-12-12 14:26] LABS: Ferritin 6.79 ng/ml (11.1-264)
[2024-12-12 15:08] LABS: Hemoglobin A1C 5.6 % (4.0-6.0)
[2024-12-12 15:54] LABS: Vitamin B12 827 pg/mL (239-931)
[2024-12-14 05:22] LABS: Intrinsic Factor Abs, Serum 1.0 AU/mL (0.0-1.1)
== END 2024-12-12 23:59 | disposition home or self-care (01) ==
LOC: LAB 12:41
PROVIDERS: PCP Nurse Practitioner Family; Visit Provider Nurse Practitioner Family
DX: D64.9 Anemia, unspecified (principal); R73.03 Prediabetes
CPT/HCPCS: 36415; 82607; 82728; 83036; 83550; 85025; 86340

== ENCOUNTER 2025-01-10 10:51 | Outpatient (CLI) | payer MEDICARE, SELFPAY ==
--- OUTSIDE RECORDS SUMMARY | 2024-12-30 09:30 | XMS_ITS | Encounter Summary ---
Author Organization [employer] ([place], [place], [place], [place]) Address [address] [place] [address] Care Team Providers Care Sports Teacher Name Role Phone Santosh Briones MD Primary Care Provider [phone] Julius Cho MD Unavailable Lew Ross MD Unavailable Karlos Pringle PA-C Unavailable [phone] Reason for Visit * Reason Comments Follow-up Encounter Details Date Type Department Care Team (Late st Contact Info) Description 12/30/2024 9:30 AM EDT Office Visit [facility] Cardiology [address] [place] [address] Lesly Sanchez, CRISTOFER [address] [place] [id number] Social History Tobacco Use Types Packs/Day Years [...] Do you speak a language other than Indonesian at [facility]? No 08/17/2023 Do you want help [...] Sex Assigned at Female 03/19/2022 10:49 AM CASING MATERIAL WEIGHER Legal Sex Female 5:46 PM CDT Gender Identity Female 03/19/2022 10:49 AM CASING MATERIAL WEIGHER Sexual Orientation Not on file documented as [...] 9:27 AM EDT documented in this encounter Plan of Treatment Upcoming Encounters Date Type Department Care Team (Late st Contact Info) Description 04/06/2025 9:00 AM EST Office Visit [facility] Cardiology [address] [place] [phone] [place] [address] [place] [address] [address] [place] [address] documented as of this encounter Visit Diagnoses Not on filedocumented in this encounter Care Teams Sports Teacher Relationship Specialty Start Date End Date Santosh Briones MD [address] [facility] [address] [place], [place] [id number] PCP - General General Internal Medicine 04/23/22 Julius Cho MD [address] [place] [address] Referring Physician Internal Medicine 04/23/22 Lew Ross MD [address] [place] [address] [address] Cardiology 08/13/23 Karlos Pringle PA-C [address] [place] [address] [address] [place] [address] Cardiology 11/23/23 documented as of this encounter
[2025-01-10 08:58] VITALS: BMI 45.2
--- NOTE | 2025-01-10 11:00 | XR_ITS ---
FINAL REPORT CLINICAL HISTORY: Pre-op, cough COMPARISON: None FINDINGS: PA and lateral views of the chest are obtained. There is no prior exam for comparison. The cardiac and mediastinal silhouettes are within normal limits. The lungs are clear. There is no pleural effusion, pneumothorax, or acute osseous abnormality. IMPRESSION: No radiographic evidence of acute cardiac or pulmonary disease. Reviewed, Interpreted and Dictated by Smiley Bower MD Transcribed by Tiffany Crane Authenticated and [facility]
--- OUTSIDE RECORDS SUMMARY | 2025-01-10 11:11 | XMS_ITS | CCD ---
Author Name Interface, [id number] lity Address [address] [place] [address] Oncology an d Hematology Address [address] [place] [address] Care Team Providers Care Paper Guillotine Operator Name Role Phone Misbah STEWART, Fuentes Unavailable Unavailable Allergies and Adverse Reactions Reason for Visit Medications Problems Social History
--- OUTSIDE RECORDS SUMMARY | 2025-01-10 11:11 | XMS_ITS | Encounter Summary ---
Author Organization [employer] ([place], [place], [place], [place]) Address [address] [place] [address] Care Team Providers Care Supervisor Billposting Name Role Phone Santosh Briones MD Primary Care Provider [phone] Santosh Briones MD Primary Care Provider [phone] Julius Cho MD Unavailable Lew Ross MD Unavailable Karlos Pringle PA-C Unavailable [phone] Encounter Details Date Type Department Care Team (Late st Contact Info) Description 12/19/2020 Transcribed Document [facility] Family Medicine [facility] [place] [address] ProviderAle MD [address] [place] [address] Social History Tobacco Use Types Packs/Day Years Used Date Smoking Tobacco: Never Assessed Comments Unknown Sex and Gender Information Value Date Recorded Sex Assigned at Female 03/19/2022 10:49 AM TREASURY MANAGEMENT SALES CONSULTANT Legal Sex Female 5:46 PM CDT Gender Identity Female 03/19/2022 10:49 AM TREASURY MANAGEMENT SALES CONSULTANT Sexual Orientation Not on file documented as of this encounter Miscellaneous Notes * Cerner Conversion Note - Historical MD Alex - 12/19/2020 11:50 AM CDT [facility] [place] [address] JANIS FIGUEREDO :1965 Visit Time:12/19/2020 What [...] Comments Follow up Thursday as scheduled Where: [address] [place] [address] [address] [place] [address]- Medications What How Much When Instructions Next Dose acetaminophen-oxyCODONE (acetaminophen-oxyCODONE 325 mg-7.5 mg oral tablet) 1 Tablet(s) Oral Every 6 Hours as needed for for pain Pickup at [place] [address] apixaban (Eliquis 5 mg oral tablet) 1 Tablet(s) Oral Two Times A Day atorvastatin (atorvastatin 40 mg oral tablet) 1 Tablet(s) Oral Every Day cephalexin (Keflex 500 mg oral capsule) 1 Capsule(s) Oral Every 8 Hours Duration: 1 Day(s) Pickup at [place] [address] cyanocobalamin (Vitamin B12 1000 mcg oral tablet) [...] for as needed for nausea/vomiting Pickup at [place] [address] Pharmacy Information [place] [address]: [address] [facility] [address] [facility] [phone] Take your medications faithfully. Do NOT skip [...] activities are safe for you. ??? Take [id number] and prescription medicines only as told by [...] provider. Document Revised: 04/23/2018 Document Reviewed: 12/04/2017 [employer] Patient Education ?? 2020 [employer]. Emergency Awareness and Preventative Care STROKE is [...] Assistance with quitting is available by contacting 7-293-LWAPNOW. This is a free resource providing counseling, [...] 3.5 and 5.1 ) Patient Name:JANIS FIGUEREDO BILLIE I have received this information and was given the opportunity to ask questions. Patient/Canoe Builder Name: Patient/Canoe Builder Signature: Relationship to Patient: Clinician/Hospital Canoe Builder Signature: Date: documented in this encounter Plan of Treatment Upcoming Encounters Date Type Department Care Team (Late st Contact Info) Description 04/06/2025 9:00 AM EST Office Visit [facility] Cardiology [address] [place] [phone] [place] [address] [place] [address] [address] documented as of this encounter Visit Diagnoses Not on filedocumented in this encounter Care Teams Supervisor Billposting Relationship Specialty Start Date End Date Santosh Briones MD [address] [place] [address] PCP - General General Internal Medicine 04/18/22 04/22/22 Santosh Briones MD [address] [facility] [place] [address] [place] [address] PCP - General General Internal Medicine 04/23/22 Julius Cho MD [address] [place] [address] Referring Physician Internal Medicine 04/23/22 Lew Ross MD [address] [place] [address] [id number] Cardiology 08/13/23 Karlos Pringle PA-C [address] [facility] [address] [place] [address] Cardiology 11/23/23 documented as of this encounter
--- OUTSIDE RECORDS SUMMARY | 2025-01-10 11:11 | XMS_ITS | Encounter Summary ---
Author Organization [employer] ([place], [place], [place], [place]) Address [address] [place] [address] Care Team Providers Care Electrical Sign Servicer Name Role Phone Santosh Briones MD Primary Care Provider [phone] Santosh Briones MD Primary Care Provider [phone] Julius Cho MD Unavailable Lew Ross MD Unavailable Karlos Pringle PA-C Unavailable [phone] Encounter Details Date Type Department Care Team (Late st Contact Info) Description 12/19/2020 Transcribed Document [facility] Family Medicine Formerly [facility] [address] ProviderAle MD [address] [place] [address] Social History Tobacco Use Types Packs/Day Years Used Date Smoking Tobacco: Never Assessed Comments Unknown Sex and Gender Information Value Date Recorded Sex Assigned at Female 03/19/2022 10:49 AM PRIVATE CLIENT ADVISOR Legal Sex Female 5:46 PM CDT Gender Identity Female 03/19/2022 10:49 AM PRIVATE CLIENT ADVISOR Sexual Orientation Not on file documented as of this encounter Miscellaneous Notes * Cerner Conversion Note - Historical ProviderMD - 12/19/2020 8:35 AM CDT [facility] Main OR IntraOp Summary Primary Physician: MEE TUCKER, DPM-POD Finalized Date/Time: 12/21/20 10:05:58 Pt. Name: JANIS FIGUEREDO BILLIE BandaB./Sex: 1965 Female Med Rec #: [id number] Physician: MEE TUCKER, DPM-POD Financial #: [id number] Pt. Type: O Room/Bed: /9 Admit/Disch: 12/19/20 06:32:00 - 12/19/20 12:11:00 Institution: [facility] IntraOp Case Attendance Entry 1 Entry 2 Entry 3 Case Attendee MEE TUCKER BOWEN, JON B, MD-YVETTE ROSEN APRN DPM-POD Role Performed Surgeon/Proceduralist, Anesthesiologist of REGIONAL MARKETING MANAGER/Nurse Tank Filler First Record Time In 12/19/20 07:55:00 12/19/20 [...] Case Attendee Julienne Atkins Rn Poe, Kali, RN Baker, Amanda S, Medical Services Coordinator Role Performed Certification And Selection Specialist, First Certification And Selection Specialist, Second Scrub, First Time In 12/19/20 07:55:00 12/19/20 07:55:00 12/19/20 07:55:00 Time Out 12/19/20 10:23:00 12/19/20 10:23:00 12/19/20 10:23:00 Procedure Achilles Tendon Achilles Tendon Achilles Tendon Repair(Right), Bone Repair(Right), Bone Repair(Right), Bone Spur Excision Spur Excision Spur Excision Other Attendee Superficial Wound Closed By: Last Modified By: AtkinsJulienne Rn Compton, Tracy R, Rn Compton, Tracy R, Rn 12/19/20 10:28:51 12/19/20 10:28:51 12/19/20 10:28:51 Entry 7 Case Attendee ROBERTO BELCHER RN Role Performed Certification And Selection Specialist, First Time In 12/19/20 09:45:00 Time Out 12/19/20 10:03:00 Procedure Achilles Tendon Repair(Right), Bone Spur Excision Other Attendee BREAK Superficial Wound Closed By: Last Modified By: Julienne Atkins Rn 12/19/20 10:28:51 [facility] IntraOp Case Attendance Audit 12/19/20 10:28:51 Cloth Grader Supervisor: [id number] Modifier: [id number] <+> Time Out 1 <*> Procedure [...] Tendon Repair(Right), Bone Spur Excision 12/19/20 10:03:51 Cloth Grader Supervisor: [id number] Modifier: [id number] <+> Time Out 7 <*> Procedure Achilles Tendon Repair(Right), Bone Spur Excision 12/19/20 09:47:32 Cloth Grader Supervisor: [id number] Modifier: [id number] <*> Procedure Achilles Tendon Repair(Right), Bone [...] Procedure <+> 7 Other Attendee 12/19/20 07:58:46 Cloth Grader Supervisor: [id number] Modifier: [id number] <+> 6 Procedure [facility] IntraOp Case Times Entry 1 Patient In Room Time 12/19/20 07:55:00 Out Room Time 12/19/20 10:23:00 Anesthesia Start Time 12/19/20 07:55:00 Stop Time 12/19/20 10:23:00 Surgery / Procedure Times Start Time 12/19/20 08:35:00 Stop Time 12/19/20 10:16:00 Last Modified By: Julienne Atkins Rn 12/19/20 10:28:41 [facility] IntraOp Case Times Audit 12/19/20 10:28:41 Cloth Grader Supervisor: [id number] Modifier: [id number] <+> 1 Out Room Time <+> 1 Stop Time <+> 1 Stop Time 12/19/20 08:37:30 Cloth Grader Supervisor: [id number] Modifier: [id number] <+> 1 Start Time [facility] IntraOp Cautery Entry 1 ESU Identification Cautery Type Monopolar ESU ID Number [id number] ID Type Hospital Number Cautery Settings Cut [...] Modified By: Julienne Atkins Rn 12/19/20 07:59:56 [facility] IntraOp Communication Entry 1 Communication To Family/Significant other Communication By Domingo Conklin RN Date and Time 12/19/20 08:37:00 Last Modified By: Julienne Atkins Rn 12/19/20 08:37:40 [facility] IntraOp Counts Verification Entry 1 Procedure Achilles Tendon Repair(Right), Bone Spur Excision Count Info Count Type Sponge, Sharps Counts Verification Baseline/pre-procedure Sequence Count Results Not Applicable Counts Performed By Count Performed By Letitia Washington (Scrub) Medical Services Coordinator Count Performed By Domingo Conklin RN (RN) Last Modified By: Julienne Atkins Rn 12/19/20 08:00:18 [facility] IntraOp Counts Final Entry 1 Procedure Achilles Tendon Repair(Right), Bone Spur Excision Final Count Info Count Type Sponge, Sharps Counts Verification Skin Closure/end of Sequence procedure Count Results Correct, surgeon notified Counts Performed By Count Performed By Letitia Washington (Scrub) Medical Services Coordinator Count Performed By Julienne Atkins Rn (RN) Last Modified By: Julienne Atkins Rn 12/19/20 10:05:43 [facility] IntraOp Cultures and Spec Summary Entry 1 Cultrures and Specimens Specimen Ordered: Yes Test(s) Routine/Path-Lab Requested/Final Disposition Last Modified By: Julienne Atkins Rn 12/19/20 09:32:55 General Comments: A. RIGHT FOOT BONE [facility] IntraOp Delays Entry 1 Delay Reason Patient, other (document in comment) Duration 25 Minute(s) Comment PATIENT GETTING NERVE BLOCK Last Modified By: Julienne Atkins Rn 12/19/20 08:00:49 [facility] IntraOp Departure from OR Entry 1 Integumentary Assessment Integumentary WDL Assessment WDL Transfer/Handoff Transfer to PACU Phase I Handoff Method Bedside/Face to face, Phone call Post-op Transport Stretcher/Gurney Via Patient Transport YVETTE CEJA, Accompanied by Wilbert CLEVELAND Tracy R, Viri, Domingo Conklin RN Last Modified By: Julienne Atkins Rn 12/19/20 08:01:04 [facility] IntraOp Drains and Tubes Entry 1 Device Type Dane Size 1/4 Drain/Tube Activity Inserted Drain/Tube Suction [place] Drain/Tube Drainage Red Device Location RIGHT LOWER LEG Method of Drainage [place] Last Modified By: Julienne Atkins Rn 12/19/20 08:49:09 [facility] IntraOp Dressing and Packing Entry 1 Type Dressing Location RIGHT FOOT Wound Dressing Item 4x4's, Kerlix/Janie, Johnnie, Other Applied By MEE TUCKER, DPOswald-POD Other Comments SILVER DRESSING Last Modified By: Julienne Atkins Rn 12/19/20 10:05:02 [facility] IntraOp Dressing and Packing Audit 12/19/20 10:05:02 Cloth Grader Supervisor: [id number] Modifier: [id number] <*> Wound Dressing Item 4x4's, Kerlix/Janie, Johnnie 1 <+> Applied By 1 <*> Other Comments ACTICOAT [facility] IntraOp Fire Risk Assessment Entry 1 [...] Modified By: Julienne Atkins Rn 12/19/20 08:01:48 [facility] IntraOp General Case Area Director Of Home Health Sales 1 Case Information OR OR 02 [facility] Case Level 1 Room Verified Yes Wound Class I - Clean Specialty Podiatry Anesthesia Type General ASA Class 3 Diagnosis Preop Diagnosis RIGHT ACHILLES INJURY Postop Same As Preop No Postop Diagnosis SEE MD NOTES Last Modified By: Julienne Atkins Rn 12/19/20 08:02:15 [facility] IntraOp Implant Log Entry 1 Entry 2 Entry 3 Type Tissue Implant Implant (Synthetic) Implant (Synthetic) (Biologic) Implant Log Implant Type Hardware Hardware Tissue Implant Type Tissue Implant IMP STRAVIX [id number] ARTHREX ANCHOR KT IB PLUS BC W/CC FT Identification [id number] Description Implant Quantity 1 2 1 Implant Site RIGHT ANKLE RIGHT FOOT RIGHT FOOT Implant Identification Model Number Implant [id number] Identification Serial Number Implant [id number] Identification Lot Number Implant [employer] ARTHREX Arthrex Identification Dexigraph Operator Name: Implant [id number] Identification Catalog Number Implant Size Implant Has an Yes Yes Yes Expiration Date Implant Expiration 04/13/23 08/01/22 07/01/22 Date Wasted Radioactive Material Time Implanted Tissue Implant Continue for Tissue Implant Documentation Tissue Identification Number Graft Prep Per Yes Dexigraph Operator Instructions: Tissue Preparation N/A Method: Reconstitution Solution: Reconstitution Solution Lot Number Reconstitution Solution Expiration Date: Thawing Solution Thawing Solution Lot Number Thawing Solution Expiration Date Preparation Materials, Other Preparation Materials, Other Lot Number Preparation Materials, Other Expiration Date MEE Ash, Prepared/Processed DPM-POD By Dexigraph Operator Yes Paperwork Completed Implant Type Comment Last Modified By: AtkinsJulienne Rn Compton, Tracy R, Rn Compton, Tracy R, Rn 12/19/20 09:32:32 12/19/20 09:32:32 12/19/20 09:32:32 Entry 4 Type Implant (Synthetic) Implant Log Implant Type Tissue Implant Type Implant ARTHREX SUTURE TAPE REF Identification [id number] Description Implant Quantity 1 Implant Site OPSITE Implant Identification Model Number Implant Identification Serial Number Implant [id number] Identification Lot Number Implant Identification Dexigraph Operator Name: Implant Identification Catalog Number Implant Size Implant Has an Yes Expiration Date Implant Expiration 08/31/25 Date Wasted Radioactive Material Time Implanted Tissue Implant Continue for Tissue Implant Documentation Tissue Identification Number Graft Prep Per Dexigraph Operator Instructions: Tissue Preparation Method: Reconstitution Solution: Reconstitution Solution Lot Number Reconstitution Solution Expiration Date: Thawing Solution Thawing Solution Lot Number Thawing Solution Expiration Date Preparation Materials, Other Preparation Materials, Other Lot Number Preparation Materials, Other Expiration Date Tissue Prepared/Processed By Dexigraph Operator Paperwork Completed Implant Type Comment Last Modified By: Julienne Atkins Rn 12/19/20 10:03:35 [facility] IntraOp Implant Log Audit 12/19/20 10:03:35 Cloth Grader Supervisor: [id number] Modifier: [id number] <+> 4 Implant Identification Description <+> 4 Implant Identification Lot Number <+> 4 Implant Expiration Date <+> 4 Implant Site <+> 4 Implant Quantity <+> 4 Implant Has an Expiration Date <+> 4 Type [facility] IntraOp Intraoperative Assessment Entry 1 Handoff [...] Modified By: Julienne Atkins Rn 12/19/20 08:03:12 [facility] IntraOp Intraoperative Equipment Entry 1 Type Equipment Equipment Equipment Yumi Suction System ID Number [id number] Setting ON Intraop Monitoring Blood Pressure Non-Invasive BP Device Source Antiembolic Devices Scopes Photo/Video Documentation Last Modified By: Julienne Atkins Rn 12/19/20 08:03:54 [facility] IntraOp Medication Admin Entry 1 Medication/Irrigant LAILA IRR NACL 0.9PCT 2000ML [facility]-[id number] Time Administered 12/19/20 08:35:00 Route of IRRIGATION Administration Dose Administered By MEE TUCKER DPM-POD Procedure Irrigation Last Modified By: Julienne Atkins Rn 12/19/20 09:04:22 [facility] IntraOp Medication Admin Audit 12/19/20 09:04:22 Cloth Grader Supervisor: [id number] Modifier: [id number] <*> Medication/Irrigant LAILA IRR NACL 0.9PCT 2000ML [facility]-[id number] 1 <+> Time Administered [facility] IntraOp Patient Positioning Entry 1 Procedure [...] Safety Strap, Thighs Positioned By MEE TUCKER, SHAHRAMM-POD, YVETTE CEJA APRN, Julienne Atkins, Viri, Domingo Conklin RN Position Verified Positioning Yes Verified by Anesthesia Positioning Yes Verified by Surgeon Last Modified By: Julienne Atkins Rn 12/19/20 08:05:17 [facility] IntraOp Sign In Entry 1 Patient, [...] Modified By: Julienne Atkins Rn 12/19/20 08:05:29 [facility] IntraOp Sign Out Entry 1 RN [...] Modified By: Julienne Atkins Rn 12/19/20 10:28:48 [facility] IntraOp Sign Out Audit 12/19/20 10:28:48 Cloth Grader Supervisor: [id number] Modifier: [id number] <+> 1 RN Sign Out Signature Date/Time [facility] IntraOp Skin Prep Entry 1 Procedure Achilles Tendon Repair(Right), Bone Spur Excision Prescribed Yes Pre-Surgical Prep Completed Prep Area RIGHT FOOT AND LOWER LEG TO KNEE Intraop Prep Integumentary WDL Assessment WDL Prep Agents Chloraprep Prep by Julienne Atkins Rn Hair Removal Methods No hair removal performed Last Modified By: Julienne Atkins Rn 12/19/20 08:08:22 [facility] IntraOp Surgical Procedures Entry 1 Entry [...] Tracy R, Rn 12/19/20 10:28:50 12/19/20 10:28:50 [facility] IntraOp Surgical Procedures Audit 12/19/20 10:28:50 Cloth Grader Supervisor: [id number] Modifier: [id number] <+> 1 Stop <+> 2 Stop [facility] IntraOp Temp Regulation Devices Entry 1 Temp Regulation Temperature Forced Air Warming Regulation Device device, Warm blankets Temperature 310948 Regulation Device Serial/Unit Number Temperature Upper body Regulation Site Temperature Device on Setting Temperature YVETTE CEJA APRN Regulation Device Applied by Last Modified By: Julienne Atkins Rn 12/19/20 08:39:43 [facility] IntraOP Time Out Entry 1 Procedure [...] Modified By: Julienne Atkins Rn 12/19/20 08:38:12 [facility] IntraOp Tourniquet Entry 1 Type Pneumatic Serial/Unit Number [id number] Setting 300 mmHg Pheumatic Yes Tourniquet Checked Per Protocol Placement Thigh, right upper Skin Protection - Yes Padded Under Cuff Applied By Julienne Atkins Rn Removed By MEE TUCKER DPM-POD Times Start Time 12/19/20 08:34:00 Stop Time 12/19/20 10:15:00 Total Time 101 calculated manually (Mins) Last Modified By: Juleinne Atkins Rn 12/19/20 10:16:00 [facility] IntraOp Tourniquet Audit 12/19/20 10:16:00 Cloth Grader Supervisor: [id number] Modifier: [id number] <+> 1 Total Time calculated manually (Mins) <+> 1 Stop Time Case Comments <None> Finalized By: KENDRA PROCTOR Document Signatures Signed By: Julienne Atkins Rn 12/19/20 10:28 KENDRA PROCTOR 12/20/20 12:08 KENDRA PROCTOR 12/21/20 10:05 Unfinalized History Date/Time Username Reason for Unfinalizing Freetext Reason for Unfinalizing 12/20/20 12:03 WATTSDR Correct Billing 12/21/20 10:05 WATTSDR Correct Billing documented in this encounter Plan of Treatment Upcoming Encounters Date Type Department Care Team (Late st Contact Info) Description 04/06/2025 9:00 AM EST Office Visit [facility] Cardiology [address] [place] [address] [place] [address] [place] [address] [address] [place], [place] [id number] documented as of this encounter Visit Diagnoses Not on filedocumented in this encounter Care Teams Electrical Sign Servicer Relationship Specialty Start Date End Date Santosh Briones MD [address] [place], [place] [id number] PCP - General General Internal Medicine 04/18/22 04/22/22 Santosh Briones MD [address] [place], [place] [id number] PCP - General General Internal Medicine 04/23/22 Julius Cho MD [address] [place] [address] Referring Physician Internal Medicine 04/23/22 [place] [address] [place] [address] [address] [place], [place] [id number] Cardiology 08/13/23 Karlos Pringle PA-C [address] [facility], [facility] [address] [place] [address] Cardiology 11/23/23 documented as of this encounter
--- OUTSIDE RECORDS SUMMARY | 2025-01-10 11:11 | XMS_ITS | Encounter Summary ---
Author Organization [employer] ([place], [place], [place], [place]) Address [address] [place] [address] Care Team Providers Care Airport Electrician Name Role Phone Santosh Briones MD Primary Care Provider [phone] Santosh Briones MD Primary Care Provider [phone] Julius Cho MD Unavailable Lew Ross MD Unavailable Karlos Pringle PA-C Unavailable [phone] Encounter Details Date Type Department Care Team (Late st Contact Info) Description 12/19/2020 Transcribed Document [facility] Family [place] [facility] [address] ProviderAle MD [address] [place] [address] Social History Tobacco Use Types Packs/Day Years Used Date Smoking Tobacco: Never Assessed Comments Unknown Sex and Gender Information Value Date Recorded Sex Assigned at Female 03/19/2022 10:49 AM PROCUREMENT INTERNSHIP Legal Sex Female 5:46 PM CDT Gender Identity Female 03/19/2022 10:49 AM PROCUREMENT INTERNSHIP Sexual Orientation Not on file documented as [...] activities are safe for you. ??? Take eoqr-eua-vqjohwd and prescription medicines only as told by [...] provider. Document Revised: 04/23/2018 Document Reviewed: 12/04/2017 jellyfish Patient Education ? 2019 [employer]. documented in this encounter Plan of Treatment Upcoming Encounters Date Type Department Care Team (Late st Contact Info) Description 04/06/2025 9:00 AM EST Office Visit [facility] Cardiology [address] [place] [address] [place] [address] [place] [address] [address] [place] [address] documented as of this encounter Visit Diagnoses Not on filedocumented in this encounter Care Teams Airport Electrician Relationship Specialty Start Date End Date Santosh Briones MD [address] [facility] [address] [place], [place] [id number] PCP - General General Internal Medicine 04/18/22 04/22/22 Santosh Briones MD [address] [place], [place] [id number] PCP - General General Internal Medicine 04/23/22 Julius Cho MD [address] [place] [address] Referring Physician Internal Medicine 04/23/22 Lew Ross MD [address] [facility] [address] [place] [address] Cardiology 08/13/23 Karlos Pringle PA-C [address] [place] [address] Cardiology 11/23/23 documented as of this encounter
--- OUTSIDE RECORDS SUMMARY | 2025-01-10 11:11 | XMS_ITS | Encounter Summary ---
Author Organization [employer] ([place], [place], [place], [place]) Address [address] [place] [address] Care Team Providers Care Pacu Nurse Name Role Phone Santosh Briones MD Primary Care Provider [phone] Santosh Briones MD Primary Care Provider Julius Cho MD Unavailable Lew Ross MD Unavailable Karlos Pringle PA-C Unavailable [phone] Encounter Details Date Type Department Care Team (Late st Contact Info) Description 12/19/2020 Transcribed Document [facility] Family Medicine [facility] [place] [address] ProviderAle MD [address] [place] [address] Social History Tobacco Use Types Packs/Day Years Used Date Smoking Tobacco: Never Assessed Comments Unknown Sex and Gender Information Value Date Recorded Sex Assigned at Female 03/19/2022 10:49 AM PLANNING ASSISTANT Legal Sex Female 5:46 PM CDT Gender Identity Female 03/19/2022 10:49 AM PLANNING ASSISTANT Sexual Orientation Not on file documented as of this encounter Miscellaneous Notes * Cerner Conversion Note - Historical ProviderMD - 12/19/2020 3:48 PM CDT DATE OF PROCEDURE: 12/19/2020 1965 SURGEON: Massimo Blake DPM PROJECT MANAGER FINANCE: None. PREOPERATIVE DIAGNOSES: Right Achilles tendon tear; [...] nylon 2-0, Vicryl 2-0, Arthrex anchors x4. [place] drain. Graft Info: We used a 2 [...] retracted as necessary. We then placed a [place] drain. We closed up the incision with Vicryl after a quarter-inch [place] drain was placed and then we put [...] We will continue to follow this patient. /[id number] Keys YONG Weston/JALEEL / DIONE / MODL /[id number] Electronically signed by Everardo, [facility] Conversion Referral Clerk Cerner at 08/22/2022 4:10 PM CDT documented in this encounter Plan of Treatment Upcoming Encounters Date Type Department Care Team (Late st Contact Info) Description 04/06/2025 9:00 AM EST Office Visit [facility] Cardiology [address] [place], [place] [id number] Lew Ross MD [address] [place] [address] [address] [place] [address] documented as of this encounter Visit Diagnoses Not on filedocumented in this encounter Care Teams Pacu Nurse Relationship Specialty Start Date End Date Santosh Briones MD [address] [place], [place] [id number] PCP - General General Internal Medicine 04/18/22 04/22/22 Santosh Briones MD [address] [place], [place] [id number] PCP - General General Internal Medicine 04/23/22 Julius Cho MD [address] [address] Referring Physician Internal Medicine 04/23/22 Lew Ross MD [address] [place] [address] [address] [place], [place] [id number] Cardiology 08/13/23 Karlos Pringle PA-C [address] [place] [address], [address] [place] [address] Cardiology 11/23/23 documented as of this encounter
--- OUTSIDE RECORDS SUMMARY | 2025-01-10 11:11 | XMS_ITS | Clinical Summary ---
Author Organization [facility] Address [address] [place] [address] Phone Care Team Providers Care Caser Up Name Role Phone Chris Nunn MD [ ] Conditions or Problems Problem Name Problem Code Onset Date Status Entry Date Provider Comment Standard Description Annotate Hx of pulmonary embolism 302438078 (SNOMED CT) 08/25 Resolved 08/25 Natalia Herron H/O: pulmonary embolus Morbid obesity due to excess calories E66.01 (ICD-10-CM ) 08/25 Active 08/25 Natalia Herron Morbid (severe) obesity due to excess calories Benign Essential Hypertension 07237190 (SNOMED CT) 08/25 Active 08/25 Natalia Herron Benign hypertension Candidiasis of vulva and vagina, acute B37.31 (ICD-10-CM ) 09/20 Active 09/20 Natalia Herron Acute candidiasis of vulva and vagina Yeast infection 1265057 (SNOMED CT) 09/20 Inactive 09/20 Chris Nunn MD Mycosis Scleroderma 23046786 (SNOMED CT) 08/25 Active 08/25 Dania Faulkner Systemic sclerosis Personal history of allergy Bactrim 007001639 (SNOMED CT) 08/25 Active 08/25 Dania Faulkner 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 anticoagulan ts 285431593 (SNOMED CT) 08/25 Active 08/25 Dania Faulkner Drug therapy finding Hx of pulmonary embolism 651527526 (SNOMED CT) 08/25 Removed 08/25 Dania Faulkner H/O: pulmonary embolus Presence of left artificial ankle joint 859468362 (SNOMED CT) 08/25 Active 08/25 Dania Faulkner Prosthetic total arthroplasty of ankle Morbid obesity 415479360 (SNOMED CT) 08/25 Inactive 08/25 Dania Faulkner Morbid obesity CAD (coronary artery disease) 87949736 (SNOMED CT) 08/25 Active 08/25 Dania Faulkner Coronary arteriosclerosis Hypertension 28565785 (SNOMED CT) 08/25 Inactive 08/25 Dania Faulkner Hypertensive disorder Chronic ulcer of left ankle, skin layer only 352006089 (SNOMED CT) 08/25 Active 08/25 Dania Faulkner Chronic ulcer of ankle Cellulitis of left lower limb 053866204 (SNOMED CT) 08/20 Active 08/20 Dania Faulkner Cellulitis of leg, excluding foot Chronic osteomyeliti s, left ankle 538186734 (SNOMED CT) 08/20 Active 08/20 Dania Faulkner Chronic osteomyelitis of ankle and/or foot Medications Medication Instructions Start Date Stop Date Generic Name NDC Provider MINOCYCLINE HCL 100 MG TABS Take 1 tablet by mouth once a day minocycline 69661926306 Chris Nunn MD Diflucan 200 mg tablet 1 tablet by mouth once a day as needed for yeast infection fluconazole 11889316068 Chris Nunn MD DOXYCYCLINE HYCLATE 100 MG CAPS 1 capsule by mouth once a day doxycycline hyclate 89172992740 Chris Nunn MD FOLIC ACID 400 MCG TABS Take 2 tablet by mouth once a day folic acid 28155621738 Margaret Bermudez ACETAMINOPHEN 500 MG TABS Take 1 tablet by mouth every six hours as needed acetaminophen 66332409851 Margaret Bermudez NATURAL VITAMIN D-3 125 MCG (5000 UT) TABS Take 1 tablet by mouth once a day cholecalciferol (vitamin d3) 40547196383 Margaret Bermudez ASPIRIN LOW DOSE 81 MG TBEC Take 1 tablet by mouth once a day aspirin 65227977445 Margaret Bermudez FUROSEMIDE 40 MG TABS Take 1 tablet by mouth once a day furosemide 17128893365 Margaret Bermudez apixaban (Eliquis) 5 mg Tab tablet Take 1 tablet by mouth twice a day Eliquis Margaret Bermudez PANTOPRAZOLE SODIUM 40 MG TBEC Take 1 tablet by mouth once a day pantoprazole 41878118168 Margaret Bermudez VITAMIN B-12 1000 MCG TABS Take 1 tablet by mouth once a day cyanocobalamin (vitamin b-12) 86898278833 Margaret Bermudez SACCHAROMYCES BOULARDII 250 MG CAPS Take 1 capsule (250 mg total) by mouth 2 (two) times daily for 7 days. saccharomyces boulardii 00535717167 QIE qieuser PANTOPRAZOLE SODIUM 40 MG TBEC Take 1 tablet (40 mg total) by mouth daily. pantoprazole 78134105546 QIE qieuser FUROSEMIDE 40 MG TABS Take 1 tablet (40 mg total) by mouth daily. furosemide 81668925019 QIE qieuser FOLIC ACID 400 MCG TABS Take 2 tablets (800 mcg total) by mouth daily. folic acid 63990896376 QIE qieuser VITAMIN B-12 1000 MCG TABS Take 1 tablet (1,000 mcg total) by mouth daily. cyanocobalamin (vitamin b-12) 81957017679 QIE qieuser NATURAL VITAMIN D-3 125 MCG (5000 UT) TABS Take 1 tablet (5,000 Units total) by mouth daily. cholecalciferol (vitamin d3) 25732223801 QIE qieuser ASPIRIN LOW DOSE 81 MG TBEC Take 1 tablet (81 mg total) by mouth daily. aspirin 28701403414 QIE qieuser apixaban (Eliquis) 5 mg Tab [...] down for the next 30 min.. alendronate 28709039907 QIE qieuser ACETAMINOPHEN 500 MG TABS Take 1 tablet (500 mg total) by mouth every 6 (six) hours as needed for up to 10 days. acetaminophen 99625511676 QIE qieuser Cubicin RF 500 mg intravenous solution 500mg IV Q24hrs/ OPAT daptomycin 08226358881 Jasmin Proctor RN CEFTRIAXONE SODIUM 2 GM SOLR 2gm IV Q24hrs/ OPAT ceftriaxone 07262615763 Jasmin Proctor RN Medications Administered No information [...] by Automated count Office Visit: Office Visit: rm 2 MEDS REVIEW Done Documenta tion of [...] Procedures Code Procedure Name Date Entry Date CPT-73190 CMP [id number] CBC with Differential 2023 CPT-05838 C- reactive protein CPT-97621 Sedimentation Rate (ESR) 202 08/10/07 CPT-coral Change [...]
--- OUTSIDE RECORDS SUMMARY | 2025-01-10 11:11 | XMS_ITS | Encounter Summary ---
Author Organization [employer] ([place], [place], [place], [place]) Address [address] [place] [address] Care Team Providers Care Psychology Physician Name Role Phone Santosh Briones MD Primary Care Provider [phone] Julius Cho MD Unavailable Lew Ross MD Unavailable Karlos Pringle PA-C Unavailable [phone] Reason for Visit * Reason Onset Date Comments Advice Only 01/10/2025 Encounter Details Date Type Department Care Team (Late st Contact Info) Description 01/10/2025 Telephone [facility] Cardiology [address] [place] [address] Lesly Sanchez, CARDIOLOGY TECHNICIAN [address] [place] [address] Advice Only Social History Tobacco Use Types Packs/Day Years [...] speak a language other than [place]ralt[place] at [facility]? No 08/17/2023 Do [...] Sex Assigned at Female 03/19/2022 10:49 AM EDITORIAL ASSISTANT Legal Sex Female 5:46 PM CDT Gender Identity Female 03/19/2022 10:49 AM EDITORIAL ASSISTANT Sexual Orientation Not on file documented as of this encounter Miscellaneous Notes * Telephone Encounter - Arturo Prather - 01/10/2025 9:21 AM EDT Left detailed message for patient that the last office note where Lesly cleared patient for upcoming procedure 12/30 was faxed over to [facility] if she have any question she can contact our office back * Telephone Encounter - Devorah Fields - 01/10/2025 8:59 AM EDT Patient was calling needing her Cardiac Clearance faxed over to [facility] at [facility] [phone] documented in this encounter Plan of Treatment Upcoming Encounters Date Type Department Care Team (Late st Contact Info) Description 04/06/2025 9:00 AM EST Office Visit [facility] Cardiology [address] [place] [address] Lew Ross MD [address] [place] [address] [id number] documented as of this encounter Visit Diagnoses Not on filedocumented in this encounter Care Teams Psychology Physician Relationship Specialty Start Date End Date Santosh Briones MD [address] [facility] [place] [address] PCP - General General Internal Medicine 04/23/22 Julius Cho MD [address] [place] [address] Referring Physician Internal Medicine 04/23/22 Lew Ross MD [address] [place] [address] [address] Cardiology 08/13/23 Karlos Pringle PA-C [address] [place] [address], [address] [place] [address] Cardiology 11/23/23 documented as of this encounter
--- OUTSIDE RECORDS SUMMARY | 2025-01-10 11:11 | XMS_ITS | Encounter Summary ---
Author Organization [employer] ([place], [place], [place], [place]) Address [address] [place] [address] Care Team Providers Care Manufacturing Controller Name Role Phone Santosh Briones MD Primary Care Provider [phone] Santosh Briones MD Primary Care Provider [phone] Julius Cho MD Unavailable Lew Ross MD Unavailable Karlos Pringle PA-C Unavailable [phone] Encounter Details Date Type Department Care Team (Late st Contact Info) Description 12/19/2020 Transcribed Document [facility] Family Medicine [facility] [place] [address] ProviderAle MD [address] [place] [address] Social History Tobacco Use Types Packs/Day Years Used Date Smoking Tobacco: Never Assessed Comments Unknown Sex and Gender Information Value Date Recorded Sex Assigned at Female 03/19/2022 10:49 AM 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 Name: JANIS FIGUEREDO BILLIE DumontO.B./Sex: 1965 Female Med Rec #: [id number] Physician: MEE TUCKER DPM-POD Financial #: [id number] Pt. Type: O Room/Bed: /9 Admit/Disch: 12/19/20 06:32:00 - 12/19/20 12:11:00 Institution: [facility] Main OR PACU I Case Times Entry 1 In PACU I 12/19/20 10:25:00 Ready for PACU 12/19/20 11:05:00 Discharge Discharge from PACU 12/19/20 11:08:00 I Last Modified By: Sunshine Rowland RN-PATIENT CARE BEDSIDE NON-EXEMPT 12/19/20 11:55:39 [facility] Main OR PACU Acuity Entry 1 Start Time 12/19/20 11:05:00 Stop Time 12/19/20 11:08:00 Acuity Level [facility] PACU Acuity I Last Modified By: Letitia Dugan, Nurse Tire Fabric Inspector 12/21/20 20:53:32 [facility] Main OR PACU Acuity Audit 12/21/20 20:53:32 Architectural Associate: [id number] Modifier: [id number] <*> Start Time 12/19/20 10:25:00 Finalized By: Letitia Dugan, Nurse Digester Cook Signatures Signed By: Sunshine Rowland RN-PATIENT CARE BEDSIDE NON-EXEMPT 12/19/20 11:55 Letitia Dugan, Nurse Tire Fabric Inspector 12/21/20 20:53 Unfinalized History Date/Time Username Reason for Unfinalizing Freetext Reason for Unfinalizing 12/21/20 20:53 [id number] Correct Billing Electronically signed by Everardo [facility] Conversion Aerospace Assembler Cerner at 08/22/2022 3:52 PM CDT documented in this encounter Plan of Treatment Upcoming Encounters Date Type Department Care Team (Late st Contact Info) Description 04/06/2025 9:00 AM EST Office Visit [facility] Cardiology [address] [place] [address] [place] [address] [place] [address] [facility] [facility] [place] [address] documented as of this encounter Visit Diagnoses Not on filedocumented in this encounter Care Teams Manufacturing Controller Relationship Specialty Start Date End Date Santosh Briones MD [address] [place], [place] [address] PCP - General General Internal Medicine 04/18/22 04/22/22 Santosh Briones MD [address] [facility] [address] [place], [place] [address] PCP - General General Internal Medicine 04/23/22 Julius Cho MD [address] [address] Referring Physician Internal Medicine 04/23/22 Lew Ross MD [address] [facility] [address] [place], [place] [address] Cardiology 08/13/23 Karlos Pringle PA-C [address] [facility] [address] [place] [address] Cardiology 11/23/23 documented as of this encounter
--- OUTSIDE RECORDS SUMMARY | 2025-01-10 11:11 | XMS_ITS | Encounter Summary ---
Author Organization [employer] ([place], [place], [place], [place]) Address [address] [place] [address] Care Team Providers Care Dandy Tender Name Role Phone Santosh Briones MD Primary Care Provider Santosh Briones MD Primary Care Provider [phone] Julius Cho MD Unavailable Lew Ross MD Unavailable Karlos Pringle PA-C Unavailable [phone] Encounter Details Date Type Department Care Team (Late st Contact Info) Description 12/19/2020 Transcribed Document [facility] Family Medicine [facility] [place] [address] ProviderAle MD [address] [place] [address] Social History Tobacco Use Types Packs/Day Years Used Date Smoking Tobacco: Never Assessed Comments Unknown Sex and Gender Information Value Date Recorded Sex Assigned at Female 03/19/2022 10:49 AM 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 Name: JANIS FIGUEREDO BILLIE /Sex: 1965 Female Med Rec #: [id number] Physician: MEE TUCKER DPM-POD Financial #: [id number] Pt. Type: O Room/Bed: /9 Admit/Disch: 12/19/20 06:32:00 - Institution: [facility] PreOp Case Times Entry 1 In Preop 12/19/20 05:50:00 Ready for Holding n/a Room Patient Ready for 12/19/20 07:48:00 Surgery Patient Out of Preop 12/19/20 07:52:00 Patient Out of n/a Holding Room Last Modified By: Pérez Gil Rn 12/19/20 07:52:11 [facility] PreOp Case Times Audit 12/19/20 07:52:11 Card Doffer: [id number] Modifier: [id number] <+> 1 Patient Out of Preop <+> 1 Patient Ready for Surgery Finalized By: Pérez Gil, Rn Document Signatures Signed By: Pérez Gil Rn 12/19/20 07:52 Electronically signed by Everardo [facility] Conversion Streets And Buildings Decorator Cerner at 08/22/2022 3:49 PM CDT documented in this encounter Plan of Treatment Upcoming Encounters Date Type Department Care Team (Late st Contact Info) Description 04/06/2025 9:00 AM EST Office Visit [facility] Cardiology [address] [place] [address] Lew Ross MD [address] [place] [address] [address] [place] [address] documented as of this encounter Visit Diagnoses Not on filedocumented in this encounter Care Teams Dandy Tender Relationship Specialty Start Date End Date Santosh Briones MD [address] [place] [address] PCP - General General Internal Medicine 04/18/22 04/22/22 Santosh Briones MD [address] [facility] [place] [address] PCP - General General Internal Medicine 04/23/22 Julius Cho MD [address] [place] [address] Referring Physician Internal Medicine 04/23/22 Lew Ross MD [address] [facility] [address] [place] [address] Cardiology 08/13/23 Karlos Pringle PA-C [address] [place] [address], [facility] [address] [place] [address] Cardiology 11/23/23 documented as of this encounter
--- OUTSIDE RECORDS SUMMARY | 2025-01-10 11:12 | XMS_ITS | Encounter Summary ---
Author Organization [employer] ([place], [place], [place], [place]) Address [address] [place] [address] Care Team Providers Care Trapper Animal Name Role Phone Santosh Briones MD Primary Care Provider [phone] Santosh Briones MD Primary Care Provider [phone] Julius Cho MD Unavailable Lew Ross MD Unavailable Karlos Pringle PA-C Unavailable [phone] Encounter Details Date Type Department Care Team (Late st Contact Info) Description 12/14/2020 Transcribed Document [facility] [place] Family [place] [facility] [place] [address] ProviderAle MD [address] [place] [address] Social History Tobacco Use Types Packs/Day Years Used Date Smoking Tobacco: Never Assessed Comments Unknown Sex and Gender Information Value Date Recorded Sex Assigned at Female 03/19/2022 10:49 AM 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 TREE CONTRACTOR Legal Sex Female 5:46 PM CDT Gender Identity Female 03/19/2022 10:49 AM CHRISTMAS TREE CONTRACTOR Sexual Orientation Not on file documented as of this encounter Miscellaneous Notes * Cerner Conversion Note - Historical ProviderMD - 12/14/2020 10:54 AM CDT PAT Adult Entered On: 12/14/2020 10:54 EDT Performed On: 12/14/2020 10:54 EDT by Tru Barkley Rn Vital Measurements Temperature Source : Temporal [...] Source : Measured Height Entry Format : [place] Height, Feet : 5 ft(Converted to: 152 cm, 60 Inch) Height, Inches : 7 Inch(Converted to: 0 ft 7 Inch, 17.78 cm) Clinical Height : 170.18 cm Weight Source : Standing scale Weight Entry Format : [place] Clinical Dosing Weight : 116.82 kg Weight, Pounds : 257 lb Body Surface Area (BSA) : 2.25 m2 Body Mass Index : 40.3 kg/m2 (>HHI) [place] Body Weight : 61 kg PETROS HERNDON RN - 12/17/2020 10:31 EDT Health Histories Smoking Status : Never (less than 100 in lifetime; none in last 30 days) Smokeless Tobacco Status : Never Implant/Device Type, Reinforced Concrete Inspector and Model : breast implants IVC [...] by Tru Barkley Rn) Infectious Disease History Where are the [...] Tru Barkley Rn - 12/14/2020 10:55 EDT [place] Suicide Severity Rating Scale (C-SSRS) CSSRS Past [...] Info Legal Guardian : Spouse Support Person/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..] Years Old : Yes Gender Male : No Tru Barkley Rn - 12/14/2020 10:55 EDT Electronically signed by Jeremy Mcgee Conversion Cooperative Education Director Cerner at 08/22/2022 3:51 PM CDT documented in this encounter Plan of Treatment Upcoming Encounters Date Type Department Care Team (Late st Contact Info) Description 04/06/2025 9:00 AM EST Office Visit [facility] Cardiology [address] [place] [phone] [place] [address] [place] [address] [address] [place], [place] [address] documented as of this encounter Visit Diagnoses Not on filedocumented in this encounter Care Teams Trapper Animal Relationship Specialty Start Date End Date Santosh Briones MD [address] [place], [place] [address] PCP - General General Internal Medicine 04/18/22 04/22/22 Santosh Briones MD [address] [place], [place] [address] PCP - General General Internal Medicine 04/23/22 Julius Cho MD [address] [place] [address] Referring Physician Internal Medicine 04/23/22 Lew Ross MD [address] [facility] [address] [id number] Cardiology 08/13/23 Karlos Pringle PA-C [address] [facility], [facility] [address] [place] [address] Cardiology 11/23/23 documented as of this encounter
--- OUTSIDE RECORDS SUMMARY | 2025-01-10 11:12 | XMS_ITS | Clinical Summary ---
Author Organization [facility] Address [address] [place] [address] Care Team Providers Care Train Station Server Name Role Phone Santosh Briones MD Primary Care Provider [phone] Social History Tobacco Use Types Packs/Day Years [...] 2) 03/20/2023 01/23/2023 COVID-19 Vaccine (5 - 2024-2 6 season) 2025 10/29/2021, 02/01/2021, 05/23/2020, Additional history exists INFLUENZA VACCINE 02/01/2025 TDAP/TD VACCINES (2 - Td or Tdap) 07/17/2032 023 Insurance MEDICARE A & B Member Subscriber Plan / Payer (Ef fective 2024-Present) Name:Janis Lorenzana Member ID:[id number] Relation to Subscriber:Self Name:Christie Lorenzanalissette Suero Subscriber ID:[id number] Payer ID:[id number] Group ID:Not on file Type:Not on file Address: [address] MEDICARE ADVANTAGE HMO NON PAR Care Teams Train Station Server Relationship Specialty Start Date End Date Santosh Briones MD PCP - General Internal Medicine 02/27/22
--- OUTSIDE RECORDS SUMMARY | 2025-01-10 11:12 | XMS_ITS | Encounter Summary ---
Author Organization [employer] ([place], [place], [place], [place]) Address [address] [place] [address] Care Team Providers Care Orthopedic Physical Therapist Name Role Phone Santosh Briones MD Primary Care Provider [phone] Santosh Briones MD Primary Care Provider [phone] Julius Cho MD Unavailable Lew Ross MD Unavailable Karlos Pringle PA-C Unavailable [phone] Encounter Details Date Type Department Care Team (Late st Contact Info) Description 12/19/2020 Transcribed Document [facility] [place] Family Medicine [facility] [place] [address] ProviderAle MD [address] [place] [address] Social History Tobacco Use Types Packs/Day Years Used Date Smoking Tobacco: Never Assessed Comments Unknown Sex and Gender Information Value Date Recorded Sex Assigned at Female 03/19/2022 10:49 AM KINDERGARTEN TEACHER ASSISTANT Legal Sex Female 5:46 PM CDT Gender Identity Female 03/19/2022 10:49 AM KINDERGARTEN TEACHER ASSISTANT Sexual Orientation Not on file documented as of this encounter Miscellaneous Notes * Cerner Conversion Note - Historical MD Alex - 12/19/2020 7:49 AM CDT Peripheral Nerve Block Entered On: 12/19/2020 7:51 EDT Performed On: 12/19/2020 7:49 EDT by Pérez Gil Rn Peripheral Nerve Block Peripheral Nerve Block [...] - 12/19/2020 7:49 EDT Electronically signed by [facility] Conversion Castings Trimmer Cerner at 08/22/2022 3:50 PM CDT documented in this encounter Plan of Treatment Upcoming Encounters Date Type Department Care Team (Late st Contact Info) Description 04/06/2025 9:00 AM EST Office Visit [facility] Cardiology [address] [place], [place] [address] [place] [address] [place] [address] [address] [place] [address] documented as of this encounter Visit Diagnoses Not on filedocumented in this encounter Care Teams Orthopedic Physical Therapist Relationship Specialty Start Date End Date Santosh Briones MD [address] [place] [address] PCP - General General Internal Medicine 04/18/22 04/22/22 Santosh Briones MD [address] [facility] [place] [address] PCP - General General Internal Medicine 04/23/22 Julius Cho MD [address] [place] [address] Referring Physician Internal Medicine 04/23/22 Lew Ross MD [address] [facility] [address] [place] [address] Cardiology 08/13/23 Karlos Pringle PA-C [address], [facility] [address] [place] [address] Cardiology 11/23/23 documented as of this encounter
--- OUTSIDE RECORDS SUMMARY | 2025-01-10 11:12 | XMS_ITS | Encounter Summary ---
Author Organization [employer] ([place], [place], [place], [place]) Address [address] [place] [address] Care Team Providers Care Regulatory Compliance Officer Name Role Phone Santosh Briones MD Primary Care Provider [phone] Santosh Briones MD Primary Care Provider [phone] Julius Cho MD Unavailable Lew Ross MD Unavailable Karlos Pringle PA-C Unavailable [phone] Encounter Details Date Type Department Care Team (Late st Contact Info) Description 12/19/2020 Transcribed Document [facility] Family Medicine [place] [address] ProviderAle MD [address] [place] [address] Social History Tobacco Use Types Packs/Day Years Used Date Smoking Tobacco: Never Assessed Comments Unknown Sex and Gender Information Value Date Recorded Sex Assigned at Female 03/19/2022 10:49 AM WELFARE VISITOR Legal Sex Female 5:46 PM CDT Gender Identity Female 03/19/2022 10:49 AM WELFARE VISITOR Sexual Orientation Not on file documented as of this encounter Miscellaneous Notes * Cerner Conversion Note - Historical ProviderMD - 12/19/2020 8:35 AM CDT [facility] Main OR PostOp Summary Primary Physician: MEE TUCKER, DPM-POD Finalized Date/Time: 12/19/20 12:16:40 Pt. Name: JANIS FIGUEREDO BILLIE /Sex: 1965 Female Med Rec #: [id number] Physician: MEE TUCKER DPM-POD Financial #: [id number] Pt. Type: O Room/Bed: /9 Admit/Disch: 12/19/20 06:32:00 - Institution: [facility] Main OR PostOp Case Times Entry 1 In PACU II 12/19/20 11:10:00 Ready for PACU II 12/19/20 12:11:00 Discharge Discharge from PACU 12/19/20 12:11:00 II Last Modified By: SIOMARA ALLEN RN 12/19/20 12:16:39 [facility] Main OR PostOp Case Times Audit 12/19/20 12:16:39 Igniter Assembler: [id number] Modifier: [id number] <+> 1 Ready for PACU II Discharge <+> 1 Discharge from PACU II Finalized By: SIOMARA ALLEN RN Document Signatures Signed By: SIOMARA ALLEN RN 12/19/20 12:[address] [facility] Conversion Telemarketing Fundraiser Cerner at 08/22/2022 3:51 PM CDT documented in this encounter Plan of Treatment Upcoming Encounters Date Type Department Care Team (Late st Contact Info) Description 04/06/2025 9:00 AM EST Office Visit [facility] Cardiology [address] [place] [address] Lew Ross MD [address] [place] [address] [address] [place] [address] documented as of this encounter Visit Diagnoses Not on filedocumented in this encounter Care Teams Regulatory Compliance Officer Relationship Specialty Start Date End Date Santosh Briones MD [address] [facility] [place] [place] [address] PCP - General General Internal Medicine 04/18/22 04/22/22 Santosh Briones MD [address] [facility] [place] [place] [address] PCP - General General Internal Medicine 04/23/22 Julius Cho MD [address] [place] [address] Referring Physician Internal Medicine 04/23/22 Lew Ross MD [address] [facility] [address] [place] [address] Cardiology 08/13/23 Karlos Pringle PA-C [address] [place] [address] Cardiology 11/23/23 documented as of this encounter
--- OUTSIDE RECORDS SUMMARY | 2025-01-10 11:13 | XMS_ITS | Encounter Summary ---
Author Organization [employer] ([place], [place], [place], [place]) Address [address] [place] [address] Care Team Providers Care Fuse Assembler Name Role Phone Santosh Briones MD Primary Care Provider [phone] Julius Cho MD Unavailable Lew Ross MD Unavailable Karlos Pringle PA-C Unavailable [phone] Reason for Visit * Reason Onset Date Comments Medication Management 01/03/2025 Encounter Details Date Type Department Care Team (Late st Contact Info) Description 01/03/2025 Telephone [facility] Cardiology [address] [place] [address] Lesly Sanchez, PROFESSOR OF POULTRY SCIENCE [address] [place] [address] Medication Management Social History Tobacco Use Types Packs/Day Years [...] Do you speak a language other than Maltese at [facility]? No 08/17/2023 Do you want [...] Sex Assigned at Female 03/19/2022 10:49 AM SCHOOL COORDINATOR Legal Sex Female 5:46 PM CDT Gender Identity Female 03/19/2022 10:49 AM SCHOOL COORDINATOR Sexual Orientation Not on file documented as of this encounter Miscellaneous Notes * Telephone Encounter - Arturo Prather - 01/09/2025 4:46 PM EDT Attempted to contact Valeria and was unable to reach her will attempt again * Telephone Encounter - Leny Padmini - 01/03/2025 12:25 PM EDT Cover my meds Meds calling about the PA on [place] calling to help push appeal throughon denial Please contact Valeria at [phone] documented in this encounter Plan of Treatment Upcoming Encounters Date Type Department Care Team (Late st Contact Info) Description 04/06/2025 9:00 AM EST Office Visit [facility] Cardiology [address] [place] [address] Lew Ross MD [address] [place] [address] [address] documented as of this encounter Visit Diagnoses Not on filedocumented in this encounter Care Teams Fuse Assembler Relationship Specialty Start Date End Date Santosh Briones MD [address] [facility] [place] [address] PCP - General General Internal Medicine 04/23/22 Julius Cho MD [address] [place] [address] Referring Physician Internal Medicine 04/23/22 Lew Ross MD [address] [place] [address] [address] Cardiology 08/13/23 Karlos Pringle PA-C [address] [place] [address], [address] [place] [address] Cardiology 11/23/23 documented as of this encounter
--- OUTSIDE RECORDS SUMMARY | 2025-01-10 11:13 | XMS_ITS | Clinical Summary ---
Author Organization [employer] ([place], [place], [place], [place]) Address [address] [place] [address] Care Team Providers Care Profile Grinder Name Role Phone Santosh Briones MD Primary Care Provider [phone] Julius Cho MD Unavailable Lew Ross MD Unavailable Karlos Pringle PA-C Unavailable [phone] Allergies Active Allergy Reactions Criticality Noted Date Comments Morphine Other (See Comments) 04/21/2022 Sulfamethoxazole-Trimethoprim Nausea And Vomiting 04/21/2022 Medications furosemide (LASIX) 40 MG tablet Take 1 tablet (40 mg total) by mouth daily. Active folic acid (FOLVITE) 400 MCG tablet Take 2 tablets (800 mcg total) by mouth daily. Active pantoprazole (PROTONIX) 40 MG tablet Take 1 tablet (40 mg total) by mouth daily. 07/31/19 24 Active apixaban (Eliquis) 5 mg Tab tablet Take 1 tablet (5 mg total) by mouth 2 (two) times daily. Active cholecalcifero l (VITAMIN D3) 125 mcg (5,000 unit) tablet Take 1 tablet (5,000 Units total) by mouth daily. Active acetaminophen (TYLENOL) 650 MG CR tablet Take 1 tablet (650 mg total) by mouth every 8 (eight) hours as needed for pain. Active DULoxetine (CYMBALTA) 30 MG capsule Take 1 capsule (30 mg total) by mouth daily. 12/28/19 25 Active gabapentin (NEURONTIN) 300 MG capsule Take 1 capsule (300 mg total) by mouth 3 (three) times daily. Max Daily Amount: 900 mg Active ibandronate (BONIVA) 150 mg tablet Take 1 tablet (150 mg total) by mouth every 30 (thirty) days Take in AM with glass of water prior to food, don't lie down for 30 minutes.. Active methocarbamoL (ROBAXIN) 750 MG tablet Take 1 tablet (750 mg total) by mouth 3 (three) times daily. Active mINOCYCLine (DYNACIN) 100 MG tablet Take 1 tablet (100 mg total) by mouth 2 (two) times daily. Active aspirin 81 MG chewable tablet Take 1 tablet (81 mg total) by mouth daily. Active semaglutide, weight loss, (Wegovy) 0.5 mg/0.5 mL pnij Inject 0.5 mg under the skin every 7 days. 2 mL 12/31/19 25 Active cyanocobalamin (vitamin B-12) 1000 MCG tablet Take 1 tablet (1,000 mcg total) by mouth daily. 025 Discontinu ed(Other) alendronate (FOSAMAX) 70 MG tablet Take 1 tablet (70 mg total) by mouth every 7 days Take in the morning with a full glass of water, on an empty stomach, and do not take anything else by mouth or lie down for the next 30 min.. 025 Discontinu ed(Other) atorvastatin (LIPITOR) 80 MG tablet Take 1 tablet (80mg total) by mouth every evening.. 90 tablet 3 11/23/19 24 025 Discontinu ed(Other) semaglutide, weight loss, (Wegovy) 0.5 mg/0.5 mL PnIj Inject 0.5 mg subcutaneously once a week. 2 mL 12/02/19 24 025 Discontinu ed(Other) enoxaparin (LOVENOX) 120 mg/0.8 mL syrg Inject 0.8 mLs (120 mg total) under the skin every 12 (twelve) hours for 10 doses. 8 mL 12/31/19 25 025 Active Problems Problem Noted Date Diagnosed Date [...] ADONIS (obstructive sleep apnea) by history 022 Encounters Date Type Department Care Team Description 01/10/2025 Telephone [facility] Cardiology [address] [place] [phone] Lesly Sanchez, PIN DRAFTING MACHINE OPERATOR Advice Only 01/03/2025 Telephone [facility] Cardiology [address] [place] [address] Lesly Sanchez, PIN DRAFTING MACHINE OPERATOR Medication Management 12/30/2024 9:30 AM EDT Office Visit [facility] Cardiology [address] [place] [address] Lesly Sanchez, PIN DRAFTING MACHINE OPERATOR 12/30/2024 Documentation [facility] Cardiology [address] [place] [phone] Dee Estevez 12/30/2024 Travel from Last 3 Months Immunizations Immunization Administration Dates Next Due Tdap 07/17/2022 Family [...] Do you speak a language other than Burmese at [facility]? No 08/17/2023 Do you want [...] Sex Assigned at Female 03/19/2022 10:49 AM RELIEF MAN Legal Sex Female 5:46 PM CDT Gender Identity Female 03/19/2022 10:49 AM RELIEF MAN Sexual Orientation Not on file Last Filed Vital Signs Vital Sign Reading Time Taken Comments Blood Pressure 120/60 12/30/2024 9:27 AM EDT Pulse 79 12/30/2024 9:27 AM EDT Temperature 36.3 C (97.3 F) 08/25/2023 7:57 AM EDT Respiratory Rate 16 08/25/2023 7:57 AM EDT Oxygen Saturation 99% 08/25/2023 7:57 AM EDT Inhaled Oxygen Concentration - - Weight 132 kg (291 lb) 12/30/2024 9:27 AM EDT Height 170.2 cm (5' 7 ) 12/30/2024 9:27 AM EDT Body Mass Index 45.58 12/30/2024 9:27 AM EDT Plan of Treatment Upcoming Encounters Date Type Department Care Team (Late st Contact Info) Description 04/06/2025 9:00 AM EST Office Visit [facility] Cardiology [address] [phone] [place] [address] [place] [address] [address] [place] [address] Health Maintenance Due Date Last Done Comments [...] Shingles Vaccine (Zoster) (2 of 2) 03/20/20232022 Medicare IPPE (Welcome to Medicare) G0402 09/01/2024 COVID-19 VACCINE (5 - 2024-2 6 season) 2025 10/29/2021, 02/01/2021, 05/23/2020, Additional history exists Influenza Vaccine (#1) 2025 01/23/2023 Tobacco Cessation Counseling and Screening (12+) 12/30/2025 12/30/2024 DTAP/TDAP/TD VACCINES (2 - T d or Tdap) 07/17/2032 07/17/2022 Pneumococcal 50+ years Completed 01/28/2024 Medical Devices Implanted Type Area Hand Paster Device Identifier Shelf Expiration Date Model / Serial / Lot Base Tib 18mm [id number] - [id number] Implanted:Qty : 1 on 04/23/2022 by Massimo Blake DPM at [facility] IMPLANTS Left: Ankle ARIAS MED GRP:ARIAS MED TECH 03/13/[id number] / / [id number] Stem Mid Tib 16mm [id number] - [id number] Implanted:Qty : 2 on 04/23/2022 by Massimo Blake DPM at [facility] IMPLANTS Left: Ankle ARIAS MED GRP:ARIAS MED TECH 03/10/[id number] / / [id number] Stem Top Tib 16mm [id number] - [id number] Implanted:Qty : 1 on 04/23/2022 by Massimo Blake DPM at [facility] IMPLANTS Left: Ankle ARIAS MED GRP:ARIAS MED TECH 05/20/[id number] / / [id number] Cement Bone Smplx Tobra 40gm 6197-9-001 - [id number] Implanted:Qty : 3 on 04/23/2022 by Massimo Blake DPM at [facility] IMPLANTS Left: Ankle GIUSEPPE:GIUSEPPE ORTHOPAEDICS 08/02/2023 6197-9-001 / / [id number] Tray Tib Sz4 L [id number] - [id number] Implanted:Qty : 1 on 04/23/2022 by Massimo Blake DPM at [facility] IMPLANTS Left: Ankle ARIAS MED GRP:ARIAS MED TECH 02/20/[id number] / / [id number] Dome Inbone Talar Sulcus Sz 3 [id number] - [id number] Implanted:Qty : 1 on 04/23/2022 by Massimo Blake, DPM at [facility] IMPLANTS Left: Ankle ARIAS MED GRP:ARIAS MED TECH 10/31/2028-3 / / [id number] Insrt Crossconnor Poly Sz3 [id number] - [id number] Implanted:Qty : 1 on 04/23/2022 by Massimo Blake, DPM at [facility] IMPLANTS Left: Ankle ARIAS MED GRP:ARIAS MED TECH 02/17/[id number] / / [id number] Stem Talar 10mm [id number] - [id number] Implanted:Qty : 1 on 04/23/2022 by Massimo Blake, DPM at [facility] IMPLANTS Left: Ankle ARIAS MED GRP:ARIAS MED TECH 02/16/[id number] / / [id number] Bone Putty [facility] 620-005 - [id number] Implanted:Qty : 1 on 08/18/2023 by Massimo Blake, DPM at [facility] IMPLANTS Left: Ankle BIOCOMPOSITES 03/03/2026 620-005 / / [id number] Insurance [facility] MEDICARE ADVANTAGE Advance Directives For more information, please contact: [phone] * Full Code (Latest Code Status on [...] 5:35 PM 08/18/2023 5:58 PM Care Teams Profile Grinder Relationship Specialty Start Date End Date Santosh Briones MD [address] [facility] [place] [address] PCP - General General Internal Medicine 04/23/22 Julius Cho MD [address] [place] [address] Referring Physician Internal Medicine 04/23/22 Lew Ross MD [address] [facility] [address] [place] [address] Cardiology 08/13/23 Karlos Pringle PA-C [address] [facility] [place] [address] Cardiology 11/23/23
--- OUTSIDE RECORDS SUMMARY | 2025-01-10 11:13 | XMS_ITS | Clinical Summary ---
Author Organization Healthcare Address [address] [place] [address] Care Team Providers Care Embossing Machine Tender Name Role Phone Abby Phillip CRISTOFER Primary Care Provider [phone] Social History Tobacco Use Types Packs/Day Years [...] 09/06/2018 1:10 PM EDT Plan of Treatment Upcoming Encounters Date Type Department Care Team (Late st Contact Info) Description 01/16/2025 9:30 AM EDT Consult OR Clinic Medicine Specialties [address] [place] [address] April Bedolla R, LOCKET MAKER [address] [place] [address] Health Maintenance Due Date Last Done Comments [facility]-Bone Density Scan 1965 [facility]-Depression Screening 1965 [facility]-HIV Screening 1965 [facility]-Hepatitis C Screening 1965 [facility]-Medicare Annual Wellness (AWV) 1965 [facility]-Infant/Child/Adol SDOH Screenings 1965 [facility]- SDOH Screenings 1981 [facility]-Adult SDOH Screenings 1981 [facility]-Pap Smear 1984 [facility]-Cervical Cancer Screening 1993 [facility]-HPV/Cotest 1993 CT Colonography 2008 Colonoscopy 2008 FIT-DNA 2008 FIT 2008 FOBT 2008 Sigmoidoscopy 2008 [facility]-Colorectal Cancer Screening 2008 [facility]-Breast Cancer Screening 2013 [facility]-Zoster Vaccines (2 of 2) 03/20/2023 01/23/2023 [id number] Vaccine ( season) 2025 10/29/2021, 02/01/2021, 05/23/2020, Additional history exists [facility]-Influenza Vaccine (#1) 2025 01/28/2024 [facility]-DTaP,Tdap,and Td Vaccines (2 - Td or Tdap) 07/17/2032 07/17/2022 [facility]-RSV Vaccine: 60+ Years or (1 - 1-dose 75+ series) 2038 [facility]-Pneumococcal Vaccine: 50+ Years Completed 01/28/2024 HPV Vaccines Aged Out No longer eligi [...] patient's age to complete this topic Insurance [facility] MEDICARE Care Teams Embossing Machine Tender Relationship Specialty Start Date End Date Abby Phillip APRN [address] [place] [address] PCP - General 01/03/25
--- OUTSIDE RECORDS SUMMARY | 2025-01-10 11:13 | XMS_ITS | Encounter Summary ---
Author Organization [employer] ([place], [place], [place], [place]) Address [address] [place] [address] Care Team Providers Care Ocean Export Account Manager Name Role Phone Santosh Briones MD Primary Care Provider [phone] Julius Cho MD Unavailable Lew Ross MD Unavailable Karlos Pringle PA-C Unavailable [phone] Encounter Details Date Type Department Care Team (Latest Contact Info) Description 12/30/2024 Travel Social History Tobacco Use Types Packs/Day Years [...] Do you speak a language other than Angolan at [facility]? No 08/17/2023 Do you [...] Sex Assigned at Female 03/19/2022 10:49 AM LEAD MANUFACTURING ENGINEERING TECH Legal Sex Female 5:46 PM CDT Gender Identity Female 03/19/2022 10:49 AM LEAD MANUFACTURING ENGINEERING TECH Sexual Orientation Not on file documented as of this encounter Plan of Treatment Upcoming Encounters Date Type Department Care Team (Late st Contact Info) Description 04/06/2025 9:00 AM EST Office Visit [facility] Cardiology [address] [place] [address] Lew Ross MD [address] [facility] [address] [place] [address] documented as of this encounter Visit Diagnoses Not on filedocumented in this encounter Care Teams Ocean Export Account Manager Relationship Specialty Start Date End Date Santosh Briones MD [address] [place] [address] PCP - General General Internal Medicine 04/23/22 Julius Cho MD [address] [place] [address] Referring Physician Internal Medicine 04/23/22 Lew Ross MD [address] [facility] [address] [place] [address] Cardiology 08/13/23 Karlos Pringle PA-C [address] [facility] [place] [address] Cardiology 11/23/23 documented as of this encounter
--- OUTSIDE RECORDS SUMMARY | 2025-01-10 11:13 | XMS_ITS | Referral Summary ---
Author Organization [email or web address] ([place], [place], [place], [place]) Address [address] [place] [address] Care Team Providers Care Food Consultant Name Role Phone Santosh Briones MD Primary Care Provider [phone] Julius Cho MD Unavailable Lew Ross MD Unavailable Karlos Pringle PA-C Unavailable [phone] Encounters Date Type Department Care Team Description 01/10/2025 Telephone [facility] Cardiology [address] [place] [address] Lesly Sanchez, TRIAL MANAGEMENT ASSOCIATE Advice Only 01/03/2025 Telephone [facility] Cardiology [address] [place] [phone] Lesly Sanchez, TRIAL MANAGEMENT ASSOCIATE Medication Management 12/30/2024 Documentation [facility] Cardiology [address] [place] [phone] Dee Estevez 12/30/2024 Travel 12/30/2024 9:30 AM EDT Office Visit [facility] Cardiology [address] [place] [phone] Lesly Sanchez, TRIAL MANAGEMENT ASSOCIATE from Last 3 Months Allergies Active Allergy Reactions Criticality Noted Date [...] (obstructive sleep apnea) by history 022 Immunizations Immunization Administration Dates Next Due Tdap 07/17/2022 Social [...] you speak a language other than [facility]? No 08/17/2023 Do [...] Sex Assigned at Female 03/19/2022 10:49 AM SCRAP METAL COLLECTOR Legal Sex Female 5:46 PM CDT Gender Identity Female 03/19/2022 10:49 AM SCRAP METAL COLLECTOR Sexual Orientation Not on file Last Filed [...] Description 04/06/2025 9:00 AM EST Office Visit [facility] Cardiology [address] [place], [place] [phone] Lew Ross MD [address] [place] [address] [address] [place] [address] Medical Devices Implanted Type Area Sanitation Truck Driver Device Identifier Shelf Expiration Date Model / Serial / Lot Base Tib 18mm [id number] - [id number] Implanted:Qty : 1 on 04/23/2022 by Massimo Blake DPM at [facility] IMPLANTS Left: Ankle ARIAS MED GRP:ARIAS MED TECH 03/13/[id number] / / [id number] Stem Mid Tib 16mm [id number] - [id number] Implanted:Qty : 2 on 04/23/2022 by Massimo Blake DPM at [facility] IMPLANTS Left: Ankle ARIAS MED GRP:ARIAS MED TECH 03/10/2030 / / [id number] Stem Top Tib 16mm [id number] - [id number] Implanted:Qty : 1 on 04/23/2022 by Massimo Blake DPM at [facility] IMPLANTS Left: Ankle ARIAS MED GRP:ARIAS MED TECH 05/20/[id number] / / [id number] Cement Bone Smplx Tobra [facility] 6197-9-001 - [id number] Implanted:Qty : 3 on 04/23/2022 by Massimo Blake DPM at [facility] IMPLANTS Left: Ankle GIUSEPPE:GIUSEPPE ORTHOPAEDICS 08/02/2023 6197-9-001 / / [id number] Tray Tib Sz4 L [id number] - [id number] Implanted:Qty : 1 on 04/23/2022 by Massimo Blake, DPM at [facility] IMPLANTS Left: Ankle ARIAS MED GRP:ARIAS MED TECH 02/20/[id number] / / [id number] Dome Inbone Talar Sulcus Sz 3 - [id number] Implanted:Qty : 1 on 04/23/2022 by Massimo Blake, DPM at [facility] IMPLANTS Left: Ankle ARIAS MED GRP:ARIAS MED TECH 10/31/2028 / / [id number] Insrt Crosslnk Poly Sz3 [id number] - [id number] Implanted:Qty : 1 on 04/23/2022 by Massimo Blake, DPM at [facility] IMPLANTS Left: Ankle ARIAS MED GRP:ARIAS MED TECH 02/17/203031227546 / / [id number] Stem Talar 10mm [id number] - [id number] Implanted:Qty : 1 on 04/23/2022 by Massimo Blake, DPM at [facility] IMPLANTS Left: Ankle ARIAS MED GRP:ARIAS MED TECH 02/16/[id number] / / [id number] Bone Putty Stimulan [facility] 620-005 - [id number] Implanted:Qty : 1 on 08/18/2023 by Massimo Blake, DPM at [facility] IMPLANTS Left: Ankle BIOCOMPOSITES 03/03/2026 620-005 / / [id number] Insurance [facility] [address] Advance Directives For more information, please contact: [phone] * Full Code (Latest Code Status on [...] 5:35 PM 08/18/2023 5:58 PM Care Teams Food Consultant Relationship Specialty Start Date End Date Santosh Briones MD [address] [facility] [place] [address] PCP - General General Internal Medicine 04/23/22 Julius Cho MD [address] [place] [address] Referring Physician Internal Medicine 04/23/22 Lew Ross MD [address] [facility] [address] [place] [address] Cardiology 08/13/23 Karlos Pringle PA-C [address] [facility] [place] [address] Cardiology 11/23/23
--- OUTSIDE RECORDS SUMMARY | 2025-01-10 11:13 | XMS_ITS | Encounter Summary ---
Author Organization [employer] ([place], [place], [place], [place]) Address [address] [place] [address] Care Team Providers Care Stencil Cutter Machine Name Role Phone Santosh Briones MD Primary Care Provider [phone] Julius Cho MD Unavailable Lew Ross MD Unavailable Karlos Pringle PA-C Unavailable [phone] Reason for Visit * Reason Onset Date Comments Medication Management 12/30/2024 PA for Weg ovy 0.5MG/0.5ML auto-injectors Encounter Details Date Type Department Care Team (Late st Contact Info) Description 12/30/2024 Documentation [facility] Cardiology [address] [place] [address] Dee Estevez Social History Tobacco Use Types Packs/Day Years [...] Do you speak a language other than [facility] at [facility]? No 08/17/2023 Do [...] Sex Assigned at Female 03/19/2022 10:49 AM RENAL DIALYSIS RN Legal Sex Female 5:46 PM CDT Gender Identity Female 03/19/2022 10:49 AM RENAL DIALYSIS RN Sexual Orientation Not on file documented as of this encounter Progress Notes * Dee Estevez - 12/30/2024 4:21 PM EDT PA for Wegovy 0.5MG/0.5ML auto-injectors Status: Waiting for Appeal Sales:[id number] documented in this encounter Plan of Treatment Upcoming Encounters Date Type Department Care Team (Late st Contact Info) Description 04/06/2025 9:00 AM EST Office Visit [facility] Cardiology [address] [place] [id number] [place] [address] [place] [address] [id number] documented as of this encounter Visit Diagnoses Not on filedocumented in this encounter Care Teams Stencil Cutter Machine Relationship Specialty Start Date End Date Santosh Briones MD [address] [place] [address] [place] [address] PCP - General General Internal Medicine 04/23/22 Julius Cho MD [address] [place] [address] Referring Physician Internal Medicine 04/23/22 Lew Ross MD [address] [place] [address] [id number] Cardiology 08/13/23 Karlos Pringle PA-C [address] [place] [address] [address] [place] [address] Cardiology 11/23/23 documented as of this encounter
--- NOTE | 2025-01-10 11:23 | ECG_ITS ---
APPROVED REPORT Exam: Resting ECG HR:65 bpm ECG Measurements Heart Rate 65 AXES UT 182 P 71 QRSd 106 QRS -4 QT 399 T -8 QTc 410 Conclusion SINUS RHYTHM Old anteroseptal changes BORDERLINE ECG UNCONFIRMED REPORT Electronically signed by : Alberto Esposito MD 01/11/2025 08:27:42
[2025-01-10 11:35] LABS: Hematocrit 31.7 % (37.0-47.0); Hemoglobin 9.7 g/dL (12.2-16.2); Immature Granulocytes % 0.5 %; Mean Corpuscular HGB Conc 30.6 g/dL (31.8-35.4); Mean Corpuscular Hemoglobin 25.9 pg (27.0-31.2); Mean Corpuscular Volume 84.8 fl (81-99); Nucleated Red Blood Cells % 0 %; Platelet Count 273 K/mm3 (142-424); Red Blood Count 3.74 M/mm3 (4.20-5.40); Red Cell Distribution Width-SD 46.0 fL; White Blood Count 4.3 K/mm3 (4.8-10.8)
[2025-01-10 11:45] LABS: Alanine Aminotransferase 13 U/L (12-78); Albumin Level 3.7 g/dl (3.5-5.0); Albumin/Globulin Ratio 1.2 (1.1-1.8); Alkaline Phosphatase 98 U/L (38-126); Anion Gap 8.9 mEq/L (5-15); Aspartate Amino Transferase 21 U/L (14-36); Bilirubin,Total 0.5 mg/dl (0.2-1.3); Blood Urea Nitrogen 18 mg/dl (7-17); Calcium 8.8 mg/dl (8.4-10.2); Carbon Dioxide 30 mmol/L (22.0-30.0); Chloride 104 mmol/L (98-107); Creatinine Clearance Estimated 57 mL/min (50-200); Creatinine,Serum 0.70 mg/dl (0.52-1.04); Estimated Glomerular Filt Rate 85 ml/min (>60); GFR (African American) 103 ML/MIN (>60); Globulin 3.1 g/dL (1.3-3.2); Glucose 99 mg/dl (74-100); Potassium 3.9 mmoL/L (3.5-5.1); Sodium 139 mmol/L (136-145); Total Protein,Serum 6.8 g/dl (6.3-8.2)
== END 2025-01-10 23:59 | disposition home or self-care (01) ==
LOC: PREOP 10:52
PROVIDERS: PCP Nurse Practitioner Family; Visit Provider Obstetrics & Gynecology
DX: Z01.810 Encounter for preprocedural cardiovascular examination (principal); Z01.811 Encounter for preprocedural respiratory examination; Z01.812 Encounter for preprocedural laboratory examination; R94.31 Abnormal electrocardiogram [ECG] [EKG]; R05.9 Cough, unspecified
CPT/HCPCS: 71046; 80053; 85025; 93005

== ENCOUNTER 2025-01-12 10:32 | Outpatient (CLI) | payer MEDICARE, SELFPAY ==
--- OUTSIDE RECORDS SUMMARY | 2024-12-30 09:30 | XMS_ITS | Encounter Summary ---
Author Organization [employer] ([place], [place], [place], [place]) Address [address] [place] [address] Care Team Providers Care Hot Strip Mill Inspector Name Role Phone Santosh Brionse MD Primary Care Provider [phone] Julius Cho MD Unavailable Lew Ross MD Unavailable Karlos Pringle PA-C Unavailable [phone] Reason for Visit * Reason Comments Follow-up Encounter Details Date Type Department Care Team (Late st Contact Info) Description 12/30/2024 9:30 AM EDT Office Visit [facility] Cardiology [address] [place] [address] Lesly Sanchez, CRISTOFER [address] [place] [address] Coronary artery disease involving [place] coronary artery of [place] heart without angina pectoris (Primary Dx); Morbid obesity (HCC); ADONIS (obstructive sleep apnea) by history; Stasis, venous; Primary hypertension; Mixed hyperlipidemia; Lymphedema; Pre-operative cardiovascular examination Social History Tobacco Use Types Packs/Day Years Used Date Smoking Tobacco: Never Smokeless Tobacco: Never Alcohol Use Standard Drinks/Week Comments Not Currently [...] speak a language other than Austrian at [facility]? No 08/17/2023 Do you want [...] Sex Assigned at Female 03/19/2022 10:49 AM FAN MAIL EDITOR Legal Sex Female 5:46 PM CDT Gender Identity Female 03/19/2022 10:49 AM FAN MAIL EDITOR Sexual Orientation Not on file documented as of this encounter Last Filed Vital Signs Vital Sign Reading Time Taken Comments Blood Pressure 120/60 12/30/2024 9:27 AM EDT Pulse 79 12/30/2024 9:27 AM EDT Temperature - - Respiratory Rate - - Oxygen Saturation - - Inhaled Oxygen Concentration - - Weight 132 kg (291 lb) 12/30/2024 9:27 AM EDT Height 170.2 cm (5' 7 ) 12/30/2024 9:27 AM EDT Body Mass Index 45.58 12/30/2024 9:27 AM EDT documented in this encounter Progress Notes * Lesly Haywood Laura, ASSURANCE SENIOR MANAGER - 12/30/2024 9:30 AM EDT Basic Information: Name: Janis Lorenzana, :1965 PCP: Santosh Briones MD HPI: History of Present Illness Ms Lorenzana is a 58 year old female with a past medical history of peripheral artery disease, lymphedema, coronary artery disease, hypertension, DVT/PE and hyperlipidemia. She presents to the office today for cardiac clearance for colonoscopy 03/01 and hysteroscopy 01/13. She has been doing well since her last office visit. She has previously seen Karlos KAMINSKI in November 2023 but cancelled several follow up appointments. No chest pain, shortness of breath with exertion, palpitations, swelling, or dizziness. She has chronic swelling in her legs, which remains unchanged. She uses compression stockings and a pneumatic compression device, which she finds helpful. Recently, she started using a vibration plate twice daily for 10 minutes, which she believes has helped with fluid retention in her legs. Her past medical history includes coronary artery disease, for which she had a heart catheterization revealing a blockage treated with medication. She also has peripheral vascular disease and a history of infection in the same leg. She is on Eliquis twice daily for a blood clotting disorder diagnosed by a stitch burnisher, which she inherited from her mother. Her brother, who had a similar condition,had his leg amputated seven years ago. She is trying to lose weight and has previously attempted to use Wegovy, but her insurance did not cover it. She is currently using 10 units of Wegovy on a diabetic needle, which she started after her insurance changed to Medicare. She is motivated to lose weight to improve her overall health, particularly her vascular conditions. Review of Systems: ROS Pertinent positives as listed in the HPI. All other systems reviewed are negative. 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 5 HRS (A). PASS. GEN WITH POPLITEAL NERVE BLOCK. breast augmentation CARDIAC CATHETERIZATION 2015 CHOLECYSTECTOMY GASTRIC BYPASS gastric bypass revision elian filter in vena cava heel spur right HERNIA REPAIR x2 I&D,ABSCESS FOOT Left 08/18/2023 Procedure: IRRIGATION AND DEBRIDEMENT, LEFT ANKLE; Surgeon: Massimo Blake DPM; Location: [facility] OR; Service: Podiatry; Laterality: Left; ANTIBIOTIC BEADS, PULSE, BACITRACIN, WOUND VAC Social History Tobacco Use Smoking status: Never Smokeless tobacco: Never Vaping Use Vaping status: Never Used Substance Use Topics Alcohol use: Not Currently Drug use: Never Allergies Allergen Reactions Morphine Other (See Comments) Sulfamethoxazole-Trimethoprim Nausea And Vomiting Prior Cardiac/Vascular Testing: No specialty comments available. Medications: Scheduled Meds: Continuous Infusions: Current Outpatient Medications Medication Sig Dispense Refill apixaban (Eliquis) 5 mg Tab tablet Take 1 tablet (5 mg total) by mouth 2 (two) times daily. atorvastatin (LIPITOR) 80 MG tablet Take 1 tablet (80mg total) by mouth every evening.. 90 tablet 3 cholecalciferol (VITAMIN D3) 125 mcg (5,000 unit) tablet Take 1 tablet (5,000 Units total) by mouthdaily. cyanocobalamin (vitamin B-12) 1000 MCG tablet Take 1 tablet (1,000 mcg total) by mouth daily. folic acid (FOLVITE) 400 MCG tablet Take 2 tablets (800 mcg total) by mouth daily. furosemide (LASIX) 40 MG tablet Take 1 tablet (40 mg total) by mouth daily. pantoprazole (PROTONIX) 40 MG tablet Take 1 tablet (40 mg total) by mouth daily. semaglutide, weight loss, (Wegovy) 0.5 mg/0.5 mL PnIj Inject 0.5 mg subcutaneously once a week. 2 mL 0 No current facility-administered medications for this visit. PRN Meds:.@MEDSPRN@ Objective: BP 120/60 (BP Location: Left arm, Patient Position: Sitting) Pulse 79 Ht 1.702 m (5' 7 ) Wt 132 kg (291 lb) BMI 45.58 kg/m?? Physical Exam Physical Exam Vitals reviewed. Constitutional: Appearance: Normal appearance. HENT: Head: Normocephalic. Neck: Vascular: No carotid bruit. Cardiovascular: Rate and Rhythm: Normal rate and regular rhythm. Pulses: Normal pulses. Heart sounds: Normal heart sounds. No murmur heard. Pulmonary: Effort: Pulmonary effort is normal. Breath sounds: Normal breath sounds. Abdominal: General: There is no distension. Palpations: Abdomen is soft. Musculoskeletal: General: No swelling or deformity. Skin: General: Skin is warm and dry. Capillary Refill: Capillary refill takes less than 2 seconds. Neurological: General: No focal deficit present. Mental Status: She is alert and oriented to person, place, and time. Psychiatric: Mood and Affect: Mood normal. Behavior: Behavior normal. Results EKG: Reviewed with Dr Vu, with pac's 79 BPM Assessment & Plan Assessment & Plan *Preoperative cardiac clearance for colonoscopy and gynecologic procedures *PAD -Hx of Persistent L distal leg wound/skin lesion that resolved -admission in 08/25 for osteomyelitis of L foot -peripheral angiography 08/25: 80% stenosis of L ELEMENT WINDING MACHINE TENDER, CBI deferred due to difficulty advancing sheath to LLE due to iliac artery toruosity, will attempt antegrade femoral approach if refractory osteomyelitis or gangrene -LEAD/EILN 4/24: mild PAD in RLE with ELIN 1.2, 50-75% stenosis of L distal popliteal artery, L TBI 0.57 *Hx symptomatic L > R LE swelling due to combination of obesity related lymphedema/lipedema & L LE post thrombotic syndrome. - s/p L GSV ablation + B LE VV Varithena (07-23) L C4s, R C3s. -Remote Hx of L LE DVT/PE (1994) resulting in IVC filter placement, Hx of subsequent phlebitis/cellulitis. -LEVD (03-24)-No DVT *Morbid obesity with Hx of gastric bypass 2003/revision 2011. -Previously weighed > 500 lbs *Stable CAD. Hx of NM/branch vessel single vessel CAD by cath 2014. *Brother with Dx of thrombophilia *HTN-controlled *HLD Plan: -Cardiovascular status stable, Ok to proceed with procedures with acceptable cardiac risk. Hematology recommended the patient be bridged with Lovenox. Instructions provided to pt for bridging. Will send cardiac clearance for colonoscopy and gynecologic procedures to Dr. Madelyn Young and Dr. Charly Stinson. - Continue to use compression stockings, pneumatic compression device, and vibration plate for peripheral edema. -Denies anginal symptoms. Continue ASA and high intensity statin therapy for known coronary artery disease. -Obesity Actively trying to lose weight, would like to try wegovy. Concerned about insurance coverage under Medicare. - Provide samples of Wegovy starting at 0.25 mg for four weeks, then increase to 0.5 mg after four weeks. - Send prescription for Wegovy 0.5 mg. - Attempt to obtain insurance authorization for Wegovy. Inherited thrombophilia, on Eliquis. Requires Lovenox bridging for upcoming surgery. - Discuss Lovenox bridging protocol, including when to start and stop Eliquis. - Ensure Lovenox prescription is provided for bridging. -Discussed the importance of keeping following up appointments. - Follow up with Dr. Ross in three months for reassessment of peripheral vascular disease. Encouraged patient to increase physical activity for a goal of 150 minutes of moderate cardiovascular activity each week. Follow a heart healthy diet to reduce cardiovascular risk. Follow up with Dr. Ross in three months or sooner if needed The following consent language was reviewed verbally with the patient in full: Leigh, I am using a tool to help me do my notes. It is recording our conversation and creates my notes automatically and I can focus on our discussion instead of typing in the room. Is that okay with you? The patient demonstrated understanding and verbally agreed to the above consent language. All questions were addressed, and the patient provided informed consent to proceed. Lesly Sanchez APRN documented in this encounter Plan of Treatment Upcoming Encounters Date Type Department Care Team (Late st Contact Info) Description 04/06/2025 9:00 AM EST Office Visit [facility] Cardiology [address] [place] [address] [place] [address] [place] [address] [address] documented as of this encounter Visit Diagnoses Diagnosis Coronary artery disease involving [place] coronary artery of [place] heart without angina pectoris- Primary Morbid obesity (HCC) Morbid obesity ADONIS (obstructive sleep apnea) by history Obstructive sleep apnea (adult) (pediatric) Stasis, venous Unspecified venous (peripheral) insufficiency Primary hypertension Unspecified essential hypertension Mixed hyperlipidemia Lymphedema Other noninfectious lymphedema Pre-operative cardiovascular examination documented in this encounter Care Teams Hot Strip Mill Inspector Relationship Specialty Start Date End Date Santosh Briones MD [address] [facility] [place] [address] [place] [address] PCP - General General Internal Medicine 04/23/22 Julius Cho MD [address] [place] [address] Referring Physician Internal Medicine 04/23/22 Lew Ross MD [address] [place] [address] [address] Cardiology 08/13/23 Karlos Pringle PA-C [address] [facility] [place] [address] Cardiology 11/23/23 documented as of this encounter
--- OUTSIDE RECORDS SUMMARY | 2025-01-12 10:47 | XMS_ITS | Clinical Summary ---
Author Organization [facility] Address [address] [place] [address] Phone Care Team Providers Care Special Tax Auditor Name Role Phone Chris Nunn MD [ ] Conditions or Problems Problem Name Problem Code Onset Date Status Entry Date Provider Comment Standard Description Annotate Hx of pulmonary embolism 744665036 (SNOMED CT) 08/25 Resolved 08/25 Natalia Herron H/O: pulmonary embolus Morbid obesity due to excess calories E66.01 (ICD-10-CM ) 08/25 Active 08/25 Natalia Herron Morbid (severe) obesity due to excess calories Benign Essential Hypertension 87512658 (SNOMED CT) 08/25 Active 08/25 Natalia Herron Benign hypertension Candidiasis of vulva and vagina, acute B37.31 (ICD-10-CM ) 09/20 Active 09/20 Natalia Herron Acute candidiasis of vulva and vagina Yeast infection 1071974 (SNOMED CT) 09/20 Inactive 09/20 Chris Nunn MD Mycosis Scleroderma 73005846 (SNOMED CT) 08/25 Active 08/25 Dania Faulkner Systemic sclerosis Personal history of allergy Bactrim 448227210 (SNOMED CT) 08/25 Active 08/25 Dania Faulkner Allergy to antibacterial drug [facility] current use of anticoagulan ts 059761968 (SNOMED CT) 08/25 Active 08/25 Dania Faulkner Drug therapy finding Hx of pulmonary embolism 979493232 (SNOMED CT) 08/25 Removed 08/25 Dania Faulkner H/O: pulmonary embolus Presence of left artificial ankle joint 498784976 (SNOMED CT) 08/25 Active 08/25 Dania Faulkner Prosthetic total arthroplasty of ankle Morbid obesity 073983774 (SNOMED CT) 08/25 Inactive 08/25 Dania Faulkner Morbid obesity CAD (coronary artery disease) 42613765 (SNOMED CT) 08/25 Active 08/25 Dania Faulkner Coronary arteriosclerosis Hypertension 63877605 (SNOMED CT) 08/25 Inactive 08/25 Dania Faulkner Hypertensive disorder Chronic ulcer of left ankle, skin layer only 422581540 (SNOMED CT) 08/25 Active 08/25 Dania Faulkner Chronic ulcer of ankle Cellulitis of left lower limb 459558602 (SNOMED CT) 08/20 Active 08/20 Dania Faulkner Cellulitis of leg, excluding foot Chronic osteomyeliti s, left ankle 563795288 (SNOMED CT) 08/20 Active 08/20 Dania Faulkner Chronic osteomyelitis of ankle and/or foot Medications Medication Instructions Start Date Stop Date Generic Name NDC Provider MINOCYCLINE HCL 100 MG TABS Take 1 tablet by mouth once a day minocycline 60698387192 Chris Nunn MD Diflucan 200 mg tablet 1 tablet by mouth once a day as needed for yeast infection fluconazole 78240430254 Chris Nunn MD DOXYCYCLINE HYCLATE 100 MG CAPS 1 capsule by mouth once a day doxycycline hyclate 20492643581 Chris Nunn MD FOLIC ACID 400 MCG TABS Take 2 tablet by mouth once a day folic acid 28195854598 Margaret Bermudez ACETAMINOPHEN 500 MG TABS Take 1 tablet by mouth every six hours as needed acetaminophen 77058763805 Margaret Bermudez NATURAL VITAMIN D-3 125 MCG (5000 UT) TABS Take 1 tablet by mouth once a day cholecalciferol (vitamin d3) 23277788191 Margaret Bermudez ASPIRIN LOW DOSE 81 MG TBEC Take 1 tablet by mouth once a day aspirin 13442983467 Margaret Bermudez FUROSEMIDE 40 MG TABS Take 1 tablet by mouth once a day furosemide 27833412191 Margaret Bermudez apixaban (Eliquis) 5 mg Tab tablet Take 1 tablet by mouth twice a day Eliquis Margaret Bermudez PANTOPRAZOLE SODIUM 40 MG TBEC Take 1 tablet by mouth once a day pantoprazole 39308200529 Margaret Bermudez VITAMIN B-12 1000 MCG TABS Take 1 tablet by mouth once a day cyanocobalamin (vitamin b-12) 44601296761 Margaret Bermudez SACCHAROMYCES BOULARDII 250 MG CAPS Take 1 capsule (250 mg total) by mouth 2 (two) times daily for 7 days. saccharomyces boulardii 90039102664 QIE qieuser PANTOPRAZOLE SODIUM 40 MG TBEC Take 1 tablet (40 mg total) by mouth daily. pantoprazole 63118096242 QIE qieuser FUROSEMIDE 40 MG TABS Take 1 tablet (40 mg total) by mouth daily. furosemide 06998093109 QIE qieuser FOLIC ACID 400 MCG TABS Take 2 tablets (800 mcg total) by mouth daily. folic acid 81417975470 QIE qieuser VITAMIN B-12 1000 MCG TABS Take 1 tablet (1,000 mcg total) by mouth daily. cyanocobalamin (vitamin b-12) 68087006053 QIE qieuser NATURAL VITAMIN D-3 125 MCG (5000 UT) TABS Take 1 tablet (5,000 Units total) by mouth daily. cholecalciferol (vitamin d3) 71243553360 QIE qieuser ASPIRIN LOW DOSE 81 MG TBEC Take 1 tablet (81 mg total) by mouth daily. aspirin 79778539679 QIE qieuser apixaban (Eliquis) 5 mg Tab [...] down for the next 30 min.. alendronate 05705579372 QIE qieuser ACETAMINOPHEN 500 MG TABS Take 1 tablet (500 mg total) by mouth every 6 (six) hours as needed for up to 10 days. acetaminophen 70038748603 QIE qieuser Cubicin RF 500 mg intravenous solution 500mg IV Q24hrs/ OPAT daptomycin 44061212079 Jasmin Proctor RN CEFTRIAXONE SODIUM 2 GM SOLR 2gm IV Q24hrs/ OPAT ceftriaxone 62437937310 Jasmin Proctor RN Medications Administered No information [...] Procedures Code Procedure Name Date Entry Date CPT-89251 CMP B5722o,[id number] CBC with Differential 2023 CPT-43104 C- reactive protein CPT-26478 Sedimentation Rate (ESR) 202 08/10/07 CPT-coral Change [...]
--- OUTSIDE RECORDS SUMMARY | 2025-01-12 10:48 | XMS_ITS | Encounter Summary ---
Author Organization [employer] ([place], [place], [place], [place]) Address [address] [place] [address] Care Team Providers Care Sport Psychologist Name Role Phone Santosh Briones MD Primary Care Provider Santosh Briones MD Primary Care Provider [phone] Julius Cho MD Unavailable Lew Ross MD Unavailable Karlos Pringle PA-C Unavailable [phone] Encounter Details Date Type Department Care Team (Late st Contact Info) Description 12/19/2020 Transcribed Document [facility] [place] Family Medicine [facility] [place] [address] ProviderAle MD [address] [place] [address] Social History Tobacco Use Types Packs/Day Years Used Date Smoking Tobacco: Never Assessed Comments Unknown Sex and Gender Information Value Date Recorded Sex Assigned at Female 03/19/2022 10:49 AM DEPUTY SHERIFF CUSTODY Legal Sex Female 5:46 PM CDT Gender Identity Female 03/19/2022 10:49 AM DEPUTY SHERIFF CUSTODY Sexual Orientation Not on file documented as of this encounter Miscellaneous Notes * Cerner Conversion Note - Historical MD Alex - 12/19/2020 11:50 AM CDT [facility] [place] [address] JANIS FIGUEREDO :1965 Visit Time:12/19/2020 What [...] Comments Follow up Thursday as scheduled Where: [address] [place] [address] [address] [place] [address]- Medications What How Much When Instructions Next Dose acetaminophen-oxyCODONE (acetaminophen-oxyCODONE 325 mg-7.5 mg oral tablet) 1 Tablet(s) Oral Every 6 Hours as needed for for pain Pickup at [place] [address] apixaban (Eliquis 5 mg oral tablet) 1 Tablet(s) Oral Two Times A Day atorvastatin (atorvastatin 40 mg oral tablet) 1 Tablet(s) Oral Every Day cephalexin (Keflex 500 mg oral capsule) 1 Capsule(s) Oral Every 8 Hours Duration: 1 Day(s) Pickup at [place] [address] cyanocobalamin (Vitamin B12 1000 mcg oral tablet) [...] for as needed for nausea/vomiting Pickup at [place] [address] Pharmacy Information [place] [address]: [address] [facility] [phone] Take your medications faithfully. Do NOT skip [...] activities are safe for you. ??? Take dmhv-[id number]-[id number] and prescription medicines only as told by [...] provider. Document Revised: 04/23/2018 Document Reviewed: 12/04/2017 Guide[employer]itter Patient Education ?? 2020 [employer]. Emergency Awareness and Preventative Care STROKE is [...] Assistance with quitting is available by contacting 7-268-RLMZNOW. This is a free resource providing counseling, [...] was given the opportunity to ask questions. Patient/Market Research Manager Name: Patient/Market Research Manager Signature: Relationship to Patient: Clinician/Hospital Market Research Manager Signature: Date: documented in this encounter Plan of Treatment Upcoming Encounters Date Type Department Care Team (Late st Contact Info) Description 04/06/2025 9:00 AM EST Office Visit [facility] Cardiology [address] [place] [phone] [place] [address] [place] [address] [address] documented as of this encounter Visit Diagnoses Not on filedocumented in this encounter Care Teams Sport Psychologist Relationship Specialty Start Date End Date Santosh Briones MD [address] [place] [address] PCP - General General Internal Medicine 04/18/22 04/22/22 Santosh Briones MD [address] [facility] [place] [address] PCP - General General Internal Medicine 04/23/22 Julius Cho MD [address] [place] [address] Referring Physician Internal Medicine 04/23/22 Lew Ross MD [address] [place] [address] [id number] Cardiology 08/13/23 Karlos Pringle PA-C [address] [facility] [address] [place] [address] Cardiology 11/23/23 documented as of this encounter
--- OUTSIDE RECORDS SUMMARY | 2025-01-12 10:48 | XMS_ITS | Encounter Summary ---
Author Organization [employer] ([place], [place], [place], [place]) Address [address] [place] [address] Care Team Providers Care Jig Boring Machine Operator For Metal Name Role Phone Santosh Briones MD Primary Care Provider [phone] Santosh Briones MD Primary Care Provider [phone] Julius Cho MD Unavailable Lew Ross MD Unavailable Karlos Pringle PA-C Unavailable [phone] Encounter Details Date Type Department Care Team (Late st Contact Info) Description 12/19/2020 Transcribed Document [facility] [place] [facility] [place] [address] ProviderAle MD [address] [place] [address] Social History Tobacco Use Types Packs/Day Years Used Date Smoking Tobacco: Never Assessed Comments Unknown Sex and Gender Information Value Date Recorded Sex Assigned at Female 03/19/2022 10:49 AM APPETIZER PACKER Legal Sex Female 5:46 PM CDT Gender Identity Female 03/19/2022 10:49 AM APPETIZER PACKER Sexual Orientation Not on file documented as of this encounter Miscellaneous Notes * Cerner Conversion Note - Historical ProviderMD - 12/19/2020 8:35 AM CDT [facility] Main OR PACU Summary Primary Physician: MEE TUCKER, DPM-POD Finalized Date/Time: 12/21/20 20:53:34 Pt. Name: JANIS FIGUEREDO BILLIE DumontO.B./Sex: 1965 Female Med Rec #: [id number] Physician: MEE TUCKER DPM-POD Financial #: [id number] Pt. Type: O Room/Bed: /9 Admit/Disch: 12/19/20 06:32:00 - 12/19/20 12:11:00 Institution: [facility] Main OR PACU I Case Times Entry 1 In PACU I 12/19/20 10:25:00 Ready for PACU 12/19/20 11:05:00 Discharge Discharge from PACU 12/19/20 11:08:00 I Last Modified By: Sunshine Rowland RN-PATIENT CARE BEDSIDE NON-EXEMPT 12/19/20 11:55:39 [facility] Main OR PACU Acuity Entry 1 Start Time 12/19/20 11:05:00 Stop Time 12/19/20 11:08:00 Acuity Level [facility] PACU Acuity I Last Modified By: Letitia Dugan, Nurse Wardsperson 12/21/20 20:53:32 [facility] Main OR PACU Acuity Audit 12/21/20 20:53:32 Customs Compliance Analyst: [id number] Modifier: [id number] <*> Start Time 12/19/20 10:25:00 Finalized By: Letitia Dugan, Nurse International Account Executive Signatures Signed By: Sunshine Rowland RN-PATIENT CARE BEDSIDE NON-EXEMPT 12/19/20 11:55 Letitia Dugan, Nurse Wardsperson 12/21/20 20:53 Unfinalized History Date/Time Username Reason for Unfinalizing Freetext Reason for Unfinalizing 12/21/20 20:53 [id number] Correct Billing Electronically signed by Everardo [facility] Conversion Brush Worker Cerner at 08/22/2022 3:52 PM CDT documented in this encounter Plan of Treatment Upcoming Encounters Date Type Department Care Team (Late st Contact Info) Description 04/06/2025 9:00 AM EST Office Visit [facility] Cardiology [address] [place] [phone] [place] [address] [place] [address] [place] [address] documented as of this encounter Visit Diagnoses Not on filedocumented in this encounter Care Teams Jig Boring Machine Operator For Metal Relationship Specialty Start Date End Date Santosh Briones MD [address] [place], [place] [id number] PCP - General General Internal Medicine 04/18/22 04/22/22 Santosh Briones MD [address] [place], [place] [phone] PCP - General General Internal Medicine 04/23/22 Julius Cho MD [address] [address] Referring Physician Internal Medicine 04/23/22 Lew Ross MD [address] [facility] [address] [place], [place] [id number] Cardiology 08/13/23 Karlos Pringle PA-C [address] [facility] [address] [place] [address] Cardiology 11/23/23 documented as of this encounter
--- OUTSIDE RECORDS SUMMARY | 2025-01-12 10:48 | XMS_ITS | Encounter Summary ---
Author Organization [employer] ([place], [place], [place], [place]) Address [address] [place] [address] Care Team Providers Care Electronic Commerce Specialist Name Role Phone Santosh Briones MD Primary Care Provider [phone] Santosh Briones MD Primary Care Provider [phone] Julius Cho MD Unavailable Lew Ross MD Unavailable Karlos Pringle PA-C Unavailable [phone] Encounter Details Date Type Department Care Team (Late st Contact Info) Description 12/19/2020 Transcribed Document [facility] [place] [place] [address] ProviderAle MD [address] [place] [address] Social History Tobacco Use Types Packs/Day Years Used Date Smoking Tobacco: Never Assessed Comments Unknown Sex and Gender Information Value Date Recorded Sex Assigned at Female 03/19/2022 10:49 AM VIDEO PRODUCTION COORDINATOR Legal Sex Female 5:46 PM CDT Gender Identity Female 03/19/2022 10:49 AM VIDEO PRODUCTION COORDINATOR Sexual Orientation Not on file documented as of this encounter Miscellaneous Notes * Cerner Conversion Note - Historical ProviderMD - 12/19/2020 8:35 AM CDT [facility] Main OR IntraOp Summary Primary Physician: MEE TUCKER, DPM-POD Finalized Date/Time: 12/21/20 10:05:58 Pt. Name: JANIS FIGUEREDO BILLIE BandaB./Sex: 1965 Female Med Rec #: [id number] Physician: MEE TUCKER, DPM-POD Financial #: [id number] Pt. Type: O Room/Bed: /9 Admit/Disch: 12/19/20 06:32:00 - 12/19/20 12:11:00 Institution: [facility] IntraOp Case Attendance Entry 1 Entry 2 Entry 3 Case Attendee MEE TUCKER BOWEN, JON B, MD-YVETTE ROSEN APRN DPM-POD Role Performed Surgeon/Proceduralist, Anesthesiologist of TRANSPORT RN/Nurse Toll Transmission Worker First Record Time In 12/19/20 07:55:00 12/19/20 [...] Rn Poe, Kali, RN Baker, Amanda S, Hardwood Flooring Specialist Role Performed Relief Man, First Relief Man, Second Scrub, First Time In 12/19/20 07:55:00 [...] Case Attendee ROBERTO BELCHER RN Role Performed Relief Man, First Time In 12/19/20 09:45:00 Time Out 12/19/20 10:03:00 Procedure Achilles Tendon Repair(Right), Bone Spur Excision Other Attendee BREAK Superficial Wound Closed By: Last Modified By: Julienne Atkins Rn 12/19/20 10:28:51 [facility] IntraOp Case Attendance Audit 12/19/20 10:28:51 Drosophere Operator: [id number] Modifier: [id number] <+> Time Out 1 <*> Procedure [...] Tendon Repair(Right), Bone Spur Excision 12/19/20 10:03:51 Drosophere Operator: [id number] Modifier: [id number] <+> Time Out 7 <*> Procedure Achilles Tendon Repair(Right), Bone Spur Excision 12/19/20 09:47:32 Drosophere Operator: [id number] Modifier: [id number] <*> Procedure Achilles Tendon Repair(Right), Bone [...] Procedure <+> 7 Other Attendee 12/19/20 07:58:46 Drosophere Operator: [id number] Modifier: [id number] <+> 6 Procedure [facility] IntraOp Case Times Entry 1 Patient In Room Time 12/19/20 07:55:00 Out Room Time 12/19/20 10:23:00 Anesthesia Start Time 12/19/20 07:55:00 Stop Time 12/19/20 10:23:00 Surgery / Procedure Times Start Time 12/19/20 08:35:00 Stop Time 12/19/20 10:16:00 Last Modified By: Julienne Atkins Rn 12/19/20 10:28:41 [facility] IntraOp Case Times Audit 12/19/20 10:28:41 Drosophere Operator: [id number] Modifier: [id number] <+> 1 Out Room Time <+> 1 Stop Time <+> 1 Stop Time 12/19/20 08:37:30 Drosophere Operator: [id number] Modifier: [id number] <+> 1 Start Time [facility] IntraOp Cautery Entry 1 ESU Identification Cautery Type Monopolar ESU ID Number [id number] ID Type Hospital Number Cautery Settings Cut [...] Modified By: Julienne Atkins Rn 12/19/20 07:59:56 [facility] IntraOp Communication Entry 1 Communication To Family/Significant other Communication By Domingo Conklin RN Date and Time 12/19/20 08:37:00 Last Modified By: Julienne Atkins Rn 12/19/20 08:37:40 [facility] IntraOp Counts Verification Entry 1 Procedure Achilles Tendon Repair(Right), Bone Spur Excision Count Info Count Type Sponge, Sharps Counts Verification Baseline/pre-procedure Sequence Count Results Not Applicable Counts Performed By Count Performed By Letitia Washington (Scrub) Hardwood Flooring Specialist Count Performed By Domingo Conklin RN (RN) Last Modified By: Julienne Atkins Rn 12/19/20 08:00:18 [facility] IntraOp Counts Final Entry 1 Procedure Achilles Tendon Repair(Right), Bone Spur Excision Final Count Info Count Type Sponge, Sharps Counts Verification Skin Closure/end of Sequence procedure Count Results Correct, surgeon notified Counts Performed By Count Performed By Letitia Washington (Scrub) Hardwood Flooring Specialist Count Performed By Julienne Atkins Rn (RN) Last Modified By: Julienne Atkins Rn 12/19/20 10:05:43 [facility] IntraOp Cultures and Spec Summary Entry 1 Cultrures and Specimens Specimen Ordered: Yes Test(s) Routine/Path-Lab Requested/Final Disposition Last Modified By: Julienne Atkins Rn 12/19/20 09:32:55 General Comments: A. RIGHT FOOT BONE [facility] IntraOp Delays Entry 1 Delay Reason Patient, other (document in comment) Duration 25 Minute(s) Comment PATIENT GETTING NERVE BLOCK Last Modified By: Julienne Atkins Rn 12/19/20 08:00:49 [facility] IntraOp Departure from OR Entry 1 Integumentary Assessment Integumentary WDL Assessment WDL Transfer/Handoff Transfer to PACU Phase I Handoff Method Bedside/Face to face, Phone call Post-op Transport Stretcher/Gurney Via Patient Transport YVETTE CEJA, Accompanied by Wilbert CLEVELAND Tracy R, Viri, Domingo Conklin RN Last Modified By: Julienne Atkins Rn 12/19/20 08:01:04 [facility] IntraOp Drains and Tubes Entry 1 Device Type Concord Size 1/4 Drain/Tube Activity Inserted Drain/Tube Suction Modale Drain/Tube Drainage Red Device Location RIGHT LOWER LEG Method of Drainage Modale Last Modified By: Julienne Atkins Rn 12/19/20 08:49:09 [facility] IntraOp Dressing and Packing Entry 1 Type Dressing Location RIGHT FOOT Wound Dressing Item 4x4's, Kerlix/Janie, Johnnie, Other Applied By MEE TUCKER, DPOswald-POD Other Comments SILVER DRESSING Last Modified By: Julienne Atkins Rn 12/19/20 10:05:02 [facility] IntraOp Dressing and Packing Audit 12/19/20 10:05:02 Drosophere Operator: [id number] Modifier: [id number] <*> Wound Dressing Item 4x4's, Kerlix/Janie, Johnnie 1 <+> Applied By 1 <*> Other Comments ACTICOAT [facility] IntraOp Fire Risk Assessment Entry 1 [...] Modified By: Julienne Atkins Rn 12/19/20 08:01:48 [facility] IntraOp General Case Pot Fisher 1 Case Information OR OR 02 [facility] Case Level 1 Room Verified Yes Wound Class I - Clean Specialty Podiatry Anesthesia Type General ASA Class 3 Diagnosis Preop Diagnosis RIGHT ACHILLES INJURY Postop Same As Preop No Postop Diagnosis SEE MD NOTES Last Modified By: Julienne Atkins Rn 12/19/20 08:02:15 [facility] IntraOp Implant Log Entry 1 Entry 2 Entry 3 Type Tissue Implant Implant (Synthetic) Implant (Synthetic) (Biologic) Implant Log Implant Type Hardware Hardware Tissue Implant Type Tissue Implant IMP STRAVIX [id number] ARTHREX ANCHOR KT IB PLUS BC W/CC FT Identification [id number] Description Implant Quantity 1 2 1 Implant Site RIGHT ANKLE RIGHT FOOT RIGHT FOOT Implant Identification Model Number Implant [id number] Identification Serial Number Implant [id number] Identification Lot Number Implant [employer] ARTHREX Arthrex Identification Quilt Sewer Name: Implant [id number] Identification Catalog Number Implant Size Implant Has an Yes Yes Yes Expiration Date Implant Expiration 04/13/23 08/01/22 07/01/22 Date Wasted Radioactive Material Time Implanted Tissue Implant Continue for Tissue Implant Documentation Tissue Identification Number Graft Prep Per Yes Quilt Sewer Instructions: Tissue Preparation N/A Method: Reconstitution Solution: Reconstitution Solution Lot Number Reconstitution Solution Expiration Date: Thawing Solution Thawing Solution Lot Number Thawing Solution Expiration Date Preparation Materials, Other Preparation Materials, Other Lot Number Preparation Materials, Other Expiration Date MEE Ash, Prepared/Processed DPM-POD By Quilt Sewer Yes Paperwork Completed Implant Type Comment Last Modified By: AtkinsJulienne Rn Compton, Tracy R, Rn Compton, Tracy R, Rn 12/19/20 09:32:32 12/19/20 09:32:32 12/19/20 09:32:32 Entry 4 Type Implant (Synthetic) Implant Log Implant Type Tissue Implant Type Implant ARTHREX SUTURE TAPE REF Identification [id number] Description Implant Quantity 1 Implant Site OPSITE Implant Identification Model Number Implant Identification Serial Number Implant [id number] Identification Lot Number Implant Identification Quilt Sewer Name: Implant Identification Catalog Number Implant Size Implant Has an Yes Expiration Date Implant Expiration 08/31/25 Date Wasted Radioactive Material Time Implanted Tissue Implant Continue for Tissue Implant Documentation Tissue Identification Number Graft Prep Per Quilt Sewer Instructions: Tissue Preparation Method: Reconstitution Solution: Reconstitution Solution Lot Number Reconstitution Solution Expiration Date: Thawing Solution Thawing Solution Lot Number Thawing Solution Expiration Date Preparation Materials, Other Preparation Materials, Other Lot Number Preparation Materials, Other Expiration Date Tissue Prepared/Processed By Quilt Sewer Paperwork Completed Implant Type Comment Last Modified By: Julienne Atkins Rn 12/19/20 10:03:35 [facility] IntraOp Implant Log Audit 12/19/20 10:03:35 Drosophere Operator: [id number] Modifier: [id number] <+> 4 Implant Identification Description <+> 4 Implant Identification Lot Number <+> 4 Implant Expiration Date <+> 4 Implant Site <+> 4 Implant Quantity <+> 4 Implant Has an Expiration Date <+> 4 Type [facility] IntraOp Intraoperative Assessment Entry 1 Handoff [...] Modified By: Julienne Atkins Rn 12/19/20 08:03:12 [facility] IntraOp Intraoperative Equipment Entry 1 Type Equipment Equipment Equipment Yumi Suction System ID Number [id number] Setting ON Intraop Monitoring Blood Pressure Non-Invasive BP Device Source Antiembolic Devices Scopes Photo/Video Documentation Last Modified By: Julienne Atkins Rn 12/19/20 08:03:54 [facility] IntraOp Medication Admin Entry 1 Medication/Irrigant LAILA IRR NACL 0.9PCT 2000ML [facility]-978339 Time Administered 12/19/20 08:35:00 Route of IRRIGATION Administration Dose Administered By MEE TUCKER DPM-POD Procedure Irrigation Last Modified By: Julienne Atkins Rn 12/19/20 09:04:22 [facility] IntraOp Medication Admin Audit 12/19/20 09:04:22 Drosophere Operator: [id number] Modifier: [id number] 1 <*> Medication/Irrigant LAILA IRR NACL 0.9PCT 2000ML [facility]-453860 1 <+> Time Administered [facility] IntraOp Patient Positioning Entry 1 Procedure [...] Modified By: Julienne Atkins Rn 12/19/20 08:05:17 [facility] IntraOp Sign In Entry 1 Patient, [...] Modified By: Julienne Atkins Rn 12/19/20 08:05:29 [facility] IntraOp Sign Out Entry 1 RN [...] Modified By: Julienne Atkins Rn 12/19/20 10:28:48 [facility] IntraOp Sign Out Audit 12/19/20 10:28:48 Drosophere Operator: [id number] Modifier: [id number] <+> 1 RN Sign Out Signature Date/Time [facility] IntraOp Skin Prep Entry 1 Procedure Achilles Tendon Repair(Right), Bone Spur Excision Prescribed Yes Pre-Surgical Prep Completed Prep Area RIGHT FOOT AND LOWER LEG TO KNEE Intraop Prep Integumentary WDL Assessment WDL Prep Agents Chloraprep Prep by Julienne Atkins Rn Hair Removal Methods No hair removal performed Last Modified By: Julienne Atkins Rn 12/19/20 08:08:22 [facility] IntraOp Surgical Procedures Entry 1 Entry [...] Tracy R, Rn 12/19/20 10:28:50 12/19/20 10:28:50 [facility] IntraOp Surgical Procedures Audit 12/19/20 10:28:50 Drosophere Operator: [id number] Modifier: [id number] <+> 1 Stop <+> 2 Stop [facility] IntraOp Temp Regulation Devices Entry 1 Temp Regulation Temperature Forced Air Warming Regulation Device device, Warm blankets Temperature 984592 Regulation Device Serial/Unit Number Temperature Upper body Regulation Site Temperature Device on Setting Temperature YVETTE CEJA APRN Regulation Device Applied by Last Modified By: Julienne Atkins Rn 12/19/20 08:39:43 [facility] IntraOP Time Out Entry 1 Procedure [...] Modified By: Julienne Atkins Rn 12/19/20 08:38:12 [facility] IntraOp Tourniquet Entry 1 Type Pneumatic Serial/Unit Number [id number] Setting 300 mmHg Pheumatic Yes Tourniquet Checked Per Protocol Placement Thigh, right upper Skin Protection - Yes Padded Under Cuff Applied By Julienne Atkins Rn Removed By MEE TUCKER DPM-POD Times Start Time 12/19/20 08:34:00 Stop Time 12/19/20 10:15:00 Total Time 101 calculated manually (Mins) Last Modified By: Julienne Atkins Rn 12/19/20 10:16:00 [facility] IntraOp Tourniquet Audit 12/19/20 10:16:00 Drosophere Operator: [id number] Modifier: [id number] <+> 1 Total Time calculated manually (Mins) [...] Description 04/06/2025 9:00 AM EST Office Visit [facility] Cardiology [address] [place] [address] [place] [address] [place] [address] [address] [place], [place] [id number] documented as of this encounter Visit Diagnoses Not on filedocumented in this encounter Care Teams Electronic Commerce Specialist Relationship Specialty Start Date End Date Santosh Briones MD [address] [place], [place] [id number] PCP - General General Internal Medicine 04/18/22 04/22/22 Santosh Briones MD [address] [place], [place] [address] PCP - General General Internal Medicine 04/23/22 Julius Cho MD [address] [place] [address] Referring Physician Internal Medicine 04/23/22 [place] [address] [place] [address] [address] [place], [place] [address] Cardiology 08/13/23 Karlos Pringle PA-C [address] [facility] [address] [place] [address] Cardiology 11/23/23 documented as of this encounter
--- OUTSIDE RECORDS SUMMARY | 2025-01-12 10:48 | XMS_ITS | Encounter Summary ---
Author Organization [employer] ([place], [place], [place], [place]) Address [address] [place] [address] Care Team Providers Care Design Release Engineer Name Role Phone Santosh Briones MD Primary Care Provider [phone] Julius Cho MD Unavailable Lew Ross MD Unavailable Karlos Pringle PA-C Unavailable [phone] Reason for Visit * Reason Onset Date Comments Medication Management 01/10/2025 Encounter Details Date Type Department Care Team (Late st Contact Info) Description 01/10/2025 Telephone [facility] Cardiology [address] [place] [address] Lesly Sanchez, CHANNELER RUNNER [address] [place] [address] Medication Management Social History Tobacco [...] speak a language other than Angolan at ho id? No 08/17/2023 Do you want help with [...] Sex Assigned at Female 03/19/2022 10:49 AM FORCE ADJUSTMENT SUPERVISOR Legal Sex Female 5:46 PM CDT Gender Identity Female 03/19/2022 10:49 AM FORCE ADJUSTMENT SUPERVISOR Sexual Orientation Not on file documented as of this encounter Miscellaneous Notes * Telephone Encounter - Leny Corea 01/11/2025 1:02 PM EDT Patient left VM wanting to discuss medication changes * Telephone Encounter - Arturo Crescencio - 01/10/2025 2:36 PM EDT Lesly would you like for me to send in the script for the Mounjaro even after the PA patient states medication is too expensive * Telephone Encounter - Doris Jean - 01/10/2025 12:16 PM EDT Patient states the wegovy is too expensive, she is asking if she can get the mounjaro instead. Please call [phone] documented in this encounter Plan of Treatment Upcoming Encounters Date Type Department Care Team (Late st Contact Info) Description 04/06/2025 9:00 AM EST Office Visit [facility] Cardiology [address] [place] [address] Lew Ross MD [address] [place] [address] [place] [address] documented as of this encounter Visit Diagnoses Not on filedocumented in this encounter Care Teams Design Release Engineer Relationship Specialty Start Date End Date Santosh Briones MD [address] [facility] [place] [address] PCP - General General Internal Medicine 04/23/22 Julius Cho MD [address] [place] [address] Referring Physician Internal Medicine 04/23/22 Lew Ross MD [address] [place] [address] [place] [address] Cardiology 08/13/23 Karlos Pringle PA-C [address] , [facility] [address] [place] [address] Cardiology 11/23/23 documented as of this encounter
--- OUTSIDE RECORDS SUMMARY | 2025-01-12 10:48 | XMS_ITS | Encounter Summary ---
Author Organization [employer] ([place], [place], [place], [place]) Address [address] [place] [address] Care Team Providers Care Tube Cleaning Operator Name Role Phone Santosh Briones MD Primary Care Provider [phone] Santosh Briones MD Primary Care Provider [phone] Julius Cho MD Unavailable Lew Ross MD Unavailable Karlos Pringle PA-C Unavailable [phone] Encounter Details Date Type Department Care Team (Late st Contact Info) Description 12/19/2020 Transcribed Document [facility] [place] Medicine [facility] [place] [address] ProviderAle MD [address] [place] [address] Social History Tobacco Use Types Packs/Day Years Used Date Smoking Tobacco: Never Assessed Comments Unknown Sex and Gender Information Value Date Recorded Sex Assigned at Female 03/19/2022 10:49 AM PANEL EDGE PAINTER Legal Sex Female 5:46 PM CDT Gender Identity Female 03/19/2022 10:49 AM PANEL EDGE PAINTER Sexual Orientation Not on file documented as of this encounter Miscellaneous Notes * Cerner Conversion Note - Historical ProviderMD - 12/19/2020 3:48 PM CDT DATE OF PROCEDURE: 12/19/2020 1965 SURGEON: Massimo Blake DPM INTERVENTION ANALYST: None. PREOPERATIVE DIAGNOSES: Right Achilles tendon tear; [...] retracted as necessary. We then placed a Gorham drain. We closed up the incision with [...] We will continue to follow this patient. /[id number] Keys YONG Weston/JALEEL / DIONE / MODL /[id number] Electronically signed by Everardo, [facility] Conversion Facilities Plant Engineer Cerner at 08/22/2022 4:10 PM CDT documented in this encounter Plan of Treatment Upcoming Encounters Date Type Department Care Team (Late st Contact Info) Description 04/06/2025 9:00 AM EST Office Visit [facility] Cardiology [address] [place], [place] [address] Lew Ross MD [address] [place] [address] [address] [place] [address] documented as of this encounter Visit Diagnoses Not on filedocumented in this encounter Care Teams Tube Cleaning Operator Relationship Specialty Start Date End Date Santosh Briones MD [address] [place], [place] [phone] PCP - General General Internal Medicine 04/18/22 04/22/22 Santosh Briones MD [address] [place], [place] [id number] PCP - General General Internal Medicine 04/23/22 Julius Cho MD [address] [address] Referring Physician Internal Medicine 04/23/22 Lew Ross MD [address] [place] [address] [address] [place], [place] [address] Cardiology 08/13/23 Karlos Pringle PA-C [address] [place] [address], [address] [place] [address] Cardiology 11/23/23 documented as of this encounter
--- OUTSIDE RECORDS SUMMARY | 2025-01-12 10:48 | XMS_ITS | Encounter Summary ---
Author Organization [employer] ([place], [place], [place], [place]) Address [address] [place] [address] Care Team Providers Care Malted Milk Mixer Name Role Phone Santosh Briones MD Primary Care Provider [phone] Santosh Briones MD Primary Care Provider Julius Cho MD Unavailable Lew Ross MD Unavailable Karlos Pringle PA-C Unavailable [phone] Encounter Details Date Type Department Care Team (Late st Contact Info) Description 12/19/2020 Transcribed Document [facility] [place] [address] ProviderAle MD [address] [place] [address] Social History Tobacco Use Types Packs/Day Years Used Date Smoking Tobacco: Never Assessed Comments Unknown Sex and Gender Information Value Date Recorded Sex Assigned at Female 03/19/2022 10:49 AM DIRECTOR IT Legal Sex Female 5:46 PM CDT Gender Identity Female 03/19/2022 10:49 AM DIRECTOR IT Sexual Orientation Not on file documented as [...] activities are safe for you. ??? Take [id number] and prescription medicines only as told by [...] provider. Document Revised: 04/23/2018 Document Reviewed: 12/04/2017 [employer] Patient Education ? 2019 [employer]. documented in this encounter Plan of Treatment Upcoming Encounters Date Type Department Care Team (Late st Contact Info) Description 04/06/2025 9:00 AM EST Office Visit [facility] Cardiology [address] [place] [address] [place] [address] [place] [address] [address] [place] [address] documented as of this encounter Visit Diagnoses Not on filedocumented in this encounter Care Teams Malted Milk Mixer Relationship Specialty Start Date End Date Santosh Briones MD [address] [place], [place] [id number] PCP - General General Internal Medicine 04/18/22 04/22/22 Santosh Briones MD [address] [place], [place] [id number] PCP - General General Internal Medicine 04/23/22 Julius Cho MD [address] [place] [address] Referring Physician Internal Medicine 04/23/22 Lew Ross MD [address] [facility] [address] [place] [address] Cardiology 08/13/23 Karlos Pringle PA-C [address] [place] [address] Cardiology 11/23/23 documented as of this encounter
--- OUTSIDE RECORDS SUMMARY | 2025-01-12 10:48 | XMS_ITS | Encounter Summary ---
Author Organization [employer] ([place], [place], [place], [place]) Address [address] [address] Care Team Providers Care Mechanical Drafter Name Role Phone Santosh Briones MD Primary Care Provider [phone] Julius Cho MD Unavailable Lew Ross MD Unavailable Karlos Pringle PA-C Unavailable [phone] Reason for Visit * Reason Onset Date Comments Advice Only 01/10/2025 Encounter Details Date Type Department Care Team (Late st Contact Info) Description 01/10/2025 Telephone [facility] Cardiology [address] [place] [address] Lesly Sanchez, COMMUNITY MENTAL HEALTH WORKER [address] [place] [address] Advice Only Social History Tobacco [...] Do you speak a language other than [facility]ian at [facility]? No 08/17/2023 Do you [...] Sex Assigned at Female 03/19/2022 10:49 AM FUSING MACHINE FEEDER Legal Sex Female 5:46 PM CDT Gender Identity Female 03/19/2022 10:49 AM FUSING MACHINE FEEDER Sexual Orientation Not on file documented as of this encounter Miscellaneous Notes * Telephone Encounter - Arturo Prather - 01/10/2025 9:21 AM EDT Left detailed message for patient that the last office note where Lesly cleared patient for upcoming procedure 12/30 was faxed over to [facility] if she have any question she can contact our office back * Telephone Encounter - Devorah Fields - 01/10/2025 8:59 AM EDT Patient was calling needing her Cardiac Clearance [facility] at [facility] [phone] documented in this encounter Plan of Treatment Upcoming Encounters Date Type Department Care Team (Late st Contact Info) Description 04/06/2025 9:00 AM EST Office Visit [facility] Cardiology [address] [place] [address] Lew Ross MD [address] [place] [address] [id number] documented as of this encounter Visit Diagnoses Not on filedocumented in this encounter Care Teams Mechanical Drafter Relationship Specialty Start Date End Date Santosh Briones MD [address] [facility] [place] [address] PCP - General General Internal Medicine 04/23/22 Julius Cho MD [address] [place] [address] Referring Physician Internal Medicine 04/23/22 Lew Ross MD [address] [place] [address] [address] Cardiology 08/13/23 Karlos Pringle PA-C [address] [place] [address], [address] [place] [address] Cardiology 11/23/23 documented as of this encounter
--- OUTSIDE RECORDS SUMMARY | 2025-01-12 10:49 | XMS_ITS | Encounter Summary ---
Author Organization [employer] ([place], [place], [place], [place]) Address [address] [place] [address] Care Team Providers Care Agricultural Extension Agent Name Role Phone Santosh Briones MD Primary Care Provider [phone] Santosh Briones MD Primary Care Provider [phone] Julius Cho MD Unavailable Lew Ross MD Unavailable Karlos Pringle PA-C Unavailable [phone] Encounter Details Date Type Department Care Team (Late st Contact Info) Description 12/19/2020 Transcribed Document [facility] [place] [facility] [place] [address] ProviderAle MD [address] [place] [address] Social History Tobacco Use Types Packs/Day Years Used Date Smoking Tobacco: Never Assessed Comments Unknown Sex and Gender Information Value Date Recorded Sex Assigned at Female 03/19/2022 10:49 AM DIRECTOR HUMAN SERVICES Legal Sex Female 5:46 PM CDT Gender Identity Female 03/19/2022 10:49 AM DIRECTOR HUMAN SERVICES Sexual Orientation Not on file documented as of this encounter Miscellaneous Notes * Cerner Conversion Note - Historical ProviderMD - 12/19/2020 7:30 AM CDT [facility] Main OR Preop Summary Primary Physician: MEE TUCKER, DPM-POD Finalized Date/Time: 12/19/20 07:52:13 Pt. Name: JANIS FIGUEREDO BILLIE /Sex: 1965 Female Med Rec #: [id number] Physician: MEE TUCKER DPM-POD Financial #: [id number] Pt. Type: O Room/Bed: /9 Admit/Disch: 12/19/20 06:32:00 - Institution: [facility] PreOp Case Times Entry 1 In Preop 12/19/20 05:50:00 Ready for Holding n/a Room Patient Ready for 12/19/20 07:48:00 Surgery Patient Out of Preop 12/19/20 07:52:00 Patient Out of n/a Holding Room Last Modified By: Pérez Gil Rn 12/19/20 07:52:11 [facility] PreOp Case Times Audit 12/19/20 07:52:11 Technical Manager: [id number] Modifier: [id number] <+> 1 Patient Out of Preop <+> 1 Patient Ready for Surgery Finalized By: Pérez Gil, Rn Document Signatures Signed By: Pérez Gil Rn 12/19/20 07:52 Electronically signed by Ever[facility] Conversion Teamcenter Solution Architect Cerner at 08/22/2022 3:49 PM CDT documented in this encounter Plan of Treatment Upcoming Encounters Date Type Department Care Team (Late st Contact Info) Description 04/06/2025 9:00 AM EST Office Visit [facility] Cardiology [address] [place] [address] Lew Ross MD [address] [place] [address] [address] [place] [address] documented as of this encounter Visit Diagnoses Not on filedocumented in this encounter Care Teams Agricultural Extension Agent Relationship Specialty Start Date End Date Santosh Briones MD [address] [facility] [address] PCP - General General Internal Medicine 04/18/22 04/22/22 Santosh Briones MD [address] [facility] [place] [address] PCP - General General Internal Medicine 04/23/22 Julius Cho MD [address] [place] [address] Referring Physician Internal Medicine 04/23/22 Lew Ross MD [address] [facility] [address] [place] [address] Cardiology 08/13/23 Karlos Pringle PA-C [address] [place] [address], [facility] [address] [place] [address] Cardiology 11/23/23 documented as of this encounter
--- OUTSIDE RECORDS SUMMARY | 2025-01-12 10:49 | XMS_ITS | Encounter Summary ---
Author Organization [email or web address] ([place], [place], [place], [place]) Address [address] [place] [address] Care Team Providers Care Internet Retailer Name Role Phone Santosh Briones MD Primary Care Provider [phone] Santosh Briones MD Primary Care Provider [phone] Julius Cho MD Unavailable Lew Ross MD Unavailable Karlos Pringle PA-C Unavailable [phone] Encounter Details Date Type Department Care Team (Late st Contact Info) Description 12/19/2020 Transcribed Document [facility] [place] [facility] [place] [address] ProviderAle MD [address] [place] [address] Social History Tobacco Use Types Packs/Day Years Used Date Smoking Tobacco: Never Assessed Comments Unknown Sex and Gender Information Value Date Recorded Sex Assigned at Female 03/19/2022 10:49 AM TRACTOR ENGINE ASSEMBLER Legal Sex Female 5:46 PM CDT Gender Identity Female 03/19/2022 10:49 AM TRACTOR ENGINE ASSEMBLER Sexual Orientation Not on file documented as [...] - 12/19/2020 7:49 EDT Electronically signed by [facility] Conversion Bonding Machine Tender Cerner at 08/22/2022 3:50 PM CDT documented in this encounter Plan of Treatment Upcoming Encounters Date Type Department Care Team (Late st Contact Info) Description 04/06/2025 9:00 AM EST Office Visit [facility] Cardiology [address] [place], [place] [phone] [place] [address] [place] [address] [address] [place] [address] documented as of this encounter Visit Diagnoses Not on filedocumented in this encounter Care Teams Internet Retailer Relationship Specialty Start Date End Date Santosh Briones MD [address] [place] [address] PCP - General General Internal Medicine 04/18/22 04/22/22 Santosh Briones MD [address] [facility] [place] [address] PCP - General General Internal Medicine 04/23/22 Julius Cho MD [address] [place] [address] Referring Physician Internal Medicine 04/23/22 Lew Ross MD [address] [facility] [address] [place] [address] Cardiology 08/13/23 Karlos Pringle PA-C [address], [facility] [address] [place] [address] Cardiology 11/23/23 documented as of this encounter
--- OUTSIDE RECORDS SUMMARY | 2025-01-12 10:49 | XMS_ITS | Encounter Summary ---
Author Organization [employer] ([place], [place], [place], [place]) Address [address] [place] [address] Care Team Providers Care Retail Office Associate Name Role Phone Santosh Briones MD Primary Care Provider [phone] Santosh Briones MD Primary Care Provider [phone] Julius Cho MD Unavailable Lew Ross MD Unavailable Karlos Pringle PA-C Unavailable [phone] Encounter Details Date Type Department Care Team (Late st Contact Info) Description 12/19/2020 Transcribed Document [facility] [place] [facility] [address] ProviderAle MD [address] [place] [address] Social History Tobacco Use Types Packs/Day Years Used Date Smoking Tobacco: Never Assessed Comments Unknown Sex and Gender Information Value Date Recorded Sex Assigned at Female 03/19/2022 10:49 AM SNORKELLING INSTRUCTOR Legal Sex Female 5:46 PM CDT Gender Identity Female 03/19/2022 10:49 AM SNORKELLING INSTRUCTOR Sexual Orientation Not on file documented as of this encounter Miscellaneous Notes * Cerner Conversion Note - Historical ProviderMD - 12/19/2020 8:35 AM CDT [facility] Main OR PostOp Summary Primary Physician: MEE TUCKER, DPM-POD Finalized Date/Time: 12/19/20 12:16:40 Pt. Name: JANIS FIGUEREDO BILLIE /Sex: 1965 Female Med Rec #: [id number] Physician: MEE TUCKER DPM-POD Financial #: [id number] Pt. Type: O Room/Bed: /9 Admit/Disch: 12/19/20 06:32:00 - Institution: [facility] Main OR PostOp Case Times Entry 1 In PACU II 12/19/20 11:10:00 Ready for PACU II 12/19/20 12:11:00 Discharge Discharge from PACU 12/19/20 12:11:00 II Last Modified By: SIOMARA ALLEN RN 12/19/20 12:16:39 [facility] Main OR PostOp Case Times Audit 12/19/20 12:16:39 Cripple Worker: [id number] Modifier: [id number] <+> 1 Ready for PACU II Discharge <+> 1 Discharge from PACU II Finalized By: SIOMARA ALLEN RN Document Signatures Signed By: SIOMARA ALLEN RN 12/19/20 12:16 documented in this encounter Plan of Treatment Upcoming Encounters Date Type Department Care Team (Late st Contact Info) Description 04/06/2025 9:00 AM EST Office Visit [facility] Cardiology [address] [place] [address] Lew Ross MD [address] [place] [address] [address] [place] [address] documented as of this encounter Visit Diagnoses Not on filedocumented in this encounter Care Teams Retail Office Associate Relationship Specialty Start Date End Date Santosh Briones MD [address] [facility] [place] [address] PCP - General General Internal Medicine 04/18/22 04/22/22 Santosh Briones MD [address] [facility] [place] [address] PCP - General General Internal Medicine 04/23/22 Julius Cho MD [address] [place] [address] Referring Physician Internal Medicine 04/23/22 Lew Ross MD [address] [facility] [address] [place] [address] Cardiology 08/13/23 Karlos Pringle PA-C [address], [address] [place] [address] Cardiology 11/23/23 documented as of this encounter
--- OUTSIDE RECORDS SUMMARY | 2025-01-12 10:50 | XMS_ITS | Clinical Summary ---
Author Organization [facility] Address [address] [place] [address] Care Team Providers Care Welder Explosion Name Role Phone Santosh Briones MD Primary Care Provider [phone] Social History Tobacco Use Types Packs/Day Years [...] help finding or keeping work or a dominki b? Not on file 02/09/2023 Disabilities Answer [...] Payer (Ef fective 2024-Present) Name:Janis Lorenzana Member ID:[id number] Relation to Subscriber:Self Name:Christie Lorenzanalissette Suero Subscriber ID:[id number] Payer ID:[id number] Group ID:Not on file Type:Not on file Address: [address] MEDICARE ADVANTAGE HMO NON PAR Care Teams Welder Explosion Relationship Specialty Start Date End Date Santosh Briones MD PCP - General Internal Medicine 02/27/22
--- OUTSIDE RECORDS SUMMARY | 2025-01-12 10:50 | XMS_ITS | Encounter Summary ---
Author Organization [employer] ([place], [place], [place], [place]) Address [address] [place] [address] Care Team Providers Care Valve And Regulator Repairer Name Role Phone Santosh Briones MD Primary Care Provider [phone] Santosh Briones MD Primary Care Provider [phone] Julius Cho MD Unavailable Lew Ross MD Unavailable Karlos Pringle PA-C Unavailable [phone] Encounter Details Date Type Department Care Team (Late st Contact Info) Description 12/14/2020 Transcribed Document [facility] [facility] [place] [address] ProviderAle MD [address] [place] [address] Social History Tobacco Use Types Packs/Day Years Used Date Smoking Tobacco: Never Assessed Comments Unknown Sex and Gender Information Value Date Recorded Sex Assigned at Female 03/19/2022 10:49 AM BIOMEDICAL REPAIR TECHNICIAN Legal Sex Female 5:46 PM CDT Gender Identity Female 03/19/2022 10:49 AM BIOMEDICAL REPAIR TECHNICIAN Sexual Orientation Not on file documented [...] Source : Measured Height Entry Format : Goldonna Height, Feet : 5 ft(Converted to: 152 cm, 60 Inch) Height, Inches : 7 Inch(Converted to: 0 ft 7 Inch, 17.78 cm) Clinical Height : 170.18 cm Weight Source : Standing scale Weight Entry Format : Goldonna Clinical Dosing Weight : 116.82 kg Weight, Pounds : 257 lb Body Surface Area (BSA) : 2.25 m2 Body Mass Index : 40.3 kg/m2 (>HHI) [place] Body Weight : 61 kg PETROS HERNDON RN - 12/17/2020 10:31 EDT Health Histories Smoking Status : Never (less than 100 in lifetime; none in last 30 days) Smokeless Tobacco Status : Never Implant/Device Type, Oil Inspector and Model : breast implants IVC [...] Tru Barkley Rn - 12/14/2020 10:55 EDT [place] Suicide Severity Rating Scale (C-SSRS) CSSRS Past [...] Info Legal Guardian : Spouse Support Person/Patient Manufacturing Project Manager : Yes Support Person/Pt Rep Name : Jose Ramon Lorenzana - Support Person/Pt Rep Contact Information : [phone] Want Family/Rep/Phys Notified of Admit : No Tru Barkley Rn - 12/14/2020 10:55 EDT Emergency Contact #1 : Jose Ramon Lorenzana Emergency Contact #1 Emergency Contact #1 Relationship : Roberto Gilalissa Black Rn - 12/19/2020 6:14 EDT Emergency Contact #2 : ` Emergency Contact #2 Phone Number : ` Emergency Contact #2 Relationship : ` Information Obtained From : Patient Primary Language : Botswanan Communication Barrier : None Web Page Designer Needed : No Tru Barkley Rn - [...] Tru Barkley Rn - 12/14/2020 10:55 EDT documented in this encounter Plan of Treatment Upcoming Encounters Date Type Department Care Team (Late st Contact Info) Description 04/06/2025 9:00 AM EST Office Visit [facility] Cardiology [address] [place] [phone] [place] [address] [place] [address] [address] [place], [place] [id number] documented as of this encounter Visit Diagnoses Not on filedocumented in this encounter Care Teams Valve And Regulator Repairer Relationship Specialty Start Date End Date Santosh Briones MD [address] [place], [place] [phone] PCP - General General Internal Medicine 04/18/22 04/22/22 Santosh Briones MD [address] [place], [place] [phone] PCP - General General Internal Medicine 04/23/22 Julius Cho MD [address] [place] [address] Referring Physician Internal Medicine 04/23/22 Lew Ross MD [address] [facility] [address] [phone] Cardiology 08/13/23 Karlos Pringle PA-C [address] [facility] [address] [place] [address] Cardiology 11/23/23 documented as of this encounter
--- OUTSIDE RECORDS SUMMARY | 2025-01-12 10:50 | XMS_ITS | CCD ---
Author Name Interface, F1Fmanyiy lity Address [address] [place] [address] Organization [facility] Address [address] [place] [address] [address] [place] [address] Care Team Providers Care Medical Scientific Liaison Name Role Phone Misbah STEWART, Fuentes Unavailable Unavailable Allergies and Adverse Reactions Medication/Group Name Reaction Severity Date morphine 05/21/2022 Bactrim 05/21/2022 Reason for Visit FOLLOW UP Medications Date Name Route Dose Frequency Instructions Start Date End Date Status Fill Status Indication 05/22 Atorvasta tin Oral active 05/22 Lisinopri l Oral stopped 05/21 Pantopraz ole (Sodium) Oral Delayed Release active 05/22 Nitroglyc danni Sublingua l active 05/22 Nirmatrel vir-Riton avir Dose Pack 300 mg (150 mg x 2)-100 mg active 05/21 Cyanocoba leydi Oral active 05/21 Furosemid e Oral active 05/21 Lisinopri l Oral active 05/21 Meloxicam Oral active 05/22 Methocarb dina Oral active 05/21 Apixaban Oral active 05/22 Hydrocodo ne-Acetam inophen Oral 10 mg-325 mg active 05/22 Nystatin Oral active 05/22 Gabapenti n Oral active Problems Diagnosis Status Date of Diagnosis Resolution Date History of deep vein thrombosis (situation) Active Anemia Active Deep vein thrombosis Active HTN Active longterm current use of anticoagulants Active Iron deficiency anemia (disorder) Active Hypotension Active Essential hypertension (disorder) Active Lymphedema (disorder) Active Social History Date Name Value 07/28/2019 Sex Female
--- OUTSIDE RECORDS SUMMARY | 2025-01-12 10:50 | XMS_ITS | CCD ---
Author Name Interface, O8Piouhng lity Address [address] [place] [address] Organization [facility] Address [address] [place] [address] [address] [place] [address] Care Team Providers Care Supervisor Bridges And Buildings Name Role Phone Misbah STEWART, Fuentes Unavailable [...] Active Deep vein thrombosis Active HTN Active halfway current use of anticoagulants Active Iron deficiency anemia (disorder) Active Hypotension Active Essential hypertension (disorder) Active Lymphedema (disorder) Active Social History Date Name Value 07/28/2019 Sex Female
--- OUTSIDE RECORDS SUMMARY | 2025-01-12 10:51 | XMS_ITS | Clinical Summary ---
Author Organization [employer] ([place], [place], [place], [place]) Address [address] [place] [address] Care Team Providers Care Commercial Administrator Name Role Phone Santosh Briones MD Primary Care Provider [phone] Julius Cho MD Unavailable Lew Ross MD Unavailable Karlos Pringle PA-C Unavailable [phone] Allergies Active Allergy Reactions Criticality Noted Date [...] 10 doses. 8 mL 12/31/19 25 025 atorvastatin (LIPITOR) 80 MG tablet Take 1 tablet (80mg total) by mouth every evening.. 90 tablet 3 01/11/20 25 025 Active Problems Problem Noted Date [...] 01/10/2025 Telephone [facility] Cardiology [address] [place], [place] [phone] Lesly Sanchez, OUTSIDE SALES EXECUTIVE Medication Management 01/10/2025 Telephone [facility] Cardiology [address] [place] [phone] Lesly Sanchez, OUTSIDE SALES EXECUTIVE Advice Only 01/03/2025 Telephone [facility] Cardiology [address] [place] [phone] Lesly Sanchez, OUTSIDE SALES EXECUTIVE Medication Management 12/30/2024 9:30 AM EDT Office Visit [facility] Cardiology [address] [place] [phone] Lesly Sanchez, OUTSIDE SALES EXECUTIVE Coronary artery disease 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 (Primary Dx); Morbid obesity (HCC); ADONIS (obstructive sleep apnea) by history; Stasis, venous; Primary hypertension; Mixed hyperlipidemia; Lymphedema; Pre-operative cardiovascular examination 12/30/2024 Documentation [facility] Cardiology [address] [place] [phone] Dee Estevez 12/30/2024 Travel from Last 3 Months Immunizations Immunization Administration Dates Next Due Tdap 07/17/2022 Family History Medical History Relation Name Comments Clotting disorder Brother Josue Jimenez Diabetes Brother Josue Jimenez Heart disease Brother Josue Jimenez Hypertension Brother Josue Jimenez Diabetes Father Ho Jimenez Heart attack [...] a language other than [facility]? No 08/17/2023 Do you [...] Sex Assigned at Female 03/19/2022 10:49 AM COMMUNICATIONS PROJECT LEAD Legal Sex Female 5:46 PM CDT Gender Identity Female 03/19/2022 10:49 AM COMMUNICATIONS PROJECT LEAD Sexual Orientation Not on file Last Filed [...] Office Visit [facility] Cardiology [address] [place] [phone] [place] [address] [place] [address] [address] [place] [address] Health Maintenance Due Date Last Done Comments [...] Completed 01/28/2024 Medical Devices Implanted Type Area Radiation Oncology Therapist Device Identifier Shelf Expiration Date Model / Serial / Lot Base Tib 18mm [id number] - [id number] Implanted:Qty : 1 on 04/23/2022 by Massimo Balke DPM at [facility] IMPLANTS Left: Ankle ARIAS MED GRP:ARIAS MED TECH 03/13/[id number] / / [id number] Stem Mid Tib 16mm [id number] - [id number] Implanted:Qty : 2 on 04/23/2022 by Massimo Blake DPM at [facility] IMPLANTS Left: Ankle ARIAS MED GRP:ARIAS MED TECH 03/10/2030 / / [id number] Stem Top Tib 16mm [id number] - [id number] Implanted:Qty : 1 on 04/23/2022 by Massimo Blake DPM at [facility] IMPLANTS Left: Ankle ARIAS MED GRP:ARIAS MED TECH 05/20/[id number] / / [id number] Cement Bone Smplx [facility] 6197-9-001 - [id number] Implanted:Qty : 3 on 04/23/2022 by Massimo Blake, DPM at [facility] IMPLANTS Left: Ankle GIUSEPPE:GIUSEPPE ORTHOPAEDICS 08/02/2023 6197-9-001 / / [id number] Tray Tib Sz4 L [id number] - [id number] Implanted:Qty : 1 on 04/23/2022 by Massimo lBake, DPM at [facility] IMPLANTS Left: Ankle ARIAS MED GRP:ARIAS MED TECH 02/20/[id number] / / [id number] Dome Inbone Talar Sulcus Sz 3 - [id number] Implanted:Qty : 1 on 04/23/2022 by Massimo Blake, DPM at [facility] IMPLANTS Left: Ankle ARIAS MED GRP:ARIAS MED TECH 10/31/2028 / / [id number] Insrt Crosslnk Poly Sz3 [id number] - [id number] Implanted:Qty : 1 on 04/23/2022 by Massimo Blake, DPM at [facility] IMPLANTS Left: Ankle ARIAS MED GRP:ARIAS MED TECH 02/17/[id number] / / [id number] Stem Talar 10mm [id number] - [id number] Implanted:Qty : 1 on 04/23/2022 by Massimo Blake, DPM at [facility] IMPLANTS Left: Ankle ARIAS MED GRP:ARIAS MED TECH 02/16/[id number] / / [id number] Bone Putty Stimulan 5cc 620-005 - [id number] Implanted:Qty : 1 on 08/18/2023 by Massimo Blake, DPM at [facility] IMPLANTS Left: Ankle BIOCOMPOSITES 03/03/2026 620-005 / / [id number] Insurance [facility] MEDICARE ADVANTAGE Advance Directives For more information, please contact: [phone] * Full Code (Latest Code Status on [...] 5:35 PM 08/18/2023 5:58 PM Care Teams Commercial Administrator Relationship Specialty Start Date End Date Santosh Briones MD [address] [facility] [place] [address] PCP - General General Internal Medicine 04/23/22 Julius Cho MD [address] [place] [address] Referring Physician Internal Medicine 04/23/22 Lew Ross MD [address] [facility] [address] [place] [address] Cardiology 08/13/23 Karlos Pringle PA-C [address] [facility] [place] [address] Cardiology 11/23/23
--- OUTSIDE RECORDS SUMMARY | 2025-01-12 10:51 | XMS_ITS | Encounter Summary ---
Author Organization [employer] ([place], [place], [place], [place]) Address [address] [place] [address] Care Team Providers Care Conveyor Loader Name Role Phone Santosh Briones MD Primary Care Provider [phone] Julius Cho MD Unavailable Lew Ross MD Unavailable Karlos Pringle PA-C Unavailable [phone] Reason for Visit * Reason Onset Date Comments Medication Management 01/03/2025 Encounter Details Date Type Department Care Team (Late st Contact Info) Description 01/03/2025 Telephone [facility] Cardiology [address] [place] [address] Lesly Sanchez, LIBRARY CONSULTANT [address] [place] [address] Medication Management Social History Tobacco [...] Do you speak a language other than Spanish at [facility]? No [...] Sex Assigned at Female 03/19/2022 10:49 AM SOA INTEGRATION DEVELOPER Legal Sex Female 5:46 PM CDT Gender Identity Female 03/19/2022 10:49 AM SOA INTEGRATION DEVELOPER Sexual Orientation Not on file documented as of this encounter Miscellaneous Notes * Telephone Encounter - Arturo Prather - 01/10/2025 2:37 PM EDT Patient states the wegovy is too expensive and would like to try alternate medication * Telephone Encounter - Arturo Prather - 01/09/2025 4:46 PM EDT Attempted to contact Valeria and was unable to reach her will attempt again * Telephone Encounter - Leny Washington - 01/03/2025 12:25 PM EDT Cover my meds Meds calling about the PA on Wegovy Valeria Leahy calling to help push appeal throughon denial Please contact Valeria at [phone] documented in this encounter Plan of Treatment Upcoming Encounters Date Type Department Care Team (Late st Contact Info) Description 04/06/2025 9:00 AM EST Office Visit [facility] Cardiology [address] [place] [address] Lew Ross MD [address] [place] [address] [place] [address] documented as of this encounter Visit Diagnoses Not on filedocumented in this encounter Care Teams Conveyor Loader Relationship Specialty Start Date End Date Santosh Briones MD [address] [facility] [place] [address] PCP - General General Internal Medicine 04/23/22 Julius Cho MD [address] [place] [address] Referring Physician Internal Medicine 04/23/22 Lew Ross MD [address] [place] [address] [place] [address] Cardiology 08/13/23 Karlos Pringle PA-C [address] , [facility] [address] [place] [address] Cardiology 11/23/23 documented as of this encounter
--- OUTSIDE RECORDS SUMMARY | 2025-01-12 10:51 | XMS_ITS | Referral Summary ---
Author Organization [employer] ([place], [place], [place], [place]) Address [address] [place] [address] Care Team Providers Care Movable Bulkhead Installer Name Role Phone Santosh Briones MD Primary Care Provider [phone] Julius Cho MD Unavailable Lew Ross MD Unavailable Karlos Pringle PA-C Unavailable [phone] Encounters Date Type Department Care Team Description 01/10/2025 Telephone [facility] Cardiology [address] [place] [address] Lesly Sanchez, CHRISTMAS TREE CONTRACTOR Medication Management 01/10/2025 Telephone [facility] Cardiology [address] [place] [address] Lesly Sanchez, CHRISTMAS TREE CONTRACTOR Advice Only 01/03/2025 Telephone [facility] Cardiology [address] [place] [address] Lesly Sanchez, CHRISTMAS TREE CONTRACTOR Medication Management 12/30/2024 Documentation [facility] Cardiology [address] [place] [address] Dee Estevez 12/30/2024 Travel 12/30/2024 9:30 AM EDT Office Visit [facility] Cardiology [address] [place] [address] LauraLesly, CHRISTMAS TREE CONTRACTOR Coronary artery disease involving ass[place] and [place] coronary artery of ass[place] and [place] heart without angina pectoris (Primary Dx); Morbid obesity (HCC); ADONIS (obstructive sleep apnea) by history; Stasis, venous; Primary hypertension; Mixed hyperlipidemia; Lymphedema; Pre-operative cardiovascular examination from Last 3 Months Allergies Active Allergy [...] Do you speak a language other than Vietnamese at [facility]? No 08/17/2023 Do you want [...] Sex Assigned at Female 03/19/2022 10:49 AM REGIONAL EDUCATION COORDINATOR Legal Sex Female 5:46 PM CDT Gender Identity Female 03/19/2022 10:49 AM REGIONAL EDUCATION COORDINATOR Sexual Orientation Not on file Last [...] Description 04/06/2025 9:00 AM EST Office Visit [facility] Cardiology [address] [place] [address] Lew Ross MD [address] [place] [address] [address] [place] [address] Medical Devices Implanted Type Area Early Childhood Lead Teacher Device Identifier Shelf Expiration Date Model / Serial / Lot Base Tib 18mm [id number] - [id number] Implanted:Qty : 1 on 04/23/2022 by Massimo Blake DPM at [facility] IMPLANTS Left: Ankle ARIAS MED GRP:ARIAS MED TECH 03/13/[id number] / / [id number] Stem Mid Tib 16mm [id number] - [id number] Implanted:Qty : 2 on 04/23/2022 by Massimo Blake DPM at [facility] IMPLANTS Left: Ankle ARIAS MED GRP:ARIAS MED TECH 03/10/[id number] / / [id number] Stem Top Tib 16mm [id number] - [id number] Implanted:Qty : 1 on 04/23/2022 by Massimo Blake, DPM at [facility] IMPLANTS Left: Ankle ARIAS MED GRP:ARIAS MED TECH 05/20/[id number] / / [id number] Cement Bone Smplx Tobra 40gm 6197-9-001 - [id number] Implanted:Qty : 3 on 04/23/2022 by Massimo Blake, DPM at [facility] IMPLANTS Left: Ankle GIUSEPPE:GIUSEPPE ORTHOPAEDICS 08/02/2023 6197-9-001 / / [id number] Tray Tib Sz4 L [id number] - [id number] Implanted:Qty : 1 on 04/23/2022 by Massimo Blake, DPM at [facility] IMPLANTS Left: Ankle ARIAS MED GRP:ARIAS MED TECH 02/20/[id number] / / [id number] Dome Inbone Talar Sulcus Sz 3 - [id number] Implanted:Qty : 1 on 04/23/2022 by Massimo Blake, SHAHRAMM at [facility] IMPLANTS Left: Ankle ARIAS MED GRP:ARIAS MED TECH 10/31/2028-3 / / [id number] Insrt Crosslnk Poly Sz3 [id number] - [id number] Implanted:Qty : 1 on 04/23/2022 by Massimo Blake, DPM at [facility] IMPLANTS Left: Ankle ARIAS MED GRP:ARIAS MED TECH 02/17/2030 [id number] / / [id number] Stem Talar 10mm [id number] - [id number] Implanted:Qty : 1 on 04/23/2022 by Massimo Blake, DPM at [facility] IMPLANTS Left: Ankle ARIAS MED GRP:ARIAS MED TECH 02/16/[id number] / / [id number] Bone Putty Stimulan 5cc 620-005 - [id number] Implanted:Qty : 1 on 08/18/2023 by Massimo Blake, DPM at [facility] IMPLANTS Left: Ankle BIOCOMPOSITES 03/03/2026 [id number] / / [id number] Insurance [facility] [place] [address] Advance Directives For more information, please contact: [phone] * Full Code (Latest Code Status on [...] 5:35 PM 08/18/2023 5:58 PM Care Teams Movable Bulkhead Installer Relationship Specialty Start Date End Date Santosh Briones MD [address] [place] [address] [place] [address] PCP - General General Internal Medicine 04/23/22 Julius Cho MD [address] [place] [address] Referring Physician Internal Medicine 04/23/22 Lew Ross MD [address] [place] [address] [address] Cardiology 08/13/23 Karlos Pringle PA-C [address] , [facility] [address] [place] [address] Cardiology 11/23/23
--- OUTSIDE RECORDS SUMMARY | 2025-01-12 10:51 | XMS_ITS | Clinical Summary ---
Author Organization Healthcare Address [address] [place] [address] Care Team Providers Care Production Drilling Machine Operator Name Role Phone Abby Phillip CRISTOFER Primary Care Provider [phone] Social History Tobacco Use Types Packs/Day Years [...] Info) Description 01/16/2025 9:30 AM EDT Consult [facility] [address] [place] [address] April Bedolla R, APPLIANCE TECHNICIAN [address] [place] [address] Health Maintenance Due Date Last Done Comments [facility]-Bone Density Scan 1963 [facility]-Depression Screening 1963 [facility]-HIV Screening 1963 [facility]-Hepatitis C Screening 1963 [facility]-Medicare Annual Wellness (AWV) 1963 [facility]-/Child/Adol SDOH Screenings 1963 [facility]- SDOH Screenings 1981 [facility]-Adult SDOH Screenings 1981 [facility]-Pap Smear 1984 [facility]-Cervical Cancer Screening 1993 [facility]-HPV/Cotest 1993 CT Colonography 2008 Colonoscopy 2008 FIT-DNA 2008 FIT 2008 FOBT 2008 Sigmoidoscopy 2008 [facility]-Colorectal Cancer Screening 2008 [facility]-Breast Cancer Screening 2013 [facility]-Zoster Vaccines (2 of 2) 03/20/2023 01/23/2023 [id number] Vaccine ( season) 2025 10/29/2021, 02/01/2021, 05/23/2020, [...] patient's age to complete this topic Insurance [facility] MEDICARE Care Teams Production Drilling Machine Operator Relationship Specialty Start Date End Date Abby Phillip APRN [address] [place] [address] PCP - General 01/03/25
--- OUTSIDE RECORDS SUMMARY | 2025-01-12 10:51 | XMS_ITS | Encounter Summary ---
Author Organization [employer] ([place], [place], [place], [place]) Address [address] [place] [address] Care Team Providers Care Computer Systems Design Analyst Name Role Phone Santosh Briones MD Primary Care Provider [phone] Julius Cho MD Unavailable Lew Ross MD Unavailable Karlos Pringle PA-C Unavailable Reason for Visit * Reason Onset Date Comments Medication Management 12/30/2024 PA for Weg ovy 0.5MG/0.5ML auto-injectors Encounter Details Date Type Department Care Team (Late st Contact Info) Description 12/30/2024 Documentation [facility] Cardiology [address] [place] [address] Dee Estevez Social History Tobacco [...] a language other than [place] at [facility]? No 08/17/2023 Do you want [...] at Female 03/19/2022 10:49 AM DIRECTOR OF DEVELOPMENT AND MARKETING Legal Sex Female 5:46 PM CDT Gender Identity Female 03/19/2022 10:49 AM DIRECTOR OF DEVELOPMENT AND MARKETING Sexual Orientation Not on file documented as of this encounter Progress Notes * Dee Estevez - 12/30/2024 4:21 PM EDT PA for Wegovy 0.5MG/0.5ML auto-injectors Status: Waiting for Appeal Sales:[id number] documented in this encounter Plan of Treatment Upcoming Encounters Date Type Department Care Team (Late st Contact Info) Description 04/06/2025 9:00 AM EST Office Visit [facility] Cardiology [address] [place] [phone] [place] [address] [place] [address] [id number] documented as of this encounter Visit Diagnoses Not on filedocumented in this encounter Care Teams Computer Systems Design Analyst Relationship Specialty Start Date End Date Santosh Briones MD [address] [place] [address] PCP - General General Internal Medicine 04/23/22 Julius Cho MD [address] [place] [address] Referring Physician Internal Medicine 04/23/22 Lew Ross MD [address] [place] [address] [id number] Cardiology 08/13/23 Karlos Pringle PA-C [address] [place] [address] [address] [place] [address] Cardiology 11/23/23 documented as of this encounter
--- OUTSIDE RECORDS SUMMARY | 2025-01-12 10:51 | XMS_ITS | Encounter Summary ---
Author Organization [employer] ([place], [place], [place], [place]) Address [address] [place] [address] Care Team Providers Care Stunt Person Name Role Phone Santosh Briones MD Primary Care Provider [phone] Julius Cho MD Unavailable Lew Ross MD Unavailable Karlos Pringle PA-C Unavailable [phone] Encounter Details Date Type Department Care Team [...] Do you speak a language other than Australian at [facility]? No 08/17/2023 [...] Sex Assigned at Female 03/19/2022 10:49 AM PARK MANAGER Legal Sex Female 5:46 PM CDT Gender Identity Female 03/19/2022 10:49 AM PARK MANAGER Sexual Orientation Not on file documented as of this encounter Plan of Treatment Upcoming Encounters Date Type Department Care Team (Late st Contact Info) Description 04/06/2025 9:00 AM EST Office Visit [facility] Cardiology [address] [place] [address] Lew Ross MD [address] [facility] [address] [place] [address] documented as of this encounter Visit Diagnoses Not on filedocumented in this encounter Care Teams Stunt Person Relationship Specialty Start Date End Date Santosh Briones MD [address] [place] [address] PCP - General General Internal Medicine 04/23/22 Julius Cho MD [address] [place] [address] Referring Physician Internal Medicine 04/23/22 Lew Ross MD [address] [facility] [address] [place] [address] Cardiology 08/13/23 Karlos Pringle PA-C [address] [facility] [place] [address] Cardiology 11/23/23 documented as of this encounter
[2025-01-12 11:00] VITALS: BP 160/83; PULSE 79; RESP 18; TEMP 36.9; O2SAT 100
[2025-01-12] MEDS: ferumoxytoL 510 MG in 0.9 % SODIUM CHLORIDE 50 ML 268 MG IV (11:00)
[2025-01-12 11:16] VITALS: BP 178/89; PULSE 82
== END 2025-01-12 11:21 | disposition home or self-care (01) ==
LOC: INF 10:37
PROVIDERS: PCP Nurse Practitioner Family; Visit Provider Internal Medicine Medical Oncology
DX: D64.9 Anemia, unspecified (principal)
CPT/HCPCS: 96374; Q0138

== ENCOUNTER 2025-01-13 07:11 | Day surgery (SDC) | payer MEDICARE, SELFPAY ==
[2025-01-10 13:29] VITALS: BMI 45.2
[2025-01-13] VITALS (9 sets, daily range): BP systolic 131–175; BP diastolic 77–102; PULSE 54–76; RESP 17–18; TEMP 36.4–36.7; O2SAT 94–99
[2025-01-13] MEDS: LACTATED RINGERS 1000ML 1,000 ML 25 ML IV (07:29)
--- NOTE | 2025-01-13 07:49 | P.PNANES_ITS ---
[facility] Disclaimer: The information contained in this section may have been updated after the patient was seen, as this information can be updated by other users. Medical History CAD (coronary artery disease) Hx of deep venous thrombosis Encounter for pre-operative examination Lumbar radiculopathy Heart attack Hyperlipidemia Nerve damage of left foot Osteoporosis Encounter for routine gynecological examination Post-menopausal bleeding Osteoarthritis Obesity Surgical History H/O breast augmentation S/P cholecystectomy H/O hernia repair H/O total ankle replacement H/O gastric bypass Family History Father Diabetes Coronary artery disease Brother Diabetes Family/Other Blood clot in vein Blood disease Social History Smoking Status: Never smoker second hand exposure: No (previously) alcohol intake: never substance use type: denies use current occupational status: disabled Travel in the last 8 weeks?: Inside the [place] Have you lived/traveled outside US in past 30 days?: No Contact w/someone who lives/traveled outside US past 30 days?: No Exposure to someone with infectious disease in past 14 days?: No Do you have a fever (greater than 100.4 F or 38 C)?: No Have you tested positive for COVID-19?: No Exposed to someone with COVID-19 in past 14 days?: No Do you have a sore throat?: No Do you have a cough?: No Do you have any weakness?: No Do you have any diarrhea?: No Are you experiencing any unusual bleeding?: No Do you have any muscle aches/pain?: No Do you have any abdominal pain?: No Are you experiencing loss of taste or smell?: No [facility] Anesthesia Checklist Patient Identification Patient Identification: Arm Band and Verbal (Name & ) Structural Data Admitted From: Home Planned Operative Procedure/s: D&C Consent for Planned Operative Procedure(s) Verified: Yes Verified Documents: Surgical Consent and History and Physical NPO Status Verified Time NPO: 00:00 Additional verifications Anesthesia Reactions: No Hx Blood Transfusions: No Blood Transfusion Reaction: No Airway Assessment Mallampati Score:: Class II Dentition: Partials Neurological Assessment Level of Consciousness: Awake, Alert and Appropriate Hx Seizures: No Numbness or tingling in extremities: No Anesthesia Plan Anesthesia Risk discussed: Yes Anesthesia Plan: Verified ASA Class: III Anesthesia Type: General
--- NOTE | 2025-01-13 11:06 | P.PNANES_ITS ---
[facility] Anesthesia Record Part I Anesthesia Record I Intake, IV Amount: 600 Hydration: Adequate Estimated blood loss (mL): 10 Urine output (mL): 100 Blood Products used (#): none Blood Pressure: 154/102 SaO2: 94 Pulse Rate: 76 Airway Patency: Patent Respiratory Rate: 18 Temperature: 98.1 F Patient is:: Drowsy and Stable Stable to PACU at:: 11:04
--- NOTE | 2025-01-13 11:57 | P.OP_ITS ---
Date of procedure: 01/13/25 Pre-op Diagnosis:: 1. Postmenopausal bleeding 2. Thickened endometrial stripe Post-op Diagnosis:: 1. Postmenopausal bleeding 2. Thickened endometrial stripe Procedure performed:: Hysteroscopy, dilation, and MyoSure polypectomy Surgeon:: Madelyn Young DO EMPLOYEE RELATIONS REPRESENTATIVE:: Parvez Kahn Anesthesia: GETA Estimated blood loss (mL): 5 Operative findings:: Findings: -EUA revealed an 6-week anteverted uterus with regular contour. Narrowed vaginal introidus. Atrophic vaginal mucosa. No significant prolapse or support defects noted. -Hysteroscopy revealed endometrial and endocervical polyps. Calcified endometrial lining which was difficult to obtain a significant amount of endometrial curettings. Operative note:: The patient was taken back to the OR where general anesthesia was obtained.? She was placed in the dorsal lithotomy position using yellow fin stirrups and sterilely prepped and draped in the usual fashion.? An in and out catheter was used to drain her bladder.? A timeout was performed.? A weighted speculum was used to visualize this cervix, a single-tooth tenaculum was applied to the anterior lip of the cervix. The cervix was only slightly dilated to allow entry to the ectocervix and hydrodisection was used to get the scope the rest of the way into the cavity. The hysterscope was inserted and a large polyp was noted at the level of the internal cervical os and lower uterine segment. The MyoSure was used to remove the polyp. There was 1 additional small polyp in the endometrial cavity which was removed. The endometrial lining was atrophic and calcified, sample was obtained. Upon exiting the cervical canal there was a small endocervical polyp that was removed with the MyoSure. Images of the tubal ostia were obtained. At the conclusion of the procedure there was a fluid deficit of 75mLs. Total myosure cutting time was less than 2 minutes. Following complete removal of the polyps the MyoSure hysteroscope was removed.? Specimen was collected and sent to pathology. The single-tooth tenaculum was removed and hemostasis was noted at the tenaculum sites.? All instruments were removed from the vagina.? All counts were correct, per nursing.? This concluded the procedure, the patient was awakened from anesthesia, and transferred to the PACU in stable condition. Condition: stable Disposition: PACU Specimens:: Endometrial polyp, endocervical polyp, endometrial curettings Complications:: None
--- NOTE | 2025-01-13 16:01 | EXP.ANES.II ---
[facility] Anesthesia Record Part II Anesthesia Record Part II Discharge Time: 12:05 Destination: Surgical Day Care (OP Surgery) PACU nurse assessment reviewed?: Yes Patient Condition:: Good Anesthesia Complications:: None Swallowing reflex intact?: Yes Airway Patency: Patent Cyanosis?: No Blood Pressure: 150/82 SaO2: 96 Respiratory Rate: 18 Pulse Rate: 61 Temperature: 97.6 F Mental Status: Alert & Oriented Pain level:: 0 Nausea and/or vomitting:: None Intake, IV Amount: 0 Hydration: Adequate
== END 2025-01-13 12:40 | disposition home or self-care (01) ==
PROVIDERS: PCP Nurse Practitioner Family; Visit Provider Obstetrics & Gynecology
PROC: 0UDB8ZZ Extraction of Endometrium, Via Natural or Artificial Opening Endoscopic (ICD-10-PCS; CPT 58558; principal; 2025-01-13 09:00)
DX: N84.0 Polyp of corpus uteri (principal); N95.0 Postmenopausal bleeding; I25.10 Atherosclerotic heart disease of native coronary artery without angina pectoris; M54.16 Radiculopathy, lumbar region; I25.2 Old myocardial infarction; E78.5 Hyperlipidemia, unspecified; M81.0 Age-related osteoporosis without current pathological fracture; M19.91 Primary osteoarthritis, unspecified site; E66.9 Obesity, unspecified; Z88.5 Allergy status to narcotic agent; Z88.2 Allergy status to sulfonamides; Z88.8 Allergy status to other drugs, medicaments and biological substances; Z68.42 Body mass index [BMI] 45.0-49.9, adult; Z86.718 Personal history of other venous thrombosis and embolism; Z90.49 Acquired absence of other specified parts of digestive tract; Z98.84 Bariatric surgery status; Z96.669 Presence of unspecified artificial ankle joint; Z79.01 Long term (current) use of anticoagulants; Z79.82 Long term (current) use of aspirin; Z79.899 Other long term (current) drug therapy; N93.9 Abnormal uterine and vaginal bleeding, unspecified
CPT/HCPCS: 58558; J1100; J2003; J2250; J2405; J2704; J2795; J3010; J7120

== ENCOUNTER 2025-01-18 11:55 | Outpatient (CLI) | payer MEDICARE, SELFPAY ==
--- OUTSIDE RECORDS SUMMARY | 2024-12-30 09:30 | XMS_ITS | Encounter Summary ---
Author Organization [email or web address] ([place], [place], [place], [place]) Address [address] [place] [address] Care Team Providers Care Enterer Name Role Phone Santosh Briones MD Primary Care Provider [phone] Julius Cho MD Unavailable Lew Ross MD Unavailable Karlos Pringle PA-C Unavailable [phone] Reason for Visit * Reason Comments Follow-up Encounter Details Date Type Department Care Team (Late st Contact Info) Description 12/30/2024 9:30 AM EDT Office Visit [facility] Cardiology [address] [place] [address] Lesly Sanchez, CRISTOFER [address] [place] [address] Coronary artery disease involving pala coronary artery of pala heart without angina pectoris (Primary Dx); Morbid [...] Do you speak a language other than Jordanian at [facility]? No 08/17/2023 Do you want [...] Sex Assigned at Female 03/19/2022 10:49 AM HOME HEALTH OUTREACH COORDINATOR Legal Sex Female 5:46 PM CDT Gender Identity Female 03/19/2022 10:49 AM HOME HEALTH OUTREACH COORDINATOR Sexual Orientation Not on file documented [...] encounter Progress Notes * Lesly Haywood Laura, ROTARY ENGRAVER - 12/30/2024 9:30 AM EDT Basic Information: [...] a blood clotting disorder diagnosed by a ski lift mechanic, which she inherited from her mother. 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 5 HRS (A). PASS. GEN WITH POPLITEAL NERVE BLOCK. breast augmentation CARDIAC CATHETERIZATION 2015 CHOLECYSTECTOMY GASTRIC BYPASS gastric bypass revision elian filter in vena cava heel spur right HERNIA REPAIR x2 I&D,ABSCESS FOOT Left 08/18/2023 Procedure: IRRIGATION AND DEBRIDEMENT, LEFT ANKLE; Surgeon: Massimo Blake DPM; Location: [facility] OR; Service: Podiatry; Laterality: Left; ANTIBIOTIC [...] -peripheral angiography 08/25: 80% stenosis of L CLIENT SERVICES REPRESENTATIVE, CBI deferred due to difficulty advancing sheath to LLE due to iliac artery toruosity, will attempt antegrade femoral approach if refractory osteomyelitis or gangrene -LEAD/ELIN 4/24: mild PAD in RLE with ELIN [...] > 500 lbs *Stable CAD. Hx of OR/branch vessel single vessel CAD by cath 2014. [...] Description 04/06/2025 9:00 AM EST Office Visit [facility] Cardiology [address] [place] [phone] [place] [address] [place] [address] [address] documented as of this encounter Visit Diagnoses Diagnosis Coronary artery disease involving pala coronary artery of pala heart without angina pectoris- Primary Morbid obesity (HCC) Morbid obesity ADONIS (obstructive sleep apnea) by history Obstructive sleep apnea (adult) (pediatric) Stasis, venous Unspecified venous (peripheral) insufficiency Primary hypertension Unspecified essential hypertension Mixed hyperlipidemia Lymphedema Other noninfectious lymphedema Pre-operative cardiovascular examination documented in this encounter Care Teams Enterer Relationship Specialty Start Date End Date Santosh Briones MD [address] [facility] [place] [address] PCP - General General Internal Medicine 04/23/22 Julius Cho MD [address] [place] [address] Referring Physician Internal Medicine 04/23/22 Lew Ross MD [address] [place] [address] [address] Cardiology 08/13/23 Karlos Pringle PA-C [address] [facility] [place] [address] Cardiology 11/23/23 documented as of this encounter
--- OUTSIDE RECORDS SUMMARY | 2025-01-16 09:30 | XMS_ITS | Encounter Summary ---
Author Organization Healthcare Address [address] [place] [address] Care Team Providers Care [employer] Engineer Sergeant Name Role Phone Abby Phillip APRN Primary Care Provider [phone]- [phone] Reason for Visit * Reason Comments Consult +GARRY * Consultation (Routine) - Closed Specialty Diagnoses / Procedures Referred By Mike martin Referred To Contact Rheumatology Diagnoses Positive GARRY (antinuclear antibody) Abby Phillip, BUSINESS INSIGHT AND ANALYTICS MANAGER [address] [place] [address] Phone: tel: fax: Referral ID Status Reason Start Date Expiration Date V isits Requested Visits Authorized [id number] Closed Specialty Services Required 12/28/2024 06/29/2026 1 1 Encounter Details Date Type Department Care Team (Late st Contact Info) Description 01/16/2025 9:30 AM EDT Consult [facility] [address] [place] [address] Graeme, May R, BUSINESS INSIGHT AND ANALYTICS MANAGER [address] [place] [address] History of DVT (deep vein [...] makes pain worse. Active with Hematology in [place]. Had uterine biopsy on Thursday. Initial Rheumatological [...] Resource Strain: Low Risk (08/17/2023) Received [place] [facility] ([place], [place], [place], [place]) Financial Resource Strain How hard is it for you to pay for the very basics like food, housing, medical care, and heating? Would you say it is:: Not hard at all Food Insecurity: No Food Insecurity (08/17/2023) Received from [facility] ([place]) Food Insecurity Within the past 12 months, you worried that your food would run out before you got money to buy more.: Never true Within the past 12 months, the food you bought just didn't last and you didn't have money to get more.: Never true Transportation Needs: No Transportation Needs (08/17/2023) Received from [facility] ([place], [place], [place], [place]) Transportation Needs In the past 12 months, has lack of reliable transportation kept you from medical appointments, meetings, work or from getting things needed for daily living?: No Physical Activity: Inactive (08/17/2023) Received from [facility] ([place], [place], [place], [place]) Physical Activity Number of minutes of exercise per week : 0 Stress: Not on file Social Connections: Unknown (08/17/2023) Received from [facility] ([place], [place], [place], [place]) Family and Community Support If for any reason you need help with day-to-day activities such as bathing, preparing meals, shopping, managing finances, etc., do you get the help you need?: I don't need any help Feeling Lonely or Isolated: 0 Intimate Partner Violence: Unknown (02/09/2023) Received from [facility] Abuse Screen Unsafe at Home or Work/School: Not on file Feels Threatened by Someone?: Not on file Does Anyone Keep You from Contacting Others or Doint Things Outside the Home?: Not on file Physical Sign of Abuse Present: Not on file Housing Stability: Unknown (02/09/2023) Received from [facility] Housing Stability Current Living Arrangements: Not on [...] Typing I reviewed MRI of Hip from [facility]. Tendonitis noted. No sacroiliitis. 4. Bilateral hip pain XR Sacroiliac Joints 3+ Views Records requested from [facility] MRI of Thoracic and Lumbar spine uploaded [...] Parts of this note were dictated using [employer] voice recognition software. As a result, errors may occur. When identified, these regional company flatbed truck driver errors are corrected, but while every attempt is made to prevent/correct these, errors may still exist. [1] Past Medical History: Diagnosis Date Abdominal pannus 07/19/2018 Acute candidiasis of vulva and vagina 09/21/2023 Anemia 01/16/2025 Ankle pain, left 07/18/2022 Benign essential hypertension 08/26/2023 CAD (coronary artery disease) 08/17/2023 Chronic osteomyelitis involving ankle and foot ([facility]) 08/21/2023 Chronic ulcer of ankle ([facility]) 07/18/2022 Deep vein thrombosis (DVT) ([facility]) 09/06/2018 Excess skin of abdomen 07/19/2018 Hernia of abdominal wall 07/09/2012 History of arthroplasty of left ankle 04/23/2022 Iron deficiency anemia 01/16/2025 Low back pain over 5 years ago Lymphedema 01/16/2025 Morbid obesity due to excess calories ([facility]) 08/26/2023 Old myocardial infarction History of heart attack ADONIS (obstructive sleep apnea) 04/23/2022 Osteoarthritis diagnosed 2021 Osteomyelitis of left foot ([facility]) 08/17/2023 Osteoporosis 2021 Pain management 04/23/2022 Personal history of other diseases of the circulatory system History of irregular heartbeat Personal history of other venous thrombosis and embolism History of blood clots Plantar fasciitis 2021 Sciatica 2022 Scleroderma ([facility]) 2021 Scleroderma ([facility]) 08/17/2023 Stasis, venous 07/18/2022 [2] Past Surgical [...] documented in this encounter Plan of Treatment Pending Results Name Type Priority Associated Diagnoses Date /Time Cardiolipin antibody, IgA Lab Routine History of DVT (deep vein thrombosis) GARRY positive 01/16/2025 10:15 AM EDT Double-Stranded DNA (dsDNA) Antibody, IgG by IFA Lab Routine GARRY positive 01/16/2025 10:15 AM EDT ENAI Lab Routine GARRY positive 01/16/2025 10:15 AM EDT ENAII Lab Routine GARRY positive 01/16/2025 10:15 AM EDT [facility] (DANICA) Antibody, IgG Lab Routine GARRY positive 01/16/2025 10:15 AM EDT Scheduled Orders Name Type Priority Associated Diagnoses Orde r Schedule Cardiolipin antibody, IgA Lab Routine History of DVT (deep vein thrombosis) GARRY positive Expected: 01/16/2025 (Approximate), Expires: 07/16/2026 Double-Stranded DNA (dsDNA) Antibody, IgG by IFA Lab Routine GARRY positive Expected: 01/16/2025 (Approximate), Expires: 07/16/2026 ENAI Lab Routine GARRY positive Expected: 01/16/2025 (Approximate), Expires: 07/16/2026 ENAII Lab Routine AGRRY positive Expected: 01/16/2025 (Approximate), Expires: 07/16/2026 [facility] (DANICA) Antibody, IgG Lab Routine GARRY positive Expected: 01/16/2025 (Approximate), Expires: 07/16/2026 documented as of this encounter Results * [...] on 01/16/2025 10:53 AM may R Graeme BUSINESS INSIGHT AND ANALYTICS MANAGER IMG XR PROCEDURES Final Res ult * (ABNORMAL) Urinalysis with reflex microscopic (Culture NOT Included) (01/16/2025 10:16 AM EDT) Color, Urine Yellow LAB URINALYSIS - AUTOMATED METHOD 01/16/2025 11:59 AM EDT [facility] Clarity, Urine Clear LAB URINALYSIS - AUTOMATED METHOD 01/16/2025 11:59 AM EDT [facility] Spec [place], Urine 1.013 1.005 - 1.030 LAB URINALYSIS - AUTOMATED METHOD 01/16/2025 11:59 AM EDT [facility] pH, Urine 6.0 5.0 - 8.0 LAB URINALYSIS - AUTOMATED METHOD 01/16/2025 11:59 AM EDT [facility] Protein, Urine Negative Negative mg/dL LAB URINALYSIS - AUTOMATED METHOD 01/16/2025 11:59 AM EDT [facility] Glucose, Urine Negative Negative mg/dL LAB URINALYSIS - AUTOMATED METHOD 01/16/2025 11:59 AM EDT [facility] Ketones, Urine Negative Negative mg/dL LAB URINALYSIS - AUTOMATED METHOD 01/16/2025 11:59 AM EDT [facility] Blood, Urine Large(A) Negative LAB URINALYSIS - AUTOMATED METHOD 01/16/2025 11:59 AM EDT [facility] Bilirubin, Urine Negative Negative LAB URINALYSIS - AUTOMATED METHOD 01/16/2025 11:59 AM EDT [facility] Urobilinogen, Urine 0.2 0.2 to 1.0 mg/dL LAB URINALYSIS - AUTOMATED METHOD 01/16/2025 11:59 AM EDT [facility] Leukocytes, Urine Small(A) Negative LAB URINALYSIS - AUTOMATED METHOD 01/16/2025 11:59 AM EDT [facility] Nitrite, Urine Negative Negative LAB URINALYSIS - AUTOMATED METHOD 01/16/2025 11:59 AM EDT [facility] RBC, Urine 11 - 15(A) 0 to 3 /HPF LAB URINALYSIS - AUTOMATED METHOD 01/16/2025 11:59 AM EDT [facility] WBC, Urine 6 - 10(A) 0 to 5 /HPF LAB URINALYSIS - AUTOMATED METHOD 01/16/2025 11:59 AM EDT [facility] Squamous Epithelial Cells 11 - 20(A) 0 to 5 /HPF LAB URINALYSIS - AUTOMATED METHOD 01/16/2025 11:59 AM EDT [facility] Hyaline Casts 0 - 2 0 to 5 /LPF LAB URINALYSIS - AUTOMATED METHOD 01/16/2025 11:59 AM EDT [facility] Bacteria, Urine Negative Negative LAB URINALYSIS - AUTOMATED METHOD 01/16/2025 11:59 AM EDT [facility] Urine Urine specimen obtained by clean catch procedure / Unknown Non-blood Collection / Unknown 01/16/2025 10:16 AM EDT 01/16/2025 10:16 AM EDT may Graeme [facility] LAB URINE ORDERABLES Final Result Performing Organization Address City/State/[place] Co de Phone Number [facility] [address] [place] [address] * Protein, Random, Urine with Creatinine (01/16/2025 10:16 AM EDT) Protein, Urine 6 mg/dL 01/16/2025 12:12 PM EDT [facility] Creatinine, Urine 34 mg/dL 01/16/2025 12:12 PM EDT [facility] Protein/Creatin ine Ratio 0.2 mg/mg Creat 01/16/2025 12:12 PM EDT [facility] Urine Urine specimen obtained by clean catch procedure / Unknown Non-blood Collection / Unknown 01/16/2025 10:16 AM EDT 01/16/2025 10:16 AM EDT may R Graeme [facility] LAB URINE ORDERABLES Final Result Performing Organization Address [facility]/ZIP Co de Phone Number [facility] [address] [place] [address] * Cyclic Citrul Peptide Antibody IgG (01/16/2025 10:15 AM EDT) Cyclic Citrul Peptide Antibody IgG <5.0 <=5.0 U/mL 01/16/2025 3:17 PM EDT [facility] Blood Venous blood specimen / Unknown Venipuncture / Unknown 01/16/2025 10:15 AM EDT 01/16/2025 10:15 AM EDT may Graeme BUSINESS INSIGHT AND ANALYTICS MANAGER LAB BLOOD ORDERABLES Final Result Performing Organization Address [facility]/[place] Co de Phone Number [address] [address] * Rheumatoid Factor, Plasma (01/16/2025 10:15 AM EDT) Rheumatoid Factor, Plasma <10 <14 IU/mL 01/16/2025 1:24 PM EDT [facility] Blood Venous blood specimen / Unknown Venipuncture / Unknown 01/16/2025 10:15 AM EDT 01/16/2025 10:15 AM EDT may Graeme BUSINESS INSIGHT AND ANALYTICS MANAGER LAB BLOOD ORDERABLES Final Result Performing Organization Address City/[facility]/[place] Co de Phone Number [facility] [address] [place] [address] * HLA B27 Typing (01/16/2025 10:15 AM EDT) Blood Venous blood specimen / Unknown Venipuncture / Unknown 01/16/2025 10:15 AM EDT 01/16/2025 10:15 AM EDT may R Graeme BUSINESS INSIGHT AND ANALYTICS MANAGER LAB BLOOD ORDERABLES Final Result Performing Organization Address City/[facility]/ZIP Co de Phone Number [facility] [address] [place] [address], [place] * Thyroid Stimulating Hormone, Plasma (01/16/2025 10:15 AM EDT) Thyroid Stimulating Hormone, Plasma 0.48 0.40 - 4.20 uIU/mL 01/16/2025 1:24 PM EDT [facility] Blood Venous blood specimen / Unknown Venipuncture / Unknown 01/16/2025 10:15 AM EDT 01/16/2025 10:15 AM EDT may R Graeme [place] LAB BLOOD ORDERABLES Final Result Performing Organization Address [facility]/ZIP Co de Phone Number [facility] [address] [place] [address] * Thyroid Peroxidase Antibody (01/16/2025 10:15 AM EDT) Thyroid Peroxidase Antibody <5 <=8 IU/mL 01/16/2025 1:57 PM EDT [facility] Blood Venous blood specimen / Unknown Venipuncture / Unknown 01/16/2025 10:15 AM EDT 01/16/2025 10:15 AM EDT may R Graeme [place] LAB BLOOD ORDERABLES Final Result Performing Organization Address City/[facility]/ZIP Co de Phone Number [facility] [address] [place] [address] * (ABNORMAL) CBC and Differential (01/16/2025 10:15 AM EDT) WBC Count 6.41 3.70 - 10.30 10*3/uL LAB HEMATOLOGY METHOD 01/16/2025 11:33 AM EDT [facility] RBC Count 3.88(L) 3.90 - 5.20 10*6/uL LAB HEMATOLOGY METHOD 01/16/2025 11:33 AM EDT [facility] HGB 10.0(L) 11.2 - 15.7 g/dL LAB HEMATOLOGY METHOD 01/16/2025 11:33 AM EDT [facility] HCT 33.6(L) 34.0 - 45.0 % LAB HEMATOLOGY METHOD 01/16/2025 11:33 AM EDT [facility] Platelet Count 277 155 - 369 10*3/uL LAB HEMATOLOGY METHOD 01/16/2025 11:33 AM EDT [facility] MCV 87 79 - 98 fL LAB HEMATOLOGY METHOD 01/16/2025 11:33 AM EDT [facility] MCH 25.8(L) 26.0 - 32.0 pg LAB HEMATOLOGY METHOD 01/16/2025 11:33 AM EDT [facility] MCHC 29.8(L) 30.7 - 35.5 g/dL LAB HEMATOLOGY METHOD 01/16/2025 11:33 AM EDT [facility] RDW 15.9(H) 11.5 - 14.5 % LAB HEMATOLOGY METHOD 01/16/2025 11:33 AM EDT [facility] MPV 9.6 8.8 - 12.5 fL LAB HEMATOLOGY METHOD 01/16/2025 11:33 AM EDT [facility] nRBC 0.0 <=0.0 per 100 WBCs LAB HEMATOLOGY METHOD 01/16/2025 11:33 AM EDT [facility] Differential Type Automated LAB HEMATOLOGY METHOD 01/16/2025 11:33 AM EDT [facility] Neutrophils % 61 % LAB HEMATOLOGY METHOD 01/16/2025 11:33 AM EDT [facility] Lymphocytes % 28 % LAB HEMATOLOGY METHOD 01/16/2025 11:33 AM EDT [facility] Monocytes % 8 % LAB HEMATOLOGY METHOD 01/16/2025 11:33 AM EDT [facility] Eosinophils % 1 % LAB HEMATOLOGY METHOD 01/16/2025 11:33 AM EDT [facility] Basophils % 1 % LAB HEMATOLOGY METHOD 01/16/2025 11:33 AM EDT [facility] Immature Granulocytes % 1 % LAB HEMATOLOGY METHOD 01/16/2025 11:33 AM EDT [facility] Neutrophils Absolute 3.95 1.60 - 6.10 10*3/uL LAB HEMATOLOGY METHOD 01/16/2025 11:33 AM EDT [facility] Lymphocytes Absolute 1.77 1.20 - 3.90 10*3/uL LAB HEMATOLOGY METHOD 01/16/2025 11:33 AM EDT [facility] Monocytes Absolute 0.50 0.30 - 0.90 10*3/uL LAB HEMATOLOGY METHOD 01/16/2025 11:33 AM EDT [facility] Eosinophils Absolute 0.09 0.00 - 0.50 10*3/uL LAB HEMATOLOGY METHOD 01/16/2025 11:33 AM EDT [facility] Basophils Absolute 0.04 0.00 - 0.10 10*3/uL LAB HEMATOLOGY METHOD 01/16/2025 11:33 AM EDT [facility] Immature Granulocytes Absolute 0.06 0.00 - 0.06 10*3/uL LAB HEMATOLOGY METHOD 01/16/2025 11:33 AM EDT [facility] Blood Venous blood specimen / Unknown Venipuncture / Unknown 01/16/2025 10:15 AM EDT 01/16/2025 10:15 AM EDT Narrative [facility] - 01/16/2025 11:33 AM EDT Therapeutic decision making should be based on absolute values, rather than percentages. us May R Graeme BUSINESS INSIGHT AND ANALYTICS MANAGER LAB BLOOD ORDERABLES Final Result [facility] [address] [place] [address] * (ABNORMAL) C4 Complement (01/16/2025 10:15 AM EDT) C4 Complement 37(H) 13 - 36 mg/dL 01/16/2025 1:19 PM EDT [facility] Blood Venous blood specimen / Unknown Venipuncture / Unknown 01/16/2025 10:15 AM EDT 01/16/2025 10:15 AM EDT May R Graeme BUSINESS INSIGHT AND ANALYTICS MANAGER LAB BLOOD ORDERABLES Final Result [facility] [address] [place] [address] * C3 Complement (01/16/2025 10:15 AM EDT) C3 Complement 144 84 - 166 mg/dL 01/16/2025 1:19 PM EDT [facility] Blood Venous blood specimen / Unknown Venipuncture / Unknown 01/16/2025 10:15 AM EDT 01/16/2025 10:15 AM EDT may Graeme BUSINESS INSIGHT AND ANALYTICS MANAGER LAB BLOOD ORDERABLES Final Result [facility] [address] [place] [address] * Antinuclear Antibody (GARRY), HEp-2, IgG (01/16/2025 10:15 AM EDT) GARRY INTERPRETIVE COMMENT See Note 01/18/2025 8:40 AM EDT [facility] Anti Nuc Ab Screen <1:80 <1:80 01/18/2025 8:40 AM EDT [facility] ([place] Blood Venous blood specimen / Unknown Venipuncture / Unknown 01/16/2025 10:15 AM EDT 01/16/2025 10:15 AM EDT Narrative [facility] ([place]) - 01/18/2025 8:40 AM EDT Clinical Interpretation: [...] not necessarily rule out SARD. Performed By: [facility] [address] [place] [address] Chair: El Duarte MD, PhD CLIA Number: [id number] us May R Graeme BUSINESS INSIGHT AND ANALYTICS MANAGER LAB BLOOD ORDERABLES Final Result Performing Organization Address City/[facility]/ZIP Co de Phone Number [facility] [address] [place] [address] * RPR With Reflex to Titer (01/16/2025 10:15 AM EDT) Pathologist [facility] Rapid Plasma Reagin Nonreactive Non Reactive 01/17/2025 12:43 AM EDT [facility] Blood Venous blood specimen / Unknown Venipuncture / Unknown 01/16/2025 10:15 AM EDT 01/16/2025 10:15 AM EDT May Graeme BUSINESS INSIGHT AND ANALYTICS MANAGER LAB BLOOD ORDERABLES Final Result [facility] [address] [place] [address] * (ABNORMAL) Lupus Anticoagulant Profile (01/16/2025 10:15 AM EDT) [facility] Lupus Anticoagulant Result Lupus anticoagulant (LA) not detected by either LA-sensitive aPTT or dRVVT assays. If clinical suspicion for antiphospholipid syndrome is high, consider testing for antibodies against cardiolipin and [id number] n I. 01/17/2025 11:38 AM EDT [facility] aPTT Lupus Anticoagulant Sensitive 36.9 <=41.0 sec LAB COAGULATION METHOD 01/17/2025 11:38 AM EDT [facility] DRVVT Screen 52.4 sec LAB COAGULATION METHOD 01/17/2025 11:38 AM EDT [facility] DRVVT Screen Ratio 1.39(H) <1.20 LAB COAGULATION METHOD 01/17/2025 11:38 AM EDT [facility] DRVVT Confirmation 53.3 sec LAB COAGULATION METHOD 01/17/2025 11:38 AM EDT [facility] DRVVT Confirmation Ratio 1.53 LAB COAGULATION METHOD 01/17/2025 11:38 AM EDT [facility] DRVVT Screen Ratio/Confirmat ion Ratio 0.91 <1.20 LAB COAGULATION METHOD 01/17/2025 11:38 AM EDT [facility] Blood Venous blood specimen / Unknown Venipuncture / Unknown 01/16/2025 10:15 AM EDT 01/16/2025 10:15 AM EDT may [facility] LAB BLOOD ORDERABLES Final Result [facility] [address] [place] [address] * Anticardiolipin IgG and IgM (01/16/2025 10:15 AM EDT) IgG Anticardiolipin 2.00 <20.00 GPL Units/mL 01/16/2025 3:19 PM EDT [facility] Anticardiolipin IgG Interpretation Negative Negative 01/16/2025 3:19 PM EDT [facility] IgM Anticardiolipin <1.50 <20.00 MPL Units/mL 01/16/2025 3:19 PM EDT [facility] Anticardiolipin IgM Interpretation Negative Negative 01/16/2025 3:19 PM EDT [facility] Blood Venous blood specimen / Unknown Venipuncture / Unknown 01/16/2025 10:15 AM EDT 01/16/2025 10:15 AM EDT may [facility] LAB BLOOD ORDERABLES Final Result [facility] [address] [place] [address] * Anti-Beta 2 Glycoprotein, IgG and IgM (01/16/2025 10:15 AM EDT) Anti-Beta 2 Glycoprotein 1, IgG 2.2 <20.0 U/mL 01/16/2025 3:19 PM EDT [facility] Anti-Beta 2 Glycoprotein IgG Interpretation Negative Negative 01/16/2025 3:19 PM EDT [facility] Anti-Beta 2 Glycoprotein 1, IgM <1.5 <20.0 U/mL 01/16/2025 3:19 PM EDT [facility] Anti-Beta 2 Glycoprotein IgM Interpretation Negative Negative 01/16/2025 3:19 PM EDT [facility] Blood Venous blood specimen / Unknown Venipuncture / Unknown 01/16/2025 10:15 AM EDT 01/16/2025 10:15 AM EDT May R Graeme [place] LAB BLOOD ORDERABLES Final Result [facility] [address] [place] [address] * Beta-2 Glycoprotein 1 Antibody, IgA (01/16/2025 10:15 AM EDT) [id number] 1, IgA Antibody <10 <=20 KARON 01/18/2025 4:33 AM EDT [facility] Serum 01/16/2025 10:1 5 AM EDT 01/16/2025 10:15 AM EDT Narrative [facility] ([place]) - 01/18/2025 4:33 AM EDT Performed By: [facility] [address] [place] [address] Chair: El Duarte MD, PhD CLIA Number: [id number] May R Graeme [place] LAB BLOOD ORDERABLES Final Result Performing Organization Address City/[facility]/ZIP Co de Phone Number [facility] [address] [phone] documented in this encounter Visit Diagnoses Diagnosis [...] documented as of this encounter Care Teams Special Forces Engineer Sergeant Relationship Specialty Start Date End Date Abby Phillip APRN [address] [place] [address] PCP - General 01/03/25 documented as of this encounter
--- OUTSIDE RECORDS SUMMARY | 2025-01-16 10:18 | XMS_ITS | Encounter Summary ---
Author Organization Healthcare Address [address] [place] [address] Care Team Providers Care Wig Stylist Name Role Phone Abby Phillip CRISTOFER Primary Care Provider [phone]- [phone] Encounter Details Date Type Department Care Team (Latest Contact Info) Description 01/16/2025 10:18 AM EDT - 01/16/2025 11:59 PM EDT Hospital En[facility] [address] [place] [id number] Bilateral hip pain Discharge Disposition: Home or [...] on 01/16/2025 10:53 AM May R Graeme OUTSIDE SALES EXECUTIVE IMG XR PROCEDURES Final Res ult documented [...] documented as of this encounter Care Teams Wig Stylist Relationship Specialty Start Date End Date Abby Phillip APRN [address] [place] [address] PCP - General 01/03/25 documented as of this encounter
--- OUTSIDE RECORDS SUMMARY | 2025-01-18 11:56 | XMS_ITS | Continuity of Care Document ---
Author Organization [facility]. If a dditional information is needed, contact Health Information Management at [phone] Address [address] [place] [address] Phone Care Team Providers Care Mechanical Engineering Specialist Name Role Phone Unavailable Unavailable Unavailable Unavailable [...] Chest wall pain Onset:21-Feb-2019 Mazin Lugo Status:Acute Laceration of lip Onset:25-Jun-2015 Dee Johnson Status:Acute Comments:Onset Date: Abrasion and/or friction bur n of multiple sites Onset:25-Jun-2015 Dee Johnson Status:Acute Comments:Onset Date: Laceration of mouth Onset:25-Jun-2015 Dee Johnson Status:Acute Comments:Onset Date: Abdominal pain Onset:18-Mar-2015 José Miguel Suero Status:Acute Comments:Onset Date: Chest pain Onset:18-Mar-2015 Curtis Lima Status:Acute Comments:Onset Date: Chest pain Onset:18-Mar-2015 Chalo Clark Status:Acute Comments:Onset Date: [id number] Hypertensive disorder Onset:18-Mar-2015 José Miguel Cecilia Suero Comments:Onset Date: Nausea and vomiting Onset:18-Mar-2015 José Miguel Cecilia Suero Status:Complete Comments:Onset Date: [id number] Deep venous thrombosis Onset:13-Feb-2015 Pineda Perkins Comments:Onset Date: [id number] Morbid obesity Onset:12-Feb-2015 Brian Suero Comments:Onset Date: [...] trimethoprim(Allergy) Onset: 11-Feb-2022 Reaction:Vomiting Bactrim(Allergy) Morphine(Allergy) Medications Zetia;10 MG Orally Once a da y, 1 tablet Quantity:30 Sagealison Del Cid W Start:10-Mar-2022 Comments:10 MG Orally Once a day, 1 tablet Atorvastatin Calcium;80 MG O rally Once a day, 1 tablet Quantity:30 Sikadyu Nehemias W Start:10-Mar-2022 Comments:80 MG Orally Once a [...] ORAL Daily Start:24-Jun-2015 Comments:30 mg PO DAILY furosemide 40 MG Oral Tablet ;40 MG ORAL Daily Start:24-Jun-2015 Comments:40 mg PO DAILY acetaminophen 325 MG / HYDRO codone bitartrate 5 MG Oral Tablet;1 TAB ORAL Every 6 Hours as Needed Start:24-Jun-2015 Comments:1 tab PO Q6H PRN As Needed for Pain Zofran;4 MG ORAL Three Times a Day As Needed Start:20-Mar-2015 Status:Aborted Comments:4 MG PO TID PRN As Needed for Nausea Flagyl;500 MG ORAL Three Gume es a Day Start:20-Mar-2015 Status:Aborted Comments:500 MG PO TID Levaquin_LEVA250T11-AOM;750 MG ORAL Every 24 Hours Start:20-Mar-2015 Status:Aborted Comments:750 MG PO Q24 Lactobacillus acidophilus [Acidophilus] Capsule;1 ea ORAL Two Times a Day Start:20-Mar-2015 Status:Aborted Comments:1 ea PO BID Metoprolol Tartrate_METO25TA25-AOM;25 MG ORAL Two Times a Day Start:19-Mar-2015 Comments:25 mg PO BID pantoprazole 40 MG Delayed R elease Oral Tablet;40 MG ORAL Daily Start:14-Feb-2015 Comments:40 mg PO DAILY clopidogrel;75 MG ORAL Daily Start:14-Feb-2015 Comments:75 mg PO DAILY atorvastatin calcium;40 MG O RAL Daily Start:14-Feb-2015 Comments:40 mg PO DAILY Analgesic Taylor;325 MG ORAL D aily Start:14-Feb-2015 Comments:325 mg PO DAILY lisinopril 40 mg tablet;40 M G ORAL Daily Start:14-Feb-2015 Comments:40 mg PO DAILY Lopressor_METO25TA51-AOM;12. 5 MG ORAL Two Times a Day Start:14-Feb-2015 Status:Aborted Comments:12.5 MG PO BID Furosemide 40 MG Oral Tablet ;40 MG Orally Once a day, 1 tablet Quantity:30 Jimi Mtz Comments:40 MG Orally Once a day, 1 tablet Ibuprofen 600 MG Oral Tablet ;600 MG Orally Three times a day, 1 tablet with food or milk as needed Jimi Mtz Comments:600 MG Orally Three times a day, 1 tablet with food or milk as needed Isosorbide Mononitrate 20 MG Oral Tablet;20 MG Orally Twice a day, 1 tablet Jimi Mtz Status:Inactive Comments:20 MG Orally Twice a day, 1 tablet Gabapentin;300 MG Orally Onc e a day, 1 capsule Quantity:30 Jimi Mtz Comments:300 MG Orally Once a day, 1 capsule pantoprazole 20 MG Delayed R elease Oral Tablet;20 MG Orally Once a day, 1 tablet Quantity:30 Jimi Mtz Comments:20 MG Orally Once a day, 1 tablet Lisinopril 20 MG Oral Tablet ;20 MG Orally Once a day, 1 tablet Quantity:30 Jimi Mtz Comments:20 MG Orally Once a day, 1 tablet apixaban 5 MG Oral Tablet [Eliquis];5 MG Oral , Quantity:60 Jimi Del Cid W Comments:5 MG Oral , B12;5000 MCG Sublingual , as directed Jimi Mtz Comments:5000 MCG Sublingual , as directed Social History Smoking Status Never smoked tobacco Recorded: 08-Jan-2020 Never smoked tobacco Recorded: 24-Nov-2019 Never smoked tobacco Recorded: 21-Feb-2019 Never smoked tobacco Never smoked tobacco Encounters pre-admission 20-Jan-2019 Anay Suero (Attending) Juliann pre-admission 20-Aug-2018 08:00 Juliann
--- OUTSIDE RECORDS SUMMARY | 2025-01-18 11:57 | XMS_ITS | Clinical Summary ---
Author Organization [facility] Address [address] [place] [address] Phone Care Team Providers Care Cna Ltc Name Role Phone Chris Nunn MD [ ] Conditions or Problems Problem Name Problem Code Onset Date Status Entry Date Provider Comment Standard Description Annotate Hx of pulmonary embolism 714270148 (SNOMED CT) 08/25 Resolved 08/25 Natalia Herron H/O: pulmonary embolus Morbid obesity due to excess calories E66.01 (ICD-10-CM ) 08/25 Active 08/25 Natalia Herron Morbid (severe) obesity due to excess calories Benign Essential Hypertension 87723035 (SNOMED CT) 08/25 Active 08/25 Natalia Herron Benign hypertension Candidiasis of vulva and vagina, acute B37.31 (ICD-10-CM ) 09/20 Active 09/20 Natalia Herron Acute candidiasis of vulva and vagina Yeast infection 8719367 (SNOMED CT) 09/20 Inactive 09/20 Chris Nunn MD Mycosis Scleroderma 96064459 (SNOMED CT) 08/25 Active 08/25 Dania Faulkner Systemic sclerosis Personal history of allergy Bactrim 047662024 (SNOMED CT) 08/25 Active 08/25 Dania Faulkner Allergy to antibacterial drug snf current use of anticoagulan ts 611703115 (SNOMED CT) 08/25 Active 08/25 Dania Faulkner Drug therapy finding Hx of pulmonary embolism 326843433 (SNOMED CT) 08/25 Removed 08/25 Dania Faulkner H/O: pulmonary embolus Presence of left artificial ankle joint 875612765 (SNOMED CT) 08/25 Active 08/25 Dania Faulkner Prosthetic total arthroplasty of ankle Morbid obesity 713855314 (SNOMED CT) 08/25 Inactive 08/25 Dania Faulkner Morbid obesity CAD (coronary artery disease) 54425315 (SNOMED CT) 08/25 Active 08/25 Dania Faulkner Coronary arteriosclerosis Hypertension 46326869 (SNOMED CT) 08/25 Inactive 08/25 Dania Faulkner Hypertensive disorder Chronic ulcer of left ankle, skin layer only 240862498 (SNOMED CT) 08/25 Active 08/25 Dania Faulkner Chronic ulcer of ankle Cellulitis of left lower limb 605793791 (SNOMED CT) 08/20 Active 08/20 Dania Faulkner Cellulitis of leg, excluding foot Chronic osteomyeliti s, left ankle 628050047 (SNOMED CT) 08/20 Active 08/20 Dania Faulkner Chronic osteomyelitis of ankle and/or foot Medications Medication Instructions Start Date Stop Date Generic Name NDC Provider MINOCYCLINE HCL 100 MG TABS Take 1 tablet by mouth once a day minocycline 67142107011 Chris Nunn MD Diflucan 200 mg tablet 1 tablet by mouth once a day as needed for yeast infection fluconazole 28886335850 Chris Nunn MD DOXYCYCLINE HYCLATE 100 MG CAPS 1 capsule by mouth once a day doxycycline hyclate 56896778487 Chris Nunn MD FOLIC ACID 400 MCG TABS Take 2 tablet by mouth once a day folic acid 69013588972 Margaret Bermudez ACETAMINOPHEN 500 MG TABS Take 1 tablet by mouth every six hours as needed acetaminophen 81591910579 Margaret Bermudez NATURAL VITAMIN D-3 125 MCG (5000 UT) TABS Take 1 tablet by mouth once a day cholecalciferol (vitamin d3) 99050833801 Margaret Bermudez ASPIRIN LOW DOSE 81 MG TBEC Take 1 tablet by mouth once a day aspirin 67511961070 Margaret Bermudez FUROSEMIDE 40 MG TABS Take 1 tablet by mouth once a day furosemide 35078350105 Margaret Bermudez apixaban (Eliquis) 5 mg Tab tablet Take 1 tablet by mouth twice a day Eliquis Margaret Bermudez PANTOPRAZOLE SODIUM 40 MG TBEC Take 1 tablet by mouth once a day pantoprazole 95287072624 Margaret Bermudez VITAMIN B-12 1000 MCG TABS Take 1 tablet by mouth once a day cyanocobalamin (vitamin b-12) 19921251662 Margaret Bermudez SACCHAROMYCES BOULARDII 250 MG CAPS Take 1 capsule (250 mg total) by mouth 2 (two) times daily for 7 days. saccharomyces boulardii 26278123200 QIE qieuser PANTOPRAZOLE SODIUM 40 MG TBEC Take 1 tablet (40 mg total) by mouth daily. pantoprazole 94979827854 QIE qieuser FUROSEMIDE 40 MG TABS Take 1 tablet (40 mg total) by mouth daily. furosemide 86530235438 QIE qieuser FOLIC ACID 400 MCG TABS Take 2 tablets (800 mcg total) by mouth daily. folic acid 10520987083 QIE qieuser VITAMIN B-12 1000 MCG TABS Take 1 tablet (1,000 mcg total) by mouth daily. cyanocobalamin (vitamin b-12) 14952789023 QIE qieuser NATURAL VITAMIN D-3 125 MCG (5000 UT) TABS Take 1 tablet (5,000 Units total) by mouth daily. cholecalciferol (vitamin d3) 75135252730 QIE qieuser ASPIRIN LOW DOSE 81 MG TBEC Take 1 tablet (81 mg total) by mouth daily. aspirin 70188699372 QIE qieuser apixaban (Eliquis) 5 mg Tab [...] down for the next 30 min.. alendronate 79184211832 QIE qieuser ACETAMINOPHEN 500 MG TABS Take 1 tablet (500 mg total) by mouth every 6 (six) hours as needed for up to 10 days. acetaminophen 39112899273 QIE qieuser Cubicin RF 500 mg intravenous solution 500mg IV Q24hrs/ OPAT daptomycin 69894517561 Jasmin Proctor RN CEFTRIAXONE SODIUM 2 GM SOLR 2gm IV Q24hrs/ OPAT ceftriaxone 37170403270 Jasmin Proctor RN Medications Administered No information [...] Procedures Code Procedure Name Date Entry Date CPT-55390 CMP [id number] CBC with Differential 2023 CPT-48629 C- reactive protein CPT-41118 Sedimentation Rate (ESR) 202 08/10/07 CPT-coral Change [...]
--- OUTSIDE RECORDS SUMMARY | 2025-01-18 11:57 | XMS_ITS | Encounter Summary ---
Author Organization [facility] ([place], [place], [place], [place]) Address [address] [place] [address] Care Team Providers Care Timekeeper Name Role Phone Santosh Briones MD Primary Care Provider [phone] Julius Cho MD Unavailable Lew Ross MD Unavailable Karlos Pringle PA-C Unavailable [phone] Reason for Visit * Reason Onset Date Comments Advice Only 01/10/2025 Encounter Details Date Type Department Care Team (Late st Contact Info) Description 01/10/2025 Telephone [facility] Cardiology [address] [place] [address] Lesly Sanchez, SALES REPRESENTATIVE [employer] [address] [place] [address] Advice Only Social History Tobacco [...] speak a language other than [place] at [facility]? No 08/17/2023 Do you want help with [...] Assigned at Female 03/19/2022 10:49 AM MANAGER [employer] Legal Sex Female 5:46 PM CDT Gender Identity Female 03/19/2022 10:49 AM MANAGER [employer] Sexual Orientation Not on file documented as of this encounter Miscellaneous Notes * Telephone Encounter - Arturo Prather - 01/10/2025 9:21 AM EDT Left detailed message for patient that the last office note where Lesly cleared patient for upcoming procedure 12/30 was faxed over to [facility] if she have any question she can contact our office back * Telephone Encounter - Devorah Fields - 01/10/2025 8:59 AM EDT Patient was calling needing her Cardiac Clearance faxed over to [facility] [phone] documented in this encounter Plan of Treatment Upcoming Encounters Date Type Department Care Team (Late st Contact Info) Description 04/06/2025 9:00 AM EST Office Visit [facility] Cardiology [address] [place] [phone] Lew Ross MD [address] [place] [address] [phone] documented as of this encounter Visit Diagnoses Not on filedocumented in this encounter Care Teams Timekeeper Relationship Specialty Start Date End Date Santosh Briones MD [address] [facility] [place] [address] PCP - General General Internal Medicine 04/23/22 Julius Cho MD [address] [place] [address] Referring Physician Internal Medicine 04/23/22 Lew Ross MD [address] [place] [address] [address] Cardiology 08/13/23 Karlos Pringle PA-C [address] [place] [address], [address] [place] [address] Cardiology 11/23/23 documented as of this encounter
--- OUTSIDE RECORDS SUMMARY | 2025-01-18 11:59 | XMS_ITS | Encounter Summary ---
Author Organization [employer] ([place], [place], [place], [place]) Address [address] [place] [address] Care Team Providers Care Layout Operator Name Role Phone Santosh Briones MD Primary Care Provider [phone] Santosh Briones MD Primary Care Provider Julius Cho MD Unavailable Lew Ross MD Unavailable Karlos Pringle PA-C Unavailable [phone] Encounter Details Date Type Department Care Team (Late st Contact Info) Description 12/19/2020 Transcribed Document [facility] [place] [facility] [place] [address] ProviderAle MD [address] [place] [address] Social History Tobacco Use Types Packs/Day Years Used Date Smoking Tobacco: Never Assessed Comments Unknown Sex and Gender Information Value Date Recorded Sex Assigned at Female 03/19/2022 10:49 AM 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 Main OR IntraOp Summary Primary Physician: MEE TUCKER, DPM-POD Finalized Date/Time: 12/21/20 10:05:58 Pt. Name: JANIS FIGUEREDO BILLIE BandaB./Sex: 1965 Female Med Rec #: [id number] Physician: MEE TUCKER, DPM-POD Financial #: [id number] Pt. Type: O Room/Bed: /9 Admit/Disch: 12/19/20 06:32:00 - 12/19/20 12:11:00 Institution: [facility] IntraOp Case Attendance Entry 1 Entry 2 Entry 3 Case Attendee MEE TUCKER BOWEN, JON B, MD-YVETTE ROSEN APRN DPM-POD Role Performed Surgeon/Proceduralist, Anesthesiologist of TEAROOM HOST/HOSTESS/Nurse Artificial Breeding Ranch Supervisor First Record Time In 12/19/20 07:55:00 12/19/20 [...] Rn Poe, Kali, RN Baker, Amanda S, Safekeeping Clerk Role Performed Livestock Judging Coach, First Livestock Judging Coach, Second Scrub, First Time In 12/19/20 07:55:00 [...] Case Attendee ROBERTO BELCHER RN Role Performed Livestock Judging Coach, First Time In 12/19/20 09:45:00 Time Out 12/19/20 10:03:00 Procedure Achilles Tendon Repair(Right), Bone Spur Excision Other Attendee BREAK Superficial Wound Closed By: Last Modified By: Julienne Atkins Rn 12/19/20 10:28:51 [facility] IntraOp Case Attendance Audit 12/19/20 10:28:51 Locomotive Engineer: [id number] Modifier: [id number] <+> Time Out 1 <*> Procedure [...] Tendon Repair(Right), Bone Spur Excision 12/19/20 10:03:51 Locomotive Engineer: [id number] Modifier: [id number] <+> Time Out 7 <*> Procedure Achilles Tendon Repair(Right), Bone Spur Excision 12/19/20 09:47:32 Locomotive Engineer: [id number] Modifier: [id number] 1 <*> Procedure Achilles Tendon Repair(Right), Bone [...] Procedure <+> 7 Other Attendee 12/19/20 07:58:46 Locomotive Engineer: [id number] Modifier: [id number] <+> [address] [facility] IntraOp Case Times Entry 1 Patient In Room Time 12/19/20 07:55:00 Out Room Time 12/19/20 10:23:00 Anesthesia Start Time 12/19/20 07:55:00 Stop Time 12/19/20 10:23:00 Surgery / Procedure Times Start Time 12/19/20 08:35:00 Stop Time 12/19/20 10:16:00 Last Modified By: Julienne Atkins Rn 12/19/20 10:28:41 [facility] IntraOp Case Times Audit 12/19/20 10:28:41 Locomotive Engineer: [id number] Modifier: [id number] <+> 1 Out Room Time <+> 1 Stop Time <+> 1 Stop Time 12/19/20 08:37:30 Locomotive Engineer: [id number] Modifier: [id number] <+> [address] [facility] IntraOp Cautery Entry 1 ESU Identification Cautery Type Monopolar ESU ID Number [id number] ID Type Hospital Number Cautery Settings Cut [...] By: Julienne Atkins Rn 12/19/20 07:59:56 [facility] IntraOp Communication Entry 1 Communication To Family/Significant other Communication By Domingo Conklin RN Date and Time 12/19/20 08:37:00 Last Modified By: Julienne Atkins Rn 12/19/20 08:37:40 [facility] IntraOp Counts Verification Entry 1 Procedure Achilles Tendon Repair(Right), Bone Spur Excision Count Info Count Type Sponge, Sharps Counts Verification Baseline/pre-procedure Sequence Count Results Not Applicable Counts Performed By Count Performed By Letitia Washington (Scrub) Safekeeping Clerk Count Performed By Domingo Conklin RN (RN) Last Modified By: Julienne Atkins Rn 12/19/20 08:00:18 [facility] IntraOp Counts Final Entry 1 Procedure Achilles Tendon Repair(Right), Bone Spur Excision Final Count Info Count Type Sponge, Sharps Counts Verification Skin Closure/end of Sequence procedure Count Results Correct, surgeon notified Counts Performed By Count Performed By Letitia Washington (Scrub) Safekeeping Clerk Count Performed By Julienne Atkins Rn (RN) Last Modified By: Julienne Atkins Rn 12/19/20 10:05:43 [facility] IntraOp Cultures and Spec Summary Entry 1 Cultrures and Specimens Specimen Ordered: Yes Test(s) Routine/Path-Lab Requested/Final Disposition Last Modified By: Julienne Atkins Rn 12/19/20 09:32:55 General Comments: A. RIGHT FOOT BONE [facility] IntraOp Delays Entry 1 Delay Reason Patient, other (document in comment) Duration 25 Minute(s) Comment PATIENT GETTING NERVE BLOCK Last Modified By: Julienne Atkins Rn 12/19/20 08:00:49 [facility] IntraOp Departure from OR Entry 1 Integumentary Assessment Integumentary WDL Assessment WDL Transfer/Handoff Transfer to PACU Phase I Handoff Method Bedside/Face to face, Phone call Post-op Transport Stretcher/Gurney Via Patient Transport YVETTE CEJA, Accompanied by Wilbert CLEVELAND Tracy R, Viri, Domingo Conklin RN Last Modified By: Julienne Atkins Rn 12/19/20 08:01:04 [facility] IntraOp Drains and Tubes Entry 1 Device Type South English Size 1/4 Drain/Tube Activity Inserted Drain/Tube Suction Boley Drain/Tube Drainage Red Device Location RIGHT LOWER LEG Method of Drainage Boley Last Modified By: Julienne Atkins Rn 12/19/20 08:49:09 [facility] IntraOp Dressing and Packing Entry 1 Type Dressing Location RIGHT FOOT Wound Dressing Item 4x4's, Kerlix/Janie, Johnnie, Other Applied By MEE TUCKER, DPOswald-POD Other Comments SILVER DRESSING Last Modified By: Julienne Atkins Rn 12/19/20 10:05:02 [facility] IntraOp Dressing and Packing Audit 12/19/20 10:05:02 Locomotive Engineer: [id number] Modifier: [id number] 1 <*> Wound Dressing Item 4x4's, Kerlix/Janie, Johnnie 1 <+> Applied By 1 <*> Other Comments ACTICOAT [facility] IntraOp Fire Risk Assessment Entry 1 [...] By: Julienne Atkins Rn 12/19/20 08:01:48 [facility] IntraOp General Case Integration Analyst 1 Case Information OR OR 02 [facility] Case Level 1 Room Verified Yes Wound Class I - Clean Specialty Podiatry Anesthesia Type General ASA Class 3 Diagnosis Preop Diagnosis RIGHT ACHILLES INJURY Postop Same As Preop No Postop Diagnosis SEE MD NOTES Last Modified By: Julienne Atkins Rn 12/19/20 08:02:15 [facility] IntraOp Implant Log Entry 1 Entry 2 Entry 3 Type Tissue Implant Implant (Synthetic) Implant (Synthetic) (Biologic) Implant Log Implant Type Hardware Hardware Tissue Implant Type Tissue Implant IMP STRAVIX [id number] ARTHREX ANCHOR KT IB PLUS BC W/CC FT Identification [id number] Description Implant Quantity 1 2 1 Implant Site RIGHT ANKLE RIGHT FOOT RIGHT FOOT Implant Identification Model Number Implant [id number] Identification Serial Number Implant [id number] Identification Lot Number Implant [employer] ARTHREX Arthrex Identification Cost Manager Name: Implant [id number] Identification Catalog Number Implant Size Implant Has an Yes Yes Yes Expiration Date Implant Expiration 04/13/23 08/01/22 07/01/22 Date Wasted Radioactive Material Time Implanted Tissue Implant Continue for Tissue Implant Documentation Tissue Identification Number Graft Prep Per Yes Cost Manager Instructions: Tissue Preparation N/A Method: Reconstitution Solution: Reconstitution Solution Lot Number Reconstitution Solution Expiration Date: Thawing Solution Thawing Solution Lot Number Thawing Solution Expiration Date Preparation Materials, Other Preparation Materials, Other Lot Number Preparation Materials, Other Expiration Date MEE Ash, Prepared/Processed DPM-POD By Cost Manager Yes Paperwork Completed Implant Type Comment Last Modified By: AtkinsJulienne Rn Compton, Tracy R, Rn Compton, Tracy R, Rn 12/19/20 09:32:32 12/19/20 09:32:32 12/19/20 09:32:32 Entry 4 Type Implant (Synthetic) Implant Log Implant Type Tissue Implant Type Implant ARTHREX SUTURE TAPE REF Identification [id number] Description Implant Quantity 1 Implant Site OPSITE Implant Identification Model Number Implant Identification Serial Number Implant [id number] Identification Lot Number Implant Identification Cost Manager Name: Implant Identification Catalog Number Implant Size Implant Has an Yes Expiration Date Implant Expiration 08/31/25 Date Wasted Radioactive Material Time Implanted Tissue Implant Continue for Tissue Implant Documentation Tissue Identification Number Graft Prep Per Cost Manager Instructions: Tissue Preparation Method: Reconstitution Solution: Reconstitution Solution Lot Number Reconstitution Solution Expiration Date: Thawing Solution Thawing Solution Lot Number Thawing Solution Expiration Date Preparation Materials, Other Preparation Materials, Other Lot Number Preparation Materials, Other Expiration Date Tissue Prepared/Processed By Cost Manager Paperwork Completed Implant Type Comment Last Modified By: Julienne Atkins Rn 12/19/20 10:03:35 [facility] IntraOp Implant Log Audit 12/19/20 10:03:35 Locomotive Engineer: [id number] Modifier: [id number] <+> 4 Implant Identification Description <+> 4 Implant Identification Lot Number <+> 4 Implant Expiration Date <+> 4 Implant Site <+> 4 Implant Quantity <+> 4 Implant Has an Expiration Date <+> [address] [facility] IntraOp Intraoperative Assessment Entry 1 Handoff [...] By: Julienne Atkins Rn 12/19/20 08:03:12 [facility] IntraOp Intraoperative Equipment Entry 1 Type Equipment Equipment Equipment Yumi Suction System ID Number [id number] Setting ON Intraop Monitoring Blood Pressure Non-Invasive BP Device Source Antiembolic Devices Scopes Photo/Video Documentation Last Modified By: Julienne Atkins Rn 12/19/20 08:03:54 [facility] IntraOp Medication Admin Entry 1 Medication/Irrigant LAILA IRR NACL 0.9PCT 2000ML [facility]-[id number] Time Administered 12/19/20 08:35:00 Route of IRRIGATION Administration Dose Administered By MEE TUCKER DPM-POD Procedure Irrigation Last Modified By: Julienne Atkins Rn 12/19/20 09:04:22 [facility] IntraOp Medication Admin Audit 12/19/20 09:04:22 Locomotive Engineer: [id number] Modifier: [id number] 1 <*> Medication/Irrigant LAILA IRR NACL 0.9PCT 2000ML [facility]-[id number] 1 <+> Time Administered [facility] IntraOp Patient Positioning Entry 1 Procedure [...] By: Julienne Atkins Rn 12/19/20 08:05:17 [facility] IntraOp Sign In Entry 1 Patient, [...] By: Julienne Atkins Rn 12/19/20 08:05:29 [facility] IntraOp Sign Out Entry 1 RN [...] By: Julienne Atkins Rn 12/19/20 10:28:48 [facility] IntraOp Sign Out Audit 12/19/20 10:28:48 Locomotive Engineer: [id number] Modifier: [id number] <+> 1 RN Sign Out Signature Date/Time [facility] IntraOp Skin Prep Entry 1 Procedure Achilles Tendon Repair(Right), Bone Spur Excision Prescribed Yes Pre-Surgical Prep Completed Prep Area RIGHT FOOT AND LOWER LEG TO KNEE Intraop Prep Integumentary WDL Assessment WDL Prep Agents Chloraprep Prep by Julienne Atkins Rn Hair Removal Methods No hair removal performed Last Modified By: Julienne Atkins Rn 12/19/20 08:08:22 [facility] IntraOp Surgical Procedures Entry 1 Entry [...] R, Rn 12/19/20 10:28:50 12/19/20 10:28:50 [facility] IntraOp Surgical Procedures Audit 12/19/20 10:28:50 Locomotive Engineer: [id number] Modifier: [id number] <+> 1 Stop <+> [address] [facility] IntraOp Temp Regulation Devices Entry 1 Temp Regulation Temperature Forced Air Warming Regulation Device device, Warm blankets Temperature 902804 Regulation Device Serial/Unit Number Temperature Upper body Regulation Site Temperature Device on Setting Temperature YVETTE CEJA APRN Regulation Device Applied by Last Modified By: Julienne Atkins Rn 12/19/20 08:39:43 [facility] IntraOP Time Out Entry 1 Procedure [...] By: Julienne Atkins Rn 12/19/20 08:38:12 [facility] IntraOp Tourniquet Entry 1 Type Pneumatic Serial/Unit Number [id number] Setting 300 mmHg Pheumatic Yes Tourniquet Checked Per Protocol Placement Thigh, right upper Skin Protection - Yes Padded Under Cuff Applied By Julienne Atkins Rn Removed By MEE TUCKER DPM-POD Times Start Time 12/19/20 08:34:00 Stop Time 12/19/20 10:15:00 Total Time 101 calculated manually (Mins) Last Modified By: Julienne Atkins Rn 12/19/20 10:16:00 [facility] IntraOp Tourniquet Audit 12/19/20 10:16:00 Locomotive Engineer: [id number] Modifier: [id number] <+> 1 Total Time calculated manually (Mins) [...] Description 04/06/2025 9:00 AM EST Office Visit [facility] Cardiology [address] [place] [address] [place] [address] [place] [address] [address] [place], [place] [id number] documented as of this encounter Visit Diagnoses Not on filedocumented in this encounter Care Teams Layout Operator Relationship Specialty Start Date End Date Santosh Briones MD [address] [place], [place] [id number] PCP - General General Internal Medicine 04/18/22 04/22/22 Santosh Briones MD [address] [place], [place] [id number] PCP - General General Internal Medicine 04/23/22 Julius Cho MD [address] [place] [address] Referring Physician Internal Medicine 04/23/22 [place] [address] [place] [address] [address] [place], [place] [id number] Cardiology 08/13/23 Karlos Pringle PA-C [address] [facility], [facility] [address] [place] [address] Cardiology 11/23/23 documented as of this encounter
--- OUTSIDE RECORDS SUMMARY | 2025-01-18 11:59 | XMS_ITS | CCD ---
Author Name Interface, [id number] Address [address] [place] [address] Oncology an d Hematology Address [address] [place] [address] Care Team Providers Care Beef Trimmer Name Role Phone Misbah STEWART, Fuentes Unavailable Unavailable Allergies and Adverse Reactions Reason for Visit Medications Problems Social History
--- OUTSIDE RECORDS SUMMARY | 2025-01-18 11:59 | XMS_ITS | Encounter Summary ---
Author Organization Healthcare Address [address] [place] [address] Care Team Providers Care Concrete Hopper Operator Name Role Phone Santosh Briones MD Primary Care Provider [phone] Abby Phillip APRN Primary Care Provider [phone] Encounter Details Date Type Department Care Team (Late st Contact Info) Description 09/09/2024 Orders Only External Location [address] [place] [address] Provider, External Social History Tobacco Use Types Packs/Day Years [...] Procedure Name Priority Date/Time Associated Diagnosis Comments MR NEURO OUTSIDE IMAGES 09/09/2024 11:46 AM EDT documented in this encounter Results * MR NEURO OUTSIDE IMAGES (09/09/2024 11:46 AM EDT) Anatomical Region Laterality Modality Magnetic Resonan ce 09/09/2024 11:4 6 AM EDT us External Provider IMG MRI PROCEDURES Final Resul t documented in this encounter Visit Diagnoses Not on filedocumented in this encounter Care Teams Concrete Hopper Operator Relationship Specialty Start Date End Date Santosh Briones MD [address] [place] [address] PCP - General 12/31/21 01/02/25 Abby Phillip APRN [address] [place] [address] PCP - General 01/03/25 documented as of this encounter
--- OUTSIDE RECORDS SUMMARY | 2025-01-18 11:59 | XMS_ITS | Encounter Summary ---
Author Organization Healthcare Address [address] [place] [address] Care Team Providers Care Cruller Maker Machine Name Role Phone Abby Phillip APRN Primary Care Provider [phone] Encounter Details Date Type Department Care Team (Latest Contact Info) Description 01/16/2025 Travel Social History Tobacco Use Types Packs/Day [...] Diagnoses Not on filedocumented in this encounter Additional Health Concerns Assessment Noted Time A fall risk assessment has been complete d for the patient 01/16/2025 9:07 AM EDT A Body Mass Index follow-up plan has been documented for the patient 01/16/2025 11:01 AM EDT documented as of this encounter Care Teams Cruller Maker Machine Relationship Specialty Start Date End Date Abby Phillip APRN [address] [place] [address] PCP - General 01/03/25 documented as of this encounter
--- OUTSIDE RECORDS SUMMARY | 2025-01-18 11:59 | XMS_ITS | Encounter Summary ---
Author Organization [employer] ([place], [place], [place], [place]) Address [address] [place] [address] Care Team Providers Care Communications Project Manager Name Role Phone Santosh Briones MD Primary Care Provider [phone] Santosh Briones MD Primary Care Provider [phone] Julius Cho MD Unavailable Lew Ross MD Unavailable Karlos Pringle PA-C Unavailable [phone] Encounter Details Date Type Department Care Team (Late st Contact Info) Description 12/19/2020 Transcribed Document [facility] [place] Family Medicine [facility] [place] [address] ProviderAle MD [address] [place] [address] Social History Tobacco Use Types Packs/Day Years Used Date Smoking Tobacco: Never Assessed Comments Unknown Sex and Gender Information Value Date Recorded Sex Assigned at Female 03/19/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 [address] JANIS FIGUEREDO :1965 Visit Time:12/19/2020 What [...] Comments Follow up Thursday as scheduled Where: [address] [place] [address] [address] [place] [address]- Medications What How Much When Instructions Next Dose acetaminophen-oxyCODONE (acetaminophen-oxyCODONE 325 mg-7.5 mg oral tablet) 1 Tablet(s) Oral Every 6 Hours as needed for for pain Pickup at [place] [address] apixaban (Eliquis 5 mg oral tablet) 1 Tablet(s) Oral Two Times A Day atorvastatin (atorvastatin 40 mg oral tablet) 1 Tablet(s) Oral Every Day cephalexin (Keflex 500 mg oral capsule) 1 Capsule(s) Oral Every 8 Hours Duration: 1 Day(s) Pickup at [place] [address] cyanocobalamin (Vitamin B12 1000 mcg oral tablet) [...] for as needed for nausea/vomiting Pickup at [place] [address] Pharmacy Information [place] [address]: [address] [facility] [phone] Take your medications faithfully. Do NOT skip [...] activities are safe for you. ??? Take mpwv-msa-lzcurgi and prescription medicines only as told by [...] provider. Document Revised: 04/23/2018 Document Reviewed: 12/04/2017 [employer] Patient Education ?? 2020 [employer]. Emergency Awareness and Preventative Care STROKE is [...] Assistance with quitting is available by contacting 8-813-DAPPNOW. This is a free resource providing counseling, [...] was given the opportunity to ask questions. Patient/Rn Plastic Surgery Name: Patient/Rn Plastic Surgery Signature: Relationship to Patient: Clinician/Hospital Rn Plastic Surgery Signature: Date: documented in this encounter Plan of Treatment Upcoming Encounters Date Type Department Care Team (Late st Contact Info) Description 04/06/2025 9:00 AM EST Office Visit [facility] Cardiology [address] [place] [phone] [place] [address] [place] [address] [address] documented as of this encounter Visit Diagnoses Not on filedocumented in this encounter Care Teams Communications Project Manager Relationship Specialty Start Date End Date Santosh Briones MD [address] [place] [address] PCP - General General Internal Medicine 04/18/22 04/22/22 Santosh Briones MD [address] [facility] [place] [address] [place] [address] PCP - General General Internal Medicine 04/23/22 Julius Cho MD [address] [place] [address] Referring Physician Internal Medicine 04/23/22 Lew Ross MD [address] [place] [address] [id number] Cardiology 08/13/23 Karlos Pringle PA-C [address] [facility], [facility] [address] [place] [address] Cardiology 11/23/23 documented as of this encounter
--- OUTSIDE RECORDS SUMMARY | 2025-01-18 11:59 | XMS_ITS | Encounter Summary ---
Author Organization Healthcare Address [address] [place] [address] Care Team Providers Care Calculator Operator Name Role Phone Santosh Briones MD Primary Care Provider [phone] Abby Phillip APRN Primary Care Provider [phone] Encounter Details Date Type Department Care Team (Late st Contact Info) Description 09/09/2024 Orders Only External Location [address] [place] [address] Provider, External Social History Tobacco Use Types [...] Diagnosis Comments MR NEURO OUTSIDE IMAGES 09/09/2024 11:06 AM EDT documented in this encounter Results * MR NEURO OUTSIDE IMAGES (09/09/2024 11:06 AM EDT) Anatomical Region Laterality Modality Magnetic Resonan ce 09/09/2024 11:0 6 AM EDT us External Provider IMG MRI PROCEDURES Final Resul t documented in this encounter Visit Diagnoses Not on filedocumented in this encounter Care Teams Calculator Operator Relationship Specialty Start Date End Date Santosh Briones MD [address] [place] [address] PCP - General 12/31/21 01/02/25 Abby Phillip APRN [address] [place] [address] PCP - General 01/03/25 documented as of this encounter
--- OUTSIDE RECORDS SUMMARY | 2025-01-18 11:59 | XMS_ITS | Clinical Summary ---
Author Organization [facility] Address [address] [place] [address] Care Team Providers Care President & Ceo Name Role Phone Abby Phillip CRISTOFER Primary Care Provider [phone] Allergies Active Allergy Reactions Criticality Noted Date Comments Morphine Other - please docum ent in the comment field,Unknown - Patient states they do not know rxn details Low 07/19/2018 Chest pain Sulfamethoxazole-Trimeth oprim Nausea,Vomiting,Unknown - Patient states they do not know rxn details Low 07/19/2018 Medications ibandronate (Boniva) 150 MG tablet Take 1 tablet by mouth. Active gabapentin (Neurontin) 300 MG capsule Take 1 capsule by mouth 3 times a day. Active furosemide (Lasix) 40 MG tablet Take 1 tablet by mouth 1 time each day. 07/19/2018 Active folic acid (Folvite) 400 MCG tablet Take 2 tablets by mouth 1 time each day. Active acetaminophen (Tylenol 8 Hour) 650 MG ER tablet Take 1 tablet by mouth. Active apixaban (Eliquis) 5 MG tablet Take 1 tablet by mouth twice a day. 09/06/2018 Active ASPIRIN 81 MG chewable tablet Chew 1 tablet 1 time each day. Active cholecalciferol (Vitamin D3) 5,000 Units tablet Take 1 tablet by mouth 1 time each day. Active DULoxetine (Cymbalta) [address] capsule Take 1 capsule by mouth 1 time each day. 12/27/2024 Active ibuprofen 800 MG tablet TAKE ONE TABLET BY MOUTH EVERY 8 HOURS NEEDED FOR PAIN --TAKE WITH FOOD-- Active LANSOPRAZOLE PO 07/19/2018 Act wilian methocarbamol (Robaxin) 750 MG tablet Take 1 tablet by mouth 3 times a day. Active minocycline 100 MG capsule 12/27/2024 Active oxyCODONE (Roxicodone) 5 MG immediate release tablet as needed. 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 08/21/2023 01/16/2025 CAD (coronary artery disease) 08/17/2023 01/16/2025 Osteomyelitis of left foot 08/17/2023 0 01/16/2025 Scleroderma 08/17/2023 01/16/2025 Ankle pain, left 07/18/2022 01/16/2025 Chronic ulcer of ankle 07/18/202201/16 Stasis, venous 07/18/2022 01/16/2025 ADONIS (obstructive sleep apnea) 04/23/2022 01/16/2025 History of arthroplasty of left ankle 04/23/2022 01/16/2025 Pain management 04/23/2022 01/16/2025 Deep vein thrombosis (DVT) 09/06/2018 0 01/16/2025 Abdominal pannus 07/19/2018 01/16/2025 Excess skin of abdomen 07/19/201801/16 Hernia of abdominal wall 07/09/2012 Encounters Date Type Department Care Team Description 01/16/2025 10:18 AM EDT - 01/16/2025 11:59 PM EDT Hospital Encounter [facility] Clinic Radiology [address], [address] [place] [id number] Bilateral hip pain Discharge Disposition: Home or Self Care 01/16/2025 9:[address] Clinic Medicine Specialties [address], [address] [place] [address] Graeme, May R, TOP FLAVOR ATTENDANT History of DVT (deep vein thrombosis) (Primary Dx); GARRY positive; Polyarthralgia; Bilateral hip pain 01/16/2025 Travel from Last 3 Months Immunizations Immunization Administration Dates Next Due Influenza, seasonal, injectable, preservative fr ee 01/28/2024 Pneumococcal 20-will Conj Vaccine 01/28/2024 Tdap 07/17/2022 Zoster, Recombinant 01/23/2023 Family History Medical History Relation Name Comments Diabetes Brother Obesity Brother Recurrent Infections Brother Diabetes Father Heart disease Father Relation Name Status Comments Brother Alive Father Social History Tobacco Use Types Packs/Day Years [...] Mass Index 46.61 01/16/2025 9:00 AM EDT Plan of Treatment Health Maintenance [...] Cancer Screening 2008 [facility]-Breast Cancer Screening 2013 [facility]-RSV Vaccine: 60+ Years or (1 - Risk 60-74 years 1-dose series) 2023 [facility]-Zoster Vaccines (2 of 2) 03/20/2023 01/23/2023 [id number] Vaccine (5 - 2024- season) 2025 10/29/2021, 02/01/2021, 05/23/2020, Additional history exists [facility]-Influenza Vaccine (#1) 2025 01/28/2024 [facility]-DTaP,Tdap,and Td Vaccines (2 - Td or Tdap) 07/17/2032 07/17/2022 [facility]-Pneumococcal Vaccine: 50+ Years Completed 01/28/2024 [facility]-Obesity Intervention Completed 01/16/2025 HPV Vaccines Aged Out No longer eligi [...] on patient's age to complete this topic Procedures Procedure Name Priority Date/Time Associated Diagnosis Comments XR SACROILIAC JOINTS 3+ VIEWS Routine 01/16/2025 10:29 AM EDT Bilateral hip pain URINALYSIS MICROSCOPIC FOR UA REFLEX Routine 01/16/2025 10:16 AM EDT GARRY positive PROTEIN, URINE, RANDOM WITH CREATININE Routine 01/16/2025 10:16 AM EDT GARRY positive URINALYSIS WITH REFLEX MICROSCOPIC Routine 01/16/2025 10:16 AM EDT GARRY positive DRVVT Routine 01/16/2025 10:15 AM EDT History of DVT (deep vein thrombosis) GARRY positive DNA ISOLATION AND HOLD (HLA) Routine 01/16/2025 10:15 AM EDT Polyarthralgia BETA-2 GLYCOPROTEIN 1 ANTIBODY, IGA (SO) Routine 01/16/2025 10:15 AM EDT History of DVT (deep vein thrombosis) GARRY positive ANTI-BETA 2 GLYCOPROTEIN, IGG AND IGM Routine 01/16/2025 10:15 AM EDT History of DVT (deep vein thrombosis) GARRY positive ANTICARDIOLIPIN Routine 01/16/2025 10:15 AM EDT History of DVT (deep vein thrombosis) GARRY positive LUPUS ANTICOAGULANT PROFILE Routine 01/16/2025 10:15 AM EDT History of DVT (deep vein thrombosis) GARRY positive RPR WITH REFLEX TO TITER Routine 01/16/2025 10:15 AM EDT History of DVT (deep vein thrombosis) GARRY positive ANTINUCLEAR ANTIBODY (GARRY) WITH HEP-2 SUBSTRATE, IGG BY IFA (SO) Routine 01/16/2025 10:15 AM EDT GARRY positive C3 COMPLEMENT Routine 01/16/2025 10:15 AM EDT GARRY positive C4 COMPLEMENT Routine 01/16/2025 10:15 AM EDT GARRY positive CBC WITH AUTO DIFFERENTIAL Routine 01/16/2025 10:15 AM EDT GARRY positive THYROID PEROXIDASE ANTIBODY Routine 01/16/2025 10:15 AM EDT GARRY positive TSH Routine 01/16/2025 10:15 AM EDT GARRY positive HLA B27 TYPING Routine 01/16/2025 10:15 AM EDT Polyarthralgia RHEUMATOID FACTOR, PLASMA Routine 01/16/2025 10:15 AM EDT Polyarthralgia CYCLIC CITRUL PEPTIDE ANTIBODY IGG Routine 01/16/2025 10:15 AM EDT Polyarthralgia from Last 3 Months Results * XR Sacroiliac Joints 3+ Views [...] on 01/16/2025 10:53 AM May R Graeme [facility] XR PROCEDURES Final Res ult * Urinalysis Microscopic Examination (01/16/2025 10:16 AM EDT) Urine Urine specimen obtained by clean catch procedure / Unknown Non-blood Collection / Unknown 01/16/2025 10:16 AM EDT 01/16/2025 10:16 AM EDT May R Graeme [facility] URINE ORDERABLES Final Result Performing Organization Address City/[facility]/ZIP Co de Phone Number [facility] [address] [place] [address] * Protein, Random, Urine with Creatinine (01/16/2025 10:16 AM EDT) Protein, Urine 6 mg/dL 01/16/2025 12:12 PM EDT [facility] Creatinine, Urine 34 mg/dL 01/16/2025 12:12 PM EDT [facility] Protein/Creatin ine Ratio 0.2 mg/mg Creat 01/16/2025 12:12 PM EDT [facility] Urine Urine specimen obtained by clean catch procedure / Unknown Non-blood Collection / Unknown 01/16/2025 10:16 AM EDT 01/16/2025 10:16 AM EDT May R Graeme [facility] URINE ORDERABLES Final Result [facility] [address] [place] [address] * (ABNORMAL) Urinalysis with reflex microscopic (Culture NOT Included) (01/16/2025 10:16 AM EDT) Color, Urine Yellow LAB URINALYSIS - AUTOMATED METHOD 01/16/2025 11:59 AM EDT [facility] Clarity, Urine Clear LAB URINALYSIS - AUTOMATED METHOD 01/16/2025 11:59 AM EDT [facility] Spec [place], Urine 1.013 1.005 - 1.030 LAB URINALYSIS - AUTOMATED METHOD 01/16/2025 11:59 AM EDT [facility] pH, Urine 6.0 5.0 - 8.0 LAB URINALYSIS - AUTOMATED METHOD 01/16/2025 11:59 AM EDT [facility] Protein, Urine Negative Negative mg/dL LAB URINALYSIS - AUTOMATED METHOD 01/16/2025 11:59 AM EDT [facility] Glucose, Urine Negative Negative mg/dL LAB URINALYSIS - AUTOMATED METHOD 01/16/2025 11:59 AM EDT [facility] Ketones, Urine Negative Negative mg/dL LAB URINALYSIS - AUTOMATED METHOD 01/16/2025 11:59 AM EDT [facility] Blood, Urine Large(A) Negative LAB URINALYSIS - AUTOMATED METHOD 01/16/2025 11:59 AM EDT [facility] Bilirubin, Urine Negative Negative LAB URINALYSIS - AUTOMATED METHOD 01/16/2025 11:59 AM EDT [facility] Urobilinogen, Urine 0.2 0.2 to 1.0 mg/dL LAB URINALYSIS - AUTOMATED METHOD 01/16/2025 11:59 AM T [facility] Leukocytes, Urine Small(A) Negative LAB URINALYSIS - AUTOMATED METHOD 01/16/2025 11:59 AM EDT [facility] Nitrite, Urine Negative Negative LAB URINALYSIS - AUTOMATED METHOD 01/16/2025 11:59 AM EDT [facility] RBC, Urine 11 - 15(A) 0 to 3 /HPF LAB URINALYSIS - AUTOMATED METHOD 01/16/2025 11:59 AM EDT [facility] WBC, Urine 6 - 10(A) 0 to 5 /HPF LAB URINALYSIS - AUTOMATED METHOD 01/16/2025 11:59 AM EDT [facility] Squamous Epithelial Cells 11 - 20(A) 0 to 5 /HPF LAB URINALYSIS - AUTOMATED METHOD 01/16/2025 11:59 AM EDT [facility] Hyaline Casts 0 - 2 0 to 5 /LPF LAB URINALYSIS - AUTOMATED METHOD 01/16/2025 11:59 AM EDT [facility] Bacteria, Urine Negative Negative LAB URINALYSIS - AUTOMATED METHOD 01/16/2025 11:59 AM EDT [facility] Urine Urine specimen obtained by clean catch procedure / Unknown Non-blood Collection / Unknown 01/16/2025 10:16 AM EDT 01/16/2025 10:16 AM EDT may R Graeme [facility] URINE ORDERABLES Final Result Performing Organization Address City/[facility]/ZIP Co de Phone Number [facility] [address] [place] [address] * RPR With Reflex to Titer (01/16/2025 10:15 AM EDT) Pathologist [facility] Rapid Plasma Reagin Nonreactive Non Reactive 01/17/2025 12:43 AM EDT [facility] Blood Venous blood specimen / Unknown Venipuncture / Unknown 01/16/2025 10:15 AM EDT 01/16/2025 10:15 AM EDT us May R Graeme [facility] BLOOD ORDERABLES Final Result Performing Organization Address City/[facility]/ZIP Co de Phone Number [facility] [address] [place] [address] * DNA Isolation and Hold (HLA) (01/16/2025 10:15 AM EDT) Blood Venous blood specimen / Unknown Venipuncture / Unknown 01/16/2025 10:15 AM EDT 01/16/2025 10:15 AM EDT [facility] MOLECULAR DIAGNOSTICS O RDERABLES Final Result Performing Organization Address City/[facility]/ZIP Co de Phone Number [facility] [address] [place] [address], [place] * Anti-Beta 2 Glycoprotein, IgG and IgM (01/16/2025 10:15 AM EDT) Anti-Beta 2 Glycoprotein 1, IgG 2.2 <20.0 U/mL 01/16/2025 3:19 PM EDT [facility] Anti-Beta 2 Glycoprotein IgG Interpretation Negative Negative 01/16/2025 3:19 PM EDT [facility] Anti-Beta 2 Glycoprotein 1, IgM <1.5 <20.0 U/mL 01/16/2025 3:19 PM EDT [facility] Anti-Beta 2 Glycoprotein IgM Interpretation Negative Negative 01/16/2025 3:19 PM EDT [facility] Blood Venous blood specimen / Unknown Venipuncture / Unknown 01/16/2025 10:15 AM EDT 01/16/2025 10:15 AM EDT may Graeme TOP FLAVOR ATTENDANT LAB BLOOD ORDERABLES Final Result [facility] [address] [place] [address] * Beta-2 Glycoprotein 1 Antibody, IgA (01/16/2025 10:15 AM EDT) [id number] 1, IgA Antibody <10 <=20 KARON 01/18/2025 4:33 AM EDT [employer] ([place]) Serum 01/16/2025 10:1 5 AM EDT 01/16/2025 10:15 AM EDT Narrative [facility] [employer] ([place]) - 01/18/2025 4:33 AM EDT Performed By: [facility] [address] [place] [address] Communications Operator: El Duarte MD, PhD CLIA Number: [id number] May Graeme TOP FLAVOR ATTENDANT LAB BLOOD ORDERABLES Final Result [facility]) [address] [place] [address] * Anticardiolipin IgG and IgM (01/16/2025 10:15 AM EDT) IgG Anticardiolipin 2.00 <20.00 GPL Units/mL 01/16/2025 3:19 PM EDT [facility] Anticardiolipin IgG Interpretation Negative Negative 01/16/2025 3:19 PM EDT [facility] IgM Anticardiolipin <1.50 <20.00 MPL Units/mL 01/16/2025 3:19 PM EDT [facility] Anticardiolipin IgM Interpretation Negative Negative 01/16/2025 3:19 PM EDT [facility] Blood Venous blood specimen / Unknown Venipuncture / Unknown 01/16/2025 10:15 AM EDT 01/16/2025 10:15 AM EDT may R Graeme [facility] BLOOD ORDERABLES Final Result Performing Organization Address City/[facility]/ZIP Co de Phone Number [facility] [address] [place] [address] * HLA B27 Typing (01/16/2025 10:15 AM EDT) Blood Venous blood specimen / Unknown Venipuncture / Unknown 01/16/2025 10:15 AM EDT 01/16/2025 10:15 AM EDT may Graeme [facility] BLOOD ORDERABLES Final Result Performing Organization Address [facility] Co de Phone Number [facility] [address] [place] [address], [place] * Thyroid Peroxidase Antibody (01/16/2025 10:15 AM EDT) Thyroid Peroxidase Antibody <5 <=8 IU/mL 01/16/2025 1:57 PM EDT [facility] Blood Venous blood specimen / Unknown Venipuncture / Unknown 01/16/2025 10:15 AM EDT 01/16/2025 10:15 AM EDT May Graeme [facility] BLOOD ORDERABLES Final Result Performing Organization Address City/[facility] Co de Phone Number [facility] [address] [place] [address] * Cyclic Citrul Peptide Antibody IgG (01/16/2025 10:15 AM EDT) Cyclic Citrul Peptide Antibody IgG <5.0 <=5.0 U/mL 01/16/2025 3:17 PM EDT [facility] Blood Venous blood specimen / Unknown Venipuncture / Unknown 01/16/2025 10:15 AM EDT 01/16/2025 10:15 AM EDT may Graeme TOP FLAVOR ATTENDANT LAB BLOOD ORDERABLES Final Result [facility] [address] [place] [address] * (ABNORMAL) Lupus Anticoagulant Profile (01/16/2025 10:15 AM EDT) Lupus Anticoagulant Result Lupus anticoagulant (LA) not detected by either LA-sensitive aPTT or dRVVT assays. If clinical suspicion for antiphospholipid syndrome is high, consider testing for antibodies against cardiolipin and [id number] n I. 01/17/2025 11:38 AM EDT [facility] aPTT Lupus Anticoagulant Sensitive 36.9 <=41.0 sec LAB COAGULATION METHOD 01/17/2025 11:38 AM EDT [facility] DRVVT Screen 52.4 sec LAB COAGULATION METHOD 01/17/2025 11:38 AM EDT [facility] DRVVT Screen Ratio 1.39(H) <1.20 LAB COAGULATION METHOD 01/17/2025 11:38 AM EDT [facility] DRVVT Confirmation 53.3 sec LAB COAGULATION METHOD 01/17/2025 11:38 AM EDT [facility] DRVVT Confirmation Ratio 1.53 LAB COAGULATION METHOD 01/17/2025 11:38 AM EDT [facility] DRVVT Screen Ratio/Confirmat ion Ratio 0.91 <1.20 LAB COAGULATION METHOD 01/17/2025 11:38 AM EDT [facility] Blood Venous blood specimen / Unknown Venipuncture / Unknown 01/16/2025 10:15 AM EDT 01/16/2025 10:15 AM EDT may Graeme TOP FLAVOR ATTENDANT LAB BLOOD ORDERABLES Final Result [facility] [address] [place] [address] * DRVVT (01/16/2025 10:15 AM EDT) Blood Venous blood specimen / Unknown Venipuncture / Unknown 01/16/2025 10:15 AM EDT 01/16/2025 10:15 AM EDT may R Graeme TOP FLAVOR ATTENDANT LAB BLOOD ORDERABLES Final Result [facility] [address] [place] [address] * (ABNORMAL) CBC and Differential (01/16/2025 10:15 AM EDT) WBC Count 6.41 3.70 - 10.30 10*3/uL LAB HEMATOLOGY METHOD 01/16/2025 11:33 AM EDT [facility] RBC Count 3.88(L) 3.90 - 5.20 10*6/uL LAB HEMATOLOGY METHOD 01/16/2025 11:33 AM EDT [facility] HGB 10.0(L) 11.2 - 15.7 g/dL LAB HEMATOLOGY METHOD 01/16/2025 11:33 AM EDT [facility] HCT 33.6(L) 34.0 - 45.0 % LAB HEMATOLOGY METHOD 01/16/2025 11:33 AM EDT [facility] Platelet Count 277 155 - 369 10*3/uL LAB HEMATOLOGY METHOD 01/16/2025 11:33 AM EDT [facility] MCV 87 79 - 98 fL LAB HEMATOLOGY METHOD 01/16/2025 11:33 AM EDT [facility] MCH 25.8(L) 26.0 - 32.0 pg LAB HEMATOLOGY METHOD 01/16/2025 11:33 AM EDT [facility] MCHC 29.8(L) 30.7 - 35.5 g/dL LAB HEMATOLOGY METHOD 01/16/2025 11:33 AM EDT [facility] RDW 15.9(H) 11.5 - 14.5 % LAB HEMATOLOGY METHOD 01/16/2025 11:33 AM EDT [facility] MPV 9.6 8.8 - 12.5 fL LAB HEMATOLOGY METHOD 01/16/2025 11:33 AM EDT [facility] nRBC 0.0 <=0.0 per 100 WBCs LAB HEMATOLOGY METHOD 01/16/2025 11:33 AM EDT [facility] Differential Type Automated LAB HEMATOLOGY METHOD 01/16/2025 11:33 AM EDT [facility] Neutrophils % 61 % LAB HEMATOLOGY METHOD 01/16/2025 11:33 AM EDT [facility] Lymphocytes % 28 % LAB HEMATOLOGY METHOD 01/16/2025 11:33 AM EDT [facility] Monocytes % 8 % LAB HEMATOLOGY METHOD 01/16/2025 11:33 AM EDT [facility] Eosinophils % 1 % LAB HEMATOLOGY METHOD 01/16/2025 11:33 AM EDT [facility] Basophils % 1 % LAB HEMATOLOGY METHOD 01/16/2025 11:33 AM EDT [facility] Immature Granulocytes % 1 % LAB HEMATOLOGY METHOD 01/16/2025 11:33 AM EDT [facility] Neutrophils Absolute 3.95 1.60 - 6.10 10*3/uL LAB HEMATOLOGY METHOD 01/16/2025 11:33 AM EDT [facility] Lymphocytes Absolute 1.77 1.20 - 3.90 10*3/uL LAB HEMATOLOGY METHOD 01/16/2025 11:33 AM EDT [facility] Monocytes Absolute 0.50 0.30 - 0.90 10*3/uL LAB HEMATOLOGY METHOD 01/16/2025 11:33 AM EDT [facility] Eosinophils Absolute 0.09 0.00 - 0.50 10*3/uL LAB HEMATOLOGY METHOD 01/16/2025 11:33 AM EDT [facility] Basophils Absolute 0.04 0.00 - 0.10 10*3/uL LAB HEMATOLOGY METHOD 01/16/2025 11:33 AM EDT [facility] Immature Granulocytes Absolute 0.06 0.00 - 0.06 10*3/uL LAB HEMATOLOGY METHOD 01/16/2025 11:33 AM EDT [facility] Blood Venous blood specimen / Unknown Venipuncture / Unknown 01/16/2025 10:15 AM EDT 01/16/2025 10:15 AM EDT [facility] - 01/16/2025 11:33 AM EDT Therapeutic decision making should be based on absolute values, rather than percentages. may Graeme TOP FLAVOR ATTENDANT LAB BLOOD ORDERABLES Final Result [facility] [address] [place] [address] * Rheumatoid Factor, Plasma (01/16/2025 10:15 AM EDT) Rheumatoid Factor, Plasma <10 <14 IU/mL 01/16/2025 1:24 PM EDT [facility] Blood Venous blood specimen / Unknown Venipuncture / Unknown 01/16/2025 10:15 AM EDT 01/16/2025 10:15 AM EDT may R Graeme TOP FLAVOR ATTENDANT LAB BLOOD ORDERABLES Final Result Performing Organization Address City/[facility]/ZIP Co de Phone Number [facility] [address] [place] [address] * C3 Complement (01/16/2025 10:15 AM EDT) C3 Complement 144 84 - 166 mg/dL 01/16/2025 1:19 PM EDT [facility] Blood Venous blood specimen / Unknown Venipuncture / Unknown 01/16/2025 10:15 AM EDT 01/16/2025 10:15 AM EDT us May R Graeme TOP FLAVOR ATTENDANT LAB BLOOD ORDERABLES Final Result Performing Organization Address City/[facility]/ZIP Co de Phone Number [facility] [address] [place] [address] * (ABNORMAL) C4 Complement (01/16/2025 10:15 AM EDT) C4 Complement 37(H) 13 - 36 mg/dL 01/16/2025 1:19 PM EDT [facility] Blood Venous blood specimen / Unknown Venipuncture / Unknown 01/16/2025 10:15 AM EDT 01/16/2025 10:15 AM EDT may Graeme TOP FLAVOR ATTENDANT LAB BLOOD ORDERABLES Final Result Performing Organization Address City/[facility]/ZIP Co de Phone Number [facility] [address] [place] [address] * Antinuclear Antibody (GARRY), HEp-2, IgG (01/16/2025 10:15 AM EDT) GARRY INTERPRETIVE COMMENT See Note 01/18/2025 8:40 AM EDT [facility] ([place]) Anti Nuc Ab Screen <1:80 <1:80 01/18/2025 8:40 AM EDT [facility] ([place]) Blood Venous blood specimen / Unknown Venipuncture / Unknown 01/16/2025 10:15 AM EDT 01/16/2025 10:15 AM EDT Narrative [facility] ([place]) - 01/18/2025 8:40 AM EDT [...] not necessarily rule out SARD. Performed By: [facility] [address] [place] [id number] Communications Operator: El Duarte MD, PhD CLIA Number: [id number] may Graeme TOP FLAVOR ATTENDANT LAB BLOOD ORDERABLES Final Result [facility]) [address] [place] [address] * Thyroid Stimulating Hormone, Plasma (01/16/2025 10:15 AM EDT) Thyroid Stimulating Hormone, Plasma 0.48 0.40 - 4.20 uIU/mL 01/16/2025 1:24 PM EDT [facility] Blood Venous blood specimen / Unknown Venipuncture / Unknown 01/16/2025 10:15 AM EDT 01/16/2025 10:15 AM EDT may R Graeme TOP FLAVOR ATTENDANT LAB BLOOD ORDERABLES Final Result [facility] [address] [place] [address] from Last 3 Months Insurance Care Teams President & Ceo Relationship Specialty Start Date End Date Abby Phillip APRN [address] [place] [address] PCP - General 01/03/25
--- OUTSIDE RECORDS SUMMARY | 2025-01-18 11:59 | XMS_ITS | Encounter Summary ---
Author Organization [employer] ([place], [place] Address [address] [place] [address] Care Team Providers Care Senior Electronics Design Engineer Name Role Phone Santosh Briones MD Primary Care Provider [phone] Santosh Briones MD Primary Care Provider [phone] Julius Cho MD Unavailable Lew Ross MD Unavailable Karlos Pringle PA-C Unavailable [phone] Encounter Details Date Type Department Care Team (Late st Contact Info) Description 12/19/2020 Transcribed Document [facility] Family Medicine [place] [address] ProviderAle MD [address] [place] [address] Social History Tobacco Use Types Packs/Day Years Used Date Smoking Tobacco: Never Assessed Comments Unknown Sex and Gender Information Value Date Recorded Sex Assigned at Female 03/19/2022 10:49 AM [employer]AL [employer] Legal Sex Female 5:46 PM CDT Gender Identity Female 03/19/2022 10:49 AM METAL [employer] Sexual Orientation Not on file documented as [...] activities are safe for you. ??? Take [id number] and prescription medicines only as told by [...] provider. Document Revised: 04/23/2018 Document Reviewed: 12/04/2017 [employer] Patient Education ? 2019 [employer]. documented in this encounter Plan of Treatment Upcoming Encounters Date Type Department Care Team (Late st Contact Info) Description 04/06/2025 9:00 AM EST Office Visit [facility] Cardiology [address] [place] [address] [place] [address] [place] [address] [address] [place] [address] documented as of this encounter Visit Diagnoses Not on filedocumented in this encounter Care Teams Senior Electronics Design Engineer Relationship Specialty Start Date End Date Santosh Briones MD [address] [facility] [address] [place], [place] [id number] PCP - General General Internal Medicine 04/18/22 04/22/22 Santosh Briones MD [address] [place], [place] [id number] PCP - General General Internal Medicine 04/23/22 Julius Cho MD [address] [place] [address] Referring Physician Internal Medicine 04/23/22 Lew Ross MD [address] [facility] [address] [place] [address] Cardiology 08/13/23 Karlos Pringle PA-C [address] [place] [address] Cardiology 11/23/23 documented as of this encounter
--- OUTSIDE RECORDS SUMMARY | 2025-01-18 11:59 | XMS_ITS | Encounter Summary ---
Author Organization [employer] ([place], [place], [place], [place]) Address [address] [place] [address] Care Team Providers Care Commercial Artist Lettering Name Role Phone Santosh Briones MD Primary Care Provider [phone] Santosh Briones MD Primary Care Provider [phone] Julius Cho MD Unavailable Lew Ross MD Unavailable Karlos Pringle PA-C Unavailable [phone] Encounter Details Date Type Department Care Team (Late st Contact Info) Description 12/19/[address] [facility] Family Medicine [facility] [place] [address] ProviderAle MD [address] [place] [address] Social History Tobacco Use Types Packs/Day Years Used Date Smoking Tobacco: Never Assessed Comments Unknown Sex and Gender Information Value Date Recorded Sex Assigned at Female 03/19/2022 10:49 AM ROBOTIC MAINTENANCE TECHNICIAN Legal Sex Female 5:46 PM CDT Gender Identity Female 03/19/2022 10:49 AM ROBOTIC MAINTENANCE TECHNICIAN Sexual Orientation Not on file documented as of this encounter Miscellaneous Notes * Cerner Conversion Note - Historical ProviderMD - 12/19/2020 3:48 PM CDT DATE OF PROCEDURE: 12/19/2020 1965 SURGEON: Massimo Blake DPM STONE POLISHER: None. PREOPERATIVE DIAGNOSES: Right Achilles tendon tear; [...] retracted as necessary. We then placed a [place] drain. We closed up the incision with [...] We will continue to follow this patient. /[id number] Keys YONG Weston/JALEEL / DIONE / MODL /[id number] Electronically signed by Everardo, [facility] Conversion Mail Carriers Supervisor Cerner at 08/22/2022 4:10 PM CDT documented in this encounter Plan of Treatment Upcoming Encounters Date Type Department Care Team (Late st Contact Info) Description 04/06/2025 9:00 AM EST Office Visit [facility] Cardiology [address] [place], [place] [address] Lew Ross MD [address] [place] [address] [address] [place] [address] documented as of this encounter Visit Diagnoses Not on filedocumented in this encounter Care Teams Commercial Artist Lettering Relationship Specialty Start Date End Date Santosh Briones MD [address] [place], [place] [id number] PCP - General General Internal Medicine 04/18/22 04/22/22 Santosh Briones MD [address] [place], [place] [id number] PCP - General General Internal Medicine 04/23/22 Julius Cho MD [address] [address] Referring Physician Internal Medicine 04/23/22 Lew Ross MD [address] [place] [address] [address] [place], [place] [id number] Cardiology 08/13/23 Karlos Pringle PA-C [address] [place] [address], [address] [place] [address] Cardiology 11/23/23 documented as of this encounter
--- OUTSIDE RECORDS SUMMARY | 2025-01-18 11:59 | XMS_ITS | Encounter Summary ---
Author Organization [employer] ([place], [place], [place], [place]) Address [address] [place] [address] Care Team Providers Care Tool Analyst Name Role Phone Santosh Briones MD Primary Care Provider [phone] Santosh Briones MD Primary Care Provider [phone] Julius Cho MD Unavailable Lew Ross MD Unavailable Karlos Pringle PA-C Unavailable [phone] Encounter Details Date Type Department Care Team (Late st Contact Info) Description 12/19/2020 Transcribed Document [facility] Family Medicine [facility] [place] [address] ProviderAle MD [address] [place] [address] Social History Tobacco Use Types Packs/Day Years Used Date Smoking Tobacco: Never Assessed Comments Unknown Sex and Gender Information Value Date Recorded Sex Assigned at Female 03/19/2022 10:49 AM ORACLE EBS ARCHITECT Legal Sex Female 5:46 PM CDT Gender Identity Female 03/19/2022 10:49 AM ORACLE EBS ARCHITECT Sexual Orientation Not on file documented as of this encounter Miscellaneous Notes * Cerner Conversion Note - Historical ProviderMD - 12/19/2020 8:35 AM CDT [facility] Main OR PACU Summary Primary Physician: MEE TUCKER, DPM-POD Finalized Date/Time: 12/21/20 20:53:34 Pt. Name: JANIS FIGUEREDO IBLLIE DumontO.B./Sex: 1965 Female Med Rec #: [id number] Physician: MEE TUCKER DPM-POD Financial #: [id number] Pt. Type: O Room/Bed: /9 Admit/Disch: 12/19/20 06:32:00 - 12/19/20 12:11:00 Institution: [facility] Main OR PACU I Case Times Entry 1 In PACU I 12/19/20 10:25:00 Ready for PACU 12/19/20 11:05:00 Discharge Discharge from PACU 12/19/20 11:08:00 I Last Modified By: Sunshine Rowland RN-PATIENT CARE BEDSIDE NON-EXEMPT 12/19/20 11:55:39 [facility] Main OR PACU Acuity Entry 1 Start Time 12/19/20 11:05:00 Stop Time 12/19/20 11:08:00 Acuity Level [facility] PACU Acuity I Last Modified By: Letitia Dugan, Nurse Clinical Laboratory Aide 12/21/20 20:53:32 [facility] Main OR PACU Acuity Audit 12/21/20 20:53:32 Clinic Clerk: [id number] Modifier: [id number] <*> Start Time 12/19/20 10:25:00 Finalized By: Letitia Dugan, Nurse Sanitation Worker Cleaning Machinery Signatures Signed By: Sunshine Rowland RN-PATIENT CARE BEDSIDE NON-EXEMPT 12/19/20 11:55 Letitia Dugan, Nurse Clinical Laboratory Aide 12/21/20 20:53 Unfinalized History Date/Time Username Reason for Unfinalizing Freetext Reason for Unfinalizing 12/21/20 20:53 [id number] Correct Billing Electronically signed by Everardo [facility] Conversion Configurator Cerner at 08/22/2022 3:52 PM CDT documented in this encounter Plan of Treatment Upcoming Encounters Date Type Department Care Team (Late st Contact Info) Description 04/06/2025 9:00 AM EST Office Visit [facility] Cardiology [address] [place] [address] [place] [address] [place] [address] [facility] [place] [address] documented as of this encounter Visit Diagnoses Not on filedocumented in this encounter Care Teams Tool Analyst Relationship Specialty Start Date End Date Santosh Briones MD [address] [place], [place] [id number] PCP - General General Internal Medicine 04/18/22 04/22/22 Santosh Briones MD [address] [facility] [address] [place], [place] [address] PCP - General General Internal Medicine 04/23/22 Julius Cho MD [address] [address] Referring Physician Internal Medicine 04/23/22 Lew Ross MD [address] [facility] [address] [place], [place] [address] Cardiology 08/13/23 Karlos Pringle PA-C [address] [facility] [address] [place] [address] Cardiology 11/23/23 documented as of this encounter
--- OUTSIDE RECORDS SUMMARY | 2025-01-18 11:59 | XMS_ITS | Encounter Summary ---
Author Organization [employer] ([place], [place], [place], [place]) Address [address] [place] [address] Care Team Providers Care Concrete Pavement Installer Name Role Phone Santosh Briones MD Primary Care Provider [phone] Julius Cho MD Unavailable Lew Ross MD Unavailable Karlos Pringle PA-C Unavailable [phone] Reason for Visit * Reason Onset Date Comments Medication Management 01/10/2025 Encounter Details Date Type Department Care Team (Late st Contact Info) Description 01/10/2025 Telephone [facility] Cardiology [address] [place] [address] Lesly Sanchez, INSULATION MACHINE OPERATOR [address] [place] [address] Medication Management Social History Tobacco [...] a language other than [place]orese at ho mo? No 08/17/2023 Do you want help with [...] Sex Assigned at Female 03/19/2022 10:49 AM DIGITAL PERFORMANCE ANALYST Legal Sex Female 5:46 PM CDT Gender Identity Female 03/19/2022 10:49 AM DIGITAL PERFORMANCE ANALYST Sexual Orientation Not on file documented [...] can get the mounjaro instead. Please call [phone] documented in this encounter Plan of Treatment Upcoming Encounters Date Type Department Care Team (Late st Contact Info) Description 04/06/2025 9:00 AM EST Office Visit [facility] Cardiology [address] [place] [address] Lew Ross MD [address] [place] [address] [place] [address] documented as of this encounter Visit Diagnoses Not on filedocumented in this encounter Care Teams Concrete Pavement Installer Relationship Specialty Start Date End Date Santosh Briones MD [address] [facility] [place] [address] PCP - General General Internal Medicine 04/23/22 Julius Cho MD [address] [place] [address] Referring Physician Internal Medicine 04/23/22 Lew Ross MD [address] [place] [address] [place] [address] Cardiology 08/13/23 Karlos Pringle PA-C [address] [facility] [address] [place] [address] Cardiology 11/23/23 documented as of this encounter
--- OUTSIDE RECORDS SUMMARY | 2025-01-18 12:00 | XMS_ITS | Encounter Summary ---
Author Organization [employer] ([place], [place], [place], [place]) Address [address] [place] [address] Care Team Providers Care Striper Machine Name Role Phone Santosh Briones MD Primary Care Provider [phone] Julius Cho MD Unavailable Lew Ross MD Unavailable Karlos Pringle PA-C Unavailable [phone] Encounter Details Date Type Department Care Team [...] Do you speak a language other than Tanzanian at [facility]? No 08/17/2023 Do you want help [...] Sex Assigned at Female 03/19/2022 10:49 AM WELDER METAL FAB Legal Sex Female 5:46 PM CDT Gender Identity Female 03/19/2022 10:49 AM WELDER METAL FAB Sexual Orientation Not on file documented as of this encounter Plan of Treatment Upcoming Encounters Date Type Department Care Team (Late st Contact Info) Description 04/06/2025 9:00 AM EST Office Visit [facility] Cardiology [address] [place] [address] Lew Ross MD [address] [facility] [address] [place] [address] documented as of this encounter Visit Diagnoses Not on filedocumented in this encounter Care Teams Striper Machine Relationship Specialty Start Date End Date Santosh Briones MD [address] [place] [address] PCP - General General Internal Medicine 04/23/22 Julius Cho MD [address] [place] [address] Referring Physician Internal Medicine 04/23/22 Lew Ross MD [address] [facility] [address] [place] [address] Cardiology 08/13/23 Karlos Pringle PA-C [address] [facility] [place] [address] Cardiology 11/23/23 documented as of this encounter
--- OUTSIDE RECORDS SUMMARY | 2025-01-18 12:00 | XMS_ITS | Encounter Summary ---
Author Organization [employer] ([place], [place], [place], [place]) Address [address] [address] Care Team Providers Care Pelletizer Operator Name Role Phone Santosh Briones MD Primary Care Provider [phone] Santosh Briones MD Primary Care Provider [phone] Julius Cho MD Unavailable Lew Ross MD Unavailable Karlos Pringle PA-C Unavailable [phone] Encounter Details Date Type Department Care Team (Late st Contact Info) Description 12/14/2020 Transcribed Document [facility] Family Medicine [facility] [place] [address] ProviderAle MD [address] [place] [address] Social History Tobacco Use Types Packs/Day Years Used Date Smoking Tobacco: Never Assessed Comments Unknown Sex and Gender Information Value Date Recorded Sex Assigned at Female 03/19/2022 10:49 AM SCREENING REPRESENTATIVE Legal Sex Female 5:46 PM CDT Gender Identity Female 03/19/2022 10:49 AM SCREENING REPRESENTATIVE Sexual Orientation Not on file documented [...] Source : Measured Height Entry Format : [place] Height, Feet : 5 ft(Converted to: 152 cm, 60 Inch) Height, Inches : 7 Inch(Converted to: 0 ft 7 Inch, 17.78 cm) Clinical Height : 170.18 cm Weight Source : Standing scale Weight Entry Format : [place] Clinical Dosing Weight : 116.82 kg Weight, Pounds : 257 lb Body Surface Area (BSA) : 2.25 m2 Body Mass Index : 40.3 kg/m2 (>HHI) [place] Body Weight : 61 kg PETROS HERNDON RN - 12/17/2020 10:31 EDT Health Histories Smoking Status : Never (less than 100 in lifetime; none in last 30 days) Smokeless Tobacco Status : Never Implant/Device Type, Fuel Quality Tech and Model : breast implants IVC filter [...] Tru Barkley Rn - 12/14/2020 10:55 EDT [place] Suicide Severity Rating Scale (C-SSRS) CSSRS Past [...] Info Legal Guardian : Spouse Support Person/Patient Construction Scheduler : Yes Support Person/Pt Rep Name : Jose Ramon Lorenzana - Support Person/Pt Rep Contact Information : [phone] Want Family/Rep/Phys Notified of Admit : No Tru Barkley Rn - 12/14/2020 10:55 EDT Emergency Contact #1 : Jose Ramon Lorenzana Emergency Contact #1 Emergency Contact #1 Relationship : Roberto Gilalissa Black Rn - 12/19/2020 6:14 EDT Emergency Contact #2 : ` Emergency Contact #2 Phone Number : ` Emergency Contact #2 Relationship : ` Information Obtained From : Patient Primary Language : [place]ayan Communication Barrier : None Chrome Polisher Needed : No Tru Barkley Rn - [...] Description 04/06/2025 9:00 AM EST Office Visit [facility] Cardiology [address] [place] [id number] [place] [address] [place] [address] [address] [place], [place] [address] documented as of this encounter Visit Diagnoses Not on filedocumented in this encounter Care Teams Pelletizer Operator Relationship Specialty Start Date End Date Santosh Briones MD [address] [place], [place] [address] PCP - General General Internal Medicine 04/18/22 04/22/22 Santosh Briones MD [address] [place], [place] [address] PCP - General General Internal Medicine 04/23/22 Julius Cho MD [address] [place] [address] Referring Physician Internal Medicine 04/23/22 Lew Ross MD 14[address] [facility] [address] [id number] Cardiology 08/13/23 Karlos Pringle PA-C [address] [facility], [facility] [address] [place] [address] Cardiology 11/23/23 documented as of this encounter
--- OUTSIDE RECORDS SUMMARY | 2025-01-18 12:00 | XMS_ITS | Encounter Summary ---
Author Organization [employer] ([place], [place], [place], [place]) Address [address] [place] [address] Care Team Providers Care Bowling Alley Manager Name Role Phone Santosh Briones MD Primary Care Provider [phone] Santosh Briones MD Primary Care Provider [phone] Julius Cho MD Unavailable Lew Ross MD Unavailable Karlos Pringle PA-C Unavailable [phone] Encounter Details Date Type Department Care Team (Late st Contact Info) Description 12/19/2020 Transcribed Document [facility] Family [place] [address] ProviderAle MD [address] [place] [address] Social History Tobacco Use Types Packs/Day Years Used Date Smoking Tobacco: Never Assessed Comments Unknown Sex and Gender Information Value Date Recorded Sex Assigned at Female 03/19/2022 10:49 AM TEACHER DRAMA Legal Sex Female 5:46 PM CDT Gender Identity Female 03/19/2022 10:49 AM TEACHER DRAMA Sexual Orientation Not on file documented as of this encounter Miscellaneous Notes * [employer]ner Conversion Note - Historical ProviderMD - 12/19/2020 7:30 AM CDT [facility] Main OR Preop Summary Primary Physician: MEE TUCKER, DPM-POD Finalized Date/Time: 12/19/20 07:52:13 Pt. Name: JANIS FIGUEREDO BILLIE /Sex: 1965 Female Med Rec #: [id number] Physician: MEE TUCKER DPM-POD Financial #: [id number] Pt. Type: O Room/Bed: /9 Admit/Disch: 12/19/20 06:32:00 - Institution: [facility] PreOp Case Times Entry 1 In Preop 12/19/20 05:50:00 Ready for Holding n/a Room Patient Ready for 12/19/20 07:48:00 Surgery Patient Out of Preop 12/19/20 07:52:00 Patient Out of n/a Holding Room Last Modified By: Pérez Gil Rn 12/19/20 07:52:11 [facility] PreOp Case Times Audit 12/19/20 07:52:11 Fruit I Farmworker: [id number] Modifier: [id number] <+> 1 Patient Out of Preop <+> 1 Patient Ready for Surgery Finalized By: Pérez Gil, Rn Document Signatures Signed By: Pérez Gil Rn 12/19/20 07:52 Electronically signed by Everardo [facility] Conversion Senior Market Research Analyst Cerner at 08/22/2022 3:49 PM CDT documented in this encounter Plan of Treatment Upcoming Encounters Date Type Department Care Team (Late st Contact Info) Description 04/06/2025 9:00 AM EST Office Visit [facility] Cardiology [address] [place] [address] Lew Ross MD [address] [place] [address] [address] [place] [address] documented as of this encounter Visit Diagnoses Not on filedocumented in this encounter Care Teams Bowling Alley Manager Relationship Specialty Start Date End Date Santosh Briones MD [address] [place] [address] PCP - General General Internal Medicine 04/18/22 04/22/22 Santosh Briones MD [address] [facility] [place] [address] PCP - General General Internal Medicine 04/23/22 Julius Cho MD [address] [place] [address] Referring Physician Internal Medicine 04/23/22 Lew Ross MD 14[address] [facility] [address] [place] [address] Cardiology 08/13/23 Karlos Pringle PA-C [address] [place] [address], [facility] [address] [place] [address] Cardiology 11/23/23 documented as of this encounter
--- OUTSIDE RECORDS SUMMARY | 2025-01-18 12:00 | XMS_ITS | Encounter Summary ---
Author Organization [employer] ([place], [place], [place], [place]) Address [address] [place] [address] Care Team Providers Care Riding Silks Custodian Name Role Phone Santosh Briones MD Primary Care Provider [phone] Julius Cho MD Unavailable Lew Ross MD Unavailable Karlos Pringle PA-C Unavailable [phone] Reason for Visit * Reason Onset Date Comments Medication Management 12/30/2024 PA for Weg ovy 0.5MG/0.5ML auto-injectors Encounter Details Date Type Department Care Team (Late st Contact Info) Description 12/30/2024 Documentation [facility] Cardiology [address] [place] [address] Dee Estevez Social History Tobacco [...] Do you speak a language other than [place] [facility] at [facility]? No 08/17/2023 Do you want help [...] Sex Assigned at Female 03/19/2022 10:49 AM CLINICAL TRIALS SYSTEMS ADMINISTRATOR Legal Sex Female 5:46 PM CDT Gender Identity Female 03/19/2022 10:49 AM CLINICAL TRIALS SYSTEMS ADMINISTRATOR Sexual Orientation Not on file documented as of this encounter Progress Notes * Dee Estevez - 12/30/2024 4:21 PM EDT PA for Wegovy 0.5MG/0.5ML auto-injectors Status: Waiting for Appeal Sales:[id number] documented in this encounter Plan of Treatment Upcoming Encounters Date Type Department Care Team (Late st Contact Info) Description 04/06/2025 9:00 AM EST Office Visit [facility] Cardiology [address] [place] [phone] [place] [address] [place] [address] [id number] documented as of this encounter Visit Diagnoses Not on filedocumented in this encounter Care Teams Riding Silks Custodian Relationship Specialty Start Date End Date Santosh Briones MD [address] [place] [address] PCP - General General Internal Medicine 04/23/22 Julius Cho MD [address] [place] [address] Referring Physician Internal Medicine 04/23/22 Lew Ross MD [address] [place] [address] [address] Cardiology 08/13/23 Karlos Pringle PA-C [address] [place] [address] [address], [address] [place] [address] Cardiology 11/23/23 documented as of this encounter
--- OUTSIDE RECORDS SUMMARY | 2025-01-18 12:00 | XMS_ITS | Patient Health Record ---
Author Organization [id number] [facility] Address [address] [facility] [address] [facility] [address] [place], [place] [id number] Care Team Providers Care Operating Room Orderly Name Role Phone NI SANTOS Primary Care [...] Coverage Start Date Coverage End Date [employer] OAP/182 223 [address] [place], [place] [id number] [phone] [id number] Janis Lorenzana Self - patient is the [...]
--- OUTSIDE RECORDS SUMMARY | 2025-01-18 12:00 | XMS_ITS | Clinical Summary ---
Author Organization [facility] Address [address] [place] [address] Care Team Providers Care Analytics Architect Name Role Phone Santosh Briones MD Primary Care Provider [phone] Social History Tobacco Use Types Packs/Day Years [...] 01/2023 Potentially Unsafe Housing Conditions Not on erx e 02/09/2023 Family and Community Support Answer [...] Payer (Ef fective 2024-Present) Name:Janis Lorenzana Member ID:[id number] Relation to Subscriber:Self Name:Christie Lorenzanalissette Suero Subscriber ID:[id number] Payer ID:[id number] Group ID:Not on file Type:Not on file Address: [address] MEDICARE ADVANTAGE HMO NON PAR Care Teams Analytics Architect Relationship Specialty Start Date End Date Santosh Briones MD PCP - General Internal Medicine 02/27/22
--- OUTSIDE RECORDS SUMMARY | 2025-01-18 12:00 | XMS_ITS | Encounter Summary ---
Author Organization [employer] ([place], [place], [place], [place]) Address [address] [place] [address] Care Team Providers Care Departmental Buyer Name Role Phone Santosh Briones MD Primary Care Provider [phone] Julius Cho MD Unavailable Lew Ross MD Unavailable Karlos Pringle PA-C Unavailable [phone] Reason for Visit * Reason Onset Date Comments Medication Management 01/03/2025 Encounter Details Date Type Department Care Team (Late st Contact Info) Description 01/03/2025 Telephone [facility] Cardiology [address] [place] [address] Lesly Sanchez, PRECISION STRUCTURAL METAL FITTER [address] [place] [address] Medication Management Social History Tobacco [...] Do you speak a language other than Wallisian at [facility]? No 08/17/2023 Do you want [...] Sex Assigned at Female 03/19/2022 10:49 AM CONTACT LENS FITTER Legal Sex Female 5:46 PM CDT Gender Identity Female 03/19/2022 10:49 AM CONTACT LENS FITTER Sexual Orientation Not on file documented [...] appeal throughon denial Please contact Valeria at [phone] documented in this encounter Plan of Treatment Upcoming Encounters Date Type Department Care Team (Late st Contact Info) Description 04/06/2025 9:00 AM EST Office Visit [facility] Cardiology [address] [place] [address] Lew Ross MD [address] [place] [address] [place] [address] documented as of this encounter Visit Diagnoses Not on filedocumented in this encounter Care Teams Departmental Buyer Relationship Specialty Start Date End Date Santosh Brinoes MD [address] [facility] [address] PCP - General General Internal Medicine 04/23/22 Julius Cho MD [address] [place] [address] Referring Physician Internal Medicine 04/23/22 Lew Ross MD [address] [place] [address] [place] [address] Cardiology 08/13/23 Karlos Pringle PA-C [address] , [facility] [address] [place] [address] Cardiology 11/23/23 documented as of this encounter
--- OUTSIDE RECORDS SUMMARY | 2025-01-18 12:00 | XMS_ITS | Clinical Summary ---
Author Organization [employer] ([place], [place], [place], [place]) Address [address] [place] [address] Care Team Providers Care Photo Lab Manager Name Role Phone Santosh Briones MD Primary Care Provider [phone] Julius Coh MD Unavailable Lew Ross MD Unavailable Karlos Pringle PA-C Unavailable [phone] Allergies Active Allergy Reactions Criticality Noted Date [...] Type Department Care Team Description 01/10/2025 Telephone [facility] Cardiology [address] [place], [place] [phone] Lesly Sanchez, DAYCARE PROVIDER Medication Management 01/10/2025 Telephone [facility] Cardiology [address] [place] [phone] Lesly Sanchez, DAYCARE PROVIDER Advice Only 01/03/2025 Telephone [facility] Cardiology [address] [place] [phone] Lesly Sanchez, DAYCARE PROVIDER Medication Management 12/30/2024 9:30 AM EDT Office Visit [facility] Cardiology [address] [place] [phone] Lesly Sanchez, DAYCARE PROVIDER Coronary artery disease 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 (Primary Dx); Morbid obesity (HCC); ADONIS (obstructive sleep apnea) by history; Stasis, venous; Primary hypertension; Mixed hyperlipidemia; Lymphedema; Pre-operative cardiovascular examination 12/30/2024 Documentation [facility] Cardiology [address] [place] [phone] Dee Estevez 12/30/2024 Travel from Last 3 [...] Sex Assigned at Female 03/19/2022 10:49 AM SOCIAL ECONOMIST Legal Sex Female 5:46 PM CDT Gender Identity Female 03/19/2022 10:49 AM SOCIAL ECONOMIST Sexual Orientation Not on file Last Filed [...] Description 04/06/2025 9:00 AM EST Office Visit [facility] Cardiology [address] [place] [phone] [place] [address] [place] [address] [address] [place] [address] Health Maintenance Due Date Last Done Comments [...] Completed 01/28/2024 Medical Devices Implanted Type Area Supervisor Belt And Link Assembly Device Identifier Shelf Expiration Date Model / Serial / Lot Base Tib 18mm [id number] - [id number] Implanted:Qty : 1 on 04/23/2022 by Massimo Blake DPM at [facility] IMPLANTS Left: Ankle ARIAS MED GRP:ARIAS MED TECH 03/13/[id number] / / [id number] Stem Mid Tib 16mm [id number] - [id number] Implanted:Qty : 2 on 04/23/2022 by Massimo Blake DPM at [facility] IMPLANTS Left: Ankle ARIAS MED GRP:ARIAS MED TECH 03/10/2030 / / [id number] Stem Top Tib 16mm [id number] - [id number] Implanted:Qty : 1 on 04/23/2022 by Massimo Blake DPM at [facility] IMPLANTS Left: Ankle ARIAS MED GRP:ARIAS MED TECH 05/20/[id number] / / [id number] Cement Bone Smplx Tobra [facility] 6197-9-001 - [id number] Implanted:Qty : 3 on 04/23/2022 by Massimo Blake, DPM at [facility] IMPLANTS Left: Ankle GIUSEPPE:GIUSEPPE ORTHOPAEDICS 08/02/2023 6197-9-001 / / [id number] Tray Tib Sz4 L [id number] - [id number] Implanted:Qty : 1 on 04/23/2022 by Massimo Blake, DPM at [facility] IMPLANTS Left: Ankle ARIAS MED GRP:ARIAS MED TECH 02/20/[id number] / / [id number] Dome Inbone Talar Sulcus Sz 3 - [id number] Implanted:Qty : 1 on 04/23/2022 by Massimo Blake, DPM at [facility] IMPLANTS Left: Ankle ARIAS MED GRP:ARIAS MED TECH 10/31/2028 / / [id number] Insrt Crosslnk Poly Sz3 [id number] - [id number] Implanted:Qty : 1 on 04/23/2022 by Massimo Blake, DPM at [facility] IMPLANTS Left: Ankle ARIAS MED GRP:ARIAS MED TECH 02/17/[id number] / / [id number] Stem Talar 10mm [id number] - [id number] Implanted:Qty : 1 on 04/23/2022 by Massimo Blake, DPM at [facility] IMPLANTS Left: Ankle ARIAS MED GRP:ARIAS MED TECH 02/16/[id number] / / [id number] Bone Putty Stimulan 5cc 620-005 - [id number] Implanted:Qty : 1 on 08/18/2023 by Massimo Blake, DPM at [facility] IMPLANTS Left: Ankle BIOCOMPOSITES 03/03/2026 620-005 / / [id number] Insurance [facility] [place] [address] Advance Directives For more information, please contact: [phone] * Full Code (Latest Code Status on [...] 5:35 PM 08/18/2023 5:58 PM Care Teams Photo Lab Manager Relationship Specialty Start Date End Date Santosh Briones MD [address] [place] [address] PCP - General General Internal Medicine 04/23/22 Julius Cho MD [address] [place] [address] Referring Physician Internal Medicine 04/23/22 Lew Ross MD [address] [facility] [address] [place] [address] Cardiology 08/13/23 Karlos Pringle PA-C [address] [facility] [place] [address] Cardiology 11/23/23
--- OUTSIDE RECORDS SUMMARY | 2025-01-18 12:00 | XMS_ITS | Encounter Summary ---
Author Organization [employer] ([place], [place], [place], [place]) Address [address] [place] [address] Care Team Providers Care Developer Trading Systems Name Role Phone Santosh Briones MD Primary Care Provider [phone] Santosh Briones MD Primary Care Provider [phone] Julius Cho MD Unavailable Lew Ross MD Unavailable Karlos Pringle PA-C Unavailable [phone] Encounter Details Date Type Department Care Team (Late st Contact Info) Description 12/19/2020 Transcribed Document [facility] Family Medicine [facility] [place] [address] ProviderAle MD [address] [place] [address] Social History Tobacco Use Types Packs/Day Years Used Date Smoking Tobacco: Never Assessed Comments Unknown Sex and Gender Information Value Date Recorded Sex Assigned at Female 03/19/2022 10:49 AM COFOUNDER Legal Sex Female 5:46 PM CDT Gender Identity Female 03/19/2022 10:49 AM COFOUNDER Sexual Orientation Not on file documented as of this encounter Miscellaneous Notes * Cerner Conversion Note - Historical ProviderMD - 12/19/2020 8:35 AM CDT [facility] Main OR PostOp Summary Primary Physician: MEE TUCKER, DPM-POD Finalized Date/Time: 12/19/20 12:16:40 Pt. Name: JANIS FIGUEREDO BILLIE /Sex: 1965 Female Med Rec #: [id number] Physician: MEE TUCKER DPM-POD Financial #: [id number] Pt. Type: O Room/Bed: /9 Admit/Disch: 12/19/20 06:32:00 - Institution: [facility] Main OR PostOp Case Times Entry 1 In PACU II 12/19/20 11:10:00 Ready for PACU II 12/19/20 12:11:00 Discharge Discharge from PACU 12/19/20 12:11:00 II Last Modified By: SIOMARA ALLEN RN 12/19/20 12:16:39 [facility] Main OR PostOp Case Times Audit 12/19/20 12:16:39 Heavy Equipment Mechanic: [id number] Modifier: [id number] <+> 1 Ready for PACU II Discharge <+> 1 Discharge from PACU II Finalized By: SIOMARA ALLEN RN Document Signatures Signed By: SIOMARA ALLEN RN 12/19/20 12:16 Electronically signed by [facility] Conversion Cut Off Saw Set Up Operator Cerner at 08/22/2022 3:51 PM CDT documented in this encounter Plan of Treatment Upcoming Encounters Date Type Department Care Team (Late st Contact Info) Description 04/06/2025 9:00 AM EST Office Visit [facility] Cardiology [address] [place] [phone] Lew Ross MD [address] [place] [address] [address] [place] [address] documented as of this encounter Visit Diagnoses Not on filedocumented in this encounter Care Teams Developer Trading Systems Relationship Specialty Start Date End Date Santosh Briones MD [address] [facility] [place] [address] PCP - General General Internal Medicine 04/18/22 04/22/22 Santosh Briones MD [address] [facility] [place] [address] PCP - General General Internal Medicine 04/23/22 Julius Cho MD [address] [place] [address] Referring Physician Internal Medicine 04/23/22 Lew Ross MD [address] [facility] [address] [place] [address] Cardiology 08/13/23 Karlos Pringle PA-C [address] [place] [address] Cardiology 11/23/23 documented as of this encounter
--- OUTSIDE RECORDS SUMMARY | 2025-01-18 12:00 | XMS_ITS | Encounter Summary ---
Author Organization [employer] ([place], [place], [place], [place]) Address [address] [place] [address] Care Team Providers Care Ink Technician Name Role Phone Santosh Briones MD Primary Care Provider Satnosh Briones MD Primary Care Provider [phone] Julius Cho MD Unavailable Lew Ross MD Unavailable Karlos Pringle PA-C Unavailable Encounter Details Date Type Department Care Team (Late st Contact Info) Description 12/19/2020 Transcribed Document [facility] [place] [facility] [place] [address] ProviderAle MD [address] [place] [address] Social History Tobacco Use Types Packs/Day Years Used Date Smoking Tobacco: Never Assessed Comments Unknown Sex and Gender Information Value Date Recorded Sex Assigned at Female 03/19/2022 10:49 AM BELL SPINNER Legal Sex Female 5:46 PM CDT Gender Identity Female 03/19/2022 10:49 AM BELL SPINNER Sexual Orientation Not on file documented as [...] - 12/19/2020 7:49 EDT Electronically signed by [facility] Conversion Truck Driving Instructor Cerner at 08/22/2022 3:50 PM CDT documented in this encounter Plan of Treatment Upcoming Encounters Date Type Department Care Team (Late st Contact Info) Description 04/06/2025 9:00 AM EST Office Visit [facility] Cardiology [address] [place], [place] [phone] [place] [address] [place] [address] [address] [place] [address] documented as of this encounter Visit Diagnoses Not on filedocumented in this encounter Care Teams Ink Technician Relationship Specialty Start Date End Date Santosh Briones MD [address] [place] [address] PCP - General General Internal Medicine 04/18/22 04/22/22 Santosh Briones MD [address] [facility] [place] [address] PCP - General General Internal Medicine 04/23/22 Julius Cho MD [address] [place] [address] Referring Physician Internal Medicine 04/23/22 Lew Ross MD [address] [facility] [address] [place] [address] Cardiology 08/13/23 Karlos Pringle PA-C [address], [facility] [address] [place] [address] Cardiology 11/23/23 documented as of this encounter
--- OUTSIDE RECORDS SUMMARY | 2025-01-18 12:00 | XMS_ITS | Referral Summary ---
Author Organization [employer] ([place], [place], [place], [place]) Address [address] [place] [address] Care Team Providers Care Yard Attendant Name Role Phone Santosh Briones MD Primary Care Provider [phone] Julius Cho MD Unavailable Lew Ross MD Unavailable Karlos Pringle PA-C Unavailable [phone] Encounters Date Type Department Care Team Description 01/10/2025 Telephone [facility] Cardiology [address] [place] [phone] Lesly Sanchez, SOLAR POOL HEATING INSTALLER Medication Management 01/10/2025 Telephone [facility] Cardiology [address] [place] [phone] Lesly Sanchez, SOLAR POOL HEATING INSTALLER Advice Only 01/03/2025 Telephone [facility] Cardiology [address] [place] [phone] Lesly Sanchez, SOLAR POOL HEATING INSTALLER Medication Management 12/30/2024 Documentation [facility] Cardiology [address] [place] [phone] Dee Estevez 12/30/2024 Travel 12/30/2024 9:30 AM EDT Office Visit [facility] Cardiology [address] [place] [phone] LauraLesly, SOLAR POOL HEATING INSTALLER Coronary artery disease involving ely shoshone coronary artery of ely shoshone heart without angina pectoris (Primary Dx); Morbid [...] Do you speak a language other than Telugu at [facility]? No 08/17/2023 Do you want help with [...] Sex Assigned at Female 03/19/2022 10:49 AM QUICK PRINT OPERATOR Legal Sex Female 5:46 PM CDT Gender Identity Female 03/19/2022 10:49 AM QUICK PRINT OPERATOR Sexual Orientation Not on file Last [...] Description 04/06/2025 9:00 AM EST Office Visit [facility] Cardiology [address] [place] [address] Lew Ross MD [address] [place] [address] [address] [place] [address] Medical Devices Implanted Type Area Artist Mannequin Coloring Device Identifier Shelf Expiration Date Model / Serial / Lot Base Tib 18mm [id number] - [id number] Implanted:Qty : 1 on 04/23/2022 by Massimo Blake DPM at [facility] IMPLANTS Left: Ankle ARIAS MED GRP:ARIAS MED TECH 03/13/[id number] / / [id number] Stem Mid Tib 16mm [id number] - [id number] Implanted:Qty : 2 on 04/23/2022 by Massimo Blake DPM at [facility] IMPLANTS Left: Ankle ARIAS MED GRP:ARIAS MED TECH 03/10/[id number] / / [id number] Stem Top Tib 16mm [id number] - [id number] Implanted:Qty : 1 on 04/23/2022 by Massimo Blake, DPM at [facility] IMPLANTS Left: Ankle ARIAS MED GRP:ARIAS MED TECH 05/20/[id number] / / [id number] Cement Bone Smplx Tobra 40gm 6197-9-001 - [id number] Implanted:Qty : 3 on 04/23/2022 by Massimo Blake, DPM at [facility] IMPLANTS Left: Ankle GIUSEPPE:GIUSEPPE ORTHOPAEDICS 08/02/2023 6197-9-001 / / [id number] Tray Tib Sz4 L [id number] - [id number] Implanted:Qty : 1 on 04/23/2022 by Massimo Blake, DPM at [facility] IMPLANTS Left: Ankle ARIAS MED GRP:ARIAS MED TECH 02/20/[id number] / / [id number] Dome Inbone Talar Sulcus Sz 3 - [id number] Implanted:Qty : 1 on 04/23/2022 by Massimo Blake, SHAHRAMM at [facility] IMPLANTS Left: Ankle ARIAS MED GRP:ARIAS MED TECH 10/31/2028-3 / / [id number] Insrt Crosslnk Poly Sz3 [id number] - [id number] Implanted:Qty : 1 on 04/23/2022 by Massimo Blake, DPM at [facility] IMPLANTS Left: Ankle ARIAS MED GRP:ARIAS MED TECH 02/17/2030 [id number] / / [id number] Stem Talar 10mm [id number] - [id number] Implanted:Qty : 1 on 04/23/2022 by Massimo Blake, DPM at [facility] IMPLANTS Left: Ankle ARIAS MED GRP:ARIAS MED TECH 02/16/[id number] / / [id number] Bone Putty Stimulan 5cc 620-005 - [id number] Implanted:Qty : 1 on 08/18/2023 by Massimo Blake, DPM at [facility] IMPLANTS Left: Ankle BIOCOMPOSITES 03/03/2026 620-005 / / [id number] Insurance [facility] [place] [address] Advance Directives For more information, please contact: [phone] * Full Code (Latest Code Status on [...] 5:35 PM 08/18/2023 5:58 PM Care Teams Yard Attendant Relationship Specialty Start Date End Date Santosh Briones MD [address] [place] [address] [place] [address] PCP - General General Internal Medicine 04/23/22 Julius Cho MD [address] [place] [address] Referring Physician Internal Medicine 04/23/22 Lew Ross MD [address] [place] [address] [address] Cardiology 08/13/23 Karlos Pringle PA-C [address] , [facility] [[email or web address] [address] [place] [address] Cardiology 11/23/23
[2025-01-18 12:15] VITALS: BP 148/73; PULSE 65; RESP 18
[2025-01-18] MEDS: ferumoxytoL 510 MG in 0.9 % SODIUM CHLORIDE 50 ML 268 MG IV (12:15)
[2025-01-18 12:30] VITALS: BP 145/74; PULSE 57; RESP 17
== END 2025-01-18 12:43 | disposition home or self-care (01) ==
LOC: INF 11:56
PROVIDERS: PCP Nurse Practitioner Family; Visit Provider Internal Medicine Medical Oncology
DX: I82.409 Acute embolism and thrombosis of unspecified deep veins of unspecified lower extremity (principal); D64.9 Anemia, unspecified
CPT/HCPCS: 96374; Q0138

== ENCOUNTER 2025-02-08 10:25 | Outpatient (CLI) | payer MEDICARE, SELFPAY ==
[2025-02-08 17:19] LABS: Hematocrit 39.2 % (37.0-47.0); Hemoglobin 11.8 g/dL (12.2-16.2); Immature Granulocytes % 0.2 %; Mean Corpuscular HGB Conc 30.1 g/dL (31.8-35.4); Mean Corpuscular Hemoglobin 27.4 pg (27.0-31.2); Mean Corpuscular Volume 91.2 fl (81-99); Nucleated Red Blood Cells % 0 %; Platelet Count 244 K/mm3 (142-424); Red Blood Count 4.30 M/mm3 (4.20-5.40); Red Cell Distribution Width-SD 57.9 fL; White Blood Count 5.1 K/mm3 (4.8-10.8)
[2025-02-08 18:43] LABS: Ferritin 101 ng/ml (11.1-264)
== END 2025-02-08 23:59 ==
LOC: LAB.DROPOF 02-10 00:28
PROVIDERS: PCP Nurse Practitioner Family; Visit Provider Nurse Practitioner Family
DX: D64.9 Anemia, unspecified (principal)
CPT/HCPCS: 82728; 85025

== ENCOUNTER 2025-02-24 14:22 | Day surgery (SDC) | payer MEDICARE, SELFPAY ==
[2025-02-24 14:30] VITALS: BP 120/88; PULSE 90; RESP 16; O2SAT 100; BMI 45.4
[2025-02-24] MEDS: DEXAMETHASONE 10MG/ML 1ML VIAL 10 MG (15:32)
[2025-02-24] MEDS: LIDOCAINE 1% 5ML PF VIAL 10 ML (15:32)
[2025-02-24] MEDS: BUPIVACAINE 0.25% 10ML INJ 25 MG IJ (15:32)
[2025-02-24 15:33] VITALS: BP 170/90; PULSE 96; RESP 18; O2SAT 96
[2025-02-24 15:34] VITALS: BP 170/90; PULSE 96; RESP 18; O2SAT 96
--- NOTE | 2025-02-24 15:37 | EXP.HP ---
History of Present Illness *Admission Date: 02/24/25 *Reason for visit:: Left Hip Pain Sacroillitis and Troch Bursitis *History of present illness: This patient is present for a left SI joint injection with trochanteric bursa injection. [facility] Disclaimer: The information contained in this section may have been updated after the patient was seen, as this information can be updated by other users. Medical History CAD (coronary artery disease) Encounter for pre-operative examination Encounter for routine gynecological examination Heart attack Hx of deep venous thrombosis Hyperlipidemia Lumbar radiculopathy Nerve damage of left foot Obesity Osteoarthritis Osteoporosis Post-menopausal bleeding Surgical History H/O breast augmentation H/O gastric bypass H/O hernia repair H/O total ankle replacement S/P cholecystectomy Family History Father Diabetes Coronary artery disease Brother Diabetes Family/Other Blood clot in vein Blood disease Social History (Updated 02/24/25 @ 12:52 by Eric Harper) Smoking Status: Never smoker second hand exposure: No (previously) alcohol intake: never substance use type: denies use current occupational status: disabled Travel in the last 8 weeks?: None Have you lived/traveled outside US in past 30 days?: No Contact w/someone who lives/traveled outside US past 30 days?: No Exposure to someone with infectious disease in past 14 days?: No Do you have a fever (greater than 100.4 F or 38 C)?: No Have you tested positive for COVID-19?: No Exposed to someone with COVID-19 in past 14 days?: No Do you have a sore throat?: No Do you have a cough?: No Do you have any weakness?: No Do you have any diarrhea?: No Are you experiencing any unusual bleeding?: No Do you have any muscle aches/pain?: No Do you have any abdominal pain?: No Are you experiencing loss of taste or smell?: No Other Medical History Have you received the Flu Vaccine for this season: No Have you received the Pneumonia Vaccine: No Review of Systems Review of Systems Review of systems:: pertinent systems reviewed and negative unless documented below Meds Home Medications and Allergies Home Medications ?Medication ?Instructions ?Recorded ?Confirmed ?Type acetaminophen 650 mg 1,300 mg PO TID 10/12/24 02/24/25 History tablet,extended release aspirin 81 mg tablet 81 mg PO DAILY 10/12/24 02/24/25 History cholecalciferol (vitamin D3) 125 125 mcg PO DAILY 10/12/24 02/24/25 History mcg (5,000 unit) capsule folic acid 1 mg tablet 1 mg PO DAILY 10/12/24 02/24/25 History minocycline 100 mg capsule 100 mg PO DAILY 10/12/24 02/24/25 History ferumoxytol 510 mg/17 mL (30 510 mg (17 mL) IV Q3D 2 doses 12/14/24 02/24/25 Rx mg/mL) intravenous solution (Feraheme) polysaccharide iron complex 180 mg 180 mg PO DAILY #30 caps 12/16/24 02/24/25 Rx iron capsule (Pro Fe) sodium,potassium,mag sulfates 17.5 See Rx Instructions PO .COMPLEX 12/21/24 02/24/25 Rx gram-3.13 gram-1.6 gram oral soln #354 mL (Suprep Bowel Prep Kit) enoxaparin 120 mg/0.8 mL 120 mg SQ BID 01/03/25 02/24/25 History subcutaneous syringe apixaban 5 mg tablet (Eliquis) 5 mg PO BID 90 days #180 tabs 01/10/25 02/24/25 Rx duloxetine 30 mg capsule,delayed 30 mg PO DAILY #90 caps 01/10/25 02/24/25 Rx release ibandronate 150 mg tablet 150 mg PO QMONTH #3 tabs 01/10/25 02/24/25 Rx methocarbamol 750 mg tablet 750 mg PO TID PRN Muscle spasms 90 01/10/25 02/24/25 Rx days #270 tabs pantoprazole 40 mg tablet,delayed 40 mg PO DAILY #90 tabs 01/10/25 02/24/25 Rx release albuterol sulfate 90 mcg/actuation 2 puff inhalation Q4-6H PRN 01/23/25 02/24/25 Rx aerosol inhaler (Ventolin HFA) shortness of breath or wheezing #8.5 grams furosemide 40 mg tablet (Lasix) 40 mg PO DAILY #90 tabs 01/24/25 02/24/25 Rx gabapentin 300 mg capsule 300 mg PO TID #90 caps 01/31/25 02/24/25 Rx tirzepatide (weight loss) 5 mg/0.5 5 mg (0.5 mL) SQ WEEKLY #2 mL 02/20/25 02/24/25 Rx mL subcutaneous pen injector (Zepbound) baclofen 10 mg tablet See Rx Instructions .Route 02/23/25 02/24/25 Rx .COMPLEX #90 tabs New Prescriptions to Start Prescriptions: Allergies Allergy/AdvReac Type Severity Reaction Status Date / Time morphine Allergy Severe Chest Pain Verified 02/08/25 09:28 sulfamethoxazole (From Allergy Severe Nausea Verified 02/08/25 09:28 Bactrim) trimethoprim (From Bactrim) Allergy Severe Nausea Verified 02/08/25 09:28 Exam Data for Last 24 hours Vital signs and Labs for Last 24 Hours: Pulse Resp BP Pulse Ox O2 Del Method 96 H 18 170/90 H 96 Room Air 02/24/25 15:34 02/24/25 15:34 02/24/25 15:34 02/24/25 15:34 02/24/25 15:34 I & O for Last 24 hours: Intake & Output 02/22/25 02/23/25 02/24/25 02/25/25 11:59 11:59 11:59 11:59 Weight 290 lb *Routine HEENT Exam Head: Present normocephalic Eye: Present EOMI ENT: Present mucous membranes moist *Routine Respiratory Exam Respiratory: Present CTA bilaterally *Routine Cardiovascular Exam Cardiovascular: Present RRR, Normal S1 and Normal S2 *Routine Abdominal Exam Abdominal: Present soft *Routine Rectal Exam Rectal:: deferred *Routine Genitalia Exam Genitalia:: deferred Assessment and Plan *Assessment and plan (1) Sacroiliitis: Status: Acute Category: Medical Code(s): M46.1 - Sacroiliitis, not elsewhere classified (2) Greater trochanteric bursitis: Status: Acute Qualifiers: Laterality: left Qualified Code(s): M70.62 - Trochanteric bursitis, left hip Category: Medical Code(s): M70.60 - Trochanteric bursitis, unspecified hip Plan Left SI joint injection trochanter bursa injection
[2025-02-24 15:38] VITALS: BP 126/92; PULSE 89; RESP 16; O2SAT 100
--- NOTE | 2025-02-24 15:41 | EXP.PAIN.PRO ---
Procedure Date: 02/24/25 Time: 15:41 Anesthesiologist:: Sterling Hsu MD Complications:: None Pre-procedure Diagnosis:: Sacroiliitis and trochanteric bursitis Post-procedure Diagnosis:: Same Indications for Procedure:: This patient is a pleasant 59-year-old white female who presents for left-sided sacroiliitis and trochanteric bursitis. We will do a left SI joint injection and trochanteric bursa injection today. Procedure Details:: Left SI joint injection under fluoroscopy Informed consent was obtained and the risks and benefits of the procedure was explained to the patient. Patient was taken to the procedure room. Patient was placed prone on the procedure table. The left hip was prepped using ChloraPrep. The skin and subcutaneous tissues were anesthetized using lidocaine. I placed a 22-gauge spinal needle into the inferior aspect of the left SI joint. Needle placement was confirmed with dye. After this we injected 5 mL bupivacaine 0.25% and dexamethasone 10 mg into the left SI joint. The patient tolerated the procedure well with no complication. left trochanteric bursa injection under fluoroscopy Informed consent was obtained and the risk and benefits of the procedure was explained to the patient. The patient was taken to procedure room and placed prone on the procedure table. The left hip was prepped using ChloraPrep. The skin and subcutaneous tissues were anesthetized using lidocaine. I placed a 22-gauge spinal needle under fluoroscopic guidance and advanced until it contacted the left greater trochanter. Needle placement was confirmed with dye. After this we injected 5 mL bupivacaine 0.25% and dexamethasone 10 mg. Patient tolerated the procedure well with no complications. Plan and Disposition:: This patient had left SI joint injection with trochanteric bursa injection under fluoroscopy today. Will follow-up with her in 2 weeks.
[2025-02-24] MEDS: IOPAMIDOL-200 (41%);10ML VIAL 10 ML IV (16:43)
== END 2025-02-24 15:38 | disposition home or self-care (01) ==
PROVIDERS: PCP Nurse Practitioner Family; Visit Provider Anesthesiology
DX: M46.1 Sacroiliitis, not elsewhere classified (principal); M70.62 Trochanteric bursitis, left hip; I25.10 Atherosclerotic heart disease of native coronary artery without angina pectoris; E78.5 Hyperlipidemia, unspecified; E66.9 Obesity, unspecified; M81.0 Age-related osteoporosis without current pathological fracture; I25.2 Old myocardial infarction; Z68.42 Body mass index [BMI] 45.0-49.9, adult; Z86.718 Personal history of other venous thrombosis and embolism; Z88.1 Allergy status to other antibiotic agents; Z88.2 Allergy status to sulfonamides; Z88.5 Allergy status to narcotic agent; Z79.83 Long term (current) use of bisphosphonates; Z79.82 Long term (current) use of aspirin; Z79.01 Long term (current) use of anticoagulants; Z79.899 Other long term (current) drug therapy
CPT/HCPCS: 20610; 64450; 99221; J0665; J1100; J2003; Q9966

== ENCOUNTER 2025-03-01 11:15 | Day surgery (SDC) | payer MEDICARE, SELFPAY ==
--- NOTE | 2025-02-23 16:32 | EXP.HP ---
History of Present Illness *Admission Date: 03/01/25 *History of present illness: Mrs. Ontiveros is a 59-year-old female who is here for screening colonoscopy. She does have a history of iron deficiency anemia. The examination is deemed medically necessary for screening colonoscopy. The patient has been seen, interviewed and examined prior to the procedure by both myself and the anesthesia provider. [facility] Disclaimer: The information contained in this section may have been updated after the patient was seen, as this information can be updated by other users. Medical History CAD (coronary artery disease) Encounter for pre-operative examination Encounter for routine gynecological examination Heart attack Hx of deep venous thrombosis Hyperlipidemia Lumbar radiculopathy Nerve damage of left foot Obesity Osteoarthritis Osteoporosis Post-menopausal bleeding Surgical History H/O breast augmentation H/O gastric bypass H/O hernia repair H/O total ankle replacement S/P cholecystectomy Family History Father Diabetes Coronary artery disease Brother Diabetes Family/Other Blood clot in vein Blood disease Social History Smoking Status: Never smoker second hand exposure: No (previously) alcohol intake: never substance use type: denies use current occupational status: disabled Travel in the last 8 weeks?: None Have you lived/traveled outside US in past 30 days?: No Contact w/someone who lives/traveled outside US past 30 days?: No Exposure to someone with infectious disease in past 14 days?: No Do you have a fever (greater than 100.4 F or 38 C)?: No Have you tested positive for COVID-19?: No Exposed to someone with COVID-19 in past 14 days?: No Do you have a sore throat?: No Do you have a cough?: No Do you have any weakness?: No Do you have any diarrhea?: No Are you experiencing any unusual bleeding?: No Do you have any muscle aches/pain?: No Do you have any abdominal pain?: No Are you experiencing loss of taste or smell?: No Other Medical History Have you received the Flu Vaccine for this season: Yes Have you received the Pneumonia Vaccine: Yes Review of Systems Review of Systems Review of systems (narrative): Negative *Cardiovascular Comments: Negative *Gastrointestinal Comments: Negative *Genitourinary Comments: Negative *Musculoskeletal Comments: Negative *Neurologic Comments: Negative Meds Home Medications and Allergies Home Medications ?Medication ?Instructions ?Recorded ?Confirmed ?Type acetaminophen 650 mg 1,300 mg PO TID 10/12/24 03/01/25 History tablet,extended release aspirin 81 mg tablet 81 mg PO DAILY 10/12/24 03/01/25 History cholecalciferol (vitamin D3) 125 125 mcg PO DAILY 10/12/24 03/01/25 History mcg (5,000 unit) capsule folic acid 1 mg tablet 1 mg PO DAILY 10/12/24 03/01/25 History minocycline 100 mg capsule 100 mg PO DAILY 10/12/24 03/01/25 History ferumoxytol 510 mg/17 mL (30 510 mg (17 mL) IV Q3D 2 doses 12/14/24 03/01/25 Rx mg/mL) intravenous solution (Feraheme) polysaccharide iron complex 180 mg 180 mg PO DAILY #30 caps 12/16/24 03/01/25 Rx iron capsule (Pro Fe) sodium,potassium,mag sulfates 17.5 See Rx Instructions PO .COMPLEX 12/21/24 02/24/25 Rx gram-3.13 gram-1.6 gram oral soln #354 mL (Suprep Bowel Prep Kit) enoxaparin 120 mg/0.8 mL 120 mg SQ BID 01/03/25 03/01/25 History subcutaneous syringe apixaban 5 mg tablet (Eliquis) 5 mg PO BID 90 days #180 tabs 01/10/25 03/01/25 Rx duloxetine 30 mg capsule,delayed 30 mg PO DAILY #90 caps 01/10/25 03/01/25 Rx release ibandronate 150 mg tablet 150 mg PO QMONTH #3 tabs 01/10/25 03/01/25 Rx methocarbamol 750 mg tablet 750 mg PO TID PRN Muscle spasms 90 01/10/25 03/01/25 Rx days #270 tabs pantoprazole 40 mg tablet,delayed 40 mg PO DAILY #90 tabs 01/10/25 03/01/25 Rx release albuterol sulfate 90 mcg/actuation 2 puff inhalation Q4-6H PRN 01/23/25 03/01/25 Rx aerosol inhaler (Ventolin HFA) shortness of breath or wheezing #8.5 grams furosemide 40 mg tablet (Lasix) 40 mg PO DAILY #90 tabs 01/24/25 03/01/25 Rx gabapentin 300 mg capsule 300 mg PO TID #90 caps 01/31/25 03/01/25 Rx baclofen 10 mg tablet See Rx Instructions .Route 02/23/25 03/01/25 Rx .COMPLEX #90 tabs tirzepatide 2.5 mg/0.5 mL 2.5 mg SQ WEEKLY 03/01/25 03/01/25 History subcutaneous pen injector (Mounjaro) New Prescriptions to Start Prescriptions: Allergies Allergy/AdvReac Type Severity Reaction Status Date / Time morphine Allergy Severe Chest Pain Verified 03/01/25 12:22 sulfamethoxazole (From Allergy Severe Nausea Verified 03/01/25 12:22 Bactrim) trimethoprim (From Bactrim) Allergy Severe Nausea Verified 03/01/25 12:22 Exam *Routine HEENT Exam Head: Present normocephalic Eye: Present EOMI and PERRL ENT: Present mucous membranes moist *Routine Neck Exam Neck: Present supple *Routine Respiratory Exam Respiratory: Present CTA bilaterally *Routine Cardiovascular Exam Cardiovascular: Present RRR *Routine Abdominal Exam Abdominal: Present soft and normoactive bowel sounds; Absent tenderness *Routine Rectal Exam Rectal:: deferred *Routine Genitalia Exam Genitalia:: deferred *Routine Extremities Exam Extremities: Absent cyanosis, clubbing or edema *Routine Skin Exam Skin: Present warm; Absent rash *Routine Neurological Exam Neurological: Present alert and oriented X3 Assessment and Plan *Assessment and plan (1) Screening for colon cancer: Status: Acute Category: Medical Code(s): Z12.11 - Encounter for screening for malignant neoplasm of colon Plan A/P: 1. Screening for colon cancer is the preprocedural diagnosis. The patient will be anesthetized/sedated using MAC sedation. The patient has been seen and examined. Cardiac and lung assessment prior to the examination is stable. Proceed with planned screening colonoscopy.
[2025-02-24 12:57] VITALS: BMI 45.4
--- NOTE | 2025-03-01 06:41 | P.PCN_ITS ---
[facility] Procedure Note Date: 03/01/25 Time: 13:56 Procedure Note:: Colonoscopy Procedure Report: Colonoscopy with cold snare polypectomy Endoscopist: Charly Stinson II, MD Referring physician: ANA Blandon Date of Procedure: March 01, 2025 Equipment: [email or web address] [id number] adult colonoscope Sedation: MAC sedation Indication: Mrs. Ontiveros is a 59-year-old female who is here for initial screening colonoscopy. The patient reports no abdominal pain, weight loss, rectal bleeding or hematochezia. She has had some bowel irregularity with mixed alternating constipation and diarrhea and she recently has had iron deficiency anemia. The patient does state that she has several paternal uncles with colon cancer. The examination is deemed medically necessary for screening colonoscopy. Procedure: Prior to the procedure, a history and physical exam was performed, and patient's medications and allergies were reviewed. The risks, benefits and alternatives of the sedation and procedure were discussed with the patient. All questions were answered and informed consent was obtained. The patient was brought to the procedure room. Patient identification and proposed procedure were verified by the physician and the nurse. The patient was placed in a left lateral decubitus position and the scope was passed under direct vision. Throughout the procedure, the patient's blood pressure, pulse, and oxygen saturations were monitored continuously. The colonoscopy was accomplished without difficulty. The patient tolerated the procedure well. Findings: On digital rectal examination there was normal rectal tone. There were no external hemorrhoids. The colonoscope was introduced through the anal canal to the rectum and advanced to the cecum. The ileocecal valve and appendiceal orifice were identified. The scope was advanced a short distance into the ileum which appeared grossly normal. The scope was then withdrawn into the colon. There were 5 colon polyps (cecum x 1 (4 mm), ascending x 1 (4 mm), descending x 2 (5 and 7 mm) and sigmoid x 1 (5 mm)). All of these were removed via cold snare polypectomy. The remaining cecum, ascending and transverse colon and mucosa were grossly normal. There were extensively scattered diverticuli throughout the descending and sigmoid colon (LEFT colon). The rectum itself was normal. Upon retroflexion within the rectum there were grade 1-2 internal hemorrhoids. The preparation was excellent throughout with Ragan Preparation Score of 9. The cecal time was 15 minutes. Impression: 1. Diminutive colonic polyps x 5 2. Extensive left-sided diverticulosis 3. Grade 1-2 internal hemorrhoids Plan: I will follow-up the polyp histology and recommend repeat screening/surveillance colonoscopy again in 3 years based upon the pathology. I would encourage psyllium fiber supplementation on a long-term daily maintenance basis.
[2025-03-01 12:32] VITALS: BP 141/101; PULSE 71; RESP 18; TEMP 36.4; O2SAT 96
[2025-03-01] MEDS: LACTATED RINGERS 1000ML 1,000 ML 50 ML IV (12:45)
--- NOTE | 2025-03-01 13:04 | EXP.ANES.CKL ---
[facility] Disclaimer: The information contained in this section may have been updated after the patient was seen, as this information can be updated by other users. Medical History CAD (coronary artery disease) Encounter for pre-operative examination Encounter for routine gynecological examination Heart attack Hx of deep venous thrombosis Hyperlipidemia Lumbar radiculopathy Nerve damage of left foot Obesity Osteoarthritis Osteoporosis Post-menopausal bleeding Surgical History H/O breast augmentation H/O gastric bypass H/O hernia repair H/O total ankle replacement S/P cholecystectomy Family History Father Diabetes Coronary artery disease Brother Diabetes Family/Other Blood clot in vein Blood disease Social History Smoking Status: Never smoker second hand exposure: No (previously) alcohol intake: never substance use type: denies use current occupational status: disabled Travel in the last 8 weeks?: None Have you lived/traveled outside US in past 30 days?: No Contact w/someone who lives/traveled outside US past 30 days?: No Exposure to someone with infectious disease in past 14 days?: No Do you have a fever (greater than 100.4 F or 38 C)?: No Have you tested positive for COVID-19?: No Exposed to someone with COVID-19 in past 14 days?: No Do you have a sore throat?: No Do you have a cough?: No Do you have any weakness?: No Do you have any diarrhea?: No Are you experiencing any unusual bleeding?: No Do you have any muscle aches/pain?: No Do you have any abdominal pain?: No Are you experiencing loss of taste or smell?: No [facility] Anesthesia Checklist Patient Identification Patient Identification: Arm Band Structural Data Admitted From: Home Planned Operative Procedure/s: Colonoscopy Consent for Planned Operative Procedure(s) Verified: Yes Verified Documents: Surgical Consent and History and Physical NPO Status Verified Time NPO: 09:00 Additional verifications Anesthesia Reactions: No Hx Blood Transfusions: No Blood Transfusion Reaction: No Airway Assessment Mallampati Score:: Class II C-Spine Mobility Assessed: Yes TMJ Mobility Assessed: Yes Dentition: Edentulous Neurological Assessment Level of Consciousness: Awake, Alert and Appropriate Anesthesia Plan Anesthesia Risk discussed: Yes Anesthesia Plan: Verified ASA Class: III Anesthesia Type: MAC
[2025-03-01 14:01] VITALS: BP 132/83; PULSE 103; RESP 16; TEMP 36.7; O2SAT 95
--- NOTE | 2025-03-01 14:08 | ECG_ITS ---
APPROVED REPORT Exam: Resting ECG HR:102 bpm ECG Measurements Heart Rate 102 AXES QRSd 99 QRS 46 QT 356 T -34 QTc 414 Conclusion ATRIAL FIBRILLATION WITH RAPID VENTRICULAR RESPONSE LOW QRS VOLTAGE IN EXTREMITY LEADS [QRS DEFLECTION < 0.5 mV IN LIMB LEADS] POSSIBLE ANTERIOR MYOCARDIAL INFARCTION , PROBABLY OLD [30 ms Q WAVE IN V3/V4, OR R < 0.2 mV IN V4] ABNORMAL RHYTHM ECG UNCONFIRMED REPORT Electronically signed by : Alberto Esposito MD 03/02/2025 16:06:46
[2025-03-01 14:11] VITALS: BP 151/96; PULSE 93; RESP 16; TEMP 37.7; O2SAT 100
[2025-03-01 14:21] VITALS: BP 145/87; PULSE 94; RESP 16; TEMP 36.7; O2SAT 100
[2025-03-01 14:31] VITALS: BP 150/93; PULSE 93; RESP 18; O2SAT 100
[2025-03-01 15:01] VITALS: BP 162/87; PULSE 90; RESP 18; O2SAT 99
--- NOTE | 2025-03-01 15:26 | EXP.CARD.CON ---
History of Present Illness History of Present Illness Consult date: 03/01/25 Requesting physician: Charly Stinson II Chief complaint: a-fib History of present illness: 59 yo WF with hx of recurrent DVT on Eliquis but no other known CVD, typically follows with Dr. Ross in [place] but wanting to transfer her care to [place]. Came today for screening Colonoscopy and was found to have rate controlled and asymptomatic A-fib in post-op. She denies any other known prior episodes and reports she is feeling well. [facility] Disclaimer: The information contained in this section may have been updated after the patient was seen, as this information can be updated by other users. Medical History CAD (coronary artery disease) Hx of deep venous thrombosis Encounter for pre-operative examination Lumbar radiculopathy Heart attack Hyperlipidemia Nerve damage of left foot Osteoporosis Encounter for routine gynecological examination Post-menopausal bleeding Osteoarthritis Obesity Surgical History H/O breast augmentation S/P cholecystectomy H/O hernia repair H/O total ankle replacement H/O gastric bypass Family History Father Diabetes Coronary artery disease Brother Diabetes Family/Other Blood clot in vein Blood disease Social History Smoking Status: Never smoker second hand exposure: No (previously) alcohol intake: never substance use type: denies use current occupational status: disabled Travel in the last 8 weeks?: None Review of Systems Constitutional Constitutional: Denies fatigue and Denies weakness Eyes Eyes: Denies loss of vision ENT Ears, Nose, Mouth, and Throat: Denies hearing loss and Denies vertigo *Cardiovascular Cardiovascular: Denies chest pain, Denies dyspnea and Denies syncope *Respiratory Respiratory: Denies cough and Denies dyspnea *Gastrointestinal Gastrointestinal: Denies change in stool character, Denies nausea and Denies vomiting *Musculoskeletal Musculoskeletal: Denies muscle weakness Integumentary/Breasts Skin/Breast: Denies changing lesions *Neurologic Neurologic: Denies loss of vision, Denies syncope, Denies vertigo and Denies weakness Endocrine Endocrine: Denies fatigue Exam Data for Last 24 hours Vital signs and Labs for Last 24 Hours: Temp Pulse Resp BP Pulse Ox O2 Del Method 98.1 F 94 H 16 145/87 H 100 Room Air 03/01/25 14:21 03/01/25 14:21 03/01/25 14:21 03/01/25 14:21 03/01/25 14:21 03/01/25 14:21 Constitutional Constitutional: no acute distress and cooperative *Routine HEENT Exam Eye: Present PERRL *Routine Respiratory Exam Respiratory: Present CTA bilaterally; Absent accessory muscle use, wheezes or crackles *Routine Cardiovascular Exam Cardiovascular: Present irregularly irregular; Absent murmur, gallop or rubs *Routine Abdominal Exam Abdominal: Present soft; Absent tenderness *Routine Extremities Exam Extremities: Present pulses intact; Absent cyanosis or edema *Routine Skin Exam Skin: Present intact; Absent erythema or wounds *Routine Neurological Exam Neurological: Present alert and oriented X3 Routine Psychiatric Exam Psychiatric: Present cooperative Meds Home Medications and Allergies Home Medications ?Medication ?Instructions ?Recorded ?Confirmed ?Type acetaminophen 650 mg 1,300 mg PO TID 10/12/24 03/01/25 History tablet,extended release aspirin 81 mg tablet 81 mg PO DAILY 10/12/24 03/01/25 History cholecalciferol (vitamin D3) 125 125 mcg PO DAILY 10/12/24 03/01/25 History mcg (5,000 unit) capsule folic acid 1 mg tablet 1 mg PO DAILY 10/12/24 03/01/25 History minocycline 100 mg capsule 100 mg PO DAILY 10/12/24 03/01/25 History ferumoxytol 510 mg/17 mL (30 510 mg (17 mL) IV Q3D 2 doses 12/14/24 03/01/25 Rx mg/mL) intravenous solution (Feraheme) polysaccharide iron complex 180 mg 180 mg PO DAILY #30 caps 12/16/24 03/01/25 Rx iron capsule (Pro Fe) sodium,potassium,mag sulfates 17.5 See Rx Instructions PO .COMPLEX 12/21/24 02/24/25 Rx gram-3.13 gram-1.6 gram oral soln #354 mL (Suprep Bowel Prep Kit) enoxaparin 120 mg/0.8 mL 120 mg SQ BID 01/03/25 03/01/25 History subcutaneous syringe apixaban 5 mg tablet (Eliquis) 5 mg PO BID 90 days #180 tabs 01/10/25 03/01/25 Rx duloxetine 30 mg capsule,delayed 30 mg PO DAILY #90 caps 01/10/25 03/01/25 Rx release ibandronate 150 mg tablet 150 mg PO QMONTH #3 tabs 01/10/25 03/01/25 Rx methocarbamol 750 mg tablet 750 mg PO TID PRN Muscle spasms 90 01/10/25 03/01/25 Rx days #270 tabs pantoprazole 40 mg tablet,delayed 40 mg PO DAILY #90 tabs 01/10/25 03/01/25 Rx release albuterol sulfate 90 mcg/actuation 2 puff inhalation Q4-6H PRN 01/23/25 03/01/25 Rx aerosol inhaler (Ventolin HFA) shortness of breath or wheezing #8.5 grams furosemide 40 mg tablet (Lasix) 40 mg PO DAILY #90 tabs 01/24/25 03/01/25 Rx gabapentin 300 mg capsule 300 mg PO TID #90 caps 01/31/25 03/01/25 Rx baclofen 10 mg tablet See Rx Instructions .Route 02/23/25 03/01/25 Rx .COMPLEX #90 tabs metoprolol succinate 25 mg 25 mg PO DAILY #30 tabs 03/01/25 Rx tablet,extended release 24 hr tirzepatide 2.5 mg/0.5 mL 2.5 mg SQ WEEKLY 03/01/25 03/01/25 History subcutaneous pen injector (Atiliounrobertaro) New Prescriptions to Start Prescriptions: Allergies Allergy/AdvReac Type Severity Reaction Status Date / Time morphine Allergy Severe Chest Pain Verified 03/01/25 12:22 sulfamethoxazole (From Allergy Severe Nausea Verified 03/01/25 12:22 Bactrim) trimethoprim (From Bactrim) Allergy Severe Nausea Verified 03/01/25 12:22 Assessment and Plan *Assessment and plan (1) Atrial fibrillation with controlled ventricular rate: Status: Acute Category: Medical Code(s): I48.91 - Unspecified atrial fibrillation Plan New A-fib with CVR post Colonoscopy - pt is asymptomatic - I have asked the nurse to ensure she can ambulate without significant HR fluctuation or symptoms - Start Toprol XL 25mg daily - Resume home dose Eliquis (was already on this for recurrent DVT) - apply 2 week live heart monitor prior to DC - hydrate - OP f/u with us 1 week, will obtain her records from [place]. Likely plan for 2D ECHO and ischemic evaluation Recurrent DVT, Coagulopathy - resume home dose Eliquis - ok per GI Morbid Obesity, BMI 45 - address op. - CV stable for DC home
== END 2025-03-01 15:01 | disposition home or self-care (01) ==
PROVIDERS: PCP Nurse Practitioner Family; Visit Provider Internal Medicine Gastroenterology
PROC: 0DJD8ZZ Inspection of Lower Intestinal Tract, Via Natural or Artificial Opening Endoscopic (ICD-10-PCS; CPT 45378; principal; 2025-03-01 13:00)
DX: Z12.11 Encounter for screening for malignant neoplasm of colon (principal); D12.5 Benign neoplasm of sigmoid colon; D12.0 Benign neoplasm of cecum; D12.2 Benign neoplasm of ascending colon; D12.4 Benign neoplasm of descending colon; K64.0 First degree hemorrhoids; K64.1 Second degree hemorrhoids; K57.30 Diverticulosis of large intestine without perforation or abscess without bleeding; I25.10 Atherosclerotic heart disease of native coronary artery without angina pectoris; E78.5 Hyperlipidemia, unspecified; Z79.01 Long term (current) use of anticoagulants; Z79.82 Long term (current) use of aspirin; M81.0 Age-related osteoporosis without current pathological fracture; D50.9 Iron deficiency anemia, unspecified; M19.90 Unspecified osteoarthritis, unspecified site; Z88.2 Allergy status to sulfonamides; Z88.5 Allergy status to narcotic agent
CPT/HCPCS: 45385; 88305; 93005; 93270; J2003; J2704; J7120

== ENCOUNTER 2025-03-08 13:38 | Outpatient (CLI) | payer MEDICARE, SELFPAY ==
--- OUTSIDE RECORDS SUMMARY | 2025-01-16 08:30 | XMS_ITS | Encounter Summary ---
Author Organization Healthcare Address [address] [place] [address] Care Team Providers Care Blow Pit Helper Name Role Phone Abby Phillip TRANSPORTER DRIVER Primary Care Provider [phone] Reason for Visit * Reason Comments Consult +GARRY * Consultation (Routine) - Closed Specialty Diagnoses / Procedures Referred By Mike martin Referred To Contact Rheumatology Diagnoses Positive GARRY (antinuclear antibody) Abby Phillip, TRANSPORTER DRIVER [address] [place] [address] Phone: tel: fax: Referral ID Status Reason Start Date Expiration Date V isits Requested Visits Authorized [id number] Closed Specialty Services Required 12/28/2024 06/29/2026 1 1 Encounter Details Date Type Department Care Team (Late st Contact Info) Description 01/16/2025 9:30 AM EDT [facility] [address] [place] [address] Graeme, May R, TRANSPORTER DRIVER [address] [place] [address] History of DVT (deep vein thrombosis) (Primary Dx); GARRY positive; Polyarthralgia; Bilateral hip pain Social History Tobacco Use Types Packs/Day Years Used Date Smoking Tobacco: Never Smokeless Tobacco: Never Tobacco Cessation:Counseling Given: Not Answered Alcohol Use Standard Drinks/Week Comments No 0 (1 standard drink = 0.6 oz pur e alcohol) Comments Unknown Sex and Gender Information Value Date Recorded Sex Assigned at Not on file Legal Sex Female 6:50 PM EDT Gender Identity Not on file Sexual Orientation Not on file documented as of this encounter Last Filed Vital Signs Vital Sign Reading Time Taken Comments Blood Pressure 140/80 01/16/2025 9:00 AM EDT Pulse 59 01/16/2025 9:00 AM EDT Temperature - - Respiratory Rate - - Oxygen Saturation 96% 01/16/2025 9:00 AM EDT Inhaled Oxygen Concentration - - Weight 135 kg (297 lb 9.9 oz) 01/16/2025 9:00 AM EDT Height 170.2 cm (5' 7 ) 01/16/2025 9:00 AM EDT Body Mass Index 46.61 01/16/2025 9:00 AM EDT documented in this encounter Miscellaneous Notes * Progress Notes - April Bedolla APRN - 01/16/2025 9:30 AM EDT Subjective Patient ID: Janis Lorenzana is a 59 y.o. female with HPI Janis Lorenzana is a 59 y.o. female with PMH significant for HTN, chronic pain, Hx of Gastric bypass, DVT left leg 1994, Chronic low back pain, who presents as a new consult evaluation for GARRY+ and joint pain. Pt was referred by Abby Phillip APRN Referral note and labs reviewed: Outside labs: Neg RF, elevated Von Willebrand factor, Factor VIII activity, GARRY 1:320 Speckled Neg HIV, HEP ABC 11/2024 Joints: Today: Left hip pain. She had a total ankle replacement left 2021. Some hand pain. Some swelling in hands at the end of the days. Morning stiffness lasts a couple hours. Left side is the badside . Left knee pain. Left elbow pain. Activity makes pain worse. Active with Hematology in [place]. Had uterine biopsy on Thursday. Initial Rheumatological ROS positive for blood clots x 4 one was unprovoked. dry mouth, dry eyes Rest ROS negative for , , oral ulcers, nasal ulcers, alopecia, serositis, psoriasis, rash, photosensitivity, Raynaud's symptoms or digit ulcerations, renal disease or macroscopic hematuria, psychosisor delirium, seizures, IBD, uveitis or episcleritis, or miscarriages. Review of Systems Constitutional: Positive for fatigue. Negative for chills and fever. HENT: Negative for mouth sores. Eyes: Negative for pain, redness and visual disturbance. Respiratory: Negative for cough and shortness of breath. Cardiovascular: Negative for chest pain and palpitations. Gastrointestinal: Negative for diarrhea and nausea. Genitourinary: Negative for hematuria. Musculoskeletal: Positive for arthralgias, back pain and joint swelling. See HPI Skin: Negative for rash. Neurological: Positive for headaches. Negative for seizures. Psychiatric/Behavioral: Positive for sleep disturbance. Negative for hallucinations. Family History: No FH of autoimmune diseases. Social History: No known exposure to HCV or HIV. No hx IV drug use. No hx of tobacco use. No hx of alcohol abuse. Occupational hx: Disabled The following portions of the chart were reviewed this encounter and updated as appropriate: Past Medical History[1] Surgical History[2] Social History Socioeconomic History Marital status: Spouse name: Not on file Number of children: Not on file Years of education: Not on file Highest education level: Not on file Occupational History Not on file Tobacco Use Smoking status: Never Smokeless tobacco: Never Vaping Use Vaping status: Never Used Substance and Sexual Activity Alcohol use: No Drug use: No Comment: Drug use: Does not use illicit drugs Sexual activity: Not on file Other Topics Concern Not on file Social History Narrative Not on file Social Drivers of Health Financial Resource Strain: Low Risk (08/17/2023) Received from [facility] ([place], [place], [place], [place]) Financial Resource Strain How hard is it for you to pay for the very basics like food, housing, medical care, and heating? Would you say it is:: Not hard at all Food Insecurity: No Food Insecurity (08/17/2023) Received from [facility] ([place], [place], [place], [place]) Food Insecurity Within the past 12 months, you worried that your food would run out before you got money to buy more.: Never true Within the past 12 months, the food you bought just didn't last and you didn't have money to get more.: Never true Transportation Needs: No Transportation Needs (08/17/2023) Received from [facility] ([place], [place], [place], [place]) Transportation Needs In the past 12 months, has lack of reliable transportation kept you from medical appointments, meetings, work or from getting things needed for daily living?: No Physical Activity: Inactive (08/17/2023) Received from [facility] ([place], [place], [place], [place]) Physical Activity Number of minutes of exercise per week : 0 Stress: Not on file Social Connections: Unknown (08/17/2023) Received from [facility] ([place], [place], [place], [place]) Family and Community Support If for any reason you need help with day-to-day activities such as bathing, preparing meals, shopping, managing finances, etc., do you get the help you need?: I don't need any help Feeling Lonely or Isolated: 0 Intimate Partner Violence: Unknown (02/09/2023) Received from [facility] Abuse Screen Unsafe at Home or Work/School: Not on file Feels Threatened by Someone?: Not on file Does Anyone Keep You from Contacting Others or Doint Things Outside the Home?: Not on file Physical Sign of Abuse Present: Not on file Housing Stability: Unknown (02/09/2023) Received from [facility] Housing Stability Current Living Arrangements: Not on file Potentially Unsafe Housing Conditions: Not on file Family History[3] Allergies[4] Current Medications[5] Objective Vitals: 01/16/25 0900 BP: (!) 140/80 Pulse: 59 SpO2: 96% Physical Exam Vitals reviewed. Constitutional: General: She is not in acute distress. Appearance: Normal appearance. Eyes: Conjunctiva/sclera: Conjunctivae normal. Cardiovascular: Rate and Rhythm: Normal rate and regular rhythm. Heart sounds: No murmur heard. Pulmonary: Effort: Pulmonary effort is normal. Breath sounds: Normal breath sounds. Musculoskeletal: Comments: Digits and nails were normal. See homunculus. Joints had a normal ROM and normal alignment. No synovitis. Spine: Full ROM of cervical, thoracic and lumbar spines. No tenderness to palpation. No step-offs. OTWD 0 cm. Finger to floor distance < 5 cm. Finger to fibula distance < 5 cm. Chest expansion normal. Skin: General: Skin is warm. Findings: No rash. Neurological: General: No focal deficit present. Mental Status: She is alert. Psychiatric: Mood and Affect: Mood normal. There is currently no information documented on the homunculus. Go to the Rheumatology activity andcomplete the homunculus joint exam. Joint Exam 01/16/2025 No joint exam has been documented for this visit No data to display Swollen Joint Count: Swollen: -- 0 Tender Joint Count: Tender: -- 0 Patient global assessment: 5/10 Rapid 3 score: 14/30 CDAI:10 Assessment/Plan No diagnosis found. Diagnosis Plan 1. History of DVT (deep vein thrombosis) Diff Dx:APS, Factor VIII def Pt reported 4 DVTs one unprovoked On Eliquis so the Lupus Anticoagulant may be affected Beta-2 Glycoprotein 1 Antibody, IgA Anti-Beta 2 Glycoprotein, IgG and IgM Cardiolipin antibody, IgA Anticardiolipin IgG and IgM Lupus Anticoagulant Profile RPR With Reflex to Titer 2. GARRY positive 1:320 Speckled Diff Dx: Susan's, SLE, Sjogren's, False positive No SLE symptoms POSITIVE GARRY Having positive GARRY does not mean you have an autoimmune disease. 15-20% of healthy people can havepositive low titer GARRY. Out of that only 11-13% eventually develop SLE. GARRY can also be positive inother autoimmune diseases such as hypothyroidism/hyperthyroidism, IBD, autoimmune hepatitis, and various infectious diseases (HCV, EBV, HIV, parvovirus, etc.) Beta-2 Glycoprotein 1 Antibody, IgA Anti-Beta 2 Glycoprotein, IgG and IgM Cardiolipin antibody, IgA Anticardiolipin IgG and IgM Lupus Anticoagulant Profile RPR With Reflex to Titer Antinuclear Antibody (GARRY), HEp-2, IgG Double-Stranded DNA (dsDNA) Antibody, IgG by IFA C3 Complement C4 Complement CBC and Differential ENAI ENAII Protein, Random, Urine with Creatinine Baker (DANICA) Antibody, IgG Thyroid Peroxidase Antibody Thyroid Stimulating Hormone, Plasma Urinalysis with reflex microscopic (Culture NOT Included) 3. Polyarthralgia HLA B27 Typing I reviewed MRI of Hip from [facility]. Tendonitis noted. No sacroiliitis. 4. Bilateral hip pain XR Sacroiliac Joints 3+ Views Records requested from [facility] MRI of Thoracic and Lumbar spine uploaded via disc. HLA B27 today RTC PRN pending results Today, I personally spent 49 minutes on the encounter. The patient was counseled about diagnostic results, instruction for management, risk factors reduction, prognosis, compliance with visits and treatment, risks and benefits of treatments options. Prior notes (by external physicians) and results were reviewed by me with independent interpretation of labs and imaging. My note will be sent to PCPand other consulting physicians. Parts of this note were dictated using [employer] voice recognition software. As a result, errors may occur. When identified, these supervisor shellfish farming errors are corrected, but while every attempt is made to prevent/correct these, errors may still exist. [1] Past Medical History: Diagnosis Date Abdominal pannus 07/19/2018 Acute candidiasis of vulva and vagina 09/21/2023 Anemia 01/16/2025 Ankle pain, left 07/18/2022 Benign essential hypertension 08/26/2023 CAD (coronary artery disease) 08/17/2023 Chronic osteomyelitis involving ankle and foot ([facility]) 08/21/2023 Chronic ulcer of ankle ([facility]) 07/18/2022 Deep vein thrombosis (DVT) ([facility]) 09/06/2018 Excess skin of abdomen 07/19/2018 Hernia of abdominal wall 07/09/2012 History of arthroplasty of left ankle 04/23/2022 Iron deficiency anemia 01/16/2025 Low back pain over 5 years ago Lymphedema 01/16/2025 Morbid obesity due to excess calories ([facility]) 08/26/2023 Old myocardial infarction History of heart attack ADONIS (obstructive sleep apnea) 04/23/2022 Osteoarthritis diagnosed 2021 Osteomyelitis of left foot ([facility]) 08/17/2023 Osteoporosis 2021 Pain management 04/23/2022 Personal history of other diseases of the circulatory system History of irregular heartbeat Personal history of other venous thrombosis and embolism History of blood clots Plantar fasciitis 2021 Sciatica 2022 Scleroderma ([facility]) 2021 Scleroderma ([facility]) 08/17/2023 Stasis, venous 07/18/2022 [2] Past Surgical History: Procedure Laterality Date BREAST SURGERY N/A Breast Surgery Enlargement Procedure from [facility] GALLBLADDER SURGERY N/A Gallbladder Surgery from [facility] GASTRIC BYPASS N/A gastric bypass surgery from [facility] HERNIA REPAIR N/A Hernia Repair from [facility] IVC FILTER PLACEMENT N/A inferior vena cava filter placement from [facility] [3] Family History Problem Relation Name Age of Onset Diabetes Father 60 - 69 Heart disease Father 60 - 69 Diabetes Brother 50 - 59 Obesity Brother 40 - 49 Recurrent Infections Brother 50 - 59 [4] Allergies Allergen Reactions Morphine Other - please document in the comment field and Unknown - Patient states they do not knowrxn details Chest pain Sulfamethoxazole-Trimethoprim Nausea, Vomiting and Unknown - Patient states they do not know rxn details [5] Current Outpatient Medications Medication Sig Dispense Refill acetaminophen (Tylenol 8 Hour) 650 MG ER tablet Take 1 tablet by mouth. apixaban (Eliquis) 5 MG tablet Take 1 tablet by mouth twice a day. ASPIRIN 81 MG chewable tablet Chew 1 tablet 1 time each day. cholecalciferol (Vitamin D3) 5,000 Units tablet Take 1 tablet by mouth 1 time each day. DULoxetine (Cymbalta) [address] capsule Take 1 capsule by mouth 1 time each day. folic acid (Folvite) 400 MCG tablet Take 2 tablets by mouth 1 time each day. furosemide (Lasix) 40 MG tablet Take 1 tablet by mouth 1 time each day. gabapentin (Neurontin) 300 MG capsule Take 1 capsule by mouth 3 times a day. ibandronate (Boniva) 150 MG tablet Take 1 tablet by mouth. ibuprofen 800 MG tablet TAKE ONE TABLET BY MOUTH EVERY 8 HOURS NEEDED FOR PAIN --TAKE WITH FOOD-- LANSOPRAZOLE PO methocarbamol (Robaxin) 750 MG tablet Take 1 tablet by mouth 3 times a day. minocycline 100 MG capsule oxyCODONE (Roxicodone) 5 MG immediate release tablet as needed. pantoprazole (Protonix) 40 MG EC tablet No current facility-administered medications for this visit. documented in this encounter Plan of Treatment Not on file documented as of this encounter Results * XR Sacroiliac Joints 3+ Views (01/16/2025 10:29 AM EDT) Anatomical Region Laterality Modality Body, Spine, Pelvis Digital Radi ography Impressions 01/16/2025 10:53 AM EDT Mild degenerative changes of the bilateral sacroiliac joint and bilateral hip. No findings of sacroiliitis. CRITICAL RESULT: No. COMMUNICATION: Per this written report. Drafted by Jam Lopez MD on 01/16/2025 10:51 AM Final report signed by Jam Lopez MD on 01/16/2025 10:53 AM Narrative 01/16/2025 10:53 AM EDT CLINICAL INDICATION: ?Sacroiliitis TECHNIQUE: XR SACROILIAC JOINTS 3+ VIEWS COMPARISON: MRI dated September 09, 2024. FINDINGS: 3 views of the sacroiliac joints show normal joint space and alignment with vacuum phenomenon in the bilateral SI joint. No erosive changes or inflammatory bone formation. No fracture or bone destruction. Minimal degenerative changes of the bilateral SI joint. Mild degenerative changes at the superior rim of the bilateral acetabulum. Pubic symphysis is normal. Procedure Note Jam Lopez MD - 01/16/2025 CLINICAL INDICATION: ?Sacroiliitis TECHNIQUE: XR SACROILIAC JOINTS 3+ VIEWS COMPARISON: MRI dated September 09, 2024. FINDINGS: 3 views of the sacroiliac joints show normal joint space and alignmentwith vacuum phenomenon in the bilateral SI joint. No erosive changes orinflammatory bone formation. No fracture or bone destruction. Minimaldegenerative changes of the bilateral SI joint. Mild degenerative changesat the superior rim of the bilateral acetabulum. Pubic symphysis isnormal. IMPRESSION: Mild degenerative changes of the bilateral sacroiliac joint and bilateralhip. No findings of sacroiliitis. CRITICAL RESULT: No. COMMUNICATION: Per this written report. Drafted by Jam Lopez MD on 01/16/2025 10:51 AM Final report signed by Jam Lopez MD on 01/16/2025 10:53 AM may R Graeme TRANSPORTER DRIVER IMG XR PROCEDURES Final Res ult * (ABNORMAL) Urinalysis with reflex microscopic (Culture NOT Included) (01/16/2025 10:16 AM EDT) Color, Urine Yellow LAB URINALYSIS - AUTOMATED METHOD 01/16/2025 11:59 AM EDT [facility] Clarity, Urine Clear LAB URINALYSIS - AUTOMATED METHOD 01/16/2025 11:59 AM EDT [facility] Spec [place], Urine 1.013 1.005 - 1.030 LAB URINALYSIS - AUTOMATED METHOD 01/16/2025 11:59 AM EDT [facility] pH, Urine 6.0 5.0 - 8.0 LAB URINALYSIS - AUTOMATED METHOD 01/16/2025 11:59 AM EDT [facility] Protein, Urine Negative Negative mg/dL LAB URINALYSIS - AUTOMATED METHOD 01/16/2025 11:59 AM EDT [facility] Glucose, Urine Negative Negative mg/dL LAB URINALYSIS - AUTOMATED METHOD 01/16/2025 11:59 AM T [facility] Ketones, Urine Negative Negative mg/dL LAB URINALYSIS - AUTOMATED METHOD 01/16/2025 11:59 AM T [facility] Blood, Urine Large(A) Negative LAB URINALYSIS - AUTOMATED METHOD 01/16/2025 11:59 AM T [facility] Bilirubin, Urine Negative Negative LAB URINALYSIS - AUTOMATED METHOD 01/16/2025 11:59 AM T [facility] Urobilinogen, Urine 0.2 0.2 to 1.0 mg/dL LAB URINALYSIS - AUTOMATED METHOD 01/16/2025 11:59 AM T [facility] Leukocytes, Urine Small(A) Negative LAB URINALYSIS - AUTOMATED METHOD 01/16/2025 11:59 AM T [facility] Nitrite, Urine Negative Negative LAB URINALYSIS - AUTOMATED METHOD 01/16/2025 11:59 AM T [facility] RBC, Urine 11 - 15(A) 0 to 3 /HPF LAB URINALYSIS - AUTOMATED METHOD 01/16/2025 11:59 AM T [facility] WBC, Urine 6 - 10(A) 0 to 5 /HPF LAB URINALYSIS - AUTOMATED METHOD 01/16/2025 11:59 AM T [facility] Squamous Epithelial Cells 11 - 20(A) 0 to 5 /HPF LAB URINALYSIS - AUTOMATED METHOD 01/16/2025 11:59 AM T [facility] Hyaline Casts 0 - 2 0 to 5 /LPF LAB URINALYSIS - AUTOMATED METHOD 01/16/2025 11:59 AM [facility] Bacteria, Urine Negative Negative LAB URINALYSIS - AUTOMATED METHOD 01/16/2025 11:59 AM [facility] Urine Urine specimen obtained by clean catch procedure / Unknown Non-blood Collection / Unknown 01/16/2025 10:16 AM EDT 01/16/2025 10:16 AM EDT May R Graeme TRANSPORTER DRIVER LAB URINE ORDERABLES Final Result [facility] [address] [place] [address] * Protein, Random, Urine with Creatinine (01/16/2025 10:16 AM EDT) Protein, Urine 6 mg/dL 01/16/2025 12:12 PM EDT [facility] Creatinine, Urine 34 mg/dL 01/16/2025 12:12 PM EDT [facility] Protein/Creatin ine Ratio 0.2 mg/mg Creat 01/16/2025 12:12 PM EDT [facility] Urine Urine specimen obtained by clean catch procedure / Unknown Non-blood Collection / Unknown 01/16/2025 10:16 AM EDT 01/16/2025 10:16 AM EDT us May R Graeme TRANSPORTER DRIVER LAB URINE ORDERABLES Final Result Performing Organization Address City/[facility]/ZIP Co de Phone Number [facility] [address] [place] [address] * Cyclic Citrul Peptide Antibody IgG (01/16/2025 10:15 AM EDT) [facility] Cyclic Citrul Peptide Antibody IgG <5.0 <=5.0 U/mL 01/16/2025 3:17 PM EDT [facility] Blood Venous blood specimen / Unknown Venipuncture / Unknown 01/16/2025 10:15 AM EDT 01/16/2025 10:15 AM EDT May R Graeme TRANSPORTER DRIVER LAB BLOOD ORDERABLES Final Result [facility] [address] [place] [address] * Rheumatoid Factor, Plasma (01/16/2025 10:15 AM EDT) Rheumatoid Factor, Plasma <10 <14 IU/mL 01/16/2025 1:24 PM EDT [facility] Blood Venous blood specimen / Unknown Venipuncture / Unknown 01/16/2025 10:15 AM EDT 01/16/2025 10:15 AM EDT may R Graeme [place] [facility] BLOOD ORDERABLES Final Result Performing Organization Address [facility]/ZIP Co de Phone Number [facility] [address] [place] [address] * HLA B27 Typing (01/16/2025 10:15 AM EDT) Blood Venous blood specimen / Unknown Venipuncture / Unknown 01/16/2025 10:15 AM EDT 01/16/2025 10:15 AM EDT may Graeme [place] BLOOD ORDERABLES Final Result Performing Organization Address [facility]/[place] Co de Phone Number [facility] [address] [place] [address], * Thyroid Stimulating Hormone, Plasma (01/16/2025 10:15 AM EDT) Thyroid Stimulating Hormone, Plasma 0.48 0.40 - 4.20 uIU/mL 01/16/2025 1:24 PM EDT [facility] Blood Venous blood specimen / Unknown Venipuncture / Unknown 01/16/2025 10:15 AM EDT 01/16/2025 10:15 AM EDT may R Graeme [place] [facility] BLOOD ORDERABLES Final Result [facility] [address] [place] [address] * Thyroid Peroxidase Antibody (01/16/2025 10:15 AM EDT) Thyroid Peroxidase Antibody <5 <=8 IU/mL 01/16/2025 1:57 PM EDT [facility] Blood Venous blood specimen / Unknown Venipuncture / Unknown 01/16/2025 10:15 AM EDT 01/16/2025 10:15 AM EDT May R Graeme [facility] BLOOD ORDERABLES Final Result [facility] [address] [place] [address] * Baker (DANICA) Antibody, IgG (01/16/2025 10:15 AM EDT) Baker (DANICA) Antibody, IgG 2 0 - 40 AU/mL 01/19/2025 1:10 PM EDT [facility] ([facility]) Serum 01/16/2025 10:1 5 AM EDT 01/16/2025 10:15 AM EDT Narrative [facility] ([facility]) - 01/19/2025 1:10 PM EDT INTERPRETIVE INFORMATION: Baker (DANICA) Antibody, IgG 29 AU/mL or Less ............. Negative 30 - 40 AU/mL ................ Equivocal 41 AU/mL or Greater .......... Positive Baker antibody is highly specific (greater than 90 percent) for systemic lupus erythematosus (SLE) but only occurs in 30-35 percent of SLE cases. The presence of antibodies to Baekr has variable associations with SLE clinical manifestations. Performed By: [facility] [address] [place] [address] Sheet Writer: El Duarte MD, PhD CLIA Number: [id number] May R Graeme [facility] REF LAB BLOOD AND FLUID ORD Final Result [facility] ([facility]) [address] [place] [address] * ENAII (01/16/2025 10:15 AM EDT) SSA-52 (RO52) (DANICA) Antibody, IgG 1 0 - 40 AU/mL 01/19/2025 1:10 PM EDT [facility] ([facility]) SSA-60 (RO60) (DANICA) Antibody, IgG 0 0 - 40 AU/mL 01/19/2025 1:10 PM EDT [facility] ([place]) SSB ([place]) (DANICA) Antibody, IgG 0 0 - 40 AU/mL 01/19/2025 1:10 PM EDT [facility] ([place]) Blood Venous blood specimen / Unknown Venipuncture / Unknown 01/16/2025 10:15 AM EDT 01/16/2025 10:15 AM EDT Narrative [facility] ClaimReturn[place]) - 01/19/2025 1:10 PM EDT INTERPRETIVE INFORMATION: SSA-52 (Ro52) (DANICA) Antibody, IgG 29 AU/mL or Less ............. Negative 30 - 40 AU/mL ................ Equivocal 41 AU/mL or Greater .......... Positive SSA-52 (Ro52) and/or SSA-60 (Ro60) antibodies are associated with a diagnosis of Sjogren syndrome, systemic lupus erythematosus (SLE), and systemic sclerosis. SSA-52 antibody overlaps significantly with the major SSc-related antibodies. SSA-52 (Ro52) antibody occurs frequently in patients with inflammatory myopathies, often in the presence of interstitial lung disease. REFERENCE INTERVAL: SSA-60 (Ro60) (DANICA) Antibody, IgG 29 AU/mL or Less ............. Negative 30 - 40 AU/mL ................ Equivocal 41 AU/mL or Greater .......... Positive INTERPRETIVE INFORMATION: SSB ([place]) (DANICA) Ab, IgG 29 AU/mL or Less ............. Negative 30 - 40 AU/mL ................ Equivocal 41 AU/mL or Greater .......... Positive SSB ([place]) antibody is seen in 50-60% of Sjogren syndrome cases and is specific if it is the only DANICA antibody present. 15-25% of patients with systemic lupus erythematosus (SLE) and 5-10% of patients with progressive systemic sclerosis (PSS) also have this antibody. Performed By: [facility] [address] [place] [address] Sheet Writer: El Duarte MD, PhD CLIA Number: [id number] May R Graeme TRANSPORTER DRIVER LAB BLOOD ORDERABLES Final Result Performing Organization Address City/[facility]/ZIP Co de Phone Number [facility] ([place]) [address] [place] [address] * ENAI (01/16/2025 10:15 AM EDT) Baker/COLD MILL INSPECTOR ([place]) Ab, IgG 2 0 - 19 Units 01/18/2025 2:39 PM EDT [facility] ([facility]) Blood Venous blood specimen / Unknown Venipuncture / Unknown 01/16/2025 10:15 AM EDT 01/16/2025 10:15 AM EDT Narrative [facility] ([facility]) - 01/18/2025 2:39 PM EDT INTERPRETIVE INFORMATION: Baker/COLD MILL INSPECTOR (DANICA) Antibody, IgG 19 Units or Less ............. Negative 20 to 39 Units ............... Weak Positive 40 to 80 Units ............... Moderate Positive 81 Units or greater .......... Strong Positive Baker/COLD MILL INSPECTOR antibodies are frequently seen in patients with mixed connective tissue disease (MCTD) and are also associated with other systemic autoimmune rheumatic diseases (SARDs) such as systemic lupus erythematosus (SLE), systemic sclerosis, and myositis. Antibodies targeting the Baker/COLD MILL INSPECTOR antigenic complex also recognize Baker antigens, therefore, the Baker antibody response must be considered when interpreting these results. Performed By: [employer] [address] [place] [address] Sheet Writer: El Duarte MD, PhD CLIA Number: [id number] may Graeme TRANSPORTER DRIVER LAB BLOOD ORDERABLES Final Result Performing Organization Address [facility]/ZIP Co de Phone Number [facility] ([place]) [address] [place] [address] * (ABNORMAL) CBC and Differential (01/16/2025 10:15 AM EDT) WBC Count 6.41 3.70 - 10.30 10*3/uL LAB HEMATOLOGY METHOD 01/16/2025 11:33 AM EDT [facility] RBC Count 3.88(L) 3.90 - 5.20 10*6/uL LAB HEMATOLOGY METHOD 01/16/2025 11:33 AM EDT [facility] HGB 10.0(L) 11.2 - 15.7 g/dL LAB HEMATOLOGY METHOD 01/16/2025 11:33 AM EDT [facility] HCT 33.6(L) 34.0 - 45.0 % LAB HEMATOLOGY METHOD 01/16/2025 11:33 AM EDT [facility] Platelet Count 277 155 - 369 10*3/uL LAB HEMATOLOGY METHOD 01/16/2025 11:33 AM EDT [facility] MCV 87 79 - 98 fL LAB HEMATOLOGY METHOD 01/16/2025 11:33 AM EDT [facility] MCH 25.8(L) 26.0 - 32.0 pg LAB HEMATOLOGY METHOD 01/16/2025 11:33 AM EDT [facility] MCHC 29.8(L) 30.7 - 35.5 g/dL LAB HEMATOLOGY METHOD 01/16/2025 11:33 AM EDT [facility] RDW 15.9(H) 11.5 - 14.5 % LAB HEMATOLOGY METHOD 01/16/2025 11:33 AM EDT [facility] MPV 9.6 8.8 - 12.5 fL LAB HEMATOLOGY METHOD 01/16/2025 11:33 AM EDT [facility] nRBC 0.0 <=0.0 per 100 WBCs LAB HEMATOLOGY METHOD 01/16/2025 11:33 AM EDT [facility] Differential Type Automated LAB HEMATOLOGY METHOD 01/16/2025 11:33 AM EDT [facility] Neutrophils % 61 % LAB HEMATOLOGY METHOD 01/16/2025 11:33 AM EDT [facility] Lymphocytes % 28 % LAB HEMATOLOGY METHOD 01/16/2025 11:33 AM EDT [facility] Monocytes % 8 % LAB HEMATOLOGY METHOD 01/16/2025 11:33 AM EDT [facility] Eosinophils % 1 % LAB HEMATOLOGY METHOD 01/16/2025 11:33 AM EDT [facility] Basophils % 1 % LAB HEMATOLOGY METHOD 01/16/2025 11:33 AM EDT [facility] Immature Granulocytes % 1 % LAB HEMATOLOGY METHOD 01/16/2025 11:33 AM EDT [facility] Neutrophils Absolute 3.95 1.60 - 6.10 10*3/uL LAB HEMATOLOGY METHOD 01/16/2025 11:33 AM EDT [facility] Lymphocytes Absolute 1.77 1.20 - 3.90 10*3/uL LAB HEMATOLOGY METHOD 01/16/2025 11:33 AM EDT [facility] Monocytes Absolute 0.50 0.30 - 0.90 10*3/uL LAB HEMATOLOGY METHOD 01/16/2025 11:33 AM EDT [facility] Eosinophils Absolute 0.09 0.00 - 0.50 10*3/uL LAB HEMATOLOGY METHOD 01/16/2025 11:33 AM EDT [facility] Basophils Absolute 0.04 0.00 - 0.10 10*3/uL LAB HEMATOLOGY METHOD 01/16/2025 11:33 AM EDT [facility] Immature Granulocytes Absolute 0.06 0.00 - 0.06 10*3/uL LAB HEMATOLOGY METHOD 01/16/2025 11:33 AM EDT [facility] Blood Venous blood specimen / Unknown Venipuncture / Unknown 01/16/2025 10:15 AM EDT 01/16/2025 10:15 AM EDT Narrative [facility] - 01/16/2025 11:33 AM EDT Therapeutic decision making should be based on absolute values, rather than percentages. May Graeme TRANSPORTER DRIVER LAB BLOOD ORDERABLES Final Result [facility] [address] [place] [address] * (ABNORMAL) C4 Complement (01/16/2025 10:15 AM EDT) C4 Complement 37(H) 13 - 36 mg/dL 01/16/2025 1:19 PM EDT [facility] Blood Venous blood specimen / Unknown Venipuncture / Unknown 01/16/2025 10:15 AM EDT 01/16/2025 10:15 AM EDT May R [facility] LAB BLOOD ORDERABLES Final Result [facility] [address] [place] [address] * C3 Complement (01/16/2025 10:15 AM EDT) C3 Complement 144 84 - 166 mg/dL 01/16/2025 1:19 PM EDT [facility] Blood Venous blood specimen / Unknown Venipuncture / Unknown 01/16/2025 10:15 AM EDT 01/16/2025 10:15 AM EDT May R [facility] LAB BLOOD ORDERABLES Final Result Performing Organization Address City/[facility]/[place] Co de Phone Number [facility] [address] [place] [address] * Double-Stranded DNA (dsDNA) Antibody, IgG by IFA (01/16/2025 10:15 AM EDT) Double-Strande d DNA (dsDNA) Ab IgG IFA <1:10 <1:10 01/18/2025 11:57 PM EDT [facility] ([place]) Blood Venous blood specimen / Unknown Venipuncture / Unknown 01/16/2025 10:15 AM EDT 01/16/2025 10:15 AM EDT Narrative [facility] ([place]) - 01/18/2025 11:57 PM EDT INTERPRETIVE INFORMATION: Double-Stranded DNA (dsDNA) Antibody, IgG by IFA (using Crithidia luciliae) Positivity for anti-double stranded DNA (anti-dsDNA) IgG antibody is a diagnostic criterion of systemic lupus erythematosus (SLE). The presence of the anti-dsDNA IgG antibody is identified by IFA titer (Crithidia luciliae indirect fluorescent test [SANJAY]). SANJAY is highly specific for SLE with a sensitivity of 50-60 percent. Some patients with early or inactive SLE may be positive for anti-dsDNA IgG by MASON but negative by SANJAY. If the SANJAY result is negative but the patient has a positive MASON and clinical suspicion remains, consider antinuclear antibody (GARRY) testing by IFA. Additional information and recommendations for testing may be found at [email or web address]. Performed By: [facility] [address] [place] [address] Sheet Writer: El Duarte MD, PhD CLIA Number: [id number] may Graeme TRANSPORTER DRIVER LAB BLOOD ORDERABLES Final Result [facility] [employer] ([place]) [address] [place] [address] * Antinuclear Antibody (GARRY), HEp-2, IgG (01/16/2025 10:15 AM EDT) GARRY INTERPRETIVE COMMENT See Note 01/18/2025 8:40 AM EDT [facility] [facility] ([place]) Anti Nuc Ab Screen <1:80 <1:80 01/18/2025 8:40 AM EDT [employer] ([place]) Blood Venous blood specimen / Unknown Venipuncture / Unknown 01/16/2025 10:15 AM EDT 01/16/2025 10:15 AM EDT Narrative [facility] [employer]) - 01/18/2025 8:40 AM EDT Clinical Interpretation: Antinuclear antibodies by IFA negative for homogeneous, speckled, nucleolar, centromere, and nuclear dots patterns. Cytoplasmic antibodies by IFA negative for reticular/AMA, discrete/GW body-like, polar/golgi-like, rods and rings, and cytoplasmic speckled patterns. INTERPRETIVE INFORMATION: GARRY Interpretive Comment Presence of antinuclear antibodies (GARRY) is a hallmark feature of systemic autoimmune rheumatic diseases (SARD). However, GARRY lacks diagnostic specificity and is associated with a variety of diseases (cancers, autoimmune, infectious, and inflammatory conditions) and may also occur in healthy individuals in varying prevalence. The lack of diagnostic specificity requires confirmation of positive GARRY by more specific serologic tests. GARRY (nuclear reactivity) positive patterns reported include centromere, homogeneous, nuclear dots, nucleolar, or speckled. GARRY (cytoplasmic reactivity) positive patterns reported include reticular/AMA, discrete/GW body-like, polar/golgi-like, cytoplasmic speckled or rods and rings. All positive patterns are reported to endpoint titers (1:2560). Reported patterns may help guide differential diagnosis, although they may not be specific for individual antibodies or diseases. Mitotic staining patterns not reported. Negative results do not necessarily rule out SARD. Performed By: [facility] [address] [place] [address] Sheet Writer: El Duarte MD, PhD CLIA Number: [id number] May R Graeme TRANSPORTER DRIVER LAB BLOOD ORDERABLES Final Result [email or web address] ([place]) [address] [place] [address] * RPR With Reflex to Titer (01/16/2025 10:15 AM EDT) [facility] Rapid Plasma Reagin Nonreactive Non Reactive 01/17/2025 12:43 AM EDT [facility] Blood Venous blood specimen / Unknown Venipuncture / Unknown 01/16/2025 10:15 AM EDT 01/16/2025 10:15 AM EDT May R [facility] LAB BLOOD ORDERABLES Final Result [facility] [address] [place] [address] * (ABNORMAL) Lupus Anticoagulant Profile (01/16/2025 10:15 AM EDT) [facility] Lupus Anticoagulant Result Lupus anticoagulant (LA) not detected by either LA-sensitive aPTT or dRVVT assays. If clinical suspicion for antiphospholipid syndrome is high, consider testing for antibodies against cardiolipin and [id number] n I. 01/17/2025 11:38 AM EDT [facility] aPTT Lupus Anticoagulant Sensitive 36.9 <=41.0 sec LAB COAGULATION METHOD 01/17/2025 11:38 AM EDT [facility] DRVVT Screen 52.4 sec LAB COAGULATION METHOD 01/17/2025 11:38 AM EDT [facility] DRVVT Screen Ratio 1.39(H) <1.20 LAB COAGULATION METHOD 01/17/2025 11:38 AM EDT [facility] DRVVT Confirmation 53.3 sec LAB COAGULATION METHOD 01/17/2025 11:38 AM EDT [facility] DRVVT Confirmation Ratio 1.53 LAB COAGULATION METHOD 01/17/2025 11:38 AM EDT [facility] DRVVT Screen Ratio/Confirmat ion Ratio 0.91 <1.20 LAB COAGULATION METHOD 01/17/2025 11:38 AM EDT [facility] Blood Venous blood specimen / Unknown Venipuncture / Unknown 01/16/2025 10:15 AM EDT 01/16/2025 10:15 AM EDT may Graeme TRANSPORTER DRIVER LAB BLOOD ORDERABLES Final Result Performing Organization Address [facility]/[place] Co de Phone Number [facility] [address] [place] [address] * Anticardiolipin IgG and IgM (01/16/2025 10:15 AM EDT) IgG Anticardiolipin 2.00 <20.00 GPL Units/mL 01/16/2025 3:19 PM EDT [facility] Anticardiolipin IgG Interpretation Negative Negative 01/16/2025 3:19 PM EDT [facility] IgM Anticardiolipin <1.50 <20.00 MPL Units/mL 01/16/2025 3:19 PM EDT [facility] Anticardiolipin IgM Interpretation Negative Negative 01/16/2025 3:19 PM EDT [facility] Blood Venous blood specimen / Unknown Venipuncture / Unknown 01/16/2025 10:15 AM EDT 01/16/2025 10:15 AM EDT may Graeme TRANSPORTER DRIVER LAB BLOOD ORDERABLES Final Result Performing Organization Address City/[facility]/ZIP Co de Phone Number [facility] [address] [place] [address] * Cardiolipin antibody, IgA (01/16/2025 10:15 AM EDT) Cardiolipin Antibody IgA <10 <=11 APL 01/19/2025 12:32 PM EDT [facility] ([place]) Blood Venous blood specimen / Unknown Venipuncture / Unknown 01/16/2025 10:15 AM EDT 01/16/2025 10:15 AM EDT Narrative [facility] ([place]) - 01/19/2025 12:32 PM EDT INTERPRETIVE INFORMATION: Cardiolipin Antibodies, IgA <=11 APL: Negative 12-19 APL: Indeterminate 20-80 APL: Low to Moderately Positive 81 APL or above: High Positive Performed By: [facility] [address] [place] [address] Sheet Writer: El Duarte MD, PhD CLIA Number: [id number] May Graeme [facility] BLOOD ORDERABLES Final Result Performing Organization Address City/[facility]/ZIP Co de Phone Number [facility] ([place]) [address] [place] [address] * Anti-Beta 2 Glycoprotein, IgG and IgM (01/16/2025 10:15 AM EDT) Pathologist [facility] Anti-Beta 2 Glycoprotein 1, IgG 2.2 <20.0 U/mL 01/16/2025 3:19 PM EDT [facility] Anti-Beta 2 Glycoprotein IgG Interpretation Negative Negative 01/16/2025 3:19 PM EDT [facility] Anti-Beta 2 Glycoprotein 1, IgM <1.5 <20.0 U/mL 01/16/2025 3:19 PM EDT [facility] Anti-Beta 2 Glycoprotein IgM Interpretation Negative Negative 01/16/2025 3:19 PM EDT [facility] Blood Venous blood specimen / Unknown Venipuncture / Unknown 01/16/2025 10:15 AM EDT 01/16/2025 10:15 AM EDT May Graeme [facility] BLOOD ORDERABLES Final Result [facility] [address] [place] [address] * Beta-2 Glycoprotein 1 Antibody, IgA (01/16/2025 10:15 AM EDT) [id number] 1, IgA Antibody <10 <=20 KARON 01/18/2025 4:33 AM EDT [facility] ([place]) Serum 01/16/2025 10:1 5 AM EDT 01/16/2025 10:15 AM EDT Narrative [facility] ([place]) - 01/18/2025 4:33 AM EDT Performed By: [facility] [address] [place] [address] Sheet Writer: El Duarte MD, PhD CLIA Number: [id number] May Graeme TRANSPORTER DRIVER LAB BLOOD ORDERABLES Final Result [facility] ([place]) [address] [place] [address] documented in this encounter Visit Diagnoses Diagnosis History of DVT (deep vein thrombosis)- Primary GARRY positive Polyarthralgia Pain in joint, multiple sites Bilateral hip pain Pain in joint, pelvic region and thigh Bilateral hip pain Pain in joint, pelvic region and thigh documented in this encounter Additional Health Concerns Assessment Noted Time A fall risk assessment has been complete d for the patient 01/16/2025 9:07 AM EDT A Body Mass Index follow-up plan has been documented for the patient 01/16/2025 11:01 AM EDT documented as of this encounter Care Teams Blow Pit Helper Relationship Specialty Start Date End Date Abby Phillip APRN [address] [place] [address] PCP - General 01/03/25 documented as of this encounter
--- OUTSIDE RECORDS SUMMARY | 2025-01-16 09:18 | XMS_ITS | Encounter Summary ---
Author Organization Healthcare Address [address] [place] [address] Care Team Providers Care Window Installation Subcontractor Name Role Phone Abby Phillip CRISTOFER Primary Care Provider [phone]- [phone] Encounter Details Date Type Department Care Team (Latest Contact Info) Description 01/16/2025 10:18 AM EDT - 01/16/2025 11:59 PM EDT [facility] [address], [address] [place] [phone] Bilateral hip pain Discharge Disposition: Home or [...] on 01/16/2025 10:53 AM May R Graeme MULTIMEDIA PROGRAMMER IMG XR PROCEDURES Final Res ult documented [...] documented as of this encounter Care Teams Window Installation Subcontractor Relationship Specialty Start Date End Date Abby Phillip APRN [address] [place] [address] PCP - General 01/03/25 documented as of this encounter
--- OUTSIDE RECORDS SUMMARY | 2025-03-08 13:41 | XMS_ITS | Continuity of Care Document ---
Author Organization [facility]. If a dditional information is needed, contact Health Information Management at [phone] [place] [address] Phone Care Team Providers Care Security Rep Name Role Phone Unavailable Unavailable Unavailable Unavailable [...] mouth Onset:25-Jun-2015 Dee Johnson Status:Acute Comments:Onset Date: Chest pain Onset:18-Mar-2015 Chalo Clark Status:Acute Comments:Onset Date: Abdominal pain Onset:18-Mar-2015 José Miguel Suero Status:Acute Comments:Onset Date: Chest pain Onset:18-Mar-2015 Curtis Lima Status:Acute Comments:Onset Date: Hypertensive disorder Onset:18-Mar-2015 José Miguel Suero Comments:Onset Date: Nausea and vomiting Onset:18-Mar-2015 José Miguel Cecilia Suero Status:Resolved Comments:Onset Date: Deep venous thrombosis Onset:13-Feb-2015 Pineda Perkins Comments:Onset Date: [id number] Acute non-ST segment elevati on myocardial infarction Onset:12-Feb-2015 Brian Suero Status:Acute Comments:Onset Date: Morbid obesity Onset:12-Feb-2015 Brian Suero Comments:Onset Date: Atypical chest pain Onset:11-Feb-2015 Zana [...] Once a day, 1 tablet Quantity:30 Sagealison Mtz Start:10-Mar-2022 Comments:80 MG Orally Once a day, 1 tablet Zetia;10 MG Orally Once a da y, 1 tablet Quantity:30 Sagealison Del Cid W Start:10-Mar-2022 Comments:10 MG Orally Once a day, 1 tablet carvedilol 12.5 MG Oral Tablet;12.5 MG Orally Twice a day, 1 tablet with food Quantity:60 Wendyu Nehemias W Start:27-Jan-2022 Comments:12.5 MG Orally Twice a day, 1 tablet with food ;30 MG ORAL Daily Start:17-Jan-2022 Comments:30 mg PO DAILY ;0.4 MG Q5M Start:17-Jan-2022 Comments:0.4 mg SUBLINGUAL Q5M As Needed for Chest Pain acetaminophen 325 MG / HYDRO codone bitartrate 5 MG Oral Tablet;1 TAB ORAL Q6H Start:24-Nov-2019 Comments:1 tab PO Q6H lidocaine 0.05 MG/MG Medicat ed Patch [Lidoderm];1 PATCH TOPICAL Daily Start:21-Feb-2019 Comments:1 patch TOPICAL DAILY ;30 MG ORAL Daily Start:24-Jun-2015 Comments:30 mg PO DAILY furosemide 40 MG Oral Tablet ;40 MG ORAL Daily Start:24-Jun-2015 Comments:40 mg PO DAILY acetaminophen 325 MG / HYDRO codone bitartrate 5 MG Oral Tablet;1 TAB ORAL Every 6 Hours as Needed Start:24-Jun-2015 Comments:1 tab PO Q6H PRN As Needed for Pain Lactobacillus acidophilus [Acidophilus] Capsule;1 ea ORAL Two Times a Day Start:20-Mar-2015 Status:Aborted Comments:1 ea PO BID Levaquin_[id number];750 MG ORAL Every 24 Hours Start:20-Mar-2015 Status:Aborted Comments:750 MG PO Q24 Zofran;4 MG ORAL Three Times a Day As Needed Start:20-Mar-2015 Status:Aborted Comments:4 MG PO TID PRN As Needed for Nausea Flagyl;500 MG ORAL Three Gume es a Day Start:20-Mar-2015 Status:Aborted Comments:500 MG PO TID Metoprolol Tartrate_METO25TA25-AOM;25 MG ORAL Two Times a Day Start:19-Mar-2015 Comments:25 mg PO BID Lopressor_METO25TA51-AOM;12. 5 MG ORAL Two Times a Day Start:14-Feb-2015 Status:Aborted Comments:12.5 MG PO BID Analgesic [place];325 MG ORAL D aily Start:14-Feb-2015 Comments:325 mg PO DAILY pantoprazole 40 MG Delayed R elease Oral Tablet;40 MG ORAL Daily Start:14-Feb-2015 Comments:40 mg PO DAILY ;75 MG ORAL Daily Start:14-Feb-2015 Comments:75 mg PO DAILY ;40 MG ORAL Daily Start:14-Feb-2015 Comments:40 mg PO DAILY lisinopril 40 mg tablet;40 M G ORAL Daily Start:14-Feb-2015 Comments:40 mg PO DAILY Lisinopril 20 MG Oral Tablet ;20 MG Orally Once a day, 1 tablet Quantity:30 Jimi Mtz Comments:20 MG Orally Once a day, 1 tablet Ibuprofen 600 MG Oral Tablet ;600 MG Orally Three times a day, 1 tablet with food or milk as needed Jimi Mtz Comments:600 MG Orally Three times a day, 1 tablet with food or milk as needed Furosemide 40 MG Oral Tablet ;40 MG [...] Quantity:60 Jimi Mtz Comments:5 MG Oral , B12;5000 MCG Sublingual , as directed Jimi Mtz Comments:5000 MCG Sublingual , as directed Social History Smoking Status Never smoked tobacco Recorded: 08-Jan-2020 Never smoked tobacco Recorded: 24-Nov-2019 Never smoked tobacco Recorded: 21-Feb-2019 Never smoked tobacco Never smoked tobacco Encounters 20-Jan-2019 Anay Suero (Attending) Juliann pre-admission 20-Aug-2018 08:00 Juliann
--- OUTSIDE RECORDS SUMMARY | 2025-03-08 13:43 | XMS_ITS | Encounter Summary ---
Author Organization [employer] ([place], [place], [place], [place], [place]) Address [address] [place] [address] Care Team Providers Care Customer Service Driver Name Role Phone Santosh Briones MD Primary Care Provider [phone] Santosh Briones MD Primary Care Provider Julius Cho MD Unavailable Lew Ross MD Unavailable Karlos Pringle PA-C Unavailable [phone] Encounter Details Date Type Department Care Team (Late st Contact Info) Description 12/14/2020 Transcribed Document [facility] [place] [address] [place] [address] ProviderAle MD [address] [place] [address] Social History Tobacco Use Types Packs/Day Years Used Date Smoking Tobacco: Never Assessed Comments Unknown Sex and Gender Information Value Date Recorded Sex Assigned at Female 03/19/2022 10:49 AM PLUG STITCHER Legal Sex Female 5:46 PM CDT Gender Identity Female 03/19/2022 10:49 AM PLUG STITCHER Sexual Orientation Not on file documented as [...] Source : Measured Height Entry Format : Rains Height, Feet : 5 ft(Converted to: 152 cm, 60 Inch) Height, Inches : 7 Inch(Converted to: 0 ft 7 Inch, 17.78 cm) Clinical Height : 170.18 cm Weight Source : Standing scale Weight Entry Format : Rains Clinical Dosing Weight : 116.82 kg Weight, Pounds : 257 lb Body Surface Area (BSA) : 2.25 m2 Body Mass Index : 40.3 kg/m2 (>HHI) [place] Body Weight : 61 kg PETROS HERNDON RN - 12/17/2020 10:31 EDT Health Histories Smoking Status : Never (less than 100 in lifetime; none in last 30 days) Smokeless Tobacco Status : Never Implant/Device Type, Pattern Hanger and Model : breast implants IVC filter rTu Barkley Rn - 12/14/2020 10:54 EDT Social [...] Tru Barkley Rn - 12/14/2020 10:55 EDT [place] Suicide Severity Rating Scale (C-SSRS) CSSRS Past [...] Info Legal Guardian : Spouse Support Person/Patient Webfed Offset Press Operator : Yes Support Person/Pt Rep Name : Jose Ramon Lorenzana - Support Person/Pt Rep Contact Information : [phone] Want Family/Rep/Phys Notified of Admit : No Tru Barkley Rn - 12/14/2020 10:55 EDT Emergency Contact #1 : Jose Ramon Lorenzana Emergency Contact #1 Emergency Contact #1 Relationship : Pérez GilViri - 12/19/2020 6:14 EDT Emergency Contact #2 : ` Emergency Contact #2 Phone Number : ` Emergency Contact #2 Relationship : ` Information Obtained From : Patient Primary Language : Vietnamese Communication Barrier : None Law Professor Needed : No Tru Barkley Rn - [...] Description 04/06/2025 9:00 AM EST Office Visit [facility] Cardiology [address] [place] [phone] [place] [address] [place] [address] [address] [place], [place] [id number] documented as of this encounter Visit Diagnoses Not on filedocumented in this encounter Care Teams Customer Service Driver Relationship Specialty Start Date End Date Santosh Briones MD [address] [place], [place] [id number] PCP - General General Internal Medicine 04/18/22 04/22/22 Santosh Briones MD [address] [place], [place] [id number] PCP - General General Internal Medicine 04/23/22 Julius Cho MD [address] [place] [address] Referring Physician Internal Medicine 04/23/22 Lew Ross MD [address] [facility] [address] [place], [place] [id number] Cardiology 08/13/23 Karlos Pringle PA-C [address] [facility], [facility] [address] [place] [address] Cardiology 11/23/23 documented as of this encounter
--- OUTSIDE RECORDS SUMMARY | 2025-03-08 13:43 | XMS_ITS | Encounter Summary ---
Author Organization [employer] ([place], [place], [place], [place], [place]) Address [address] [place] [address] Care Team Providers Care Home Care Liaison Name Role Phone Santosh Briones MD Primary Care Provider [phone] Santosh Briones MD Primary Care Provider [phone] Julius Cho MD Unavailable Lew Ross MD Unavailable Karlos Pringle PA-C Unavailable [phone] Encounter Details Date Type Department Care Team (Late st Contact Info) Description 12/19/2020 Transcribed Document [facility] [place] Family Medicine [address] [place] [address] ProviderAle MD [address] [place] [address] Social History Tobacco Use Types Packs/Day Years Used Date Smoking Tobacco: Never Assessed Comments Unknown Sex and Gender Information Value Date Recorded Sex Assigned at Female 03/19/2022 10:49 AM COMPRESSOR BATTERY PELLETS Legal Sex Female 5:46 PM CDT Gender Identity Female 03/19/2022 10:49 AM COMPRESSOR BATTERY PELLETS Sexual Orientation Not on file documented as [...] - 12/19/2020 7:49 EDT Electronically signed by [facility], [facility] Conversion Corn Miller Cerner at 08/22/2022 3:50 PM CDT documented in this encounter Plan of Treatment Upcoming Encounters Date Type Department Care Team (Late st Contact Info) Description 04/06/2025 9:00 AM EST Office Visit [facility] Cardiology [address] [place] [address] Lew Ross MD [address] [place] [address] [address] [place] [address] documented as of this encounter Visit Diagnoses Not on filedocumented in this encounter Care Teams Home Care Liaison Relationship Specialty Start Date End Date Santosh Briones MD [address] [facility] [place] [address] PCP - General General Internal Medicine 04/18/22 04/22/22 Santosh Briones MD [address] [place] [facility] [place] [address] PCP - General General Internal Medicine 04/23/22 Julius Cho MD [address] [address] Referring Physician Internal Medicine 04/23/22 Lew Ross MD [address] [facility] [address] [place] [address] Cardiology 08/13/23 Karlos Pringle PA-C [address] [place] [address] Cardiology 11/23/23 documented as of this encounter
--- OUTSIDE RECORDS SUMMARY | 2025-03-08 13:43 | XMS_ITS | Encounter Summary ---
Author Organization [employer] ([place], [place], [place], [place], [place]) Address [address] [place] [address] Care Team Providers Care Bus Cleaner Name Role Phone Santosh Briones MD Primary Care Provider [phone] Santosh Briones MD Primary Care Provider [phone] Julius Cho MD Unavailable Lew Ross MD Unavailable Karlos Pringle PA-C Unavailable [phone] Encounter Details Date Type Department Care Team (Late st Contact Info) Description 12/19/2020 Transcribed Document [facility] [place] Family Medicine [facility] [place] [address] ProviderAle MD [address] [place] [address] Social History Tobacco Use Types Packs/Day Years Used Date Smoking Tobacco: Never Assessed Comments Unknown Sex and Gender Information Value Date Recorded Sex Assigned at Female 03/19/2022 10:49 AM TRACK PRODUCTION ENGINEER Legal Sex Female 5:46 PM CDT Gender Identity Female 03/19/2022 10:49 AM TRACK PRODUCTION ENGINEER Sexual Orientation Not on file documented as of this encounter Miscellaneous Notes * Cerner Conversion Note - Historical ProviderMD - 12/19/2020 8:35 AM CDT [facility] Main OR PostOp Summary Primary Physician: MEE TUCKER, DPM-POD Finalized Date/Time: 12/19/20 12:16:40 Pt. Name: JANIS FIGUEREDO BILLIE DumontO.B./Sex: 1965 Female Med Rec #: [id number] Physician: MEE TUCKER, DPM-POD Financial #: [id number] Pt. Type: O Room/Bed: /9 Admit/Disch: 12/19/20 06:32:00 - Institution: [facility] Main OR PostOp Case Times Entry 1 In PACU II 12/19/20 11:10:00 Ready for PACU II 12/19/20 12:11:00 Discharge Discharge from PACU 12/19/20 12:11:00 II Last Modified By: SIOMARA ALLEN RN 12/19/20 12:16:39 [facility] Main OR PostOp Case Times Audit 12/19/20 12:16:39 Director Bioinformatics: [id number] Modifier: [id number] <+> 1 Ready for PACU II Discharge <+> 1 Discharge from PACU II Finalized By: SIOMARA ALLEN RN Document Signatures Signed By: SIOMARA ALLEN RN 12/19/20 12:16 Electronically signed by [facility] Conversion Manager Of Care Cerner at 08/22/2022 3:51 PM CDT documented in this encounter Plan of Treatment Upcoming Encounters Date Type Department Care Team (Late st Contact Info) Description 04/06/2025 9:00 AM EST Office Visit [facility] Cardiology [address] [place] [address] Lew Ross MD [address] [place] [address] [address] [place] [address] documented as of this encounter Visit Diagnoses Not on filedocumented in this encounter Care Teams Bus Cleaner Relationship Specialty Start Date End Date Santosh Briones MD [address] [facility] [place] [address] PCP - General General Internal Medicine 04/18/22 04/22/22 Santosh Briones MD [address] [facility] [place] [address] PCP - General General Internal Medicine 04/23/22 Julius Cho MD [address] [place] [address] Referring Physician Internal Medicine 04/23/22 Lew Ross MD [address] [facility] [address] [place] [address] Cardiology 08/13/23 Karlos Pringle PA-C [address] [place] [address] Cardiology 11/23/23 documented as of this encounter
--- OUTSIDE RECORDS SUMMARY | 2025-03-08 13:43 | XMS_ITS | Encounter Summary ---
Author Organization [employer] ([place], [place], [place], [place], [place]) Address [address] [place] [address] Care Team Providers Care Locker Room Supervisor Name Role Phone Santosh Briones MD Primary Care Provider [phone] aSntosh Briones MD Primary Care Provider [phone] Julius Cho MD Unavailable Lew Ross MD Unavailable Karlos Pringle PA-C Unavailable [phone] Encounter Details Date Type Department Care Team (Late st Contact Info) Description 12/19/2020 Transcribed Document [facility] [place] [address] [place] [address] ProviderAle MD [address] [place] [address] Social History Tobacco Use Types Packs/Day Years Used Date Smoking Tobacco: Never Assessed Comments Unknown Sex and Gender Information Value Date Recorded Sex Assigned at Female 03/19/2022 10:49 AM RAMP BOSS Legal Sex Female 5:46 PM CDT Gender Identity Female 03/19/2022 10:49 AM RAMP BOSS Sexual Orientation Not on file documented as of this encounter Miscellaneous Notes * Cerner Conversion Note - Historical MD Alex - 12/19/2020 11:50 AM CDT [facility] [place] [address] JANIS FIGUEREDO :1965 Visit Time:12/19/2020 What to [...] Comments Follow up Thursday as scheduled Where: [address] [place] [address] [address] [place] [address]- Medications What How Much When Instructions Next Dose acetaminophen-oxyCODONE (acetaminophen-oxyCODONE 325 mg-7.5 mg oral tablet) 1 Tablet(s) Oral Every 6 Hours as needed for for pain Pickup at [place] [address] apixaban (Eliquis 5 mg oral tablet) 1 Tablet(s) Oral Two Times A Day atorvastatin (atorvastatin 40 mg oral tablet) 1 Tablet(s) Oral Every Day cephalexin (Keflex 500 mg oral capsule) 1 Capsule(s) Oral Every 8 Hours Duration: 1 Day(s) Pickup at [place] [address] cyanocobalamin (Vitamin B12 1000 mcg oral tablet) [...] for as needed for nausea/vomiting Pickup at [place] [address] Pharmacy Information [place] [address]: [address] [facility] [phone] Take your medications faithfully. Do NOT skip [...] activities are safe for you. ??? Take hssp-kto-jkktimc and prescription medicines only as told by [...] provider. Document Revised: 04/23/2018 Document Reviewed: 12/04/2017 [employer] Patient Education ?? 2020 Ship It Bag Check. Emergency Awareness and Preventative Care STROKE is [...] Assistance with quitting is available by contacting [phone]-BVYYNOW. This is a free resource providing counseling, [...] was given the opportunity to ask questions. Patient/Decorator Hand Name: Patient/Decorator Hand Signature: Relationship to Patient: Clinician/Hospital Decorator Hand Signature: Date: documented in this encounter Plan of Treatment Upcoming Encounters Date Type Department Care Team (Late st Contact Info) Description 04/06/2025 9:00 AM EST Office Visit [facility] Cardiology [address] [place] [phone] [place] [address] [place] [address] [id number] documented as of this encounter Visit Diagnoses Not on filedocumented in this encounter Care Teams Locker Room Supervisor Relationship Specialty Start Date End Date Santosh Briones MD [address] [place] [address] PCP - General General Internal Medicine 04/18/22 04/22/22 Santosh Briones MD [address] [facility] [place] [address] PCP - General General Internal Medicine 04/23/22 Julius Cho MD [address] [place] [address] Referring Physician Internal Medicine 04/23/22 Lew Ross MD [address] [place] [address] [id number] Cardiology 08/13/23 Karlos Pringel PA-C [address] [facility], [facility] [address] [place] [address] Cardiology 11/23/23 documented as of this encounter
--- OUTSIDE RECORDS SUMMARY | 2025-03-08 13:43 | XMS_ITS | Clinical Summary ---
Author Organization [facility] Address [address] [place] [address] Phone Care Team Providers Care Chisel Trimmer Name Role Phone Chris Nunn MD [ ] Conditions or Problems Problem Name Problem Code Onset Date Status Entry Date Provider Comment Standard Description Annotate Hx of pulmonary embolism 891920172 (SNOMED CT) 08/25 Resolved 08/25 Natalia Herron H/O: pulmonary embolus Morbid obesity due to excess calories E66.01 (ICD-10-CM ) 08/25 Active 08/25 Natalia Herron Morbid (severe) obesity due to excess calories Benign Essential Hypertension 33317791 (SNOMED CT) 08/25 Active 08/25 Natalia Herron Benign hypertension Candidiasis of vulva and vagina, acute B37.31 (ICD-10-CM ) 09/20 Active 09/20 Natalia Herron Acute candidiasis of vulva and vagina Yeast infection 2726857 (SNOMED CT) 09/20 Inactive 09/20 Chris Nunn MD Mycosis Scleroderma 95472412 (SNOMED CT) 08/25 Active 08/25 Dania Faulkner Systemic sclerosis Personal history of allergy Bactrim 836835653 (SNOMED CT) 08/25 Active 08/25 Dania Faulkner Allergy to antibacterial drug senior living current use of anticoagulan ts 418536974 (SNOMED CT) 08/25 Active 08/25 Dania Faulkner Drug therapy finding Hx of pulmonary embolism 415083755 (SNOMED CT) 08/25 Removed 08/25 Dania Faulkner H/O: pulmonary embolus Presence of left artificial ankle joint 140010683 (SNOMED CT) 08/25 Active 08/25 Dania Faulkner Prosthetic total arthroplasty of ankle Morbid obesity 072563258 (SNOMED CT) 08/25 Inactive 08/25 Dania Faulkner Morbid obesity CAD (coronary artery disease) 34686222 (SNOMED CT) 08/25 Active 08/25 Dania Faulkner Coronary arteriosclerosis Hypertension 28841284 (SNOMED CT) 08/25 Inactive 08/25 Dania Faulkner Hypertensive disorder Chronic ulcer of left ankle, skin layer only 656989377 (SNOMED CT) 08/25 Active 08/25 Dania Faulkner Chronic ulcer of ankle Cellulitis of left lower limb 589806535 (SNOMED CT) 08/20 Active 08/20 Dania Faulkner Cellulitis of leg, excluding foot Chronic osteomyeliti s, left ankle 522385915 (SNOMED CT) 08/20 Active 08/20 Dania Faulkner Chronic osteomyelitis of ankle and/or foot Medications Medication Instructions Start Date Stop Date Generic Name NDC Provider MINOCYCLINE HCL 100 MG TABS Take 1 tablet by mouth once a day minocycline 01089436145 Chris Nunn MD Diflucan 200 mg tablet 1 tablet by mouth once a day as needed for yeast infection fluconazole 45496763391 Chris Nunn MD DOXYCYCLINE HYCLATE 100 MG CAPS 1 capsule by mouth once a day doxycycline hyclate 65207685039 Chris Nunn MD FOLIC ACID 400 MCG TABS Take 2 tablet by mouth once a day folic acid 58087703365 Margaret Bermudez ACETAMINOPHEN 500 MG TABS Take 1 tablet by mouth every six hours as needed acetaminophen 93904043147 Margaret Bermudez NATURAL VITAMIN D-3 125 MCG (5000 UT) TABS Take 1 tablet by mouth once a day cholecalciferol (vitamin d3) 59866554325 Margaret Bermudez ASPIRIN LOW DOSE 81 MG TBEC Take 1 tablet by mouth once a day aspirin 42113946598 Margaret Bermudez FUROSEMIDE 40 MG TABS Take 1 tablet by mouth once a day furosemide 99634966636 Margaret Bermudez apixaban (Eliquis) 5 mg Tab tablet Take 1 tablet by mouth twice a day Eliquis Margaret Bermudez PANTOPRAZOLE SODIUM 40 MG TBEC Take 1 tablet by mouth once a day pantoprazole 89047246150 Margaret Bermudez VITAMIN B-12 1000 MCG TABS Take 1 tablet by mouth once a day cyanocobalamin (vitamin b-12) 90565221695 Margaret Bermudez SACCHAROMYCES BOULARDII 250 MG CAPS Take 1 capsule (250 mg total) by mouth 2 (two) times daily for 7 days. saccharomyces boulardii 73757288259 QIE qieuser PANTOPRAZOLE SODIUM 40 MG TBEC Take 1 tablet (40 mg total) by mouth daily. pantoprazole 39464591221 QIE qieuser FUROSEMIDE 40 MG TABS Take 1 tablet (40 mg total) by mouth daily. furosemide 67394858859 QIE qieuser FOLIC ACID 400 MCG TABS Take 2 tablets (800 mcg total) by mouth daily. folic acid 95481516154 QIE qieuser VITAMIN B-12 1000 MCG TABS Take 1 tablet (1,000 mcg total) by mouth daily. cyanocobalamin (vitamin b-12) 06590464326 QIE qieuser NATURAL VITAMIN D-3 125 MCG (5000 UT) TABS Take 1 tablet (5,000 Units total) by mouth daily. cholecalciferol (vitamin d3) 12726293196 QIE qieuser ASPIRIN LOW DOSE 81 MG TBEC Take 1 tablet (81 mg total) by mouth daily. aspirin 19036921773 QIE [employer]ieuser apixaban (Eliquis) 5 mg Tab [...] down for the next 30 min.. alendronate 84994343888 QIE qieuser ACETAMINOPHEN 500 MG TABS Take 1 tablet (500 mg total) by mouth every 6 (six) hours as needed for up to 10 days. acetaminophen 48799347729 QIE qieuser Cubicin RF 500 mg intravenous solution 500mg IV Q24hrs/ OPAT daptomycin 19349949045 Jasmin Proctor RN CEFTRIAXONE SODIUM 2 GM SOLR 2gm IV Q24hrs/ OPAT ceftriaxone 28967380855 Jasmin Proctor RN Medications Administered No information [...] Procedures Code Procedure Name Date Entry Date CPT-67926 CMP E4627c,[id number] CBC with Differential 2023 CPT-33833 C- reactive protein CPT-37126 Sedimentation Rate (ESR) 202 08/10/07 CPT-coral Change [...]
--- OUTSIDE RECORDS SUMMARY | 2025-03-08 13:43 | XMS_ITS | Encounter Summary ---
Author Organization [employer] ([place], [place], [place], [place], [place]) Address [address] [place] [address] Care Team Providers Care Fleet Sales Manager Name Role Phone Santosh Briones MD Primary Care Provider [phone] Santosh Briones MD Primary Care Provider [phone] Julius Cho MD Unavailable Lew Ross MD Unavailable Karlos Pringle PA-C Unavailable [phone] Encounter Details Date Type Department Care Team (Late st Contact Info) Description 12/19/2020 Transcribed Document [facility] [place] Family Medicine [address] [place] [address] ProviderAle MD [address] [place] [address] Social History Tobacco Use Types Packs/Day Years Used Date Smoking Tobacco: Never Assessed Comments Unknown Sex and Gender Information Value Date Recorded Sex Assigned at Female 03/19/2022 10:49 AM STEELER Legal Sex Female 5:46 PM CDT Gender Identity Female 03/19/2022 10:49 AM STEELER Sexual Orientation Not on file documented as of this encounter Miscellaneous Notes * Cerner Conversion Note - Historical ProviderMD - 12/19/2020 3:48 PM CDT DATE OF PROCEDURE: 12/19/2020 1965 SURGEON: Massimo Blake DPM TEACHING AIDE: None. PREOPERATIVE DIAGNOSES: Right Achilles tendon tear; [...] nylon 2-0, Vicryl 2-0, Arthrex anchors x4. Linden drain. Graft Info: We used a 2 [...] We will continue to follow this patient. /[id number] Keys YONG Weston/JALEEL / BMF / MODL /[id number] Electronically signed by Everardo, [facility] Conversion Cooler Room Worker Cerner at 08/22/2022 4:10 PM CDT documented in this encounter Plan of Treatment Upcoming Encounters Date Type Department Care Team (Late st Contact Info) Description 04/06/2025 9:00 AM EST Office Visit [facility] Cardiology [address] [place], [place] [phone] Lew Ross MD [address] [place] [address] [address] [place], [place] [id number] documented as of this encounter Visit Diagnoses Not on filedocumented in this encounter Care Teams Fleet Sales Manager Relationship Specialty Start Date End Date Santosh Briones MD [address] [place], [place] [id number] PCP - General General Internal Medicine 04/18/22 04/22/22 Santosh Briones MD [address] [place], [place] [address] PCP - General General Internal Medicine 04/23/22 Julius Cho MD [address] [address] Referring Physician Internal Medicine 04/23/22 Lew Ross MD [address] [place] [address] [place], [place] [address] Cardiology 08/13/23 Karlos Pringle PA-C [address] [facility] [place] [address] Cardiology 11/23/23 documented as of this encounter
--- OUTSIDE RECORDS SUMMARY | 2025-03-08 13:43 | XMS_ITS | Encounter Summary ---
Author Organization [employer] ([place], [place], [place], [place], [place]) Address [address] [place] [address] Care Team Providers Care Clipper And Turner Name Role Phone Santosh Briones MD Primary Care Provider [phone] Santosh Briones MD Primary Care Provider [phone] Julius Cho MD Unavailable Lew Ross MD Unavailable Karlos Pringle PA-C Unavailable [phone] Encounter Details Date Type Department Care Team (Late st Contact Info) Description 12/19/2020 Transcribed Document [facility] [place] Family Medicine [facility] [place] [address] ProviderAle MD [address] [place] [address] Social History Tobacco Use Types Packs/Day Years Used Date Smoking Tobacco: Never Assessed Comments Unknown Sex and Gender Information Value Date Recorded Sex Assigned at Female 03/19/2022 10:49 AM VOCATIONAL TEACHER Legal Sex Female 5:46 PM CDT Gender Identity Female 03/19/2022 10:49 AM VOCATIONAL TEACHER Sexual Orientation Not on file documented as of this encounter Miscellaneous Notes * Cerner Conversion Note - Historical ProviderMD - 12/19/2020 8:35 AM CDT [facility] Main OR IntraOp Summary Primary Physician: MEE TUCKER, DPM-POD Finalized Date/Time: 12/21/20 10:05:58 Pt. Name: JANIS FIGUEREDO BILLIE Trotter./Sex: 1965 Female Med Rec #: [id number] Physician: MEE TUCKER, DPM-POD Financial #: [id number] Pt. Type: O Room/Bed: /9 Admit/Disch: 12/19/20 06:32:00 - 12/19/20 12:11:00 Institution: [facility] IntraOp Case Attendance Entry 1 Entry 2 Entry 3 Case Attendee MEE TUCKER, MUMTAZ RODRÍGUEZ MD-YVETTE ROSEN APRN DPM-POD Role Performed Surgeon/Proceduralist, Anesthesiologist of R&D LAB TECHNICIAN/Nurse Thread Pulling Machine Attendant First Record Time In 12/19/20 07:55:00 12/19/20 [...] Rn Poe, Kali, RN Baker, Amanda S, Glass Installer Role Performed Edging Catcher, First Edging Catcher, Second Scrub, First Time In 12/19/20 07:55:00 [...] Case Attendee ROBERTO BELCHER RN Role Performed Edging Catcher, First Time In 12/19/20 09:45:00 Time Out 12/19/20 10:03:00 Procedure Achilles Tendon Repair(Right), Bone Spur Excision Other Attendee BREAK Superficial Wound Closed By: Last Modified By: Julienne Atkins Rn 12/19/20 10:28:51 [facility] IntraOp Case Attendance Audit 12/19/20 10:28:51 Mascara Molder: [id number] Modifier: [id number] <+> Time Out 1 <*> Procedure [...] Tendon Repair(Right), Bone Spur Excision 12/19/20 10:03:51 Mascara Molder: [id number] Modifier: [id number] <+> Time Out 7 <*> Procedure Achilles Tendon Repair(Right), Bone Spur Excision 12/19/20 09:47:32 Mascara Molder: [id number] Modifier: [id number] 1 <*> Procedure Achilles Tendon Repair(Right), Bone [...] Procedure <+> 7 Other Attendee 12/19/20 07:58:46 Mascara Molder: [id number] Modifier: [id number] <+> 6 Procedure [facility] IntraOp Case Times Entry 1 Patient In Room Time 12/19/20 07:55:00 Out Room Time 12/19/20 10:23:00 Anesthesia Start Time 12/19/20 07:55:00 Stop Time 12/19/20 10:23:00 Surgery / Procedure Times Start Time 12/19/20 08:35:00 Stop Time 12/19/20 10:16:00 Last Modified By: Julienne Atkins Rn 12/19/20 10:28:41 [facility] IntraOp Case Times Audit 12/19/20 10:28:41 Mascara Molder: [id number] Modifier: [id number] <+> 1 Out Room Time <+> 1 Stop Time <+> 1 Stop Time 12/19/20 08:37:30 Mascara Molder: [id number] Modifier: [id number] <+> 1 Start Time [facility] IntraOp Cautery Entry 1 ESU Identification Cautery Type Monopolar ESU ID Number [id number] ID Type Hospital Number Cautery Settings Cut [...] Modified By: Julienne Atkins Rn 12/19/20 07:59:56 [facility] IntraOp Communication Entry 1 Communication To Family/Significant other Communication By Domingo Conklin RN Date and Time 12/19/20 08:37:00 Last Modified By: Julienne Atkins Rn 12/19/20 08:37:40 [facility] IntraOp Counts Verification Entry 1 Procedure Achilles Tendon Repair(Right), Bone Spur Excision Count Info Count Type Sponge, Sharps Counts Verification Baseline/pre-procedure Sequence Count Results Not Applicable Counts Performed By Count Performed By eLtitia Washington (Scrub) Glass Installer Count Performed By Domingo Conklin RN (RN) Last Modified By: Julienne Atkins Rn 12/19/20 08:00:18 [facility] IntraOp Counts Final Entry 1 Procedure Achilles Tendon Repair(Right), Bone Spur Excision Final Count Info Count Type Sponge, Sharps Counts Verification Skin Closure/end of Sequence procedure Count Results Correct, surgeon notified Counts Performed By Count Performed By Letitia Washington (Scrub) Glass Installer Count Performed By Julienne Atkins Rn (RN) Last Modified By: Julienne Atkins Rn 12/19/20 10:05:43 [facility] IntraOp Cultures and Spec Summary Entry 1 Cultrures and Specimens Specimen Ordered: Yes Test(s) Routine/Path-Lab Requested/Final Disposition Last Modified By: Julienne Atkins Rn 12/19/20 09:32:55 General Comments: A. RIGHT FOOT BONE [facility] IntraOp Delays Entry 1 Delay Reason Patient, other (document in comment) Duration 25 Minute(s) Comment PATIENT GETTING NERVE BLOCK Last Modified By: Julienne Atkins Rn 12/19/20 08:00:49 [facility] IntraOp Departure from OR Entry 1 Integumentary Assessment Integumentary WDL Assessment WDL Transfer/Handoff Transfer to PACU Phase I Handoff Method Bedside/Face to face, Phone call Post-op Transport Stretcher/Gurney Via Patient Transport YVETTE CEJA, Accompanied by Wilbert CLEVELAND Tracy R, Viri, Domingo Conklin RN Last Modified By: Julienne Atkins Rn 12/19/20 08:01:04 [facility] IntraOp Drains and Tubes Entry 1 Device Type Colon Size 1/4 Drain/Tube Activity Inserted Drain/Tube Suction Manor Drain/Tube Drainage Red Device Location RIGHT LOWER LEG Method of Drainage Manor Last Modified By: Julienne Atkins Rn 12/19/20 08:49:09 [facility] IntraOp Dressing and Packing Entry 1 Type Dressing Location RIGHT FOOT Wound Dressing Item 4x4's, Kerlix/Janie, Johnnie, Other Applied By MEE TUCKER, DPM-POD Other Comments SILVER DRESSING Last Modified By: Julienne Atkins Rn 12/19/20 10:05:02 [facility] IntraOp Dressing and Packing Audit 12/19/20 10:05:02 Mascara Molder: [id number] Modifier: [id number] <*> Wound Dressing Item 4x4's, Kerlix/Janie, Johnnie 1 <+> Applied By 1 <*> Other Comments ACTICOAT [facility] IntraOp Fire Risk Assessment Entry 1 Fire [...] Modified By: Julienne Atkins Rn 12/19/20 08:01:48 [facility] IntraOp General Case Violent Crimes Detective 1 Case Information OR OR 02 [facility] Case Level 1 Room Verified Yes Wound Class I - Clean Specialty Podiatry Anesthesia Type General ASA Class 3 Diagnosis Preop Diagnosis RIGHT ACHILLES INJURY Postop Same As Preop No Postop Diagnosis SEE MD NOTES Last Modified By: Julienne Atkins Rn 12/19/20 08:02:15 [facility] IntraOp Implant Log Entry 1 Entry 2 Entry 3 Type Tissue Implant Implant (Synthetic) Implant (Synthetic) (Biologic) Implant Log Implant Type Hardware Hardware Tissue Implant Type Tissue Implant IMP STRAVIX [id number] ARTHREX ANCHOR KT IB PLUS BC W/CC FT Identification [id number] Description Implant Quantity 1 2 1 Implant Site RIGHT ANKLE RIGHT FOOT RIGHT FOOT Implant Identification Model Number Implant 04257 Identification Serial Number Implant [id number] Identification Lot Number Implant [employer] ARTHREX Arthrex Identification Lean Leader Name: Implant [id number] Identification Catalog Number Implant Size Implant Has an Yes Yes Yes Expiration Date Implant Expiration 04/13/23 08/01/22 07/01/22 Date Wasted Radioactive Material Time Implanted Tissue Implant Continue for Tissue Implant Documentation Tissue Identification Number Graft Prep Per Yes Lean Leader Instructions: Tissue Preparation N/A Method: Reconstitution Solution: Reconstitution Solution Lot Number Reconstitution Solution Expiration Date: Thawing Solution Thawing Solution Lot Number Thawing Solution Expiration Date Preparation Materials, Other Preparation Materials, Other Lot Number Preparation Materials, Other Expiration Date MEE Ash, Prepared/Processed DPM-POD By Lean Leader Yes Paperwork Completed Implant Type Comment Last Modified By: Julienne Atkins Rn Compton, Tracy R, Rn Compton, Tracy R, Rn 12/19/20 09:32:32 12/19/20 09:32:32 12/19/20 09:32:32 Entry 4 Type Implant (Synthetic) Implant Log Implant Type Tissue Implant Type Implant ARTHREX SUTURE TAPE REF Identification [id number] Description Implant Quantity 1 Implant Site OPSITE Implant Identification Model Number Implant Identification Serial Number Implant [id number] Identification Lot Number Implant Identification Lean Leader Name: Implant Identification Catalog Number Implant Size Implant Has an Yes Expiration Date Implant Expiration 08/31/25 Date Wasted Radioactive Material Time Implanted Tissue Implant Continue for Tissue Implant Documentation Tissue Identification Number Graft Prep Per Lean Leader Instructions: Tissue Preparation Method: Reconstitution Solution: Reconstitution Solution Lot Number Reconstitution Solution Expiration Date: Thawing Solution Thawing Solution Lot Number Thawing Solution Expiration Date Preparation Materials, Other Preparation Materials, Other Lot Number Preparation Materials, Other Expiration Date Tissue Prepared/Processed By Lean Leader Paperwork Completed Implant Type Comment Last Modified By: Julienne Atkins Rn 12/19/20 10:03:35 [facility] IntraOp Implant Log Audit 12/19/20 10:03:35 Mascara Molder: [id number] Modifier: [id number] <+> 4 Implant Identification Description <+> 4 Implant Identification Lot Number <+> 4 Implant Expiration Date <+> 4 Implant Site <+> 4 Implant Quantity <+> 4 Implant Has an Expiration Date <+> 4 Type [facility] IntraOp Intraoperative Assessment Entry 1 Handoff Method [...] Modified By: Julienne Atkins Rn 12/19/20 08:03:12 [facility] IntraOp Intraoperative Equipment Entry 1 Type Equipment Equipment Equipment Yumi Suction System ID Number [id number] Setting ON Intraop Monitoring Blood Pressure Non-Invasive BP Device Source Antiembolic Devices Scopes Photo/Video Documentation Last Modified By: Julienne Atkins Rn 12/19/20 08:03:54 [facility] IntraOp Medication Admin Entry 1 Medication/Irrigant LAILA IRR NACL 0.9PCT 2000ML [id number] Time Administered 12/19/20 08:35:00 Route of IRRIGATION Administration Dose Administered By MEE TUCKER, SHAHRAMM-POD Procedure Irrigation Last Modified By: Julienne Atkins Rn 12/19/20 09:04:22 [facility] IntraOp Medication Admin Audit 12/19/20 09:04:22 Mascara Molder: [id number] Modifier: [id number] 1 <*> Medication/Irrigant LAILA IRR NACL 0.9PCT 2000ML [id number] 1 <+> Time Administered [facility] IntraOp Patient Positioning Entry 1 Procedure Achilles [...] Modified By: Julienne Atkins Rn 12/19/20 08:05:17 [facility] IntraOp Sign In Entry 1 Patient, Site, [...] Modified By: Julienne Atkins Rn 12/19/20 08:05:29 [facility] IntraOp Sign Out Entry 1 RN Confirmation [...] Modified By: Julienne Atkins Rn 12/19/20 10:28:48 [facility] IntraOp Sign Out Audit 12/19/20 10:28:48 Mascara Molder: [id number] Modifier: [id number] <+> 1 RN Sign Out Signature Date/Time [facility] IntraOp Skin Prep Entry 1 Procedure Achilles Tendon Repair(Right), Bone Spur Excision Prescribed Yes Pre-Surgical Prep Completed Prep Area RIGHT FOOT AND LOWER LEG TO KNEE Intraop Prep Integumentary WDL Assessment WDL Prep Agents Chloraprep Prep by Julienne Atkins Rn Hair Removal Methods No hair removal performed Last Modified By: Julienne Atkins Rn 12/19/20 08:08:22 [facility] IntraOp Surgical Procedures Entry 1 Entry 2 [...] Tracy R, Rn 12/19/20 10:28:50 12/19/20 10:28:50 [facility] IntraOp Surgical Procedures Audit 12/19/20 10:28:50 Mascara Molder: [id number] Modifier: [id number] <+> 1 Stop <+> 2 Stop [facility] IntraOp Temp Regulation Devices Entry 1 Temp Regulation Temperature Forced Air Warming Regulation Device device, Warm blankets Temperature 899459 Regulation Device Serial/Unit Number Temperature Upper body Regulation Site Temperature Device on Setting Temperature YVETTE CEJA APRN Regulation Device Applied by Last Modified By: Julienne Atkins Rn 12/19/20 08:39:43 [facility] IntraOP Time Out Entry 1 Procedure to [...] Modified By: Julienne Atkins Rn 12/19/20 08:38:12 [facility] IntraOp Tourniquet Entry 1 Type Pneumatic Serial/Unit Number [id number] Setting 300 mmHg Pheumatic Yes Tourniquet Checked Per Protocol Placement Thigh, right upper Skin Protection - Yes Padded Under Cuff Applied By Julienne Atkins Rn Removed By MEE TUCKER DPM-POD Times Start Time 12/19/20 08:34:00 Stop Time 12/19/20 10:15:00 Total Time 101 calculated manually (Mins) Last Modified By: Julienne Atkins Rn 12/19/20 10:16:00 [facility] IntraOp Tourniquet Audit 12/19/20 10:16:00 Mascara Molder: [id number] Modifier: [id number] <+> 1 Total Time calculated manually (Mins) [...] Description 04/06/2025 9:00 AM EST Office Visit [facility] Cardiology [address] [place] [address] [place] [address] [place] [address] [address] [place], [place] [id number] documented as of this encounter Visit Diagnoses Not on filedocumented in this encounter Care Teams Clipper And Turner Relationship Specialty Start Date End Date Santosh Briones MD [address] [place], [place] [id number] PCP - General General Internal Medicine 04/18/22 04/22/22 Santosh Briones MD [address] [place], [place] [id number] PCP - General General Internal Medicine 04/23/22 Julius Cho MD [address] [place] [address] Referring Physician Internal Medicine 04/23/22 Lew Ross MD [address] [place] [address] [address] [place], [place] [id number] Cardiology 08/13/23 Karlos Pringle PA-C [address] [facility], [facility] [address] [place] [address] Cardiology 11/23/23 documented as of this encounter
--- OUTSIDE RECORDS SUMMARY | 2025-03-08 13:43 | XMS_ITS | Encounter Summary ---
Author Organization [employer] ([place], [place], [place], [place], [place]) Address [address] [place] [address] Care Team Providers Care Flyer Maker Name Role Phone Santosh Briones MD Primary Care Provider [phone] Santosh Briones MD Primary Care Provider [phone] Julius Cho MD Unavailable Lew Ross MD Unavailable Karlos Pringle PA-C Unavailable [phone] Encounter Details Date Type Department Care Team (Late st Contact Info) Description 12/19/2020 Transcribed Document [facility] [place] Family Medicine [facility] [place] [address] ProviderAle MD [address] [place] [address] Social History Tobacco Use Types Packs/Day Years Used Date Smoking Tobacco: Never Assessed Comments Unknown Sex and Gender Information Value Date Recorded Sex Assigned at Female 03/19/2022 10:49 AM HEALTHCARE SPECIALIST Legal Sex Female 5:46 PM CDT Gender Identity Female 03/19/2022 10:49 AM HEALTHCARE SPECIALIST Sexual Orientation Not on file documented as of this encounter Miscellaneous Notes * Cerner Conversion Note - Historical ProviderMD - 12/19/2020 8:35 AM CDT [facility] Main OR PACU Summary Primary Physician: MEE TUCKER, DPM-POD Finalized Date/Time: 12/21/20 20:53:34 Pt. Name: JANIS FIGUEREDO BILLIE DumontO.B./Sex: 1965 Female Med Rec #: [id number] Physician: MEE TUCKER, DPM-POD Financial #: [id number] Pt. Type: O Room/Bed: /9 Admit/Disch: 12/19/20 06:32:00 - 12/19/20 12:11:00 Institution: [facility] Main OR PACU I Case Times Entry 1 In PACU I 12/19/20 10:25:00 Ready for PACU 12/19/20 11:05:00 Discharge Discharge from PACU 12/19/20 11:08:00 I Last Modified By: Sunshine Rowland RN-PATIENT CARE BEDSIDE NON-EXEMPT 12/19/20 11:55:39 [facility] Main OR PACU Acuity Entry 1 Start Time 12/19/20 11:05:00 Stop Time 12/19/20 11:08:00 Acuity Level [facility] PACU Acuity I Last Modified By: Letitia Dugan, Nurse Keno Clerk 12/21/20 20:53:32 [facility] Main OR PACU Acuity Audit 12/21/20 20:53:32 Distribution Field Engineer: [id number] Modifier: [id number] 1 <*> Start Time 12/19/20 10:25:00 Finalized By: Letitia Dguan, Nurse Equal Employment Opportunity Officer Signatures Signed By: Sunshine Rowland RN-PATIENT CARE BEDSIDE NON-EXEMPT 12/19/20 11:55 Letitia Dugan, Nurse Keno Clerk 12/21/20 20:53 Unfinalized History Date/Time Username Reason for Unfinalizing Freetext Reason for Unfinalizing 12/21/20 20:53 [id number] Correct Billing Electronically signed by Everardo [facility] Conversion Seaming Inspector Cerner at 08/22/2022 3:52 PM CDT documented in this encounter Plan of Treatment Upcoming Encounters Date Type Department Care Team (Late st Contact Info) Description 04/06/2025 9:00 AM EST Office Visit [facility] Cardiology [address] [place] [address] Lew Ross MD [address] [place] [address] [address] [place] [address] documented as of this encounter Visit Diagnoses Not on filedocumented in this encounter Care Teams Flyer Maker Relationship Specialty Start Date End Date Santosh Briones MD [address] [place], [place] [id number] PCP - General General Internal Medicine 04/18/22 04/22/22 Santosh Briones MD [address] [facility] [address] [place], [place] [address] PCP - General General Internal Medicine 04/23/22 Julius Cho MD [address] [address] Referring Physician Internal Medicine 04/23/22 Lew Ross MD [address] [facility] [address] [place], [place] [address] Cardiology 08/13/23 Karlos Pringle PA-C [address] [place] [address], [facility] [address] [place] [address] Cardiology 11/23/23 documented as of this encounter
--- OUTSIDE RECORDS SUMMARY | 2025-03-08 13:43 | XMS_ITS | Encounter Summary ---
Author Organization [employer] ([place], [place], [place], [place], [place]) Address [address] [place] [address] Care Team Providers Care Jig And Fixture Builder Name Role Phone Santosh Briones MD Primary Care Provider [phone] Santosh Briones MD Primary Care Provider [phone] Julius Cho MD Unavailable Lew Ross MD Unavailable Karlos Pringle PA-C Unavailable [phone] Encounter Details Date Type Department Care Team (Late st Contact Info) Description 12/19/2020 Transcribed Document [facility] [place] Family Medicine [facility] [place] [address] ProviderAle MD [address] [place] [address] Social History Tobacco Use Types Packs/Day Years Used Date Smoking Tobacco: Never Assessed Comments Unknown Sex and Gender Information Value Date Recorded Sex Assigned at Female 03/19/2022 10:49 AM NEUROLOGY TECH Legal Sex Female 5:46 PM CDT Gender Identity Female 03/19/2022 10:49 AM NEUROLOGY TECH Sexual Orientation Not on file documented as of this encounter Miscellaneous Notes * Cerner Conversion Note - Historical ProviderMD - 12/19/2020 7:30 AM CDT [facility] Main OR Preop Summary Primary Physician: MEE TUCKER, DPM-POD Finalized Date/Time: 12/19/20 07:52:13 Pt. Name: JANIS FIGUEREDO BILLIE DumontO.B./Sex: 1965 Female Med Rec #: [id number] Physician: MEE TUCKER, DPM-POD Financial #: [id number] Pt. Type: O Room/Bed: /9 Admit/Disch: 12/19/20 06:32:00 - Institution: [facility] PreOp Case Times Entry 1 In Preop 12/19/20 05:50:00 Ready for Holding n/a Room Patient Ready for 12/19/20 07:48:00 Surgery Patient Out of Preop 12/19/20 07:52:00 Patient Out of n/a Holding Room Last Modified By: Pérez Gil Rn 12/19/20 07:52:11 [facility] PreOp Case Times Audit 12/19/20 07:52:11 Voice Over Announcer: [id number] Modifier: [id number] <+> 1 Patient Out of Preop <+> 1 Patient Ready for Surgery Finalized By: Pérez Gil, Rn Document Signatures Signed By: Pérez Gil Rn 12/19/20 07:52 Electronically signed by Everardo [facility] Conversion Loose Hand Packer Cerner at 08/22/2022 3:49 PM CDT documented in this encounter Plan of Treatment Upcoming Encounters Date Type Department Care Team (Late st Contact Info) Description 04/06/2025 9:00 AM EST Office Visit [facility] Cardiology [address] [place] [address] Lew Ross MD [address] [place] [address] [address] [place] [address] documented as of this encounter Visit Diagnoses Not on filedocumented in this encounter Care Teams Jig And Fixture Builder Relationship Specialty Start Date End Date Santosh Briones MD [address] [facility] [place] [address] PCP - General General Internal Medicine 04/18/22 04/22/22 Santosh Briones MD [address] [facility] [place] [address] PCP - General General Internal Medicine 04/23/22 Julius Cho MD [address] [place] [address] Referring Physician Internal Medicine 04/23/22 Lew Ross MD [address] [facility] [address] [place] [address] Cardiology 08/13/23 Karlos Pringle PA-C [address] [facility], [facility] [address] [place] [address] Cardiology 11/23/23 documented as of this encounter
--- OUTSIDE RECORDS SUMMARY | 2025-03-08 13:43 | XMS_ITS | Encounter Summary ---
Author Organization [employer] ([place], [place], [place], [place], [place]) Address [address] [place] [address] Care Team Providers Care Dye Mixer Name Role Phone Santosh Briones MD Primary Care Provider [phone] Santosh Briones MD Primary Care Provider [phone] Julius Cho MD Unavailable Lew Ross MD Unavailable Karlos Pringle PA-C Unavailable [phone] Encounter Details Date Type Department Care Team (Late st Contact Info) Description 12/19/2020 Transcribed Document [facility] Family Medicine [facility] [place] [address] ProviderAle MD [address] [place] [address] Social History Tobacco Use Types Packs/Day Years Used Date Smoking Tobacco: Never Assessed Comments Unknown Sex and Gender Information Value Date Recorded Sex Assigned at Female 03/19/2022 10:49 AM DENTAL ASSISTANT Legal Sex Female 5:46 PM CDT Gender Identity Female 03/19/2022 10:49 AM DENTAL ASSISTANT Sexual Orientation Not on file documented [...] activities are safe for you. ??? Take pzlf-hnu-myycpxt and prescription medicines only as told by [...] provider. Document Revised: 04/23/2018 Document Reviewed: 12/04/2017 [employer] Patient Education ? 2019 [employer] documented in this encounter Plan of Treatment Upcoming Encounters Date Type Department Care Team (Late st Contact Info) Description 04/06/2025 9:00 AM EST Office Visit [facility] Cardiology [address] [place] [address] [place] [address] [place] [address] [address] [place] [address] documented as of this encounter Visit Diagnoses Not on filedocumented in this encounter Care Teams Dye Mixer Relationship Specialty Start Date End Date Santosh Briones MD [facility] [place], [place] [id number] PCP - General General Internal Medicine 04/18/22 04/22/22 Santosh Briones MD [address] [facility] [address] [place], [place] [id number] PCP - General General Internal Medicine 04/23/22 Julius Cho MD [address] [place] [address] Referring Physician Internal Medicine 04/23/22 Lew Ross MD [address] [facility] [address] [place] [address] Cardiology 08/13/23 Karlos Pringle PA-C [address] [place] [address] [place] [address] Cardiology 11/23/23 documented as of this encounter
--- OUTSIDE RECORDS SUMMARY | 2025-03-08 13:43 | XMS_ITS | Encounter Summary ---
Author Organization [employer] ([place], [place], [place], [place], [place]) Address [address] [place] [address] Care Team Providers Care Undercover Cop Name Role Phone Santosh Briones MD Primary Care Provider [phone] Julius Cho MD Unavailable Lew Ross MD Unavailable Karlos Pringle PA-C Unavailable [phone] Reason for Visit * Reason Onset Date Comments Advice Only 01/10/2025 Encounter Details Date Type Department Care Team (Late st Contact Info) Description 01/10/2025 Telephone [facility] Cardiology [address] [place] [address] Lesly Sanchez, SPAGHETTI MACHINE OPERATOR [address] [place] [id number] Advice Only Social History Tobacco Use Types [...] speak a language other than Danish at ho nv? No 08/17/2023 Do you want help with [...] Sex Assigned at Female 03/19/2022 10:49 AM FABRICATION INSPECTOR Legal Sex Female 5:46 PM CDT Gender Identity Female 03/19/2022 10:49 AM FABRICATION INSPECTOR Sexual Orientation Not on file documented as of this encounter Miscellaneous Notes * Telephone Encounter - Sharece Crescencio - 01/10/2025 9:21 AM EDT Left detailed message for patient that the last office note where Lesly cleared patient for upcoming procedure 12/30 was faxed over to [facility] if she have any question she can contact our office back * Telephone Encounter - Devorah Fields - 01/10/2025 8:59 AM EDT Patient was calling needing her Cardiac Clearance faxed over to [facility] [phone] documented in this encounter Plan of Treatment Upcoming Encounters Date Type Department Care Team (Late st Contact Info) Description 04/06/2025 9:00 AM EST Office Visit [facility] Cardiology [address] [place] [address] Lew Ross MD [address] [place] [address] [address] documented as of this encounter Visit Diagnoses Not on filedocumented in this encounter Care Teams Undercover Cop Relationship Specialty Start Date End Date Santosh Briones MD [address] [facility] [place] [address] PCP - General General Internal Medicine 04/23/22 Julius Cho MD [address] [place] [address] Referring Physician Internal Medicine 04/23/22 Lew Ross MD [address] [place] [address] [address] Cardiology 08/13/23 Karlos Pringle PA-C [address] [place] [address], [address] [place] [address] Cardiology 11/23/23 documented as of this encounter
--- OUTSIDE RECORDS SUMMARY | 2025-03-08 13:44 | XMS_ITS | Encounter Summary ---
Author Organization [employer] ([place], [place], [place], [place], [place]) Address [address] [place] [address] Care Team Providers Care Stave Grader Name Role Phone Santosh Briones MD Primary Care Provider [phone] Julius Cho MD Unavailable Lew Ross MD Unavailable Karlos Pringle PA-C Unavailable [phone] Reason for Visit * Reason Onset Date Comments Cardiac Clearance 02/16/2025 Encounter Details Date Type Department Care Team (Late st Contact Info) Description 02/16/2025 Telephone [facility] Cardiology [address] [place] [address] Lesly Sanchez, CRISTOFER [address] [place], [place] [id number] Cardiac Clearance Social History Tobacco Use Types Packs/Day Years [...] Do you speak a language other than Belarusian at ho nv? No 08/17/2023 Do you [...] Sex Assigned at Female 03/19/2022 10:49 AM MATHEMATICIAN RESEARCH Legal Sex Female 5:46 PM CDT Gender Identity Female 03/19/2022 10:49 AM MATHEMATICIAN RESEARCH Sexual Orientation Not on file documented as of this encounter Miscellaneous Notes * Telephone Encounter - Sharece Crescencio - 02/17/2025 4:06 PM EDT Last office visit note with cardiac clearance instructions has been faxed to Dr. Noyola office [phone] * Telephone Encounter - Arturo Prather - 02/17/2025 3:00 PM EDT Faxed received regarding cardiac clearance for upcoming colonoscopy scheduled for 03/01/25. Will put on provider desk for recommendation. * Telephone Encounter - Leny Washington - 02/16/2025 11:09 AM EDT Fax received from [facility] requesting a cardiac clearance for patient having colonoscopy scheduled for 03/01 be faxed to [phone] Fax forwarded to [facility] documented in this encounter Plan of Treatment Upcoming Encounters Date Type Department Care Team (Late st Contact Info) Description 04/06/2025 9:00 AM EST Office Visit [facility] Cardiology [address] [place] [id number] Lew Ross MD [address] [place] [address] [address] [place] [address] documented as of this encounter Visit Diagnoses Not on filedocumented in this encounter Care Teams Stave Grader Relationship Specialty Start Date End Date Santosh Briones MD [address] [facility] [place] [address] [place] [address] PCP - General General Internal Medicine 04/23/22 Julius Cho MD [address] [place] [address] Referring Physician Internal Medicine 04/23/22 Lew Ross MD [address] [place] [address] [address] [place], [place] [id number] Cardiology 08/13/23 Karlos Pringle PA-C [address] [place] [address] Rd, [facility] [address] [place] [address] Cardiology 11/23/23 documented as of this encounter
--- OUTSIDE RECORDS SUMMARY | 2025-03-08 13:44 | XMS_ITS | Encounter Summary ---
Author Organization [employer] ([place], [place], [place], [place], [place]) Address [address] [place] [address] Care Team Providers Care Editor Publications Name Role Phone Santosh Briones MD Primary Care Provider [phone] Julius hCo MD Unavailable Lew Ross MD Unavailable Karlos Pringle PA-C Unavailable [phone] Reason for Visit * Reason Onset Date Comments Medication Management 01/10/2025 Encounter Details Date Type Department Care Team (Late st Contact Info) Description 01/10/2025 Telephone [facility] Cardiology [address] [place] [address] Lesly Sanchez, STRETCHER DRIER OPERATOR [address] [facility] [address] [place] [id number] Medication Management Social History Tobacco Use Types [...] Do you speak a language other than Greenlandic at ho or? No 08/17/2023 Do you want help with [...] Assigned at Female 03/19/2022 10:49 AM CLINICAL OPERATIONS CONSULTANT Legal Sex Female 5:46 PM CDT Gender Identity Female 03/19/2022 10:49 AM CLINICAL OPERATIONS CONSULTANT Sexual Orientation Not on file documented as of this encounter Miscellaneous Notes * Telephone Encounter - Leny Padmini - 01/11/2025 1:02 PM EDT Patient left VM wanting to discuss medication changes * Telephone Encounter - Daveleda Crescencio - 01/10/2025 2:36 PM EDT Lesly would you like for me to send in the script for the Mounjaro even after the PA patient states medication is too expensive * Telephone Encounter - Doris Jean - 01/10/2025 12:16 PM EDT Patient states the wegovy is too expensive, she is asking if she can get the mounjaro instead. Please call [phone] documented in this encounter Plan of Treatment Upcoming Encounters Date Type Department Care Team (Late st Contact Info) Description 04/06/2025 9:00 AM EST Office Visit [facility] Cardiology [address] [place] [address] Lew Ross MD [address] [place] [address] [place] [address] documented as of this encounter Visit Diagnoses Not on filedocumented in this encounter Care Teams Editor Publications Relationship Specialty Start Date End Date Santosh Briones MD [address] [facility] [place] [address] PCP - General General Internal Medicine 04/23/22 Julius Cho MD [address] [place] [address] Referring Physician Internal Medicine 04/23/22 Lew Ross MD [address] [place] [address] [address] Cardiology 08/13/23 Karlos Pringle PA-C [address] [place] [address] Cardiology 11/23/23 documented as of this encounter
--- OUTSIDE RECORDS SUMMARY | 2025-03-08 13:44 | XMS_ITS | Encounter Summary ---
Author Organization Healthcare Address [address] [place] [address] Care Team Providers Care Inspector Sheet Metal Parts Name Role Phone Santosh Briones MD Primary Care Provider [phone] Abby Phillip APRN Primary Care Provider [phone] Encounter Details Date Type Department Care Team (Late st Contact Info) Description 09/09/2024 Orders Only External Location [address] [place] [address] Provider, External Social History Tobacco Use Types [...] filedocumented in this encounter Care Teams Inspector Sheet Metal Parts Relationship Specialty Start Date End Date Santosh Briones MD [address] [place] [address] PCP - General 12/31/21 01/02/25 Abby Phillip APRN [address] [place] [address] PCP - General 01/03/25 documented as of this encounter
--- OUTSIDE RECORDS SUMMARY | 2025-03-08 13:44 | XMS_ITS | Encounter Summary ---
Author Organization Healthcare Address [address] [place] [address] Care Team Providers Care Hosiery Mender Name Role Phone Abby Phillip APRN Primary Care Provider [phone] Encounter Details Date Type Department Care Team [...] documented as of this encounter Care Teams Hosiery Mender Relationship Specialty Start Date End Date Abyb Phillip APRN [address] [place] [address] PCP - General 01/03/25 documented as of this encounter
--- OUTSIDE RECORDS SUMMARY | 2025-03-08 13:44 | XMS_ITS | Encounter Summary ---
Author Organization Healthcare Address [address] [place] [address] Care Team Providers Care Marketing Manager Health Communications Name Role Phone Santosh Briones MD Primary Care Provider [phone] Abby Phillip APRN Primary Care Provider [phone] Encounter Details Date Type Department Care Team (Late st Contact Info) Description 09/09/2024 Orders Only External Location [address] [place] [address] Provider, External Social History Tobacco Use Types [...] on filedocumented in this encounter Care Teams Marketing Manager Health Communications Relationship Specialty Start Date End Date Santosh Briones MD [address] [place] [address] PCP - General 12/31/21 01/02/25 Abby Phillip APRN [address] [place] [address] PCP - General 01/03/25 documented as of this encounter
--- OUTSIDE RECORDS SUMMARY | 2025-03-08 13:44 | XMS_ITS | CCD ---
Author Name Interface, [employer] Address [address] [facility] [place] [address] Organization [facility] Address [address] [place] [address] [address] [place] [address] Care Team Providers Care Basket Person Name Role Phone Misbah STEWART, Fuentes Unavailable Unavailable Allergies and Adverse Reactions Medication/Group Name Reaction Severity Date morphine 05/21/2022 Bactrim 05/21/2022 Reason for Visit FOLLOW UP Medications Date Name Route Dose Frequency Instructions Start Date End Date Status Fill Status Indication 05/21 Lisinopri l Oral active 05/22 Nirmatrel vir-Riton avir Dose Pack 300 mg (150 mg x 2)-100 mg active 05/22 Hydrocodo ne-Acetam inophen Oral 10 mg-325 mg active 05/22 Lisinopri l Oral stopped 05/22 Atorvasta tin Oral active 05/22 Gabapenti n Oral active 05/22 Methocarb dina Oral active 05/21 Cyanocoba leydi Oral active 05/22 Nystatin Oral active 05/22 Nitroglyc danni Sublingua l active 05/21 Pantopraz ole (Sodium) Oral Delayed Release active 05/21 Furosemid e Oral active 05/21 Apixaban Oral active 05/21 Meloxicam Oral active Problems Diagnosis Status Date of Diagnosis Resolution Date History of deep vein thrombosis (situation) Active Anemia Active Deep vein thrombosis Active HTN Active terminologist current use of anticoagulants Active Iron deficiency anemia (disorder) Active Hypotension Active Essential hypertension (disorder) Active Lymphedema (disorder) Active Social History Date Name Value 07/28/2019 Sex Female
--- OUTSIDE RECORDS SUMMARY | 2025-03-08 13:44 | XMS_ITS | Clinical Summary ---
Author Organization [facility] Address [address] [place] [address] Care Team Providers Care Passenger Flagman Name Role Phone Abby Phillip CRISTOFER Primary Care Provider [phone] Allergies Active Allergy Reactions Criticality Noted Date [...] - 01/16/2025 11:59 PM EDT Hospital Encounter [facility] Radiology [address], [address] [place] [id number] Bilateral hip pain Discharge Disposition: Home or Self Care 01/16/2025 9:30 AM EDT Consult [facility] Clinic Medicine Specialties [address], [address] [place] [address] Graeme, May R, ENGINE WIPER History of DVT (deep vein thrombosis) (Primary [...] UKY-Zoster Vaccines (2 of 2) 03/20/2023 01/23/2023 [id number] Vaccine (5 - 2024- season) 2025 10/29/2021, [...] of DVT (deep vein thrombosis) GARRY positive CARDIOLIPIN ANTIBODY, IGA (SO) Routine 01/16/2025 10:15 AM [...] Routine 01/16/2025 10:15 AM EDT GARRY positive DOUBLE-STRANDED DNA (DSDNA) ANTIBODY, IGG BY IFA (SO) Routine 01/16/2025 10:15 AM EDT GARRY positive C3 COMPLEMENT Routine 01/16/2025 10:15 AM EDT GARRY positive C4 COMPLEMENT Routine 01/16/2025 10:15 AM EDT GARRY positive CBC WITH AUTO DIFFERENTIAL Routine 01/16/2025 10:15 AM EDT GARRY positive BAKER/SENIOR HR MANAGER (DANICA) ANTIBODY, IGG (SO) Routine 01/16/2025 10:15 AM EDT GARRY positive EXTRACTABLE NUCLEAR ANTIGEN ANTIBODIES (SSA 52, SSA 60, AND SSB) (SO) Routine 01/16/2025 10:15 AM EDT GARRY positive BAKER (DANICA) ANTIBODY, IGG (SO) Routine 01/16/2025 10:15 AM EDT GARRY [...] Jam Lopez MD on 01/16/2025 10:53 AM us May R Graeme [place] [facility] XR PROCEDURES Final Res ult * Urinalysis Microscopic Examination (01/16/2025 10:16 AM EDT) Urine Urine specimen obtained by clean catch procedure / Unknown Non-blood Collection / Unknown 01/16/2025 10:16 AM EDT 01/16/2025 10:16 AM EDT us May R Graeme [place] [facility] URINE ORDERABLES Final Result [facility] [address] [place] [address] * Protein, Random, Urine with Creatinine (01/16/2025 10:16 AM EDT) Protein, Urine 6 mg/dL 01/16/2025 12:12 PM EDT [facility] Creatinine, Urine 34 mg/dL 01/16/2025 12:12 PM EDT [facility] Protein/Creatin ine Ratio 0.2 mg/mg Creat 01/16/2025 12:12 PM EDT [facility] Urine Urine specimen obtained by clean catch procedure / Unknown Non-blood Collection / Unknown 01/16/2025 10:16 AM EDT 01/16/2025 10:16 AM EDT may Graeme ENGINE WIPER LAB URINE ORDERABLES Final Result [facility] [address] [place] [address] * (ABNORMAL) Urinalysis with reflex microscopic (Culture NOT Included) (01/16/2025 10:16 AM EDT) Color, Urine Yellow LAB URINALYSIS - AUTOMATED METHOD 01/16/2025 11:59 AM EDT [facility] Clarity, Urine Clear LAB URINALYSIS - AUTOMATED METHOD 01/16/2025 11:59 AM EDT [facility] Spec [place], Urine 1.013 1.005 - 1.030 LAB URINALYSIS - AUTOMATED METHOD 01/16/2025 11:59 AM EDT [facility] pH, Urine 6.0 5.0 - 8.0 LAB URINALYSIS - AUTOMATED METHOD 01/16/2025 11:59 AM EDT [facility] Protein, Urine Negative Negative mg/dL LAB URINALYSIS - AUTOMATED METHOD 01/16/2025 11:59 AM EDT [facility] Glucose, Urine Negative Negative mg/dL LAB URINALYSIS - AUTOMATED METHOD 01/16/2025 11:59 AM EDT [facility] Ketones, Urine Negative Negative mg/dL LAB URINALYSIS - AUTOMATED METHOD 01/16/2025 11:59 AM EDT [facility] Blood, Urine Large(A) Negative LAB URINALYSIS - AUTOMATED METHOD 01/16/2025 11:59 AM EDT [facility] Bilirubin, Urine Negative Negative LAB URINALYSIS - AUTOMATED METHOD 01/16/2025 11:59 AM EDT [facility] Urobilinogen, Urine 0.2 0.2 to 1.0 mg/dL LAB URINALYSIS - AUTOMATED METHOD 01/16/2025 11:59 AM EDT [facility] Leukocytes, Urine Small(A) Negative LAB URINALYSIS - AUTOMATED METHOD 01/16/2025 11:59 AM EDT [facility] Nitrite, Urine Negative Negative LAB URINALYSIS - AUTOMATED METHOD 01/16/2025 11:59 AM EDT [facility] RBC, Urine 11 - 15(A) 0 to 3 /HPF LAB URINALYSIS - AUTOMATED METHOD 01/16/2025 11:59 AM EDT [facility] WBC, Urine 6 - 10(A) 0 to 5 /HPF LAB URINALYSIS - AUTOMATED METHOD 01/16/2025 11:59 AM EDT [facility] Squamous Epithelial Cells 11 - 20(A) 0 to 5 /HPF LAB URINALYSIS - AUTOMATED METHOD 01/16/2025 11:59 AM EDT [facility] Hyaline Casts 0 - 2 0 to 5 /LPF LAB URINALYSIS - AUTOMATED METHOD 01/16/2025 11:59 AM EDT [facility] Bacteria, Urine Negative Negative LAB URINALYSIS - AUTOMATED METHOD 01/16/2025 11:59 AM EDT [facility] Urine Urine specimen obtained by clean catch procedure / Unknown Non-blood Collection / Unknown 01/16/2025 10:16 AM EDT 01/16/2025 10:16 AM EDT us May R Graeme ENGINE WIPER LAB URINE ORDERABLES Final Result Performing Organization Address City/[facility] [address]/ZIP Co de Phone Number [facility] [address] [place] [address] * RPR With Reflex to Titer (01/16/2025 10:15 AM EDT) Rapid Plasma Reagin Nonreactive Non Reactive 01/17/2025 12:43 AM EDT [facility] Blood Venous blood specimen / Unknown Venipuncture / Unknown 01/16/2025 10:15 AM EDT 01/16/2025 10:15 AM EDT May Graeme ENGINE WIPER LAB BLOOD ORDERABLES Final Result Performing Organization Address City/[facility] [address]/ZIP Co de Phone Number [facility] [address] [place] [address] * DNA Isolation and Hold (HLA) (01/16/2025 10:15 AM EDT) Blood Venous blood specimen / Unknown Venipuncture / Unknown 01/16/2025 10:15 AM EDT 01/16/2025 10:15 AM EDT may R Graeme [facility] LAB MOLECULAR DIAGNOSTICS O RDERABLES Final Result Performing Organization Address City/[facility] [address]/ZIP Co de Phone Number [facility] [address] [place] [address], [place] * Anti-Beta 2 Glycoprotein, IgG and IgM (01/16/2025 10:15 AM EDT) Anti-Beta 2 Glycoprotein 1, IgG 2.2 <20.0 U/mL 01/16/2025 3:[address] [facility] Anti-Beta 2 Glycoprotein IgG Interpretation Negative Negative 01/16/2025 3:[address] [facility] Anti-Beta 2 Glycoprotein 1, IgM <1.5 <20.0 U/mL 01/16/2025 3:[address] [facility] Anti-Beta 2 Glycoprotein IgM Interpretation Negative Negative 01/16/2025 3:[address] [facility] Blood Venous blood specimen / Unknown Venipuncture / Unknown 01/16/2025 10:15 AM EDT 01/16/2025 10:15 AM EDT may R Graeme [facility] BLOOD ORDERABLES Final Result Performing Organization Address City/[facility] [address]/ZIP Co de Phone Number [facility] [address] [place] [address] * Beta-2 Glycoprotein 1 Antibody, IgA (01/16/2025 10:15 AM EDT) [id number] 1, IgA Antibody <10 <=20 KARON 01/18/2025 4:33 AM EDT [facility] ([facility]) Serum 01/16/2025 10:1 5 AM EDT 01/16/2025 10:15 AM EDT Narrative [facility] ([facility]) - 01/18/2025 4:33 AM EDT Performed By: [facility] [address] [place] [address] Branch Rental Manager: El Duarte MD, PhD CLIA Number: [id number] May R Graeme ENGINE WIPER LAB BLOOD ORDERABLES Final Result Performing Organization Address [facility] [address] [facility]/[place] [address] * Baker (DANICA) Antibody, IgG (01/16/2025 10:15 AM EDT) Baker (DANICA) Antibody, IgG 2 0 - 40 AU/mL 01/19/2025 1:10 PM EDT [facility]) Serum 01/16/2025 10:1 5 AM EDT 01/16/2025 10:15 AM EDT Narrative [facility]) - 01/19/2025 1:10 PM EDT INTERPRETIVE INFORMATION: [...] associations with SLE clinical manifestations. Performed By: [facility] [address] [place] [address] Branch Rental Manager: El Duarte MD, PhD CLIA Number: [id number] May R Graeme ENGINE WIPER LAB REF LAB BLOOD AND FLUID ORD Final Result Performing Organization Address [facility]/ZIP Co de Phone Number [facility] ([facility]) [address] [place] [address] * ENAII (01/16/2025 10:15 AM EDT) SSA-52 (RO52) (DANICA) Antibody, IgG 1 0 - 40 AU/mL 01/19/2025 1:10 PM EDT [facility] ([facility]) SSA-60 (RO60) (DANICA) Antibody, IgG 0 0 - 40 AU/mL 01/19/2025 1:10 PM EDT [facility] ([facility]) SSB (LA) (DANICA) Antibody, IgG 0 0 - 40 AU/mL 01/19/2025 1:[address] [facility] ([facility]) Blood Venous blood specimen / Unknown Venipuncture / Unknown 01/16/2025 10:15 AM EDT 01/16/2025 10:15 AM EDT Narrative [facility] ([facility]) - 01/19/2025 1:10 PM EDT INTERPRETIVE INFORMATION: [...] (PSS) also have this antibody. Performed By: [facility] [address] [place] [address] Branch Rental Manager: El Duarte MD, PhD CLIA Number: [id number] May Graeme ENGINE WIPER LAB BLOOD ORDERABLES Final Result Performing Organization Address [facility] Co de Phone Number [facility] ([place]) [address] [place] [address] * ENAI (01/16/2025 10:15 AM EDT) Baker/SENIOR HR MANAGER (DANICA) Ab, IgG 2 0 - 19 Units 01/18/2025 2:39 PM EDT [facility] ([place]) Blood Venous blood specimen / Unknown Venipuncture / Unknown 01/16/2025 10:15 AM EDT 01/16/2025 10:15 AM EDT Narrative [facility] ([place]) - 01/18/2025 2:39 PM EDT INTERPRETIVE INFORMATION: Baker/SENIOR HR MANAGER (DANICA) Antibody, IgG 19 Units or Less ............. Negative 20 to 39 Units ............... Weak Positive 40 to 80 Units ............... Moderate Positive 81 Units or greater .......... Strong Positive Baker/SENIOR HR MANAGER antibodies are frequently seen in patients with mixed connective tissue disease (MCTD) and are also associated with other systemic autoimmune rheumatic diseases (SARDs) such as systemic lupus erythematosus (SLE), systemic sclerosis, and myositis. Antibodies targeting the Baker/SENIOR HR MANAGER antigenic complex also recognize Baker antigens, therefore, the Baker antibody response must be considered when interpreting these results. Performed By: [facility] [address] [place] [address] Branch Rental Manager: El Duarte MD, PhD CLIA Number: [id number] may ENGINE WIPER LAB BLOOD ORDERABLES Final Result Performing Organization Address [facility] Co de Phone Number [facility] ([place]) [address] [place] [address] * Anticardiolipin IgG and IgM (01/16/2025 10:15 AM EDT) IgG Anticardiolipin 2.00 <20.00 GPL Units/mL 01/16/2025 3:19 PM EDT [facility] Anticardiolipin IgG Interpretation Negative Negative 01/16/2025 3:19 PM EDT [facility] IgM Anticardiolipin <1.50 <20.00 MPL Units/mL 01/16/2025 3:19 PM EDT [facility] Anticardiolipin IgM Interpretation Negative Negative 01/16/2025 3:[address] [facility] Blood Venous blood specimen / Unknown Venipuncture / Unknown 01/16/2025 10:15 AM EDT 01/16/2025 10:15 AM EDT May [facility] LAB BLOOD ORDERABLES Final Result [facility] [address] [place] [address] * HLA B27 Typing (01/16/2025 10:15 AM EDT) Blood Venous blood specimen / Unknown Venipuncture / Unknown 01/16/2025 10:15 AM EDT 01/16/2025 10:15 AM EDT may Graeme [facility] BLOOD ORDERABLES Final Result [facility] [address] [place] [address], [place] * Thyroid Peroxidase Antibody (01/16/2025 10:15 AM EDT) Thyroid Peroxidase Antibody <5 <=8 IU/mL 01/16/2025 1:57 PM EDT [facility] Blood Venous blood specimen / Unknown Venipuncture / Unknown 01/16/2025 10:15 AM EDT 01/16/2025 10:15 AM EDT May R Graeme ENGINE WIPER LAB BLOOD ORDERABLES Final Result [facility] [address] [place] [address] * Cyclic Citrul Peptide Antibody IgG (01/16/2025 10:15 AM EDT) Cyclic Citrul Peptide Antibody IgG <5.0 <=5.0 U/mL 01/16/2025 3:[address] [facility] Blood Venous blood specimen / Unknown Venipuncture / Unknown 01/16/2025 10:15 AM EDT 01/16/2025 10:15 AM EDT May R Graeme ENGINE WIPER LAB BLOOD ORDERABLES Final Result Performing Organization Address City/[facility]/ZIP Co de Phone Number [facility] [address] [place] [address] * Double-Stranded DNA (dsDNA) Antibody, IgG by IFA (01/16/2025 10:15 AM EDT) [facility] Double-Strande d DNA (dsDNA) Ab IgG IFA <1:10 <1:10 01/18/2025 11:[address] [facility] ([place]) Blood Venous blood specimen / Unknown Venipuncture / Unknown 01/16/2025 10:15 AM EDT 01/16/2025 10:15 AM EDT Narrative [facility] ([place]) - 01/18/2025 11:57 PM EDT INTERPRETIVE [...] recommendations for testing may be found at https://[employer]/content/jtsmlihfou-acjpns-fnlgycsm. Performed By: [facility] [address] [place] [address] Branch Rental Manager: El Duarte MD, PhD CLIA Number: [id number] May R [facility] LAB BLOOD ORDERABLES Final Result Performing Organization Address [facility]/ZIP Co de Phone Number [facility] [employer]) [address] [place] [address] * Cardiolipin antibody, IgA (01/16/2025 10:15 AM EDT) Pathologist [facility] Cardiolipin Antibody IgA <10 <=11 APL 01/19/2025 12:32 PM EDT [facility] ([place]) Blood Venous blood specimen / Unknown Venipuncture / Unknown 01/16/2025 10:15 AM EDT 01/16/2025 10:15 AM EDT Narrative [facility] [employer]) - 01/19/2025 12:32 PM EDT INTERPRETIVE INFORMATION: Cardiolipin Antibodies, IgA <=11 APL: Negative 12-19 APL: Indeterminate 20-80 APL: Low to Moderately Positive 81 APL or above: High Positive Performed By: [facility] [address] [place] [address] Branch Rental Manager: El Duarte MD, PhD CLIA Number: [id number] May [facility] LAB BLOOD ORDERABLES Final Result Performing Organization Address [facility] Co de Phone Number [facility] [employer]) [address] [place] [address] * (ABNORMAL) Lupus Anticoagulant Profile (01/16/2025 10:15 AM EDT) Pathologist [facility] Lupus Anticoagulant Result Lupus anticoagulant (LA) not detected by either LA-sensitive aPTT or dRVVT assays. If clinical suspicion for antiphospholipid syndrome is high, consider testing for antibodies against cardiolipin and [id number] n I. 01/17/2025 11:38 AM EDT [facility] aPTT Lupus Anticoagulant Sensitive 36.9 <=41.0 sec LAB COAGULATION METHOD 01/17/2025 11:38 AM EDT [facility] DRVVT Screen 52.4 sec LAB COAGULATION METHOD 01/17/2025 11:38 AM EDT [facility] DRVVT Screen Ratio 1.39(H) <1.20 LAB COAGULATION METHOD 01/17/2025 11:38 AM EDT [facility] DRVVT Confirmation 53.3 sec LAB COAGULATION METHOD 01/17/2025 11:38 AM EDT [facility] DRVVT Confirmation Ratio 1.53 LAB COAGULATION METHOD 01/17/2025 11:38 AM EDT [facility] DRVVT Screen Ratio/Confirmat ion Ratio 0.91 <1.20 LAB COAGULATION METHOD 01/17/2025 11:38 AM EDT [facility] Blood Venous blood specimen / Unknown Venipuncture / Unknown 01/16/2025 10:15 AM EDT 01/16/2025 10:15 AM EDT May R [facility] LAB BLOOD ORDERABLES Final Result Performing Organization Address [facility] Co de Phone Number [facility] [address] [place] [address] * DRVVT (01/16/2025 10:15 AM EDT) Blood Venous blood specimen / Unknown Venipuncture / Unknown 01/16/2025 10:15 AM EDT 01/16/2025 10:15 AM EDT May R Graeme ENGINE WIPER LAB BLOOD ORDERABLES Final Result Performing Organization Address City/[facility]/ZIP Co de Phone Number [facility] [address] [place] [address] * (ABNORMAL) CBC and Differential (01/16/2025 10:15 AM EDT) WBC Count 6.41 3.70 - 10.30 10*3/uL LAB HEMATOLOGY METHOD 01/16/2025 11:33 AM EDT [facility] RBC Count 3.88(L) 3.90 - 5.20 10*6/uL LAB HEMATOLOGY METHOD 01/16/2025 11:33 AM EDT [facility] HGB 10.0(L) 11.2 - 15.7 g/dL LAB HEMATOLOGY METHOD 01/16/2025 11:33 AM EDT [facility] HCT 33.6(L) 34.0 - 45.0 % LAB HEMATOLOGY METHOD 01/16/2025 11:33 AM EDT [facility] Platelet Count 277 155 - 369 10*3/uL LAB HEMATOLOGY METHOD 01/16/2025 11:33 AM EDT [facility] MCV 87 79 - 98 fL LAB HEMATOLOGY METHOD 01/16/2025 11:33 AM EDT [facility] MCH 25.8(L) 26.0 - 32.0 pg LAB HEMATOLOGY METHOD 01/16/2025 11:33 AM EDT [facility] MCHC 29.8(L) 30.7 - 35.5 g/dL LAB HEMATOLOGY METHOD 01/16/2025 11:33 AM EDT [facility] RDW 15.9(H) 11.5 - 14.5 % LAB HEMATOLOGY METHOD 01/16/2025 11:33 AM EDT [facility] MPV 9.6 8.8 - 12.5 fL LAB HEMATOLOGY METHOD 01/16/2025 11:33 AM EDT [facility] nRBC 0.0 <=0.0 per 100 WBCs LAB HEMATOLOGY METHOD 01/16/2025 11:33 AM EDT [facility] Differential Type Automated LAB HEMATOLOGY METHOD 01/16/2025 11:33 AM EDT [facility] Neutrophils % 61 % LAB HEMATOLOGY METHOD 01/16/2025 11:33 AM EDT [facility] Lymphocytes % 28 % LAB HEMATOLOGY METHOD 01/16/2025 11:33 AM EDT [facility] Monocytes % 8 % LAB HEMATOLOGY METHOD 01/16/2025 11:33 AM EDT [facility] Eosinophils % 1 % LAB HEMATOLOGY METHOD 01/16/2025 11:33 AM EDT [facility] Basophils % 1 % LAB HEMATOLOGY METHOD 01/16/2025 11:33 AM EDT [facility] Immature Granulocytes % 1 % LAB HEMATOLOGY METHOD 01/16/2025 11:33 AM EDT [facility] Neutrophils Absolute 3.95 1.60 - 6.10 10*3/uL LAB HEMATOLOGY METHOD 01/16/2025 11:33 AM EDT [facility] Lymphocytes Absolute 1.77 1.20 - 3.90 10*3/uL LAB HEMATOLOGY METHOD 01/16/2025 11:33 AM EDT [facility] Monocytes Absolute 0.50 0.30 - 0.90 10*3/uL LAB HEMATOLOGY METHOD 01/16/2025 11:33 AM EDT [facility] Eosinophils Absolute 0.09 0.00 - 0.50 10*3/uL LAB HEMATOLOGY METHOD 01/16/2025 11:33 AM EDT [facility] Basophils Absolute 0.04 0.00 - 0.10 10*3/uL LAB HEMATOLOGY METHOD 01/16/2025 11:33 AM EDT [facility] Immature Granulocytes Absolute 0.06 0.00 - 0.06 10*3/uL LAB HEMATOLOGY METHOD 01/16/2025 11:33 AM EDT [facility] Blood Venous blood specimen / Unknown Venipuncture / Unknown 01/16/2025 10:15 AM EDT 01/16/2025 10:15 AM EDT Narrative [facility] - 01/16/2025 11:33 AM EDT Therapeutic decision making should be based on absolute values, rather than percentages. us May R Graeme ENGINE WIPER LAB BLOOD ORDERABLES Final Result Performing Organization Address City/[facility] [address] [facility]/ZIP Co de Phone Number [facility] [address] [place] [address] * Rheumatoid Factor, Plasma (01/16/2025 10:15 AM EDT) Rheumatoid Factor, Plasma <10 <14 IU/mL 01/16/2025 1:24 PM EDT [facility] Blood Venous blood specimen / Unknown Venipuncture / Unknown 01/16/2025 10:15 AM EDT 01/16/2025 10:15 AM EDT May Graeme ENGINE WIPER LAB BLOOD ORDERABLES Final Result Performing Organization Address City/[facility] [address]/ZIP Co de Phone Number [facility] [address] [place] [address] * C3 Complement (01/16/2025 10:15 AM EDT) C3 Complement 144 84 - 166 mg/dL 01/16/2025 1:19 PM EDT [facility] Blood Venous blood specimen / Unknown Venipuncture / Unknown 01/16/2025 10:15 AM EDT 01/16/2025 10:15 AM EDT May R Graeme ENGINE WIPER LAB BLOOD ORDERABLES Final Result [facility] [address] [place] [address] * (ABNORMAL) C4 Complement (01/16/2025 10:15 AM EDT) C4 Complement 37(H) 13 - 36 mg/dL 01/16/2025 1:[address] [facility] Blood Venous blood specimen / Unknown Venipuncture / Unknown 01/16/2025 10:15 AM EDT 01/16/2025 10:15 AM EDT [facility] Final Result Performing Organization Address [facility] [address] [facility] Co de Phone Number [address] [address] * Antinuclear Antibody (GARRY), HEp-2, IgG (01/16/2025 10:15 AM EDT) GARRY INTERPRETIVE COMMENT See Note 01/18/2025 8:40 AM EDT [facility] ([facility]) Anti Nuc Ab Screen <1:80 <1:80 01/18/2025 8:40 AM EDT [facility] ([facility]) Blood Venous blood specimen / Unknown Venipuncture / Unknown 01/16/2025 10:15 AM EDT 01/16/2025 10:15 AM EDT [facility]arrative [facility] - 01/18/2025 8:40 AM EDT Clinical Interpretation: [...] not necessarily rule out SARD. Performed By: [facility] [address] [place] [address] Branch Rental Manager: El Duarte MD, PhD CLIA Number: [id number] May Graeme [facility] LAB BLOOD ORDERABLES Final Result Performing Organization Address City/[facility] [address]/ZIP Co de Phone Number [facility] ([place]) [address] [place] [address] * Thyroid Stimulating Hormone, Plasma (01/16/2025 10:15 AM EDT) Thyroid Stimulating Hormone, Plasma 0.48 0.40 - 4.20 uIU/mL 01/16/2025 1:24 PM EDT [facility] Blood Venous blood specimen / Unknown Venipuncture / Unknown 01/16/2025 10:15 AM EDT 01/16/2025 10:15 AM EDT May Graeme [facility] BLOOD ORDERABLES Final Result [facility] [address] [place] [address] from Last 3 Months Insurance [facility] MEDIC[facility] Care Teams Passenger Flagman Relationship Specialty Start Date End Date Abby Phillip APRN [address] [place] [address] PCP - General 01/03/25
--- OUTSIDE RECORDS SUMMARY | 2025-03-08 13:45 | XMS_ITS | Referral Summary ---
Author Organization [employer] ([place], [place], [place], [place], [place]) Address [address] [place] [address] Care Team Providers Care Podiatry Assistant Name Role Phone Santosh Briones MD Primary Care Provider [phone] Julius Cho MD Unavailable Lew Ross MD Unavailable Karlos Pringle PA-C Unavailable [phone] Encounters Date Type Department Care Team Description 02/16/2025 Telephone [facility] Cardiology [address] [place] [address] Lesly Sanchez, PURCHASING INTERN Cardiac Clearance 01/27/2025 Telephone [facility] Cardiology [address] [place] [address] Lesly Sanchez, PURCHASING INTERN Advice Only 01/10/2025 Telephone [facility] Cardiology [address] [place] [address] Lesly Sanchez, PURCHASING INTERN Medication Management 01/10/2025 Telephone [facility] Cardiology [address] [place] [address] Lesly Sanchez, PURCHASING INTERN Advice Only 01/03/2025 Telephone [facility] Cardiology [address] [place] [address] Lesly Sanchez, PURCHASING INTERN Medication Management 12/30/2024 Documentation [facility] Cardiology [address] [place] [phone] Dee Estevez 12/30/2024 Travel 12/30/2024 9:30 AM EDT Office Visit [facility] Cardiology [address] [place] [phone] Lesly Sanchez, CRISTOFER Coronary artery disease involving kenaitze coronary artery of kenaitze heart without angina pectoris (Primary Dx); Morbid [...] tablet (40 mg total) by mouth daily. 07/31/2023 Active apixaban (Eliquis) 5 mg Tab tablet Take 1 tablet (5 mg total) by mouth 2 (two) times daily. Active cholecalciferol (VITAMIN D3) 125 mcg (5,000 unit) tablet Take 1 tablet (5,000 Units total) by mouth daily. Active acetaminophen (TYLENOL) 650 MG CR tablet Take 1 tablet (650 mg total) by mouth every 8 (eight) hours as needed for pain. Active DULoxetine (CYMBALTA) 30 MG capsule Take 1 capsule (30 mg total) by mouth daily. 12/27/2024 Active gabapentin (NEURONTIN) 300 MG capsule Take [...] the skin every 7 days. 2 mL 12/30/2024 Active Active Problems Problem Noted Date Diagnosed [...] Do you speak a language other than Moldovan at [facility]? [...] Assigned at Female 03/19/2022 10:49 AM INSURANCE MARKETING SPECIALIST Legal Sex Female 5:46 PM CDT Gender Identity Female 03/19/2022 10:49 AM INSURANCE MARKETING SPECIALIST Sexual Orientation Not on file Last Filed [...] Office Visit [facility] Cardiology [address] [place], [place] [phone] Lew Ross MD [address] [place] [address] [address] [place] [address] Medical Devices Implanted Type Area Engine Installer Device Identifier Shelf Expiration Date Model / Serial / Lot Base Tib 18mm [id number] - [id number] Implanted:Qty : 1 on 04/23/2022 by Massimo Blake DPM at [facility] IMPLANTS Left: Ankle ARIAS MED GRP:ARIAS MED TECH 03/13/[id number] / / [id number] Stem Mid Tib 16mm [id number] - [id number] Implanted:Qty : 2 on 04/23/2022 by Massimo Blake DPM at [facility] IMPLANTS Left: Ankle ARIAS MED GRP:ARIAS MED TECH 03/10/[id number] / / [id number] Stem Top Tib 16mm [id number] - [id number] Implanted:Qty : 1 on 04/23/2022 by Massimo Blake DPM at [facility] IMPLANTS Left: Ankle ARIAS MED GRP:ARIAS MED TECH 05/20/[id number] / / [id number] Cement Bone Smplx Tobra 40gm 6197-9-001 - [id number] Implanted:Qty : 3 on 04/23/2022 by Massimo Blake DPM at [facility] IMPLANTS Left: Ankle GIUSEPPE:GIUSEPPE ORTHOPAEDICS 08/02/2023 6197-9-001 / / [id number] Tray Tib Sz4 L [id number] - [id number] Implanted:Qty : 1 on 04/23/2022 by Massimo Blake DPM at [facility] IMPLANTS Left: Ankle ARIAS MED GRP:ARIAS MED TECH 02/20/[id number] / / [id number] Dome Inbone Talar Sulcus Sz 3 - [id number] Implanted:Qty : 1 on 04/23/2022 by Massimo Blake, DPM at [facility] IMPLANTS Left: Ankle ARIAS MED GRP:ARIAS MED TECH 10/31/2028- / / [id number] Insrt Crosslnk Poly Sz3 [id number] - [id number] Implanted:Qty : 1 on 04/23/2022 by Massimo Blake, DPM at [facility] IMPLANTS Left: Ankle ARIAS MED GRP:ARIAS MED TECH 02/17/203015235068 / / [id number] Stem Talar 10mm [id number] - [id number] Implanted:Qty : 1 on 04/23/2022 by Massimo Blake, DPM at [facility] IMPLANTS Left: Ankle ARIAS MED GRP:ARIAS MED TECH 02/16/[id number] / / [id number] Bone Putty Stimulan [facility] 620-005 - [id number] Implanted:Qty : 1 on 08/18/2023 by Massimo Blake, DPM at [facility] IMPLANTS Left: Ankle BIOCOMPOSITES 03/03/2026 620-005 / / [id number] Insurance [facility] MEDICARE ADVANTAGE Advance Directives For more information, please contact: [phone] * Full Code (Latest Code Status on [...] 5:35 PM 08/18/2023 5:58 PM Care Teams Podiatry Assistant Relationship Specialty Start Date End Date Santosh Briones MD [address] [facility] [address] [place], [place] [id number] PCP - General General Internal Medicine 04/23/22 Julius Cho MD [address] [place] [address] Referring Physician Internal Medicine 04/23/22 Lew Ross MD [address] [facility] [address] [place] [address] Cardiology 08/13/23 Karlos Pringle PA-C [address] [facility] [place] [address] Cardiology 11/23/23
--- OUTSIDE RECORDS SUMMARY | 2025-03-08 13:45 | XMS_ITS | Encounter Summary ---
Author Organization [employer] ([place], [place], [place], [place], [place]) Address [address] [place] [address] Care Team Providers Care Chemistry Laboratory Technician Name Role Phone Santosh Briones MD Primary Care Provider [phone] Julius Cho MD Unavailable Lew Ross MD Unavailable Karlos Pringle PA-C Unavailable [phone] Reason for Visit * Reason Onset Date Comments Advice Only 01/27/2025 Encounter Details Date Type Department Care Team (Late st Contact Info) Description 01/27/2025 Telephone [facility] Cardiology [address] [place] [address] Lesly Sanchez, HALL SUPERVISOR [address] [place] [id number] Advice Only Social History Tobacco Use Types [...] speak a language other than [place] at [place]? 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 Thanks ----- Message ----- From: Arturo Prather Sent: 01/10/2025 2:37 PM EDT To: Lesly Sanchez APRN ----- Message from Arturo Prather sent at 01/10/2025 2:37 PM EDT ----- ----- Message ----- From: Doris Jean Sent: 01/10/2025 12:16 PM EDT To: Arturo Prather ----- Message from Doris Jean sent at 01/10/2025 12:16 PM EDT ----- documented in this encounter Plan of Treatment Upcoming Encounters Date Type Department Care Team (Late st Contact Info) Description 04/06/2025 9:00 AM EST Office Visit [facility] Cardiology [address] [place] [address] [place] [address] [place] [address] [address] [place] [address] documented as of this encounter Visit Diagnoses Not on filedocumented in this encounter Care Teams Chemistry Laboratory Technician Relationship Specialty Start Date End Date Santosh Briones MD [address] [place] [address] [place] [address] PCP - General General Internal Medicine 04/23/22 Julius Cho MD [address] [place] [address] Referring Physician Internal Medicine 04/23/22 Lew Ross MD [address] [facility] [address] [place] [address] Cardiology 08/13/23 Karlos Pringle PA-C [address] [place] [address] Cardiology 11/23/23 documented as of this encounter
--- OUTSIDE RECORDS SUMMARY | 2025-03-08 13:45 | XMS_ITS | Clinical Summary ---
Author Organization [employer] ([place], [place], [place], [place], [place]) Address [address] [place] [address] Care Team Providers Care Ed Special Education Teacher Name Role Phone Santosh Briones MD Primary Care Provider [phone] Julius Cho MD Unavailable Lew Ross MD Unavailable Karlos Pringle PA-C Unavailable [phone] Allergies Active Allergy Reactions Criticality Noted Date [...] Type Department Care Team Description 02/16/2025 Telephone [facility] Cardiology [address] [place] [address] Lesly Sanchez APRN Cardiac Clearance 01/27/2025 Telephone [facility] Cardiology [address] [place] [address] Lesly Sanchez APRN Advice Only 01/10/2025 Telephone [facility] Cardiology [address] [place] [phone] Lesly Sanchez, LAB SUPPORT TECH Medication Management 01/10/2025 Telephone [facility] Cardiology [address] [place] [phone] IoscoLesly loving, LAB SUPPORT TECH Advice Only 01/03/2025 Telephone [facility] Cardiology [address] [place] [phone] Lesly Sanchez, LAB SUPPORT TECH Medication Management 12/30/2024 9:30 AM EDT Office Visit [facility] Cardiology [address] [place] [phone] Lesly Sanchez, LAB SUPPORT TECH Coronary artery disease involving unga coronary artery of unga heart without angina pectoris (Primary Dx); Morbid obesity (HCC); ADONIS (obstructive sleep apnea) by history; Stasis, venous; Primary hypertension; Mixed hyperlipidemia; Lymphedema; Pre-operative cardiovascular examination 12/30/2024 Documentation [facility] Cardiology [address] [place] [phone] Dee Estevez 12/30/2024 Travel from Last 3 Months Immunizations Immunization Administration Dates Next Due Tdap 07/17/2022 Family History Medical History Relation Name Comments Clotting disorder Brother Torandall Jimenez Diabetes Brother Torandall Jimenez Heart disease Brother Josue Jimenez Hypertension [...] Do you speak a language other than American at [facility] [employer]? No 08/17/2023 Do you [...] Assigned at Female 03/19/2022 10:49 AM MANAGER METROLOGY Legal Sex Female 5:46 PM CDT Gender Identity Female 03/19/2022 10:49 AM MANAGER METROLOGY Sexual Orientation Not on file Last Filed [...] Description 04/06/2025 9:00 AM EST Office Visit [facility] Cardiology [address] [place] [address] [place] [address] [place] [address] [address] [place] [address] Health Maintenance Due Date Last Done Comments [...] Completed 01/28/2024 Medical Devices Implanted Type Area Legislators Device Identifier Shelf Expiration Date Model / Serial / Lot Base Tib 18mm [id number] - [id number] Implanted:Qty : 1 on 04/23/2022 by Massimo Blake, SHAHRAMM at [facility] IMPLANTS Left: Ankle ARIAS MED GRP:ARIAS MED TECH 03/13/[id number] / / [id number] Stem Mid Tib 16mm [id number] - [id number] Implanted:Qty : 2 on 04/23/2022 by Massimo Blake DPM at [facility] IMPLANTS Left: Ankle ARIAS MED GRP:ARIAS MED TECH 03/10/2030 / / [id number] Stem Top Tib 16mm [id number] - [id number] Implanted:Qty : 1 on 04/23/2022 by Massimo Blake DPM at [facility] IMPLANTS Left: Ankle ARIAS MED GRP:ARIAS MED TECH 05/20/[id number] / / [id number] Cement Bone Smplx Tobra 40gm 6197-9-001 - [id number] Implanted:Qty : 3 on 04/23/2022 by Massimo Blake DPM at [facility] IMPLANTS Left: Ankle GIUSEPPE:GIUSEPPE ORTHOPAEDICS 08/02/2023 6197-9-001 / / [id number] Tray Tib Sz4 L [id number] - [id number] Implanted:Qty : 1 on 04/23/2022 by Massimo Blake DPM at [facility] IMPLANTS Left: Ankle ARIAS MED GRP:ARIAS MED TECH 02/20/[id number] / / [id number] Dome Inbone Talar Sulcus Sz 3 - - [id number] Implanted:Qty : 1 on 04/23/2022 by Massimo Blake DPM at [facility] IMPLANTS Left: Ankle ARIAS MED GRP:ARIAS MED TECH 10/31/2028- / / [id number] Insrt Crosslnk Poly Sz3 [id number] - [id number] Implanted:Qty : 1 on 04/23/2022 by Massimo Blake DPM at [facility] IMPLANTS Left: Ankle ARIAS MED GRP:ARIAS MED TECH 02/17/2030 [id number] / / [id number] Stem Talar 10mm [id number] - [id number] Implanted:Qty : 1 on 04/23/2022 by Massimo Blake DPM at [facility] IMPLANTS Left: Ankle ARIAS MED GRP:ARIAS MED TECH 02/16/[id number] / / [id number] Bone Putty Stimulan [facility] 620-005 - [id number] Implanted:Qty : 1 on 08/18/2023 by Massimo Blake DPM at [facility] IMPLANTS Left: Ankle BIOCOMPOSITES 03/03/2026 620-005 / / [id number] Insurance [facility] MEDICARE ADVANTAGE Advance Directives For more information, please contact: [phone] * Full Code (Latest Code Status on [...] 5:35 PM 08/18/2023 5:58 PM Care Teams Ed Special Education Teacher Relationship Specialty Start Date End Date Santosh Briones MD [address] [place] [address] PCP - General General Internal Medicine 04/23/22 Julius Cho MD [address] [place] [address] Referring Physician Internal Medicine 04/23/22 Lew Ross MD [address] [facility] [address] [place] [address] Cardiology 08/13/23 Karlos Pringle PA-C [address], [facility] [address] [place] [address] Cardiology 11/23/23
--- OUTSIDE RECORDS SUMMARY | 2025-03-08 13:45 | XMS_ITS | Encounter Summary ---
Author Organization [employer] ([place], [place], [place], [place], [place]) Address [address] [place] [address] Care Team Providers Care Plastics Nurse Name Role Phone Santosh Briones MD Primary Care Provider [phone] Julius Cho MD Unavailable Lew Ross MD Unavailable Karlos Pringle PA-C Unavailable [phone] Reason for Visit * Reason Onset Date Comments Medication Management 01/03/2025 Encounter Details Date Type Department Care Team (Late st Contact Info) Description 01/03/2025 Telephone [facility] Cardiology [address] [place] [address] Lesly Sanchez, HVAC ESTIMATOR [address] [facility] [address] [place] [id number] Medication Management Social History Tobacco Use Types [...] Do you speak a language other than Sami at ho [place]? 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 RETAIL CLERK Legal Sex Female 5:46 PM CDT Gender Identity Female 03/19/2022 10:49 AM CUSTOMER EXPERIENCE RETAIL CLERK Sexual Orientation Not on file documented as of this encounter Miscellaneous Notes * Telephone Encounter - Sharece Crescencio - 01/10/2025 2:37 PM EDT Patient states [...] appeal throughon denial Please contact Valeria at [phone] documented in this encounter Plan of Treatment Upcoming Encounters Date Type Department Care Team (Late st Contact Info) Description 04/06/2025 9:00 AM EST Office Visit [facility] Cardiology [address] [place] [phone] Lew Ross MD [address] [place] [address] [place] [address] documented as of this encounter Visit Diagnoses Not on filedocumented in this encounter Care Teams Plastics Nurse Relationship Specialty Start Date End Date Santosh Briones MD [address] [facility] [place] [address] PCP - General General Internal Medicine 04/23/22 Julius Cho MD [address] [place] [address] Referring Physician Internal Medicine 04/23/22 Lew Ross MD [address] [place] [address] [place] [address] Cardiology 08/13/23 Karlos Pringle PA-C [address], [facility] [address] [place] [address] Cardiology 11/23/23 documented as of this encounter
--- OUTSIDE RECORDS SUMMARY | 2025-03-08 13:45 | XMS_ITS | Clinical Summary ---
Author Organization [facility] Address [address] [place] [address] Care Team Providers Care Combine Operator Name Role Phone Santosh Briones MD Primary Care Provider [phone] Social History Tobacco Use Types Packs/Day Years [...] Comments ANNUAL PHYSICAL 1963 Annual Gynecologic Pelvic and Breast Exam 1963 HEPATITIS C SCREENING 1963 MAMMOGRAM 2003 COLOGUARD 2008 COLON CANCER SCREENING 5 YEAR SIGMOIDOSCOPY 2008 COLONOSCOPY [address] CANCER SCREENING [address] COLONOGRAPHY 2008 FECAL OCCULT BLOOD TEST 2008 FIT Testing (1 year) 2008 Pneumococcal Vaccine 50+ (1 of 1 - PCV) 2013 ZOSTER VACCINE (2 of 2) 03/20/2023 01/23/2023 INFLUENZA VACCINE 12/02/2024 TDAP/TD VACCINES (2 - Td or Tdap) 07/17/2032 023 Insurance MEDICARE A & [facility] MEDICARE ADVANTAGE HMO NON PAR Care Teams Combine Operator Relationship Specialty Start Date End Date Santosh Briones MD PCP - General Internal Medicine 02/27/22
[2025-03-08 14:00] LABS: Hematocrit 38.1 % (37.0-47.0); Hemoglobin 12.0 g/dL (12.2-16.2); Immature Granulocytes % 0.3 %; Mean Corpuscular HGB Conc 31.5 g/dL (31.8-35.4); Mean Corpuscular Hemoglobin 28.5 pg (27.0-31.2); Mean Corpuscular Volume 90.5 fl (81-99); Nucleated Red Blood Cells % 0 %; Platelet Count 282 K/mm3 (142-424); Red Blood Count 4.21 M/mm3 (4.20-5.40); Red Cell Distribution Width-SD 51.8 fL; White Blood Count 6.3 K/mm3 (4.8-10.8)
[2025-03-08 15:06] LABS: Iron 72 ug/dL (37-170)
[2025-03-08 15:17] LABS: Total Iron Binding Capacity 224 ug/dL (265-497)
[2025-03-08 15:43] LABS: Ferritin 40.5 ng/ml (11.1-264)
== END 2025-03-08 23:59 | disposition home or self-care (01) ==
LOC: LAB 13:40
PROVIDERS: PCP Nurse Practitioner Family; Visit Provider Internal Medicine Medical Oncology
DX: D64.9 Anemia, unspecified (principal); Z86.718 Personal history of other venous thrombosis and embolism
CPT/HCPCS: 36415; 82728; 83540; 83550; 85025

== ENCOUNTER 2025-03-16 10:32 | Outpatient (CLI) | payer MEDICARE, SELFPAY ==
--- OUTSIDE RECORDS SUMMARY | 2025-01-16 08:30 | XMS_ITS | Encounter Summary ---
Author Organization Healthcare Address [address] [place] [address] Care Team Providers Care Recovery Coordinator Name Role Phone Abby Phillip RESEARCH ENGINEER [employer] Primary Care Provider [phone] Reason for Visit * Reason Comments Consult +GARRY * Consultation (Routine) - Closed Specialty Diagnoses / Procedures Referred By Mike martin Referred To Contact Rheumatology Diagnoses Positive GARRY (antinuclear antibody) Abby Phillip, RESEARCH ENGINEER [employer] [address] [place] [address] Phone: tel: fax: Referral ID Status Reason Start Date Expiration Date V isits Requested Visits Authorized [id number] Closed Specialty Services Required 12/28/2024 06/29/2026 1 1 Encounter Details Date Type Department Care Team (Late st Contact Info) Description 01/16/2025 9:30 AM EDT [facility] [address] [place] [address] Graeme, May R, RESEARCH ENGINEER [employer] [address] [place] [address] History of DVT (deep vein [...] makes pain worse. Active with Hematology in [place]. Had uterine biopsy on Thursday. Initial Rheumatological [...] Resource Strain: Low Risk (08/17/2023) Received from [facility] ([place], [place], [place], [place]) Financial Resource Strain How hard is it for you to pay for the very basics like food, housing, medical care, and heating? Would you say it is:: Not hard at all Food Insecurity: No Food Insecurity (08/17/2023) Received from [facility] ([place], [place]) Food Insecurity Within the past 12 months, you worried that your food would run out before you got money to buy more.: Never true Within the past 12 months, the food you bought just didn't last and you didn't have money to get more.: Never true Transportation Needs: No Transportation Needs (08/17/2023) Received from [facility] ([place], [place], [place]) Transportation Needs In the past 12 months, has lack of reliable transportation kept you from medical appointments, meetings, work or from getting things needed for daily living?: No Physical Activity: Inactive (08/17/2023) Received from [facility] ([place], [place], [place], [place]) Physical Activity Number of minutes of exercise per week : 0 Stress: Not on file Social Connections: Unknown (08/17/2023) Received from [facility] ([place], [place], [place]) Family and Community Support If for any reason you need help with day-to-day activities such as bathing, preparing meals, shopping, managing finances, etc., do you get the help you need?: I don't need any help Feeling Lonely or Isolated: 0 Intimate Partner Violence: Unknown (02/09/2023) Received from [facility] Abuse Screen Unsafe at Home or Work/School: Not on file Feels Threatened by Someone?: Not on file Does Anyone Keep You from Contacting Others or Doint Things Outside the Home?: Not on file Physical Sign of Abuse Present: Not on file Housing Stability: Unknown (02/09/2023) Received from [facility] Housing Stability Current Living Arrangements: Not on [...] Typing I reviewed MRI of Hip from [facility]. Tendonitis noted. No sacroiliitis. 4. Bilateral hip pain XR Sacroiliac Joints 3+ Views Records requested from [facility] MRI of Thoracic and Lumbar spine uploaded [...] Parts of this note were dictated using oLyfe Direct voice recognition software. As a result, errors may occur. When identified, these clerical support errors are corrected, but while every attempt is made to prevent/correct these, errors may still exist. [1] Past Medical History: Diagnosis Date Abdominal pannus 07/19/2018 Acute candidiasis of vulva and vagina 09/21/2023 Anemia 01/16/2025 Ankle pain, left 07/18/2022 Benign essential hypertension 08/26/2023 CAD (coronary artery disease) 08/17/2023 Chronic osteomyelitis involving ankle and foot ([facility]) 08/21/2023 Chronic ulcer of ankle ([facility]) 07/18/2022 Deep vein thrombosis (DVT) ([facility]) 09/06/2018 Excess skin of abdomen 07/19/2018 Hernia of abdominal wall 07/09/2012 History of arthroplasty of left ankle 04/23/2022 Iron deficiency anemia 01/16/2025 Low back pain over 5 years ago Lymphedema 01/16/2025 Morbid obesity due to excess calories ([facility]) 08/26/2023 Old myocardial infarction History of heart attack ADONIS (obstructive sleep apnea) 04/23/2022 Osteoarthritis diagnosed 2021 Osteomyelitis of left foot ([facility]) 08/17/2023 Osteoporosis 2021 Pain management 04/23/2022 Personal history of other diseases of the circulatory system History of irregular heartbeat Personal history of other venous thrombosis and embolism History of blood clots Plantar fasciitis 2021 Sciatica 2022 Scleroderma ([facility]) 2021 Scleroderma ([facility]) 08/17/2023 Stasis, venous 07/18/2022 [2] Past [...] on 01/16/2025 10:53 AM may R Graeme RESEARCH ENGINEER [employer] IMG XR PROCEDURES Final Res ult * (ABNORMAL) Urinalysis with reflex microscopic (Culture NOT Included) (01/16/2025 10:16 AM EDT) Color, Urine Yellow LAB URINALYSIS - AUTOMATED METHOD 01/16/2025 11:59 AM EDT [facility] Clarity, Urine Clear LAB URINALYSIS - AUTOMATED METHOD 01/16/2025 11:59 AM EDT [facility] Spec [place], Urine 1.013 1.005 - 1.030 LAB URINALYSIS - AUTOMATED METHOD 01/16/2025 11:59 AM EDT [facility] pH, Urine 6.0 5.0 - 8.0 LAB URINALYSIS - AUTOMATED METHOD 01/16/2025 11:59 AM EDT [facility] Protein, Urine Negative Negative mg/dL LAB URINALYSIS - AUTOMATED METHOD 01/16/2025 11:59 AM EDT [facility] Glucose, Urine Negative Negative mg/dL LAB URINALYSIS - AUTOMATED METHOD 01/16/2025 11:59 AM T [facility] Ketones, Urine Negative Negative mg/dL LAB URINALYSIS - AUTOMATED METHOD 01/16/2025 11:59 AM T [facility] Blood, Urine Large(A) Negative LAB URINALYSIS - AUTOMATED METHOD 01/16/2025 11:59 AM T [facility] Bilirubin, Urine Negative Negative LAB URINALYSIS - AUTOMATED METHOD 01/16/2025 11:59 AM T [facility] Urobilinogen, Urine 0.2 0.2 to 1.0 mg/dL LAB URINALYSIS - AUTOMATED METHOD 01/16/2025 11:59 AM T [facility] Leukocytes, Urine Small(A) Negative LAB URINALYSIS - AUTOMATED METHOD 01/16/2025 11:59 AM T [facility] Nitrite, Urine Negative Negative LAB URINALYSIS - AUTOMATED METHOD 01/16/2025 11:59 AM T [facility] RBC, Urine 11 - 15(A) 0 to 3 /HPF LAB URINALYSIS - AUTOMATED METHOD 01/16/2025 11:59 AM T [facility] WBC, Urine 6 - 10(A) 0 to 5 /HPF LAB URINALYSIS - AUTOMATED METHOD 01/16/2025 11:59 AM T [facility] Squamous Epithelial Cells 11 - 20(A) 0 to 5 /HPF LAB URINALYSIS - AUTOMATED METHOD 01/16/2025 11:59 AM T [facility] Hyaline Casts 0 - 2 0 to 5 /LPF LAB URINALYSIS - AUTOMATED METHOD 01/16/2025 11:59 AM [facility] Bacteria, Urine Negative Negative LAB URINALYSIS - AUTOMATED METHOD 01/16/2025 11:59 AM [facility] Urine Urine specimen obtained by clean catch procedure / Unknown Non-blood Collection / Unknown 01/16/2025 10:16 AM EDT 01/16/2025 10:16 AM EDT May R Graeme RESEARCH ENGINEER [employer] LAB URINE ORDERABLES Final Result [facility] [address] [place] [address] * Protein, Random, Urine with Creatinine (01/16/2025 10:16 AM EDT) Protein, Urine 6 mg/dL 01/16/2025 12:12 PM EDT [facility] Creatinine, Urine 34 mg/dL 01/16/2025 12:12 PM EDT [facility] Protein/Creatin ine Ratio 0.2 mg/mg Creat 01/16/2025 12:12 PM EDT [facility] Urine Urine specimen obtained by clean catch procedure / Unknown Non-blood Collection / Unknown 01/16/2025 10:16 AM EDT 01/16/2025 10:16 AM EDT us May R Graeme RESEARCH ENGINEER [employer] LAB URINE ORDERABLES Final Result Performing Organization Address City/[facility]/ZIP Co de Phone Number [facility] [address] [place] [address] * Cyclic Citrul Peptide Antibody IgG (01/16/2025 10:15 AM EDT) [facility] Cyclic Citrul Peptide Antibody IgG <5.0 <=5.0 U/mL 01/16/2025 3:17 PM EDT [facility] Blood Venous blood specimen / Unknown Venipuncture / Unknown 01/16/2025 10:15 AM EDT 01/16/2025 10:15 AM EDT May R Graeme RESEARCH ENGINEER [employer] LAB BLOOD ORDERABLES Final Result [facility] [address] [place] [address] * Rheumatoid Factor, Plasma (01/16/2025 10:15 AM EDT) Rheumatoid Factor, Plasma <10 <14 IU/mL 01/16/2025 1:24 PM EDT [facility] Blood Venous blood specimen / Unknown Venipuncture / Unknown 01/16/2025 10:15 AM EDT 01/16/2025 10:15 AM EDT may R Graeme [place] LAB BLOOD ORDERABLES Final Result Performing Organization Address [facility]/ZIP Co de Phone Number [facility] [address] [place] [address] * HLA B27 Typing (01/16/2025 10:15 AM EDT) Blood Venous blood specimen / Unknown Venipuncture / Unknown 01/16/2025 10:15 AM EDT 01/16/2025 10:15 AM EDT may Graeme [place] LAB BLOOD ORDERABLES Final Result Performing Organization Address [facility] Co de Phone Number [facility] [address] [place] [address], * Thyroid Stimulating Hormone, Plasma (01/16/2025 10:15 AM EDT) Thyroid Stimulating Hormone, Plasma 0.48 0.40 - 4.20 uIU/mL 01/16/2025 1:24 PM EDT [facility] Blood Venous blood specimen / Unknown Venipuncture / Unknown 01/16/2025 10:15 AM EDT 01/16/2025 10:15 AM EDT may R Graeme [place] LAB BLOOD ORDERABLES Final Result [facility] [address] [place] [address] * Thyroid Peroxidase Antibody (01/16/2025 10:15 AM EDT) Thyroid Peroxidase Antibody <5 <=8 IU/mL 01/16/2025 1:57 PM EDT [facility] Blood Venous blood specimen / Unknown Venipuncture / Unknown 01/16/2025 10:15 AM EDT 01/16/2025 10:15 AM EDT May R Graeme [place] LAB BLOOD ORDERABLES Final Result [facility] [address] [place] [address] * Baker (DANICA) Antibody, IgG (01/16/2025 10:15 AM EDT) Baker (DANICA) Antibody, IgG 2 0 - 40 AU/mL 01/19/2025 1:10 PM EDT [facility] ([place]) Serum 01/16/2025 10:1 5 AM EDT 01/16/2025 10:15 AM EDT Narrative [facility] ([place]) - 01/19/2025 1:10 PM EDT INTERPRETIVE INFORMATION: Baker (DANICA) Antibody, IgG 29 AU/mL or Less ............. Negative 30 - 40 AU/mL ................ Equivocal 41 AU/mL or Greater .......... Positive Baker antibody is highly specific (greater than 90 percent) for systemic lupus erythematosus (SLE) but only occurs in 30-35 percent of SLE cases. The presence of antibodies to Baker has variable associations with SLE clinical manifestations. Performed By: [facility] [address] [place] [address] Certified Medical Dosimetrist: El Duarte MD, PhD CLIA Number: [id number] May R Graeme [place] [facility] REF LAB BLOOD AND FLUID ORD Final Result [facility] ([place]) [address] [place] [address] * ENAII (01/16/2025 10:15 AM EDT) SSA-52 (RO52) (DANICA) Antibody, IgG 1 0 - 40 AU/mL 01/19/2025 1:10 PM EDT [facility] ([place]) SSA-60 (RO60) (ADNICA) Antibody, IgG 0 0 - 40 AU/mL 01/19/2025 1:10 PM EDT [facility] ([place]) SSB (LA) (DANICA) Antibody, IgG 0 0 - 40 AU/mL 01/19/2025 1:10 PM EDT [facility] ([place]) Blood Venous blood specimen / Unknown Venipuncture / Unknown 01/16/2025 10:15 AM EDT 01/16/2025 10:15 AM EDT Narrative [facility]) - 01/19/2025 1:10 PM EDT INTERPRETIVE INFORMATION: [...] (PSS) also have this antibody. Performed By: [facility] [address] [place] [address] Certified Medical Dosimetrist: El Duarte MD, PhD CLIA Number: [id number] May R Graeme RESEARCH ENGINEER [employer] LAB BLOOD ORDERABLES Final Result Performing Organization Address City/[facility]/ZIP Co de Phone Number [facility] ([place]) [address] [place] [address] * ENAI (01/16/2025 10:15 AM EDT) Baker/ENGINE SETTER (DANICA) Ab, IgG 2 0 - 19 Units 01/18/2025 2:39 PM EDT [facility] ([facility]) Blood Venous blood specimen / Unknown Venipuncture / Unknown 01/16/2025 10:15 AM EDT 01/16/2025 10:15 AM EDT Narrative [facility] ([facility]) - 01/18/2025 2:39 PM EDT INTERPRETIVE INFORMATION: Baker/ENGINE SETTER (DANICA) Antibody, IgG 19 Units or Less ............. Negative 20 to 39 Units ............... Weak Positive 40 to 80 Units ............... Moderate Positive 81 Units or greater .......... Strong Positive Baker/ENGINE SETTER antibodies are frequently seen in patients with mixed connective tissue disease (MCTD) and are also associated with other systemic autoimmune rheumatic diseases (SARDs) such as systemic lupus erythematosus (SLE), systemic sclerosis, and myositis. Antibodies targeting the Baker/ENGINE SETTER antigenic complex also recognize Baker antigens, therefore, the Baker antibody response must be considered when interpreting these results. Performed By: [facility] [address] [place] [address] Certified Medical Dosimetrist: El Duarte MD, PhD CLIA Number: [id number] may Graeme RESEARCH ENGINEER [employer] LAB BLOOD ORDERABLES Final Result Performing Organization Address [facility]/ZIP Co de Phone Number [facility] ([place]) [address] [place] [address] * (ABNORMAL) CBC and Differential (01/16/2025 10:15 AM EDT) WBC Count 6.41 3.70 - 10.30 10*3/uL LAB HEMATOLOGY METHOD 01/16/2025 11:33 AM EDT [facility] RBC Count 3.88(L) 3.90 - 5.20 10*6/uL LAB HEMATOLOGY METHOD 01/16/2025 11:33 AM EDT [facility] HGB 10.0(L) 11.2 - 15.7 g/dL LAB HEMATOLOGY METHOD 01/16/2025 11:33 AM EDT [facility] HCT 33.6(L) 34.0 - 45.0 % LAB HEMATOLOGY METHOD 01/16/2025 11:33 AM EDT [facility] Platelet Count 277 155 - 369 10*3/uL LAB HEMATOLOGY METHOD 01/16/2025 11:33 AM EDT [facility] MCV 87 79 - 98 fL LAB HEMATOLOGY METHOD 01/16/2025 11:33 AM EDT [facility] MCH 25.8(L) 26.0 - 32.0 pg LAB HEMATOLOGY METHOD 01/16/2025 11:33 AM EDT [facility] MCHC 29.8(L) 30.7 - 35.5 g/dL LAB HEMATOLOGY METHOD 01/16/2025 11:33 AM EDT [facility] RDW 15.9(H) 11.5 - 14.5 % LAB HEMATOLOGY METHOD 01/16/2025 11:33 AM EDT [facility] MPV 9.6 8.8 - 12.5 fL LAB HEMATOLOGY METHOD 01/16/2025 11:33 AM EDT [facility] nRBC 0.0 <=0.0 per 100 WBCs LAB HEMATOLOGY METHOD 01/16/2025 11:33 AM EDT [facility] Differential Type Automated LAB HEMATOLOGY METHOD 01/16/2025 11:33 AM EDT [facility] Neutrophils % 61 % LAB HEMATOLOGY METHOD 01/16/2025 11:33 AM EDT [facility] Lymphocytes % 28 % LAB HEMATOLOGY METHOD 01/16/2025 11:33 AM EDT [facility] Monocytes % 8 % LAB HEMATOLOGY METHOD 01/16/2025 11:33 AM EDT [facility] Eosinophils % 1 % LAB HEMATOLOGY METHOD 01/16/2025 11:33 AM EDT [facility] Basophils % 1 % LAB HEMATOLOGY METHOD 01/16/2025 11:33 AM EDT [facility] Immature Granulocytes % 1 % LAB HEMATOLOGY METHOD 01/16/2025 11:33 AM EDT [facility] Neutrophils Absolute 3.95 1.60 - 6.10 10*3/uL LAB HEMATOLOGY METHOD 01/16/2025 11:33 AM EDT [facility] Lymphocytes Absolute 1.77 1.20 - 3.90 10*3/uL LAB HEMATOLOGY METHOD 01/16/2025 11:33 AM EDT [facility] Monocytes Absolute 0.50 0.30 - 0.90 10*3/uL LAB HEMATOLOGY METHOD 01/16/2025 11:33 AM EDT [facility] Eosinophils Absolute 0.09 0.00 - 0.50 10*3/uL LAB HEMATOLOGY METHOD 01/16/2025 11:33 AM EDT [facility] Basophils Absolute 0.04 0.00 - 0.10 10*3/uL LAB HEMATOLOGY METHOD 01/16/2025 11:33 AM EDT [facility] Immature Granulocytes Absolute 0.06 0.00 - 0.06 10*3/uL LAB HEMATOLOGY METHOD 01/16/2025 11:33 AM EDT [facility] Blood Venous blood specimen / Unknown Venipuncture / Unknown 01/16/2025 10:15 AM EDT 01/16/2025 10:15 AM EDT Narrative [facility] - 01/16/2025 11:33 AM EDT Therapeutic decision making should be based on absolute values, rather than percentages. May Graeme RESEARCH ENGINEER [employer] LAB BLOOD ORDERABLES Final Result [facility] [address] [place] [address] * (ABNORMAL) C4 Complement (01/16/2025 10:15 AM EDT) C4 Complement 37(H) 13 - 36 mg/dL 01/16/2025 1:19 PM EDT [facility] Blood Venous blood specimen / Unknown Venipuncture / Unknown 01/16/2025 10:15 AM EDT 01/16/2025 10:15 AM EDT May R [facility] LAB BLOOD ORDERABLES Final Result [facility] [address] [place] [address] * C3 Complement (01/16/2025 10:15 AM EDT) C3 Complement 144 84 - 166 mg/dL 01/16/2025 1:19 PM EDT [facility] Blood Venous blood specimen / Unknown Venipuncture / Unknown 01/16/2025 10:15 AM EDT 01/16/2025 10:15 AM EDT May R [facility] LAB BLOOD ORDERABLES Final Result Performing Organization Address City/[facility] Co de Phone Number [facility] [address] [place] [address] * Double-Stranded DNA (dsDNA) Antibody, IgG by IFA (01/16/2025 10:15 AM EDT) Double-Strande d DNA (dsDNA) Ab IgG IFA <1:10 <1:10 01/18/2025 11:57 PM EDT [facility] ([place]) Blood Venous blood specimen / Unknown Venipuncture / Unknown 01/16/2025 10:15 AM EDT 01/16/2025 10:15 AM EDT Narrative [facility] ([place]) - 01/18/2025 11:57 PM EDT INTERPRETIVE [...] recommendations for testing may be found at [email or web address]/[email or web address]. Performed By: [facility] [address] [place] [address] Certified Medical Dosimetrist: El Duarte MD, PhD CLIA Number: [id number] may Graeme [employer]EARCH ENGINE[employer] LAB BLOOD ORDERABLES Final Result [facility] ([place]) [address] [place] [address] * Antinuclear Antibody (GARRY), HEp-2, IgG (01/16/2025 10:15 AM EDT) GARRY INTERPRETIVE COMMENT See Note 01/18/2025 8:40 AM EDT [facility] ([place]) Anti Nuc Ab Screen <1:80 <1:80 01/18/2025 8:40 AM EDT [facility] ([place]) Blood Venous blood specimen / Unknown Venipuncture / Unknown 01/16/2025 10:15 AM EDT 01/16/2025 10:15 AM EDT Narrative [facility]) - 01/18/2025 8:40 AM EDT Clinical Interpretation: [...] not necessarily rule out SARD. Performed By: [facility] [address] [place] [address] Certified Medical Dosimetrist: El Duarte MD, PhD CLIA Number: [id number] May R Graeme [employer]EARCH ENG[employer] LAB BLOOD ORDERABLES Final Result [facility] ([place]) [address] [place] [address] * RPR With Reflex to Titer (01/16/2025 10:15 AM EDT) [facility] Rapid Plasma Reagin Nonreactive Non Reactive 01/17/2025 12:43 AM EDT [facility] Blood Venous blood specimen / Unknown Venipuncture / Unknown 01/16/2025 10:15 AM EDT 01/16/2025 10:15 AM EDT May R [facility] LAB BLOOD ORDERABLES Final Result [facility] [address] [place] [address] * (ABNORMAL) Lupus Anticoagulant Profile (01/16/2025 10:15 AM EDT) [facility] Lupus Anticoagulant Result Lupus anticoagulant (LA) not detected by either LA-sensitive aPTT or dRVVT assays. If clinical suspicion for antiphospholipid syndrome is high, consider testing for antibodies against cardiolipin and [id number] n I. 01/17/2025 11:38 AM EDT [facility] aPTT Lupus Anticoagulant Sensitive 36.9 <=41.0 sec LAB COAGULATION METHOD 01/17/2025 11:38 AM EDT [facility] DRVVT Screen 52.4 sec LAB COAGULATION METHOD 01/17/2025 11:38 AM EDT [facility] DRVVT Screen Ratio 1.39(H) <1.20 LAB COAGULATION METHOD 01/17/2025 11:38 AM EDT [facility] DRVVT Confirmation 53.3 sec LAB COAGULATION METHOD 01/17/2025 11:38 AM EDT [facility] DRVVT Confirmation Ratio 1.53 LAB COAGULATION METHOD 01/17/2025 11:38 AM EDT [facility] DRVVT Screen Ratio/Confirmat ion Ratio 0.91 <1.20 LAB COAGULATION METHOD 01/17/2025 11:38 AM EDT [facility] Blood Venous blood specimen / Unknown Venipuncture / Unknown 01/16/2025 10:15 AM EDT 01/16/2025 10:15 AM EDT may Graeme [employer]EARCH ENG[employer] LAB BLOOD ORDERABLES Final Result Performing Organization Address [facility] Co de Phone Number [facility] [address] [place] [address] * Anticardiolipin IgG and IgM (01/16/2025 10:15 AM EDT) IgG Anticardiolipin 2.00 <20.00 GPL Units/mL 01/16/2025 3:19 PM EDT [facility] Anticardiolipin IgG Interpretation Negative Negative 01/16/2025 3:19 PM EDT [facility] IgM Anticardiolipin <1.50 <20.00 MPL Units/mL 01/16/2025 3:19 PM EDT [facility] Anticardiolipin IgM Interpretation Negative Negative 01/16/2025 3:19 PM EDT [facility] Blood Venous blood specimen / Unknown Venipuncture / Unknown 01/16/2025 10:15 AM EDT 01/16/2025 10:15 AM EDT may Graeme [employer] LAB BLOOD ORDERABLES Final Result Performing Organization Address City/[facility]/ZIP Co de Phone Number [facility] [address] [place] [address] * Cardiolipin antibody, IgA (01/16/2025 10:15 AM EDT) Cardiolipin Antibody IgA <10 <=11 APL 01/19/2025 12:32 PM EDT [facility] ([place]) Blood Venous blood specimen / Unknown Venipuncture / Unknown 01/16/2025 10:15 AM EDT 01/16/2025 10:15 AM EDT Narrative [facility] ([place]) - 01/19/2025 12:32 PM EDT INTERPRETIVE INFORMATION: Cardiolipin Antibodies, IgA <=11 APL: Negative 12-19 APL: Indeterminate 20-80 APL: Low to Moderately Positive 81 APL or above: High Positive Performed By: [facility] [address] [place] [address] Certified Medical Dosimetrist: El Duarte MD, PhD CLIA Number: [id number] May Graeme [facility] LAB BLOOD ORDERABLES Final Result Performing Organization Address City/[facility]/ZIP Co de Phone Number [facility] ([place]) [address] [place] [address] * Anti-Beta 2 Glycoprotein, IgG and IgM (01/16/2025 10:15 AM EDT) Pathologist [facility] Anti-Beta 2 Glycoprotein 1, IgG 2.2 <20.0 U/mL 01/16/2025 3:19 PM EDT [facility] Anti-Beta 2 Glycoprotein IgG Interpretation Negative Negative 01/16/2025 3:19 PM EDT [facility] Anti-Beta 2 Glycoprotein 1, IgM <1.5 <20.0 U/mL 01/16/2025 3:19 PM EDT [facility] Anti-Beta 2 Glycoprotein IgM Interpretation Negative Negative 01/16/2025 3:19 PM EDT [facility] Blood Venous blood specimen / Unknown Venipuncture / Unknown 01/16/2025 10:15 AM EDT 01/16/2025 10:15 AM EDT May Graeme [facility] LAB BLOOD ORDERABLES Final Result [facility] [address] [place] [address] * Beta-2 Glycoprotein 1 Antibody, IgA (01/16/2025 10:15 AM EDT) [id number] 1, IgA Antibody <10 <=20 KAORN 01/18/2025 4:33 AM EDT [facility] ([place]) Serum 01/16/2025 10:1 5 AM EDT 01/16/2025 10:15 AM EDT Narrative [facility] ([place]) - 01/18/2025 4:33 AM EDT Performed By: [facility] [address] [place] [address] Certified Medical Dosimetrist: El Duarte MD, PhD CLIA Number: [id number] May Graeme RESEARCH ENGINEER [facility] BLOOD ORDERABLES Final Result [facility] [address] [place] [address] documented in this encounter Visit Diagnoses Diagnosis [...] documented as of this encounter Care Teams Recovery Coordinator Relationship Specialty Start Date End Date Abby Phillip APRN [address] [place] [address] PCP - General 01/03/25 documented as of this encounter
--- OUTSIDE RECORDS SUMMARY | 2025-01-16 09:18 | XMS_ITS | Encounter Summary ---
Author Organization Healthcare Address [address] [place] [address] Care Team Providers Care [employer] Officer Name Role Phone Abby Phillip CRISTOFER Primary Care Provider [phone]- [phone] Encounter Details Date Type Department Care Team (Latest Contact Info) Description 01/16/2025 10:18 AM EDT - 01/16/2025 11:59 PM EDT [facility] En[facility] [address], [address] [place] [phone] Bilateral hip pain Discharge Disposition: Home or Self Care Social History Tobacco Use Types Packs/Day Years [...] on file documented as of this encounter Medications at Time of Discharge acetaminophen (Tylenol 8 Hour) 650 MG ER tablet Take 1 tablet by mouth. apixaban (Eliquis) 5 MG tablet Take 1 tablet by mouth twice a day. 09/06/2018 ASPIRIN 81 MG chewable tablet Chew 1 tablet 1 time each day. cholecalciferol (Vitamin D3) 5,000 Units tablet Take 1 tablet by mouth 1 time each day. DULoxetine (Cymbalta) [address] capsule Take 1 capsule by mouth 1 time each day. 12/27/2024 folic acid (Folvite) 400 MCG tablet Take 2 tablets by mouth 1 time each day. furosemide (Lasix) 40 MG tablet Take 1 tablet by mouth 1 time each day. 07/19/2018 gabapentin (Neurontin) 300 MG capsule Take 1 capsule by mouth 3 times a day. ibandronate (Boniva) 150 MG tablet Take 1 tablet by mouth. ibuprofen 800 MG tablet TAKE ONE TABLET BY MOUTH EVERY 8 HOURS NEEDED FOR PAIN --TAKE WITH FOOD-- LANSOPRAZOLE PO 07/19/2018 methocarbamol (Robaxin) 750 MG tablet Take 1 tablet by mouth 3 times a day. minocycline 100 MG capsule 12/27/2024 oxyCODONE (Roxicodone) 5 MG immediate release tablet as needed. 01/13/2025 pantoprazole (Protonix) 40 MG EC tablet 12/02/2024 documented as of this encounter Plan of Treatment Not on file documented as of this encounter Procedures Procedure Name Priority Date/Time Associated Diagnosis Comments XR SACROILIAC JOINTS 3+ VIEWS Routine 01/16/2025 10:29 AM EDT Bilateral hip pain documented in this encounter Results * XR Sacroiliac Joints [...] Jam Lopez MD on 01/16/2025 10:53 AM May R Graeme CASE WORKER IMG XR PROCEDURES Final Res ult documented in this encounter Visit Diagnoses Diagnosis Bilateral hip pain Pain in joint, pelvic region and thigh documented in this encounter Additional Health Concerns Assessment Noted Time A fall risk assessment has been complete d for the patient 01/16/2025 9:07 AM EDT A Body Mass Index follow-up plan has been documented for the patient 01/16/2025 11:01 AM EDT documented as of this encounter Care Teams [employer] Relationship Specialty Start Date End Date Abby Phillip APRN [address] [place] [address] PCP - General 01/03/25 documented as of this encounter
--- OUTSIDE RECORDS SUMMARY | 2025-03-16 11:01 | XMS_ITS | Clinical Summary ---
Author Organization [facility] Address [address] [place] [address] Phone Care Team Providers Care Health Workers Name Role Phone Chris Nunn MD [ ] Conditions or Problems Problem Name Problem Code Onset Date Status Entry Date Provider Comment Standard Description Annotate Hx of pulmonary embolism 478213786 (SNOMED CT) 08/25 Resolved 08/25 Natalia Herron H/O: pulmonary embolus Morbid obesity due to excess calories E66.01 (ICD-10-CM ) 08/25 Active 08/25 Natalia Herron Morbid (severe) obesity due to excess calories Benign Essential Hypertension 43757173 (SNOMED CT) 08/25 Active 08/25 Natalia Herron Benign hypertension Candidiasis of vulva and vagina, acute B37.31 (ICD-10-CM ) 09/20 Active 09/20 Natalia Herron Acute candidiasis of vulva and vagina Yeast infection 8109265 (SNOMED CT) 09/20 Inactive 09/20 Chris Nunn MD Mycosis Scleroderma 54943435 (SNOMED CT) 08/25 Active 08/25 Dania Faulkner Systemic sclerosis Personal history of allergy Bactrim 152217866 (SNOMED CT) 08/25 Active 08/25 Dania Faulkner Allergy to antibacterial drug catalyst unit operator current use of anticoagulan ts 457459094 (SNOMED CT) 08/25 Active 08/25 Dania Faulkner Drug therapy finding Hx of pulmonary embolism 590375018 (SNOMED CT) 08/25 Removed 08/25 Dania Faulkner H/O: pulmonary embolus Presence of left artificial ankle joint 544621174 (SNOMED CT) 08/25 Active 08/25 Dania Faulkner Prosthetic total arthroplasty of ankle Morbid obesity 718125340 (SNOMED CT) 08/25 Inactive 08/25 Dania Faulkner Morbid obesity CAD (coronary artery disease) 14339121 (SNOMED CT) 08/25 Active 08/25 Dania Faulkner Coronary arteriosclerosis Hypertension 92879640 (SNOMED CT) 08/25 Inactive 08/25 Dania Faulkner Hypertensive disorder Chronic ulcer of left ankle, skin layer only 468728409 (SNOMED CT) 08/25 Active 08/25 Dania Faulkner Chronic ulcer of ankle Cellulitis of left lower limb 865286362 (SNOMED CT) 08/20 Active 08/20 Dania Faulkner Cellulitis of leg, excluding foot Chronic osteomyeliti s, left ankle 306409723 (SNOMED CT) 08/20 Active 08/20 Dania Faulnker Chronic osteomyelitis of ankle and/or foot Medications Medication Instructions Start Date Stop Date Generic Name NDC Provider MINOCYCLINE HCL 100 MG TABS Take 1 tablet by mouth once a day minocycline 09872544876 Chris Nunn MD Diflucan 200 mg tablet 1 tablet by mouth once a day as needed for yeast infection fluconazole 29084773961 Chris Nunn MD DOXYCYCLINE HYCLATE 100 MG CAPS 1 capsule by mouth once a day doxycycline hyclate 76845998466 Chris Nunn MD FOLIC ACID 400 MCG TABS Take 2 tablet by mouth once a day folic acid 70060998867 Margaret Bermudez ACETAMINOPHEN 500 MG TABS Take 1 tablet by mouth every six hours as needed acetaminophen 00103079025 Margaret Bermudez NATURAL VITAMIN D-3 125 MCG (5000 UT) TABS Take 1 tablet by mouth once a day cholecalciferol (vitamin d3) 46523725491 Margaret Bermudez ASPIRIN LOW DOSE 81 MG TBEC Take 1 tablet by mouth once a day aspirin 98697999077 Margaret Bermudez FUROSEMIDE 40 MG TABS Take 1 tablet by mouth once a day furosemide 57611101366 Margaret Bermudez apixaban (Eliquis) 5 mg Tab tablet Take 1 tablet by mouth twice a day Eliquis Margaret Bermudez PANTOPRAZOLE SODIUM 40 MG TBEC Take 1 tablet by mouth once a day pantoprazole 35589634155 Margaret Bermudez VITAMIN B-12 1000 MCG TABS Take 1 tablet by mouth once a day cyanocobalamin (vitamin b-12) 16441350379 Margaret Bermudez SACCHAROMYCES BOULARDII 250 MG CAPS Take 1 capsule (250 mg total) by mouth 2 (two) times daily for 7 days. saccharomyces boulardii 26578749271 QIE qieuser PANTOPRAZOLE SODIUM 40 MG TBEC Take 1 tablet (40 mg total) by mouth daily. pantoprazole 29320644135 QIE qieuser FUROSEMIDE 40 MG TABS Take 1 tablet (40 mg total) by mouth daily. furosemide 79230158096 QIE qieuser FOLIC ACID 400 MCG TABS Take 2 tablets (800 mcg total) by mouth daily. folic acid 59586965322 QIE qieuser VITAMIN B-12 1000 MCG TABS Take 1 tablet (1,000 mcg total) by mouth daily. cyanocobalamin (vitamin b-12) 39613076402 QIE qieuser NATURAL VITAMIN D-3 125 MCG (5000 UT) TABS Take 1 tablet (5,000 Units total) by mouth daily. cholecalciferol (vitamin d3) 92303919840 QIE qieuser ASPIRIN LOW DOSE 81 MG TBEC Take 1 tablet (81 mg total) by mouth daily. aspirin 91596430214 QIE qieuser apixaban (Eliquis) 5 mg Tab [...] down for the next 30 min.. alendronate 38601826814 QIE qieuser ACETAMINOPHEN 500 MG TABS Take 1 tablet (500 mg total) by mouth every 6 (six) hours as needed for up to 10 days. acetaminophen 50246605618 QIE qieuser Cubicin RF 500 mg intravenous solution 500mg IV Q24hrs/ OPAT daptomycin 84037309253 Jasmin Proctor RN CEFTRIAXONE SODIUM 2 GM SOLR 2gm IV Q24hrs/ OPAT ceftriaxone 85214065259 Jasmin Proctor RN Medications Administered No information [...] Procedures Code Procedure Name Date Entry Date CPT-51097 CMP [id number] CBC with Differential 2023 CPT-73084 C- reactive protein CPT-92972 Sedimentation Rate (ESR) 202 08/10/07 CPT-coral Change [...]
--- OUTSIDE RECORDS SUMMARY | 2025-03-16 11:02 | XMS_ITS | Encounter Summary ---
Author Organization [employer] ([place], [place], [place], [place], [place]) Address [address] [place] [address] Care Team Providers Care Deck Steward Name Role Phone Santosh Briones MD Primary Care Provider [phone] Santosh Briones MD Primary Care Provider [phone] Julius Cho MD Unavailable Lew Ross MD Unavailable Karlos Pringle PA-C Unavailable [phone] Encounter Details Date Type Department Care Team (Late st Contact Info) Description 12/19/2020 Transcribed Document [facility] [place] [address] ProviderAle MD [address] [place] [id number] Social History Tobacco Use Types Packs/Day Years Used Date Smoking Tobacco: Never Assessed Comments Unknown Sex and Gender Information Value Date Recorded Sex Assigned at Female 03/19/2022 10:49 AM HEADER SETUP OPERATOR Legal Sex Female 5:46 PM CDT Gender Identity Female 03/19/2022 10:49 AM HEADER SETUP OPERATOR Sexual Orientation Not on file documented as of this encounter Miscellaneous Notes * Cerner Conversion Note - Historical ProviderMD - 12/19/2020 8:35 AM CDT [facility] Main OR PACU Summary Primary Physician: MEE TUCKER, DPM-POD Finalized Date/Time: 12/21/20 20:53:34 Pt. Name: JANIS FIGUEREDO BILLIE DumontO.B./Sex: 1965 Female Med Rec #: [id number] Physician: MEE TUCKER, DPM-POD Financial #: [id number] Pt. Type: O Room/Bed: /9 Admit/Disch: 12/19/20 06:32:00 - 12/19/20 12:11:00 Institution: [facility] Main OR PACU I Case Times Entry 1 In PACU I 12/19/20 10:25:00 Ready for PACU 12/19/20 11:05:00 Discharge Discharge from PACU 12/19/20 11:08:00 I Last Modified By: Sunshine Rowland RN-PATIENT CARE BEDSIDE NON-EXEMPT 12/19/20 11:55:39 [facility] Main OR PACU Acuity Entry 1 Start Time 12/19/20 11:05:00 Stop Time 12/19/20 11:08:00 Acuity Level [facility] PACU Acuity I Last Modified By: Letitia Dugan, Nurse Bulk Tank Car Unloader 12/21/20 20:53:32 [facility] Main OR PACU Acuity Audit 12/21/20 20:53:32 [employer] Architect: [id number] Modifier: [id number] <*> Start Time 12/19/20 10:25:00 Finalized By: Letitia Dugan, Nurse Automotive Starter Repairer Signatures Signed By: Sunshine Rowland RN-PATIENT CARE BEDSIDE NON-EXEMPT 12/19/20 11:55 Letitia Dugan, Nurse Bulk Tank Car Unloader 12/21/20 20:53 Unfinalized History Date/Time Username Reason for Unfinalizing Freetext Reason for Unfinalizing 12/21/20 20:53 [id number] Correct Billing Electronically signed by Everardo [facility] Conversion Interactive Media Director Cerner at 08/22/2022 3:52 PM CDT documented in this encounter Plan of Treatment Upcoming Encounters Date Type Department Care Team (Late st Contact Info) Description 04/06/2025 9:00 AM EST Office Visit [facility] Cardiology [address] [place] [id number] Lew Ross MD [address] [place] [address] [address] [place] [address] documented as of this encounter Visit Diagnoses Not on filedocumented in this encounter Care Teams Deck Steward Relationship Specialty Start Date End Date Santosh Briones MD [address] [place], [place] [id number] PCP - General General Internal Medicine 04/18/22 04/22/22 Santosh Briones MD [address] [facility] [address] [place], [place] [id number] PCP - General General Internal Medicine 04/23/22 Julius Cho MD [address] [address] Referring Physician Internal Medicine 04/23/22 Lew Ross MD [address] [facility] [address] [place], [place] [id number] Cardiology 08/13/23 Karlos Pringle PA-C [address] [place] [address], [facility] [address] [place] [address] Cardiology 11/23/23 documented as of this encounter
--- OUTSIDE RECORDS SUMMARY | 2025-03-16 11:02 | XMS_ITS | Encounter Summary ---
Author Organization [employer] ([place], [place], [place], [place], [place]) Address [address] [place] [address] Care Team Providers Care Quick Sketch Artist Name Role Phone Santosh Briones MD Primary Care Provider Julius Cho MD Unavailable Lew Ross MD Unavailable Karlos Pringle PA-C Unavailable Reason for Visit * Reason Onset Date Comments Advice Only 01/27/2025 Encounter Details Date Type Department Care Team (Late st Contact Info) Description 01/27/2025 Telephone [facility] Cardiology [address] [place] [address] Lesly Sanchez, TIRE FIXER [address] [place] [id number] Advice Only Social History Tobacco Use Types [...] speak a language other than Latvian at ho ut? No 08/17/2023 Do you want help with [...] Sex Assigned at Female 03/19/2022 10:49 AM DESKTOP SUPPORT CONSULTANT Legal Sex Female 5:46 PM CDT Gender Identity Female 03/19/2022 10:49 AM DESKTOP SUPPORT CONSULTANT Sexual Orientation Not on file documented [...] Description 04/06/2025 9:00 AM EST Office Visit [facility] Cardiology [address] [place] [address] [place] [address] [place] [address] [address] [place] [address] documented as of this encounter Visit Diagnoses Not on filedocumented in this encounter Care Teams Quick Sketch Artist Relationship Specialty Start Date End Date Santosh Briones MD [address] [place] [address] [place] [address] PCP - General General Internal Medicine 04/23/22 Julius Cho MD [address] [place] [address] Referring Physician Internal Medicine 04/23/22 Lew Ross MD [address] [facility] [address] [place] [address] Cardiology 08/13/23 Karlos Pringle PA-C [address] [place] [address] Cardiology 11/23/23 documented as of this encounter
--- OUTSIDE RECORDS SUMMARY | 2025-03-16 11:02 | XMS_ITS | Clinical Summary ---
Author Organization [facility] Address [address] [place] [address] Care Team Providers Care Tax Representative Name Role Phone Abby Phillip CRISTOFER Primary Care Provider [phone] Allergies Active Allergy Reactions Criticality Noted Date [...] - 01/16/2025 11:59 PM EDT [facility] [address], [address] [place] [id number] Bilateral hip pain Discharge Disposition: Home or Self Care 01/16/2025 9:30 AM EDT Consult [facility] [address], [address] [place] [address] Graeme, May R, MICROSOFT DYNAMICS DEVELOPER History of DVT (deep vein thrombosis) (Primary [...] UKY-Zoster Vaccines (2 of 2) 03/20/2023 01/23/2023 [id number] Vaccine (5 - 2024- season) 2025 10/29/2021, [...] Routine 01/16/2025 10:15 AM EDT GARRY positive BAKER/JEWEL CUPPING MACHINE OPERATOR (DANICA) ANTIBODY, IGG (SO) Routine 01/16/2025 10:15 [...] Graeme [place] LAB URINE ORDERABLES Final Result [facility] [address] [place] [address] * Protein, Random, Urine with Creatinine (01/16/2025 10:16 AM EDT) Protein, Urine 6 mg/dL 01/16/2025 12:12 PM EDT [facility] Creatinine, Urine 34 mg/dL 01/16/2025 12:12 PM EDT [facility] Protein/Creatin ine Ratio 0.2 mg/mg Creat 01/16/2025 12:12 PM EDT [facility] Urine Urine specimen obtained by clean catch procedure / Unknown Non-blood Collection / Unknown 01/16/2025 10:16 AM EDT 01/16/2025 10:16 AM EDT may Graeme MICROSO[employer] DYNAM[employer] DEVELOPER LAB URINE ORDERABLES Final Result [facility] [address] [place] [address] * (ABNORMAL) Urinalysis with reflex microscopic (Culture NOT Included) (01/16/2025 10:16 AM EDT) Color, Urine Yellow LAB URINALYSIS - AUTOMATED METHOD 01/16/2025 11:59 AM EDT [facility] Clarity, Urine Clear LAB URINALYSIS - AUTOMATED METHOD 01/16/2025 11:59 AM EDT [facility] Spec [place], Urine 1.013 1.005 - 1.030 LAB URINALYSIS - AUTOMATED METHOD 01/16/2025 11:59 AM EDT [facility] pH, Urine 6.0 5.0 - 8.0 LAB URINALYSIS - AUTOMATED METHOD 01/16/2025 11:59 AM EDT [facility] Protein, Urine Negative Negative mg/dL LAB URINALYSIS - AUTOMATED METHOD 01/16/2025 11:59 AM EDT [facility] Glucose, Urine Negative Negative mg/dL LAB URINALYSIS - AUTOMATED METHOD 01/16/2025 11:59 AM EDT [facility] Ketones, Urine Negative Negative mg/dL LAB URINALYSIS - AUTOMATED METHOD 01/16/2025 11:59 AM EDT [facility] Blood, Urine Large(A) Negative LAB URINALYSIS - AUTOMATED METHOD 01/16/2025 11:59 AM EDT [facility] Bilirubin, Urine Negative Negative LAB URINALYSIS - AUTOMATED METHOD 01/16/2025 11:59 AM EDT [facility] Urobilinogen, Urine 0.2 0.2 to 1.0 mg/dL LAB URINALYSIS - AUTOMATED METHOD 01/16/2025 11:59 AM EDT [facility] Leukocytes, Urine Small(A) Negative LAB URINALYSIS - AUTOMATED METHOD 01/16/2025 11:59 AM EDT [facility] Nitrite, Urine Negative Negative LAB URINALYSIS - AUTOMATED METHOD 01/16/2025 11:59 AM EDT [facility] RBC, Urine 11 - 15(A) 0 to 3 /HPF LAB URINALYSIS - AUTOMATED METHOD 01/16/2025 11:59 AM EDT [facility] WBC, Urine 6 - 10(A) 0 to 5 /HPF LAB URINALYSIS - AUTOMATED METHOD 01/16/2025 11:59 AM EDT [facility] Squamous Epithelial Cells 11 - 20(A) 0 to 5 /HPF LAB URINALYSIS - AUTOMATED METHOD 01/16/2025 11:59 AM EDT [facility] Hyaline Casts 0 - 2 0 to 5 /LPF LAB URINALYSIS - AUTOMATED METHOD 01/16/2025 11:59 AM EDT [facility] Bacteria, Urine Negative Negative LAB URINALYSIS - AUTOMATED METHOD 01/16/2025 11:59 AM EDT [facility] Urine Urine specimen obtained by clean catch procedure / Unknown Non-blood Collection / Unknown 01/16/2025 10:16 AM EDT 01/16/2025 10:16 AM EDT us May R Graeme MICROSOFT DYNAMICS DEVELOPER LAB URINE ORDERABLES Final Result Performing Organization Address City/[facility]/ZIP Co de Phone Number [facility] [address] [place] [address] * RPR With Reflex to Titer (01/16/2025 10:15 AM EDT) Rapid Plasma Reagin Nonreactive Non Reactive 01/17/2025 12:43 AM EDT [facility] Blood Venous blood specimen / Unknown Venipuncture / Unknown 01/16/2025 10:15 AM EDT 01/16/2025 10:15 AM EDT May Graeme MICROSOFT DYNAMICS DEVELOPER LAB BLOOD ORDERABLES Final Result Performing Organization Address City/[facility]/ZIP Co de Phone Number [facility] [address] [place] [address] * DNA Isolation and Hold (HLA) (01/16/2025 10:15 AM EDT) Blood Venous blood specimen / Unknown Venipuncture / Unknown 01/16/2025 10:15 AM EDT 01/16/2025 10:15 AM EDT may R Graeme [facility] MOLECULAR DIAGNOSTICS O RDERABLES Final Result Performing Organization Address City/[facility]/ZIP Co de Phone Number [facility] [address] [place] [address], [place] * Anti-Beta 2 Glycoprotein, IgG and IgM (01/16/2025 10:15 AM EDT) Anti-Beta 2 Glycoprotein 1, IgG 2.2 <20.0 U/mL 01/16/2025 3:19 PM EDT [facility] Anti-Beta 2 Glycoprotein IgG Interpretation Negative Negative 01/16/2025 3:19 PM EDT [facility] Anti-Beta 2 Glycoprotein 1, IgM <1.5 <20.0 U/mL 01/16/2025 3:19 PM EDT [facility] Anti-Beta 2 Glycoprotein IgM Interpretation Negative Negative 01/16/2025 3:19 PM EDT [facility] Blood Venous blood specimen / Unknown Venipuncture / Unknown 01/16/2025 10:15 AM EDT 01/16/2025 10:15 AM EDT may R Graeme [facility] LAB BLOOD ORDERABLES Final Result Performing Organization Address City/[facility]/ZIP Co de Phone Number [facility] [address] [place] [address] * Beta-2 Glycoprotein 1 Antibody, IgA (01/16/2025 10:15 AM EDT) [id number] 1, IgA Antibody <10 <=20 KARON 01/18/2025 4:33 AM EDT [facility] ([facility]) Serum 01/16/2025 10:1 5 AM EDT 01/16/2025 10:15 AM EDT Narrative [facility] ([facility]) - 01/18/2025 4:33 AM EDT Performed By: [facility] [address] [place] [address] Water Resources Engineer: El Duarte MD, PhD CLIA Number: [id number] May R Graeme MICROSOFT DYNAMICS DEVELOPER LAB BLOOD ORDERABLES Final Result Performing Organization Address [facility]/[place] [address] * Baker (DANICA) Antibody, IgG (01/16/2025 10:15 AM EDT) Baker (DANICA) Antibody, IgG 2 0 - 40 AU/mL 01/19/2025 1:10 PM EDT [facility]) Serum 01/16/2025 10:1 5 AM EDT 01/16/2025 10:15 AM EDT Narrative [facility]) - 01/19/2025 1:10 PM EDT INTERPRETIVE INFORMATION: [...] associations with SLE clinical manifestations. Performed By: [facility] [address] [place] [address] Water Resources Engineer: El Duarte MD, PhD CLIA Number: [id number] May R Graeme MICROSOFT DYNAMICS DEVELOPER LAB REF LAB BLOOD AND FLUID ORD Final Result Performing Organization Address [facility]/ZIP Co de Phone Number [facility] ([facility]) [address] [place] [address] * ENAII (01/16/2025 10:15 AM EDT) SSA-52 (RO52) (DANICA) Antibody, IgG 1 0 - 40 AU/mL 01/19/2025 1:10 PM EDT [facility] ([facility]) SSA-60 (RO60) (DANICA) Antibody, IgG 0 0 - 40 AU/mL 01/19/2025 1:10 PM EDT [facility] ([facility]) SSB (LA) (DANICA) Antibody, IgG 0 0 - 40 AU/mL 01/19/2025 1:10 PM EDT [facility] ([facility]) Blood Venous blood specimen / Unknown Venipuncture / Unknown 01/16/2025 10:15 AM EDT 01/16/2025 10:15 AM EDT Narrative [facility] ([facility]) - 01/19/2025 1:10 PM EDT INTERPRETIVE INFORMATION: [...] (PSS) also have this antibody. Performed By: [facility] [address] [place] [address] Water Resources Engineer: El Duarte MD, PhD CLIA Number: [id number] May Graeme MICROSOFT DYNAMICS DEVELOPER LAB BLOOD ORDERABLES Final Result Performing Organization Address [facility] Co de Phone Number [facility] ([place]) [address] [place] [address] * ENAI (01/16/2025 10:15 AM EDT) Baker/JEWEL CUPPING MACHINE OPERATOR (DANICA) Ab, IgG 2 0 - 19 Units 01/18/2025 2:39 PM EDT [facility] ([place]) Blood Venous blood specimen / Unknown Venipuncture / Unknown 01/16/2025 10:15 AM EDT 01/16/2025 10:15 AM EDT Narrative [facility] ([place]) - 01/18/2025 2:39 PM EDT INTERPRETIVE INFORMATION: Baker/JEWEL CUPPING MACHINE OPERATOR (DANICA) Antibody, IgG 19 Units or Less ............. Negative 20 to 39 Units ............... Weak Positive 40 to 80 Units ............... Moderate Positive 81 Units or greater .......... Strong Positive Baker/JEWEL CUPPING MACHINE OPERATOR antibodies are frequently seen in patients with mixed connective tissue disease (MCTD) and are also associated with other systemic autoimmune rheumatic diseases (SARDs) such as systemic lupus erythematosus (SLE), systemic sclerosis, and myositis. Antibodies targeting the Baker/JEWEL CUPPING MACHINE OPERATOR antigenic complex also recognize Baker antigens, therefore, the Baker antibody response must be considered when interpreting these results. Performed By: [facility] [address] [place] [address] Water Resources Engineer: El Duarte MD, PhD CLIA Number: [id number] may MICROSOFT DYNAMICS DEVELOPER LAB BLOOD ORDERABLES Final Result Performing Organization Address [facility] Co de Phone Number [facility] ([place]) [address] [place] [address] * Anticardiolipin IgG and IgM (01/16/2025 10:15 AM EDT) IgG Anticardiolipin 2.00 <20.00 GPL Units/mL 01/16/2025 3:19 PM EDT [facility] Anticardiolipin IgG Interpretation Negative Negative 01/16/2025 3:19 PM EDT [facility] IgM Anticardiolipin <1.50 <20.00 MPL Units/mL 01/16/2025 3:19 PM EDT [facility] Anticardiolipin IgM Interpretation Negative Negative 01/16/2025 3:19 PM EDT [facility] Blood Venous blood specimen / Unknown Venipuncture / Unknown 01/16/2025 10:15 AM EDT 01/16/2025 10:15 AM EDT May [facility] LAB BLOOD ORDERABLES Final Result [facility] [address] [place] [address] * HLA B27 Typing (01/16/2025 10:15 AM EDT) Blood Venous blood specimen / Unknown Venipuncture / Unknown 01/16/2025 10:15 AM EDT 01/16/2025 10:15 AM EDT may Graeme [facility] LAB BLOOD ORDERABLES Final Result [facility] [address] [place] [address], [place] * Thyroid Peroxidase Antibody (01/16/2025 10:15 AM EDT) Thyroid Peroxidase Antibody <5 <=8 IU/mL 01/16/2025 1:57 PM EDT [facility] Blood Venous blood specimen / Unknown Venipuncture / Unknown 01/16/2025 10:15 AM EDT 01/16/2025 10:15 AM EDT May R Graeme MICROSOFT DYNAMICS DEVELOPER LAB BLOOD ORDERABLES Final Result [facility] [address] [place] [address] * Cyclic Citrul Peptide Antibody IgG (01/16/2025 10:15 AM EDT) Cyclic Citrul Peptide Antibody IgG <5.0 <=5.0 U/mL 01/16/2025 3:17 PM EDT [facility] Blood Venous blood specimen / Unknown Venipuncture / Unknown 01/16/2025 10:15 AM EDT 01/16/2025 10:15 AM EDT May R Graeme MICROSOFT DYNAMICS DEVELOPER LAB BLOOD ORDERABLES Final Result Performing Organization Address City/[facility]/ZIP Co de Phone Number [facility] [address] [place] [address] * Double-Stranded DNA (dsDNA) Antibody, IgG by IFA (01/16/2025 10:15 AM EDT) [facility] Double-Strande d DNA (dsDNA) Ab IgG IFA <1:10 <1:10 01/18/2025 11:57 PM EDT [facility] ([facility]) Blood Venous blood specimen / Unknown Venipuncture / Unknown 01/16/2025 10:15 AM EDT 01/16/2025 10:15 AM EDT Narrative [facility] ([place]) - 01/18/2025 11:57 PM EDT [...] recommendations for testing may be found at [email or web address]. Performed By: [facility] [address] [place] [address] Water Resources Engineer: El Duarte MD, PhD CLIA Number: [id number] May R [facility] LAB BLOOD ORDERABLES Final Result Performing Organization Address [facility]/ZIP Co de Phone Number [facility] [employer]) [address] [place] [address] * Cardiolipin antibody, IgA (01/16/2025 10:15 AM EDT) Pathologist [facility] Cardiolipin Antibody IgA <10 <=11 APL 01/19/2025 12:32 PM EDT [facility] ([place]) Blood Venous blood specimen / Unknown Venipuncture / Unknown 01/16/2025 10:15 AM EDT 01/16/2025 10:15 AM EDT Narrative [facility] [employer]) - 01/19/2025 12:32 PM EDT INTERPRETIVE INFORMATION: Cardiolipin Antibodies, IgA <=11 APL: Negative 12-19 APL: Indeterminate 20-80 APL: Low to Moderately Positive 81 APL or above: High Positive Performed By: [facility] [address] [place] [address] Water Resources Engineer: El Duarte MD, PhD CLIA Number: [id number] May [facility] LAB BLOOD ORDERABLES Final Result Performing Organization Address [facility] Co de Phone Number [facility] [employer]) [address] [place] [address] * (ABNORMAL) Lupus Anticoagulant Profile (01/16/2025 10:15 AM EDT) Pathologist [facility] Lupus Anticoagulant Result Lupus anticoagulant (LA) not detected by either LA-sensitive aPTT or dRVVT assays. If clinical suspicion for antiphospholipid syndrome is high, consider testing for antibodies against cardiolipin and [id number] n I. 01/17/2025 11:38 AM EDT [facility] aPTT Lupus Anticoagulant Sensitive 36.9 <=41.0 sec LAB COAGULATION METHOD 01/17/2025 11:38 AM EDT [facility] DRVVT Screen 52.4 sec LAB COAGULATION METHOD 01/17/2025 11:38 AM EDT [facility] DRVVT Screen Ratio 1.39(H) <1.20 LAB COAGULATION METHOD 01/17/2025 11:38 AM EDT [facility] DRVVT Confirmation 53.3 sec LAB COAGULATION METHOD 01/17/2025 11:38 AM EDT [facility] DRVVT Confirmation Ratio 1.53 LAB COAGULATION METHOD 01/17/2025 11:38 AM EDT [facility] DRVVT Screen Ratio/Confirmat ion Ratio 0.91 <1.20 LAB COAGULATION METHOD 01/17/2025 11:38 AM EDT [facility] Blood Venous blood specimen / Unknown Venipuncture / Unknown 01/16/2025 10:15 AM EDT 01/16/2025 10:15 AM EDT May R [facility] LAB BLOOD ORDERABLES Final Result Performing Organization Address [facility] Co de Phone Number [facility] [address] [place] [address] * DRVVT (01/16/2025 10:15 AM EDT) Blood Venous blood specimen / Unknown Venipuncture / Unknown 01/16/2025 10:15 AM EDT 01/16/2025 10:15 AM EDT May R Graeme MICROSOFT DYNAMICS DEVELOPER LAB BLOOD ORDERABLES Final Result Performing Organization Address City/[facility]/ZIP Co de Phone Number [facility] [address] [place] [address] * (ABNORMAL) CBC and Differential (01/16/2025 10:15 AM EDT) WBC Count 6.41 3.70 - 10.30 10*3/uL LAB HEMATOLOGY METHOD 01/16/2025 11:33 AM EDT [facility] RBC Count 3.88(L) 3.90 - 5.20 10*6/uL LAB HEMATOLOGY METHOD 01/16/2025 11:33 AM EDT [facility] HGB 10.0(L) 11.2 - 15.7 g/dL LAB HEMATOLOGY METHOD 01/16/2025 11:33 AM EDT [facility] HCT 33.6(L) 34.0 - 45.0 % LAB HEMATOLOGY METHOD 01/16/2025 11:33 AM EDT [facility] Platelet Count 277 155 - 369 10*3/uL LAB HEMATOLOGY METHOD 01/16/2025 11:33 AM EDT [facility] MCV 87 79 - 98 fL LAB HEMATOLOGY METHOD 01/16/2025 11:33 AM EDT [facility] MCH 25.8(L) 26.0 - 32.0 pg LAB HEMATOLOGY METHOD 01/16/2025 11:33 AM EDT [facility] MCHC 29.8(L) 30.7 - 35.5 g/dL LAB HEMATOLOGY METHOD 01/16/2025 11:33 AM EDT [facility] RDW 15.9(H) 11.5 - 14.5 % LAB HEMATOLOGY METHOD 01/16/2025 11:33 AM EDT [facility] MPV 9.6 8.8 - 12.5 fL LAB HEMATOLOGY METHOD 01/16/2025 11:33 AM EDT [facility] nRBC 0.0 <=0.0 per 100 WBCs LAB HEMATOLOGY METHOD 01/16/2025 11:33 AM EDT [facility] Differential Type Automated LAB HEMATOLOGY METHOD 01/16/2025 11:33 AM EDT [facility] Neutrophils % 61 % LAB HEMATOLOGY METHOD 01/16/2025 11:33 AM EDT [facility] Lymphocytes % 28 % LAB HEMATOLOGY METHOD 01/16/2025 11:33 AM EDT [facility] Monocytes % 8 % LAB HEMATOLOGY METHOD 01/16/2025 11:33 AM EDT [facility] Eosinophils % 1 % LAB HEMATOLOGY METHOD 01/16/2025 11:33 AM EDT [facility] Basophils % 1 % LAB HEMATOLOGY METHOD 01/16/2025 11:33 AM EDT [facility] Immature Granulocytes % 1 % LAB HEMATOLOGY METHOD 01/16/2025 11:33 AM EDT [facility] Neutrophils Absolute 3.95 1.60 - 6.10 10*3/uL LAB HEMATOLOGY METHOD 01/16/2025 11:33 AM EDT [facility] Lymphocytes Absolute 1.77 1.20 - 3.90 10*3/uL LAB HEMATOLOGY METHOD 01/16/2025 11:33 AM EDT [facility] Monocytes Absolute 0.50 0.30 - 0.90 10*3/uL LAB HEMATOLOGY METHOD 01/16/2025 11:33 AM EDT [facility] Eosinophils Absolute 0.09 0.00 - 0.50 10*3/uL LAB HEMATOLOGY METHOD 01/16/2025 11:33 AM EDT [facility] Basophils Absolute 0.04 0.00 - 0.10 10*3/uL LAB HEMATOLOGY METHOD 01/16/2025 11:33 AM EDT [facility] Immature Granulocytes Absolute 0.06 0.00 - 0.06 10*3/uL LAB HEMATOLOGY METHOD 01/16/2025 11:33 AM EDT [facility] Blood Venous blood specimen / Unknown Venipuncture / Unknown 01/16/2025 10:15 AM EDT 01/16/2025 10:15 AM EDT Narrative [facility] - 01/16/2025 11:33 AM EDT Therapeutic decision making should be based on absolute values, rather than percentages. us May R Graeme MICROSOFT DYNAMICS DEVELOPER LAB BLOOD ORDERABLES Final Result Performing Organization Address City/[facility]/ZIP Co de Phone Number [facility] [address] [place] [address] * Rheumatoid Factor, Plasma (01/16/2025 10:15 AM EDT) Rheumatoid Factor, Plasma <10 <14 IU/mL 01/16/2025 1:24 PM EDT [facility] Blood Venous blood specimen / Unknown Venipuncture / Unknown 01/16/2025 10:15 AM EDT 01/16/2025 10:15 AM EDT May Graeme MICROSOFT DYNAMICS DEVELOPER LAB BLOOD ORDERABLES Final Result Performing Organization Address City/[facility]/ZIP Co de Phone Number [facility] [address] [place] [address] * C3 Complement (01/16/2025 10:15 AM EDT) C3 Complement 144 84 - 166 mg/dL 01/16/2025 1:19 PM EDT [facility] Blood Venous blood specimen / Unknown Venipuncture / Unknown 01/16/2025 10:15 AM EDT 01/16/2025 10:15 AM EDT May R Graeme MICROSOFT DYNAM[employer] DEVELOPER LAB BLOOD ORDERABLES Final Result [facility] [address] [place] [address] * (ABNORMAL) C4 Complement (01/16/2025 10:15 AM EDT) C4 Complement 37(H) 13 - 36 mg/dL 01/16/2025 1:19 PM EDT [facility] Blood Venous blood specimen / Unknown Venipuncture / Unknown 01/16/2025 10:15 AM EDT 01/16/2025 10:15 AM EDT [facility] Final Result Performing Organization Address [facility] Co de Phone Number [address] [address] * Antinuclear Antibody (GARRY), HEp-2, IgG (01/16/2025 10:15 AM EDT) GARRY INTERPRETIVE COMMENT See Note 01/18/2025 8:40 AM EDT [facility] ([facility]) Anti Nuc Ab Screen <1:80 <1:80 01/18/2025 8:40 AM EDT [facility] ([facility]) Blood Venous blood specimen / Unknown Venipuncture / Unknown 01/16/2025 10:15 AM EDT 01/16/2025 10:15 AM EDT Narrative [facility]) - 01/18/2025 8:40 AM EDT Clinical Interpretation: [...] not necessarily rule out SARD. Performed By: [facility] [address] [place] [address] Water Resources Engineer: El Duarte MD, PhD CLIA Number: [id number] May Graeme [facility] LAB BLOOD ORDERABLES Final Result Performing Organization Address City/[facility]/ZIP Co de Phone Number [employer] ([place]) [address] [place] [address] * Thyroid Stimulating Hormone, Plasma (01/16/2025 10:15 AM EDT) Thyroid Stimulating Hormone, Plasma 0.48 0.40 - 4.20 uIU/mL 01/16/2025 1:24 PM EDT [facility] Blood Venous blood specimen / Unknown Venipuncture / Unknown 01/16/2025 10:15 AM EDT 01/16/2025 10:15 AM EDT May Graeme [facility] LAB BLOOD ORDERABLES Final Result [facility] [address] [place] [address] from Last 3 Months Insurance [facility] MEDIC[facility] Care Teams Tax Representative Relationship Specialty Start Date End Date Abby Phillip APRN [address] [place] [address] PCP - General 01/03/25
--- OUTSIDE RECORDS SUMMARY | 2025-03-16 11:02 | XMS_ITS | Encounter Summary ---
Author Organization [employer] ([place], [place], [place], [place], [place]) Address [address] [place] [address] Care Team Providers Care City Manager Name Role Phone Santosh Briones MD Primary Care Provider [phone] Santosh Briones MD Primary Care Provider [phone] Julius Cho MD Unavailable eLw Ross MD Unavailable Karlos Pringle PA-C Unavailable [phone] Encounter Details Date Type Department Care Team (Late st Contact Info) Description 12/19/2020 Transcribed Document [facility] [place] [facility] [place] [address] ProviderAle MD [address] [place] [address] Social History Tobacco Use Types Packs/Day Years Used Date Smoking Tobacco: Never Assessed Comments Unknown Sex and Gender Information Value Date Recorded Sex Assigned at Female 03/19/2022 10:49 AM FENCE SETTER Legal Sex Female 5:46 PM CDT Gender Identity Female 03/19/2022 10:49 AM FENCE SETTER Sexual Orientation Not on file documented as [...] activities are safe for you. ??? Take [id number]-[id number] and prescription medicines only as told by [...] provider. Document Revised: 04/23/2018 Document Reviewed: 12/04/2017 [employer] Patient Education ? 2019 [employer] documented in this encounter Plan of Treatment Upcoming Encounters Date Type Department Care Team (Late st Contact Info) Description 04/06/2025 9:00 AM EST Office Visit [facility] [address] [place] [address] [place] [address] [place] [address] [address] [place] [address] documented as of this encounter Visit Diagnoses Not on filedocumented in this encounter Care Teams City Manager Relationship Specialty Start Date End Date Santosh Briones MD [address] [facility] [place], [place] [id number] PCP - General General Internal Medicine 04/18/22 04/22/22 Santosh Briones MD [address] [facility] [address] [place], [place] [id number] PCP - General General Internal Medicine 04/23/22 Julius Cho MD [address] [place] [address] Referring Physician Internal Medicine 04/23/22 Lew Ross MD [address] [facility] [address] [place] [address] Cardiology 08/13/23 Karlos Pringle PA-C [address] [place] [address] Cardiology 11/23/23 documented as of this encounter
--- OUTSIDE RECORDS SUMMARY | 2025-03-16 11:02 | XMS_ITS | Encounter Summary ---
Author Organization Healthcare Address [address] [place] [address] Care Team Providers Care Sales And Service Change Leader Name Role Phone Abby Phillip APRN Primary Care Provider [phone] Encounter Details Date Type Department Care Team [...] documented as of this encounter Care Teams Sales And Service Change Leader Relationship Specialty Start Date End Date Abby Phillip APRN [address] [place] [address] PCP - General 01/03/25 documented as of this encounter
--- OUTSIDE RECORDS SUMMARY | 2025-03-16 11:02 | XMS_ITS | Encounter Summary ---
Author Organization [employer] ([place], [place], [place], [place], [place]) Address [address] [place] [address] Care Team Providers Care Adult Care Manager Name Role Phone Santosh Briones MD Primary Care Provider [phone] Santosh Briones MD Primary Care Provider [phone] Julius Cho MD Unavailable Lew Ross MD Unavailable Karlos Pringle PA-C Unavailable [phone] Encounter Details Date Type Department Care Team (Late st Contact Info) Description 12/19/2020 Transcribed Document [facility] [place] [address] ProviderAle MD [address] [place] [address] Social History Tobacco Use Types Packs/Day Years Used Date Smoking Tobacco: Never Assessed Comments Unknown Sex and Gender Information Value Date Recorded Sex Assigned at Female 03/19/2022 10:49 AM BRICKLAYER PAVING BRICK Legal Sex Female 5:46 PM CDT Gender Identity Female 03/19/2022 10:49 AM BRICKLAYER PAVING BRICK Sexual Orientation Not on file documented as of this encounter Miscellaneous Notes * Cerner Conversion Note - Historical ProviderMD - 12/19/2020 8:35 AM CDT [facility] Main OR IntraOp Summary Primary Physician: MEE TUCKER, DPM-POD Finalized Date/Time: 12/21/20 10:05:58 Pt. Name: JANIS FIGUEREDO BILLIE Trotter./Sex: 1965 Female Med Rec #: [id number] Physician: MEE TUCKER, DPM-POD Financial #: [id number] Pt. Type: O Room/Bed: /9 Admit/Disch: 12/19/20 06:32:00 - 12/19/20 12:11:00 Institution: [facility] IntraOp Case Attendance Entry 1 Entry 2 Entry 3 Case Attendee MEE TUCKER, MUMTAZ RORDÍGUEZ MD-YVETTE ROSEN APRN DPM-POD Role Performed Surgeon/Proceduralist, Anesthesiologist of E TAILER/Nurse Undercoater First Record Time In 12/19/20 07:55:00 12/19/20 [...] Rn Poe, Kali, RN Baker, Amanda S, Network Field Engineer Role Performed Home Care Associate, First Home Care Associate, Second Scrub, First Time In 12/19/20 07:55:00 [...] Case Attendee ROBERTO BELCHER RN Role Performed Home Care Associate, First Time In 12/19/20 09:45:00 Time Out 12/19/20 10:03:00 Procedure Achilles Tendon Repair(Right), Bone Spur Excision Other Attendee BREAK Superficial Wound Closed By: Last Modified By: Julienne Atkins Rn 12/19/20 10:28:51 [facility] IntraOp Case Attendance Audit 12/19/20 10:28:51 Lining Stuffer: [id number] Modifier: [id number] 1 <+> Time Out 1 <*> Procedure [...] Tendon Repair(Right), Bone Spur Excision 12/19/20 10:03:51 Lining Stuffer: [id number] Modifier: [id number] <+> Time Out 7 <*> Procedure Achilles Tendon Repair(Right), Bone Spur Excision 12/19/20 09:47:32 Lining Stuffer: [id number] Modifier: [id number] 1 <*> Procedure Achilles Tendon Repair(Right), Bone [...] Procedure <+> 7 Other Attendee 12/19/20 07:58:46 Lining Stuffer: [id number] Modifier: [id number] <+> 6 Procedure [facility] IntraOp Case Times Entry 1 Patient In Room Time 12/19/20 07:55:00 Out Room Time 12/19/20 10:23:00 Anesthesia Start Time 12/19/20 07:55:00 Stop Time 12/19/20 10:23:00 Surgery / Procedure Times Start Time 12/19/20 08:35:00 Stop Time 12/19/20 10:16:00 Last Modified By: Julienne Atkins Rn 12/19/20 10:28:41 [facility] IntraOp Case Times Audit 12/19/20 10:28:41 Lining Stuffer: [id number] Modifier: [id number] <+> 1 Out Room Time <+> 1 Stop Time <+> 1 Stop Time 12/19/20 08:37:30 Lining Stuffer: [id number] Modifier: [id number] <+> 1 Start Time [facility] IntraOp Cautery Entry 1 ESU Identification Cautery Type Monopolar ESU ID Number [id number] ID Type Hospital Number Cautery Settings Cut [...] By: Julienne Atkins Rn 12/19/20 07:59:56 [facility] IntraOp Communication Entry 1 Communication To Family/Significant other Communication By Domingo Conklin RN Date and Time 12/19/20 08:37:00 Last Modified By: Julienne Atkins Rn 12/19/20 08:37:40 [facility] IntraOp Counts Verification Entry 1 Procedure Achilles Tendon Repair(Right), Bone Spur Excision Count Info Count Type Sponge, Sharps Counts Verification Baseline/pre-procedure Sequence Count Results Not Applicable Counts Performed By Count Performed By Letitia Washington (Scrub) Network Field Engineer Count Performed By Domingo Conklin RN (RN) Last Modified By: Julienne Atkins Rn 12/19/20 08:00:18 [facility] IntraOp Counts Final Entry 1 Procedure Achilles Tendon Repair(Right), Bone Spur Excision Final Count Info Count Type Sponge, Sharps Counts Verification Skin Closure/end of Sequence procedure Count Results Correct, surgeon notified Counts Performed By Count Performed By Letitia Washington (Scrub) Network Field Engineer Count Performed By Julienne Atkins Rn (RN) Last Modified By: Julienne Atkins Rn 12/19/20 10:05:43 [facility] IntraOp Cultures and Spec Summary Entry 1 Cultrures and Specimens Specimen Ordered: Yes Test(s) Routine/Path-Lab Requested/Final Disposition Last Modified By: Julienne Atkins Rn 12/19/20 09:32:55 General Comments: A. RIGHT FOOT BONE [facility] IntraOp Delays Entry 1 Delay Reason Patient, other (document in comment) Duration 25 Minute(s) Comment PATIENT GETTING NERVE BLOCK Last Modified By: Julienne Atkins Rn 12/19/20 08:00:49 [facility] IntraOp Departure from OR Entry 1 Integumentary Assessment Integumentary WDL Assessment WDL Transfer/Handoff Transfer to PACU Phase I Handoff Method Bedside/Face to face, Phone call Post-op Transport Stretcher/Gurney Via Patient Transport YVETTE CEJA, Accompanied by Wilbert CLEVELAND Tracy R, Viri, Domingo Conklin RN Last Modified By: Julienne Atkins Rn 12/19/20 08:01:04 [facility] IntraOp Drains and Tubes Entry 1 Device Type [place] Size 1/4 Drain/Tube Activity Inserted Drain/Tube Suction [place] Drain/Tube Drainage Red Device Location RIGHT LOWER LEG Method of Drainage [place] Last Modified By: Julienne Atkins Rn 12/19/20 08:49:09 [facility] IntraOp Dressing and Packing Entry 1 Type Dressing Location RIGHT FOOT Wound Dressing Item 4x4's, Kerlix/Janie, Johnnie, Other Applied By MEE TUCKER, DPM-POD Other Comments SILVER DRESSING Last Modified By: Julienne Atkins Rn 12/19/20 10:05:02 [facility] IntraOp Dressing and Packing Audit 12/19/20 10:05:02 Lining Stuffer: [id number] Modifier: [id number] 1 <*> Wound Dressing Item 4x4's, Kerlix/Janie, Johnnie 1 <+> Applied By 1 <*> Other Comments ACTICOAT [facility] IntraOp Fire Risk Assessment Entry [...] By: Julienne Atkins Rn 12/19/20 08:01:48 [facility] IntraOp General Case Flight Controls Engineer 1 Case Information OR OR 02 [facility] Case Level 1 Room Verified Yes Wound Class I - Clean Specialty Podiatry Anesthesia Type General ASA Class 3 Diagnosis Preop Diagnosis RIGHT ACHILLES INJURY Postop Same As Preop No Postop Diagnosis SEE MD NOTES Last Modified By: Julienne Atkins Rn 12/19/20 08:02:15 [facility] IntraOp Implant Log Entry 1 Entry 2 Entry 3 Type Tissue Implant Implant (Synthetic) Implant (Synthetic) (Biologic) Implant Log Implant Type Hardware Hardware Tissue Implant Type Tissue Implant IMP STRAVIX [id number] ARTHREX ANCHOR KT IB PLUS BC W/CC FT Identification [id number] Description Implant Quantity 1 2 1 Implant Site RIGHT ANKLE RIGHT FOOT RIGHT FOOT Implant Identification Model Number Implant [id number] Identification Serial Number Implant [id number] Identification Lot Number Implant [employer] ARTHREX Arthrex Identification Gut Snatcher Name: Implant [id number] Identification Catalog Number Implant Size Implant Has an Yes Yes Yes Expiration Date Implant Expiration 04/13/23 08/01/22 07/01/22 Date Wasted Radioactive Material Time Implanted Tissue Implant Continue for Tissue Implant Documentation Tissue Identification Number Graft Prep Per Yes Gut Snatcher Instructions: Tissue Preparation N/A Method: Reconstitution Solution: Reconstitution Solution Lot Number Reconstitution Solution Expiration Date: Thawing Solution Thawing Solution Lot Number Thawing Solution Expiration Date Preparation Materials, Other Preparation Materials, Other Lot Number Preparation Materials, Other Expiration Date MEE Ash, Prepared/Processed DPM-POD By Gut Snatcher Yes Paperwork Completed Implant Type Comment Last Modified By: Julienne Atkins Rn Compton, Tracy R, Rn Compton, Tracy R, Rn 12/19/20 09:32:32 12/19/20 09:32:32 12/19/20 09:32:32 Entry 4 Type Implant (Synthetic) Implant Log Implant Type Tissue Implant Type Implant ARTHREX SUTURE TAPE REF Identification [id number] Description Implant Quantity 1 Implant Site OPSITE Implant Identification Model Number Implant Identification Serial Number Implant [id number] Identification Lot Number Implant Identification Gut Snatcher Name: Implant Identification Catalog Number Implant Size Implant Has an Yes Expiration Date Implant Expiration 08/31/25 Date Wasted Radioactive Material Time Implanted Tissue Implant Continue for Tissue Implant Documentation Tissue Identification Number Graft Prep Per Gut Snatcher Instructions: Tissue Preparation Method: Reconstitution Solution: Reconstitution Solution Lot Number Reconstitution Solution Expiration Date: Thawing Solution Thawing Solution Lot Number Thawing Solution Expiration Date Preparation Materials, Other Preparation Materials, Other Lot Number Preparation Materials, Other Expiration Date Tissue Prepared/Processed By Gut Snatcher Paperwork Completed Implant Type Comment Last Modified By: Julienne Atkins Rn 12/19/20 10:03:35 [facility] IntraOp Implant Log Audit 12/19/20 10:03:35 Lining Stuffer: [id number] Modifier: [id number] <+> 4 Implant Identification Description <+> 4 Implant Identification Lot Number <+> 4 Implant Expiration Date <+> 4 Implant Site <+> 4 Implant Quantity <+> 4 Implant Has an Expiration Date <+> 4 Type [facility] IntraOp Intraoperative Assessment Entry 1 [...] By: Julienne Atkins Rn 12/19/20 08:03:12 [facility] IntraOp Intraoperative Equipment Entry 1 Type Equipment Equipment Equipment Yumi Suction System ID Number [id number] Setting ON Intraop Monitoring Blood Pressure Non-Invasive BP Device Source Antiembolic Devices Scopes Photo/Video Documentation Last Modified By: Julienne Atkins Rn 12/19/20 08:03:54 [facility] IntraOp Medication Admin Entry 1 Medication/Irrigant LAILA IRR NACL 0.9PCT 2000ML [id number] Time Administered 12/19/20 08:35:00 Route of IRRIGATION Administration Dose Administered By MEE TUCKER, SHAHRAMM-POD Procedure Irrigation Last Modified By: Julienne Atkins Rn 12/19/20 09:04:22 [facility] IntraOp Medication Admin Audit 12/19/20 09:04:22 Lining Stuffer: [id number] Modifier: [id number] 1 <*> Medication/Irrigant LAILA IRR NACL 0.9PCT 2000ML [id number] 1 <+> Time Administered [facility] IntraOp Patient Positioning Entry 1 [...] By MEE TUCKER, SHAHRAMM-POD, YVETTE CEJA APRN, Juleinne Atkins, Viri, Domingo Conklin RN Position Verified Positioning Yes Verified by Anesthesia Positioning Yes Verified by Surgeon Last Modified By: Julienne Atkins Rn 12/19/20 08:05:17 [facility] IntraOp Sign In Entry 1 [...] By: Julienne Atkins Rn 12/19/20 08:05:29 [facility] IntraOp Sign Out Entry 1 [...] By: Julienne Atkins Rn 12/19/20 10:28:48 [facility] IntraOp Sign Out Audit 12/19/20 10:28:48 Lining Stuffer: [id number] Modifier: [id number] <+> 1 RN Sign Out Signature Date/Time [facility] IntraOp Skin Prep Entry 1 Procedure Achilles Tendon Repair(Right), Bone Spur Excision Prescribed Yes Pre-Surgical Prep Completed Prep Area RIGHT FOOT AND LOWER LEG TO KNEE Intraop Prep Integumentary WDL Assessment WDL Prep Agents Chloraprep Prep by Julienne Atkins Rn Hair Removal Methods No hair removal performed Last Modified By: Julienne Atkins Rn 12/19/20 08:08:22 [facility] IntraOp Surgical Procedures Entry 1 [...] R, Rn 12/19/20 10:28:50 12/19/20 10:28:50 [facility] IntraOp Surgical Procedures Audit 12/19/20 10:28:50 Lining Stuffer: [id number] Modifier: [id number] <+> 1 Stop <+> 2 Stop [facility] IntraOp Temp Regulation Devices Entry 1 Temp Regulation Temperature Forced Air Warming Regulation Device device, Warm blankets Temperature [id number] Regulation Device Serial/Unit Number Temperature Upper body Regulation Site Temperature Device on Setting Temperature YVETTE CEJA APRN Regulation Device Applied by Last Modified By: Julienne Atkins Rn 12/19/20 08:39:43 [facility] IntraOP Time Out Entry 1 [...] By: Julienne Atkins Rn 12/19/20 08:38:12 [facility] IntraOp Tourniquet Entry 1 Type Pneumatic Serial/Unit Number [id number] Setting 300 mmHg Pheumatic Yes Tourniquet Checked Per Protocol Placement Thigh, right upper Skin Protection - Yes Padded Under Cuff Applied By Julienne Atkins Rn Removed By MEE TUCKER DPM-POD Times Start Time 12/19/20 08:34:00 Stop Time 12/19/20 10:15:00 Total Time 101 calculated manually (Mins) Last Modified By: Julienne Atkins Rn 12/19/20 10:16:00 [facility] IntraOp Tourniquet Audit 12/19/20 10:16:00 Lining Stuffer: [id number] Modifier: [id number] <+> 1 Total Time calculated manually (Mins) [...] Description 04/06/2025 9:00 AM EST Office Visit [facility] Cardiology [address] [place] [address] [place] [address] [place] [address] [address] [place], [place] [id number] documented as of this encounter Visit Diagnoses Not on filedocumented in this encounter Care Teams Adult Care Manager Relationship Specialty Start Date End Date Santosh Briones MD [address] [place], [place] [id number] PCP - General General Internal Medicine 04/18/22 04/22/22 Santosh Briones MD [address] [place], [place] [id number] PCP - General General Internal Medicine 04/23/22 Julius Cho MD [address] [place] [address] Referring Physician Internal Medicine 04/23/22 Lew Ross MD [address] [place] [address] [address] [place], [place] [id number] Cardiology 08/13/23 Karlos Pringle PA-C [address] [facility] [address] [place] [address] Cardiology 11/23/23 documented as of this encounter
--- OUTSIDE RECORDS SUMMARY | 2025-03-16 11:02 | XMS_ITS | Encounter Summary ---
Author Organization [employer] ([place], [place], [place], [place], [place]) Address [address] [place] [address] Care Team Providers Care Highway Maintenance Supervisor Name Role Phone Santosh Briones MD Primary Care Provider [phone] Julius Cho MD Unavailable Lew Ross MD Unavailable Karlos Pringle PA-C Unavailable [phone] Reason for Visit * Reason Onset Date Comments Cardiac Clearance 02/16/2025 Encounter Details Date Type Department Care Team (Late st Contact Info) Description 02/16/2025 Telephone [facility] Cardiology [address] [place] [address] Lesly Sanchez, SCREEN OPERATOR [address] [place], [place] [id number] Cardiac Clearance Social History Tobacco Use Types [...] Do you speak a language other than Ukrainian at ho ne? No 08/17/2023 Do you want help with [...] Sex Assigned at Female 03/19/2022 10:49 AM CREW TEAM MEMBER Legal Sex Female 5:46 PM CDT Gender Identity Female 03/19/2022 10:49 AM CREW TEAM MEMBER Sexual Orientation Not on file documented as of this encounter Miscellaneous Notes * Telephone Encounter - Sharece Crescencio - 02/17/2025 4:06 PM EDT Last office visit note with cardiac clearance instructions has been faxed to Dr. Noyola office [phone] * Telephone Encounter - Arturo Prather - 02/17/2025 3:00 PM EDT Faxed received regarding cardiac clearance for upcoming colonoscopy scheduled for 03/01/25. Will put on provider desk for recommendation. * Telephone Encounter - Leny Washington - 02/16/2025 11:09 AM EDT Fax received from [facility] requesting a cardiac clearance for patient having colonoscopy scheduled for 03/01 be faxed to [phone] Fax forwarded to [facility] documented in this encounter Plan of Treatment Upcoming Encounters Date Type Department Care Team (Late st Contact Info) Description 04/06/2025 9:00 AM EST Office Visit [facility] Cardiology [address] [place] [id number] Lew Ross MD [address] [place] [address] [address] [place] [address] documented as of this encounter Visit Diagnoses Not on filedocumented in this encounter Care Teams Highway Maintenance Supervisor Relationship Specialty Start Date End Date Santosh Briones MD [address] [facility] [place] [address] PCP - General General Internal Medicine 04/23/22 Julius Cho MD [address] [place] [address] Referring Physician Internal Medicine 04/23/22 Lew Ross MD [address] [place] [address] [address] [place], [place] [address] Cardiology 08/13/23 Karlos Pringle PA-C [address] [place] [address] [address], [facility] [address] [place] [address] Cardiology 11/23/23 documented as of this encounter
--- OUTSIDE RECORDS SUMMARY | 2025-03-16 11:02 | XMS_ITS | Encounter Summary ---
Author Organization [employer] ([place], [place], [place], [place], [place]) Address [address] [place] [address] Care Team Providers Care Esol Teacher Name Role Phone Santosh Briones MD Primary Care Provider [phone] Santosh Briones MD Primary Care Provider Julius Cho MD Unavailable Lew Ross MD Unavailable Karlos Pringle PA-C Unavailable Encounter Details Date Type Department Care Team (Late st Contact Info) Description 12/19/2020 Transcribed Document [facility] [place] [facility] [place] [address] ProviderAle MD [address] [place] [address] Social History Tobacco Use Types Packs/Day Years Used Date Smoking Tobacco: Never Assessed Comments Unknown Sex and Gender Information Value Date Recorded Sex Assigned at Female 03/19/2022 10:49 AM ASSISTANT PORTFOLIO MANAGER Legal Sex Female 5:46 PM CDT Gender Identity Female 03/19/2022 10:49 AM ASSISTANT PORTFOLIO MANAGER Sexual Orientation Not on file documented as of this encounter Miscellaneous Notes * Cerner Conversion Note - Historical ProviderMD - 12/19/2020 7:30 AM CDT [facility] Main OR Preop Summary Primary Physician: MEE TUCKER, DPM-POD Finalized Date/Time: 12/19/20 07:52:13 Pt. Name: JANIS FIGUEREDO BILLIE DumontO.B./Sex: 1965 Female Med Rec #: [id number] Physician: MEE TUCKER, DPM-POD Financial #: [id number] Pt. Type: O Room/Bed: /9 Admit/Disch: 12/19/20 [...] SYSTEM PreOp Case Times Audit 12/19/20 07:52:11 Quill Winder: [id number] Modifier: [id number] <+> 1 Patient Out of Preop <+> 1 Patient Ready for Surgery Finalized By: Pérez Gil, Rn Document Signatures Signed By: Pérez Gil Rn 12/19/20 07:52 Electronically signed by [facility] Conversion Geology Associate Cerner at 08/22/2022 3:49 PM CDT documented in this encounter Plan of Treatment Upcoming Encounters Date Type Department Care Team (Late st Contact Info) Description 04/06/2025 9:00 AM EST Office Visit [facility] Cardiology [address] [place] [address] Lew Ross MD [address] [place] [address] [address] [place] [address] documented as of this encounter Visit Diagnoses Not on filedocumented in this encounter Care Teams Esol Teacher Relationship Specialty Start Date End Date Santosh Briones MD [address] [facility] [place] [address] PCP - General General Internal Medicine 04/18/22 04/22/22 Santosh Briones MD [address] [place] [address] PCP - General General Internal Medicine 04/23/22 Julius Cho MD [address] [place] [address] Referring Physician Internal Medicine 04/23/22 Lew Ross MD [address] [facility] [address] [place] [address] Cardiology 08/13/23 Karlos Pringle PA-C [address] [facility] [address] [place] [address] Cardiology 11/23/23 documented as of this encounter
--- OUTSIDE RECORDS SUMMARY | 2025-03-16 11:02 | XMS_ITS | Encounter Summary ---
Author Organization [employer] ([place], [place], [place], [place], [place]) Address [address] [place] [address] Care Team Providers Care Water Resources Business Segment Leader Name Role Phone Santosh Briones MD Primary Care Provider [phone] Santosh Briones MD Primary Care Provider [phone] Julius Cho MD Unavailable Lew Ross MD Unavailable Karlos Pringle PA-C Unavailable [phone] Encounter Details Date Type Department Care Team (Late st Contact Info) Description 12/19/2020 Transcribed Document [facility] [place] [facility] [place] [address] ProviderAle MD [address] [place] [address] Social History Tobacco Use Types Packs/Day Years Used Date Smoking Tobacco: Never Assessed Comments Unknown Sex and Gender Information Value Date Recorded Sex Assigned at Female 03/19/2022 10:49 AM INDUSTRIAL TRAINING SPECIALIST Legal Sex Female 5:46 PM CDT Gender Identity Female 03/19/2022 10:49 AM INDUSTRIAL TRAINING SPECIALIST Sexual Orientation Not on file documented [...] - 12/19/2020 7:49 EDT Electronically signed by [facility] Conversion Sales And Production Manager Cerner at 08/22/2022 3:50 PM CDT documented in this encounter Plan of Treatment Upcoming Encounters Date Type Department Care Team (Late st Contact Info) Description 04/06/2025 9:00 AM EST Office Visit [facility] Cardiology [address] [place] [address] Lew Ross MD [address] [place] [address] [address] [place] [address] documented as of this encounter Visit Diagnoses Not on filedocumented in this encounter Care Teams Water Resources Business Segment Leader Relationship Specialty Start Date End Date Santosh Briones MD [address] [facility] [place] [address] PCP - General General Internal Medicine 04/18/22 04/22/22 Santosh Briones MD [address] [place] [facility] [place] [address] PCP - General General Internal Medicine 04/23/22 Julius Cho MD [address] [address] Referring Physician Internal Medicine 04/23/22 Lew Ross MD [address] [facility] [address] [place] [address] Cardiology 08/13/23 Karlos Pringle PA-C [address] [place] [address] [place] [address] Cardiology 11/23/23 documented as of this encounter
--- OUTSIDE RECORDS SUMMARY | 2025-03-16 11:02 | XMS_ITS | Encounter Summary ---
Author Organization [employer] ([place], [place], [place], [place], [place]) Address [address] [place] [address] Care Team Providers Care Electronic Parts Designer Name Role Phone Santosh Briones MD Primary Care Provider [phone] Santosh Briones MD Primary Care Provider [phone] Julius Cho MD Unavailable Lew Ross MD Unavailable Karlos Pringle PA-C Unavailable Encounter Details Date Type Department Care Team (Late st Contact Info) Description 12/19/2020 Transcribed Document [facility] Family Medicine [facility] [place] [address] ProviderAle MD [address] [place] [address] Social History Tobacco Use Types Packs/Day Years Used Date Smoking Tobacco: Never Assessed Comments Unknown Sex and Gender Information Value Date Recorded Sex Assigned at Female 03/19/2022 10:49 AM KELP OR SEAGRASS GATHERER Legal Sex Female 5:46 PM CDT Gender Identity Female 03/19/2022 10:49 AM KELP OR SEAGRASS GATHERER Sexual Orientation Not on file documented as of this encounter Miscellaneous Notes * Cerner Conversion Note - Historical ProviderMD - 12/19/2020 8:35 AM CDT [facility] Main OR PostOp Summary Primary Physician: MEE TUCKER, DPM-POD Finalized Date/Time: 12/19/20 12:16:40 Pt. Name: JANIS FIGUEREDO BILLIE DumontO.B./Sex: 1965 Female Med Rec #: [id number] Physician: MEE TUCKER, DPM-POD Financial #: [id number] Pt. Type: O Room/Bed: /9 Admit/Disch: 12/19/20 06:32:00 - Institution: [facility] Main OR PostOp Case Times Entry 1 In PACU II 12/19/20 11:10:00 Ready for PACU II 12/19/20 12:11:00 Discharge Discharge from PACU 12/19/20 12:11:00 II Last Modified By: SIOMARA ALLEN RN 12/19/20 12:16:39 [facility] Main OR PostOp Case Times Audit 12/19/20 12:16:39 Border Measurer: [id number] Modifier: [id number] <+> 1 Ready for PACU II Discharge <+> 1 Discharge from PACU II Finalized By: SIOMARA ALLEN RN Document Signatures Signed By: SIOMARA ALLEN RN 12/19/20 12:16 Electronically signed by [facility] Conversion Engineer Conductor Cerner at 08/22/2022 3:51 PM CDT documented in this encounter Plan of Treatment Upcoming Encounters Date Type Department Care Team (Late st Contact Info) Description 04/06/2025 9:00 AM EST Office Visit [facility] Cardiology [address] [place] [address] Lew Ross MD [address] [place] [address] [address] [place] [address] documented as of this encounter Visit Diagnoses Not on filedocumented in this encounter Care Teams Electronic Parts Designer Relationship Specialty Start Date End Date Santosh Briones MD [address] [address] PCP - General General Internal Medicine 04/18/22 04/22/22 Santosh Briones MD [address] [place] [address] PCP - General General Internal Medicine 04/23/22 Julius Cho MD [address] [place] [address] Referring Physician Internal Medicine 04/23/22 Lew Ross MD [address] [facility] [address] [place] [address] Cardiology 08/13/23 Karlos Pringle PA-C [address] [place] [address] Cardiology 11/23/23 documented as of this encounter
--- OUTSIDE RECORDS SUMMARY | 2025-03-16 11:02 | XMS_ITS | Encounter Summary ---
Author Organization [employer] ([place], [place], [place], [place], [place]) Address [address] [place] [address] Care Team Providers Care Line Therapist Name Role Phone Santosh Briones MD Primary Care Provider [phone] Santosh Briones MD Primary Care Provider [phone] Julius Cho MD Unavailable Lew Ross MD Unavailable Karlos Pringle PA-C Unavailable [phone] Encounter Details Date Type Department Care Team (Late st Contact Info) Description 12/19/2020 Transcribed Document [facility] [facility] [place] [address] ProviderAle MD [address] [place] [address] Social History Tobacco Use Types Packs/Day Years Used Date Smoking Tobacco: Never Assessed Comments Unknown Sex and Gender Information Value Date Recorded Sex Assigned at Female 03/19/2022 10:49 AM FLIGHT CREW SCHEDULER Legal Sex Female 5:46 PM CDT Gender Identity Female 03/19/2022 10:49 AM FLIGHT CREW SCHEDULER Sexual Orientation Not on file documented as of this encounter Miscellaneous Notes * Cerner Conversion Note - Historical MD Alex - 12/19/2020 11:50 AM CDT [facility] [place] [address] JANIS FIGUEREDO :1965 Visit Time:12/19/2020 What to [...] Follow up Thursday as scheduled Where: [address] [place] [address] [address] [place] [address]- Medications What How Much When Instructions Next Dose acetaminophen-oxyCODONE (acetaminophen-oxyCODONE 325 mg-7.5 mg oral tablet) 1 Tablet(s) Oral Every 6 Hours as needed for for pain Pickup at [place] [address] apixaban (Eliquis 5 mg oral tablet) 1 Tablet(s) Oral Two Times A Day atorvastatin (atorvastatin 40 mg oral tablet) 1 Tablet(s) Oral Every Day cephalexin (Keflex 500 mg oral capsule) 1 Capsule(s) Oral Every 8 Hours Duration: 1 Day(s) Pickup at [place] [address] cyanocobalamin (Vitamin B12 1000 mcg oral tablet) [...] for as needed for nausea/vomiting Pickup at [place] [address] Pharmacy Information [place] [address]: [address] [place] [phone] Take your medications faithfully. Do NOT skip [...] activities are safe for you. ??? Take rhjv-xvb-ruofazc and prescription medicines only as told by [...] provider. Document Revised: 04/23/2018 Document Reviewed: 12/04/2017 [employer] Patient Education ?? 2020 [employer]. Emergency Awareness and Preventative Care STROKE is [...] Assistance with quitting is available by contacting 2-196-CWVCNOW. This is a free resource providing counseling, [...] was given the opportunity to ask questions. Patient/Hospitality Recruiter Name: Patient/Hospitality Recruiter Signature: Relationship to Patient: Clinician/Hospital Hospitality Recruiter Signature: Date: documented in this encounter Plan of Treatment Upcoming Encounters Date Type Department Care Team (Late st Contact Info) Description 04/06/2025 9:00 AM EST Office Visit [facility] Cardiology [address] [place] [phone] [place] [address] [place] [address] [id number] documented as of this encounter Visit Diagnoses Not on filedocumented in this encounter Care Teams Line Therapist Relationship Specialty Start Date End Date Santosh Briones MD [address] [place] [address] PCP - General General Internal Medicine 04/18/22 04/22/22 Santosh Briones MD [address] [facility] [place] [address] PCP - General General Internal Medicine 04/23/22 Julius Cho MD [address] [place] [address] Referring Physician Internal Medicine 04/23/22 Lew Ross MD [address] [place] [address] [id number] Cardiology 08/13/23 Karlos Pringle PA-C [address] [facility] [address] [place] [address] Cardiology 11/23/23 documented as of this encounter
--- OUTSIDE RECORDS SUMMARY | 2025-03-16 11:02 | XMS_ITS | Encounter Summary ---
Author Organization Healthcare Address [address] [place] [address] Care Team Providers Care Lens Silverer Name Role Phone Santosh Briones MD Primary Care Provider [phone] Abby Phillip APRN Primary Care Provider [phone] Encounter Details Date Type Department Care Team (Late st Contact Info) Description 09/09/2024 Orders Only External Location [address] [place] [address] Provider, External Social History Tobacco Use Types [...] on filedocumented in this encounter Care Teams Lens Silverer Relationship Specialty Start Date End Date Santosh Briones MD [address] [place] [address] PCP - General 12/31/21 01/02/25 Abby Phillip APRN [address] [place] [address] PCP - General 01/03/25 documented as of this encounter
--- OUTSIDE RECORDS SUMMARY | 2025-03-16 11:02 | XMS_ITS | Encounter Summary ---
Author Organization Healthcare Address [address] [place] [address] Care Team Providers Care Tour Operator Name Role Phone Santosh Briones MD Primary Care Provider [phone] Abby Phillip APRN Primary Care Provider [phone] Encounter Details Date Type Department Care Team (Late st Contact Info) Description 09/09/2024 Orders Only External Location [address] [place] [address] Provider, External Social History Tobacco Use Types [...] on filedocumented in this encounter Care Teams Tour Operator Relationship Specialty Start Date End Date Santosh Briones MD [address] [place] [address] PCP - General 12/31/21 01/02/25 Abby Phillip APRN [address] [place] [address] PCP - General 01/03/25 documented as of this encounter
--- OUTSIDE RECORDS SUMMARY | 2025-03-16 11:02 | XMS_ITS | Encounter Summary ---
Author Organization [employer] ([place], [place], [place], [place], [place]) Address [address] [place] [address] Care Team Providers Care Profile Grinder Technician Name Role Phone Santosh Briones MD Primary Care Provider [phone] Santosh Briones MD Primary Care Provider [phone] Julius Cho MD Unavailable Lew Ross MD Unavailable Karlos Pringle PA-C Unavailable [phone] Encounter Details Date Type Department Care Team (Late st Contact Info) Description 12/19/2020 Transcribed Document [facility] [address] [place] [address] ProviderlAe MD [address] [place] [address] Social History Tobacco Use Types Packs/Day Years Used Date Smoking Tobacco: Never Assessed Comments Unknown Sex and Gender Information Value Date Recorded Sex Assigned at Female 03/19/2022 10:49 AM STRADDLE TRUCK OPERATOR Legal Sex Female 5:46 PM CDT Gender Identity Female 03/19/2022 10:49 AM STRADDLE TRUCK OPERATOR Sexual Orientation Not on file documented as of this encounter Miscellaneous Notes * Cerner Conversion Note - Historical ProviderMD - 12/19/2020 3:48 PM CDT DATE OF PROCEDURE: 12/19/2020 1965 SURGEON: Massimo Blake DPM WIRE ANNEALER: None. PREOPERATIVE DIAGNOSES: Right Achilles tendon tear; [...] nylon 2-0, Vicryl 2-0, Arthrex anchors x4. Leland drain. Graft Info: We used a 2 [...] retracted as necessary. We then placed a Leland drain. We closed up the incision with [...] We will continue to follow this patient. /[id number] Keys YONG Weston/JALEEL / BMF / MODL /[id number] Electronically signed by Everardo, [facility] Conversion Log Sawyer Cerner at 08/22/2022 4:10 PM CDT documented in this encounter Plan of Treatment Upcoming Encounters Date Type Department Care Team (Late st Contact Info) Description 04/06/2025 9:00 AM EST Office Visit [facility] Cardiology [address] [place], [place] [address] Lew Ross MD [address] [place] [address] [address] [place], [place] [id number] documented as of this encounter Visit Diagnoses Not on filedocumented in this encounter Care Teams Profile Grinder Technician Relationship Specialty Start Date End Date Santosh Briones MD [address] [place], [place] [address] PCP - General General Internal Medicine 04/18/22 04/22/22 Santosh Briones MD [address] [place], [place] [address] PCP - General General Internal Medicine 04/23/22 Julius Cho MD [address] [address] Referring Physician Internal Medicine 04/23/22 Lew Ross MD [address] [place] [address] [address] [place], [place] [address] Cardiology 08/13/23 Karlos Pringle PA-C [address] [facility] [place] [address] Cardiology 11/23/23 documented as of this encounter
--- OUTSIDE RECORDS SUMMARY | 2025-03-16 11:03 | XMS_ITS | Encounter Summary ---
Author Organization [employer] ([place], [place], [place], [place], [place]) Address [address] [place] [address] Care Team Providers Care Shipping Team Leader Name Role Phone Santosh Briones MD Primary Care Provider [phone] Santosh Briones MD Primary Care Provider [phone] Julius Cho MD Unavailable Lew Ross MD Unavailable Karlos Pringle PA-C Unavailable [phone] Encounter Details Date Type Department Care Team (Late st Contact Info) Description 12/14/2020 Transcribed Document [facility] Family Medicine [address] [place] [address] ProviderAle MD [address] [place] [address] Social History Tobacco Use Types Packs/Day Years Used Date Smoking Tobacco: Never Assessed Comments Unknown Sex and Gender Information Value Date Recorded Sex Assigned at Female 03/19/2022 10:49 AM SUPERVISOR GROVE Legal Sex Female 5:46 PM CDT Gender Identity Female 03/19/2022 10:49 AM SUPERVISOR GROVE Sexual Orientation Not on file documented as [...] Source : Measured Height Entry Format : [place] Height, Feet : 5 ft(Converted to: 152 cm, 60 Inch) Height, Inches : 7 Inch(Converted to: 0 ft 7 Inch, 17.78 cm) Clinical Height : 170.18 cm Weight Source : Standing scale Weight Entry Format : [place] Clinical Dosing Weight : 116.82 kg Weight, Pounds : 257 lb Body Surface Area (BSA) : 2.25 m2 Body Mass Index : 40.3 kg/m2 (>HHI) [place] Body Weight : 61 kg PETROS HERNDON RN - 12/17/2020 10:31 EDT Health Histories Smoking Status : Never (less than 100 in lifetime; none in last 30 days) Smokeless Tobacco Status : Never Implant/Device Type, Construction Helper and Model : breast implants IVC filter [...] Tru Barkley Rn - 12/14/2020 10:55 EDT [place] Suicide Severity Rating Scale (C-SSRS) CSSRS Past [...] Info Legal Guardian : Spouse Support Person/Patient Case Worker : Yes Support Person/Pt Rep Name : Jose Ramon Lorenzana - Support Person/Pt Rep Contact Information : [phone] Want Family/Rep/Phys Notified of Admit : No Tru Barkley Rn - 12/14/2020 10:55 EDT Emergency Contact #1 : Jose Ramon Lorenzana Emergency Contact #1 Emergency Contact #1 Relationship : Pérez GilViri - 12/19/2020 6:14 EDT Emergency Contact #2 : ` Emergency Contact #2 Phone Number : ` Emergency Contact #2 Relationship : ` Information Obtained From : Patient Primary Language : Barbadian Communication Barrier : None General Lithographic Worker Needed : No Tru Barkley Rn - [...] Visit [facility] Cardiology [address] [place] [phone] [place] [address] [place] [address] [address] [place], [place] [address] documented as of this encounter Visit Diagnoses Not on filedocumented in this encounter Care Teams Shipping Team Leader Relationship Specialty Start Date End Date Santosh Briones MD [address] [place], [place] [address] PCP - General General Internal Medicine 04/18/22 04/22/22 Santosh Briones MD [address] [place], [place] [address] PCP - General General Internal Medicine 04/23/22 Julius Cho MD [address] [place] [address] Referring Physician Internal Medicine 04/23/22 Lew Ross MD [address] [facility] [address] [place], [place] [address] Cardiology 08/13/23 Karlos Pringle PA-C [address] [facility], [facility] [address] [place] [address] Cardiology 11/23/23 documented as of this encounter
--- OUTSIDE RECORDS SUMMARY | 2025-03-16 11:03 | XMS_ITS | CCD ---
Author Name Interface, [id number] lity Address [address] [facility] [place] [address] Organization [facility] Address [address] [place] [address] [address] [place] [address] Care Team Providers Care Marine Engineering Consultant Name Role Phone Misbah STEWART, Fuentes Unavailable Unavailable Allergies and Adverse Reactions Medication/Group Name Reaction Severity Date morphine 05/21/2022 Bactrim 05/21/2022 Reason for Visit FOLLOW UP Medications Date Name Route Dose Frequency Instructions Start Date End Date Status Fill Status Indication 05/22 Nirmatrel vir-Riton avir Dose Pack 300 mg (150 mg x 2)-100 mg active 05/21 Lisinopri l Oral active 05/22 Hydrocodo ne-Acetam inophen Oral [...] Active Deep vein thrombosis Active HTN Active FDC current use of anticoagulants Active Iron deficiency anemia (disorder) Active Hypotension Active Essential hypertension (disorder) Active Lymphedema (disorder) Active Social History Date Name Value 07/28/2019 Sex Female
--- OUTSIDE RECORDS SUMMARY | 2025-03-16 11:03 | XMS_ITS | Clinical Summary ---
Author Organization [facility] Address [address] [place] [address] Care Team Providers Care Public Health Teacher Name Role Phone Santosh Briones MD Primary Care Provider [phone] Social History Tobacco Use Types Packs/Day Years [...] 07/17/2032 023 Insurance MEDICARE A & B [facility] MEDICARE ADVANTAGE HMO NON PAR Care Teams Public Health Teacher Relationship Specialty Start Date End Date Santosh Briones MD PCP - General Internal Medicine 02/27/22
--- OUTSIDE RECORDS SUMMARY | 2025-03-16 11:03 | XMS_ITS | Patient Health Record ---
Author Organization [facility] Billing Info Address [address] [place] [address] Care Team Providers Care Vise Hand Name Role Phone NI SANTOS Primary Care [...] End Date [employer] OAP/182 223 [address] [place], [place] [id number] [id number] Janis Lorenzana Self - patient is the insured 01/01/202 2 Medical (General) History Medical History History ICD Code Hypertension I10 Hyperlipidemia E78.5 Chronic venous insufficiency I87.2 Atrial fibrillation GERD CAD, 70% proximal left circumflex, 90% m id OM, followed medically. Left lower extremity DVT, vena caval rex ter Obesity Asthma Surgical History Surgery Date(Month/Year) Gastric bypass X2 Hernia repair X2 Cholecystectomy Breast augmentation Vena caval filter placement Hospitalization History Reason Date(Month/Year) [facility] [place]
--- OUTSIDE RECORDS SUMMARY | 2025-03-16 11:03 | XMS_ITS | Referral Summary ---
Author Organization [employer] ([place], [place], [place], [place], [place]) Address [address] [place] [address] Care Team Providers Care Sweeper Cleaner Industrial Name Role Phone Santosh Briones MD Primary Care Provider [phone] Julius Cho MD Unavailable Lew Ross MD Unavailable Karlos Pringle PA-C Unavailable [phone] Encounters Date Type Department Care Team Description 02/16/2025 Telephone [facility] Cardiology [address] [place] [address] Lesly Sanchez, MEDICAL LABORATORY ASSISTANT Cardiac Clearance 01/27/2025 Telephone [facility] Cardiology [address] [place] [address] Lesly Sanchez, MEDICAL LABORATORY ASSISTANT Advice Only 01/10/2025 Telephone [facility] Cardiology [address] [place] [address] Lesly Sanchez, MEDICAL LABORATORY ASSISTANT Medication Management 01/10/2025 Telephone [facility] Cardiology [address] [place] [address] Lesly Sanchez, MEDICAL LABORATORY ASSISTANT Advice Only 01/03/2025 Telephone [facility] Cardiology [address] [place] [address] Lesly Sanchez APRN Medication Management 12/30/2024 Travel 12/30/2024 9:30 AM EDT Office Visit [facility] Cardiology [address] [place] [address] Lesly Sanchez APRN Coronary artery disease involving nooksack coronary artery of nooksack heart without angina pectoris (Primary Dx); Morbid [...] Do you speak a language other than Bhutanese at [facility]? No 08/17/2023 Do you want [...] Sex Assigned at Female 03/19/2022 10:49 AM PUBLIC RELATIONS SENIOR ASSOCIATE Legal Sex Female 5:46 PM CDT Gender Identity Female 03/19/2022 10:49 AM PUBLIC RELATIONS SENIOR ASSOCIATE Sexual Orientation Not on file Last Filed [...] EST Office Visit [facility] Cardiology [address] [place] [phone] [place] [address] [place] [address] [address] [place] [address] Medical Devices Implanted Type Area Aws Software Development Engineer Device Identifier Shelf Expiration Date Model / Serial / Lot Base Tib 18mm [id number] - [id number] Implanted:Qty : 1 on 04/23/2022 by Massimo Blake, SHAHRAMM at [facility] IMPLANTS Left: Ankle ARIAS MED GRP:ARIAS MED TECH 03/13/[id number] / / [id number] Stem Mid Tib 16mm [id number] - [id number] Implanted:Qty : 2 on 04/23/2022 by Massimo Blake, DPM at [facility] IMPLANTS Left: Ankle ARIAS MED GRP:ARIAS MED TECH 03/10/[id number] / / [id number] Stem Top Tib 16mm [id number] - [id number] Implanted:Qty : 1 on 04/23/2022 by Massimo Blake, SHAHRAMM at [facility] IMPLANTS Left: Ankle ARIAS MED GRP:ARIAS MED TECH 05/20/[id number] / / [id number] Cement Bone Smplx Tobra 40gm 6197-9-001 - [id number] Implanted:Qty : 3 on 04/23/2022 by Massimo Blake, DPM at [facility] IMPLANTS Left: Ankle GIUSEPPE:GIUSEPPE ORTHOPAEDICS 08/02/2023 6197-9-001 / / [id number] Tray Tib Sz4 L [id number] - [id number] Implanted:Qty : 1 on 04/23/2022 by Massimo Blake, DPM at [facility] IMPLANTS Left: Ankle ARIAS MED GRP:ARIAS MED TECH 02/20/[id number] / / [id number] Dome Inbone Talar Sulcus Sz 3 3 - [id number] Implanted:Qty : 1 on 04/23/2022 by Massimo Blake DPM at [facility] IMPLANTS Left: Ankle ARIAS MED GRP:ARIAS MED TECH 10/31/2028-3 / / [id number] Insrt Crosslnk Poly Sz3 [id number] - [id number] Implanted:Qty : 1 on 04/23/2022 by Massimo Blake, SHAHRAMM at [facility] IMPLANTS Left: Ankle ARIAS MED GRP:ARIAS MED TECH 02/17/2030 [id number] / / [id number] Stem Talar 10mm [id number] - [id number] Implanted:Qty : 1 on 04/23/2022 by Massimo Blake, SHAHRAMM at [facility] IMPLANTS Left: Ankle ARIAS MED GRP:ARIAS MED TECH 02/16/[id number] / / [id number] Bone Putty Stimulan 5cc 620-005 - [id number] Implanted:Qty : 1 on 08/18/2023 by Massimo Blake, SHAHRAMM at [facility] IMPLANTS Left: Ankle BIOCOMPOSITES 03/03/2026 [id number] / / [id number] Insurance [facility] MEDICARE ADVANTAGE Advance Directives For more information, please contact: [phone] * Full Code (Latest Code Status on [...] 5:35 PM 08/18/2023 5:58 PM Care Teams Sweeper Cleaner Industrial Relationship Specialty Start Date End Date Santosh Briones MD [address] [facility] [address] [place], [place] [id number] PCP - General General Internal Medicine 04/23/22 Julius Cho MD [address] [place] [address] Referring Physician Internal Medicine 04/23/22 Lew Ross MD [address] [facility] [address] [place] [address] Cardiology 08/13/23 Karlos Pringle PA-C [address] [facility] [place] [address] Cardiology 11/23/23
--- OUTSIDE RECORDS SUMMARY | 2025-03-16 11:03 | XMS_ITS | Data Portability ---
Author Organization [facility] ROBI Jane RICHARDS CLOSED Address [address] [place] [address] Assessment No assessment recorded. Plan of Treatment [...] to start, pt is WBAT* 2022 023 [facility], [address], [address], [place], [address], 3 09:33:59 physical therapist referral - 1-2 visits per week for 4-6 weeks. Range of motion and strength, modalities, manual therapy, and development of home exercise program per therapist discretion. *Begin with ROM to start, pt is WBAT* 2022 023 On license of [facility], [address], [address], [place], [address], 3 22:51:41 home health referral - 1-2 visits of home health PT per week for 6-8 weeks. Range of motion up to 30-45 degrees for the next two weeks, toe touch weighbearin g to start, progressing to partial WB over the course of the next two weeks. Strength, modalities, manual therapy, and development of home exercise program per therapist discretion. 2022 023 [email or web address] [facility], [address], [address], [place], [address], 3 11:57:29 Procedures None recorded. Surgeries None [...] knee, 1 or [address] [facility] [address] [place] [address] Sadi martin Name: JANIS FIGUEREDO Davidashahzad veronica [...] aguilera MD on 023 2:12 PM [email or web address] [facility] [place] [address], [place], [address], 09/11/2022 09:34:11 08/27/19 23 08/26/2022 XR, knee, 1 or 2 view [facility] [address] [place] [address] Sadi martin Name: JANIS martin : 961 Sadi martin 55 Orderi ng Provid er: PAULIE IRA EXAM DATE: 2022 EXAM: XR LT KNEE [...] aguilera MD on 023 10:10 AM [email or web address] [facility] [place] [address] , [place], [address], 09/10/2022 16:48:12 05/09/20 23 09/09/2022 XR, knee, 1 or 2 view [facility] [address] [place] [address] Sadi martin Name: JANIS martin : 961 Sadi martin 55 Orderi ng Provid er: [facility] EXAM DATE: 2022 EXAM: XR [...] MD on 09/10/19 23 9:00 AM [email or web address] [facility] [place] [address] , [place], [address], 09/10/2022 16:32:20 10/01/19 23 09/30/2022 XR, knee, 1 or [address] [facility] [address] [place] [address] Sadi martin Name: JANIS martin : 963 Sadi martin 55 Orderi ng Provid er: [facility] EXAM DATE: 2022 EXAM: XR [...] aguilera MD on 023 9:15 AM [email or web address] [facility] [address] , [place], [address], 11/26/2022 16:01:04 Result Notes Documentation Provider Name and Address Organization Details Recorded Time Xr, Knee, 1 Or 2 View : [place] [address] [place] [address] Patient Name: JANIS FIGUEREDO Patient : 1965 [...] By: Diego Brower MD IE GOODEN PA-C [address] [place] [address], [phone], [facility] 09/11/2022 09:34:11 Xr, Knee, 1 Or 2 View : [facility] [address] [place] [address] Patient Name: JANIS FIGUEREDO Patient : 1965 [...] Brower MD IE GOODEN PA-C [address] [place], [address], [facility] 09/10/2022 16:48:12 Xr, Knee, 1 Or 2 View : [facility] [address] [place] [address] Patient Name: JANIS FIGUEREDO Patient : 1965 [...] Brower MD IE GOODEN PA-C [address] [place], [address], [facility] 09/10/2022 16:32:20 Xr, Knee, 1 Or 2 View : [place] [address] [place] [address] Patient Name: JANIS FIGUEREDO Patient : 1965 [...] Diego Brower MD IE GOODEN PA-C [address] [facility] [place], [address], [facility] 11/26/2022 16:01:04 Procedures Surgical History Date Name Laterality Status Provider Name and Address Organization Details Recorded Time 04/23/20 prosthetic total arthroplasty of ankle completed Elena James [facility] 09/09/2022 09:02:08 Imaging Results None recorded. Procedure Notes None recorded. Medical Equipment None Reported. Allergies Allergen ID Allergen Name Allergen Category Reaction Reaction Severity Criticality Documentation Date Start Date Code Code System Note Provider Name and Address Organization Details Recorded Time 298407 Bactrim medicatio n Not available Not available Not available 08/12/2022 99568 9 RxNorm Jesu Jeter [facility] 3 14:02:58 082901 morphine medicatio n Not available Not available Not available 08/12/2022 7052 RxNorm Jesu Jetre [facility] 3 14:03:05 Medications Name Sig [...] 08/12/2022 170.18 cm 0 3 Jesu Jeter [facility] 08/12/2022 14:02:40 Date Recorded Body height Pain severity - 0-10 verbal numeric rating [Score] - Reported Provider Name and Address Organization Details Last Updated DateTime 08/26/2022 170.18 cm 1 Eyad Vitale [facility] 08/26/2022 09:58:04 Date Recorded Body height Body mass index (BMI) Body weight Pain severity - 0-10 verbal numeric rating [Score] - Reported Provider Name and Address Organization Details Last Updated DateTime 09/09/2022 170.18 cm 43.9 kg/m2 530185.86 g 2 Elena James [facility] 09/09/2022 09:00:15 Date Recorded Body height Body mass index (BMI) Body weight Pain severity - 0-10 verbal numeric rating [Score] - Reported Provider Name and Address Organization Details Last Updated DateTime 09/30/2022 170.18 cm 43.9 kg/m2 679661.86 g 0 Jesu Jeter [facility] 09/30/2022 09:13:11 Date Recorded Body height Body mass index (BMI) Body weight Pain severity - 0-10 verbal numeric rating [Score] - Reported Provider Name and Address Organization Details Last Updated DateTime 10/28/2022 170.18 cm 43.9 kg/m2 256052.86 g 0 Eyad Iam [facility] 10/28/2022 08:57:52 Social History Question Answer Notes LastModified by [employer] Details LastModified Time Tobacco Smoking Status Never Smoker Elena James [facility] 09/09/2022 09:00:55 What Is Your Level Of Caffeine Consumption? Moderate [email or web address] Information not available 09/09/2022 What Was The Date Of Your Most Recent Tobacco Screening? 09/09/2022 [email or web address] Information not available 09/09/2022 Has Tobacco Cessation Counseling Been Provided? No [email or web address] Information not available 09/09/2022 Sex: Unknown Functional Status Question Answer Note LastModified by [employer] Details LastModified Time Do you use any illicit or recreational drugs? No Information not available 09/09/2022 Do you or have you ever used any other forms of tobacco or nicotine? No [email or web address] Information not available 09/09/2022 What is your level of alcohol consumption? None [email or web address] Information not available 09/09/2022 Mental Status None recorded. Family History Nothing Reported. Medical History Condition Response Allergies/Hayfever N Other N Gout N Anxiety/Depression N Thyroid Disease N Heart Conditions N Kidney Stones N Hernia N Migraines N COPD N Glaucoma N Pneumonia N Skin Problems N Immune System Disorder N Anesthesia Complications N Heart Attack (AK) N Mental Illness N Neurological Problems N [...] mL dose 05/23/2020 completed Elena James null, [facility] 09/09/2022 09:00:22 COVID-19, mRNA, LNP-S, PF, 30 mcg/0.3 mL dose 10/29/2021 [facility] 09:00:22 COVID-19, mRNA, LNP-S, PF, 30 mcg/0.3 mL dose 02/01/2021 completed Elena James null, [facility] 09/09/2022 09:00:22 COVID-19, mRNA, LNP-S, PF, 30 mcg/0.3 mL dose 05/03/2020 completed Elena avendaño, [facility] 09/09/2022 09:00:22 Tdap 07/17/2022 completed Elena James [facility] 09/09/2022 09:00:22 Past Encounters Encounter ID Performer Location Encounter Start Date Encounter Closed Date Diagnosis/Indication Diagnosis SNOMED-CT Code Diagnosis ICD10 Code Diagnosis IMO Codes Diagnosis Note [id number] PAULIE GOODEN PA-C [facility] [place] [facility] [address] [address] 08/12/2022 13:21:20 08/12/2022 14:55:58 Closed fracture of lateral condyle of left femur [id number] S72.422A Assessment : Closed lateral femoral condyle fracture with mild displaceme nt. Plan: Dr. Nuñez consulted on the case today. Knee immobilize r for ambulation , put an order in for home health physical therapy. States she will use a walker most likely for ambulation . Follow-up in 2 weeks for repeat x-rays on arrival and recheck. [id number] PAULIE GOODEN PA-C [facility] [address] [place] [address] 08/26/2022 09:17:49 08/26/2022 10:13:28 Closed fracture of lateral condyle of left femur [id number] S72.422D Assessment : Follow-up of mildly displaced lateral femoral condyle fracture Plan: Continue with knee immobilize r for ambulation begin gentle range of motion with therapy. Follow-up in 2 weeks for repeat x-rays on arrival and recheck. [id number] PAULIE GOODEN PA-C [facility] [address] [place] [address] 09/09/2022 08:45:36 09/09/2022 09:23:43 Closed fracture of lateral condyle of left femur [id number] S72.422D Assessment : Status nearly 8 weeks [...] recheck, no x-rays needed at that visit. [id number] PAULIE GOODEN PA-C [facility] [address] [place] [address] 09/30/2022 08:53:14 09/30/2022 09:32:35 Closed fracture of lateral condyle of left femur [id number] S72.422D Assessment : Follow-up of lateral femoral condyle fracture Plan: She is doing great from a knee perspectiv e but still using the crutches a bit from the ankle surgery that she had. Follow-up in 4 weeks for recheck of the left knee. No x-rays needed at that time. [id number] PAULIE GOODEN PA-C [facility] [address] [place] [address] 10/28/2022 08:51:03 10/28/2022 09:08:47 Closed fracture of lateral condyle of left femur [id number] S72.422D Assessment : Follow-up of lateral femoral [...] Mcduffie Member ID Guarantor Name 08/26/2023 1 [employer] [id number] Jose Ramon Figueredo [id number] Janis Ontiverose 08/24/2023 GENERIC INSURANCE - MOVED-HOLD Janis Ontiverose 09/15/2024 PAYMENT PLAN Janis Figueredo 08/28/2023 1 [place] [id number] Janis Figueredo [id number] Janis Figueredo Notes Date Note Type Note Provider Name and Address Organization Details Recorded Time 08/12/2022 text/html WHAT: Left Knee.WHEN: [id number]: tripped and fellSYMPTOMS: pain, swelling, bruisingPain is [...] pain is well-controlled at this time PAIN: 3 /10X-RAY: LCMRI:PT:INJECTION : PAULIE GOODEN PA-C [address] [place], [address], [facility] 08/26/2022 16:24:18 08/26/2022 text/html Patient comes [...] at this time. PAULIE GOODEN PA-C [address] [place], [address], [facility] 09/11/2022 10:31:35 09/09/2022 text/html Patient comes in [...] this time. PAULIE GOODEN PA-C [address] [place], [address], [facility] 09/09/2022 09:31:11 09/30/2022 text/html Patient comes in [...] at this time. PAULIE GOODEN PA-C [address] [place], [address], [facility] 10/18/2022 16:55:34 10/28/2022 text/html Patient comes in [...] in the morning. PAULIE GOODEN PA-C [address] [place], [address], [facility] 10/28/2022 10:39:06 OBGyn Episode No OBEpisode recorded.
--- OUTSIDE RECORDS SUMMARY | 2025-03-16 11:03 | XMS_ITS | Clinical Summary ---
Author Organization [employer] ([place], [place], [place], [place], [place]) Address [address] [place] [address] Care Team Providers Care Warehouse Director Name Role Phone Santosh Briones MD Primary Care Provider [phone] Julius Cho MD Unavailable Lew Ross MD Unavailable Karlos Pringle PA-C Unavailable [phone] Allergies Active Allergy Reactions Criticality Noted Date [...] Type Department Care Team Description 02/16/2025 Telephone [facility] [address] [place] [address] Lesly Sanchez APRN Cardiac Clearance 01/27/2025 Telephone [facility] [address] [place] [address] Lesly Sanchez APRN Advice Only 01/10/2025 Telephone [facility] [address] [place] [address] Lesly Sanchez, PARK GUIDE Medication Management 01/10/2025 Telephone [facility] [address] [place] [id number] Lesly Sanchez, PARK GUIDE Advice Only 01/03/2025 Telephone [facility] [address] [place] [address] Lesly Sanchez, PARK GUIDE Medication Management 12/30/2024 9:30 AM EDT Office Visit [facility] [address] [place] [address] Lesly Sanchez, PARK GUIDE Coronary artery disease involving standing rock coronary artery of standing rock heart without angina pectoris (Primary Dx); Morbid obesity (HCC); ADONIS (obstructive sleep apnea) by history; Stasis, venous; Primary hypertension; Mixed hyperlipidemia; Lymphedema; Pre-operative cardiovascular examination 12/30/2024 Travel from Last 3 Months Immunizations [...] speak a language other than Mongolian at [facility]? No 08/17/2023 Do you want [...] Sex Assigned at Female 03/19/2022 10:49 AM DIESEL ENGINE ENGINEER Legal Sex Female 5:46 PM CDT Gender Identity Female 03/19/2022 10:49 AM DIESEL ENGINE ENGINEER Sexual Orientation Not on file Last Filed [...] Description 04/06/2025 9:00 AM EST Office Visit [facility] [address] [place] [address] [place] [address] [place] [address] [address] [place] [address] Health Maintenance Due Date Last Done Comments [...] Completed 01/28/2024 Medical Devices Implanted Type Area Reel Assembler Device Identifier Shelf Expiration Date Model / Serial / Lot Base Tib 18mm [id number] - [id number] Implanted:Qty : 1 on 04/23/2022 by Massimo Blake, SHAHRAMM at [facility] IMPLANTS Left: Ankle ARIAS MED GRP:ARIAS MED TECH 03/13/[id number] / / [id number] Stem Mid Tib 16mm [id number] - [id number] Implanted:Qty : 2 on 04/23/2022 by Massimo Blake, SHAHRAMM at [facility] IMPLANTS Left: Ankle ARIAS MED GRP:ARIAS MED TECH 03/10/[id number] / / [id number] Stem Top Tib 16mm [id number] - [id number] Implanted:Qty : 1 on 04/23/2022 by Massimo Blake, SHAHRAMM at [facility] IMPLANTS Left: Ankle ARIAS MED GRP:ARIAS MED TECH 05/20/[id number] / / [id number] Cement Bone Smplx Tobra 40gm 6197-9-001 - [id number] Implanted:Qty : 3 on 04/23/2022 by Massimo Blake, DPM at [facility] IMPLANTS Left: Ankle GIUSEPPE:GIUSEPPE ORTHOPAEDICS 08/02/2023 6197-9-001 / / [id number] Tray Tib Sz4 L [id number] - [id number] Implanted:Qty : 1 on 04/23/2022 by Massimo Blake, DPM at [facility] IMPLANTS Left: Ankle ARIAS MED GRP:ARIAS MED TECH 02/20/[id number] / / [id number] Dome Inbone Talar Sulcus Sz 3 - [id number] Implanted:Qty : 1 on 04/23/2022 by Massimo Blake, DPM at [facility] IMPLANTS Left: Ankle ARIAS MED GRP:ARIAS MED TECH 10/31/2028 / / [id number] Insrt Crosslnk Poly Sz3 [id number] - [id number] Implanted:Qty : 1 on 04/23/2022 by Massimo Blake, DPM at [facility] IMPLANTS Left: Ankle ARIAS MED GRP:ARIAS MED TECH 02/17/[id number] / / [id number] Stem Talar 10mm [id number] - [id number] Implanted:Qty : 1 on 04/23/2022 by Massimo Blake DPM at [facility] IMPLANTS Left: Ankle ARIAS MED GRP:ARIAS MED TECH 02/16/2030 [id number] / / [id number] Bone Putty Stimulan [facility] 620-005 - [id number] Implanted:Qty : 1 on 08/18/2023 by Massimo Blake DPM at [facility] IMPLANTS Left: Ankle BIOCOMPOSITES 03/03/2026 620-005 / / [id number] Insurance [facility]IC[facility] ADVANTAGE Advance Directives For more information, please contact: [phone] * Full Code (Latest Code Status on [...] 5:35 PM 08/18/2023 5:58 PM Care Teams Warehouse Director Relationship Specialty Start Date End Date Santosh Briones MD [address] [place] [address] [place] [address] PCP - General General Internal Medicine 04/23/22 Julius Cho MD [address] [place] [address] Referring Physician Internal Medicine 04/23/22 Lew Ross MD [address] [facility] [address] [place] [address] Cardiology 08/13/23 Karlos Pringle PA-C [address] [place] [address] Cardiology 11/23/23
--- OUTSIDE RECORDS SUMMARY | 2025-03-16 11:03 | XMS_ITS | CCD ---
Author Name Interface, A2Mnmhlsh lity Address [address] [place] [address] Organization [facility] Address [address] [place] [address] [address] [place] [address] Care Team Providers Care Sawmill Worker Name Role Phone Misbah STEWART, Fuentes Unavailable [...] active 05/21 Cyanocoba leydi Oral active 05/22 Nitroglyc danni Sublingua l active 05/21 Pantopraz ole (Sodium) Oral Delayed Release active 05/22 Nystatin Oral active 05/21 Furosemid e Oral active 05/21 Apixaban Oral active 05/21 Meloxicam Oral active Problems Diagnosis Status Date of Diagnosis Resolution Date History of deep vein thrombosis (situation) Active Anemia Active Deep vein thrombosis Active HTN Active custodial current use of anticoagulants Active Iron deficiency anemia (disorder) Active Hypotension Active Essential hypertension (disorder) Active Lymphedema (disorder) Active Social History Date Name Value 07/28/2019 Sex Female
--- NOTE | 2025-03-16 11:30 | NM_ITS ---
APPROVED REPORT Exam: Nuclear Stress Test Indication: cp..soa..palpitations..fatigue Patient Location: Outpatient Stress Tech: Angelita Newman DESHAWN Tech:Mary Parson JUAN RT(R)(N) Ht: 5 ft 7 in Wt: 286 lbs Bra Size: 36d HR: 90 bpm BP: 140/79 mmHg BSA: 2.35 m2 TID: 0.74 BMI: 44.7 History: cp..soa..palpitations..fatigue Procedure: Patient received 0.4 mg of intravenous Lexiscan, resting heart rate 90 bpm, resting blood pressure 140/79 mmHg, with Lexiscan maximum heart rate achieved was 93 bpm which is 85 % of the maximum predicted heart rate and blood pressure was 138/82 mmHg. With Lexiscan, patient denied any complaint of chest pain. Cardiac Stress and Resting SPECT Images: Cardiac Stress and Resting SPECT images were obtained using technetium 99m Myoview 32.0 mCi stress and 10.98 mCi at rest. Resting and stress imaging in supine and prone positions demonstrate a large sized, moderate, partially reversible perfusion defect in the anterior and anterolateral LV cochran. Gated imaging demonstrates severe reduction in global LV systolic function. LVEF is calculated at 9%. Conclusion: Large sized, moderate, partially reversible perfusion defect in the anterior and anterolateral LV cochran. Gated imaging demonstrates severe reduction in global LV systolic function. LVEF is calculated at 9%. Correlation with no recent TTE is suggested. Electronically signed by : Liliya Odonnell MD 03/20/2025 14:09:42
[2025-03-16 11:50] VITALS: BP 140/79; PULSE 82; RESP 16
[2025-03-16] MEDS: SODIUM CHLORIDE 0.9% 10ML SYR (RAD ONLY) 10 ML IV ×2 (11:57)
[2025-03-16] MEDS: ISOTOPE MYOVIEW (PER STUDY) 1 DOSE IV (11:57)
[2025-03-16] MEDS: DEFINITY US ECHO CONTRAST 2ML INJ 2 MG IV (13:10)
--- NOTE | 2025-03-16 13:45 | CA_ITS ---
APPROVED REPORT EXAM: Comprehensive 2D, Doppler, and color-flow Echocardiogram with contrast [place] Boatman: Toshia Gaona RVT Ht: 5 ft 7 in Wt: 299lbs BSA: 2.40 BP: 142/111 mmHg Indications: A-FIB,ABNORMAL EKG Echo Enhancing Agent Indication: Endocardial border delineation Agent(s) / Amount(s) Used: Definity 2 cc 2D Dimensions LA Volume 96.00 mL LA Volume Index 40.00 mL/m2 (M/F) 16-34 M-Mode Dimensions RVDd 2.35 cm (0.9-2.6) LA Diam 5.16 cm (1.9-4.0) LVDd 6.35 cm (3.5-5.7) LVDs 5.31 cm (3.5-5.7) IVSd 1.26 cm (0.6-1.1) PWd 0.43 cm (0.6-1.1) EF (Teich) 33.60% FS 16.40% EDV (Teich) 204.80 mL TAPSE 2.02 (<1.7) ESV (Teich) 135.90 mL LV Diastology E Decel Time 150 (160-240 msec) E/A Ratio 4.2 Aortic Valve MO Index 1.00 cm2/m2 AoV Peak Josh. 121.0 (50-130 cm/s) AI PHT 546.00 ms AO Peak GR. 5.90 mmHg AO Mean GR. 3.30 (<5 mmHg) AO VTI 27.1 (18-25 cm) MO (VTI) 2.45 (2.5-4.5 cm2) Mitral Valve MV E Max Josh. 97.0 (40-130 cm/s) MV A Velocity 23.0 (40-130 cm/s) E/A Ratio 4.22 MV PHT 44.0 ms Pulmonary Valve PV Peak Velocity 75.0 (50-150 cm/s) Tricuspid Valve TR P. Velocity 317.00 cm/s RAP Estimate 8.00 mmHg RVSP 48.20 mmHg Left Ventricle The left ventricle is normal size. Left ventricular systolic function is severely reduced. There is increased left ventricular wall thickness. There is severe global hypokinesis present. The left ventricular diastolic function is indeterminate. No left ventricle thrombus noted on this study. LVEF is 25% Right Ventricle Right ventricle is mildly dilated. The right ventricular systolic function is normal. Atria Left atrium is moderately dilated. Right atrium is mildly dilated. There is no color Doppler evidence of interatrial shunt. Aortic Valve The aortic valve is mildly thickened. There is no hemodynamically significant aortic valvular stenosis. Mild aortic regurgitation is present. Mitral Valve The mitral valve is normal in structure. No evidence of mitral valve stenosis. Mild mitral regurgitation is present. Tricuspid Valve The tricuspid valve leaflets are thin and pliable. Mild tricuspid regurgitation. RVSP is 25-30 mmHg. Pulmonic Valve The pulmonary valve is grossly normal in structure. Trace pulmonic valve regurgitation is present. Great Vessels The aortic root is normal in size. IVC is normal in size and collapses >50% with inspiration. Pericardium There is no pericardial effusion. Other Information Study Quality: Technically Difficult Conclusion Severe reduction in LV systolic function (LVEF 25%). Mild RV dilation. Biatrial dilation, Mild AI, mild MR, mild TR. Electronically signed by : Liliya Odonnell MD 03/17/2025 23:24:46
== END 2025-03-16 23:59 | disposition home or self-care (01) ==
LOC: RAD 10:32
PROVIDERS: PCP Nurse Practitioner Family; Visit Provider Physician Assistant
DX: I08.3 Combined rheumatic disorders of mitral, aortic and tricuspid valves (principal); I48.91 Unspecified atrial fibrillation; I25.10 Atherosclerotic heart disease of native coronary artery without angina pectoris; I89.0 Lymphedema, not elsewhere classified; R94.31 Abnormal electrocardiogram [ECG] [EKG]; R94.39 Abnormal result of other cardiovascular function study
CPT/HCPCS: 78452; 93306; A9502; J2785; Q9957

== ENCOUNTER 2025-03-21 10:48 | Observation (INO) | payer MEDICARE, SELFPAY ==
[2025-03-21] VITALS (7 sets, daily range): BP systolic 102–132; BP diastolic 67–80; PULSE 80–95; RESP 14–16; TEMP 36.4–36.8; O2SAT 97–99; BMI 44.6
--- NOTE | 2025-03-21 11:00 | PC.NURSE ---
arrived by w/c from front lobby admissions
--- NOTE | 2025-03-21 11:09 | XR_ITS ---
FINAL REPORT TECHNIQUE: Single view chest CLINICAL HISTORY: SOA COMPARISON: 01/10/2025 FINDINGS: A single view of the chest was obtained. The heart and mediastinum are within normal limits. The lungs are clear. There is no pneumothorax. IMPRESSION: No acute cardiopulmonary process. Reviewed, Interpreted and Dictated by Shaheed Rao MD Transcribed by Mary Jane Donis Authenticated and [facility]
--- NOTE | 2025-03-21 11:12 | HMH.PHAINT1 ---
Pharmacy Intervention Comments: MEDICATION RECONCILIATION COMPLETED ON PATIENT USING EXTERNAL FILL HISTORY FROM PHARMACY AND LIST FROM CARDIOLOGY/PCP OFFICES. -LESLEY GARCIAD
--- NOTE | 2025-03-21 11:19 | P.HP_ITS ---
<Statement entered by Chris Vallecillo MD - 03/27/25 11:09> Agree with plan of care as outlined by the NURSE OFFICE. History of Present Illness *Admission Date: 03/21/25 *Reason for visit:: chest pain *History of present illness: Ms. Ontiveros is a 60-year-old female who was directly admitted from the cardiology office today due to unstable angina, intermittent shortness of breath, and reduced ejection fraction. Patient has a known primary medical history of CAD, hypertension, hyperlipidemia, osteoporosis, osteoarthritis, history of DVT with Nicol filter in place, lymphedema of lower extremities, sacroiliitis, atrial fibrillation, bariatric surgery, HFrEF, GERD, depression/anxiety. She presented to her cardiology office today to follow-up on a recent echocardiogram. At this time she voiced complaints of having intermittent chest pain/pressure at rest over the last few days. She continues to have edema in bilateral lower extremities. Patient had Myoview test showing large sized, moderate, partial reversible perfusion defect in the anterior and anterolateral LV cochran. LVEF was calculated at 9%. Patient then had TTE which showed severely reduced LV systolic function of 25%. Patient recently had a colonoscopy on 02/28/2025 at which time she went into atrial fibrillation (rate controlled) and cardiology was consulted and recommended patient be started on Eliquis and follow-up with their office. Due to reduced EF and stable angina patient was directly admitted to the hospital for continued care and plans for left heart cath today. [facility] Disclaimer: The information contained in this section may have been updated after the patient was seen, as this information can be updated by other users. Medical History (Updated 03/21/25 @ 12:02 by Ivelisse Montoya APRN) Afib Nicol filter in place Abnormal ECG SOB (shortness of breath) CAD (coronary artery disease) Hx of deep venous thrombosis Encounter for pre-operative examination Lumbar radiculopathy Heart attack Hyperlipidemia Nerve damage of left foot Osteoporosis Encounter for routine gynecological examination Post-menopausal bleeding Osteoarthritis Obesity Surgical History H/O breast augmentation S/P cholecystectomy H/O hernia repair H/O total ankle replacement H/O gastric bypass Family History Father Diabetes Coronary artery disease Brother Diabetes Family/Other Blood clot in vein Blood disease Social History Smoking Status: Never smoker second hand exposure: No (previously) alcohol intake: never substance use type: denies use current occupational status: disabled Travel in the last 8 weeks?: None Have you lived/traveled outside US in past 30 days?: No Contact w/someone who lives/traveled outside US past 30 days?: No Exposure to someone with infectious disease in past 14 days?: No Do you have a fever (greater than 100.4 F or 38 C)?: No Have you tested positive for COVID-19?: No Exposed to someone with COVID-19 in past 14 days?: No Do you have a sore throat?: No Do you have a cough?: No Do you have any weakness?: No Do you have any diarrhea?: No Are you experiencing any unusual bleeding?: No Do you have any muscle aches/pain?: No Do you have any abdominal pain?: No Are you experiencing loss of taste or smell?: No Other Medical History Have you received the Flu Vaccine for this season: Yes Have you received the Pneumonia Vaccine: Yes Review of Systems *Cardiovascular Cardiovascular: Reports chest pain at rest, Reports dyspnea and Denies palpitations *Respiratory Respiratory: Reports dyspnea Endocrine Endocrine: Denies palpitations Meds Home Medications and Allergies Home Medications ?Medication ?Instructions ?Recorded ?Confirmed ?Type aspirin 81 mg tablet 81 mg PO DAILY 10/12/2403/04 History cholecalciferol (vitamin D3) 125 125 mcg PO DAILY 10/0203/21/25 History mcg (5,000 unit) capsule folic acid 1 mg tablet 1 mg PO DAILY 10/12/2403/21 History minocycline 100 mg capsule 100 mg PO BID 10/12/2403/04 History polysaccharide iron complex 180 mg 180 mg PO DAILY #30 caps 12/16/24 03/21/25 Rx iron capsule (Pro Fe) duloxetine 30 mg capsule,delayed 30 mg PO DAILY #90 ca ps 01/10/25 03/21/25 Rx release pantoprazole 40 mg tablet,delayed 40 mg PO DAILY #90 t abs 01/10/25 03/21/25 Rx release gabapentin 300 mg capsule 300 mg PO TID #90 caps 01/3103/21/25 Rx metoprolol succinate 25 mg 25 mg PO DAILY #30 tabs 03/21/25 Rx tablet,extended release 24 hr tirzepatide 5 mg/0.5 mL 5 mg SQ WEEKLY 03/07/2503/04 History subcutaneous pen injector (Antonio) furosemide 40 mg tablet 40 mg PO BID #180 tabs 03/1003/21/25 Rx potassium chloride 10 mEq 10 meq PO DAILY #30 tabs 11/2503/21/25 Rx tablet,extended release (Klor-Con) lidocaine 5 % topical patch 1 patch topical DAILY #30 ea 03/15/25 03/21/25 Rx albuterol sulfate 90 mcg/actuation 2 puff inhalation Q 4HP PRN 03/21/25 03/21/25 History aerosol inhaler (Ventolin HFA) shortness of breath or wheezing apixaban 5 mg tablet (Eliquis) 5 mg PO BID 03/21/25 History baclofen 10 mg tablet 10 mg PO TID 03/21/25 History ibandronate 150 mg tablet 150 mg PO MONTHLY 03/21/25 1 05/21/24 History methocarbamol 750 mg tablet 750 mg PO TIDP PRN Muscle spasms 03/21/25 03/21/25 History rosuvastatin 20 mg tablet (Crestor) 20 mg PO DAILY #30 tabs 03/21/25 03/21/25 Rx sacubitril 24 mg-valsartan 26 mg 1 tab PO BID #60 tabs 03/21/25 03/21/25 Rx tablet (Entresto) New Prescriptions to Start Prescriptions: Allergies Allergy/AdvReac Type Severity Reaction Status Date / Time morphine Allergy Severe Chest Pain Verified 03/21/25 09:38 sulfamethoxazole (From Allergy Severe Nausea Verified 03/21/25 09:38 Bactrim) trimethoprim (From Bactrim) Allergy Severe Nausea Verified 03/21/25 09:38 atorvastatin AdvReac myalgia Verified 03/21/25 10:52 Exam Data for Last 24 hours Vital signs and Labs for Last 24 Hours: Temp Pulse Resp BP Pulse Ox O2 Del Method 97.7 F 95 H 16 132/80 97 Room Air 03/21/25 11:11 03/21/25 11:11 03/21/25 11:11 03/21/25 11:11 03/21/25 11:11 03/21/25 11:11 Constitutional Constitutional: no acute distress, morbidly obese and cooperative *Routine HEENT Exam Head: Present normocephalic Eye: Present EOMI and PERRL ENT: Present mucous membranes moist *Routine Neck Exam Neck: Present supple; Absent lymphadenopathy *Routine Respiratory Exam Respiratory: Present CTA bilaterally and normal respiratory effort; Absent wheezes or crackles *Routine Cardiovascular Exam Cardiovascular: Present irregular rhythm; Absent murmur *Routine Abdominal Exam Abdominal: Present soft and normoactive bowel sounds; Absent tenderness *Routine Rectal Exam Rectal:: deferred *Routine Genitalia Exam Genitalia:: deferred *Routine Extremities Exam Extremities: Present edema (Bilateral lower extremity 2+); Absent cyanosis or clubbing *Routine Skin Exam Skin: Present intact, dry and warm; Absent rash *Routine Neurological Exam Neurological: Present alert and oriented X3 Assessment and Plan *Assessment and plan (1) Unstable angina: Status: Acute Category: Medical Code(s): I20.0 - Unstable angina (2) HFrEF (heart failure with reduced ejection fraction): Status: Acute Category: Medical Code(s): I50.20 - Unspecified systolic (congestive) heart failure (3) LV dysfunction: Status: Acute Category: Medical Code(s): I51.9 - Heart disease, unspecified (4) Cardiomyopathy: Status: Acute Qualifiers: Cardiomyopathy type: other Qualified Code(s): I42.8 - Other cardiomyopathies Category: Medical Code(s): I42.9 - Cardiomyopathy, unspecified (5) [place] filter in place: Status: Acute Category: Medical Code(s): Z95.828 - Presence of other vascular implants and grafts (6) SOB (shortness of breath): Status: Acute Category: Medical Code(s): R06.02 - Shortness of breath (7) Atrial fibrillation with controlled ventricular rate: Status: Acute Category: Medical Code(s): I48.91 - Unspecified atrial fibrillation Plan Ms. Ontiveros is a 60-year-old female who was directly admitted from the cardiology office today due to unstable angina, intermittent shortness of breath, and reduced ejection fraction. Patient has a known primary medical history of CAD, hypertension, hyperlipidemia, osteoporosis, osteoarthritis, history of DVT with Nicol filter in place, lymphedema of lower extremities, sacroiliitis, atrial fibrillation, bariatric surgery, HFrEF, GERD, depression/anxiety. She presented to her cardiology office today to follow-up on a recent echocardiogram. At this time she voiced complaints of having intermittent chest pain/pressure at rest over the last few days. She continues to have edema in bilateral lower extremities. Patient had Myoview test showing large sized, moderate, partial reversible perfusion defect in the anterior and anterolateral LV cochran. LVEF was calculated at 9%. Patient then had TTE which showed severely reduced LV systolic function of 25%. Patient recently had a colonoscopy on 02/28/2025 at which time she went into atrial fibrillation (rate controlled) and cardiology was consulted and recommended patient be started on Eliquis and follow-up with their office. Due to reduced EF and unstable angina patient was directly admitted to the hospital for continued care and plans for left heart cath today. I agreed to admit the patient, plan of care as follows: #Unstable angina #HFrEF #LV dysfunction #Cardiomyopathy #A-fib ? Patient admitted to the medical surgical floor on continuous telemetry monitoring. Patient currently in rate controlled atrial fibrillation. Patient denies chest pain or shortness of breath currently. Bilateral lower extremity edema noted on exam. Echo performed on 03/16/2025 shows severe reduction in LV systolic function of 25%, biatrial dilation, RVSP 25?30. Patient will need LifeVest fitted prior to discharge. ? Patient's BNP elevated at 2950. Patient currently takes regimen of Lasix 40 mg twice daily, will give one-time dose of additional 40 mg Lasix IV now. Plans for [facility] tomorrow to evaluate perfusion defect and LV dysfunction. ? Will continue patient's home cardiac medications of Entresto twice daily, rosuvastatin 20 mg daily, metoprolol 25 mg daily, Lasix 40 mg twice daily, aspirin 81 mg daily, and Eliquis 5 mg twice daily. ? Cardiology consulted and following. Chest x-ray ordered, no acute findings noted on x-ray. Patient remains hemodynamically stable and on room air. ? Potassium slightly low at 3.4, replace per protocol. Kidney function within normal limits BUN 15, creatinine 0.80. TSH and A1c WNL #Morbid obesity: Patient BMI 44.6, complicates all aspects of care. Continue chronic medication of methocarbamol 750 mg 3 times daily as needed, gabapentin 300 mg 3 times daily, duloxetine 30 mg daily, baclofen 10 mg 3 times daily. Full code Cardiac diet, n.p.o. after midnight Ambulate as tolerated VTE?Will
[2025-03-21 11:32] LABS: Hematocrit 37.9 % (37.0-47.0); Hemoglobin 11.9 g/dL (12.2-16.2); Immature Granulocytes % 0.2 %; Mean Corpuscular HGB Conc 31.4 g/dL (31.8-35.4); Mean Corpuscular Hemoglobin 28.7 pg (27.0-31.2); Mean Corpuscular Volume 91.5 fl (81-99); Nucleated Red Blood Cells % 0 %; Platelet Count 273 K/mm3 (142-424); Red Blood Count 4.14 M/mm3 (4.20-5.40); Red Cell Distribution Width-SD 49.1 fL; White Blood Count 4.9 K/mm3 (4.8-10.8)
[2025-03-21 11:46] LABS: INR 1.03 (0.9-1.1); Prothrombin Time 11.4 seconds (10.1-12.5)
[2025-03-21 11:48] LABS: Alanine Aminotransferase 17 U/L (12-78); Albumin Level 3.7 g/dl (3.5-5.0); Albumin/Globulin Ratio 1.3 (1.1-1.8); Alkaline Phosphatase 107 U/L (38-126); Anion Gap 8.4 mEq/L (5-15); Aspartate Amino Transferase 24 U/L (14-36); Bilirubin,Total 0.6 mg/dl (0.2-1.3); Blood Urea Nitrogen 15 mg/dl (7-17); Calcium 8.6 mg/dl (8.4-10.2); Carbon Dioxide 32 mmol/L (22.0-30.0); Chloride 100 mmol/L (98-107); Creatinine,Serum 0.80 mg/dl (0.52-1.04); Estimated Glomerular Filt Rate 73 ml/min (>60); GFR (African American) 88 ML/MIN (>60); Globulin 2.8 g/dL (1.3-3.2); Glucose 91 mg/dl (74-100); Magnesium 2.2 mg/dl (1.6-2.3); Potassium 3.4 mmoL/L (3.5-5.1); Sodium 137 mmol/L (136-145); Total Protein,Serum 6.5 g/dl (6.3-8.2)
--- NOTE | 2025-03-21 11:52 | EXP.CARD.CON ---
History of Present Illness History of Present Illness Consult date: 03/21/25 Requesting physician: Chris Vallecillo Chief complaint: chest pain History of present illness: Janis Ontiveros is a 60-year-old white female with a past medical history of non obstructive coronary artery disease, hypertension, hyperlipidemia, obesity, recurrent DVTs on Eliquis, s/p nicol filter and new onset A-fib who presented to cardiology clinic to discuss test results. In February patient had a colonoscopy for recurrent bleeding and afterwards went into new onset A-fib which prompted cardiology evaluation with stress test and echocardiogram. Patient return to office today to discuss results. Echo revealed an ejection fraction of 25%. Stress test revealed a large size, moderate partial reversible ischemia in the anterior and anterolateral LV occhran. Patient reports she has had ongoing and progressive worsening chest pain and shortness of breath. Patient was offered admission for unstable angina and to proceed with left heart catheterization for which she is agreeable. Patient is also scheduled for an outpatient TANYA and cardioversion next week. Patient is in A-fib today but is rate controlled. [facility] Disclaimer: The information contained in this section may have been updated after the patient was seen, as this information can be updated by other users. Medical History (Updated 03/21/25 @ 12:02 by Ivelisse Montoya APRN) Afib Nicol filter in place Abnormal ECG SOB (shortness of breath) CAD (coronary artery disease) Hx of deep venous thrombosis Encounter for pre-operative examination Lumbar radiculopathy Heart attack Hyperlipidemia Nerve damage of left foot Osteoporosis Encounter for routine gynecological examination Post-menopausal bleeding Osteoarthritis Obesity Surgical History H/O breast augmentation S/P cholecystectomy H/O hernia repair H/O total ankle replacement H/O gastric bypass Family History Father Diabetes Coronary artery disease Brother Diabetes Family/Other Blood clot in vein Blood disease Social History Smoking Status: Never smoker second hand exposure: No (previously) alcohol intake: never substance use type: denies use current occupational status: disabled Travel in the last 8 weeks?: None Have you lived/traveled outside US in past 30 days?: No Contact w/someone who lives/traveled outside US past 30 days?: No Exposure to someone with infectious disease in past 14 days?: No Do you have a fever (greater than 100.4 F or 38 C)?: No Have you tested positive for COVID-19?: No Exposed to someone with COVID-19 in past 14 days?: No Do you have a sore throat?: No Do you have a cough?: No Do you have any weakness?: No Do you have any diarrhea?: No Are you experiencing any unusual bleeding?: No Do you have any muscle aches/pain?: No Do you have any abdominal pain?: No Are you experiencing loss of taste or smell?: No Review of Systems Review of Systems Review of systems:: pertinent systems reviewed and negative unless documented below *Cardiovascular Cardiovascular: Reports chest pain and Reports dyspnea *Respiratory Respiratory: Reports dyspnea Exam Data for Last 24 hours Vital signs and Labs for Last 24 Hours: Temp Pulse Resp BP Pulse Ox O2 Del Method 97.7 F 85 16 132/80 97 Room Air 03/21/25 11:30 03/21/25 11:30 03/21/25 11:30 03/21/25 11:30 03/21/25 11:30 03/21/25 11:30 Laboratory Results - last 24 hr 03/21/25 11:26: Sodium 137, Potassium 3.4 L, Chloride 100, Carbon Dioxide 32 H, Anion Gap 8.4, BUN 15, Creatinine 0.80, Estimated GFR 73, Est GFR ( Amer) 88, Glucose 91, Calcium 8.6, Magnesium 2.2, Total Bilirubin 0.6, AST 24, ALT 17, Alkaline Phosphatase 107, Total Protein 6.5, Albumin 3.7, Globulin 2.8, Albumin/Globulin Ratio 1.3 Constitutional Constitutional: no acute distress *Routine Respiratory Exam Respiratory: Present CTA bilaterally and symmetric chest movement *Routine Cardiovascular Exam Cardiovascular: Present Normal S1, Normal S2, irregular rhythm and irregularly irregular *Routine Abdominal Exam Abdominal: Present soft and normoactive bowel sounds; Absent tenderness *Routine Extremities Exam Extremities: Present edema, full ROM and normal capillary refill Comments: Chronic lymphedema noted *Routine Skin Exam Skin: Present intact, dry and warm Detailed Neck Exam: Thyroids Thyroid: Absent bruit Meds Home Medications and Allergies Home Medications ?Medication ?Instructions ?Recorded ?Confirmed ?Type aspirin 81 mg tablet 81 mg PO DAILY 10/12/24 03/21/25 History cholecalciferol (vitamin D3) 125 125 mcg PO DAILY 10/12/24 03/21/25 History mcg (5,000 unit) capsule folic acid 1 mg tablet 1 mg PO DAILY 10/12/24 03/21/25 History minocycline 100 mg capsule 100 mg PO BID 10/12/24 03/21/25 History polysaccharide iron complex 180 mg 180 mg PO DAILY #30 caps 12/16/24 03/21/25 Rx iron capsule (Pro Fe) duloxetine 30 mg capsule,delayed 30 mg PO DAILY #90 caps 01/10/25 03/21/25 Rx release pantoprazole 40 mg tablet,delayed 40 mg PO DAILY #90 tabs 01/10/25 03/21/25 Rx release gabapentin 300 mg capsule 300 mg PO TID #90 caps 01/31/25 03/21/25 Rx metoprolol succinate 25 mg 25 mg PO DAILY #30 tabs 03/01/25 03/21/25 Rx tablet,extended release 24 hr tirzepatide 5 mg/0.5 mL 5 mg SQ WEEKLY 03/07/25 03/21/25 History subcutaneous pen injector (Antonio) furosemide 40 mg tablet 40 mg PO BID #180 tabs 03/10/25 03/21/25 Rx potassium chloride 10 mEq 10 meq PO DAILY #30 tabs 03/10/25 03/21/25 Rx tablet,extended release (Klor-Con) lidocaine 5 % topical patch 1 patch topical DAILY #30 ea 03/15/25 03/21/25 Rx albuterol sulfate 90 mcg/actuation 2 puff inhalation Q4HP PRN 03/21/25 03/21/25 History aerosol inhaler (Ventolin HFA) shortness of breath or wheezing apixaban 5 mg tablet (Eliquis) 5 mg PO BID 03/21/25 03/21/25 History baclofen 10 mg tablet 10 mg PO TID 03/21/25 03/21/25 History ibandronate 150 mg tablet 150 mg PO MONTHLY 03/21/25 03/21/25 History methocarbamol 750 mg tablet 750 mg PO TIDP PRN Muscle spasms 03/21/25 03/21/25 History rosuvastatin 20 mg tablet (Crestor) 20 mg PO DAILY #30 tabs 03/21/25 03/21/25 Rx sacubitril 24 mg-valsartan 26 mg 1 tab PO BID #60 tabs 03/21/25 03/21/25 Rx tablet (Entresto) New Prescriptions to Start Prescriptions: Allergies Allergy/AdvReac Type Severity Reaction Status Date / Time morphine Allergy Severe Chest Pain Verified 03/21/25 09:38 sulfamethoxazole (From Allergy Severe Nausea Verified 03/21/25 09:38 Bactrim) trimethoprim (From Bactrim) Allergy Severe Nausea Verified 03/21/25 09:38 atorvastatin AdvReac myalgia Verified 03/21/25 10:52 Assessment and Plan *Assessment and plan (1) Unstable angina: Status: Acute Category: Medical Code(s): I20.0 - Unstable angina (2) HFrEF (heart failure with reduced ejection fraction): Status: Acute Category: Medical Code(s): I50.20 - Unspecified systolic (congestive) heart failure (3) CAD (coronary artery disease): Status: Acute Qualifiers: Coronary Disease-Associated Artery/Lesion type: [place] artery [place] vs. transplanted heart: [place] heart Associated angina: with unstable angina Qualified Code(s): I25.110 - Atherosclerotic heart disease of [place] coronary artery with unstable angina pectoris Category: Medical Code(s): I25.10 - Atherosclerotic heart disease of [place] coronary artery without angina pectoris (4) Afib: Status: Acute Category: Medical Code(s): I48.91 - Unspecified atrial fibrillation Plan History of nonobstructive coronary artery disease Unstable angina Abnormal stress test noted showing reversible defects Echo shows an EF of 25% Plan for left heart catheterization tomorrow. Discussed risk versus benefits with patient she is agreeable to proceed Continue aspirin and rosuvastatin. Patient is intolerant to atorvastatin. LifeVest ordered, will need placement prior to discharge New onset HFrEF-compensated Symptoms at baseline today. Reports she is always short of breath not worse than usual. Chronic lower extremity lymphedema note EF 25% Continue Entresto, metoprolol, and Lasix Add Aldactone No Jardiance or Farxiga due to urinary incontinence History of A-fib Currently A-fib rate controlled Scheduled for outpatient TANYA/ cardioversion next week Ken Solis CV summary 03/21/2025: Left heart catheterization tomorrow for unstable angina. Cardiac meds: Aspirin 81 mg p.o. daily Lasix 40 mg p.o. twice daily Metoprolol succinate 25 mg p.o. daily Entresto 24/26 mg p.o. twice daily Aldactone 25 mg p.o. daily No Farxiga or Jardiance due urinary incontinence
[2025-03-21 12:19] LABS: Thyroid Stimulating Hormone 0.81 uIU/mL (0.465-4.68)
[2025-03-21] MEDS: BACLOFEN 10MG TABLET 10 MG PO ×2 (12:51→20:25)
[2025-03-21] MEDS: GABAPENTIN 300MG CAPSULE 300 MG PO ×2 (12:51→20:25)
[2025-03-21] MEDS: SPIRONOLACTONE 25MG TABLET 25 MG PO (12:51)
[2025-03-21 13:02] LABS: NT Pro Brain Natriuretic Pep. 2950 pg/mL (0-125)
[2025-03-21] MEDS: FUROSEMIDE 40MG/4ML VIAL 40 MG IV (13:42)
[2025-03-21] MEDS: FUROSEMIDE 40 MG TABLET PO (15:29)
--- NOTE | 2025-03-21 16:20 | PC.NURSE ---
direct admit this shift from cardiology. pt is to have a heart cath tomorrow, so she will be NPO at midnight. no complaints of chest pain. tolerating RA w/ sats >90%. no needs at this time. lunchroom monitor in place. call light within reach.
[2025-03-21] MEDS: POTASSIUM CHLORIDE 20MEQ TAB 40 MEQ PO ×2 (17:14→20:25)
[2025-03-21] MEDS: SACUBITRIL/VALSARTAN 24-26MG TABLET 1 EACH PO (20:25)
[2025-03-21] MEDS: APIXABAN 5MG TABLET 5 MG PO (20:25)
[2025-03-21] MEDS: PANTOPRAZOLE 40MG TABLET 40 MG PO (20:25)
[2025-03-22] VITALS (18 sets, daily range): BP systolic 94–123; BP diastolic 60–81; PULSE 70–100; RESP 12–22; TEMP 36.4–36.9; O2SAT 92–99; BMI 44.4
--- NOTE | 2025-03-22 03:45 | PC.NURSE ---
Patient is alert and oriented x4. She was observed to be resting in bed with eyes closed, respirations even and unlabored on room air, and no apparent distress throughout the majority of the night. Patient has not had any complaints of chest pain, dizziness, lightheadedness, heart palpitations, etc. this shift. However, upon assessment, she did report having occasional episodes of shortness of breath, particularly during activity. Oxygen saturations have remained > 90%, no interventions have been required thus far. On continuous cardiac monitoring + outpatient Holter monitor. Physical assessment was performed appropriately (see nursing shift biophysical intervention) for this shift. Significant swelling with scattered discoloration was noted to her bilateral lower extremities; patient stated that sometimes, her legs get tender and feel heavy during ambulation. Scheduled medications were administered per JUL. Electrolyte replacement protocol as directed. She ambulates independently in her room/to the bathroom. Has remained NPO since midnight pending cardiology consult recommendations. At this time, the patient remains resting in bed without any new needs vocalized. No acute changes noted thus far. Call light within reach.
[2025-03-22 06:17] LABS: Hematocrit 37.9 % (37.0-47.0); Hemoglobin 12.0 g/dL (12.2-16.2); Immature Granulocytes % 0.4 %; Mean Corpuscular HGB Conc 31.7 g/dL (31.8-35.4); Mean Corpuscular Hemoglobin 29.0 pg (27.0-31.2); Mean Corpuscular Volume 91.5 fl (81-99); Nucleated Red Blood Cells % 0 %; Platelet Count 255 K/mm3 (142-424); Red Blood Count 4.14 M/mm3 (4.20-5.40); Red Cell Distribution Width-SD 49.1 fL; White Blood Count 5.3 K/mm3 (4.8-10.8)
[2025-03-22 06:29] LABS: Alanine Aminotransferase 15 U/L (12-78); Albumin Level 3.4 g/dl (3.5-5.0); Albumin/Globulin Ratio 1.4 (1.1-1.8); Alkaline Phosphatase 111 U/L (38-126); Anion Gap 4.7 mEq/L (5-15); Aspartate Amino Transferase 27 U/L (14-36); Bilirubin,Total 0.6 mg/dl (0.2-1.3); Blood Urea Nitrogen 14 mg/dl (7-17); Calcium 8.5 mg/dl (8.4-10.2); Carbon Dioxide 30 mmol/L (22.0-30.0); Chloride 104 mmol/L (98-107); Creatinine Clearance Estimated 55 mL/min (50-200); Creatinine,Serum 0.80 mg/dl (0.52-1.04); Estimated Glomerular Filt Rate 73 ml/min (>60); GFR (African American) 88 ML/MIN (>60); Globulin 2.4 g/dL (1.3-3.2); Glucose 85 mg/dl (74-100); Magnesium 2.3 mg/dl (1.6-2.3); Potassium 3.7 mmoL/L (3.5-5.1); Sodium 135 mmol/L (136-145); Total Protein,Serum 5.8 g/dl (6.3-8.2)
--- NOTE | 2025-03-22 07:16 | IR_ITS ---
APPROVED REPORT Patient Location: Inpatient PROCEDURES Left heart catheterization Left ventriculogram Selective coronary angiogram INDICATION Unstable angina, New onset cardiomyopathy ejection fraction 10%, Informed consent was obtained prior to the procedure. COMPLICATIONS NONE Estimated Blood Loss: LESS THAN 10 ML TECHNIQUE One percent lidocaine used to anesthetize the right anterior aspect of the wrist. The right radial artery was accessed via the Seldinger technique. A 6 [place] sheath was placed in the right radial artery. 2.5 mg of Verapamil, 800 mcg of nitroglycerin, 1mg Lidocaine and 5000 U Heparin were given through the arterial sheath. The JL3 catheter was also used to perform left heart catheterization, left ventriculogram and selective coronary angiogram. At the end of the procedure the sheath was removed good hemostasis was achieved using Traclet band, patient was transferred to the postop holding area in stable condition. ANGIOGRAPHIC RESULTS The left main artery Normal The left anterior descending artery Has mild 10% proximal luminal regularities with a mid vessel eccentric 20% plaque accompanied by slow flow throughout the entire LAD The circumflex artery Nondominant small with 10% proximal luminal irregularity The right coronary artery Large dominant with proximal 10% luminal regularities in distal 10 to 20% luminal regularities The BANEGAS ventriculogram reveals Severely dilated severely globally hypokinetic ejection fraction 10% The left ventricular end-diastolic pressure 30 to 35 mmHg IMPRESSION Mild nonocclusive coronary artery disease Severely dilated ventricle with severely hypokinetic ejection fraction Elevated LVEDP PLAN 1. GDMT for systolic heart failure 2. Diuresis 3. LifeVest 4. Risk factor modification 5. Consider cardiac MRI Electronically signed by : Kirk Babcock MD 03/22/2025 14:30:33
[2025-03-22] MEDS: GABAPENTIN 300MG CAPSULE 300 MG PO (08:16)
[2025-03-22] MEDS: ASPIRIN EC 81MG TABLET 81 MG PO (08:17)
[2025-03-22] MEDS: BACLOFEN 10MG TABLET 10 MG PO (08:17)
[2025-03-22] MEDS: SACUBITRIL/VALSARTAN 24-26MG TABLET 1 EACH PO (08:17)
[2025-03-22] MEDS: FUROSEMIDE 40 MG TABLET PO ×2 (08:17→15:43)
[2025-03-22] MEDS: METOPROLOL SUCCINATE XL 25MG TABLET 25 MG PO (08:18)
[2025-03-22] MEDS: SPIRONOLACTONE 25MG TABLET 25 MG PO (08:18)
[2025-03-22 08:19] LABS: Troponin I < 0.01 ng/ml (0.00-0.034)
--- NOTE | 2025-03-22 09:58 | P.PN_ITS ---
Subjective Subjective Date: 03/22/25 Time: 08:00 Principal diagnosis: Unstable angina Interval history: Patient awaiting left heart catheterization today. Denies any events throughout the evening. Morning labs reviewed and stable. Exam Data for Last 24 hours Vital signs and Labs for Last 24 Hours: Temp Pulse Resp BP Pulse Ox O2 Del Method 98.2 F 88 12 108/81 L 98 Room Air 03/22/25 08:00 03/22/25 08:00 03/22/25 08:00 03/22/25 08:00 03/22/25 08:00 03/22/25 08:39 Laboratory Results - last 24 hr 03/21/25 11:26: WBC 4.9, RBC 4.14 L, Hgb 11.9 L, Hct 37.9, MCV 91.5, MCH 28.7, MCHC 31.4 L, RDW 14.6, Plt Count 273, MPV 10.1, Neut % (Auto) 60.7, Lymph % (Auto) 29.9, [place] % (Auto) 7.4, Eos % (Auto) 1.4, Baso % (Auto) 0.4, Neut # (Auto) 3.0, Lymph # (Auto) 1.5, [place] # (Auto) 0.4, Eos # (Auto) 0.1, Baso # (Auto) 0.0, PT 11.4, INR 1.03, Sodium 137, Potassium 3.4 L, Chloride 100, Carbon Dioxide 32 H, Anion Gap 8.4, BUN 15, Creatinine 0.80, Estimated GFR 73, Est GFR ( Amer) 88, Glucose 91, Calcium 8.6, Magnesium 2.2, Total Bilirubin 0.6, AST 24, ALT 17, Alkaline Phosphatase 107, NT-Pro-B Natriuret Pep 2950 H, Total Protein 6.5, Albumin 3.7, Globulin 2.8, Albumin/Globulin Ratio 1.3, TSH 0.81 03/22/25 05:35: WBC 5.3, RBC 4.14 L, Hgb 12.0 L, Hct 37.9, MCV 91.5, MCH 29.0, MCHC 31.7 L, RDW 14.7, Plt Count 255, MPV 10.2, Neut % (Auto) 52.6, Lymph % (Auto) 35.6, [place] % (Auto) 9.1, Eos % (Auto) 1.9, Baso % (Auto) 0.4, Neut # (Auto) 2.8, Lymph # (Auto) 1.9, [place] # (Auto) 0.5, Eos # (Auto) 0.1, Baso # (Auto) 0.0, Sodium 135 L, Potassium 3.7, Chloride 104, Carbon Dioxide 30, Anion Gap 4.7 L, BUN 14, Creatinine 0.80, Estimated Creat Clear 55, Estimated GFR 73, Est GFR ( Amer) 88, Glucose 85, Calcium 8.5, Magnesium 2.3, Total Bilirubin 0.6, AST 27, ALT 15, Alkaline Phosphatase 111, Troponin I < 0.01, Total Protein 5.8 L, Albumin 3.4 L, Globulin 2.4, Albumin/Globulin Ratio 1.4 I & O for Last 24 hours: Intake & Output 03/19/25 03/20/25 03/21/25 03/22/25 23:59 23:59 23:59 23:59 Intake Total 480 / 730 250 / 250 Output Total 0 / 0 0 / 0 Balance 480 / 730 250 / 250 Weight 285 lb 283 lb 6.4 oz Constitutional Constitutional: no acute distress *Routine Respiratory Exam Respiratory: Present CTA bilaterally and symmetric chest movement *Routine Cardiovascular Exam Cardiovascular: Present RRR, Normal S1 and Normal S2 *Routine Abdominal Exam Abdominal: Present soft and normoactive bowel sounds; Absent tenderness *Routine Extremities Exam Extremities: Present edema, full ROM and normal capillary refill Comments: Chronic lymphedema noted to bilateral lower extremities *Routine Skin Exam Skin: Present intact, dry and warm Detailed Neck Exam: Thyroids Thyroid: Absent bruit Progress Note: A&P Assessment and plan (1) Unstable angina: Status: Acute (2) HFrEF (heart failure with reduced ejection fraction): Status: Acute (3) LV dysfunction: Status: Acute (4) Cardiomyopathy: Status: Acute (5) [place] filter in place: Status: Acute (6) SOB (shortness of breath): Status: Acute (7) Atrial fibrillation with controlled ventricular rate: Status: Acute Assessment and Plan Assessment and Plan for All Diagnoses:: History of nonobstructive coronary artery disease Unstable angina Abnormal stress test noted showing reversible defects Echo shows an EF of 25% Plan for left heart catheterization today. Discussed risk versus benefits with patient she is agreeable to proceed Continue aspirin and rosuvastatin. Patient is intolerant to atorvastatin. LifeVest ordered, will need placement prior to discharge New onset HFrEF-compensated Symptoms at baseline today. Reports she is always short of breath not worse than usual. Chronic lower extremity lymphedema noted EF 25% Continue Entresto, metoprolol, and Lasix Add Aldactone No Jardiance or Farxiga due to urinary incontinence History of A-fib Currently A-fib rate controlled Scheduled for outpatient TANYA/ cardioversion next week Continue Eliqumillie CV summary 03/22/2025: Left heart catheterization and LifeVest placement pending. Cardiac meds: Aspirin 81 mg p.o. daily Lasix 40 mg p.o. twice daily Metoprolol succinate 25 mg p.o. daily Entresto 24/26 mg p.o. twice daily Aldactone 25 mg p.o. daily No Farxiga or Jardiance due urinary incontinence
[2025-03-22] MEDS: NITROGLYCERIN 800MCG/8ML SYR (CATH LAB) 800 MCG IA (14:06)
[2025-03-22] MEDS: HEPARIN 1,000 UNITS/ML 10ML VIAL (CATH LAB) 5000 UNIT IV (14:07)
[2025-03-22] MEDS: 0.9 % SODIUM CHLORIDE 500 ML 999 ML IV (14:07)
[2025-03-22] MEDS: HEPARIN 1,000 UNITS/500ML NS (CATH LAB) 3000 UNIT IV (14:07)
[2025-03-22] MEDS: VERAPAMIL 2.5MG/ML 2ML VIAL 2.5 MG IV (14:07)
[2025-03-22] MEDS: LIDOCAINE 1% 10ML MDV 10 ML IJ (14:07)
--- NOTE | 2025-03-22 14:23 | EXP.ACUTE.PN ---
Subjective *Date: 03/22/25 *Time: 14:23 Interval history: Patient is doing well, awaiting [facility] today. Echo shows LVEF of 25%. Patient will be discharged home with LifeVest and GDMT medication for heart failure. She has no complaints today, no shortness of breath, no chest pain. N.p.o. for procedure, cardiac diet postprocedure. Medical Exam Vital signs and Labs for Last 24 Hours: Vital Signs Temp Pulse Pulse Pulse Resp BP Pulse Ox 03/22/25 12:00 80 03/22/25 12:00 97.7 F 86 12 119/74 99 03/22/25 08:39 03/22/25 08:00 80 03/22/25 08:00 98.2 F 88 12 108/81 L 98 03/22/25 07:58 03/22/25 06:45 03/22/25 05:00 03/22/25 04:00 70 03/22/25 04:00 97.6 F 84 16 105/60 L 97 03/22/25 03:00 03/22/25 01:00 03/22/25 00:00 90 03/22/25 00:00 97.9 F 86 16 113/80 96 03/21/25 23:00 03/21/25 21:00 03/21/25 20:00 90 03/21/25 20:00 03/21/25 20:00 97.5 F L 88 16 102/67 L 97 03/21/25 18:47 03/21/25 17:46 90 03/21/25 17:00 03/21/25 16:00 98.2 F 87 14 127/75 99 03/21/25 15:00 O2 Del Method 03/22/25 12:00 03/22/25 12:00 Room Air 03/22/25 08:39 Room Air 03/22/25 08:00 03/22/25 08:00 Room Air 03/22/25 07:58 Room Air 03/22/25 06:45 Room Air 03/22/25 05:00 Room Air 03/22/25 04:00 03/22/25 04:00 Room Air 03/22/25 03:00 Room Air 03/22/25 01:00 Room Air 03/22/25 00:00 03/22/25 00:00 Room Air 03/21/25 23:00 Room Air 03/21/25 21:00 Room Air 03/21/25 20:00 03/21/25 20:00 Room Air 03/21/25 20:00 Room Air 03/21/25 18:47 Room Air 03/21/25 17:46 03/21/25 17:00 Room Air 03/21/25 16:00 Room Air 03/21/25 15:00 Room Air Intake and Output 03/21/25 03/22/25 03/22/25 23:59 07:59 15:59 Intake Total 250 / 250 Output Total 0 / 0 0 / 0 Balance 0 / 730 250 / 250 Intake: Intake, Oral Amount 250 / 250 Output: Output, Urine Amount 0 / 0 0 / 0 Other: Number of Unmeasured Voids 1 1 Number of Bowel Movements 1 Weight 128.548 kg Patient Weight 03/22/25 23:59 Weight 128.548 kg Laboratory Results - last 24 hr 03/22/25 05:35: WBC 5.3, RBC 4.14 L, Hgb 12.0 L, Hct 37.9, MCV 91.5, MCH 29.0, MCHC 31.7 L, RDW 14.7, Plt Count 255, MPV 10.2, Neut % (Auto) 52.6, Lymph % (Auto) 35.6, [place] % (Auto) 9.1, Eos % (Auto) 1.9, Baso % (Auto) 0.4, Neut # (Auto) 2.8, Lymph # (Auto) 1.9, [place] # (Auto) 0.5, Eos # (Auto) 0.1, Baso # (Auto) 0.0, Sodium 135 L, Potassium 3.7, Chloride 104, Carbon Dioxide 30, Anion Gap 4.7 L, BUN 14, Creatinine 0.80, Estimated Creat Clear 55, Estimated GFR 73, Est GFR ( Amer) 88, Glucose 85, Calcium 8.5, Magnesium 2.3, Total Bilirubin 0.6, AST 27, ALT 15, Alkaline Phosphatase 111, Troponin I < 0.01, Total Protein 5.8 L, Albumin 3.4 L, Globulin 2.4, Albumin/Globulin Ratio 1.4 I & O for Labs for Last 24 Hours: Intake & Output 03/19/25 03/20/25 03/21/2503/22/25 23:59 23:59 23:59 23:59 Intake Total 480 / 730 250 / 250 Output Total 0 / 0 0 / 0 Balance 480 / 730 250 / 250 Weight 129.274 kg 128.548 kg Constitutional: Present no acute distress, morbidly obese, chronically ill appearing and cooperative Head: Present atraumatic Eyes: Present as per HPI ENT: Present normal exam Neck: Present normal inspection Respiratory: Present CTA bilaterally and normal respiratory effort; Absent wheezes or crackles Cardiac: Present Reg Rate and Rhythm GI: Present soft and normal bowel sounds; Absent distention Rectal (female): Present deferred (female): Present deferred Extremities: Present normal inspection and edema (Lymphedema noted bilateral lower extremities, nonpitting) Skin: Present intact and dry Comment:: Vascular changes lower extremities Neuro: Present alert, awake and oriented x 3 Assessment and Plan *Assessment and plan (1) Unstable angina: Status: Acute Category: Medical Code(s): I20.0 - Unstable angina (2) HFrEF (heart failure with reduced ejection fraction): Status: Acute Category: Medical Code(s): I50.20 - Unspecified systolic (congestive) heart failure (3) LV dysfunction: Status: Acute Category: Medical Code(s): I51.9 - Heart disease, unspecified (4) Cardiomyopathy: Status: Acute Qualifiers: Cardiomyopathy type: other Qualified Code(s): I42.8 - Other cardiomyopathies Category: Medical Code(s): I42.9 - Cardiomyopathy, unspecified (5) Nicol filter in place: Status: Acute Category: Medical Code(s): Z95.828 - Presence of other vascular implants and grafts (6) SOB (shortness of breath): Status: Acute Category: Medical Code(s): R06.02 - Shortness of breath (7) Atrial fibrillation with controlled ventricular rate: Status: Acute Category: Medical Code(s): I48.91 - Unspecified atrial fibrillation Plan Ms. Lorenzana is a 60-year-old female who was directly admitted from the cardiology office yesterday due to unstable angina, intermittent shortness of breath, and reduced ejection fraction. Patient has a known primary medical history of CAD, hypertension, hyperlipidemia, osteoporosis, osteoarthritis, history of DVT with [place] filter in place, lymphedema of lower extremities, sacroiliitis, atrial fibrillation, bariatric surgery, HFrEF, GERD, depression/anxiety. She presented to her cardiology office to follow-up on a recent echocardiogram. At this time she voiced complaints of having intermittent chest pain/pressure and shortness of breath at rest over the last few days. She continues to have edema in bilateral lower extremities. Patient had Myoview test showing large sized, moderate, partial reversible perfusion defect in the anterior and anterolateral LV cochran. LVEF was calculated at 9%. Patient then had TTE which showed severely reduced LV systolic function of 25%. Patient recently had a colonoscopy on 02/28/2025 at which time she went into atrial fibrillation (rate controlled) and cardiology was consulted and recommended patient be started on Eliquis and follow-up with their office. Due to reduced EF and unstable angina patient was directly admitted to the hospital for continued care and plans for left heart cath today. I agreed to admit the patient, plan of care as follows: #Unstable angina #HFrEF #LV dysfunction #Cardiomyopathy #A-fib ? Patient admitted to the medical surgical floor on continuous telemetry monitoring. Patient currently in rate controlled atrial fibrillation. Patient denies chest pain or shortness of breath currently. Bilateral lower extremity edema noted on exam. Echo performed on 03/16/2025 shows severe reduction in LV systolic function of 25%, biatrial dilation, RVSP 25?30. Patient will need LifeVest fitted prior to discharge. ?Patient went for left heart cath today ? Patient's BNP elevated at 2950. Patient currently takes regimen of Lasix 40 mg twice daily, will give one-time dose of additional 40 mg Lasix IV now. Plans for [facility] tomorrow to evaluate perfusion defect and LV dysfunction. ? Will continue patient's home cardiac medications of Entresto twice daily, rosuvastatin 20 mg daily, metoprolol 25 mg daily, Lasix 40 mg twice daily, aspirin 81 mg daily, and Eliquis 5 mg twice daily. ? Cardiology consulted and following. Chest x-ray ordered, no acute findings noted on x-ray. Patient remains hemodynamically stable and on room air. ? Lab work overall reassuring, sodium 135, potassium 3.7, normal kidney function creatinine 0.80, magnesium 2.3 TSH 0.81, negative troponin. #Morbid obesity: Patient BMI 44.6, complicates all aspects of care. Continue chronic medication of methocarbamol 750 mg 3 times daily as needed, gabapentin 300 mg 3 times daily, duloxetine 30 mg daily, baclofen 10 mg 3 times daily. Full code N.p.o. for procedure, cardiac diet postprocedure Ambulate as tolerated VTE?Will
[2025-03-22] MEDS: FENTANYL 100MCG/2ML VIAL 50 MCG IV (14:27)
[2025-03-22] MEDS: MIDAZOLAM HCL 1MG/ML 5ML VIAL 1 MG IV (14:27)
[2025-03-22] MEDS: IOPAMIDOL-370 (76%);100ML BOTTLE 50 ML IV (15:07)
--- NOTE | 2025-03-22 15:29 | P.DS_ITS ---
<Statement entered by Chris Vallecillo MD - 03/27/25 11:08> Agree with plan of care as outlined by the [employer]. General Admission date:: 03/21/25 Discharge date: 03/22/25 HPI HPI HPI: Ms. Ontiveros is a 60-year-old female who was directly admitted from the cardiology office today due to unstable angina, intermittent shortness of breath, and reduced ejection fraction. Patient has a known primary medical history of CAD, hypertension, hyperlipidemia, osteoporosis, osteoarthritis, history of DVT with Nicol filter in place, lymphedema of lower extremities, sacroiliitis, atrial fibrillation, bariatric surgery, HFrEF, GERD, depression/anxiety. She presented to her cardiology office today to follow-up on a recent echocardiogram. At this time she voiced complaints of having intermittent chest pain/pressure at rest over the last few days. She continues to have edema in bilateral lower extremities. Hospital Course Hospital Course Hospital Course: Ms. Lorenzana is a 60-year-old female who was directly admitted from the cardiology office yesterday due to unstable angina, intermittent shortness of breath, and reduced ejection fraction. Patient has a known primary medical history of CAD, hypertension, hyperlipidemia, osteoporosis, osteoarthritis, history of DVT with Nicol filter in place, lymphedema of lower extremities, sacroiliitis, atrial fibrillation, bariatric surgery, HFrEF, GERD, depression/anxiety. She presented to her cardiology office to follow-up on a recent echocardiogram. At this time she voiced complaints of having intermittent chest pain/pressure and shortness of breath at rest over the last few days. She continues to have edema in bilateral lower extremities. Patient had Myoview test showing large sized, moderate, partial reversible perfusion defect in the anterior and anterolateral LV cochran. LVEF was calculated at 9%. Patient then had TTE which showed severely reduced LV systolic function of 25%. Patient recently had a colonoscopy on 02/28/2025 at which time she went into atrial fibrillation (rate controlled) and cardiology was consulted and recommended patient be started on Eliquis and follow-up with their office. Due to reduced EF and unstable angina patient was directly admitted to the hospital for continued care and plans for left heart cath today. I agreed to admit the patient, hospital course as follows: #Unstable angina #HFrEF #LV dysfunction #Cardiomyopathy #A-fib ? Patient admitted to the medical surgical floor on continuous telemetry monitoring. Patient currently in rate controlled atrial fibrillation. Patient denies chest pain or shortness of breath currently. Bilateral lower extremity edema noted on exam. Echo performed on 03/16/2025 shows severe reduction in LV systolic function of 25%, biatrial dilation, RVSP 25?30. Patient fitted for LifeVest prior to discharge. ? Patient went for left heart cath today mild nonocclusive coronary artery disease noted, severely dilated ventricle with severely hypokinetic EF, elevated LVEDP. Recommendations for GDMT, diuresis, LifeVest. ? Patient's BNP elevated at 2950. Patient currently takes regimen of Lasix 40 mg twice daily, received one-time dose of additional 40 mg Lasix IV. Continue Lasix 40 mg twice daily at discharge. Additionally adding spironolactone 25 mg daily. Patient will follow-up with cardiology office in 1 week. ? Will continue patient's home cardiac medications of Entresto twice daily, rosuvastatin 20 mg daily, metoprolol 25 mg daily, Lasix 40 mg twice daily, aspirin 81 mg daily, and Eliquis 5 mg twice daily. ? Cardiology consulted and following. Chest x-ray ordered, no acute findings noted on x-ray. Patient remains hemodynamically stable and on room air. ? Lab work overall reassuring, sodium 135, potassium 3.7, normal kidney function creatinine 0.80, magnesium 2.3 TSH 0.81, negative troponin. #Morbid obesity: Patient BMI 44.6, complicates all aspects of care. Continue chronic medication of methocarbamol 750 mg 3 times daily as needed, gabapentin 300 mg 3 times daily, duloxetine 30 mg daily, baclofen 10 mg 3 times daily. Total time spent on discharge 32 minutes in counseling, documentation, chart review, and direct care with patient. Exam Data for Last 24 hours Vital signs and Labs for Last 24 Hours: Temp Pulse Resp BP Pulse Ox O2 Del Method 97.7 F 87 20 123/73 92 L Room Air 03/22/25 12:00 03/22/25 14:51 03/22/25 14:51 03/22/25 14:51 03/22/25 14:51 03/22/25 14:51 Laboratory Results - last 24 hr 03/22/25 05:35: WBC 5.3, RBC 4.14 L, Hgb 12.0 L, Hct 37.9, MCV 91.5, MCH 29.0, MCHC 31.7 L, RDW 14.7, Plt Count 255, MPV 10.2, Neut % (Auto) 52.6, Lymph % (Auto) 35.6, [place] % (Auto) 9.1, Eos % (Auto) 1.9, Baso % (Auto) 0.4, Neut # (Auto) 2.8, Lymph # (Auto) 1.9, [place] # (Auto) 0.5, Eos # (Auto) 0.1, Baso # (Auto) 0.0, Sodium 135 L, Potassium 3.7, Chloride 104, Carbon Dioxide 30, Anion Gap 4.7 L, BUN 14, Creatinine 0.80, Estimated Creat Clear 55, Estimated GFR 73, Est GFR ( Amer) 88, Glucose 85, Calcium 8.5, Magnesium 2.3, Total Bilirubin 0.6, AST 27, ALT 15, Alkaline Phosphatase 111, Troponin I < 0.01, Total Protein 5.8 L, Albumin 3.4 L, Globulin 2.4, Albumin/Globulin Ratio 1.4 I & O for Last 24 hours: Intake & Output 03/19/25 03/20/25 03/21/25 03/22/25 23:59 23:59 23:59 23:59 Intake Total 480 / 730 750 / 750 Output Total 0 / 0 0 / 0 Balance 480 / 730 750 / 750 Weight 129.274 kg 128.548 kg Constitutional Constitutional: no acute distress, morbidly obese and cooperative *Routine HEENT Exam Head: Present normocephalic Eye: Present EOMI ENT: Present mucous membranes moist *Routine Neck Exam Neck: Present supple and full ROM *Routine Respiratory Exam Respiratory: Present CTA bilaterally, normal respiratory effort and symmetric chest movement; Absent wheezes or crackles *Routine Cardiovascular Exam Cardiovascular: Present RRR, Normal S1 and Normal S2 *Routine Abdominal Exam Abdominal: Present soft and normoactive bowel sounds; Absent tenderness *Routine Rectal Exam Patient deferred: visual exam *Routine Exam Patient deferred: external exam *Routine Extremities Exam Extremities: Present edema, full ROM and normal capillary refill Comments: Chronic lymphedema noted to bilateral lower extremities *Routine Skin Exam Skin: Present intact, dry and warm Detailed Neck Exam: Thyroids Thyroid: Absent bruit Results Data Completed and Pending Labs on day of discharge: Labs from last 24 hours 03/22/25 05:35 WBC 5.3 RBC 4.14 L Hgb 12.0 L Hct 37.9 MCV 91.5 MCH 29.0 MCHC 31.7 L RDW 14.7 Plt Count 255 MPV 10.2 Neut % (Auto) 52.6 Lymph % (Auto) 35.6 [place] % (Auto) 9.1 Eos % (Auto) 1.9 Baso % (Auto) 0.4 Neut # (Auto) 2.8 Lymph # (Auto) 1.9 [place] # (Auto) 0.5 Eos # (Auto) 0.1 Baso # (Auto) 0.0 Sodium 135 L Potassium 3.7 Chloride 104 Carbon Dioxide 30 Anion Gap 4.7 L BUN 14 Creatinine 0.80 Estimated Creat Clear 55 Estimated GFR 73 Est GFR ( Amer) 88 Glucose 85 Calcium 8.5 Magnesium 2.3 Total Bilirubin 0.6 AST 27 ALT 15 Alkaline Phosphatase 111 Troponin I < 0.01 Total Protein 5.8 L Albumin 3.4 L Globulin 2.4 Albumin/Globulin Ratio 1.4 DS: Diagnosis Discharge Diagnosis (1) Unstable angina: Status: Acute Code(s): I20.0 - Unstable angina (2) HFrEF (heart failure with reduced ejection fraction): Status: Acute Code(s): I50.20 - Unspecified systolic (congestive) heart failure (3) LV dysfunction: Status: Acute Code(s): I51.9 - Heart disease, unspecified (4) Cardiomyopathy: Status: Acute Code(s): I42.9 - Cardiomyopathy, unspecified Qualifiers: Cardiomyopathy type: other Qualified Code(s): I42.8 - Other cardiomyopathies (5) [place] filter in place: Status: Acute Code(s): Z95.828 - Presence of other vascular implants and grafts (6) SOB (shortness of breath): Status: Acute Code(s): R06.02 - Shortness of breath (7) Atrial fibrillation with controlled ventricular rate: Status: Acute Code(s): I48.91 - Unspecified atrial fibrillation Meds Home Medications and Allergies Home Medications ?Medication ?Instructions ?Recorded ?Confirmed ?Type aspirin 81 mg tablet 81 mg PO DAILY 10/12/2403/04 History cholecalciferol (vitamin D3) 125 125 mcg PO DAILY 10/0203/21/25 History mcg (5,000 unit) capsule folic acid 1 mg tablet 1 mg PO DAILY 10/12/2403/21 History minocycline 100 mg capsule 100 mg PO BID 10/12/2403/04 History polysaccharide iron complex 180 mg 180 mg PO DAILY #30 caps 12/16/24 03/21/25 Rx iron capsule (Pro Fe) duloxetine 30 mg capsule,delayed 30 mg PO DAILY #90 ca ps 01/10/25 03/21/25 Rx release pantoprazole 40 mg tablet,delayed 40 mg PO DAILY #90 t abs 01/10/25 03/21/25 Rx release gabapentin 300 mg capsule 300 mg PO TID #90 caps 01/3103/21/25 Rx metoprolol succinate 25 mg 25 mg PO DAILY #30 tabs 03/21/25 Rx tablet,extended release 24 hr tirzepatide 5 mg/0.5 mL 5 mg SQ WEEKLY 03/07/2503/04 History subcutaneous pen injector (Antonio) furosemide 40 mg tablet 40 mg PO BID #180 tabs 03/1003/21/25 Rx potassium chloride 10 mEq 10 meq PO DAILY #30 tabs 11/2503/21/25 Rx tablet,extended release (Klor-Con) lidocaine 5 % topical patch 1 patch topical DAILY #30 ea 03/15/25 03/21/25 Rx albuterol sulfate 90 mcg/actuation 2 puff inhalation Q 4HP PRN 03/21/25 03/21/25 History aerosol inhaler (Ventolin HFA) shortness of breath or wheezing apixaban 5 mg tablet (Eliquis) 5 mg PO BID 03/21/25 History baclofen 10 mg tablet 10 mg PO TID 03/21/25 History ibandronate 150 mg tablet 150 mg PO MONTHLY 03/21/2505/21/24 History methocarbamol 750 mg tablet 750 mg PO TIDP PRN Muscle spasms 03/21/25 03/21/25 History rosuvastatin 20 mg tablet (Crestor) 20 mg PO DAILY #30 tabs 03/21/25 03/21/25 Rx sacubitril 24 mg-valsartan 26 mg 1 tab PO BID #60 tabs 03/21/25 03/21/25 Rx tablet (Entresto) spironolactone 25 mg tablet 25 mg PO DAILY 30 days #30 tabs 03/22/25 Rx New Prescriptions to Start Prescriptions: spironolactone Jacquie Campbell Allergies Allergy/AdvReac Type Severity Reaction Status Date / Time morphine Allergy Severe Chest Pain Verified 03/21/25 09:38 sulfamethoxazole (From Allergy Severe Nausea Verified 03/21/25 09:38 Bactrim) trimethoprim (From Bactrim) Allergy Severe Nausea Verified 03/21/25 09:38 atorvastatin AdvReac myalgia Verified 03/21/25 10:52 Discharge Plan Disposition Patient Disposition: Home, Self-Care Condition: Good Follow up Plan Follow up with: Ivelisse Montoya APRN [Nurse Practitioner, Cardiology] - Enter time for follow up Abby Phillip APRN [Primary Care Provider, Medical] - Enter time for follow up Prescriptions/Medication Reconciliation: New spironolactone 25 mg Tablet 25 mg PO DAILY 30 Days Qty: 30 0RF Continued minocycline 100 mg capsule 100 mg PO BID folic acid 1 mg tablet 1 mg PO DAILY aspirin 81 mg tablet 81 mg PO DAILY cholecalciferol (vitamin D3) 125 mcg (5,000 unit) capsule 125 mcg PO DAILY lidocaine 5 % adhesive patch,medicated 1 patch topical DAILY Qty: 30 0RF Rx Instructions: leave on most painful area for up to 12 hrs Mounjaro 5 mg/0.5 mL pen injector 5 mg SQ WEEKLY rosuvastatin [Crestor] 20 mg tablet 20 mg PO DAILY Qty: 30 2RF sacubitril-valsartan [Entresto] 24-26 mg tablet 1 tab PO BID Qty: 60 5RF potassium chloride [Klor-Con 10] 10 mEq tablet extended release 10 meq PO DAILY Qty: 30 2RF furosemide 40 mg tablet 40 mg PO BID Qty: 180 0RF Pro Fe 180 mg iron capsule 180 mg PO DAILY Qty: 30 4RF duloxetine 30 mg capsule,delayed release(DR/EC) 30 mg PO DAILY Qty: 90 2RF pantoprazole 40 mg tablet,delayed release (DR/EC) 40 mg PO DAILY Qty: 90 2RF gabapentin 300 mg capsule 300 mg PO TID Qty: 90 0RF metoprolol succinate 25 mg tablet extended release 24 hr 25 mg PO DAILY Qty: 30 2RF methocarbamol 750 mg tablet 750 mg PO TIDP PRN (Reason: Muscle spasms) baclofen 10 mg tablet 10 mg PO TID albuterol sulfate [Ventolin HFA] 90 mcg/actuation HFA aerosol inhaler 2 puff inhalation Q4HP PRN (Reason: shortness of breath or wheezing) ibandronate 150 mg tablet 150 mg PO MONTHLY Eliquis 5 mg tablet 5 mg PO BID Problem Reconciliation Problems Reviewed?: Yes Patient Discharge Instructions ACTIVITY: Continue current activity and No heavy lifting DIET: continue same diet Patient Instructions: DI for Cardiac Catheterization, DI for Atrial Fibrillation, DI for Surgical Site Infection, Stop Light Heart Failure Print Language: Belarusian Providers Primary Care Provider: Abby Phillip Admit Provider: Chris Vallecillo Attending Provider: Chris Vallecillo
--- NOTE | 2025-03-23 10:46 | SW/DCPLANNER ---
Spoke with patient on the phone. Patient stated that she is feeling good. Patient stated that she is aware of her upcoming appointments. Patient stated that she was able to roll picker her new medicine from the clinic pharmacy. Patient stated that she has no concerns or questions at this time. Selena Urbina
== END 2025-03-22 18:15 | disposition home or self-care (01) ==
PROVIDERS: Internal Medicine; Admitting Provider Student in an Organized Health Care Education/Training Program; PCP Nurse Practitioner Family; Visit Provider Student in an Organized Health Care Education/Training Program
PROC: 4A023N7 Measurement of Cardiac Sampling and Pressure, Left Heart, Percutaneous Approach (ICD-10-PCS; CPT 93452; principal; 2025-03-22 12:30)
DX: I25.110 Atherosclerotic heart disease of native coronary artery with unstable angina pectoris (principal); I11.0 Hypertensive heart disease with heart failure; I50.21 Acute systolic (congestive) heart failure; I48.91 Unspecified atrial fibrillation; I42.8 Other cardiomyopathies; Z95.828 Presence of other vascular implants and grafts; R06.02 Shortness of breath; E78.5 Hyperlipidemia, unspecified; Z86.718 Personal history of other venous thrombosis and embolism; R07.9 Chest pain, unspecified; I89.0 Lymphedema, not elsewhere classified; I25.2 Old myocardial infarction; Z79.82 Long term (current) use of aspirin; Z79.899 Other long term (current) drug therapy; Z79.01 Long term (current) use of anticoagulants; Z79.85 Long-term (current) use of injectable non-insulin antidiabetic drugs; Z88.5 Allergy status to narcotic agent; Z88.8 Allergy status to other drugs, medicaments and biological substances; Z88.2 Allergy status to sulfonamides; E87.6 Hypokalemia; E66.01 Morbid (severe) obesity due to excess calories; Z98.84 Bariatric surgery status; Z68.41 Body mass index [BMI] 40.0-44.9, adult
CPT/HCPCS: 36415; 71045; 80053; 83735; 83880; 84443; 84484; 85025; 85610; 93458; 99152; C1769; C1887; G0378; J1200; J1644; J1938; J2003; J2250; J3010; J7040; Q9967

== ENCOUNTER 2025-03-28 08:10 | Day surgery (SDC) | payer MEDICARE, SELFPAY ==
[2025-03-28 08:30] VITALS: BMI 44.6
[2025-03-28 08:40] VITALS: BP 125/62; PULSE 60; RESP 18; TEMP 36.2; O2SAT 99
[2025-03-28 08:56] LABS: Hematocrit 43.8 % (37.0-47.0); Hemoglobin 13.8 g/dL (12.2-16.2); Immature Granulocytes % 0.2 %; Mean Corpuscular HGB Conc 31.5 g/dL (31.8-35.4); Mean Corpuscular Hemoglobin 29.4 pg (27.0-31.2); Mean Corpuscular Volume 93.2 fl (81-99); Nucleated Red Blood Cells % 0 %; Platelet Count 299 K/mm3 (142-424); Red Blood Count 4.70 M/mm3 (4.20-5.40); Red Cell Distribution Width-SD 48.9 fL; White Blood Count 6.4 K/mm3 (4.8-10.8)
[2025-03-28] MEDS: LACTATED RINGERS 1000ML 1,000 ML 50 ML IV (08:58)
[2025-03-28 09:08] LABS: INR 1.05 (0.9-1.1); Prothrombin Time 11.6 seconds (10.1-12.5)
[2025-03-28 09:11] LABS: Anion Gap 11.0 mEq/L (5-15); Blood Urea Nitrogen 24 mg/dl (7-17); Calcium 9.1 mg/dl (8.4-10.2); Carbon Dioxide 27 mmol/L (22.0-30.0); Chloride 103 mmol/L (98-107); Creatinine Clearance Estimated 57 mL/min (50-200); Creatinine,Serum 1.00 mg/dl (0.52-1.04); Estimated Glomerular Filt Rate 56 ml/min (>60); GFR (African American) 68 ML/MIN (>60); Glucose 95 mg/dl (74-100); Potassium 4.0 mmoL/L (3.5-5.1); Sodium 137 mmol/L (136-145)
--- NOTE | 2025-03-28 09:31 | EXP.ANES.CKL ---
[facility] Disclaimer: The information contained in this section may have been updated after the patient was seen, as this information can be updated by other users. Medical History Atrial fibrillation with controlled ventricular rate Screening for colon cancer Acute bronchitis Breast cancer screening Colon cancer screening Afib [place] filter in place Abnormal ECG SOB (shortness of breath) CAD (coronary artery disease) Hx of deep venous thrombosis Encounter for pre-operative examination Lumbar radiculopathy Heart attack Hyperlipidemia Nerve damage of left foot Osteoporosis Encounter for routine gynecological examination Post-menopausal bleeding Osteoarthritis Obesity Surgical History H/O breast augmentation S/P cholecystectomy H/O hernia repair H/O total ankle replacement H/O gastric bypass Family History Father Diabetes Coronary artery disease Brother Diabetes Family/Other Blood clot in vein Blood disease Social History (Updated 03/28/25 @ 08:42 by Maria Eugenia Izaguirre RN) Smoking Status: Never smoker second hand exposure: No (previously) alcohol intake: never substance use type: denies use current occupational status: disabled Travel in the last 8 weeks?: None caffeine: Yes Have you lived/traveled outside [place] in past 30 days?: No Contact w/someone who lives/traveled outside US past 30 days?: No Exposure to someone with infectious disease in past 14 days?: No Do you have a fever (greater than 100.4 F or 38 C)?: No Have you tested positive for COVID-19?: No Exposed to someone with COVID-19 in past 14 days?: No Do you have a sore throat?: No Do you have a cough?: No Do you have any weakness?: No Are you experiencing any nausea/vomitting?: No Do you have any diarrhea?: No Are you experiencing any unusual bleeding?: No Do you have any muscle aches/pain?: No Do you have any abdominal pain?: No Are you experiencing loss of taste or smell?: No [facility] Anesthesia Checklist Patient Identification Patient Identification: Arm Band and Family Structural Data Admitted From: Home (CHARLEY) Planned Operative Procedure/s: charley\ Consent for Planned Operative Procedure(s) Verified: Yes Verified Documents: Surgical Consent and History and Physical NPO Status Verified Time NPO: 00:00 Additional verifications Patient : No Anesthesia Reactions: No Hx Blood Transfusions: No Blood Transfusion Reaction: No Cephalosporin Allergy: No Previous Colonoscopy: Yes Airway Assessment Mallampati Score:: Class I C-Spine Mobility Assessed: Yes TMJ Mobility Assessed: Yes Dentition: Good Dentition Neurological Assessment Level of Consciousness: Awake, Appropriate and Follows Commands Hx Seizures: No Numbness or tingling in extremities: No Anesthesia Plan Anesthesia Risk discussed: Yes ASA Class: II Anesthesia Type: MAC Preoperative Comments Pre-Operative Comments: Gastric bypass 2001. Still on eliquis. ?Left side of heart at 9%.
--- NOTE | 2025-03-28 10:00 | CA_ITS ---
APPROVED REPORT EXAM: Comprehensive 2D, Doppler, and color-flow Echocardiogram Rod Finisher: Toshia Gaona JANAK Ht: 5 ft 7 in Wt: 299lbs BSA: 2.40 BP: 142/111 mmHg Indications: A-FIB WITH CARDIOVERSION Procedure After obtaining informed consent, patient underwent transesophageal echo in the [facility]. Type of Sedation : MAC The TANYA was performed without complications. Synchronized Cardioversion acheived with 150 Joules after 1 attempt(s). Rhythm following Synchronized Cardioversion: Normal Sinus Rhythm Throughout the procedure, the blood pressure, pulse oximetry, cardiac rhythm, and rate were monitored. The patient tolerated the procedure without adverse effects. Recovery from conscious sedation was uneventful and vital signs were stable. Left Ventricle The left ventricle is normal size. The left ventricular systolic function is severely reduced. There is increased LV wall thickness. There is severe global hypokinesis present. LVEF is 25%. Right Ventricle Right ventricle is mildly dilated. The right ventricular systolic function is normal. Atria Left atrium is dilated. No thrombus is visualized in the left atrium or appendage. The right atrium size is normal. Small PFO is noted. Aortic Valve The aortic valve is normal in structure. The aortic valve is trileaflet. There is no aortic valvular stenosis. Mild aortic regurgitation. Mitral Valve The mitral valve is normal in structure. Mild mitral regurgitation. Tricuspid Valve Tricuspid valve is grossly normal in structure and function. Mild tricuspid regurgitation. RVSP is 13 mmHg + RA pressure. Pulmonic Valve The pulmonary valve is normal in structure. Mild pulmonic regurgitation. Great Vessels The aortic root is normal in size. IVC is normal in size and collapses >50% with inspiration. Pericardium There is no pericardial effusion. Other Information Study Quality: Fair Conclusion Severe reduction in LV systolic function (LVEF 25%). Mild RV dilation. Biatrial dilation. Mild AI, mild MR, mild TR, mild PI. No evidence of LA or VANESSA thrombus. Small PFO incidentally noted. Electronically signed by : Liliya Odonnell MD 04/12/2025 12:09:28
[2025-03-28 10:45] VITALS: BP 110/72; PULSE 65; RESP 16; TEMP 36.4; O2SAT 99
--- NOTE | 2025-03-28 10:51 | ECG_ITS ---
APPROVED REPORT Exam: Resting ECG HR:72 bpm ECG Measurements Heart Rate 72 AXES QRSd 102 QRS -27 QT 383 T -24 QTc 407 Conclusion Siinus bradycardia with PAC noted LAD Poor r wave progression POSSIBLE ANTERIOR MYOCARDIAL INFARCTION , PROBABLY OLD [30 ms Q WAVE IN V3/V4, OR R < 0.2 mV IN V4] ABNORMAL RHYTHM ECG UNCONFIRMED REPORT Electronically signed by : Alberto Esposito MD 03/29/2025 08:44:37
[2025-03-28 10:55] VITALS: BP 110/72; PULSE 65; RESP 16; TEMP 36.4; O2SAT 99
[2025-03-28 11:05] VITALS: BP 101/71; PULSE 66; RESP 17; TEMP 36.4; O2SAT 100
[2025-03-28 11:15] VITALS: BP 107/75; PULSE 61; RESP 16; TEMP 36.4; O2SAT 100
== END 2025-03-28 11:40 | disposition home or self-care (01) ==
PROVIDERS: PCP Nurse Practitioner Family; Visit Provider Internal Medicine
PROC: (CPT 93312; principal; 2025-03-28 10:00)
PROC: 5A2204Z Restoration of Cardiac Rhythm, Single (ICD-10-PCS; 2025-03-28 10:00)
DX: I51.7 Cardiomegaly (principal); I50.20 Unspecified systolic (congestive) heart failure; I48.91 Unspecified atrial fibrillation; I25.10 Atherosclerotic heart disease of native coronary artery without angina pectoris; I89.0 Lymphedema, not elsewhere classified; R06.02 Shortness of breath; R94.31 Abnormal electrocardiogram [ECG] [EKG]; I73.9 Peripheral vascular disease, unspecified; E78.5 Hyperlipidemia, unspecified; D64.9 Anemia, unspecified; E66.9 Obesity, unspecified; I25.2 Old myocardial infarction; Z98.84 Bariatric surgery status; Z86.718 Personal history of other venous thrombosis and embolism; Z95.828 Presence of other vascular implants and grafts; Z79.01 Long term (current) use of anticoagulants; Z79.82 Long term (current) use of aspirin; Z79.2 Long term (current) use of antibiotics; Z79.899 Other long term (current) drug therapy; Z88.1 Allergy status to other antibiotic agents; Z88.5 Allergy status to narcotic agent; Z88.2 Allergy status to sulfonamides; Z88.8 Allergy status to other drugs, medicaments and biological substances; Z82.49 Family history of ischemic heart disease and other diseases of the circulatory system; Z68.41 Body mass index [BMI] 40.0-44.9, adult
CPT/HCPCS: 80048; 85025; 85610; 92960; 93005; 93270; 93312; 93319; J2003; J2704; J7120

== ENCOUNTER 2025-04-10 10:38 | Outpatient (CLI) | payer MEDICARE, SELFPAY ==
--- NOTE | 2025-04-10 10:30 | MR_ITS ---
APPROVED REPORT Personal Driver: CLINICAL INDICATION Cardiomyopathy evaluation TECHNIQUE Image Acquisition: Cardiac magnetic resonance (CMR) was performed on Siemens Espree MRI 1.5T scanner. Software platform sequences were performed using the Siemens Biba MR B19 platform. A set of three-plane, low-resolution, large [id number] localizers were initially acquired. Then axial, coronal, sagittal TrueFISP, as well as axial HASTE images, were obtained. These were followed by gated TrueFISP breathold cinematic sequences obtained in the short axis with 8 mm slices and 2 mm gaps, 2-chamber (vertical long axis), 3-chamber, 4-chamber (horizontal long axis). A bolus of contrast was injected intravenously with first-pass sequences obtained in the short axis and four-chamber planes. After approximately 10 minutes, a TI card filer sequence was performed to determine the optimal TI time. Using the optimized TI time, delayed contrast enhancement segmented inversion???recovery TurboFLASH sequences were obtained in the short axis, 2-chamber, 3-chamber, and 4-chamber projections. 2D-velocity phase mapping was performed. Functional parameters were calculated by offline analysis on an independent workstation ([employer] Platform, Card Capture Services). Contrast: ProHance??? (Gadoteridol) FINDINGS MORPHOLOGY AND FUNCTION Left ventricle: The left ventricle is normal in size. The indexed left ventricular end-diastolic volume (LVEDVi) is 58 ml/m2 (reference range 57-105 ml/m2 in males, 56-96 ml/m2 in females). Severe reduction in left ventricular systolic function is present. There is normal left ventricular wall thickness. The septum is asynchronous. There are no regional wall motion abnormalities noted. LVEF is calculated at 25.7% (reference range 57-77%). Right ventricle: The right ventricle is normal in size. The indexed right ventricular end-diastolic volume (RVEDVi) is 43 ml/m2 (reference range 61-121 ml/m2 in males, 48-112 ml/m2 in females). Moderate reductoin in right ventricular systolic function is present. RVEF is calculated at 32.7% (reference range 52-72% in males, 51-71% in females). Atria: The left atrium is normal in size. The maximum indexed left atrial volume is 28 ml/m2 (reference range 26-52 ml/m2 in males, 27-53 ml/m2 in females). The right atrium is normal in size. The maximum indexed right atrial volume is 18 ml/m2 (reference range 18-90 ml/m2). Aorta: The diameter of the aortic annulus is normal, measuring 26 mm (coronal view reference range 21-30 mm in males, 19-27 mm in females). The diameter of the aortic sinus is normal, measuring 35 mm (coronal view reference range 25-42 mm in males, 24-36 mm in females). The diameter of the sinotubular junction is normal, measuring 28 mm (coronal view reference range 18-32 mm in males, 18-28 mm in females). The diameters of the ascending and descending thoracic aorta are normal. Main pulmonary artery: The main pulmonary artery diameter is normal. Pericardium: The pericardial thickness is normal. The pericardial thickness measures 1.0 mm (normal < 4.0 mm). There is no pericardial effusion. VALVES The valvular morphologies in the visualized sequences appear normal. There is no significant valvular stenosis or regurgitation of the mitral, aortic, tricuspid, or pulmonic valve noted visually. Systolic anterior motion of the mitral valve is not visualized. Ratio of pulmonary to systemic flow, Qp:Qs ratio = 1.23 (normal < or = 1.2, hemodynamically significant shunt > 1.5), demonstrating no evidence of hemodynamically significant shunt. TISSUE CHARACTERIZATION Resting Perfusion: Normal myocardial blood flow at rest. No evidence of resting hypoperfusion. Myocardial Fibrosis and/or edema: Normal gadolinium kinetics are present. No evidence of late gadolinium enhancement is noted, consistent with absence of myocardial scarring, infarction, or necrosis. T2-weighted imaging demonstrates no evidence of myocardial edema or inflammation. OTHER No other significant findings are noted. However, this exam is focused on the cardiac structure and function. IMPRESSION Normal LV size with severe reduction in LV systolic function. LVEDVi= 58 ml/m2 and LVEF= 25.7%. Asynchronous septum. Normal RV size with moderate reduction in RV systolic function. RVEDVi= 43 ml/m2 and RVEF= 32.7%. No atrial enlargement. No CMR evidence of myocardial scarring, infarction, or necrosis. No evidence of myocardial edema or inflammation. Perfusion analysis demonstrates normal blood flow at rest with no evidence of resting hypoperfusion. Ratio of pulmonary to systemic flow, Qp:Qs ratio = 1.23 (normal < or = 1.2, hemodynamically significant shunt > 1.5), demonstrating no evidence of hemodynamically significant shunt. COMPARISON None CRITICAL RESULT None COMMUNICATION The above findings were relayed to the patient at the time of the routine outpatient cardiology follow-up visit, prior to dictation of this report. The findings of this cardiac MR were reviewed, reported, and signed by Chris Odonnell MD ([employer]). Conclusion Electronically signed by : Liliya Odonnell MD 04/25/2025 15:56:40
[2025-04-10] MEDS: GADOTERIDOL INJ 20ML SYRINGE 27 ML IV (12:05)
[2025-04-10] MEDS: 0.9 % SODIUM CHLORIDE 50 ML VIAL IV (12:05)
== END 2025-04-10 23:59 | disposition home or self-care (01) ==
LOC: RAD 10:38
PROVIDERS: PCP Nurse Practitioner Family; Visit Provider Physician Assistant
DX: I50.20 Unspecified systolic (congestive) heart failure (principal); I42.8 Other cardiomyopathies; Z95.828 Presence of other vascular implants and grafts; I73.9 Peripheral vascular disease, unspecified; D64.89 Other specified anemias; Z86.718 Personal history of other venous thrombosis and embolism; I89.0 Lymphedema, not elsewhere classified; R93.1 Abnormal findings on diagnostic imaging of heart and coronary circulation; R94.31 Abnormal electrocardiogram [ECG] [EKG]
CPT/HCPCS: 75561; A9576

== ENCOUNTER 2025-05-02 08:47 | Outpatient (CLI) | payer MEDICARE, SELFPAY ==
--- OUTSIDE RECORDS SUMMARY | 2025-05-02 08:49 | XMS_ITS | CCD ---
Author Name Interface, [id number] lity Address [address] [place] [address] Organization [facility] H[facility]ology Address [address] [place] [address] [address] [place] [address] Care Team Providers Care Cna Hha Name Role Phone Misbah STEWART, Fuentes Unavailable [...] Active Deep vein thrombosis Active HTN Active half-way current use of anticoagulants Active Iron deficiency anemia (disorder) Active Hypotension Active Essential hypertension (disorder) Active Lymphedema (disorder) Active Social History Date Name Value 07/28/2019 Sex Female
--- OUTSIDE RECORDS SUMMARY | 2025-05-02 08:49 | XMS_ITS | Encounter Summary ---
Author Organization Healthcare Address [address] [place] [address] Care Team Providers Care Rn Corrections Name Role Phone Santosh Briones MD Primary Care Provider [phone] Abby Phillip APRN Primary Care Provider [phone] Encounter Details Date Type Department Care Team (Late st Contact Info) Description 09/09/2024 Orders Only External Location [address] [place] [address] Provider, External Social History Tobacco Use Types [...] filedocumented in this encounter Care Teams Rn Corrections Relationship Specialty Start Date End Date Santosh Briones MD [address] [place] [address] PCP - General 12/31/21 01/02/25 Abby Phillip APRN [address] [place] [address] PCP - General 01/03/25 documented as of this encounter
--- OUTSIDE RECORDS SUMMARY | 2025-05-02 08:49 | XMS_ITS | Encounter Summary ---
Author Organization [employer] ([place], [place], [place], [place], [place]) Address [address] [place] [address] Care Team Providers Care Dinkey Engine Operator Name Role Phone Santosh Briones MD Primary Care Provider [phone] Santosh Briones MD Primary Care Provider [phone] Julius Cho MD Unavailable Lew Ross MD Unavailable Karlos Pringle PA-C Unavailable [phone] Encounter Details Date Type Department Care Team (Late st Contact Info) Description 12/19/2020 Transcribed Document [facility] Family Medicine [facility] [place] [address] ProviderAle MD [address] [place] [address] Social History Tobacco Use Types Packs/Day Years Used Date Smoking Tobacco: Never Assessed Comments Unknown Sex and Gender Information Value Date Recorded Sex Assigned at Female 03/19/2022 10:49 AM MANAGER GAMES Legal Sex Female 5:46 PM CDT Gender Identity Female 03/19/2022 10:49 AM MANAGER GAMES Sexual Orientation Not on file documented as of this encounter Miscellaneous Notes * Cerner Conversion Note - Historical ProviderMD - 12/19/2020 3:48 PM CDT DATE OF PROCEDURE: 12/19/2020 1965 SURGEON: Massimo Blake DPM YARD ATTENDANT: None. PREOPERATIVE DIAGNOSES: Right Achilles tendon tear; [...] nylon 2-0, Vicryl 2-0, Arthrex anchors x4. [place] drain. Graft Info: We used a 2 [...] retracted as necessary. We then placed a [place] drain. We closed up the incision with [...] We will continue to follow this patient. /[id number] Keys YONG Weston/JALEEL / BMLizbet / MODL /[id number] documented in this encounter Plan of Treatment Not on file documented as of this encounter Visit Diagnoses Not on filedocumented in this encounter Care Teams Dinkey Engine Operator Relationship Specialty Start Date End Date Santosh Briones MD [address] [place], [place] [address] PCP - General General Internal Medicine 04/18/22 04/22/22 Santosh Briones MD [address] [place] [address] [place] [address] PCP - General General Internal Medicine 04/23/22 Julius Cho MD [address] [place] [address] Referring Physician Internal Medicine 04/23/22 Lew Ross MD [address] [facility] [address] [place] [address] Cardiology 08/13/23 Karlos Pringle PA-C [address] [facility] [place] [address] Cardiology 11/23/23 documented as of this encounter
--- OUTSIDE RECORDS SUMMARY | 2025-05-02 08:49 | XMS_ITS | Clinical Summary ---
Author Organization [facility] Address [address] [place] [address] Care Team Providers Care [facility] Attendant Name Role Phone Abby Phillip CRISTOFER Primary Care Provider [phone] Allergies Active Allergy Reactions Criticality Noted Date [...] abdomen 07/19/201801/16 Hernia of abdominal wall 07/09/2012 Immunizations Immunization Administration Dates Next Due Influenza, [...] Vaccine: 60+ Years or (1 - Risk 50-74 years 1-dose series) 2013 [facility]-Zoster Vaccines (2 of 2) 03/20/2023 01/23/2023 [id number] Vaccine ( season) 2025 10/29/2021, 02/01/2021, 05/23/2020, Additional history exists [facility]-Influenza Vaccine (#1) 2025 01/28/2024 [facility]-DTaP,Tdap,and Td Vaccines (2 - Td or Tdap) 07/17/2032 07/17/2022 [facility]-Pneumococcal Vaccine: 50+ Years Completed 01/28/2024 [facility]-Obesity Intervention Completed 01/16/2025 HPV Vaccines (No Doses Required) Completed [facility]-HIB Vaccines Aged Out No longer e [...] patient's age to complete this topic Insurance [facility] MEDICARE Care Teams Children[facility] Attendant Relationship Specialty Start Date End Date Abby Phillip APRN [address] [place] [address] PCP - General 01/03/25
--- OUTSIDE RECORDS SUMMARY | 2025-05-02 08:49 | XMS_ITS | Clinical Summary ---
Author Organization [facility] Address [address] [place] [address] Phone Care Team Providers Care Insulation Power Unit Tender Name Role Phone Chris Nunn MD [ ] Conditions or Problems Problem Name Problem Code Onset Date Status Entry Date Provider Comment Standard Description Annotate Hx of pulmonary embolism 132345110 (SNOMED CT) 08/25 Resolved 08/25 Natalia Herron H/O: pulmonary embolus Morbid obesity due to excess calories E66.01 (ICD-10-CM ) 08/25 Active 08/25 Natalia Herron Morbid (severe) obesity due to excess calories Benign Essential Hypertension 70256221 (SNOMED CT) 08/25 Active 08/25 Natalia Herron Benign hypertension Candidiasis of vulva and vagina, acute B37.31 (ICD-10-CM ) 09/20 Active 09/20 Natalia Herron Acute candidiasis of vulva and vagina Yeast infection 5168765 (SNOMED CT) 09/20 Inactive 09/20 Chris Nunn MD 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 (SNOMED CT) 08/25 Active 08/25 Dania Faulkner Systemic sclerosis Personal history of allergy Bactrim 114358652 (SNOMED CT) 08/25 Active 08/25 Dania Faulkner Allergy to antibacterial drug adapted physical education specialist current use of anticoagulan ts 150059864 (SNOMED CT) 08/25 Active 08/25 Dania Faulkner Drug therapy finding Hx of pulmonary embolism 646523946 (SNOMED CT) 08/25 Removed 08/25 Dania Faulkner H/O: pulmonary embolus Presence of left artificial ankle joint 226687566 (SNOMED CT) 08/25 Active 08/25 Dania Faulkner Prosthetic total arthroplasty of ankle Morbid obesity 827336634 (SNOMED CT) 08/25 Inactive 08/25 Dania Faulkner Morbid obesity CAD (coronary artery disease) 06827888 (SNOMED CT) 08/25 Active 08/25 Dania Faulkner Coronary arteriosclerosis Hypertension 32896455 (SNOMED CT) 08/25 Inactive 08/25 Dania Faulkner Hypertensive disorder Chronic ulcer of left ankle, skin layer only 839209842 (SNOMED CT) 08/25 Active 08/25 Dania Faulkner Chronic ulcer of ankle Cellulitis of left lower limb 240534413 (SNOMED CT) 08/20 Active 08/20 Dania Faulkner Cellulitis of leg, excluding foot Chronic osteomyeliti s, left ankle 579100043 (SNOMED CT) 08/20 Active 08/20 Dania Faulkner Chronic osteomyelitis of ankle and/or foot Medications Medication Instructions Start Date Stop Date Generic Name NDC Provider MINOCYCLINE HCL 100 MG TABS Take 1 tablet by mouth once a day minocycline 94536733174 Chris Nunn MD Diflucan 200 mg tablet 1 tablet by mouth once a day as needed for yeast infection fluconazole 29650107231 Chris Nunn MD DOXYCYCLINE HYCLATE 100 MG CAPS 1 capsule by mouth once a day doxycycline hyclate 40950622076 Chris Nunn MD FOLIC ACID 400 MCG TABS Take 2 tablet by mouth once a day folic acid 00013259621 Margaret Bermudez ACETAMINOPHEN 500 MG TABS Take 1 tablet by mouth every six hours as needed acetaminophen 85974351016 Margaret Bermudez NATURAL VITAMIN D-3 125 MCG (5000 UT) TABS Take 1 tablet by mouth once a day cholecalciferol (vitamin d3) 05296491782 Margaret Bermudez ASPIRIN LOW DOSE 81 MG TBEC Take 1 tablet by mouth once a day aspirin 58331845455 Margaret Bermudez FUROSEMIDE 40 MG TABS Take 1 tablet by mouth once a day furosemide 69427051017 Margaret Bermudez apixaban (Eliquis) 5 mg Tab tablet Take 1 tablet by mouth twice a day Eliquis Margaret Bermudez PANTOPRAZOLE SODIUM 40 MG TBEC Take 1 tablet by mouth once a day pantoprazole 99436953533 Margaret Bermudez VITAMIN B-12 1000 MCG TABS Take 1 tablet by mouth once a day cyanocobalamin (vitamin b-12) 39091651129 Margaret Bermudez SACCHAROMYCES BOULARDII 250 MG CAPS Take 1 capsule (250 mg total) by mouth 2 (two) times daily for 7 days. saccharomyces boulardii 19592059518 QIE qieuser PANTOPRAZOLE SODIUM 40 MG TBEC Take 1 tablet (40 mg total) by mouth daily. pantoprazole 48144016905 QIE qieuser FUROSEMIDE 40 MG TABS Take 1 tablet (40 mg total) by mouth daily. furosemide 21859329078 QIE qieuser FOLIC ACID 400 MCG TABS Take 2 tablets (800 mcg total) by mouth daily. folic acid 55091835847 QIE qieuser VITAMIN B-12 1000 MCG TABS Take 1 tablet (1,000 mcg total) by mouth daily. cyanocobalamin (vitamin b-12) 35220118055 QIE qieuser NATURAL VITAMIN D-3 125 MCG (5000 UT) TABS Take 1 tablet (5,000 Units total) by mouth daily. cholecalciferol (vitamin d3) 83578888349 QIE qieuser ASPIRIN LOW DOSE 81 MG TBEC Take 1 tablet (81 mg total) by mouth daily. aspirin 14176345674 QIE qieuser apixaban (Eliquis) 5 mg Tab [...] down for the next 30 min.. alendronate 01740140850 QIE qieuser ACETAMINOPHEN 500 MG TABS Take 1 tablet (500 mg total) by mouth every 6 (six) hours as needed for up to 10 days. acetaminophen 62196144922 QIE qieuser Cubicin RF 500 mg intravenous solution 500mg IV Q24hrs/ OPAT daptomycin 47561765815 Jasmin Proctro RN CEFTRIAXONE SODIUM 2 GM SOLR 2gm IV Q24hrs/ OPAT ceftriaxone 41933550199 Jasmin Proctor RN Medications Administered No information [...] Procedures Code Procedure Name Date Entry Date CPT-83247 CMP [id number] CBC with Differential 2023 CPT-86491 C- reactive protein CPT-38053 Sedimentation Rate (ESR) 202 08/10/07 CPT-coral Change [...]
--- OUTSIDE RECORDS SUMMARY | 2025-05-02 08:50 | XMS_ITS | Encounter Summary ---
Author Organization [employer] ([place], [place], [place], [place], [place]) Address [address] [place] [address] Care Team Providers Care Sourcing Specialist Name Role Phone Santosh Briones MD Primary Care Provider [phone] Santosh Briones MD Primary Care Provider [phone] Julius Cho MD Unavailable Lew Ross MD Unavailable Karlos Pringle PA-C Unavailable [phone] Encounter Details Date Type Department Care Team (Late st Contact Info) Description 12/19/2020 Transcribed Document [facility] [place] [facility] [address] ProviderAle MD [address] [place] [address] Social History Tobacco Use Types Packs/Day Years Used Date Smoking Tobacco: Never Assessed Comments Unknown Sex and Gender Information Value Date Recorded Sex Assigned at Female 03/19/2022 10:49 AM SATELLITE COMMUNICATIONS OPERATOR Legal Sex Female 5:46 PM CDT Gender Identity Female 03/19/2022 10:49 AM SATELLITE COMMUNICATIONS OPERATOR Sexual Orientation Not on file documented [...] activities are safe for you. ??? Take iryd-ftg-gxisdtn and prescription medicines only as told by [...] provider. Document Revised: 04/23/2018 Document Reviewed: 12/04/2017 [employer] Patient Education ? 2020 [employer] documented in this encounter Plan of Treatment Not on file documented as of this encounter Visit Diagnoses Not on filedocumented in this encounter Care Teams Sourcing Specialist Relationship Specialty Start Date End Date Santosh Briones MD [address] [place] [address] [place] [address] PCP - General General Internal Medicine 04/18/22 04/22/22 Santosh Briones MD [address] [place] [address] PCP - General General Internal Medicine 04/23/22 Julius Cho MD [address] [place] [address] Referring Physician Internal Medicine 04/23/22 Lew Ross MD [address] [facility] [address] [place] [address] Cardiology 08/13/23 Karlos Pringle PA-C [address] [facility] [address] [place] [address] Cardiology 11/23/23 documented as of this encounter
--- OUTSIDE RECORDS SUMMARY | 2025-05-02 08:50 | XMS_ITS | Encounter Summary ---
Author Organization Healthcare Address [address] [place] [address] Care Team Providers Care Plant Buyer Name Role Phone Santosh Briones MD Primary Care Provider [phone] Abby Phillip APRN Primary Care Provider [phone] Encounter Details Date Type Department Care Team (Late st Contact Info) Description 09/09/2024 Orders Only External Location [address] [place] [address] Provider, External Social History Tobacco Use Types [...] on filedocumented in this encounter Care Teams Plant Buyer Relationship Specialty Start Date End Date Santosh Briones MD [address] [place] [address] PCP - General 12/31/21 01/02/25 Abby Phillip APRN [address] [place] [address] PCP - General 01/03/25 documented as of this encounter
--- OUTSIDE RECORDS SUMMARY | 2025-05-02 08:50 | XMS_ITS | Encounter Summary ---
Author Organization [employer] ([place], [place], [place], [place], [place]) Address [address] [place] [address] Care Team Providers Care Outdoor Adventure Leader Name Role Phone Santosh Briones MD Primary Care Provider [phone] Santosh Briones MD Primary Care Provider [phone] Julius Cho MD Unavailable Lew Ross MD Unavailable Karlos Pringle PA-C Unavailable [phone] Encounter Details Date Type Department Care Team (Late st Contact Info) Description 12/19/2020 Transcribed Document [facility] [place] [address] ProviderAle MD [address] [place] [address] Social History Tobacco Use Types Packs/Day Years Used Date Smoking Tobacco: Never Assessed Comments Unknown Sex and Gender Information Value Date Recorded Sex Assigned at Female 03/19/2022 10:49 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 Name: JANIS FIGUEREDO BILLIE Sands/Sex: 1965 Female Med Rec #: [id number] Physician: MEE TUCKER, DPM-POD Financial #: [id number] Pt. Type: O Room/Bed: /9 Admit/Disch: 12/19/20 06:32:00 - 12/19/20 12:11:00 Institution: [facility] IntraOp Case Attendance Entry 1 Entry 2 Entry 3 Case Attendee MEE TUCKER BOWEN, JON B, MD-YVETTE ROSEN APRN DPM-POD Role Performed Surgeon/Proceduralist, Anesthesiologist of MASTER STEAM YACHT/Nurse Pharmacy Data Analyst First Record Time In 12/19/20 07:55:00 12/19/20 [...] Rn Poe, Kali, RN Baker, Amanda S, Special Needs Caregiver Role Performed Pc Support Specialist, First Pc Support Specialist, Second Scrub, First Time In 12/19/20 [...] Case Attendee ROBERTO BELCHER RN Role Performed Pc Support Specialist, First Time In 12/19/20 09:45:00 Time Out 12/19/20 10:03:00 Procedure Achilles Tendon Repair(Right), Bone Spur Excision Other Attendee BREAK Superficial Wound Closed By: Last Modified By: Julienne Atkins Rn 12/19/20 10:28:51 [facility] IntraOp Case Attendance Audit 12/19/20 10:28:51 Boat Garnisher: [id number] Modifier: [id number] 1 <+> Time Out 1 <*> Procedure [...] Tendon Repair(Right), Bone Spur Excision 12/19/20 10:03:51 Boat Garnisher: [id number] Modifier: [id number] <+> Time Out 7 <*> Procedure Achilles Tendon Repair(Right), Bone Spur Excision 12/19/20 09:47:32 Boat Garnisher: [id number] Modifier: [id number] 1 <*> Procedure Achilles Tendon Repair(Right), Bone [...] Procedure <+> 7 Other Attendee 12/19/20 07:58:46 Boat Garnisher: [id number] Modifier: [id number] <+> 6 Procedure [facility] IntraOp Case Times Entry 1 Patient In Room Time 12/19/20 07:55:00 Out Room Time 12/19/20 10:23:00 Anesthesia Start Time 12/19/20 07:55:00 Stop Time 12/19/20 10:23:00 Surgery / Procedure Times Start Time 12/19/20 08:35:00 Stop Time 12/19/20 10:16:00 Last Modified By: Julienne Atkins Rn 12/19/20 10:28:41 [facility] IntraOp Case Times Audit 12/19/20 10:28:41 Boat Garnisher: [id number] Modifier: [id number] <+> 1 Out Room Time <+> 1 Stop Time <+> 1 Stop Time 12/19/20 08:37:30 Boat Garnisher: [id number] Modifier: [id number] <+> 1 Start Time [facility] IntraOp Cautery Entry 1 ESU Identification Cautery Type Monopolar ESU ID Number [id number] ID Type Hospital Number Cautery Settings Cut [...] Modified By: Julienne Atkins Rn 12/19/20 07:59:56 [facility] IntraOp Communication Entry 1 Communication To Family/Significant other Communication By Domingo Conklin RN Date and Time 12/19/20 08:37:00 Last Modified By: Julienne Atkins Rn 12/19/20 08:37:40 [facility] IntraOp Counts Verification Entry 1 Procedure Achilles Tendon Repair(Right), Bone Spur Excision Count Info Count Type Sponge, Sharps Counts Verification Baseline/pre-procedure Sequence Count Results Not Applicable Counts Performed By Count Performed By Letitia Washington (Scrub) Special Needs Caregiver Count Performed By Domingo Conklin RN (RN) Last Modified By: Julienne Atkins Rn 12/19/20 08:00:18 [facility] IntraOp Counts Final Entry 1 Procedure Achilles Tendon Repair(Right), Bone Spur Excision Final Count Info Count Type Sponge, Sharps Counts Verification Skin Closure/end of Sequence procedure Count Results Correct, surgeon notified Counts Performed By Count Performed By Letitia Washington (Scrub) Special Needs Caregiver Count Performed By Julienne Atkins Rn (RN) Last Modified By: Julienne Atkins Rn 12/19/20 10:05:43 [facility] IntraOp Cultures and Spec Summary Entry 1 Cultrures and Specimens Specimen Ordered: Yes Test(s) Routine/Path-Lab Requested/Final Disposition Last Modified By: Julienne Atkins Rn 12/19/20 09:32:55 General Comments: A. RIGHT FOOT BONE [facility] IntraOp Delays Entry 1 Delay Reason Patient, other (document in comment) Duration 25 Minute(s) Comment PATIENT GETTING NERVE BLOCK Last Modified By: Julienne Atkins Rn 12/19/20 08:00:49 [facility] IntraOp Departure from OR Entry 1 Integumentary Assessment Integumentary WDL Assessment WDL Transfer/Handoff Transfer to PACU Phase I Handoff Method Bedside/Face to face, Phone call Post-op Transport Stretcher/Gurney Via Patient Transport YVETTE CEJA, Accompanied by Wilbert CLEVELAND Tracy R, Viri, Domingo Conklin RN Last Modified By: Julienne Atkins Rn 12/19/20 08:01:04 [facility] IntraOp Drains and Tubes Entry 1 Device Type Sylvester Size 1/4 Drain/Tube Activity Inserted Drain/Tube Suction Leisenring Drain/Tube Drainage Red Device Location RIGHT LOWER LEG Method of Drainage Leisenring Last Modified By: Julienne Atkins Rn 12/19/20 08:49:09 [facility] IntraOp Dressing and Packing Entry 1 Type Dressing Location RIGHT FOOT Wound Dressing Item 4x4's, Kerlix/Janie, Johnnie, Other Applied By MEE TUCKER, DPM-POD Other Comments SILVER DRESSING Last Modified By: Julienne Atkins Rn 12/19/20 10:05:02 [facility] IntraOp Dressing and Packing Audit 12/19/20 10:05:02 Boat Garnisher: [id number] Modifier: [id number] 1 <*> Wound Dressing Item 4x4's, Kerlix/Janie, Johnnie 1 <+> Applied By 1 <*> Other Comments ACTICOAT [facility] IntraOp Fire Risk Assessment Entry [...] Modified By: Julienne Atkins Rn 12/19/20 08:01:48 [facility] IntraOp General Case Swahili Teacher 1 Case Information OR OR 02 [facility] Case Level 1 Room Verified Yes Wound Class I - Clean Specialty Podiatry Anesthesia Type General ASA Class 3 Diagnosis Preop Diagnosis RIGHT ACHILLES INJURY Postop Same As Preop No Postop Diagnosis SEE MD NOTES Last Modified By: Julienne Atkins Rn 12/19/20 08:02:15 [facility] IntraOp Implant Log Entry 1 Entry 2 Entry 3 Type Tissue Implant Implant (Synthetic) Implant (Synthetic) (Biologic) Implant Log Implant Type Hardware Hardware Tissue Implant Type Tissue Implant IMP STRAVIX [id number] ARTHREX ANCHOR KT IB PLUS BC W/CC FT Identification [id number] Description Implant Quantity 1 2 1 Implant Site RIGHT ANKLE RIGHT FOOT RIGHT FOOT Implant Identification Model Number Implant [id number] Identification Serial Number Implant [id number] Identification Lot Number Implant [employer] ARTHREX Arthrex Identification Educational Psychology Professor Name: Implant [id number] Identification Catalog Number Implant Size Implant Has an Yes Yes Yes Expiration Date Implant Expiration 04/13/23 08/01/22 07/01/22 Date Wasted Radioactive Material Time Implanted Tissue Implant Continue for Tissue Implant Documentation Tissue Identification Number Graft Prep Per Yes Educational Psychology Professor Instructions: Tissue Preparation N/A Method: Reconstitution Solution: Reconstitution Solution Lot Number Reconstitution Solution Expiration Date: Thawing Solution Thawing Solution Lot Number Thawing Solution Expiration Date Preparation Materials, Other Preparation Materials, Other Lot Number Preparation Materials, Other Expiration Date MEE Ash, Prepared/Processed DPM-POD By Educational Psychology Professor Yes Paperwork Completed Implant Type Comment Last Modified By: Julienne Atkins Rn Compton, Tracy R, Rn Compton, Tracy R, Rn 12/19/20 09:32:32 12/19/20 09:32:32 12/19/20 09:32:32 Entry 4 Type Implant (Synthetic) Implant Log Implant Type Tissue Implant Type Implant ARTHREX SUTURE TAPE REF Identification [id number] Description Implant Quantity 1 Implant Site OPSITE Implant Identification Model Number Implant Identification Serial Number Implant [id number] Identification Lot Number Implant Identification Educational Psychology Professor Name: Implant Identification Catalog Number Implant Size Implant Has an Yes Expiration Date Implant Expiration 08/31/25 Date Wasted Radioactive Material Time Implanted Tissue Implant Continue for Tissue Implant Documentation Tissue Identification Number Graft Prep Per Educational Psychology Professor Instructions: Tissue Preparation Method: Reconstitution Solution: Reconstitution Solution Lot Number Reconstitution Solution Expiration Date: Thawing Solution Thawing Solution Lot Number Thawing Solution Expiration Date Preparation Materials, Other Preparation Materials, Other Lot Number Preparation Materials, Other Expiration Date Tissue Prepared/Processed By Educational Psychology Professor Paperwork Completed Implant Type Comment Last Modified By: Julienne Atkins Rn 12/19/20 10:03:35 [facility] IntraOp Implant Log Audit 12/19/20 10:03:35 Boat Garnisher: [id number] Modifier: [id number] <+> 4 Implant Identification Description <+> 4 Implant Identification Lot Number <+> 4 Implant Expiration Date <+> 4 Implant Site <+> 4 Implant Quantity <+> 4 Implant Has an Expiration Date <+> 4 Type [facility] IntraOp Intraoperative Assessment Entry 1 [...] Modified By: Julienne Atkins Rn 12/19/20 08:03:12 [facility] IntraOp Intraoperative Equipment Entry 1 Type Equipment Equipment Equipment Yumi Suction System ID Number [id number] Setting ON Intraop Monitoring Blood Pressure Non-Invasive BP Device Source Antiembolic Devices Scopes Photo/Video Documentation Last Modified By: Julienne Atkins Rn 12/19/20 08:03:54 [facility] IntraOp Medication Admin Entry 1 Medication/Irrigant LAILA IRR NACL 0.9PCT 2000ML [id number] Time Administered 12/19/20 08:35:00 Route of IRRIGATION Administration Dose Administered By MEE TUCKER, SHAHRAMM-POD Procedure Irrigation Last Modified By: Julienne Atkins Rn 12/19/20 09:04:22 [facility] IntraOp Medication Admin Audit 12/19/20 09:04:22 Boat Garnisher: [id number] Modifier: [id number] 1 <*> Medication/Irrigant LAILA IRR NACL 0.9PCT 2000ML [id number] 1 <+> Time Administered [facility] IntraOp Patient Positioning Entry 1 [...] Modified By: Julienne Atkins Rn 12/19/20 08:05:17 [facility] IntraOp Sign In Entry 1 [...] Modified By: Julienne Atkins Rn 12/19/20 08:05:29 [facility] IntraOp Sign Out Entry 1 [...] Modified By: Julienne Atkins Rn 12/19/20 10:28:48 [facility] IntraOp Sign Out Audit 12/19/20 10:28:48 Boat Garnisher: [id number] Modifier: [id number] <+> 1 RN Sign Out Signature Date/Time [facility] IntraOp Skin Prep Entry 1 Procedure Achilles Tendon Repair(Right), Bone Spur Excision Prescribed Yes Pre-Surgical Prep Completed Prep Area RIGHT FOOT AND LOWER LEG TO KNEE Intraop Prep Integumentary WDL Assessment WDL Prep Agents Chloraprep Prep by Julienne Atkins Rn Hair Removal Methods No hair removal performed Last Modified By: Julienne Atkins Rn 12/19/20 08:08:22 [facility] IntraOp Surgical Procedures Entry 1 [...] Tracy R, Rn 12/19/20 10:28:50 12/19/20 10:28:50 [facility] IntraOp Surgical Procedures Audit 12/19/20 10:28:50 Boat Garnisher: [id number] Modifier: [id number] <+> 1 Stop <+> 2 Stop [facility] IntraOp Temp Regulation Devices Entry 1 Temp Regulation Temperature Forced Air Warming Regulation Device device, Warm blankets Temperature [id number] Regulation Device Serial/Unit Number Temperature Upper body Regulation Site Temperature Device on Setting Temperature YVETTE CEJA APRN Regulation Device Applied by Last Modified By: Julienne Atkins Rn 12/19/20 08:39:43 [facility] IntraOP Time Out Entry 1 [...] Modified By: Julienne Atkins Rn 12/19/20 08:38:12 [facility] IntraOp Tourniquet Entry 1 Type Pneumatic Serial/Unit Number [id number] Setting 300 mmHg Pheumatic Yes Tourniquet Checked Per Protocol Placement Thigh, right upper Skin Protection - Yes Padded Under Cuff Applied By Julienne Atkins Rn Removed By MEE TUCKER DPM-POD Times Start Time 12/19/20 08:34:00 Stop Time 12/19/20 10:15:00 Total Time 101 calculated manually (Mins) Last Modified By: Julienne Atkins Rn 12/19/20 10:16:00 [facility] IntraOp Tourniquet Audit 12/19/20 10:16:00 Boat Garnisher: [id number] Modifier: [id number] <+> 1 Total Time calculated manually (Mins) [...] on filedocumented in this encounter Care Teams Outdoor Adventure Leader Relationship Specialty Start Date End Date Santosh Briones MD [address] [facility] [address] [place], [place] [id number] PCP - General General Internal Medicine 04/18/22 04/22/22 Santosh Briones MD [address] [facility] [address] [place], [place] [id number] PCP - General General Internal Medicine 04/23/22 Julius Cho MD [address] [place] [address] Referring Physician Internal Medicine 04/23/22 Lew Ross MD [address] [facility] [address] [place] [address] Cardiology 08/13/23 Karlos Pringle PA-C [address] [facility] [place] [address] Cardiology 11/23/23 documented as of this encounter
--- OUTSIDE RECORDS SUMMARY | 2025-05-02 08:50 | XMS_ITS | Encounter Summary ---
Author Organization [employer] ([place], [place], [place], [place], [place]) Address [address] [place] [address] Care Team Providers Care Converting Operator Name Role Phone Santosh Briones MD Primary Care Provider [phone] Santosh Briones MD Primary Care Provider [phone] Julius Cho MD Unavailable Lew Ross MD Unavailable Karlos Pringle PA-C Unavailable [phone] Encounter Details Date Type Department Care Team (Late st Contact Info) Description 12/19/2020 Transcribed Document [facility] [place] Family [place] [facility] [place] [address] ProviderAle MD [address] [place] [address] Social History Tobacco Use Types Packs/Day Years Used Date Smoking Tobacco: Never Assessed Comments Unknown Sex and Gender Information Value Date Recorded Sex Assigned at Female 03/19/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 Name: JANIS FIGUEREDO BILLIE DumontO.B./Sex: 1965 Female Med Rec #: [id number] Physician: MEE TUCKER DPM-POD Financial #: [id number] Pt. Type: O Room/Bed: /9 Admit/Disch: 12/19/20 06:32:00 - 12/19/20 12:11:00 Institution: [facility] Main OR PACU I Case Times Entry 1 In PACU I 12/19/20 10:25:00 Ready for PACU 12/19/20 11:05:00 Discharge Discharge from PACU 12/19/20 11:08:00 I Last Modified By: Sunshine Rowland RN-PATIENT CARE BEDSIDE NON-EXEMPT 12/19/20 11:55:39 [facility] Main OR PACU Acuity Entry 1 Start Time 12/19/20 11:05:00 Stop Time 12/19/20 11:08:00 Acuity Level [facility] PACU Acuity I Last Modified By: Letitia Dugan, Nurse Supervisor Pre Wave 12/21/20 20:53:32 [facility] Main OR PACU Acuity Audit 12/21/20 20:53:32 Collision Repairer: [id number] Modifier: [id number] <*> Start Time 12/19/20 10:25:00 Finalized By: Letitia Dugan, Nurse Beauty Parlor Cleaner Signatures Signed By: Sunshine Rowland RN-PATIENT CARE BEDSIDE NON-EXEMPT 12/19/20 11:55 Letitia Dugan, Nurse Supervisor Pre Wave 12/21/20 20:53 Unfinalized History Date/Time Username Reason for Unfinalizing Freetext Reason for Unfinalizing 12/21/20 20:53 [id number] Correct Billing Electronically signed by Everardo [facility] Conversion Support Service Tech Cerner at 08/22/2022 3:52 PM CDT documented in this encounter Plan of Treatment Not on file documented as of this encounter Visit Diagnoses Not on filedocumented in this encounter Care Teams Converting Operator Relationship Specialty Start Date End Date Santosh Briones MD [address] [place] [address] [place] [address] PCP - General General Internal Medicine 04/18/22 04/22/22 Santosh Briones MD [address] [facility] [place] [address] [place] [address] PCP - General General Internal Medicine 04/23/22 Julius Cho MD [address] [place] [address] Referring Physician Internal Medicine 04/23/22 Lew Ross MD [address] [facility] [address] [place] [address] Cardiology 08/13/23 Karlos Pringle PA-C [address] [place] [address] Cardiology 11/23/23 documented as of this encounter
--- OUTSIDE RECORDS SUMMARY | 2025-05-02 08:50 | XMS_ITS | Patient Health Record ---
Author Organization [facility]um[facility] borja Billing Info Address [address] [place] [address] Phone [phone] Care Team Providers Care Semiconductor Wafers Tester Name Role Phone NI SANTOS Primary Care Provider Unavailabl e Allergies Allergen (clinical drug ingredient) Drug/Non Drug Allergy documented on EMR Reaction Allergy Type Onset Date Status sulfamethoxazole / trimethoprim Bactrim Unknown Drug Allergy Active morphine Morphine Unknown Drug Allergy Active Reason For Referral No Information Medications Medication SIG (Take, Route, Frequency, Duration) Notes Start Date End Date Diagnosis (ICD Code) Status Carvedilol 12.5 MG Tablet 1 tablet with food Orally Twice a day; Duration: 30 day(s) 01/27/2022 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) Active Zetia 10 MG Tablet 1 tablet Orally Once a day; Duration: 30 day(s) 03/10/2022 Hyperlipidemia (ICD_10 - E78.5) Active Atorvastatin Calcium 80 MG Tablet TAKE ONE TABLET BY MOUTH DAILY; Duration: 30 Active Furosemide 40 MG Tablet 1 tablet Orally Once a day; Duration: 30 day(s) Active Lisinopril 20 MG Tablet 1 tablet Orally Once a day; Duration: 30 day(s) Active Eliquis 5 MG Tablet Oral; Duration: 30 Active Gabapentin 300 MG Capsule 1 capsule Orally Once a day; Duration: 30 day(s) Active Ibuprofen 600 MG Tablet 1 tablet with food or milk as needed Orally Three times a day Active B12 5000 MCG Tablet Sublingual as directed Sublingual Active Pantoprazole Sodium 20 MG Tablet Delayed Release 1 tablet Orally Once a day; Duration: 30 day(s) Active Social History Tobacco Use: Social History Observation Description Date Details (start date - stop date) Never Smoker NA - NA Sex Observation Social History Observation Description Sex Observation Female Social History Social History Social Info Question Answer Notes Tobacco Status: Patient is a never smoker Illicit Drug Use: Patient/Family reports: No illicit d rug use Alcohol Use: Patient does not use alcohol *DO NOT USE * Tobacco Status (CQW): Patient is Never smoker Plan Of Treatment No Information Insurance Providers Payer Name Payer Address Payer Phone Subscriber Number Group Number Insured Name Patient Relationship to Insured Coverage Start Date Coverage End Date [employer] OAP/[id number] [address] [place], [place] [id number] Janis Lorenzana Self - patient is the [...] caval filter placement Hospitalization History Reason Date(Month/Year) [facility] [place]
--- OUTSIDE RECORDS SUMMARY | 2025-05-02 08:50 | XMS_ITS | Encounter Summary ---
Author Organization [employer] ([place], [place], [place], [place], [place]) Address [address] [place] [address] Care Team Providers Care Insulation Installer Name Role Phone Santosh Briones MD Primary Care Provider [phone] Santosh Briones MD Primary Care Provider [phone] Julius Cho MD Unavailable Lew Ross MD Unavailable Karlos Pringle PA-C Unavailable [phone] Encounter Details Date Type Department Care Team (Late st Contact Info) Description 12/14/2020 Transcribed Document [facility] [place] Family [place] [facility] [place] [address] ProviderAle MD [address] [place] [address] Social History Tobacco Use Types Packs/Day Years Used Date Smoking Tobacco: Never Assessed Comments Unknown Sex and Gender Information Value Date Recorded Sex Assigned at Female 03/19/2022 10:49 AM 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 Legal Sex Female 5:46 PM CDT Gender Identity Female 03/19/2022 10:49 AM 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 Sexual Orientation Not on file documented [...] Source : Measured Height Entry Format : [place] Height, Feet : 5 ft(Converted to: 152 cm, 60 Inch) Height, Inches : 7 Inch(Converted to: 0 ft 7 Inch, 17.78 cm) Clinical Height : 170.18 cm Weight Source : Standing scale Weight Entry Format : [place] Clinical Dosing Weight : 116.82 kg Weight, Pounds : 257 lb Body Surface Area (BSA) : 2.25 m2 Body Mass Index : 40.3 kg/m2 (>HHI) [place] Body Weight : 61 kg PETROS HERNDON RN - 12/17/2020 10:31 EDT Health Histories Smoking Status : Never (less than 100 in lifetime; none in last 30 days) Smokeless Tobacco Status : Never Implant/Device Type, Certified Composites Technician and Model : breast implants IVC filter [...] Tru Barkley Rn - 12/14/2020 10:55 EDT [place] Suicide Severity Rating Scale (C-SSRS) CSSRS Past [...] Info Legal Guardian : Spouse Support Person/Patient Freight Handler : Yes Support Person/Pt Rep Name : Jose Ramon Lorenzana - Support Person/Pt Rep Contact Information : [phone] Want Family/Rep/Phys Notified of Admit : Tru De La Fuente Rn - 12/14/2020 10:55 EDT Emergency Contact #1 : Jose Ramon Lorenzana Emergency Contact #1 Emergency Contact #1 Relationship : Pérez GilViri - 12/19/2020 6:14 EDT Emergency Contact #2 : ` Emergency Contact #2 Phone Number : ` Emergency Contact #2 Relationship : ` Information Obtained From : Patient Primary Language : Vincentian Communication Barrier : None Dictaphone Technician Needed : No Tru Barkley Rn - [...] on filedocumented in this encounter Care Teams Insulation Installer Relationship Specialty Start Date End Date Santosh Briones MD [address] [facility] [address] [place], [place] [id number] PCP - General General Internal Medicine 04/18/22 04/22/22 Santosh Briones MD [address] [place], [place] [id number] PCP - General General Internal Medicine 04/23/22 Julius Cho MD [address] [address] Referring Physician Internal Medicine 04/23/22 Lew Ross MD [address] [facility] [address] [place] [address] Cardiology 08/13/23 Karlos Pringle PA-C [address] [facility] [address] [place] [address] Cardiology 11/23/23 documented as of this encounter
--- OUTSIDE RECORDS SUMMARY | 2025-05-02 08:50 | XMS_ITS | Encounter Summary ---
Author Organization [employer] ([place], [place], [place], [place], [place]) Address [address] [place] [address] Care Team Providers Care Mold Filling Operator Name Role Phone Santosh Briones MD Primary Care Provider [phone] Santosh Briones MD Primary Care Provider [phone] Julius Cho MD Unavailable Lew Ross MD Unavailable Karlos Pringle PA-C Unavailable [phone] Encounter Details Date Type Department Care Team (Late st Contact Info) Description 12/19/2020 Transcribed Document [facility] [place] Family Medicine [facility] [address] ProviderAle MD [address] [place] [address] Social History Tobacco Use Types Packs/Day Years Used Date Smoking Tobacco: Never Assessed Comments Unknown Sex and Gender Information Value Date Recorded Sex Assigned at Female 03/19/2022 10:49 AM CHANGE CONTROL ANALYST Legal Sex Female 5:46 PM CDT Gender Identity Female 03/19/2022 10:49 AM CHANGE CONTROL ANALYST Sexual Orientation Not on file documented as of this encounter Miscellaneous Notes * Cerner Conversion Note - Ale Johnson MD - 12/19/2020 8:35 AM CDT [facility] Main OR PostOp Summary Primary Physician: MEE TUCKER, DPM-POD Finalized Date/Time: 12/19/20 12:16:40 Pt. Name: JANIS FIGUEREDO BILLIE DumontO.B./Sex: 1965 Female Med Rec #: [id number] Physician: MEE TUCKER DPM-POD Financial #: [id number] Pt. Type: O Room/Bed: /9 Admit/Disch: 12/19/20 06:32:00 - Institution: [facility] Main OR PostOp Case Times Entry 1 In PACU II 12/19/20 11:10:00 Ready for PACU II 12/19/20 12:11:00 Discharge Discharge from PACU 12/19/20 12:11:00 II Last Modified By: SIOMARA ALLEN RN 12/19/20 12:16:39 [facility] Main OR PostOp Case Times Audit 12/19/20 12:16:39 Vegetable Sorter: [id number] Modifier: [id number] <+> 1 Ready for PACU II Discharge <+> 1 Discharge from PACU II Finalized By: SIOMARA ALLEN RN Document Signatures Signed By: SIOMARA ALLEN RN 12/19/20 12:16 Electronically signed by [facility] Conversion Earth Science Professor Cerner at 08/22/2022 3:51 PM CDT documented in this encounter Plan of Treatment Not on file documented as of this encounter Visit Diagnoses Not on filedocumented in this encounter Care Teams Mold Filling Operator Relationship Specialty Start Date End Date Santosh Briones MD [address] [place] [address] PCP - General General Internal Medicine 04/18/22 04/22/22 Santosh Briones MD [address] [place] [address] [place] [address] PCP - General General Internal Medicine 04/23/22 Julius Cho MD [address] [address] Referring Physician Internal Medicine 04/23/22 Lew Ross MD [address] [place] [address] [address] [place], [place] [id number] Cardiology 08/13/23 Karlos Pringle PA-C [address] [place] [address] Rd, [facility] [address] [place] [address] Cardiology 11/23/23 documented as of this encounter
--- OUTSIDE RECORDS SUMMARY | 2025-05-02 08:50 | XMS_ITS | Referral Summary ---
Author Organization [employer] ([place], [place], [place], [place], [place]) Address [address] [place] [address] Care Team Providers Care County Court Judge Name Role Phone Santosh rBiones MD Primary Care Provider Julius Cho MD Unavailable Lew Ross MD Unavailable Karlos Pringle PA-C Unavailable [phone] Encounters Date Type Department Care Team Description 02/16/2025 Telephone [facility] Cardiology [address] [place] [address] Lesly Sanchez APRN Cardiac Clearance from Last 3 Months Allergies Active Allergy [...] Do you speak a language other than Hungarian at [facility]? [...] Sex Assigned at Female 03/19/2022 10:49 AM PRODUCT SAFETY ADMINISTRATOR Legal Sex Female 5:46 PM CDT Gender Identity Female 03/19/2022 10:49 AM PRODUCT SAFETY ADMINISTRATOR Sexual Orientation Not on file Last Filed [...] 12/30/2024 9:27 AM EDT Plan of Treatment Not on file Medical Devices Implanted Type Area Patternmaker Apprentice Metal Device Identifier Shelf Expiration Date Model / Serial / Lot Base Tib 18mm [id number] - [id number] Implanted:Qty : 1 on 04/23/2022 by Massimo Blake DPM at [facility] IMPLANTS Left: Ankle ARIAS MED GRP:ARIAS MED TECH 03/13/[id number] / / [id number] Stem Mid Tib 16mm [id number] - [id number] Implanted:Qty : 2 on 04/23/2022 by Massimo Blake DPM at [facility] IMPLANTS Left: Ankle ARIAS MED GRP:ARIAS MED TECH 03/10/2030 / / [id number] Stem Top Tib 16mm [id number] - [id number] Implanted:Qty : 1 on 04/23/2022 by Massimo Blake DPM at [facility] IMPLANTS Left: Ankle ARIAS MED GRP:ARIAS MED TECH 05/20/[id number] / / [id number] Cement Bone Smplx Tobra [facility] 6197-9-001 - [id number] Implanted:Qty : 3 on 04/23/2022 by Massimo Blake DPM at [facility] IMPLANTS Left: Ankle GISUEPPE:GIUSEPPE ORTHOPAEDICS 08/02/2023 6197-9-001 / / [id number] Tray Tib Sz4 L [id number] - [id number] Implanted:Qty : 1 on 04/23/2022 by Massimo Blake, DPM at [facility] IMPLANTS Left: Ankle ARIAS MED GRP:ARIAS MED TECH 02/20/[id number] / / [id number] Dome Inbone Talar Sulcus Sz 3 - [id number] Implanted:Qty : 1 on 04/23/2022 by Massimo Blake, DPM at [facility] IMPLANTS Left: Ankle ARIAS MED GRP:ARIAS MED TECH 10/31/2028 / / [id number] Insrt Crosslnk Poly Sz3 [id number] - [id number] Implanted:Qty : 1 on 04/23/2022 by Massimo Blake, DPM at [facility] IMPLANTS Left: Ankle ARIAS MED GRP:ARIAS MED TECH 02/17/203084912240 / / [id number] Stem Talar 10mm [id number] - [id number] Implanted:Qty : 1 on 04/23/2022 by Massimo Blake, DPM at [facility] IMPLANTS Left: Ankle ARIAS MED GRP:ARIAS MED TECH 02/16/[id number] / / [id number] Bone Putty Stimulan [facility] 620-005 - [id number] Implanted:Qty : 1 on 08/18/2023 by Massimo Blake, DPM at [facility] IMPLANTS Left: Ankle BIOCOMPOSITES 03/03/2026 620-005 / / [id number] Insurance [facility] MEDICARE ADVANTAGE Advance Directives For more information, please contact: [phone] * Full Code (Latest Code Status on [...] 5:35 PM 08/18/2023 5:[address] Teams [address] Judge Relationship Specialty Start Date End Date Santosh Briones MD [address] [facility] [address] [place] [id number] PCP - General General Internal Medicine 04/23/22 Julius Cho MD [address] [place] [address] Referring Physician Internal Medicine 04/23/22 Lew Ross MD [address] [facility] [address] [place] [address] Cardiology 08/13/23 Karlos Pringle PA-C [address] [facility] [place] [address] Cardiology 11/23/23
--- OUTSIDE RECORDS SUMMARY | 2025-05-02 08:50 | XMS_ITS | Encounter Summary ---
Author Organization [employer] ([place], [place], [place], [place], [place]) Address [address] [place] [address] Care Team Providers Care Occupational Therapy Co Director Name Role Phone Santosh Briones MD Primary Care Provider [phone] Santosh Briones MD Primary Care Provider [phone] Julius Cho MD Unavailable Lew Ross MD Unavailable Karlos Pringle PA-C Unavailable [phone] Encounter Details Date Type Department Care Team (Late st Contact Info) Description 12/19/2020 Transcribed Document [facility] [place] [facility] [place] [address] ProviderAle MD [address] [place] [address] Social History Tobacco Use Types Packs/Day Years Used Date Smoking Tobacco: Never Assessed Comments Unknown Sex and Gender Information Value Date Recorded Sex Assigned at Female 03/19/2022 10:49 AM PLANER OPERATOR Legal Sex Female 5:46 PM CDT Gender Identity Female 03/19/2022 10:49 AM PLANER OPERATOR Sexual Orientation Not on file documented as of this encounter Miscellaneous Notes * Cerner Conversion Note - Ale ProviderMD - 12/19/2020 7:30 AM CDT [facility] Main OR Preop Summary Primary Physician: MEE TUCKER, DPM-POD Finalized Date/Time: 12/19/20 07:52:13 Pt. Name: JANIS FIGUEREDO BILLIE Swan/Sex: 1965 Female Med Rec #: [id number] Physician: MEE TUCKER DPM-POD Financial #: [id number] Pt. Type: O Room/Bed: /9 Admit/Disch: 12/19/20 06:32:00 - Institution: [facility] PreOp Case Times Entry 1 In Preop 12/19/20 05:50:00 Ready for Holding n/a Room Patient Ready for 12/19/20 07:48:00 Surgery Patient Out of Preop 12/19/20 07:52:00 Patient Out of n/a Holding Room Last Modified By: Pérez Gil Rn 12/19/20 07:52:11 [facility] PreOp Case Times Audit 12/19/20 07:52:11 Pediatric Anesthesiologist: [id number] Modifier: [id number] <+> 1 Patient Out of Preop <+> 1 Patient Ready for Surgery Finalized By: Pérez Gil, Rn Document Signatures Signed By: Pérez Gil Rn 12/19/20 07:52 Electronically signed by [facility] Conversion Electrical Project Engineer Cerner at 08/22/2022 3:49 PM CDT documented in this encounter Plan of Treatment Not on file documented as of this encounter Visit Diagnoses Not on filedocumented in this encounter Care Teams Occupational Therapy Co Director Relationship Specialty Start Date End Date Santosh Briones MD [address] [place] [address] [place] [address] PCP - General General Internal Medicine 04/18/22 04/22/22 Santosh Briones MD [address] [place] [address] [place] [address] PCP - General General Internal Medicine 04/23/22 Julius Cho MD [address] [place] [address] Referring Physician Internal Medicine 04/23/22 Lew Ross MD [address] [facility] [address] [place] [address] Cardiology 08/13/23 Karlos Pringle PA-C [address] [place] [address] Cardiology 11/23/23 documented as of this encounter
--- OUTSIDE RECORDS SUMMARY | 2025-05-02 08:50 | XMS_ITS | Encounter Summary ---
Author Organization [employer] ([place], [place], [place], [place], [place]) Address [address] [place] [address] Care Team Providers Care Intake Manager Name Role Phone Santosh Briones MD Primary Care Provider [phone] Santosh Briones MD Primary Care Provider [phone] Julius Cho MD Unavailable Lew Ross MD Unavailable Karlos Pringle PA-C Unavailable [phone] Encounter Details Date Type Department Care Team (Late st Contact Info) Description 12/19/2020 Transcribed Document [facility] [place] [facility] [place] [address] ProviderAle MD [address] [place] [address] Social History Tobacco Use Types Packs/Day Years Used Date Smoking Tobacco: Never Assessed Comments Unknown Sex and Gender Information Value Date Recorded Sex Assigned at Female 03/19/2022 10:49 AM SPANISH TUTOR Legal Sex Female 5:46 PM CDT Gender Identity Female 03/19/2022 10:49 AM SPANISH TUTOR Sexual Orientation Not on file documented as of this encounter Miscellaneous Notes * Cerner Conversion Note - Historical MD Alex - 12/19/2020 11:50 AM CDT [facility] [place] [address] JANIS FIGUEREDO :1965 Visit Time:12/19/2020 What to [...] Comments Follow up Thursday as scheduled Where: [address] [place] [address] [address] [place] [address]- Medications What How Much When Instructions Next Dose acetaminophen-oxyCODONE (acetaminophen-oxyCODONE 325 mg-7.5 mg oral tablet) 1 Tablet(s) Oral Every 6 Hours as needed for for pain Pickup at [place] [address] apixaban (Eliquis 5 mg oral tablet) 1 Tablet(s) Oral Two Times A Day atorvastatin (atorvastatin 40 mg oral tablet) 1 Tablet(s) Oral Every Day cephalexin (Keflex 500 mg oral capsule) 1 Capsule(s) Oral Every 8 Hours Duration: 1 Day(s) Pickup at [place] [address] cyanocobalamin (Vitamin B12 1000 mcg oral tablet) [...] for as needed for nausea/vomiting Pickup at [place] [address] Pharmacy Information [place] [address]: [address] [place] [phone] Take your medications faithfully. Do NOT skip [...] activities are safe for you. ??? Take plmo-ryx-sstomwc and prescription medicines only as told by [...] provider. Document Revised: 04/23/2018 Document Reviewed: 12/04/2017 [employer] Patient Education ?? 2020 [employer] Emergency Awareness and Preventative Care STROKE [...] Assistance with quitting is available by contacting [phone]-JWZENOW. This is a free resource providing counseling, [...] was given the opportunity to ask questions. Patient/Tech Brazer Tester Name: Patient/Tech Brazer Tester Signature: Relationship to Patient: Clinician/Hospital Tech Brazer Tester Signature: Date: documented in this encounter Plan of Treatment Not on file documented as of this encounter Visit Diagnoses Not on filedocumented in this encounter Care Teams Intake Manager Relationship Specialty Start Date End Date Santosh Briones MD [address] [facility] [address] [place], [place] [id number] PCP - General General Internal Medicine 04/18/22 04/22/22 Santosh Briones MD [address] [facility] [place] [address] [place], [place] [address] PCP - General General Internal Medicine 04/23/22 Julius Cho MD [address] [place] [address] Referring Physician Internal Medicine 04/23/22 [place] [address] [place] [address] [address] [place] [address] Cardiology 08/13/23 Karlos Pringle PA-C [address] [place] [address], [facility] [address] [place] [address] Cardiology 11/23/23 documented as of this encounter
--- OUTSIDE RECORDS SUMMARY | 2025-05-02 08:50 | XMS_ITS | Encounter Summary ---
Author Organization [employer] ([place], [place], [place], [place], [place]) Address [address] [place] [address] Care Team Providers Care Speed Operator Name Role Phone Santosh Briones MD Primary Care Provider [phone] Santosh Briones MD Primary Care Provider [phone] Julius Cho MD Unavailable Lew Ross MD Unavailable Karlos Pringle PA-C Unavailable [phone] Encounter Details Date Type Department Care Team (Late st Contact Info) Description 12/19/2020 Transcribed Document [facility] [place] [facility] [place] [address] ProviderAle MD [address] [place] [address] Social History Tobacco Use Types Packs/Day Years Used Date Smoking Tobacco: Never Assessed Comments Unknown Sex and Gender Information Value Date Recorded Sex Assigned at Female 03/19/2022 10:49 AM CLAIMS SERVICE REPRESENTATIVE Legal Sex Female 5:46 PM CDT Gender Identity Female 03/19/2022 10:49 AM CLAIMS SERVICE REPRESENTATIVE Sexual Orientation Not on file documented [...] - 12/19/2020 7:49 EDT Electronically signed by [facility] Conversion Lgsw Cerner at 08/22/2022 3:50 PM CDT documented in this encounter Plan of Treatment Not on file documented as of this encounter Visit Diagnoses Not on filedocumented in this encounter Care Teams Speed Operator Relationship Specialty Start Date End Date Santosh Briones MD [address] [place], [place] [address] PCP - General General Internal Medicine 04/18/22 04/22/22 Santosh Briones MD [address] [place], [place] [address] PCP - General General Internal Medicine 04/23/22 Julius Cho MD [address] [place] [address] Referring Physician Internal Medicine 04/23/22 Lew Ross MD [address] [facility] [address] [place] [address] Cardiology 08/13/23 Karlos Pringle PA-C [address] [facility] [address] [place] [address] Cardiology 11/23/23 documented as of this encounter
--- OUTSIDE RECORDS SUMMARY | 2025-05-02 08:50 | XMS_ITS | Clinical Summary ---
Author Organization [facility] Address [address] [place] [address] Care Team Providers Care Head Custodian Name Role Phone Santosh Briones MD Primary Care Provider Social History Tobacco Use Types Packs/Day Years [...] 07/17/2032 023 Insurance MEDICARE A & B [facility] MEDICARE ADVANTAGE HMO NON PAR Care Teams Head Custodian Relationship Specialty Start Date End Date Santosh Briones MD PCP - General Internal Medicine 02/27/22
--- OUTSIDE RECORDS SUMMARY | 2025-05-02 08:50 | XMS_ITS | Clinical Summary ---
Author Organization [employer] ([place], [place], [place], [place], [place]) Address [address] [address] Care Team Providers Care Steam Shovel Operating Engineer Name Role Phone Santosh Briones MD Primary Care Provider [phone] Julius Cho MD Unavailable Lew Ross MD Unavailable Karlos Pringle PA-C Unavailable [phone] Allergies Active Allergy Reactions Criticality Noted Date [...] Type Department Care Team Description 02/16/2025 Telephone [facility] Cardiology [address] [place] [address] Lesly Sanchez APRN Cardiac Clearance from Last 3 Months Immunizations Immunization Administration [...] a language other than Solomon Islander at [facility]? No 08/17/2023 [...] Sex Assigned at Female 03/19/2022 10:49 AM CLEAN OUT DRILLER HELPER Legal Sex Female 5:46 PM CDT Gender Identity Female 03/19/2022 10:49 AM CLEAN OUT DRILLER HELPER Sexual Orientation Not on file Last Filed [...] 12/30/2024 9:27 AM EDT Plan of Treatment Health Maintenance [...] Completed 01/28/2024 Medical Devices Implanted Type Area Highway Patrol Officer Device Identifier Shelf Expiration Date Model / Serial / Lot Base Tib 18mm [id number] - [id number] Implanted:Qty : 1 on 04/23/2022 by Massimo Blake DPM at [facility] IMPLANTS Left: Ankle ARIAS MED GRP:ARIAS MED TECH 03/13/[id number] / / [id number] Stem Mid Tib 16mm [id number] - [id number] Implanted:Qty : 2 on 04/23/2022 by Massimo Blake DPM at [facility] IMPLANTS Left: Ankle ARIAS MED GRP:ARIAS MED TECH 03/10/[id number] / / [id number] Stem Top Tib 16mm [id number] - [id number] Implanted:Qty : 1 on 04/23/2022 by Massimo Blake DPM at [facility] IMPLANTS Left: Ankle ARIAS MED GRP:ARIAS MED TECH 05/20/[id number] / / [id number] Cement Bone Smplx Tobra 40gm 6197-9-001 - [id number] Implanted:Qty : 3 on 04/23/2022 by Massimo Blake DPM at [facility] IMPLANTS Left: Ankle GIUSEPPE:GIUSEPPE ORTHOPAEDICS 08/02/2023 6197-9-001 / / [id number] Tray Tib Sz4 L [id number] - [id number] Implanted:Qty : 1 on 04/23/2022 by Massimo Blake DPM at [facility] IMPLANTS Left: Ankle ARIAS MED GRP:ARIAS MED TECH 02/20/[id number] / / [id number] Dome Inbone Talar Sulcus Sz 3 9113-4091-3 - [id number] Implanted:Qty : 1 on 04/23/2022 by Massimo Blake, DPM at [facility] IMPLANTS Left: Ankle ARIAS MED GRP:ARIAS MED TECH 10/31/20283413-2561-3 / / [id number] Insrt Ari Poly Sz3 [id number] - [id number] Implanted:Qty : 1 on 04/23/2022 by Massimo Blake, DPM at [facility] IMPLANTS Left: Ankle ARIAS MED GRP:ARIAS MED TECH 02/17/203096412465 / / [id number] Stem Talar 10mm [id number] - [id number] Implanted:Qty : 1 on 04/23/2022 by Massimo Blake, DPM at [facility] IMPLANTS Left: Ankle ARIAS MED GRP:ARIAS MED TECH 02/16/[id number] / / [id number] Bone Putty Stimulan 5cc 620-005 - [id number] Implanted:Qty : 1 on 08/18/2023 by Massimo Blake, DPM at [facility] IMPLANTS Left: Ankle BIOCOMPOSITES 03/03/2026 620-005 / / [id number] Insurance [facility] MEDICARE ADVANTAGE Advance Directives For more information, please contact: [phone] * Full Code (Latest Code Status on [...] 5:35 PM 08/18/2023 5:58 PM Care Teams Steam Shovel Operating Engineer Relationship Specialty Start Date End Date Santosh Briones MD [address] [facility] [place] [address] PCP - General General Internal Medicine 04/23/22 Julius Cho MD [address] [place] [address] Referring Physician Internal Medicine 04/23/22 Lew Ross MD [address] [facility] [address] [place] [address] Cardiology 08/13/23 Karlos Pringle PA-C [address] [facility] [place] [address] Cardiology 11/23/23
[2025-05-02 09:29] LABS: Hematocrit 39.3 % (37.0-47.0); Hemoglobin 12.2 g/dL (12.2-16.2); Immature Granulocytes % 0.3 %; Mean Corpuscular HGB Conc 31.0 g/dL (31.8-35.4); Mean Corpuscular Hemoglobin 29.4 pg (27.0-31.2); Mean Corpuscular Volume 94.7 fl (81-99); Nucleated Red Blood Cells % 0 %; Platelet Count 257 K/mm3 (142-424); Red Blood Count 4.15 M/mm3 (4.20-5.40); Red Cell Distribution Width-SD 45.9 fL; White Blood Count 6.8 K/mm3 (4.8-10.8)
[2025-05-02 09:46] LABS: Albumin Level 3.4 g/dl (3.5-5.0); Chloride 101 mmol/L (98-107)
[2025-05-02 09:47] LABS: Potassium 3.7 mmoL/L (3.5-5.1); Sodium 139 mmol/L (136-145)
[2025-05-02 09:49] LABS: Alanine Aminotransferase 30 U/L (12-78); Anion Gap 6.7 mEq/L (5-15); Aspartate Amino Transferase 39 U/L (14-36); Blood Urea Nitrogen 25 mg/dl (7-17); Carbon Dioxide 35 mmol/L (22.0-30.0); Creatinine,Serum 1.20 mg/dl (0.52-1.04); Estimated Glomerular Filt Rate 46 ml/min (>60); GFR (African American) 55 ML/MIN (>60)
[2025-05-02 09:50] LABS: Albumin/Globulin Ratio 1.3 (1.1-1.8); Alkaline Phosphatase 95 U/L (38-126); Bilirubin,Total 0.5 mg/dl (0.2-1.3); Calcium 9.3 mg/dl (8.4-10.2); Globulin 2.6 g/dL (1.3-3.2); Glucose 83 mg/dl (74-100); Total Protein,Serum 6.0 g/dl (6.3-8.2)
[2025-05-02 09:58] LABS: NT Pro Brain Natriuretic Pep. 1030 pg/mL (0-125)
[2025-05-02 10:24] LABS: Ferritin 74.7 ng/ml (11.1-264)
== END 2025-05-02 23:59 | disposition home or self-care (01) ==
LOC: LAB 08:47
PROVIDERS: PCP Nurse Practitioner Family; Visit Provider Physician Assistant
DX: I42.8 Other cardiomyopathies (principal); R94.31 Abnormal electrocardiogram [ECG] [EKG]; R93.1 Abnormal findings on diagnostic imaging of heart and coronary circulation; I50.20 Unspecified systolic (congestive) heart failure; Z95.828 Presence of other vascular implants and grafts; I73.9 Peripheral vascular disease, unspecified; K95.89 Other complications of other bariatric procedure; D50.8 Other iron deficiency anemias
CPT/HCPCS: 36415; 80053; 82728; 83880; 85025